=== PATIENT | female | born 1955 | race Caucasian/White ===

== ENCOUNTER → 2017-12-09 10:24 | Outpatient (CLI) | payer OTHER, SELFPAY ==
--- NOTE | 2017-12-09 10:24 | DT_ITS ---
This patient was seen during an EMR downtime December 05, 2017 - December 12, 2017. This patient may have a combination of paper and electronic documentation or all paper documentation. All documentation is viewable within the e-chart portion of [facility] for each patient visit.
[2017-12-09 13:38] LABS: Hematocrit 41.6 % (37-47); Hemoglobin 13.2 g/dl (12.0-15.0); Mean Corp Hgb Conc 31.7 g/gl (32-36); Mean Corpuscular Hgb 26.8 pg (27.0-32.0); Mean Corpuscular Volume 84.6 fL (81-99); Platelet Count 327 K/mm3 (150-450); RBC Distribution Width CV 13.8 % (11.6-14.6); RBC Distribution Width SD 42.1 fl (35.1-43.9); Red Blood Count 4.92 M/mm3 (4.2-5.4); White Blood Count 7.6 K/mm3 (4.4-11.0)
[2017-12-09 13:39] LABS: Absolute Lymphocyte Count 2.26 X10^3/ul (0.83-4.51); Absolute Neutrophil Count 4.5 X10^3/uL (2.0-7.7); Basophil# 0.04 X10^3/uL; Basophil% 0.5 % (0-1); Eosinophil# 0.19 X10^3/uL; Eosinophils% 2.5 % (0-5); Lymphocyte # 2.26 X10^3/ul (4.0); Lymphocyte % 29.9 % (19-41); Mean Platelet Vol. 10.2 fl (6.2-12.0); Monocyte% 7.9 % (0-10); Neutrophil # 4.46 X10^3/uL (2.7-7.7); Neutrophil % 58.9 % (47-70); POSITIVE COUNT NO; POSITIVE DIFFERENTIAL NO; POSITIVE MORPHOLOGY NO; Total Cells Counted 0.02 (MANUAL DIFF)
[2017-12-09 14:18] LABS: Vitamin B12 411 pg/mL (211-911)
[2017-12-09 16:38] LABS: Hemoglobin A1c 6.1 % (4.2-6.3)
[2017-12-10 06:06] LABS: ALB/GLOB Ratio 0.8 RATIO (0.9-2.4); AST(SGOT) 15 U/L (15-37); Alanine Aminotransfer ALT/SGPT 29 U/L (13-56); Albumin, Serum 3.5 g/dL (3.2-5.0); Alkaline Phosphatase 105 U/L (45-117); BUN 12 mg/dL (7-18); BUN/Creat Ratio 17.1 RATIO (10-20); Calcium,Total 9.2 mg/dL (8.5-10.1); EST Glomerular Filtration Rate 90 mL/min (>60); Est Glom Filt Rate - Afr Amer 109 mL/min (>60); Globulin 4.5 g/dL (2.2-4.2); Glucose 100 mg/dL (74-106); Microalbumin,Random Urine 15.1 mg/L (NO RANGE EST.)
[2017-12-10 06:07] LABS: Anion Gap 6 (5-15); Chloride 104 mmol/L (98-107); Cholesterol 146 mg/dL (200); High Density Lipoprotein 63 mg/dL; Magnesium 1.9 mg/dL (1.6-2.6); Sodium Level 142 mmol/L (136-145); Thyroid Stim Hormone (TSH) 2.15 uIU/mL (0.358-3.74); Triglycerides 57 mg/dL; Very Low Density Lipoprotein 11 mg/dL (5-40)
[2017-12-19 11:12] LABS: Vitamin B1, Thiamine 117.4 nmol/L (66.5-200.0)
== END ==
PROVIDERS: Family Provider Family Medicine; PCP Family Medicine; Visit Provider Family Medicine
DX: I48.91 Unspecified atrial fibrillation (principal); R63.5 Abnormal weight gain; E11.40 Type 2 diabetes mellitus with diabetic neuropathy, unspecified
CPT/HCPCS: 36415; 80053; 80061; 82043; 82570; 82607; 83036; 83735; 84425; 84443; 85025; 87070; 87075; 87077; 87186; 87205

== ENCOUNTER → 2017-12-09 15:00 | Outpatient (CLI) | payer OTHER, SELFPAY ==
--- NOTE | 2017-12-09 15:00 | DT_ITS ---
This patient was seen during an EMR downtime December 05, 2017 - December 12, 2017. This patient may have a combination of paper and electronic documentation or all paper documentation. All documentation is viewable within the e-chart portion of [facility] for each patient visit.
== END ==
PROVIDERS: Visit Provider Family Medicine
DX: L72.0 Epidermal cyst (principal)
CPT/HCPCS: 87070; 87075; 87205

== ENCOUNTER → 2018-01-09 11:47 | Outpatient (CLI) | payer OTHER, SELFPAY ==
--- NOTE | 2018-01-09 11:49 | RAD_ITS ---
STUDY: X-RAY - LEFT WRIST REASON FOR EXAM: Female, 62 years old. Pain following a fall. TECHNIQUE: 3 view(s) of the wrist were obtained. COMPARISON: None. FINDINGS: The nondisplaced fracture involving the lateral aspect of the distal radial metaphysis with extension to the articular surface. Normal radiocarpal articulation. Normal distal radioulnar articulation. Normal carpal bones. Normal carpal articulations. Normal carpometacarpal articulation of the thumb. Normal second through fifth carpometacarpal articulations. Normal visualized metacarpal bones. Soft tissue swelling. RAD/Wrist min 3 Views IMPRESSION: Nondisplaced fracture involving the lateral aspect of the distal radial metaphysis with extension to the articular surface. Soft tissue swelling. Electronically Signed: Damon Merrill MD at 12:13 EDT Tel [phone], Service support ,
--- NOTE | 2018-01-09 11:49 | RAD_ITS ---
STUDY: X-RAY - LEFT HAND REASON FOR EXAM: Female, 62 years old. Pain following a fall. TECHNIQUE: 3 view(s) of the hand. COMPARISON: None. FINDINGS: Normal radiocarpal articulation. Normal distal radioulnar joint. Normal visualized carpal bones. Normal carpal articulations Normal carpometacarpal articulation of the thumb. Normal second through fifth carpometacarpal joints. Normal metacarpi. Normal metacarpophalangeal joint of the thumb. Normal interphalangeal joint of the thumb. Normal proximal and distal phalanges of the thumb. Normal metacarpophalangeal joints of the second through fifth fingers. Normal proximal and distal interphalangeal joints of the second through fifth fingers. Normal phalanges of the second through fifth fingers. The soft tissue structures are unremarkable. RAD/Hand Min 3 Views IMPRESSION: Normal x-ray examination of the hand. Electronically Signed: Damon Merrill MD at 12:12 EDT Tel [phone], Service support ,
== END ==
PROVIDERS: Family Provider Family Medicine; PCP Family Medicine; Visit Provider Family Medicine
DX: M79.642 Pain in left hand (principal); S52.502A Unspecified fracture of the lower end of left radius, initial encounter for closed fracture; X58.XXXA Exposure to other specified factors, initial encounter; Y93.9 Activity, unspecified; Y92.9 Unspecified place or not applicable; Y99.9 Unspecified external cause status
CPT/HCPCS: 73110; 73130

== ENCOUNTER → 2018-01-16 12:50 | Outpatient (CLI) | payer OTHER, SELFPAY ==
--- NOTE | 2018-01-17 17:54 | LEAS ---
Arterial Study - Arterial Study Arterial Study: This is a 62-year-old female with history of smoking. The patient presented with paresthesias and altered perception in her lower extremities. Suspecting the presence of atherosclerotic peripheral arterial occlusive disease, the patient was brought to the noninvasive vascular laboratory at this time for the purpose of bilateral noninvasive lower extremity arterial assessment. Doppler signal assessment was used to evaluate the pulses at ankle level bilaterally. The posterior tibial and dorsalis pedis pulses were triphasic bilaterally. Segmental limb pressures were obtained bilaterally. The right ankle pressure, as determined by posterior tibial pulse, was measured at 158 mmHg. The right ankle pressure, as determined by dorsalis pedis pulse, was measured at 160 mmHg. The right digital pressure was measured at 116 mmHg. The left ankle pressure, as determined by posterior tibial pulse, was measured at 162 mmHg. The left ankle pressure, as determined by dorsalis pedis pulse, was measured at 158 mmHg. The left digital pressure was measured at 129 mmHg. Pulse-volume recordings were obtained bilaterally and segmentally. Waveform amplitudes appeared to be satisfactory at all levels bilaterally, including low thigh, calf, ankle, and digital levels. Resting ankle-brachial indices were calculated bilaterally. The resting right ankle-brachial index was calculated to be 1.05. The resting left ankle-brachial index was calculated to be 1.06. Digital-brachial indices were calculated bilaterally. The right digital-brachial index was calculated to be 0.76. The left digital-brachial index was calculated to be 0.84. The patient was then exercised on a treadmill for 3 minutes at 2.0 mph and a 5% incline. Exercise was stopped after 3 minutes due to complaint of fatigue. Ankle pressures were obtained at intervals following cessation of exercise. The right ankle pressure, 1 minute following cessation of exercise, was measured at 225 mmHg. The left ankle pressure, 1 minute following cessation of exercise, was measured at 210 mmHg. 3 minutes following cessation of exercise, the right ankle pressure was measured at 181 mmHg, and the left ankle pressure was measured at 178 mmHg. Impression: Based upon findings of this resting noninvasive lower extremity arterial study, there is no evidence of significant atherosclerotic peripheral arterial occlusive disease in the lower extremities bilaterally. Triphasic waveforms were noted at ankle level bilaterally. Resting ankle-brachial indices were bilaterally normal. Digital-brachial indices were also normal bilaterally. Following a period of exercise, ankle pressures augmented bilaterally, which is a normal physiological response. In summary, this represents a normal resting and exercise noninvasive lower extremity arterial study bilaterally.
--- NOTE | 2018-01-17 18:03 | LEAS_ITS ---
Arterial Study - Arterial Study Arterial Study: This is a 62-year-old female with history of smoking. The patient presented with paresthesias and altered perception in her lower extremities. Suspecting the presence of atherosclerotic peripheral arterial occlusive disease, the patient was brought to the noninvasive vascular laboratory at this time for the purpose of bilateral noninvasive lower extremity arterial assessment. Doppler signal assessment was used to evaluate the pulses at ankle level bilaterally. The posterior tibial and dorsalis pedis pulses were triphasic bilaterally. Segmental limb pressures were obtained bilaterally. The right ankle pressure, as determined by posterior tibial pulse, was measured at 158 mmHg. The right ankle pressure, as determined by dorsalis pedis pulse, was measured at 160 mmHg. The right digital pressure was measured at 116 mmHg. The left ankle pressure, as determined by posterior tibial pulse, was measured at 162 mmHg. The left ankle pressure, as determined by dorsalis pedis pulse, was measured at 158 mmHg. The left digital pressure was measured at 129 mmHg. Pulse-volume recordings were obtained bilaterally and segmentally. Waveform amplitudes appeared to be satisfactory at all levels bilaterally, including low thigh, calf, ankle, and digital levels. Resting ankle-brachial indices were calculated bilaterally. The resting right ankle-brachial index was calculated to be 1.05. The resting left ankle- brachial index was calculated to be 1.06. Digital-brachial indices were calculated bilaterally. The right digital- brachial index was calculated to be 0.76. The left digital-brachial index was calculated to be 0.84. The patient was then exercised on a treadmill for 3 minutes at 2.0 mph and a 5% incline. Exercise was stopped after 3 minutes due to complaint of fatigue. Ankle pressures were obtained at intervals following cessation of exercise. The right ankle pressure, 1 minute following cessation of exercise, was measured at 225 mmHg. The left ankle pressure, 1 minute following cessation of exercise, was measured at 210 mmHg. 3 minutes following cessation of exercise, the right ankle pressure was measured at 181 mmHg, and the left ankle pressure was measured at 178 mmHg. Impression: Based upon findings of this resting noninvasive lower extremity arterial study, there is no evidence of significant atherosclerotic peripheral arterial occlusive disease in the lower extremities bilaterally. Triphasic waveforms were noted at ankle level bilaterally. Resting ankle-brachial indices were bilaterally normal. Digital-brachial indices were also normal bilaterally. Following a period of exercise, ankle pressures augmented bilaterally, which is a normal physiological response. In summary, this represents a normal resting and exercise noninvasive lower extremity arterial study bilaterally.
== END ==
PROVIDERS: Family Provider Family Medicine; PCP Family Medicine; Visit Provider Family Medicine
DX: R20.9 Unspecified disturbances of skin sensation (principal); R20.2 Paresthesia of skin
CPT/HCPCS: 93924

== ENCOUNTER → 2018-03-15 10:50 | Outpatient (CLI) | payer OTHER, SELFPAY ==
[2018-03-15 11:43] LABS: Absolute Lymphocyte Count 1.76 X10^3/ul (0.83-4.51); Absolute Neutrophil Count 4.1 X10^3/uL (2.0-7.7); Basophil# 0.06 X10^3/uL; Basophil% 0.9 % (0-1); Eosinophil# 0.16 X10^3/uL; Eosinophils% 2.4 % (0-5); Hematocrit 40.2 % (37-47); Hemoglobin 12.8 g/dl (12.0-15.0); Lymphocyte # 1.76 X10^3/ul (4.0); Lymphocyte % 26.3 % (19-41); Mean Corp Hgb Conc 31.8 g/gl (32-36); Mean Corpuscular Hgb 26.7 pg (27.0-32.0); Mean Corpuscular Volume 83.9 fL (81-99); Monocyte# 0.59 X10^3/uL; Monocyte% 8.8 % (0-10); Neutrophil # 4.12 X10^3/uL (2.7-7.7); Neutrophil % 61.5 % (47-70); POSITIVE COUNT NO; POSITIVE DIFFERENTIAL NO; POSITIVE MORPHOLOGY NO; Platelet Count 320 K/mm3 (150-450); RBC Distribution Width SD 42.4 fl (35.1-43.9); Red Blood Count 4.79 M/mm3 (4.2-5.4); White Blood Count 6.7 K/mm3 (4.4-11.0)
[2018-03-15 12:08] LABS: ALB/GLOB Ratio 0.8 RATIO (0.9-2.4); AST(SGOT) 12 U/L (15-37); Alanine Aminotransfer ALT/SGPT 23 U/L (13-56); Albumin, Serum 3.4 g/dL (3.2-5.0); Alkaline Phosphatase 100 U/L (45-117); Anion Gap 11 (5-15); BUN 14 mg/dL (7-18); BUN/Creat Ratio 20.7 RATIO (10-20); Calcium,Total 9.5 mg/dL (8.5-10.1); Chloride 105 mmol/L (98-107); Cholesterol 141 mg/dL (200); Creatinine, Serum 0.68 mg/dL (0.55-1.02); EST Glomerular Filtration Rate 94 mL/min (>60); Est Glom Filt Rate - Afr Amer 113 mL/min (>60); Globulin 4.4 g/dL (2.2-4.2); Glucose 93 mg/dL (74-106); High Density Lipoprotein 59 mg/dL; Magnesium 1.9 mg/dL (1.6-2.6); Potassium 4.1 mmol/L (3.5-5.1); Protein, Total 7.8 g/dL (6.4-8.2); Sodium Level 140 mmol/L (136-145); Triglycerides 87 mg/dL; Very Low Density Lipoprotein 17 mg/dL (5-40)
[2018-03-15 12:10] LABS: Hemoglobin A1c 5.8 % (4.2-6.3)
== END ==
PROVIDERS: Family Provider Family Medicine; PCP Family Medicine; Visit Provider Family Medicine
DX: I48.91 Unspecified atrial fibrillation (principal); E11.9 Type 2 diabetes mellitus without complications; E78.5 Hyperlipidemia, unspecified
CPT/HCPCS: 36415; 80053; 80061; 83036; 83735; 85025

== ENCOUNTER 2018-03-30 12:30 | Outpatient (RCR) | payer OTHER, SELFPAY ==
--- NOTE | 2018-02-15 12:47 | HP.PTEVAL ---
Patient's Visit Information PANKAJ NIXON is a 62 year old F referred to Physical Therapy by Gerardo Adkins MD with a diagnosis of L wrist Fx. Date of Evaluation: 02/15/18 Physical Therapist: Benjamín Castro PT, - Visit Plan Frequency: 2-3x /Week Duration: 4-6 Weeks Plan: L wrist P/AA/AROM and mobilizations, stretching, strengthening, UBE, and HEP - Subjective Subjective: DOI: 01/02/18. Pt reports she was in her basement when she tripped over a rug. Pt reports she fell with resulted in many injuries, but the worst was a fractured L wrist. Pt reports she has been in a wrist brace since January 10. Pt reports she is to continue wearing that brace for 2 more weeks with exception to PT. No PMHx. Pt is R hand dominent. Pt is currently retired. Pt reports she is not able to do a lot of ADL's, such as getting dressed, secondary to her L wrist pain. No sleep diff at this time. 1/10 pain at rest, 3/10 at worst (a sudden twinge that occurs in L wrist) - Pain L wrist Pain Intensity (Out of 10): 1 Pain Intensity Range: 3 - Objective Neuro: B UE sensation is WNL to light touch. Girth at wrist: L wrist: 18 cm, R wrist 17 cm. Observation: Obvious swelling still present in L wrist. ROM: R wrist flex= 60, ext= 65, sup= 90, pro= 90; L wrist flex= 25, ext= 55, sup= 45, pro= 90 degrees. MMT: R wrist 5/5 throughout. L wrist is 2-/5 throughout available range - Goals Goal 1:: Decrease L wrist pain x 50% to aid with ADL's Goal Time Frame: 4-6 Weeks Goal 2:: Increase L wrist flex and ext x 10-15 degrees to aid with IADL's Goal Time Frame: 4-6 Weeks Goal 3:: Increase L wrist strength x 1 grade to aid with IADL's Goal Time Frame: 4-6 Weeks Goal 4:: I with HEP Goal Time Frame: 4-6 Weeks - Rehabilitation Potential Physical Therapy Diagnosis: L wrist pain, weakness, and limited ROM secondary to a R wrist Fx Rehabilitation Potential: Good - Anticipated Interventions Patient/Client Instruction: Educate patient on: Condition, Plan of Care For the Purpose of:: To improve self management Therapeutic Exercise to Include: Strength training, Endurance training, Flexibilty training, Passive ROM, Active ROM For the Purpose of:: To decrease pain, To increase ROM, To improve muscle performance and motor function Cryotherapy (ice pack, ice massage): Yes For the Purpose of:: To decrease pain Thank you for the opportunity to evaluate your patient. For Medicare and Medicare HMO plans, please review the plan of care and approve it. It will need to be FAXED BACK to us at [phone] for Medicare purposes. Please let me know if there are questions or concerns regarding this plan of care. Physician Signature: Date:
--- NOTE | 2018-03-30 12:46 | HP.PTDCSUM ---
HP - PT D/C Summary It has been my pleasure to treat PANKAJ NIXON under orders from Gerardo Adkins MD, for the diagnosis of L wrist Fx for a total of 10 visit(s). Discharge Date: Please see the following information for a summary of their discharge status. - Subjective Subjective: No pain this date. Ready for discharge - Pain L wrist Pain Intensity (Out of 10): 0 - Objective Objective/Function: L wrist pain 0/10. L wrist ROM: flex= 55, ext= 65. L wrist MMT: 5/5 throughout. Pt is I with HEP. Rx goals achieved - Goals Goal 1:: Decrease L wrist pain x 50% to aid with ADL's Goal Progress: Goal Met Goal 2:: Increase L wrist flex and ext x 10-15 degrees to aid with IADL's Goal Progress: Goal Met Goal 3:: Increase L wrist strength x 1 grade to aid with IADL's Goal Progress: Goal Met Goal 4:: I with HEP Goal Progress: Goal Met - Plan Plan: Discharge - D/C Information If there are questions or concerns regarding this patient's physical therapy, please feel free to call me at [phone]. Thank you for the referral of this patient. Sincerely, Benjamín Castro, PT,
== END 2018-03-30 19:00 | disposition home or self-care (01) ==
LOC: PT 12:30
PROVIDERS: Family Provider Family Medicine; PCP Family Medicine; Visit Provider Specialist
DX: S52.572D Other intraarticular fracture of lower end of left radius, subsequent encounter for closed fracture with routine healing (principal)
CPT/HCPCS: 97110; 97161; 97530

== ENCOUNTER → 2018-06-12 10:13 | Outpatient (CLI) | payer OTHER, SELFPAY ==
[2018-06-12 12:19] LABS: Absolute Lymphocyte Count 1.93 X10^3/ul (0.83-4.51); Basophil# 0.04 X10^3/uL; Basophil% 0.6 % (0-1); Eosinophil# 0.16 X10^3/uL; Eosinophils% 2.4 % (0-5); Hematocrit 40.2 % (37-47); Hemoglobin 12.5 g/dl (12.0-15.0); Lymphocyte # 1.93 X10^3/ul (4.0); Lymphocyte % 29.1 % (19-41); Mean Corp Hgb Conc 31.1 g/gl (32-36); Mean Corpuscular Hgb 26.7 pg (27.0-32.0); Mean Corpuscular Volume 85.9 fL (81-99); Mean Platelet Vol. 10.5 fl (6.2-12.0); Monocyte# 0.49 X10^3/uL; Monocyte% 7.4 % (0-10); Neutrophil # 4.01 X10^3/uL (2.7-7.7); Neutrophil % 60.3 % (47-70); Platelet Count 309 K/mm3 (150-450); RBC Distribution Width CV 14.2 % (11.6-14.6); RBC Distribution Width SD 43.3 fl (35.1-43.9); Red Blood Count 4.68 M/mm3 (4.2-5.4); White Blood Count 6.6 K/mm3 (4.4-11.0)
[2018-06-12 12:39] LABS: Hemoglobin A1c 6.2 % (4.2-6.3)
[2018-06-12 12:42] LABS: POSITIVE COUNT NO; POSITIVE DIFFERENTIAL NO; POSITIVE MORPHOLOGY NO
[2018-06-12 12:47] LABS: ALB/GLOB Ratio 0.9 RATIO (0.9-2.4); AST(SGOT) 13 U/L (15-37); Alanine Aminotransfer ALT/SGPT 24 U/L (13-56); Albumin, Serum 3.6 g/dL (3.2-5.0); Alkaline Phosphatase 97 U/L (45-117); Anion Gap 5 (5-15); BUN 12 mg/dL (7-18); BUN/Creat Ratio 17.7 RATIO (10-20); Calcium,Total 9.1 mg/dL (8.5-10.1); Chloride 105 mmol/L (98-107); Creatinine, Serum 0.68 mg/dL (0.55-1.02); EST Glomerular Filtration Rate 93 mL/min (>60); Est Glom Filt Rate - Afr Amer 113 mL/min (>60); Globulin 4.1 g/dL (2.2-4.2); Glucose 127 mg/dL (74-106); Magnesium 1.8 mg/dL (1.6-2.6); Potassium 3.8 mmol/L (3.5-5.1); Protein, Total 7.7 g/dL (6.4-8.2); Sodium Level 140 mmol/L (136-145)
[2018-06-12 12:52] LABS: Microalbumin,Random Urine 13.7 mg/L (NO RANGE EST.); Microalbumin:Creatinine Ratio 8.2 mg/g CRE (<30 mg/g CRE)
== END ==
PROVIDERS: Family Provider Family Medicine; PCP Family Medicine; Referring Provider Family Medicine; Visit Provider Family Medicine
DX: E11.9 Type 2 diabetes mellitus without complications (principal); I48.91 Unspecified atrial fibrillation; E78.5 Hyperlipidemia, unspecified; G47.33 Obstructive sleep apnea (adult) (pediatric)
CPT/HCPCS: 36415; 80053; 82043; 82570; 83036; 83735; 85025

== ENCOUNTER → 2018-10-25 12:12 | Outpatient (CLI) | payer OTHER, SELFPAY ==
[2018-10-18 10:53] VITALS: BMI 46.7
[2018-10-25 14:17] LABS: Absolute Lymphocyte Count 1.89 X10^3/ul (0.83-4.51); Absolute Neutrophil Count 4.1 X10^3/uL (2.0-7.7); Basophil# 0.06 X10^3/uL; Basophil% 0.9 % (0-1); Eosinophil# 0.15 X10^3/uL; Eosinophils% 2.3 % (0-5); Hematocrit 39.1 % (37-47); Hemoglobin 12.3 g/dl (12.0-15.0); Lymphocyte # 1.89 X10^3/ul (4.0); Lymphocyte % 28.5 % (19-41); Mean Corp Hgb Conc 31.5 g/gl (32-36); Mean Corpuscular Hgb 26.4 pg (27.0-32.0); Mean Corpuscular Volume 83.9 fL (81-99); Mean Platelet Vol. 10.3 fl (6.2-12.0); Monocyte# 0.47 X10^3/uL; Monocyte% 7.1 % (0-10); Neutrophil # 4.05 X10^3/uL (2.7-7.7); Neutrophil % 61.2 % (47-70); Platelet Count 297 K/mm3 (150-450); RBC Distribution Width CV 14.4 % (11.6-14.6); RBC Distribution Width SD 44.3 fl (35.1-43.9); Red Blood Count 4.66 M/mm3 (4.2-5.4); White Blood Count 6.6 K/mm3 (4.4-11.0)
[2018-10-25 14:18] LABS: POSITIVE COUNT NO; POSITIVE DIFFERENTIAL NO; POSITIVE MORPHOLOGY NO
[2018-10-25 14:34] LABS: ALB/GLOB Ratio 0.9 RATIO (0.9-2.4); AST(SGOT) 17 U/L (15-37); Alanine Aminotransfer ALT/SGPT 23 U/L (13-56); Albumin, Serum 3.5 g/dL (3.2-5.0); Alkaline Phosphatase 107 U/L (45-117); Anion Gap 3 (5-15); BUN 14 mg/dL (7-18); BUN/Creat Ratio 21.7 RATIO (10-20); Calcium,Total 9.2 mg/dL (8.5-10.1); Chloride 106 mmol/L (98-107); Cholesterol 141 mg/dL (200); Creatinine, Serum 0.64 mg/dL (0.55-1.02); EST Glomerular Filtration Rate 99 mL/min (>60); Est Glom Filt Rate - Afr Amer 119 mL/min (>60); Globulin 3.7 g/dL (2.2-4.2); Glucose 81 mg/dL (74-106); High Density Lipoprotein 57 mg/dL; Magnesium 1.9 mg/dL (1.6-2.6); Potassium 4.4 mmol/L (3.5-5.1); Protein, Total 7.2 g/dL (6.4-8.2); Sodium Level 140 mmol/L (136-145); Triglycerides 112 mg/dL; Very Low Density Lipoprotein 22 mg/dL (5-40)
[2018-10-25 14:37] LABS: Hemoglobin A1c 6.1 % (4.2-6.3)
== END ==
PROVIDERS: Family Provider Family Medicine; PCP Family Medicine; Referring Provider Family Medicine; Visit Provider Family Medicine
DX: E11.9 Type 2 diabetes mellitus without complications (principal); I48.91 Unspecified atrial fibrillation; E78.5 Hyperlipidemia, unspecified
CPT/HCPCS: 36415; 80053; 80061; 83036; 83735; 85025

== ENCOUNTER → 2019-01-08 12:26 | Outpatient (CLI) | payer OTHER, SELFPAY ==
[2018-10-18 10:53] VITALS: BMI 46.7
--- NOTE | 2019-01-08 12:28 | BI_ITS ---
MAMMOGRAPHY - BILATERAL SCREENING REASON FOR EXAM: Female, 63 years old. Routine annual screening examination. PERTINENT HISTORY: Mother with breast cancer. Remote left excisional breast biopsy. TECHNIQUE: Digital bilateral breast addison (3D mammographic acquisition) in the CC and MLO projections. 2-D mediolateral oblique (MLO) and craniocaudad (CC) views of both breasts were obtained. CAD: Full Field Digital Mammography with Computer Added Detection was performed. COMPARISON: Comparison is made with prior examination dated May 11, 2016. FINDINGS: Breast Composition: There are scattered areas of fibroglandular density. There are no dominant masses or suspicious calcifications. There is a 5.7 mm x 5.4 mm well-defined nodule in the anterior upper lateral aspect of the right breast. This has increased in size as compared to prior study. Correlation with ultrasound is recommended. Stable 4.5 mm nodule in the upper outer aspect of the left breast most likely represents a small lymph node. Stable bilateral benign-appearing axillary lymph nodes. No other significant abnormalities are identified. BI/SCREEN MAMM (CAD) W/ADDISON BILAT IMPRESSION: Slight increase in size of a right breast nodule as described. Correlation with ultrasound is recommended. ASSESSMENT CATEGORY: BIRADS Category 0: Incomplete. Need additional imaging evaluation. A letter regarding these results will be sent to the patient by the facility within 30 days. Approximately 10% of breast cancers are not detected by mammography. A normal mammogram should not delay biopsy of a clinically suspicious abnormality. [id number] Electronically Signed: Damon Merrill, at 15:35 EDT , Service support ,
== END ==
PROVIDERS: Family Provider Family Medicine; PCP Family Medicine; Referring Provider Family Medicine; Visit Provider Family Medicine
DX: Z12.31 Encounter for screening mammogram for malignant neoplasm of breast (principal)
CPT/HCPCS: 77063; 77067

== ENCOUNTER → 2019-01-11 10:38 | Outpatient (CLI) | payer OTHER, SELFPAY ==
[2018-10-18 10:53] VITALS: BMI 46.7
--- NOTE | 2019-01-11 10:40 | US_ITS ---
STUDY: ULTRASOUND BREAST - RIGHT REASON FOR EXAM: Female, 63 years old. Abnormal screening mammogram. TECHNIQUE: Axial and longitudinal images of the RIGHT breast were performed with a high resolution ultrasound transducer. COMPARISON: Comparison is made with prior mammogram dated January 08, 2019. FINDINGS: RIGHT Breast: There is a 6 mm x 7 mm x 4 mm cyst at the 9:00 position of the breast is 6 cm from the nipple. This corresponds to the mammographic findings. US/Breast Limited Unilateral IMPRESSION: 6 mm x 7 mm x 4 mm cyst. This corresponds to the mammographic findings. Routine mammographic follow-up is recommended. ASSESSMENT CATEGORY: BIRADS Category 2: Benign. A letter regarding these results will be sent to the patient by the facility within 30 days. Electronically Signed: Damon Merrill, at 12:40 EDT , Service support ,
== END ==
PROVIDERS: Family Provider Family Medicine; PCP Family Medicine; Referring Provider Family Medicine; Visit Provider Family Medicine
DX: R92.8 Other abnormal and inconclusive findings on diagnostic imaging of breast (principal); N63.0 Unspecified lump in unspecified breast
CPT/HCPCS: 76642

== ENCOUNTER → 2019-03-13 09:05 | Outpatient (CLI) | payer OTHER, SELFPAY ==
[2018-10-18 10:53] VITALS: BMI 46.7
[2019-03-13 10:19] LABS: Absolute Neutrophil Count 3.4 X10^3/uL (2.0-7.7); Basophil# 0.05 X10^3/uL; Basophil% 0.8 % (0-1); Eosinophil# 0.25 X10^3/uL; Eosinophils% 4.2 % (0-5); Hematocrit 41.5 % (37-47); Hemoglobin 12.7 g/dL (12.0-15.0); Lymphocyte % 30.5 % (19-41); Mean Corp Hgb Conc 30.6 g/dL (32-36); Mean Corpuscular Hgb 26.2 pg (27.0-32.0); Mean Corpuscular Volume 85.7 fL (81-99); Mean Platelet Vol. 10.6 fl (6.2-12.0); Monocyte# 0.44 X10^3/uL; Monocyte% 7.4 % (0-10); NRBC Flagged by Analyzer 0 % (0-5); Neutrophil # 3.36 X10^3/uL (2.7-7.7); Neutrophil % 56.9 % (47-70); Platelet Count 300 K/mm3 (150-450); RBC Distribution Width CV 13.9 % (11.6-14.6); RBC Distribution Width SD 43.2 fl (35.1-43.9); Red Blood Count 4.84 M/mm3 (4.2-5.4); White Blood Count 5.9 K/mm3 (4.4-11.0)
[2019-03-13 10:48] LABS: Hemoglobin A1c 6.5 % (4.2-6.3)
[2019-03-13 11:00] LABS: ALB/GLOB Ratio 0.8 RATIO (0.9-2.4); AST(SGOT) 15 U/L (15-37); Alanine Aminotransfer ALT/SGPT 24 U/L (13-56); Albumin, Serum 3.2 g/dL (3.2-5.0); Alkaline Phosphatase 94 U/L (45-117); Anion Gap 5 (5-15); BUN 14 mg/dL (7-18); BUN/Creat Ratio 18.4 RATIO (10-20); Calcium,Total 9.1 mg/dL (8.5-10.1); Chloride 108 mmol/L (98-107); Cholesterol 136 mg/dL (200); Creatinine, Serum 0.76 mg/dL (0.55-1.02); EST Glomerular Filtration Rate 81 mL/min (>60); Est Glom Filt Rate - Afr Amer 99 mL/min (>60); Glucose 124 mg/dL (74-106); High Density Lipoprotein 56 mg/dL; Magnesium 1.9 mg/dL (1.6-2.6); Potassium 4.2 mmol/L (3.5-5.1); Protein, Total 7.2 g/dL (6.4-8.2); Sodium Level 144 mmol/L (136-145); Triglycerides 78 mg/dL; Very Low Density Lipoprotein 16 mg/dL (5-40)
== END ==
PROVIDERS: Family Provider Family Medicine; PCP Family Medicine; Referring Provider Family Medicine; Visit Provider Family Medicine
DX: I48.91 Unspecified atrial fibrillation (principal); E11.9 Type 2 diabetes mellitus without complications; E78.5 Hyperlipidemia, unspecified
CPT/HCPCS: 36415; 80053; 80061; 83036; 83735; 85025

== ENCOUNTER → 2019-05-01 12:48 | Outpatient (CLI) | payer OTHER, SELFPAY ==
[2019-05-01 12:45] VITALS: BMI 46.7
--- NOTE | 2019-05-01 12:49 | RAD_ITS ---
STUDY: X-RAY - RIGHT KNEE REASON FOR EXAM: Female, 63 years old. Knee pain. TECHNIQUE: 4 view(s) of the knee. COMPARISON: None. FINDINGS: Normal visualized distal femur. Normal visualized proximal tibia and fibula. Normal proximal tibiofibular articulation. Moderate medial compartmental arthrosis with osteophyte formation. Mild arthrosis of the lateral femorotibial compartment. Mild arthrosis of the patellofemoral compartment. The soft tissue structures are unremarkable. RAD/Knee 4 or More Views IMPRESSION: Tricompartmental arthrosis as described. Electronically Signed: Asher Mo MD at 18:00 EDT , Service support ,
--- NOTE | 2019-05-01 12:49 | RAD_ITS ---
STUDY: X-RAY - LEFT KNEE REASON FOR EXAM: Female, 63 years old. Knee pain. TECHNIQUE: 4 view(s) of the knee. COMPARISON: None. FINDINGS: Normal visualized distal femur. Normal visualized proximal tibia and fibula. Normal proximal tibiofibular articulation. Moderate medial compartmental arthrosis with osteophytes. Mild arthrosis of the lateral femorotibial compartment. Mild arthrosis of the patellofemoral compartment. The soft tissue structures are unremarkable. RAD/Knee 4 or More Views IMPRESSION: Tricompartmental arthrosis as described. Electronically Signed: Asher Mo MD at 17:59 EDT , Service support ,
== END ==
PROVIDERS: Family Provider Family Medicine; PCP Family Medicine; Referring Provider Orthopaedic Surgery; Visit Provider Orthopaedic Surgery
DX: M25.561 Pain in right knee (principal); M25.562 Pain in left knee
CPT/HCPCS: 73564

== ENCOUNTER 2019-06-25 12:00 | Outpatient (RCR) | payer OTHER, SELFPAY ==
[2019-05-04 16:34] VITALS: BMI 45.8
--- NOTE | 2019-05-14 15:50 | HP.PTEVAL_ITS ---
Patient's Visit Information PANKAJ NIXON is a 63 year old F referred to Physical Therapy by Soraida Asencio DO with a diagnosis of BILATERAL KNEE OA. Date of Evaluation: 05/14/19 Physical Therapist: Fredy Monet, PT, Cert MDT, OCS - Visit Plan Frequency: 2x /Week Duration: 4 Weeks Plan: PT INTERVENTIONS AQUATIC PT FOR ROM/STRENGTH QUADS/HAMS ,FLEXABLITY,FUNCTIONAL STRENTHENING - Subjective Findings: This 63 y/o female presents to physical therapy with bilateral knee pain. Patient has had bilateral knee pain for 2 years worse on left > right . Pain is located on global knee pedominetly anterior. Patient aggravating factors kneeling,squatting, stairs extended walking and standing.Alleviating factors resting. Patient seen DR recommended knee brace and did x-rays. Patient knee gives way occassionally . Denies parathesia/tingling. Patient sleeping good at night. Patient pain in knees affects ADL'S ,housework tasks. Patient bilateral knee OA affects QOL. SOCIAL: . VOCATION: retired - Pain Bilateral Knee Pain Intensity (Out of 10): 8 Pain Intensity Range: 10 Comment: worse stairs/walking - Objective POSTURE: mild foward posture,mild knee valgus. NEURO: intact. PALPATION: left knee medial knee pain. GAIT: ambulates with antalgic gait with mild decrease stance. MMT: quads/hams 4-/5,hip flexion 4-/5,abd 3+/5. AROM KNEE: R~0-118 SUPINE KNEE FLEXION,L~0-115 SUPINE KNEE FLEXION. FLEXABILITY: HAMS FLEXABILITY MIN TIGHT. STAIRS: ONE STEP AT TIME - Goals Goal 1:: Patient to be Independant with Aquatic PT. Goal Time Frame: 4-6 Weeks Goal 2:: Patient to decrease knee pain by 50% or > to improve function and ADL'S Goal Time Frame: 4-6 Weeks Goal 3:: Patient to increase AROM bilateral knees by 5 degrees or> to improve stairs. Goal Time Frame: 4-6 Weeks Goal 4:: Patient increase strength by quads/hams 4/5 to improve gait. Goal Time Frame: 4-6 Weeks Goal 5:: Patient improve LFES score by 5 points or > to improve QOL. Goal Time Frame: 4-6 Weeks - Rehabilitation Potential Physical Therapy Diagnosis: This patient has bilateral knee with decrease ROM ,pain ,strength impairs ability with stairs exented walking and housework tasks and ADL's thus benifit ftom skilled PT. Rehabilitation Potential: Good - Anticipated Interventions Patient/Client Instruction: Educate patient on: Condition, Plan of Care For the Purpose of:: To decrease pain, To increase ROM, To improve muscle performance and motor function, To improve ability to perform ADL's, To improve performance and independence with ADL's, To improve ability of physical actions for home/community/work/leisure, To improve gait and locomotor functions, To improve health of tissue, To decrease soft tissue restriction, To increase flexibility/ROM, To improve endurance, To improve ability to perform tasks related to life management Therapeutic Exercise to Include: Strength training, Endurance training, Flexibilty training, In an aquatic setting, Passive ROM, Active ROM Comment: QUADS/HAMS For the Purpose of:: To decrease pain, To increase ROM, To improve muscle performance and motor function, To improve ability to perform ADL's, To increase tolerance to activity/condition/position, To improve gait and locomotor fu nctions, To improve health of tissue, To decrease soft tissue restriction, To increase flexibility/ROM, To improve ability to perform tasks related to life management Thank you for the opportunity to evaluate your patient. For Medicare and Medicare HMO plans, please review the plan of care and approve it. It will need to be FAXED BACK to us at [phone] for Medicare purposes. For Medicare only, by signing this I certify the plan of care. Please let me know if there are questions or concerns regarding this plan of care. Physician Signature:_ Date:
--- NOTE | 2019-06-25 12:54 | HP.PTDCSUM ---
HP - PT D/C Summary It has been my pleasure to treat PANKAJ NIXON under orders from Soraida Asencio DO, for the diagnosis of BILATERAL KNEE OA for a total of 9 visit(s). Discharge Date: 06/25/19 Please see the following information for a summary of their discharge status. - Subjective Subjective: Patient reports 4 /10 , Pain is about same ,elevation from chair ,stairs same. Patient does report water ex's help whiole in pool. Patient states if PT didnt help maybe synvix injection - Pain Bilateral Knee Pain Intensity (Out of 10): 4 - Overall Improvement % Improvement: 40 - Objective Objective/Function: POSTURE: mild foward posture. GAIT: reciprocal pattern. AROM: supine knee flexion R ~0-120 degrees,L ~130 degrees. MMT: quads/hams 4/5 ,hip 4-/5. STAIRS : one step at tome - Goals Goal 1:: Patient to be Independant with Aquatic PT. Goal Progress: Goal Met Goal 2:: Patient to decrease knee pain by 50% or > to improve function and ADL'S Goal Progress: Progressing Goal 3:: Patient to increase AROM bilateral knees by 5 degrees or> to improve stairs. Goal Progress: Goal Met Goal 4:: Patient increase strength by quads/hams 4/5 to improve gait. Goal Progress: Goal Met Goal 5:: Patient improve LFES score by 5 points or > to improve QOL. Goal Progress: Goal Met - Plan Plan: D/C RTD - D/C Information Discharge Comments: RTD POSSIBLE GEL INJECTION If there are questions or concerns regarding this patient's physical therapy, please feel free to call me at [phone]. Thank you for the referral of this patient. Sincerely, Fredy Monet, PT, Cert MDT, OCS
== END 2019-06-25 19:00 | disposition home or self-care (01) ==
LOC: PT 12:00
PROVIDERS: Family Provider Family Medicine; PCP Family Medicine; Referring Provider Orthopaedic Surgery; Visit Provider Orthopaedic Surgery
DX: M17.0 Bilateral primary osteoarthritis of knee (principal)
CPT/HCPCS: 97113; 97162; 97530

== ENCOUNTER → 2019-07-19 13:32 | Outpatient (CLI) | payer OTHER, SELFPAY ==
[2019-07-17 13:54] VITALS: BMI 45.3
[2019-07-19 15:38] LABS: Absolute Lymphocyte Count 2.07 X10^3/uL (0.83-4.51); Absolute Neutrophil Count 4.2 X10^3/uL (2.0-7.7); Basophil# 0.08 X10^3/uL; Basophil% 1.1 % (0-1); Eosinophil# 0.15 X10^3/uL; Eosinophils% 2.1 % (0-5); Hematocrit 41.8 % (37-47); Hemoglobin 12.9 g/dL (12.0-15.0); Lymphocyte # 2.07 X10^3/ul (4.0); Lymphocyte % 29.5 % (19-41); Mean Corp Hgb Conc 30.9 g/dL (32-36); Mean Corpuscular Hgb 26.1 pg (27.0-32.0); Mean Corpuscular Volume 84.6 fL (81-99); Mean Platelet Vol. 10.5 fl (6.2-12.0); Monocyte# 0.54 X10^3/uL; Monocyte% 7.7 % (0-10); NRBC Flagged by Analyzer 0 % (0-5); Neutrophil # 4.16 X10^3/uL (2.7-7.7); Neutrophil % 59.3 % (47-70); Platelet Count 321 K/mm3 (150-450); RBC Distribution Width CV 13.6 % (11.6-14.6); RBC Distribution Width SD 41.5 fl (35.1-43.9); Red Blood Count 4.94 M/mm3 (4.2-5.4)
[2019-07-19 15:52] LABS: ALB/GLOB Ratio 0.8 RATIO (0.9-2.4); AST(SGOT) 14 U/L (15-37); Alanine Aminotransfer ALT/SGPT 30 U/L (13-56); Albumin, Serum 3.5 g/dL (3.2-5.0); Alkaline Phosphatase 94 U/L (45-117); Anion Gap 3 (5-15); BUN 11 mg/dL (7-18); BUN/Creat Ratio 15.3 RATIO (10-20); Calcium,Total 9.3 mg/dL (8.5-10.1); Chloride 107 mmol/L (98-107); Cholesterol 120 mg/dL (200); Creatinine, Serum 0.72 mg/dL (0.55-1.02); EST Glomerular Filtration Rate 87 mL/min (>60); Est Glom Filt Rate - Afr Amer 105 mL/min (>60); Globulin 4.2 g/dL (2.2-4.2); Glucose 97 mg/dL (74-106); High Density Lipoprotein 56 mg/dL; Magnesium 1.9 mg/dL (1.6-2.6); Potassium 4.2 mmol/L (3.5-5.1); Protein, Total 7.7 g/dL (6.4-8.2); Sodium Level 140 mmol/L (136-145); Triglycerides 80 mg/dL; Very Low Density Lipoprotein 16 mg/dL (5-40)
[2019-07-19 16:17] LABS: Microalbumin,Random Urine 13.2 mg/L (NO RANGE EST.); Microalbumin:Creatinine Ratio 6.9 mg/g CRE (<30 mg/g CRE)
[2019-07-19 17:25] LABS: Hemoglobin A1c 6.2 % (4.2-6.3)
== END ==
PROVIDERS: PCP Family Medicine; Visit Provider Family Medicine
DX: E11.9 Type 2 diabetes mellitus without complications (principal); E78.5 Hyperlipidemia, unspecified; I48.91 Unspecified atrial fibrillation
CPT/HCPCS: 36415; 80053; 80061; 82043; 82570; 83036; 83735; 85025

== ENCOUNTER → 2019-10-18 | Outpatient (CLI) | payer SELFPAY ==
[2019-07-17 13:54] VITALS: BMI 45.3
== END | disposition home or self-care (01) ==
LOC: LABSPEC 15:17
PROVIDERS: PCP Family Medicine; Referring Provider Family Medicine; Visit Provider Family Medicine
DX: N39.0 Urinary tract infection, site not specified (principal)
CPT/HCPCS: 87086; 87088; 87186

== ENCOUNTER → 2019-11-12 09:53 | Outpatient (CLI) | payer MEDICARE, SELFPAY ==
[2019-07-17 13:54] VITALS: BMI 45.3
[2019-11-12 12:33] LABS: ALB/GLOB Ratio 0.8 RATIO (0.9-2.4); AST(SGOT) 16 U/L (15-37); Alanine Aminotransfer ALT/SGPT 27 U/L (13-56); Albumin, Serum 3.5 g/dL (3.2-5.0); Alkaline Phosphatase 89 U/L (45-117); Anion Gap 5 (5-15); BUN 13 mg/dL (7-18); BUN/Creat Ratio 19.5 RATIO (10-20); Calcium,Total 9.2 mg/dL (8.5-10.1); Chloride 107 mmol/L (98-107); Creatinine, Serum 0.67 mg/dL (0.55-1.02); EST Glomerular Filtration Rate 94 mL/min (>60); Est Glom Filt Rate - Afr Amer 114 mL/min (>60); Globulin 4.2 g/dL (2.2-4.2); Glucose 116 mg/dL (74-106); Magnesium 1.8 mg/dL (1.6-2.6); Potassium 3.8 mmol/L (3.5-5.1); Protein, Total 7.7 g/dL (6.4-8.2); Sodium Level 141 mmol/L (136-145)
[2019-11-12 12:35] LABS: Hemoglobin A1c 6.3 % (4.2-6.3)
== END ==
PROVIDERS: PCP Family Medicine; Visit Provider Family Medicine
DX: E11.9 Type 2 diabetes mellitus without complications (principal); I48.91 Unspecified atrial fibrillation
CPT/HCPCS: 36415; 80053; 83036; 83735

== ENCOUNTER → 2020-02-14 12:45 | Outpatient (CLI) | payer MEDICARE, SELFPAY ==
[2019-12-11 11:09] VITALS: BMI 46.6
[2020-01-30 13:12] VITALS: BMI 46.6
--- NOTE | 2020-02-14 12:47 | BI_ITS ---
MAMMOGRAPHY - BILATERAL SCREENING REASON FOR EXAM: Female, 64 years old. Routine annual screening examination. PERTINENT HISTORY: Mother with breast cancer. Remote left excisional breast biopsy. TECHNIQUE: Digital bilateral breast addison (3D mammographic acquisition) in the CC and MLO projections. 2-D mediolateral oblique (MLO) and craniocaudad (CC) views of both breasts were obtained. CAD: Full Field Digital Mammography with Computer Added Detection was performed. COMPARISON: Comparison is made with prior examination dated 01/08/2019. FINDINGS: Breast Composition: There are scattered areas of fibroglandular density. There are no dominant masses or suspicious calcifications. Stable benign-appearing bilateral axillary lymph nodes. Stable 5.7 mm x 5.4 mm well-defined nodule in the anterior upper lateral aspect of the right breast. A similar appearing nodule is also seen in the upper lateral portion of the left breast. These most likely represent small lymph nodes. No other significant abnormalities are identified. There has been no significant change since the prior study. BI/SCREEN MAMM (CAD) W/ADDISON BILAT IMPRESSION: Stable bilateral screening mammogram. Yearly follow-up mammogram recommended. (A) ASSESSMENT CATEGORY: BIRADS Category 2: Benign. A letter regarding these results will be sent to the patient by the facility within 30 days. Approximately 10% of breast cancers are not detected by mammography. A normal mammogram should not delay biopsy of a clinically suspicious abnormality. [id number] Electronically Signed: Damon Merrill, at 15:03 EDT , Service support ,
--- NOTE | 2020-02-14 13:26 | BD_ITS ---
STUDY: DUAL ENERGY X-RAY ABSORPTIOMETRY / DXA REASON FOR EXAM: Female, 64 years old. 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 COMPARISON: None. FINDINGS: Lumbar Spine (L1-L4): g/cm2 (1.162) / T-score (-0.1) / Z-score (1.5) Findings are suggestive of normal bone density with a low fracture risk. Left Femur Total: g/cm2 (1.011) / T-score (0.0) / Z-score (1.2) Left Femoral Neck: g/cm2 (0.944) / T-score (-0.7) / Z-score (0.8) Right Femur Total: g/cm2 (0.875) / T-score (-1.1) / Z-score (0.2) Right Femoral Neck: g/cm2 (0.781) / T-score (-1.8) / Z-score (-0.4) BD/Dexa Bone Density Study IMPRESSION: The patient is considered osteopenic as outlined below according to World Isaac Organization (WHO) criteria with a moderate fracture risk. Reference Information: The T-score is the number of standard deviations above or below the standard which is normal for young adults at their peak bone mineral density. The World Health Organization (WHO) interprets the T-scores as follows: Above -1 Normal bone density Between -1 and -2.5 Osteopenia Equal to / or below -2.5 Osteoporosis As a practical clinical guideline, osteopenia may be graded as follows: Mild -1 through -1.5 Moderate -1.6 through -2.0 Severe -2.1 through -2.4 The Z-score is the number of standard deviations above or below age-matched controls. A Z-score of less than -1.5 would be considered abnormal. References: 1. NIH Osteoporosis and Related Bone Diseases http://www.osteo.org 2. International Society for Clinical Densitometry http://www.iscd.org 3. National Osteoporosis Foundation http://www.nof.org Electronically Signed: Damon Merrill, at 15:59 EDT , Service support ,
--- NOTE | 2020-02-14 14:15 | LES_PTH ---
PATIENT: PANKAJ NIXON LOC: [facility] U#:[id number] AGE/SX: 69/F ROOM: RE02/14/[address]: Dr. Lucio Romero MD : 1955 BED: DIS: SPEC #: [id number] RECD: 02/14/20 15:14 STATUS: ALYSSA CEM #: [id number] BHAVNA: 02/14/20 14:[address]: Zack Monte DEPT: SURGICAL PATHOLOGY RECD BY: Yevgeniy Heath ENTERED: 02/15/20 07:48 SP TYPE: Lesion OTHR DR: Dr. Lucio Romero MD Tissues: Skin of breast, NOS Procedures: Surgery Specimen Level IV HEADER OPERATION: Shave biopsy skin lesion under left breast PRE-OP DIAGNOSIS: Capillary hemangioma TISSUE SUBMITTED: Skin lesion under left breast MICROSCOPIC DIAGNOSIS Skin lesion under left breast, biopsy: Benign vascular proliferation, consistent with capillary hemangioma. SJ:chloé 02/18/20 MICROSCOPIC DESCRIPTION Slides are reviewed. GROSS DESCRIPTION Received in fixative is one container labeled with the patient's name and designated skin lesion under left breast. The specimen consists of a piece of collier-brown skin measuring 1 x 0.6 x 0.5 cm. The specimen is inked, bisected and submitted entirely in one cassette. / DOMINIC:chloé 02/15/20 TC:1 CPT: 33317
== END ==
PROVIDERS: PCP Family Medicine; Referring Provider Family Medicine; Visit Provider Family Medicine
DX: Z12.31 Encounter for screening mammogram for malignant neoplasm of breast (principal); Z13.820 Encounter for screening for osteoporosis; E11.9 Type 2 diabetes mellitus without complications; M85.80 Other specified disorders of bone density and structure, unspecified site; Z80.3 Family history of malignant neoplasm of breast
CPT/HCPCS: 77063; 77067; 77080; 88305

== ENCOUNTER → 2020-04-08 09:53 | Outpatient (CLI) | payer MEDICARE, SELFPAY ==
[2020-03-20 14:46] VITALS: BMI 46.6
[2020-04-08 12:29] LABS: Absolute Lymphocyte Count 1.81 X10^3/uL (0.83-4.51); Absolute Neutrophil Count 3.6 X10^3/uL (2.0-7.7); Basophil# 0.06 X10^3/uL; Eosinophils% 3.2 % (0-5); Hematocrit 40.6 % (37-47); Hemoglobin 12.3 g/dL (12.0-15.0); Lymphocyte # 1.81 X10^3/ul (4.0); Lymphocyte % 29.1 % (19-41); Mean Corp Hgb Conc 30.3 g/dL (32-36); Mean Corpuscular Hgb 26.6 pg (27.0-32.0); Mean Corpuscular Volume 87.7 fL (81-99); Mean Platelet Vol. 10.9 fl (6.2-12.0); Monocyte# 0.54 X10^3/uL; Monocyte% 8.7 % (0-10); NRBC Flagged by Analyzer 0 % (0-5); Neutrophil % 57.8 % (47-70); Platelet Count 303 K/mm3 (150-450); RBC Distribution Width CV 13.6 % (11.6-14.6); RBC Distribution Width SD 43.8 fl (35.1-43.9); Red Blood Count 4.63 M/mm3 (4.2-5.4); White Blood Count 6.2 K/mm3 (4.4-11.0)
[2020-04-08 12:47] LABS: ALB/GLOB Ratio 0.8 RATIO (0.9-2.4); AST(SGOT) 16 U/L (15-37); Alanine Aminotransfer ALT/SGPT 31 U/L (13-56); Albumin, Serum 3.3 g/dL (3.2-5.0); Alkaline Phosphatase 79 U/L (45-117); Anion Gap 3 (5-15); BUN 13 mg/dL (7-18); BUN/Creat Ratio 20.4 RATIO (10-20); Calcium,Total 9.5 mg/dL (8.5-10.1); Chloride 107 mmol/L (98-107); Cholesterol 127 mg/dL (200); Creatinine, Serum 0.64 mg/dL (0.55-1.02); EST Glomerular Filtration Rate 99 mL/min (>60); Est Glom Filt Rate - Afr Amer 120 mL/min (>60); Globulin 4.2 g/dL (2.2-4.2); Glucose 117 mg/dL (74-106); High Density Lipoprotein 60 mg/dL; Potassium 4.3 mmol/L (3.5-5.1); Protein, Total 7.5 g/dL (6.4-8.2); Sodium Level 140 mmol/L (136-145); Triglycerides 80 mg/dL; Very Low Density Lipoprotein 16 mg/dL (5-40)
[2020-04-08 12:54] LABS: Hemoglobin A1c 6.2 % (3.8-5.6)
[2020-04-08 12:55] LABS: Microalbumin,Random Urine 12.9 mg/L (NO RANGE EST.); Microalbumin:Creatinine Ratio 8.7 mg/g CRE (<30 mg/g CRE)
== END ==
PROVIDERS: PCP Family Medicine; Referring Provider Family Medicine; Visit Provider Family Medicine
DX: I48.91 Unspecified atrial fibrillation (principal); E78.5 Hyperlipidemia, unspecified; E11.9 Type 2 diabetes mellitus without complications
CPT/HCPCS: 36415; 80053; 80061; 82043; 82570; 83036; 83735; 85025

== ENCOUNTER → 2020-04-24 14:43 | Outpatient (CLI) | payer MEDICARE, SELFPAY ==
[2020-03-20 14:46] VITALS: BMI 46.6
--- NOTE | 2020-04-24 14:45 | RAD_ITS ---
STUDY: X-RAY CHEST REASON FOR EXAM: Female, 64 years old. COUGHING AND SOB FOR A FEW WEEKS NOW. TECHNIQUE: PA and lateral views of the chest. COMPARISON: None. FINDINGS: The lungs are clear and expanded. Scattered calcified granulomas. There is no demonstrated pleural abnormality. Normal size heart. Normal mediastinum and brenda. Normal visualized pulmonary arteries. Normal visualized aortic arch and descending thoracic aorta. There are diffuse degenerative changes of the visualized thoracic spine. Increased kyphosis. Normal visualized ribs, clavicles, and shoulders. There is no demonstrated abnormality of the visualized soft tissue structures of the upper abdomen. RAD/Chest PA and Lateral IMPRESSION: No acute abnormality is seen. Electronically Signed: Damon Merrill, at 15:20 EDT , Service support ,
== END ==
PROVIDERS: PCP Family Medicine; Referring Provider Family Medicine; Visit Provider Family Medicine
DX: J20.9 Acute bronchitis, unspecified (principal)
CPT/HCPCS: 71046

== ENCOUNTER → 2020-08-07 16:02 | Outpatient (CLI) | payer BC, SELFPAY ==
[2020-03-20 14:46] VITALS: BMI 46.6
[2020-08-07 17:44] LABS: Absolute Lymphocyte Count 2.62 X10^3/uL (0.83-4.51); Absolute Neutrophil Count 5.1 X10^3/uL (2.0-7.7); Basophil# 0.08 X10^3/uL; Basophil% 0.9 % (0-1); Eosinophil# 0.24 X10^3/uL; Eosinophils% 2.7 % (0-5); Hematocrit 42.3 % (37-47); Hemoglobin 12.9 g/dL (12.0-15.0); Lymphocyte # 2.62 X10^3/ul (4.0); Lymphocyte % 29.6 % (19-41); Mean Corp Hgb Conc 30.5 g/dL (32-36); Mean Corpuscular Hgb 26.2 pg (27.0-32.0); Mean Platelet Vol. 10.4 fl (6.2-12.0); Monocyte# 0.81 X10^3/uL; Monocyte% 9.1 % (0-10); NRBC Flagged by Analyzer 0 % (0-5); Neutrophil # 5.08 X10^3/uL (2.7-7.7); Neutrophil % 57.4 % (47-70); Platelet Count 320 K/mm3 (150-450); RBC Distribution Width CV 13.7 % (11.6-14.6); RBC Distribution Width SD 42.9 fl (35.1-43.9); Red Blood Count 4.92 M/mm3 (4.2-5.4); White Blood Count 8.9 K/mm3 (4.4-11.0)
[2020-08-07 18:09] LABS: Hemoglobin A1c 6.1 % (3.8-5.6)
[2020-08-07 18:30] LABS: ALB/GLOB Ratio 0.8 RATIO (0.9-2.4); AST(SGOT) 28 U/L (15-37); Alanine Aminotransfer ALT/SGPT 38 U/L (13-56); Albumin, Serum 3.6 g/dL (3.2-5.0); Alkaline Phosphatase 101 U/L (45-117); Anion Gap 6 (5-15); BUN 12 mg/dL (7-18); BUN/Creat Ratio 16.3 RATIO (10-20); Calcium,Total 9.4 mg/dL (8.5-10.1); Chloride 102 mmol/L (98-107); Cholesterol 142 mg/dL (200); Creatinine, Serum 0.74 mg/dL (0.55-1.02); EST Glomerular Filtration Rate 84 mL/min (>60); Est Glom Filt Rate - Afr Amer 101 mL/min (>60); Globulin 4.3 g/dL (2.2-4.2); Glucose 87 mg/dL (74-106); High Density Lipoprotein 64 mg/dL; Protein, Total 7.9 g/dL (6.4-8.2); Sodium Level 137 mmol/L (136-145); Triglycerides 108 mg/dL; Very Low Density Lipoprotein 22 mg/dL (5-40)
== END ==
PROVIDERS: PCP Family Medicine; Referring Provider Family Medicine; Visit Provider Family Medicine
DX: E11.9 Type 2 diabetes mellitus without complications (principal); I48.91 Unspecified atrial fibrillation; E78.5 Hyperlipidemia, unspecified
CPT/HCPCS: 36415; 80053; 80061; 83036; 83735; 85025

== ENCOUNTER → 2020-08-27 13:31 | Outpatient (CLI) | payer MEDICARE, SELFPAY ==
[2020-08-21 12:04] VITALS: BMI 47.2
== END ==
PROVIDERS: PCP Family Medicine; Referring Provider Internal Medicine Cardiovascular Disease; Visit Provider Internal Medicine Cardiovascular Disease
DX: I48.0 Paroxysmal atrial fibrillation (principal); I48.92 Unspecified atrial flutter
CPT/HCPCS: 93306; Q9957; A4216; C8929

== ENCOUNTER 2020-09-11 07:49 | Outpatient (RCR) | payer MEDICARE, SELFPAY ==
[2020-08-21 12:04] VITALS: BMI 47.2
[2020-09-11] MEDS: COVID-19 VACC, MRNA(PFIZER)/PF 30 MCG/0.3 ML SYRINGE IM (13:01)
[2020-10-02] MEDS: COVID-19 VACC, MRNA(PFIZER)/PF 30 MCG/0.3 ML SYRINGE IM (13:37)
== END 2020-12-09 23:59 ==
LOC: IMMUN 07:49
PROVIDERS: PCP Family Medicine; Visit Provider Family Medicine
DX: Z23 Encounter for immunization (principal)
CPT/HCPCS: 0001A; 0002A; 91300

== ENCOUNTER → 2021-05-13 13:37 | Outpatient (CLI) | payer MEDICARE, SELFPAY ==
[2021-05-13 15:14] LABS: Absolute Lymphocyte Count 2.05 X10^3/uL (0.83-4.51); Absolute Neutrophil Count 3.7 X10^3/uL (2.0-7.7); Basophil# 0.07 X10^3/uL; Basophil% 1.1 % (0-1); Eosinophil# 0.17 X10^3/uL; Eosinophils% 2.6 % (0-5); Hematocrit 41.2 % (37-47); Hemoglobin 12.6 g/dL (12.0-15.0); Lymphocyte # 2.05 X10^3/ul (0.83-4.51); Lymphocyte % 31.2 % (19-41); Mean Corp Hgb Conc 30.6 g/dL (32-36); Mean Corpuscular Hgb 26.3 pg (27.0-32.0); Mean Corpuscular Volume 85.8 fL (81-99); Mean Platelet Vol. 10.2 fl (6.2-12.0); Monocyte# 0.58 X10^3/uL; Monocyte% 8.8 % (0-10); NRBC Flagged by Analyzer 0 % (0-5); Neutrophil # 3.69 X10^3/uL (2.7-7.7); Platelet Count 330 K/mm3 (150-450); RBC Distribution Width CV 13.6 % (11.6-14.6); RBC Distribution Width SD 42.6 fl (35.1-43.9); White Blood Count 6.6 K/mm3 (4.4-11.0)
[2021-05-13 15:35] LABS: Hemoglobin A1c 5.8 % (3.8-5.6)
[2021-05-13 15:47] LABS: Vitamin D,25 Hydroxy 74.9 ng/mL
[2021-05-13 15:51] LABS: ALB/GLOB Ratio 0.8 RATIO (0.9-2.4); AST(SGOT) 21 U/L (15-37); Alanine Aminotransfer ALT/SGPT 31 U/L (13-56); Albumin, Serum 3.4 g/dL (3.2-5.0); Alkaline Phosphatase 71 U/L (45-117); Anion Gap 5 (5-15); BUN 12 mg/dL (7-18); BUN/Creat Ratio 19.2 RATIO (10-20); Calcium,Total 9.7 mg/dL (8.5-10.1); Chloride 103 mmol/L (98-107); Cholesterol 126 mg/dL (200); Creatinine, Serum 0.63 mg/dL (0.55-1.02); EST Glomerular Filtration Rate 101 mL/min (>60); Est Glom Filt Rate - Afr Amer 122 mL/min (>60); Globulin 4.3 g/dL (2.2-4.2); Glucose 94 mg/dL (74-106); High Density Lipoprotein 57 mg/dL; Magnesium 1.8 mg/dL (1.6-2.6); Potassium 4.4 mmol/L (3.5-5.1); Protein, Total 7.7 g/dL (6.4-8.2); Sodium Level 138 mmol/L (136-145); Triglycerides 91 mg/dL; Very Low Density Lipoprotein 18 mg/dL (5-40)
== END ==
PROVIDERS: PCP Family Medicine; Referring Provider Family Medicine; Visit Provider Family Medicine
DX: E11.9 Type 2 diabetes mellitus without complications (principal); I48.91 Unspecified atrial fibrillation; E78.5 Hyperlipidemia, unspecified; M85.80 Other specified disorders of bone density and structure, unspecified site
CPT/HCPCS: 36415; 80053; 80061; 82306; 83036; 83735; 85025

== ENCOUNTER 2021-09-04 06:07 | Outpatient (CLI) | payer MEDICARE, SELFPAY ==
--- NOTE | 2021-09-04 18:12 | STRESSREP ---
Stress Test Report Pharmacologic myocardial perfusion stress test. 65-year-old lady with a history of paroxysmal atrial fibrillation. Stress protocol: Resting KG demonstrates atrial fibrillation with a rate of 125 bpm resting blood pressure is 152/98 mmHg. 0.4 mg of regadenoson was infused per usual protocol followed by Intravenous saline flush injection continuous EKG monitoring was performed. The maximum heart rate attained was 137 bpm which was 88% of max impact at heart rate the maximum workload was 1 metabolic equivalent. There were no ST or T wave changes noted to suggest abnormal flow reserve. Myocardial perfusion protocol. 14.6 mCi of technetium 99 sestamibi was injected at rest. 0.4 mg of regadenoson was infused per usual protocol. At peak infusion 44.5 mCi of technetium 99m sestamibi was injected stress images were obtained stress and rest images were reconstructed and compared in the short axis vertical long and horizontal long axis. Perfusion SPECT analysis: Review of the images demonstrate normal perfusion noted in all areas of the myocardium. The resting images similarly demonstrate normal uptake of tracer noted in all areas of the myocardium. No areas of reversibility are noted suggest ischemia. Conclusion: Normal pharmacologic myocardial perfusion stress test.
== END 2021-09-04 23:59 | disposition home or self-care (01) ==
PROVIDERS: PCP Family Medicine; Referring Provider Nurse Practitioner Family; Visit Provider Nurse Practitioner Family
DX: I48.0 Paroxysmal atrial fibrillation (principal); R07.9 Chest pain, unspecified
CPT/HCPCS: 78452; 93017; A9500; A4216; J2785

== ENCOUNTER 2021-10-07 11:21 | Outpatient (CLI) | payer MEDICARE, SELFPAY ==
[2021-10-07 12:27] LABS: Absolute Lymphocyte Count 1.76 X10^3/uL (0.83-4.51); Absolute Neutrophil Count 3.7 X10^3/uL (2.0-7.7); Basophil# 0.06 X10^3/uL; Eosinophil# 0.15 X10^3/uL; Eosinophils% 2.5 % (0-5); Hematocrit 41.9 % (37-47); Hemoglobin 12.9 g/dL (12.0-15.0); Lymphocyte # 1.76 X10^3/ul (0.83-4.51); Lymphocyte % 28.8 % (19-41); Mean Corp Hgb Conc 30.8 g/dL (32-36); Mean Corpuscular Hgb 26.8 pg (27.0-32.0); Mean Corpuscular Volume 86.9 fL (81-99); Mean Platelet Vol. 10.4 fl (6.2-12.0); Monocyte# 0.47 X10^3/uL; Monocyte% 7.7 % (0-10); NRBC Flagged by Analyzer 0 % (0-5); Neutrophil # 3.66 X10^3/uL (2.7-7.7); Neutrophil % 59.7 % (47-70); Platelet Count 299 K/mm3 (150-450); RBC Distribution Width CV 13.4 % (11.6-14.6); RBC Distribution Width SD 43.1 fl (35.1-43.9); Red Blood Count 4.82 M/mm3 (4.2-5.4); White Blood Count 6.1 K/mm3 (4.4-11.0)
[2021-10-07 12:42] LABS: Hemoglobin A1c 5.9 % (3.8-5.6)
[2021-10-07 13:03] LABS: ALB/GLOB Ratio 0.8 RATIO (0.9-2.4); AST(SGOT) 13 U/L (15-37); Alanine Aminotransfer ALT/SGPT 24 U/L (13-56); Albumin, Serum 3.3 g/dL (3.2-5.0); Alkaline Phosphatase 77 U/L (45-117); Anion Gap 2 (5-15); BUN 13 mg/dL (7-18); BUN/Creat Ratio 16.1 RATIO (10-20); Calcium,Total 9.2 mg/dL (8.5-10.1); Chloride 105 mmol/L (98-107); Cholesterol 142 mg/dL (200); EST Glomerular Filtration Rate 76 mL/min (>60); Est Glom Filt Rate - Afr Amer 91 mL/min (>60); Globulin 4.1 g/dL (2.2-4.2); Glucose 123 mg/dL (74-106); High Density Lipoprotein 62 mg/dL; Magnesium 1.9 mg/dL (1.6-2.6); Potassium 4.2 mmol/L (3.5-5.1); Protein, Total 7.4 g/dL (6.4-8.2); Sodium Level 137 mmol/L (136-145); Thyroid Stim Hormone (TSH) 3.81 uIU/mL (0.358-3.74); Triglycerides 66 mg/dL; Very Low Density Lipoprotein 13 mg/dL (5-40)
[2021-10-07 15:25] LABS: Microalbumin,Random Urine 11.7 mg/L (NO RANGE EST.)
[2021-10-08 11:05] LABS: T4 Free Direct 0.87 ng/dL (0.76-1.46)
== END 2021-10-07 23:59 | disposition home or self-care (01) ==
LOC: MFPLAB 11:22
PROVIDERS: PCP Family Medicine; Referring Provider Family Medicine; Visit Provider Family Medicine
DX: I48.91 Unspecified atrial fibrillation (principal); E11.9 Type 2 diabetes mellitus without complications; E78.5 Hyperlipidemia, unspecified
CPT/HCPCS: 36415; 80053; 80061; 82043; 82570; 83036; 83735; 84432; 84439; 84443; 85025; 86376; 86800

== ENCOUNTER → 2022-03-01 | Outpatient (CLI) | payer MEDICARE, SELFPAY ==
[2022-03-01 12:41] LABS: Absolute Lymphocyte Count 1.75 X10^3/uL (0.83-4.51); Absolute Neutrophil Count 3.7 X10^3/uL (2.0-7.7); Basophil# 0.07 X10^3/uL; Basophil% 1.1 % (0-1); Eosinophil# 0.13 X10^3/uL; Eosinophils% 2.1 % (0-5); Hematocrit 40.2 % (37-47); Lymphocyte # 1.75 X10^3/ul (0.83-4.51); Lymphocyte % 28.6 % (19-41); Mean Corp Hgb Conc 32.3 g/dL (32-36); Mean Corpuscular Hgb 27.9 pg (27.0-32.0); Mean Corpuscular Volume 86.3 fL (81-99); Mean Platelet Vol. 10.5 fl (6.2-12.0); Monocyte# 0.45 X10^3/uL; Monocyte% 7.4 % (0-10); NRBC Flagged by Analyzer 0 % (0-5); Neutrophil # 3.69 X10^3/uL (2.7-7.7); Neutrophil % 60.5 % (47-70); Platelet Count 321 K/mm3 (150-450); RBC Distribution Width CV 13.9 % (11.6-14.6); RBC Distribution Width SD 43.7 fl (35.1-43.9); Red Blood Count 4.66 M/mm3 (4.2-5.4); White Blood Count 6.1 K/mm3 (4.4-11.0)
[2022-03-01 13:11] LABS: ALB/GLOB Ratio 0.8 RATIO (0.9-2.4); AST(SGOT) 13 U/L (15-37); Alanine Aminotransfer ALT/SGPT 21 U/L (13-56); Albumin, Serum 3.3 g/dL (3.2-5.0); Alkaline Phosphatase 83 U/L (45-117); Anion Gap 4 (5-15); BUN 13 mg/dL (7-18); BUN/Creat Ratio 18.2 RATIO (10-20); Calcium,Total 9.4 mg/dL (8.5-10.1); Chloride 104 mmol/L (98-107); Cholesterol 134 mg/dL (200); Creatinine, Serum 0.71 mg/dL (0.55-1.02); EST Glomerular Filtration Rate 87 mL/min (>60); Est Glom Filt Rate - Afr Amer 105 mL/min (>60); Glucose 108 mg/dL (74-106); High Density Lipoprotein 60 mg/dL; Magnesium 1.9 mg/dL (1.6-2.6); Potassium 4.3 mmol/L (3.5-5.1); Protein, Total 7.3 g/dL (6.4-8.2); Sodium Level 140 mmol/L (136-145); T4 Free Direct 0.87 ng/dL (0.76-1.46); Thyroid Stim Hormone (TSH) 2.99 uIU/mL (0.358-3.74); Triglycerides 81 mg/dL; Very Low Density Lipoprotein 16 mg/dL (5-40)
[2022-03-01 13:59] LABS: Hemoglobin A1c 6.2 % (3.8-5.6)
== END | disposition home or self-care (01) ==
LOC: MFPLAB 11:09
PROVIDERS: PCP Family Medicine; Visit Provider Family Medicine
DX: E11.9 Type 2 diabetes mellitus without complications (principal); I48.91 Unspecified atrial fibrillation; E03.8 Other specified hypothyroidism
CPT/HCPCS: 36415; 80053; 80061; 83036; 83735; 84439; 84443; 85025

== ENCOUNTER 2022-04-16 16:05 | Emergency (ER) | payer MEDICARE, SELFPAY ==
[2022-04-16] VITALS (7 sets, daily range): BP systolic 117–156; BP diastolic 77–110; PULSE 89–152; RESP 14–22; TEMP 36.8; O2SAT 92–98; BMI 45.7
--- NOTE | 2022-04-16 16:23 | EKG12_ITS ---
Test Reason : AFIB Blood Pressure : / mmHG Vent. Rate : 150 BPM Atrial Rate : 300 BPM P-R Int : 000 ms QRS Dur : 072 ms QT Int : 318 ms P-R-T Axes : 000 -08 180 degrees QTc Int : 502 ms Atrial flutter with 2:1 A-V conduction Nonspecific ST and T wave abnormality Abnormal ECG Confirmed by ELBERT FLETCHER, ZACHARY ([id number]), development editor IVETTE WHITT ([id number]) on 04/19/2022 9:55:33 A M Referred By: NORAH/BRENTON Confirmed By:YOUNG BOSWELL MD
--- NOTE | 2022-04-16 16:25 | EDS_ITS ---
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 They did an EKG and found that she is in A. fib. The patient has been anticoagulated on Xarelto for the past 3 years or so, she had a radiofrequency ablation in 2016 for this, she is on metoprolol 50 mg twice daily and flecainide daily, no medication changes recently, and she has had no tachycardia, dyspnea with exertion, chest discomfort, syncope or presyncope or any other illness recently. She states she usually maintains a sinus rhythm, and she is usually symptomatic whenever she goes into atrial fibrillation, and this is the first time she has been told she is in A. fib and had no symptoms. Last time she knowingly had her pulse checked and it was normal was in December, 3 months ago. [facility] Medical History Arthritis Cervical cancer Essential (primary) hypertension Hyperlipidemia Knee pain Obesity Obstructive sleep apnea Osteoporosis Paroxysmal atrial fibrillation Shoulder pain Type 2 diabetes mellitus Vaginal prolapse Home Medications metformin 1,000 mg tablet 1,000 mg PO BIDCM 11/02/16 [History Last Taken Unknown] atorvastatin 10 mg tablet (Lipitor) 10 mg PO QDAY #30 tabs 06/12/19 [Rx Last Taken Unknown] sertraline 50 mg tablet 50 mg PO DAILY 08/21/20 [History Last Taken Unknown] ascorbic acid (vitamin C) 500 mg tablet 500 mg PO DAILY 08/20/21 [History Last Taken Unknown] calcium carbonate 600 mg-vitamin D3 5 mcg (200 unit) capsule (Calcium 600 + D(3)) 1 cap PO DAILY 08/20/21 [History Last Taken Unknown] multivitamin 1 tab PO DAILY 08/20/21 [History Last Taken Unknown] flecainide 100 mg tablet See Rx Instructions .Route .COMPLEX #60 tabs 09/29/21 [Rx Last Taken Unknown] rivaroxaban 20 mg tablet (Xarelto) See Rx Instructions .Route .COMPLEX #90 tabs 11/02/21 [Rx Last Taken Unknown] cholecalciferol (vitamin D3) 25 mcg (1,000 unit) capsule 25 mcg PO DAILY 12/09/21 [History Last Taken Unknown] metoprolol tartrate 50 mg tablet 50 mg PO BID #180 tabs 12/09/21 [Rx Last Taken Unknown] Allergy/AdvReac Type Severity Reaction Status Date / Time bacitracin AdvReac Mild yeast Verified 04/16/22 16:06 [From Neosporin infection ([id number])] cephalexin AdvReac Mild yeast Verified 04/16/22 16:06 infection neomycin AdvReac Mild yeast Verified 04/16/22 16:06 infection polymyxin B AdvReac Mild yeast Verified 04/16/22 16:06 [From Neosporin infection ([id number])] Family History Father Diabetes Heart disease Mother Breast cancer CVA (cerebral vascular accident) Kidney disease Surgical History H/O bilateral salpingo-oophorectomy H/O meniscectomy of right knee History of appendectomy History of cardioversion History of cholecystectomy History of radiofrequency ablation procedure for cardiac arrhythmia (02/01/17) Hx of hysterectomy Social History Smoking Status: Former smoker how long ago did patient quit smokin + years ago alcohol intake: current alcohol intake frequency: a few times a month substance use type: does not use caffeine: Yes (Occasionally) ROS ROS ED Constitutional Constitutional ED: Denies chills or fever(s) Eyes Eyes: Denies change in vision or diplopia ENT ENT ED: Denies rhinorrhea or sore throat Cardiovascular Cardiovascular: Denies chest pain, leg edema, orthopnea, palpitations or syncope Respiratory/Chest Respiratory/Chest: Denies cough, dyspnea, dyspnea on exertion or orthopnea Gastrointestinal Gastrointestinal: Denies abdominal pain, diarrhea, nausea or vomiting Genitourinary Genitourinary ED: Denies dysuria or hematuria Musculoskeletal Musculoskeletal: Denies back pain or neck pain Integumentary Denies abscess or rash Neurologic Neurologic: Denies headache(s), paresthesias or weakness Psychiatric Psychiatric: Denies anxiety or suicidal thoughts EXAM Physical Exam Const Vital Signs: 04/16/22 16:06 04/16/22 16:50 04/16/22 17:47 Temperature 98.2 F Temperature Source Temporal Pulse Rate 152 H 151 H Pulse Rate [1 (Initial Baseline)] Respiratory Rate 14 20 H Respiratory Rate [1 (Initial Baseline)] Respiratory Effort Normal Blood Pressure 156/110 H 117/88 H Blood Pressure [1 (Initial Baseline)] Blood Pressure Mean 125 Pulse Ox 97 98 Oxygen Delivery Method Room Air Room Air Oxygen Delivery Method [1 (Initial Baseline)] 04/16/22 18:17 04/16/22 18:20 04/16/22 18:26 Temperature Temperature Source Pulse Rate Pulse Rate [1 (Initial Baseline)] 150 H Respiratory Rate Respiratory Rate [1 (Initial Baseline)] 20 H Respiratory Effort Blood Pressure Blood Pressure [1 (Initial Baseline)] 117/88 H Blood Pressure Mean Pulse Ox Oxygen Delivery Method Room Air Room Air Oxygen Delivery Method [1 (Initial Baseline)] Room Air 04/16/22 18:31 Temperature Temperature Source Pulse Rate Pulse Rate [1 (Initial Baseline)] Respiratory Rate Respiratory Rate [1 (Initial Baseline)] Respiratory Effort Blood Pressure Blood Pressure [1 (Initial Baseline)] Blood Pressure Mean Pulse Ox Oxygen Delivery Method Room Air Oxygen Delivery Method [1 (Initial Baseline)] Positive well nourished and well developed General Appearance ED: well developed and NAD HEENT Reports moist mucous membranes normocephalic and atraumatic Eyes PERRL and EOMs intact bilaterally Neck full ROM, supple and no JVD Resp normal respiratory effort and clear to auscultation bilaterally Cardio regular rate, regular rhythm and no murmurs Rate: tachycardic GI non-tender and non-distended Auscultation: normoactive bowel sounds Palpation: soft Back/Spine no CVA tenderness General Back: other FROM Extremity normal to inspection General Extremety ED: Negative for edema, pulses abnormal or tenderness General Extremity: Negative for edema or pulses abnormal Neuro oriented x3, CN's II-XII intact bilaterally and no sensory deficits noted Sensorium / Orientation: awake and alert Motor Exam: strength 5/5 throughout Skin no rashes or lesions noted and no wounds MDM MDM MDM Narrative Medical decision making narrative: Discussed with Dr. Martínez, he agreed with cardioverting the patient here and is successful discharging her home to continue her medications and follow-up. With informed consent, procedural sedation was performed and the patient was successfully cardioverted see the procedure note. She recovered uneventfully and was discharged home after being observed to ensure no recurrence. Lab Data Attestation: I reviewed the patient's lab results. Labs: Laboratory Results - last 24 hr 04/16/22 04/16/22 16:40 16:40 WBC 7.9 RBC 5.05 Hgb 13.6 Hct 43.2 MCV 85.5 MCH 26.9 L MCHC 31.5 L RDW Std Deviation 43.1 RDW Coeff of Chalo 14.0 Plt Count 303 MPV 10.5 Immature Gran % (Auto) 0.100 Neut % (Auto) 57.3 Lymph % (Auto) 30.7 Harris % (Auto) 9.5 Eos % (Auto) 1.5 Baso % (Auto) 0.9 Absolute Neuts (auto) 4.5 Absolute Lymphs (auto) 2.43 Nucleated RBC % 0 Sodium 141 Potassium 4.5 Chloride 107 Carbon Dioxide 28.0 Anion Gap 6 BUN 8 Creatinine 0.76 Estim Creat Clear Calc 51.11 Est GFR (MDRD) Af Amer 97 Est GFR (MDRD) Non-Af 80 BUN/Creatinine Ratio 10.5 Glucose 94 Calcium 9.5 Rhythm Strip Rhythm Strip: aflutter Rate: 150 Ectopy: None EKG Initial EKG: Attestation: I personally reviewed and interpreted this EKG as follows: Interpretation: No Acute Injury Pattern and Atrial Flutter Prior EKG tracings: available for review Prior: Changed Follow-up EKG: Attestation: I personally reviewed and interpreted this EKG as follows: Interpretation: Sinus Rhythm and No Acute Injury Pattern Comments: Post cardioversion. Normal. Procedures Procedural Sedation 1 (Initial Baseline): Consent Signed: Yes Any Problems With Anesthesia: No You/Your family experience fever (hyperthermia) w/anesthesia: No Sedation medication: Etomidate Dose: 10 Route: IV Total Moderate Sedation Units: 8 Mallampati Score: Class III ASA Classification: II Comment:: Patient on monitor with end-tidal CO2 monitoring, 2 L nasal cannula, and IV fluids going prior to the onset of the procedure. Recovered uneventfully, tolerated well no complications. Other Procedures Procedure(s): Synchronized electrocardioversion: Initially synchronized cardioversion with anterior/posterior pads on the patient after informed consent and under sedation also pretreated with fentanyl 50 mcg; 20 J biphasic unsuccessful appeared to put the patient in atrial fibrillation, followed by 50 J biphasic unsuccessful, followed by 200 J biphasic, successfully converted repeat EKG shows cardioversion to sinus rhythm with no acute injury pattern. Otherwise no complications and tolerated well. Critical Care Time Critical Care Time: Yes Critical care time (excluding procedures): 30-74 minutes (35 min, not including procedures), Including time spent:, Discussing w/Patient &/or Family/Rigger Chief, Discussing w/Consultants and Performing Direct Patient Care at Bedside Discharge Plan Triage Chief Complaint: Palpitations ED Provider: Minesh Cruz Dx/Rx/DC Orders Clinical Impression: Atrial flutter with rapid ventricular response, Anticoagulated Instructions: ED Atrial Flutter Prescriptions: No Action calcium carbonate-vitamin D3 600 mg calcium-200 unit capsule 600 mg-5 mcg (200 unit) capsule 1 cap PO DAILY atorvastatin [Lipitor] 10 mg tablet 10 mg PO QDAY Qty: 30 11RF sertraline 50 mg tablet 50 mg PO DAILY Label Comments: TAKE 1 TABLET BY MOUTH EVERY DAY ascorbic acid (vitamin C) 500 mg tablet 500 mg PO DAILY multivitamin Tablet 1 tab PO DAILY cholecalciferol (vitamin D3) 25 mcg (1,000 unit) capsule 25 mcg PO DAILY metoprolol tartrate 50 mg tablet 50 mg PO BID Qty: 180 3RF metformin 1,000 MG tablet 1,000 mg PO BIDCM flecainide 100 mg tablet See Rx Instructions .ROUTE .COMPLEX Qty: 60 11RF Dose Instruction: TAKE 1 TABLET BY MOUTH EVERY 12 HOURS Rx Instructions: TAKE 1 TABLET BY MOUTH EVERY 12 HOURS Xarelto 20 mg tablet See Rx Instructions .ROUTE .COMPLEX Qty: 90 3RF Dose Instruction: TAKE 1 TABLET BY MOUTH EVERY DAY Rx Instructions: TAKE 1 TABLET BY MOUTH EVERY DAY Primary Care Provider: Lucio Romero Referrals: Mukesh Garcia MD [Med Staff - Active Staff] - 3-5 Days (or colleague if he is out) Lucio Romero MD [Primary Care Provider] - Disposition Disposition: Home, Self Care
[2022-04-16 17:00] LABS: Absolute Lymphocyte Count 2.43 X10^3/uL (0.83-4.51); Absolute Neutrophil Count 4.5 X10^3/uL (2.0-7.7); Anion Gap 6 (5-15); BUN 8 mg/dL (7-18); BUN/Creat Ratio 10.5 RATIO (10-20); Basophil# 0.07 X10^3/uL; Basophil% 0.9 % (0-1); Calcium,Total 9.5 mg/dL (8.5-10.1); Chloride 107 mmol/L (98-107); Creatinine, Serum 0.76 mg/dL (0.55-1.02); EST Glomerular Filtration Rate 80 mL/min (>60); Eosinophil# 0.12 X10^3/uL; Eosinophils% 1.5 % (0-5); Est Glom Filt Rate - Afr Amer 97 mL/min (>60); Estimated Creatinine Clearance 51.11 ml/min; Glucose 94 mg/dL (74-106); Hematocrit 43.2 % (37-47); Hemoglobin 13.6 g/dL (12.0-15.0); Lymphocyte # 2.43 X10^3/ul (0.83-4.51); Lymphocyte % 30.7 % (19-41); Mean Corp Hgb Conc 31.5 g/dL (32-36); Mean Corpuscular Hgb 26.9 pg (27.0-32.0); Mean Corpuscular Volume 85.5 fL (81-99); Mean Platelet Vol. 10.5 fl (6.2-12.0); Monocyte# 0.75 X10^3/uL; Monocyte% 9.5 % (0-10); NRBC Flagged by Analyzer 0 % (0-5); Neutrophil # 4.54 X10^3/uL (2.7-7.7); Neutrophil % 57.3 % (47-70); Platelet Count 303 K/mm3 (150-450); Potassium 4.5 mmol/L (3.5-5.1); RBC Distribution Width SD 43.1 fl (35.1-43.9); Red Blood Count 5.05 M/mm3 (4.2-5.4); Sodium Level 141 mmol/L (136-145); White Blood Count 7.9 K/mm3 (4.4-11.0)
[2022-04-16] MEDS: Etomidate 20 MG/10 ML Vial 10 MG IV (18:16)
[2022-04-16] MEDS: fentaNYL 100 MCG/2 ML Ampul 50 MCG IV (18:16)
--- NOTE | 2022-04-16 18:20 | EKG12_ITS ---
Test Reason : CARDIOVERSION Blood Pressure : / mmHG Vent. Rate : 090 BPM Atrial Rate : 090 BPM P-R Int : 172 ms QRS Dur : 082 ms QT Int : 366 ms P-R-T Axes : 051 003 039 degrees QTc Int : 447 ms Normal sinus rhythm Normal ECG Confirmed by ELBERT FLETCHER, ZACHARY ([id number]), multimedia editor IVETTE WHITT ([id number]) on 04/19/2022 9:55:53 A M Referred By: BRENTON Confirmed By:YOUNG BOSWELL MD
--- NOTE | 2022-04-16 18:30 | ED.RN ---
pt does not know. cant find her list of meds
== END 2022-04-16 19:25 | disposition home or self-care (01) ==
PROVIDERS: Emergency Provider Emergency Medicine; PCP Family Medicine; Visit Provider Emergency Medicine
DX: I48.92 Unspecified atrial flutter (principal); I48.0 Paroxysmal atrial fibrillation; E11.9 Type 2 diabetes mellitus without complications; I10 Essential (primary) hypertension; E78.5 Hyperlipidemia, unspecified; M19.90 Unspecified osteoarthritis, unspecified site; M81.0 Age-related osteoporosis without current pathological fracture; G47.33 Obstructive sleep apnea (adult) (pediatric); E66.9 Obesity, unspecified; Z79.84 Long term (current) use of oral hypoglycemic drugs; Z79.01 Long term (current) use of 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; Z79.899 Other long term (current) drug therapy; Z87.891 Personal history of nicotine dependence
CPT/HCPCS: 80048; 85025; 92960; 93005; 96374; 96375; 99285; J7030; A4216

== ENCOUNTER → 2022-05-25 | Outpatient (CLI) | payer MEDICARE, SELFPAY ==
--- NOTE | 2022-05-25 13:07 | BI_ITS ---
MAMMOGRAPHY - BILATERAL SCREENING REASON FOR EXAM: Female, 66 years old. Routine annual screening examination. PERTINENT HISTORY: Mother with breast cancer. Left excisional breast biopsy in 2013. TECHNIQUE: Digital bilateral breast addison (3D mammographic acquisition) in the CC and MLO projections. 2-D mediolateral oblique (MLO) and craniocaudad (CC) views of both breasts were obtained. CAD: Full Field Digital Mammography with Computer Added Detection was performed. COMPARISON: Mammogram from 02/14/2020, 01/08/2019. Right breast diagnostic ultrasound from 01/11/2019. FINDINGS: Breast Composition: There are scattered areas of fibroglandular density. There are no dominant masses or suspicious calcifications. Stable benign-appearing well-circumscribed nodules in the bilateral upper outer breasts. Stable benign-appearing small bilateral axillary lymph nodes. No other significant abnormalities are identified. There has been no significant change since the prior study. BI/SCRN MAMM (CAD)W/ADDISON BILAT IMPRESSION: Stable bilateral screening mammogram. Yearly follow-up mammogram recommended. (A) ASSESSMENT CATEGORY: BIRADS Category 2: Benign. A letter regarding these results will be sent to the patient by the facility within 30 days. Approximately 10% of breast cancers are not detected by mammography. A normal mammogram should not delay biopsy of a clinically suspicious abnormality. Electronically Signed: Farhan Alvarado, at 9:08 EST ,
== END | disposition home or self-care (01) ==
LOC: OPBI 13:05
PROVIDERS: PCP Family Medicine; Referring Provider Family Medicine; Visit Provider Family Medicine
DX: Z12.31 Encounter for screening mammogram for malignant neoplasm of breast (principal); Z80.3 Family history of malignant neoplasm of breast
CPT/HCPCS: 77063; 77067

== ENCOUNTER → 2022-07-01 | Outpatient (CLI) | payer MEDICARE, SELFPAY ==
--- NOTE | 2022-07-01 12:53 | ECHOD_ITS ---
Reason For Study: Paroxsymal Atrial Fibrillation Procedure This was a 2D Doppler, Color Flow transthoracic echocardiogram. The study was technically difficult. Due to body habitus. Exam performed in department. Images are best in supine position. Left Ventricle Normal LV size. Left ventricular systolic function is normal. The estimated ejection fraction is 65 %. No regional wall motion abnormalities noted. Right Ventricle Normal RV size. Normal systolic function. Atria Normal left atrium. Normal right atrium. Mitral Valve Normal mitral valve. Tricuspid Valve Normal tricuspid valve. Mild tricuspid valve insufficiency. Aortic Valve Normal aortic valve. Trisinus/trileaflet aortic valve. Pulmonic Valve Normal pulmonic valve. Great Vessels Normal aortic root. The pulmonary artery is normal size. Normal inferior vena cava. Pericardium/Pleural No pericardial effusion. MMode/2D Measurements & Calculations LVIDd: 5.4 cm IVSd: 1.0 cm Ao root diam: 3.6 cm LVIDs: 3.3 cm LVPWd: 1.1 cm RVDd: 4.4 cm FS: 38.8 % LAV(MOD-bp): 94.4 ml LVAd ap4: 27.0 cm2 LVAd ap2: 23.1 cm2 LAV(MOD-bp) Indexed: 41.0 ml/m2 LVLd ap4: 7.5 cm LVLd ap2: 7.3 cm LAV(MOD-sp2): 91.7 ml EDV(MOD-sp4): 81.9 ml EDV(MOD-sp2): 63.6 ml LAV(MOD-sp4): 91.4 ml EDV(sp4-el): 82.4 ml EDV(sp2-el): 61.9 ml LVAs ap4: 14.9 cm2 LVAs ap2: 12.8 cm2 LVLs ap4: 6.5 cm LVLs ap2: 6.2 cm ESV(MOD-sp4): 32.3 ml ESV(MOD-sp2): 24.2 ml ESV(sp4-el): 29.1 ml ESV(sp2-el): 22.5 ml EF(MOD-sp4): 60.6 % EF(MOD-sp2): 62.0 % EF(sp4-el): 64.6 % SV(MOD-sp4): 49.6 ml SV(MOD-sp2): 39.4 ml SV(sp4-el): 53.2 ml LA dimension(2D): 5.4 cm LA A4 area: 25.6 cm2 RA A4 area: 23.5 cm2 Time Measurements MV dec time: 0.31 sec Doppler Measurements & Calculations MV E max raymundo: 72.8 cm/sec Lat Peak E' Raymundo: 11.5 cm/sec Med Peak E' Raymundo: 8.9 cm/sec MV A max raymundo: 41.3 cm/sec E/E' lat: 6.3 E/E' med: 8.2 MV E/A: 1.8 Ao V2 max: 121.8 cm/sec LV V1 max: 100.3 cm/sec PA V2 max: 89.4 cm/sec Ao max P.9 mmHg LV V1 max P.0 mmHg Ao V2 mean: 89.2 cm/sec LV V1 mean P.2 mmHg Ao mean P.5 mmHg LV V1 mean: 70.3 cm/sec Ao V2 VTI: 30.2 cm LV V1 VTI: 25.9 cm AV (velocity ratio): 0.86 TR max raymundo: 222.8 cm/sec TR max P.9 mmHg ECHO/Echo Complete Interpretation Summary Normal LV size. Left ventricular systolic function is normal. The estimated ejection fraction is 65 %. The study was technically limited. The study was technically difficult. Ordering Physician: Mukesh Garcia Referring Physician: Lucio Romero Performed By: Altagracia Portillo, ALEXYS, RVT
[2022-07-01 17:50] LABS: Absolute Lymphocyte Count 1.71 X10^3/uL (0.83-4.51); Absolute Neutrophil Count 4.8 X10^3/uL (2.0-7.7); Basophil# 0.06 X10^3/uL; Basophil% 0.8 % (0-1); Eosinophil# 0.19 X10^3/uL; Eosinophils% 2.6 % (0-5); Hematocrit 39.1 % (37-47); Hemoglobin 12.3 g/dL (12.0-15.0); Lymphocyte # 1.71 X10^3/ul (0.83-4.51); Lymphocyte % 23.2 % (19-41); Mean Corp Hgb Conc 31.5 g/dL (32-36); Mean Corpuscular Volume 85.7 fL (81-99); Mean Platelet Vol. 10.6 fl (6.2-12.0); Monocyte# 0.57 X10^3/uL; Monocyte% 7.7 % (0-10); NRBC Flagged by Analyzer 0 % (0-5); Neutrophil # 4.81 X10^3/uL (2.7-7.7); Neutrophil % 65.4 % (47-70); Platelet Count 304 K/mm3 (150-450); RBC Distribution Width CV 14.1 % (11.6-14.6); RBC Distribution Width SD 43.8 fl (35.1-43.9); Red Blood Count 4.56 M/mm3 (4.2-5.4); White Blood Count 7.4 K/mm3 (4.4-11.0)
[2022-07-01 18:27] LABS: ALB/GLOB Ratio 0.9 RATIO (0.9-2.4); AST(SGOT) 10 U/L (15-37); Alanine Aminotransfer ALT/SGPT 25 U/L (13-56); Albumin, Serum 3.4 g/dL (3.2-5.0); Alkaline Phosphatase 86 U/L (45-117); Anion Gap 8 (5-15); BUN 10 mg/dL (7-18); BUN/Creat Ratio 15.6 RATIO (10-20); Calcium,Total 9.1 mg/dL (8.5-10.1); Chloride 104 mmol/L (98-107); Cholesterol 146 mg/dL (200); Creatinine, Serum 0.64 mg/dL (0.55-1.02); EST Glomerular Filtration Rate 98 mL/min (>60); Est Glom Filt Rate - Afr Amer 119 mL/min (>60); Globulin 3.6 g/dL (2.2-4.2); Glucose 98 mg/dL (74-106); High Density Lipoprotein 66 mg/dL; Magnesium 1.6 mg/dL (1.6-2.6); Sodium Level 140 mmol/L (136-145); Thyroid Stim Hormone (TSH) 2.69 uIU/mL (0.358-3.74); Triglycerides 109 mg/dL; Very Low Density Lipoprotein 22 mg/dL (5-40)
[2022-07-01 18:51] LABS: Hemoglobin A1c 5.8 % (3.8-5.6)
== END | disposition home or self-care (01) ==
PROVIDERS: PCP Family Medicine; Referring Provider Internal Medicine Cardiovascular Disease; Visit Provider Internal Medicine Cardiovascular Disease
DX: E11.9 Type 2 diabetes mellitus without complications (principal); I48.0 Paroxysmal atrial fibrillation
CPT/HCPCS: 36415; 80053; 80061; 83036; 83735; 84443; 85025; 93306

== ENCOUNTER → 2022-08-12 | Outpatient (CLI) | payer MEDICARE, SELFPAY ==
[2022-08-12 16:47] LABS: Anion Gap 6 (5-15); BUN 15 mg/dL (7-18); BUN/Creat Ratio 19.4 RATIO (10-20); Calcium,Total 9.8 mg/dL (8.5-10.1); Chloride 104 mmol/L (98-107); Creatinine, Serum 0.78 mg/dL (0.55-1.02); EST Glomerular Filtration Rate 79 mL/min (>60); Est Glom Filt Rate - Afr Amer 95 mL/min (>60); Glucose 106 mg/dL (74-106); Potassium 4.5 mmol/L (3.5-5.1); Sodium Level 140 mmol/L (136-145)
== END | disposition home or self-care (01) ==
LOC: LAB 13:34
PROVIDERS: PCP Family Medicine; Visit Provider Internal Medicine Cardiovascular Disease
DX: I48.0 Paroxysmal atrial fibrillation (principal); E87.1 Hypo-osmolality and hyponatremia
CPT/HCPCS: 36415; 80048

== ENCOUNTER → 2022-11-22 | Outpatient (CLI) | payer MEDICARE, SELFPAY ==
[2022-11-22 12:21] LABS: Absolute Lymphocyte Count 2.07 X10^3/uL (0.83-4.51); Absolute Neutrophil Count 2.9 X10^3/uL (2.0-7.7); Basophil# 0.07 X10^3/uL; Basophil% 1.2 % (0-1); Eosinophil# 0.15 X10^3/uL; Eosinophils% 2.6 % (0-5); Hematocrit 39.6 % (37-47); Hemoglobin 12.5 g/dL (12.0-15.0); Lymphocyte # 2.07 X10^3/ul (0.83-4.51); Lymphocyte % 36.4 % (19-41); Mean Corp Hgb Conc 31.6 g/dL (32-36); Mean Corpuscular Hgb 27.1 pg (27.0-32.0); Mean Corpuscular Volume 85.9 fL (81-99); Mean Platelet Vol. 10.1 fl (6.2-12.0); Monocyte# 0.49 X10^3/uL; Monocyte% 8.6 % (0-10); NRBC Flagged by Analyzer 0 % (0-5); Neutrophil # 2.88 X10^3/uL (2.7-7.7); Neutrophil % 50.8 % (47-70); Platelet Count 294 K/mm3 (150-450); RBC Distribution Width CV 13.3 % (11.6-14.6); RBC Distribution Width SD 41.6 fl (35.1-43.9); Red Blood Count 4.61 M/mm3 (4.2-5.4); White Blood Count 5.7 K/mm3 (4.4-11.0)
[2022-11-22 13:00] LABS: Vitamin D,25 Hydroxy 61.3 ng/mL
[2022-11-22 13:07] LABS: ALB/GLOB Ratio 0.8 RATIO (0.9-2.4); AST(SGOT) 18 U/L (15-37); Alanine Aminotransfer ALT/SGPT 20 U/L (13-56); Albumin, Serum 3.3 g/dL (3.2-5.0); Alkaline Phosphatase 79 U/L (45-117); Anion Gap 5 (5-15); BUN 12 mg/dL (7-18); BUN/Creat Ratio 18.1 RATIO (10-20); Calcium,Total 9.4 mg/dL (8.5-10.1); Chloride 105 mmol/L (98-107); Cholesterol 132 mg/dL (200); Creatinine, Serum 0.66 mg/dL (0.55-1.02); EST Glomerular Filtration Rate 94 mL/min (>60); Est Glom Filt Rate - Afr Amer 114 mL/min (>60); Globulin 4.3 g/dL (2.2-4.2); Glucose 122 mg/dL (74-106); High Density Lipoprotein 63 mg/dL; Magnesium 1.9 mg/dL (1.6-2.6); Potassium 4.2 mmol/L (3.5-5.1); Protein, Total 7.6 g/dL (6.4-8.2); Sodium Level 140 mmol/L (136-145); Thyroid Stim Hormone (TSH) 2.48 uIU/mL (0.358-3.74); Triglycerides 104 mg/dL; Very Low Density Lipoprotein 21 mg/dL (5-40)
[2022-11-22 16:31] LABS: Microalbumin,Random Urine 9.4 mg/L (NO RANGE EST.); Microalbumin:Creatinine Ratio 7.5 mg/g CRE (<30 mg/g CRE)
== END | disposition home or self-care (01) ==
LOC: MFPLAB 11:15
PROVIDERS: PCP Family Medicine; Visit Provider Family Medicine
DX: I48.91 Unspecified atrial fibrillation (principal); E11.9 Type 2 diabetes mellitus without complications; E55.9 Vitamin D deficiency, unspecified
CPT/HCPCS: 36415; 80053; 80061; 82043; 82306; 82570; 83036; 83735; 84443; 85025

== ENCOUNTER → 2022-12-09 | Outpatient (CLI) | payer MEDICARE, SELFPAY ==
--- NOTE | 2022-12-09 15:07 | BD_ITS ---
STUDY: DUAL ENERGY X-RAY ABSORPTIOMETRY / DXA REASON FOR EXAM: Female, 67 years old. 733.90OsteopeniaBONE DENSITY REASON FOR EXAM TECHNIQUE: Bone Mineral Density (BMD) measurements of lumbar spine and bilateral hips were obtained. COMPARISON: Comparison is made with prior study February 14, 2020. FINDINGS: Lumbar Spine (L1-L4): g/cm2 (1.045) / T-score (0.2) / Z-score (2.2) Findings are suggestive of normal bone density with a low fracture risk. Left Femur Total: g/cm2 (0.954) / T-score (0.1) / Z-score (1.5) Left Femoral Neck: g/cm2 (0.691) / T-score (-1.4) / Z-score (0.3) Right Femur Total: g/cm2 (0.926) / T-score (-0.1) / Z-score (1.3) Right Femoral Neck: g/cm2 (0.713) / T-score (-1.2) / Z-score (0.5) The T-Scores on the most recent prior examination were: Lumbar Spine (L1-L4): There has been improvement of bone density since the previous examination. Left Femur Total: which represents an improvement of 1.1%. Right Femur Total: which represents an improvement of 13.9%. BD/Dexa Bone Density Study IMPRESSION: The patient is considered osteopenic as outlined below according to World Isaac Organization (WHO) criteria with a low fracture risk. There has been improvement of bone density since the previous examination. Reference Information: The T-score is the number of standard deviations above or below the standard which is normal for young adults at their peak bone mineral density. The World Health Organization (WHO) interprets the T-scores as follows: Above -1 Normal bone density Between -1 and -2.5 Osteopenia Equal to / or below -2.5 Osteoporosis As a practical clinical guideline, osteopenia may be graded as follows: Mild -1 through -1.5 Moderate -1.6 through -2.0 Severe -2.1 through -2.4 The Z-score is the number of standard deviations above or below age-matched controls. A Z-score of less than -1.5 would be considered abnormal. References: 1. NIH Osteoporosis and Related Bone Diseases www osteo.org 2. International Society for Clinical Densitometry www iscd.org 3. National Osteoporosis Foundation www nof.org Electronically Signed: Damon Merrill MD at 13:25 EDT ,
== END | disposition home or self-care (01) ==
LOC: OPBD 15:00
PROVIDERS: PCP Family Medicine; Referring Provider Family Medicine; Visit Provider Family Medicine
DX: M85.89 Other specified disorders of bone density and structure, multiple sites (principal)
CPT/HCPCS: 77080

== ENCOUNTER 2022-12-20 13:00 | Outpatient (RCR) | payer MEDICARE, SELFPAY ==
--- NOTE | 2022-11-15 14:30 | HP.PTEVAL_ITS ---
Patient's Visit Information PANKAJ NIXON is a 67 year old F referred to Physical Therapy by Dr. Gerardo Adkins MD with a diagnosis of OA of B knees. Date of Evaluation: 11/15/22 Physical Therapist: YVONNE Pierce - Visit Plan Frequency: 2x /Week Duration: 6 Weeks Plan: 2X/ week for 6 weeks for B hip and knee ROM and strengthening, core strength, gait training, stair negotiation, with HEP - Subjective Pt reports that both knees are bad but they are concentrating on the R knee. Both knees are bone on bone. They are thinking about a knee replacement. She has to lose 10# and also doing water therapy and then they will talk about getting that done. She has done water therapy before. She use the cane all the time when out in public but uses the cane when she is out. She has stairs from the kitchen to the garage and she has 4 steps and there is a handle and she pulls up on that. She has to go down the steps BW with the safety bar. She struggles to get up out of a chair. She has night pain. She is take 2 extra strength tylenol 3 X/ day and that seems to help some. - Pain R knee pain Pain Intensity (Out of 10): 6 L knee pain Pain Intensity (Out of 10): 5 - Objective Gait: Walks with a straight cane and decreased step length and decrease stance time on the R LE. LE MMT: R hip flex 8.4 and L hip flex 8.2. R knee ext 27.8 and L knee ext 25.8. R knee flex 11.6 and L 11.5. Supine in hooklying hip abd R 12.8 and L 15.9. Bridge able to get up about 1/2 normal ROM. R knee AROM: 110 and -5 degrees from full extension. L knee AROM 112 and -5 degrees from full extension - Balance/Special Test Scores Lower Extremity Functional Score: 23 - Goals Goal 1:: I HEP Goal Time Frame: 6-8 Weeks Goal 2:: Be able to walk with increase stride and less pain with her straight c ane Goal Time Frame: 6-8 Weeks Goal 3:: Increase LE strength (at the eval LE strength was LE MMT: R hip flex 8.4 and L hip flex 8.2. R knee ext 27.8 and L knee ext 25.8. R knee flex 11.6 and L 11.5. Supine in hooklying hip abd R 12.8 and L 15.9) Goal Time Frame: 6-8 Weeks - Rehabilitation Potential Rehabilitation Potential: Good - Anticipated Interventions Patient/Client Instruction: Educate patient on: Condition, Plan of Care For the Purpose of:: To decrease pain, To decrease swelling/inflammation, To increase ROM, To improve nutrient delivery to tissue, To improve muscle performance and motor function, To improve ability to perform ADL's, To increase tolerance to activity/condition/position, To improve performance and independence with ADL's, To decrease level of supervision to perform tasks, To improve ability of physical actions for home/community/work/leisure, To improve gait and locomotor functions, To improve health of tissue, To decrease soft tissue restriction, To increase flexibility/ROM, To improve endurance, To improve balance, To improve safety with gait Therapeutic Exercise to Include: Strength training, Balance training, Flexibilty training, Gait and locomotor training, Passive ROM, Active ROM, Dynamic Lumbar Stabilization For the Purpose of:: To decrease pain, To increase ROM, To improve nutrient delivery to tissue, To improve muscle performance and motor function, To improve ability to perform ADL's, To increase tolerance to activity/condition/position, To improve performance and independence with ADL's, To decrease level of supervision to perform tasks, To improve ability of physical actions for home/community/work/leisure, To improve gait and locomotor functions, To improve health of tissue, To decrease soft tissue restriction, To increase flexibility/ROM, To improve balance Functional Training to Include: Gait training For the Purpose of:: To improve gait and locomotor functions, To improve safety with gait Thank you for the opportunity to evaluate your patient. For Medicare and Medicare HMO plans, please review the plan of care and approve it. It will need to be FAXED BACK to us at [phone] for Medicare purposes. For Medicare only, by signing this I certify the plan of care. Please let me know if there are questions or concerns regarding this plan of care. Physician Signature: Date:
--- NOTE | 2022-12-20 15:12 | HP.PTDCSUM ---
It has been my pleasure to treat PANKAJ NIXON referred by Dr. Gerardo Adkins MD, with the diagnosis of OA of B knees for a total of 8 visit(s). Discharge Date: 12/20/22 Please see the following information for a summary of their discharge status. Subjective: Pt is loving the water but has not had time to call on her own. Her knees are not feeling any better. She thinks that the water is good for her for her legs and health not just her knees. R knee pain Pain Intensity (Out of 10): 5 L knee pain Pain Intensity (Out of 10): 3 Objective/Function: LE MMT: R hip flex 11.1 and L hip flex 11. R knee ext 27.8 and L knee ext 25.8. R knee flex 11.9 and L 11.5. Supine in hooklying hip abd R 17.2 and L 20.6 Goal 1:: I HEP Goal Progress: Goal Met Goal 2:: Be able to walk with increase stride and less pain with her straight cane Goal Progress: Not Progressing Goal 3:: Increase LE strength (at the eval LE strength was LE MMT: R hip flex 8.4 and L hip flex 8.2. R knee ext 27.8 and L knee ext 25.8. R knee flex 11.6 and L 11.5. Supine in hooklying hip abd R 12.8 and L 15.9) Goal Progress: Goal Met Plan: 2X/ week for 6 weeks for B hip and knee ROM and strengthening, core strength, gait training, stair negotiation, with HEP. Gait: Pt still walks with shorter stride with her straight cane Discharge Comments: DC PT to HEP If there are questions or concerns regarding this patient's physical therapy, please feel free to call me at [phone]. Thank you for the referral of this patient. Sincerely, Joi Hood, MPT Balance/Gait/Functional tests - Balance/Special Test Scores Lower Extremity Functional Score: 40
== END 2022-12-20 19:00 | disposition home or self-care (01) ==
LOC: PT 13:00
PROVIDERS: PCP Family Medicine; Referring Provider Specialist; Visit Provider Specialist
DX: M17.0 Bilateral primary osteoarthritis of knee (principal); Z71.3 Dietary counseling and surveillance
CPT/HCPCS: 97113; 97161; 97530

== ENCOUNTER → 2023-04-14 | Outpatient (CLI) | payer MEDICARE, SELFPAY ==
[2023-04-14 15:26] LABS: Absolute Lymphocyte Count 2.09 X10^3/uL (0.83-4.51); Basophil# 0.06 X10^3/uL; Eosinophil# 0.18 X10^3/uL; Eosinophils% 3.1 % (0-5); Hematocrit 41.1 % (37-47); Hemoglobin 12.7 g/dL (12.0-15.0); Lymphocyte # 2.09 X10^3/ul (0.83-4.51); Lymphocyte % 35.5 % (19-41); Mean Corp Hgb Conc 30.9 g/dL (32-36); Mean Corpuscular Hgb 27.1 pg (27.0-32.0); Mean Corpuscular Volume 87.8 fL (81-99); Mean Platelet Vol. 10.2 fl (6.2-12.0); Monocyte# 0.51 X10^3/uL; Monocyte% 8.7 % (0-10); NRBC Flagged by Analyzer 0 % (0-5); Neutrophil # 2.97 X10^3/uL (2.7-7.7); Neutrophil % 50.5 % (47-70); Platelet Count 334 K/mm3 (150-450); RBC Distribution Width CV 13.1 % (11.6-14.6); RBC Distribution Width SD 41.9 fl (35.1-43.9); Red Blood Count 4.68 M/mm3 (4.2-5.4); White Blood Count 5.9 K/mm3 (4.4-11.0)
[2023-04-14 16:01] LABS: Vitamin D,25 Hydroxy 38.5 ng/mL
[2023-04-14 16:05] LABS: ALB/GLOB Ratio 0.8 RATIO (0.9-2.4); AST(SGOT) 11 U/L (15-37); Alanine Aminotransfer ALT/SGPT 24 U/L (13-56); Albumin, Serum 3.5 g/dL (3.2-5.0); Alkaline Phosphatase 104 U/L (45-117); Anion Gap 4 (5-15); BUN 13 mg/dL (7-18); BUN/Creat Ratio 21.3 RATIO (10-20); Calcium,Total 9.3 mg/dL (8.5-10.1); Chloride 105 mmol/L (98-107); Cholesterol 127 mg/dL (200); Creatinine, Serum 0.61 mg/dL (0.55-1.02); EST Glomerular Filtration Rate 104 mL/min (>60); Est Glom Filt Rate - Afr Amer 125 mL/min (>60); Globulin 4.4 g/dL (2.2-4.2); Glucose 87 mg/dL (74-106); High Density Lipoprotein 58 mg/dL; Magnesium 2.1 mg/dL (1.6-2.6); Potassium 4.2 mmol/L (3.5-5.1); Protein, Total 7.9 g/dL (6.4-8.2); Sodium Level 139 mmol/L (136-145); Thyroid Stim Hormone (TSH) 2.98 uIU/mL (0.358-3.74); Triglycerides 106 mg/dL; Very Low Density Lipoprotein 21 mg/dL (5-40)
[2023-04-14 16:10] LABS: Microalbumin,Random Urine < 5.0 mg/L (NO RANGE EST.)
[2023-04-14 16:30] LABS: Hemoglobin A1c 5.8 % (3.8-5.6)
== END | disposition home or self-care (01) ==
LOC: MFPLAB 14:03
PROVIDERS: PCP Family Medicine; Visit Provider Family Medicine
DX: E11.8 Type 2 diabetes mellitus with unspecified complications (principal); I48.91 Unspecified atrial fibrillation; E55.9 Vitamin D deficiency, unspecified
CPT/HCPCS: 36415; 80053; 80061; 82043; 82306; 82570; 83036; 83735; 84443; 85025

== ENCOUNTER → 2023-07-08 | Outpatient (CLI) | payer MEDICARE, SELFPAY ==
[2023-07-08 15:48] LABS: Vitamin B12 501 pg/mL (211-911)
[2023-07-13 20:08] LABS: VITAMIN B6 7.9 ug/L (3.4-65.2)
== END | disposition home or self-care (01) ==
LOC: MFPLAB 11:19
PROVIDERS: PCP Family Medicine; Visit Provider Family Medicine
DX: K14.0 Glossitis (principal)
CPT/HCPCS: 36415; 82607; 82746; 84207

== ENCOUNTER → 2023-10-26 | Outpatient (CLI) | payer MEDICARE, SELFPAY ==
[2023-10-26 14:34] LABS: Mucous, Urine 0 SEEN /hpf (<or=2+); Red Blood Cells-Urine 0 SEEN /hpf (0-5)
[2023-10-26 17:36] LABS: Color, Urine Yellow (Yellow); Glucose, Dipstick Normal (Normal); Ketone-Dipstick Negative (Negative); Leukocyte Esterase-Dipstick 25 /ul (Negative); Nitrite-Dipstick Negative (Negative); Occult Blood-Urine Negative /ul (Negative); Protein-Dipstick Negative (Negative); Specific Gravity, Urine 1.015 (1.002-1.030); Urine Bilirubin Dipstick Negative (Negative); Urine Clarity Clear (Clear); Urine Urobilinogen 1 mg/dl (Normal)
[2023-10-26 17:42] LABS: Absolute Lymphocyte Count 2.18 X10^3/uL (0.83-4.51); Absolute Neutrophil Count 3.2 X10^3/uL (2.0-7.7); Basophil# 0.06 X10^3/uL; Eosinophil# 0.12 X10^3/uL; Eosinophils% 1.9 % (0-5); Hematocrit 40.4 % (37-47); Hemoglobin 12.5 g/dL (12.0-15.0); Lymphocyte # 2.18 X10^3/ul (0.83-4.51); Lymphocyte % 35.3 % (19-41); Mean Corp Hgb Conc 30.9 g/dL (32-36); Mean Corpuscular Hgb 26.3 pg (27.0-32.0); Mean Corpuscular Volume 84.9 fL (81-99); Mean Platelet Vol. 10.4 fl (6.2-12.0); Monocyte# 0.61 X10^3/uL; Monocyte% 9.9 % (0-10); NRBC Flagged by Analyzer 0 % (0-5); Neutrophil % 51.7 % (47-70); Platelet Count 300 K/mm3 (150-450); RBC Distribution Width CV 13.8 % (11.6-14.6); RBC Distribution Width SD 42.6 fl (35.1-43.9); Red Blood Count 4.76 M/mm3 (4.2-5.4); White Blood Count 6.2 K/mm3 (4.4-11.0)
[2023-10-26 17:44] LABS: Bacteria 2+ /hpf (None Seen); Squamous Epithelial Cells - UA 0-5 SEEN /hpf (5-10); White Blood Cells 0-5 SEEN /hpf (0-5)
[2023-10-26 18:01] LABS: Microalbumin,Random Urine 12.6 mg/L (NO RANGE EST.); Microalbumin:Creatinine Ratio 9.9 mg/g CRE (<30 mg/g CRE)
[2023-10-26 18:06] LABS: Vitamin D,25 Hydroxy 42.7 ng/mL
[2023-10-26 18:14] LABS: Hemoglobin A1c 6.2 % (3.8-5.6)
[2023-10-26 18:16] LABS: ALB/GLOB Ratio 0.8 RATIO (0.9-2.4); AST(SGOT) 18 U/L (15-37); Alanine Aminotransfer ALT/SGPT 19 U/L (13-56); Albumin, Serum 3.4 g/dL (3.2-5.0); Alkaline Phosphatase 99 U/L (45-117); Anion Gap 4 (5-15); BUN 13 mg/dL (7-18); BUN/Creat Ratio 19.9 RATIO (10-20); Calcium,Total 9.5 mg/dL (8.5-10.1); Chloride 106 mmol/L (98-107); Cholesterol 143 mg/dL (200); Creatinine, Serum 0.65 mg/dL (0.55-1.02); EST Glomerular Filtration Rate 95 mL/min (>60); Est Glom Filt Rate - Afr Amer 115 mL/min (>60); Globulin 4.5 g/dL (2.2-4.2); Glucose 100 mg/dL (74-106); High Density Lipoprotein 63 mg/dL; Potassium 4.2 mmol/L (3.5-5.1); Protein, Total 7.9 g/dL (6.4-8.2); Sodium Level 139 mmol/L (136-145); Triglycerides 110 mg/dL; Very Low Density Lipoprotein 22 mg/dL (5-40)
== END | disposition home or self-care (01) ==
LOC: MFPLAB 14:32
PROVIDERS: PCP Family Medicine; Visit Provider Family Medicine
DX: E11.8 Type 2 diabetes mellitus with unspecified complications (principal); I48.91 Unspecified atrial fibrillation; E55.9 Vitamin D deficiency, unspecified
CPT/HCPCS: 36415; 80053; 80061; 81001; 82043; 82306; 82570; 83036; 83735; 85025

== ENCOUNTER → 2024-01-17 | Outpatient (CLI) | payer MEDICARE, SELFPAY ==
--- NOTE | 2024-01-17 13:38 | ART_ITS ---
Reason For Study: cool lower exremities Procedure A bilateral lower extremity continuous wave Doppler with analog waveform analysis and ankle brachial indexes. Left Segmental Pressures Left brachial= 141mmHg. Left posterior tibial artery = 151mmHg. Left dorsalis pedis artery = 151mmHg. Left digit = 95 mmHg. The left dorsalis pedis waveforms are triphasic. The left posterior tibial artery waveforms are triphasic. Right Segmental Pressures Right brachial= 133mmHg. Right posterior tibial artery = 158mmHg. Right dorsalis pedis artery = 150mmHg. Right digit = 101 mmHg. The right dorsalis pedis waveforms are triphasic. The right posterior tibial artery waveforms are triphasic. Indices The right ankle brachial index by the dorsalis pedis is 1.06. The right ankle brachial index by the posterior tibial artery is 1.12. The right digital-brachial index is .72. The left ankle brachial index by the posterior tibial artery is 1.07. The left ankle brachial index by the dorsalis pedis is 1.07. The left digital-brachial index is .67. VL/Ankle Brachial Index Interpretation Summary Right RONI 1.12, normal. Doppler/PVR waveforms of the right ankle normal at rest . TBI diminished, pedal/digit disease vs spasm. Left RONI 1.07, normal. Doppler/PVR waveforms of the left ankle normal at rest. TBI diminished, pedal/digit disease vs spasm. Ordering Physician: Lucio Romero Performed By: Dennys Garner RVT
== END | disposition home or self-care (01) ==
PROVIDERS: PCP Family Medicine; Referring Provider Family Medicine; Visit Provider Family Medicine
DX: R09.89 Other specified symptoms and signs involving the circulatory and respiratory systems (principal)
CPT/HCPCS: 93922

== ENCOUNTER → 2024-04-05 | Outpatient (CLI) | payer MEDICARE, SELFPAY ==
[2024-04-05 17:07] LABS: Mucous, Urine 0 SEEN /hpf (<or=2+); Red Blood Cells-Urine 0 SEEN /hpf (0-5)
[2024-04-05 17:59] LABS: Absolute Lymphocyte Count 1.69 X10^3/uL (0.83-4.51); Absolute Neutrophil Count 3.6 X10^3/uL (2.0-7.7); Basophil# 0.06 X10^3/uL; Eosinophil# 0.19 X10^3/uL; Eosinophils% 3.1 % (0-5); Hematocrit 40.3 % (37-47); Hemoglobin 12.6 g/dL (12.0-15.0); Lymphocyte # 1.69 X10^3/ul (0.83-4.51); Lymphocyte % 27.6 % (19-41); Mean Corp Hgb Conc 31.3 g/dL (32-36); Mean Corpuscular Volume 83.1 fL (81-99); Mean Platelet Vol. 10.2 fl (6.2-12.0); Monocyte# 0.59 X10^3/uL; Monocyte% 9.6 % (0-10); NRBC Flagged by Analyzer 0 % (0-5); Neutrophil # 3.58 X10^3/uL (2.7-7.7); Neutrophil % 58.5 % (47-70); Platelet Count 270 K/mm3 (150-450); RBC Distribution Width CV 13.6 % (11.6-14.6); RBC Distribution Width SD 41.4 fl (35.1-43.9); Red Blood Count 4.85 M/mm3 (4.2-5.4); White Blood Count 6.1 K/mm3 (4.4-11.0)
[2024-04-05 18:04] LABS: Color, Urine Yellow (Yellow); Glucose, Dipstick Normal (Normal); Ketone-Dipstick Negative (Negative); Leukocyte Esterase-Dipstick 100 /ul (Negative); Nitrite-Dipstick Negative (Negative); Occult Blood-Urine 10 /ul (Negative); Protein-Dipstick 15 mg/dl (Negative); Urine Bilirubin Dipstick Negative (Negative); Urine Clarity Sl. Cloudy (Clear); Urine Urobilinogen 1 mg/dl (Normal)
[2024-04-05 18:27] LABS: Vitamin D,25 Hydroxy 54.5 ng/mL
[2024-04-05 18:30] LABS: ALB/GLOB Ratio 0.8 RATIO (0.9-2.4); AST(SGOT) 13 U/L (15-37); Alanine Aminotransfer ALT/SGPT 19 U/L (13-56); Albumin, Serum 3.4 g/dL (3.2-5.0); Alkaline Phosphatase 102 U/L (45-117); Anion Gap 4 (5-15); BUN 9 mg/dL (7-18); BUN/Creat Ratio 14.2 RATIO (10-20); Calcium,Total 9.4 mg/dL (8.5-10.1); Chloride 105 mmol/L (98-107); Cholesterol 131 mg/dL (200); Creatinine, Serum 0.63 mg/dL (0.55-1.02); EST Glomerular Filtration Rate 99 mL/min (>60); Est Glom Filt Rate - Afr Amer 119 mL/min (>60); Glucose 113 mg/dL (74-106); High Density Lipoprotein 63 mg/dL; Magnesium 1.9 mg/dL (1.6-2.6); Potassium 4.2 mmol/L (3.5-5.1); Protein, Total 7.4 g/dL (6.4-8.2); Sodium Level 139 mmol/L (136-145); Triglycerides 77 mg/dL; Very Low Density Lipoprotein 15 mg/dL (5-40)
[2024-04-05 18:32] LABS: Hemoglobin A1c 6.7 % (3.8-5.6)
[2024-04-05 18:42] LABS: Squamous Epithelial Cells - UA > 100 SEEN /hpf (5-10); Transitional Epithelial - Ur 0-5 SEEN /hpf (0-5); White Blood Cells 10-25 SEEN /hpf (0-5)
[2024-04-05 18:43] LABS: Bacteria 3+ /hpf (None Seen)
[2024-04-05 21:38] LABS: Microalbumin,Random Urine 18.1 mg/L (NO RANGE EST.); Microalbumin:Creatinine Ratio 12.5 mg/g CRE (<30 mg/g CRE)
== END | disposition home or self-care (01) ==
LOC: MFPLAB 16:59
PROVIDERS: PCP Family Medicine; Visit Provider Family Medicine
DX: E11.8 Type 2 diabetes mellitus with unspecified complications (principal); I48.91 Unspecified atrial fibrillation; E55.9 Vitamin D deficiency, unspecified
CPT/HCPCS: 36415; 80053; 80061; 81001; 82043; 82306; 82570; 83036; 83735; 84443; 85025

== ENCOUNTER → 2024-04-06 | Outpatient (CLI) | payer MEDICARE, SELFPAY | END | disposition home or self-care (01) | PROVIDERS: PCP Family Medicine; Visit Provider Family Medicine | DX: R82.81 Pyuria (principal) | CPT/HCPCS: 87077; 87086; 87088; 87186 ==

== ENCOUNTER → 2024-05-24 | Outpatient (CLI) | payer MEDICARE, SELFPAY ==
--- NOTE | 2024-05-24 12:53 | VDLE_ITS ---
Reason For Study: Bilateral leg swelling RIGHT LEFT CFV is compressible, spontaneous, phasic, CFV is compressible, spontaneous, phasic, competent and demonstrates normal competent, and demonstrates normal augmentation. augmentation. FV is compressible, spontaneous, phasic, FV is compressible, spontaneous, phasic, competent and demonstrates normal competent and demonstrates normal augmentation. augmentation. POP V is compressible, spontaneous, phasic, POP V is compressible, spontaneous, phasic, competent and demonstrates normal competent and demonstrates normal augmentation. augmentation. T/P Trunk is compressible. T/P Trunk is compressible. PTV is compressible. PTV is compressible. RT PerV is compressible. LT PerV is compressible. SFJ is INCOMPETENT and measures 0.68 cm. SFJ is INCOMPETENT and measures 0.87 cm. GSV proximal thigh measures 0.70 x 0.63 cm. GSV proximal thigh measures 0.76 x 0.77 cm. GSV above knee is INCOMPETENT for greater GSV above knee is competent. than 0.5 seconds. GSV at knee measures 0.39 x 0.43 cm. GSV at knee measures 0.54 x 0.58 cm. GSV below knee is INCOMPETENT for greater GSV below knee is competent. than 0.5 seconds. ASV 1 prox calf is INCOMPETENT for greater SSV mid calf is INCOMPETENT for greater than than 0.5 seconds and measures 0.39 x 0.41 cm. 0.5 seconds and measures 0.39 x 0.43 cm. Vessel is medial on leg. ASV 2 prox calf is INCOMPETENT for greater than 0.5 seconds and measures 0.27 x 0.26. Vessel is anterior on leg. Connects GSV prox calf to GSV mdistal calf. SSV mid calf is competent and measures 0.21 x 0.18 cm. Vascularized structure noted in the right groin that measures 1.84 x 2.39 cm. Procedure This is a venous duplex using B-mode, color flow and spectral Doppler. Exam performed in department. Patient was scanned in reverse Trendelenburg position during reflux assessment. VL/Venous Duplex US - Tj Extrem Interpretation Summary Deep veins of the bilateral lower extremities are patent and compressible segme ntally. There is no evidence of bilateral lower extremity deep vein thrombosis. The bilateral great saphenous veins appear patent and compressible segmentally. Positive for reflux in the right saphenofemoral junction, great saphenous vein above the knee, two accessory saphenous veins in the calf. Positive for reflux in the left saphenofemoral junction, great saphenous vein b elow the knee, and small saphenous vein. Vascularized structure noted in the right groin that measures 1.84 x 2.39 cm. Ordering Physician: Yarelis Lorenz Referring Physician: Lucio Romero Performed By: Sabiha Stiles RVT
== END | disposition home or self-care (01) ==
LOC: CVS 12:53
PROVIDERS: PCP Family Medicine; Referring Provider Physician Assistant; Visit Provider Physician Assistant
DX: R60.0 Localized edema (principal); I87.2 Venous insufficiency (chronic) (peripheral)
CPT/HCPCS: 93970

== ENCOUNTER → 2024-07-06 | Outpatient (CLI) | payer MEDICARE, SELFPAY ==
--- NOTE | 2024-07-06 15:27 | RAD_ITS ---
EXAM: XR LUMBOSACRAL SPINE, 2 OR 3 VIEWS CLINICAL INDICATION: pain TECHNIQUE: Frontal and lateral views of the lumbar spine and sacrum. COMPARISON: No relevant prior studies available. FINDINGS: VERTEBRAE: There is mild facet hypertrophy at L4-5 and L5-S1. Preserved vertebral body height. No fracture. No spondylolisthesis. Preservation of the normal lumbar lordosis. DISC SPACES: See above. GASTROINTESTINAL TRACT: Unremarkable as visualized. Included bowel gas pattern is non-obstructive. RAD/Lumbar Spine 2 or 3 Views IMPRESSION: No acute osseous abnormalities of the lumbar spine. There are degenerative changes with facet hypertrophy at L4-5 and L5-S1. Electronically Signed: Luis Downey MD at 23:59 EST ,
[2024-07-06 17:30] LABS: Absolute Lymphocyte Count 1.72 X10^3/uL (0.83-4.51); Absolute Neutrophil Count 4.5 X10^3/uL (2.0-7.7); Basophil# 0.05 X10^3/uL; Basophil% 0.7 % (0-1); Eosinophil# 0.17 X10^3/uL; Eosinophils% 2.4 % (0-5); Hematocrit 41.3 % (37-47); Hemoglobin 12.8 g/dL (12.0-15.0); Lymphocyte # 1.72 X10^3/ul (0.83-4.51); Lymphocyte % 24.4 % (19-41); Mean Corpuscular Hgb 26.2 pg (27.0-32.0); Mean Corpuscular Volume 84.5 fL (81-99); Mean Platelet Vol. 10.4 fl (6.2-12.0); Monocyte% 8.5 % (0-10); NRBC Flagged by Analyzer 0 % (0-5); Neutrophil # 4.48 X10^3/uL (2.7-7.7); Neutrophil % 63.7 % (47-70); Platelet Count 282 K/mm3 (150-450); RBC Distribution Width CV 13.6 % (11.6-14.6); RBC Distribution Width SD 42.2 fl (35.1-43.9); Red Blood Count 4.89 M/mm3 (4.2-5.4)
[2024-07-06 17:46] LABS: Color, Urine Yellow (Yellow); Glucose, Dipstick Normal (Normal); Ketone-Dipstick Negative (Negative); Leukocyte Esterase-Dipstick 25 /ul (Negative); Nitrite-Dipstick Negative (Negative); Occult Blood-Urine Negative /ul (Negative); Protein-Dipstick 15 mg/dl (Negative); Urine Bilirubin Dipstick Negative (Negative); Urine Clarity Sl. Cloudy (Clear); Urine Urobilinogen 1 mg/dl (Normal)
[2024-07-06 17:57] LABS: ALB/GLOB Ratio 0.8 RATIO (0.9-2.4); AST(SGOT) 19 U/L (15-37); Alanine Aminotransfer ALT/SGPT 27 U/L (13-56); Albumin, Serum 3.4 g/dL (3.2-5.0); Alkaline Phosphatase 97 U/L (45-117); Anion Gap 6 (5-15); BUN 13 mg/dL (7-18); BUN/Creat Ratio 17.6 RATIO (10-20); Calcium,Total 9.9 mg/dL (8.5-10.1); Chloride 106 mmol/L (98-107); Cholesterol 142 mg/dL (200); Creatinine, Serum 0.74 mg/dL (0.55-1.02); EST Glomerular Filtration Rate 83 mL/min (>60); Est Glom Filt Rate - Afr Amer 100 mL/min (>60); Globulin 4.3 g/dL (2.2-4.2); Glucose 191 mg/dL (74-106); High Density Lipoprotein 66 mg/dL; Magnesium 1.8 mg/dL (1.6-2.6); Potassium 3.8 mmol/L (3.5-5.1); Protein, Total 7.7 g/dL (6.4-8.2); Sodium Level 140 mmol/L (136-145); Triglycerides 113 mg/dL; Very Low Density Lipoprotein 23 mg/dL (5-40)
[2024-07-06 18:02] LABS: Vitamin D,25 Hydroxy 44.5 ng/mL
[2024-07-06 18:14] LABS: Bacteria 1+ /hpf (None Seen); Mucous, Urine 2+ /hpf (<or=2+); Red Blood Cells-Urine 0-5 SEEN /hpf (0-5); Squamous Epithelial Cells - UA 5-10 SEEN /hpf (5-10); White Blood Cells 5-10 SEEN /hpf (0-5)
[2024-07-06 18:14] LABS: Microalbumin,Random Urine 16.2 mg/L (NO RANGE EST.)
== END | disposition home or self-care (01) ==
PROVIDERS: PCP Family Medicine; Referring Provider Family Medicine; Visit Provider Family Medicine
DX: E11.8 Type 2 diabetes mellitus with unspecified complications (principal); I48.91 Unspecified atrial fibrillation; E55.9 Vitamin D deficiency, unspecified; M54.50 Low back pain, unspecified
CPT/HCPCS: 36415; 72100; 80053; 80061; 81001; 82043; 82306; 82570; 83036; 83735; 85025

== ENCOUNTER 2024-09-17 11:27 | Day surgery (SDC) | payer MEDICARE, SELFPAY ==
--- NOTE | 2024-09-14 14:29 | PAT.ANE_ITS ---
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 When Was Last Pacemaker Check QUESTION #4 FULL TEXT: You/Your Family Experience fever (hyperthermia) with Anesthesia Last Oral Intake Last Oral intake: Last Oral Intake NPO since Meds taken in AM with sips of water? 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 helper Female Yes 09/14/24 12:09 HX of Motion Sickness No 09/14/24 12:09 HX of N/V After Surgery No 09/14/24 12:09 Non-Smoker Yes 09/14/24 12:09 Duration of Surgery greater No 09/14/24 12:09 than 60 minutes Number of Risk Factors 2 09/14/24 12:09 PONV Score Moderate Risk 09/14/24 12:09 Height & Weight Height & Weight: Anesthesia: Height & Weight Height 5 ft 6 in 08/16/24 14:56 Respiratory Assessment Respiratory Assessment - sewer pipe layer helper: Respiratory Tract Infection Hx - sewer pipe layer helper Hx Respiratory Tract Infection No 09/14/24 12:09 STOP Sleep Apnea STOP Sleep Apnea - sewer pipe layer helper: STOP Sleep Apnea - sewer pipe layer helper Hx Hypertension Yes: CONTROLLED WITH MED 09/14/24 12:09 Hx Sleep Apnea Yes 09/14/24 12:09 CPAP Yes 09/14/24 12:09 BIPAP No 09/14/24 12:09 Do you snore loudly (louder than talking or can be heard Do you often feel tired/ fatigued/ sleepy during daytime? Has anyone observed you stop breathing during sleep? STOP Results Positive 09/14/24 12:09 QUESTION #5 FULL TEXT : Do you snore loudly (louder than talking or can be heard through closed doors)? 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 Tobacco Use Smoking Status Former smoker 09/14/24 12:09 Hx Tobacco Use No 09/14/24 12:09 Years Smoking Packs Smoked per Day Smoking Cessation Date was No - quit smoking greater 09/14/24 12:09 within the last 15 years than 15 years ago Hx Smoking Cessation Date 07/04/90 09/14/24 12:09 Hx Smoking Cessation Counseling Hematologic Medial History Hematologic Hx - sewer pipe layer helper: Hematologic Medical Hx - scaffolding helper Hx of Blood Transfusion No 09/14/24 12:09 Hx of Transfusion in last 3 No 09/14/24 12:09 Months Date of Last Transfusion (if within last 3 months) Ever experience any problems No 09/14/24 12:09 with transfusion(s)? Specify any problems Hx of Preganancy in last 3 N/A 09/14/24 12:09 Months Nurse Filling Out Transfusion NBUCHER 09/14/24 12:09 & Questions: Date: 09/14/24 09/14/24 12:09 Time: 12:11 09/14/24 12:09 Patient unable to answer at this time (ie. confused, unrespo /Reproduction History /Reproductive History - sewer pipe layer helper: /Reproductive Hx- sewer pipe layer helper Hx Now No 09/14/24 12:09 Gestational Age (in weeks): EDC: Hx Hx Para Hx Section SAB No 09/14/24 12:09 [facility] Medical History (Updated 09/14/24 @ 12:22 by Swathi Padilla) Wears glasses Wears dentures Diabetes Ambulates with cane High cholesterol Restless legs Syncope Difficulty swallowing Dietary restriction CPAP (continuous positive airway pressure) dependence Sleep apnea Former smoker History of edema History of stress test History of echocardiogram Cardiology follow-up encounter Sick sinus syndrome Atrial flutter (04/16/22) Right knee DJD Right knee pain Hyperlipidemia Osteoporosis Vaginal prolapse Arthritis Cervical cancer Type 2 diabetes mellitus Paroxysmal atrial fibrillation Essential (primary) hypertension Obesity Obstructive sleep apnea Knee pain Shoulder pain Home Medications ?Medication ?Instructions ?Recorded ?Last Taken ?Type atorvastatin 10 mg tablet (Lipitor) 10 mg PO QDAY #30 tabs 06/12/19 Unknown Rx sertraline 50 mg tablet 50 mg PO DAILY 08/21/20 Unkn own History calcium 600 mg (as 1 cap PO DAILY 08/20/21 Unkn own History carbonate)-vitamin D3 5 mcg (200 unit) capsule (Calcium 600 + D(3)) multivitamin 1 tab PO DAILY 08/20/21 Unkn own History rivaroxaban 20 mg tablet (Xarelto) 20 mg PO DAILY #90 TABLETS 12/01/23 Unknown Rx gabapentin 300 mg capsule 600 mg PO TID 05/01/24 Unkno wn History melatonin 5 mg capsule 5 mg PO QHS PRN sleep Unknown History metoprolol succinate 50 mg 50 mg PO DAILY #90 tabs Unknown Rx tablet,extended release 24 hr magnesium 200 mg tablet 200 mg PO DAILY 09/14/24 Unk nown History Allergy/AdvReac Type Severity Reaction Status Date / Time amoxicillin (From Augmentin) Allergy Unknown UNKNOWN Verified 09/14/24 12:06 clavulanic acid (From Allergy Unknown UNKNOWN Verified 09/14/24 12:06 Augmentin) Penicillins (PCN) Allergy Unknown UNKNOWN Verified 09/14/24 12:06 bacitracin (From Neosporin AdvReac Intermediate yeast Verified 09/14/24 12:06 ([id number])) infection neomycin AdvReac Intermediate yeast Verified 09/14/24 12:06 infection cephalexin AdvReac Mild yeast Verified 09/14/24 12:06 infection Family History (Reviewed 08/16/24 @ 15:30 by Lucio Dunham DIRECTOR OF COMPENSATION, DIRECTOR OF COMPENSATION-C) Father Diabetes Heart disease Mother Breast cancer CVA (cerebral vascular accident) Kidney disease Surgical History (Updated 09/14/24 @ 12:22 by Swathi Padilla) Hx of total knee replacement (~07/2023) S/P placement of cardiac pacemaker History of cardioversion (04/16/22) H/O bilateral salpingo-oophorectomy H/O meniscectomy of right knee History of radiofrequency ablation procedure for cardiac arrhythmia (02/01/17) History of cholecystectomy Hx of hysterectomy History of appendectomy Social History (Reviewed 08/16/24 @ 15:30 by Lucio Dunham DIRECTOR OF COMPENSATION, DIRECTOR OF COMPENSATION-C) Smoking Status: Former smoker how long ago did patient quit smokin + years ago alcohol intake: current alcohol intake frequency: a few times a month substance use type: does not use caffeine: Yes (Occasionally) Audit: Pertinent Findings Pertinent Findings EKG Perinent findings: 04/16/2022. Normal sinus rhythm. 90 bpm. Stress test pertinent findings: 09/04/2021. Normal myocardial perfusion stress test. Echo (EF%) pertinent findings: 07/01/2022. EF 65%. Normal function. Consult pertinent findings: Cardiology 08/16/2024. Paroxysmal atrial fibrillation. Chronic. EKG 04/16/2022 showed normal sinus rhythm. Essential hypertension. Chronic continue current medications. Pacemaker placement. Appears to be functioning appropriately. No change. Recommendation Anesthesia Recommendation Anesthesia recommendation: OPTIMIZED for anesthesia
[2024-09-17] VITALS (9 sets, daily range): BP systolic 100–160; BP diastolic 60–85; PULSE 84–99; RESP 14–18; TEMP 36.1–37.4; O2SAT 95–99; BMI 47.5
--- NOTE | 2024-09-17 12:25 | PCM.PRE.AN2 ---
ASA Classification* ASA Classification ASA Classification: 3 Assessment & Plan Anesthesia* Anesthesia Assessment Anesthesia Assessment: Discussed sedation and/or anesthesia options, risks, benefits, and alternatives with patient/parents/legal guardian/POA. Questions invited. The patient/parents/legal guardian/POA seems to understand and agrees to proceed with anesthesia plan. Reviewed the physical assessment, medical history, allergy history and patient home medications list prior to surgery/procedure/anesthetic and documented any changes. Performed airway and anesthesia risk assessments. Anesthesia Type Anesthesia Type: MAC History Source History Obtained from:: Patient and Chart Anesthesia Focused Assessment* Temperature: 96.9 F Pulse Rate: 96 Blood Pressure: 160/74 Respiratory Rate: 18 Pulse Ox: 95 Oxygen Delivery Method: Room Air Airway Assessment Mouth opens: 2 cm Mallampati Score: III Teeth Condition: Dentures (Patient has upper full dentures.) and Missing (Patient is edentulous on the bottom.) Neck Range of motion (ROM): Limited ROM (slight decrease in extension) Focused Labs Anesthesia Preop lab: CBC WBC 7.0 K/mm3 (4.4-11.0) 07/06/24 14:59 07/06/24 RBC 4.89 M/mm3 (4.2-5.4) 07/06/24 14:59 07/06/24 Hgb 12.8 g/dL (12.0-15.0) 07/06/24 14:59 07/06/24 Hct 41.3 % (37-47) 07/06/24 14:59 07/06/24 Plt Count 282 K/mm3 (150-450) 07/06/24 14:59 07/06/24 CHEMISTRY Potassium 3.8 mmol/L (3.5-5.1) 07/06/24 14:59 07/06/24 Sodium 140 mmol/L (136-145) 07/06/24 14:59 07/06/24 Magnesium 1.8 mg/dL (1.6-2.6) 07/06/24 14:59 07/06/24 BUN 13 mg/dL (7-18) 07/06/24 14:59 07/06/24 Creatinine 0.74 mg/dL (0.55-1.02) 07/06/24 14:59 07/06/24 Glucose 191 mg/dL (74-106) H 07/06/24 14:59 07/06/24 TSH 2.570 uIU/mL (0.358-3.740) 04/05/24 17:03 04/05/24 COAG Pre-Assessment Diagnosis/Proposed Procedure Planned Operative Procedure(s): CAUDAL BLOCK Anesthesia History 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 When Was Last Pacemaker Check QUESTION #4 FULL TEXT: You/Your Family Experience fever (hyperthermia) with Anesthesia Last Oral Intake Last Oral intake: Last Oral Intake NPO since 23:00 09/17/24 12:17 Meds taken in AM with sips of water? Meds patient instructed to take am of surgery PONV PONV - small battery plate assembler: PONV - small battery plate assembler Female Yes 09/14/24 12:09 HX of Motion Sickness No 09/14/24 12:09 HX of N/V After Surgery No 09/14/24 12:09 Non-Smoker Yes 09/14/24 12:09 Duration of Surgery greater No 09/14/24 12:09 than 60 minutes Number of Risk Factors 2 09/14/24 12:09 PONV Score Moderate Risk 09/14/24 12:09 Height & Weight Height & Weight: Anesthesia: Height & Weight Height 5 ft 6 in 09/17/24 12:17 Weight: 133.6 kg 09/17/24 12:17 Body Mass Index (BMI) 47.5 09/17/24 12:17 Respiratory Assessment Respiratory Assessment - small battery plate assembler: Respiratory Tract Infection Hx - small battery plate assembler Hx Respiratory Tract Infection No 09/14/24 12:09 STOP Sleep Apnea STOP Sleep Apnea - small battery plate assembler: STOP Sleep Apnea - small battery plate assembler Hx Hypertension Yes: CONTROLLED WITH MED 09/14/24 12:09 Hx Sleep Apnea Yes 09/14/24 12:09 CPAP Yes 09/14/24 12:09 BIPAP No 09/14/24 12:09 Do you snore loudly (louder than talking or can be heard Do you often feel tired/ fatigued/ sleepy during daytime? Has anyone observed you stop breathing during sleep? STOP Results Positive 09/14/24 12:09 QUESTION #5 FULL TEXT : Do you snore loudly (louder than talking or can be heard through closed doors)? Tobacco Use History Tobacco Use History - small battery plate assembler: Tobacco Use History - small battery plate assembler Tobacco Use Smoking Status Former smoker 09/14/24 12:09 Hx Tobacco Use No 09/14/24 12:09 Years Smoking Packs Smoked per Day Smoking Cessation Date was No - quit smoking greater 09/14/24 12:09 within the last 15 years than 15 years ago Hx Smoking Cessation Date 07/04/90 09/14/24 12:09 Hx Smoking Cessation Counseling Hematologic Medial History Hematologic Hx - small battery plate assembler: Hematologic Medical Hx - supervisor frame sample and pattern Hx of Blood Transfusion No 09/14/24 12:09 Hx of Transfusion in last 3 No 09/14/24 12:09 Months Date of Last Transfusion (if within last 3 months) Ever experience any problems No 09/14/24 12:09 with transfusion(s)? Specify any problems Hx of Preganancy in last 3 N/A 09/14/24 12:09 Months Nurse Filling Out Transfusion NBUCHER 09/14/24 12:09 & Questions: Date: 09/14/24 09/14/24 12:09 Time: 12:11 09/14/24 12:09 Patient unable to answer at this time (ie. confused, unrespo /Reproduction History /Reproductive History - small battery plate assembler: /Reproductive Hx- small battery plate assembler Hx Now No 09/14/24 12:09 Gestational Age (in weeks): EDC: Hx Hx Para Hx Section SAB No 09/14/24 12:09 PFSH Medical History Wears glasses Wears dentures Diabetes Ambulates with cane High cholesterol Restless legs Syncope Difficulty swallowing Dietary restriction CPAP (continuous positive airway pressure) dependence Sleep apnea Former smoker History of edema History of stress test History of echocardiogram Cardiology follow-up encounter Sick sinus syndrome Atrial flutter (04/16/22) Right knee DJD Right knee pain Hyperlipidemia Osteoporosis Vaginal prolapse Arthritis Cervical cancer Type 2 diabetes mellitus Paroxysmal atrial fibrillation Essential (primary) hypertension Obesity Obstructive sleep apnea Knee pain Shoulder pain Home Medications ?Medication ?Instructions ?Recorded ?Last Taken ?Type atorvastatin 10 mg tablet (Lipitor) 10 mg PO QDAY #30 tabs 06/12/19 09/14/24 Rx sertraline 50 mg tablet 50 mg PO DAILY 08/21/20 09/14/24 History calcium 600 mg (as 1 cap PO DAILY 08/20/21 09/14/24 History carbonate)-vitamin D3 5 mcg (200 unit) capsule (Calcium 600 + D(3)) multivitamin 1 tab PO DAILY 08/20/21 09/14/24 History rivaroxaban 20 mg tablet (Xarelto) 20 mg PO DAILY #90 TABLETS 12/01/23 09/14/24 Rx gabapentin 300 mg capsule 600 mg PO TID 05/01/24 09/17/24 History melatonin 5 mg capsule 5 mg PO QHS PRN sleep 07/25/24 09/16/24 History metoprolol succinate 50 mg 50 mg PO DAILY #90 tabs 08/16/24 09/14/24 Rx tablet,extended release 24 hr magnesium 200 mg tablet 200 mg PO DAILY 09/14/24 09/14/24 History Allergy/AdvReac Type Severity Reaction Status Date / Time amoxicillin (From Augmentin) Allergy Unknown UNKNOWN Verified 09/17/24 12:15 clavulanic acid (From Allergy Unknown UNKNOWN Verified 09/17/24 12:15 Augmentin) Penicillins (PCN) Allergy Unknown UNKNOWN Verified 09/17/24 12:15 bacitracin (From Neosporin AdvReac Intermediate yeast Verified 09/17/24 12:15 ([id number])) infection neomycin AdvReac Intermediate yeast Verified 09/17/24 12:15 infection cephalexin AdvReac Mild yeast Verified 09/17/24 12:15 infection Family History Father Diabetes Heart disease Mother Breast cancer CVA (cerebral vascular accident) Kidney disease Surgical History Hx of total knee replacement (~07/2023) S/P placement of cardiac pacemaker History of cardioversion (04/16/22) H/O bilateral salpingo-oophorectomy H/O meniscectomy of right knee History of radiofrequency ablation procedure for cardiac arrhythmia (02/01/17) History of cholecystectomy Hx of hysterectomy History of appendectomy Social History Smoking Status: Former smoker how long ago did patient quit smokin + years ago alcohol intake: current alcohol intake frequency: a few times a month substance use type: does not use caffeine: Yes (Occasionally) Review of Systems (Anesthesia) ROS Narrative System reviewed and no additional complaints, except as documented.
--- NOTE | 2024-09-17 12:35 | RAD_ITS ---
PROCEDURE: Fluoroscopy use. 09/17/2024 REASON FOR EXAM: BLOCK, CAUDAL TECHNIQUE: A single intraoperative spot image was obtained during caudal nerve block. 6.2 seconds of fluoroscopic time utilized. COMPARISON: None. FINDINGS: A single lateral spot view of the sacrum was obtained during caudal nerve block. A needle tip projects over the distal aspect of the sacrum. RAD/Fluor Guidance for Spine Inj IMPRESSION: Documentation of fluoroscopy use during caudal nerve block. Please see the pro cedure note for details. Reading Location: [facility]
[2024-09-17] MEDS: Lidocaine 1% (5 ml sdv) 5 ML Vial (12:42)
[2024-09-17] MEDS: Bupivacaine 0.25% 30 ML Vial (12:42)
[2024-09-17] MEDS: MethylPREDNISolone Acetate 80 MG/ML Vial (12:43)
[2024-09-17] MEDS: 0.9% Normal Saline (Pres. free 10 ML Vial (12:43)
[2024-09-17 12:46] LABS: Bedside Glucose 113 mg/dL (74-106)
--- NOTE | 2024-09-17 12:50 | OP.PCM_ITS ---
Operative Report (Standard) Operative Information Date of Procedure: 09/17/24 Pre-Operative Diagnosis: Lumbosacral radiculopathy, lumbosacral degenerative disc disease, lumbosacral spinal stenosis Post-Operative Diagnosis: Lumbosacral radiculopathy, lumbosacral degenerative disc disease, lumbosacral spinal stenosis Surgery/Procedure Performed: Diagnostic/therapeutic caudal pleural steroid injection under fluoroscopic guidance curtains and draperies salesperson: No Type of Anesthesia: Local MAC RN Documented Start/Stop Times: Operation Date: 09/17/24 13:20 Case Time Into Pre-Op 09/17/24 11:51 Anesthesia Start 09/17/24 12:37 Into Room 09/17/24 12:37 Anesthesia End 09/17/24 12:49 Out of Room 09/17/24 12:49 Procedure End 09/17/24 12:49 Procedure Start Time: 12:51 Procedure Stop Time: 12:51 Select all DRAINS/GRAFTS/IMPLANTS that apply: None Estimated Blood Loss: 1 Specimen collected: No Description of surgery: ANESTHESIA: MAC. BLOOD LOSS: Minimal. COMPLICATIONS: None. DESCRIPTION OF PROCEDURE: History and physical of today was reviewed. Risks and benefits of the procedure were explained. The patient understood and agreed to proceed. Informed consent was obtained. IV inserted per routine protocol. The patient was taken to the operating room and placed in the prone position with a pillow positioned underneath the abdomen. The lower back and tailbone area was prepped and draped in a sterile fashion using iodine x3. Under fluoroscopy guidance on a lateral view, the caudal space was identified. The skin and subcutaneous tissue was anesthetized with approximately 3 mL of 1% lidocaine using a 25-gauge regular needle. Under direct visualization with fluoroscopy, using a 22-gauge 3-1/2-inch spinal needle, the needle was advanced via the skin through the sacral hiatus. The tip of the needle was passed through the sacrococcygeal ligament and advanced to approximately S4 area. After negative aspiration of blood or CSF, a total of 3 mL of contrast was injected to confirm correct placement of the needle as well as cephalad spread. The spread was followed to approximately L5 area. After confirmation on AP as well as lateral view and repeated negative aspiration, a total of 15 mL of preservative-free 0.125% Marcaine with 80 mg of Depo-Medrol was injected easily. The needle was then removed intact. The patient experienced no sign or symptoms of intrathecal or intravascular injection. The patient experienced no paresthesia. The procedure was completed without any apparent difficulty or any complications. The patient appeared to tolerate it well. ASSESSMENT AND PLAN: This is a 69-year-old female with lumbosacral radiculopathy, lumbosacral degenerative disc disease, lumbosacral spinal stenosis status post diagnostic/therapeutic caudal epidural steroid injection under fluoroscopic guidance, patient will continue current medications, patient will follow up in approximately 2 weeks for reevaluation. Surgical Findings: 0 Complications Complications: No Admit VTE Documentation VTE Present on Admission: No VTE Mechan Device Prophylaxis: None VTE Pharm Prophylaxis ordered?: No
--- NOTE | 2024-09-17 12:56 | PCM.POST.ANE ---
Anesthesia: Postop Eval I Current Vital Signs Temperature: 97.4 F Pulse Rate: 99 Blood Pressure: 148/85 Respiratory Rate: 14 Pulse Ox: 98 Oxygen Delivery Method: Room Air Assessment Airway patent: Yes Spontaneous unlabored respirations: Yes Mental status: Awake nausea: No Vomiting: No Anesthesia Complication: No Fluid Hydration Crystalloid volume administer (ml): 10 Total IV fluid infused: 10 Progress Note Anesthesia document: Postop Eval 1 completed: Yes
--- NOTE | 2024-09-17 17:50 | POSTOPAN2_ITS ---
Anesthesia Postop Eval I Sum Postop Eval Completion status Anesthesia document: Postop Eval 1 completed: Yes Anesthesia Postop Eval I Summary Anesthesia Postop Eval I Summary: Anesthesia Postop Eval I: Assessment Summary Airway patent Yes 09/17/24 12:57 INFORMATION MANAGEMENT MANAGER.[email or web address] Spontaneous unlabored Yes 09/17/24 12:57 INFORMATION MANAGEMENT MANAGER.HBARR respirations Mental status Awake 09/17/24 12:57 INFORMATION MANAGEMENT MANAGER.HBARR nausea No 09/17/24 12:57 INFORMATION MANAGEMENT MANAGER.[email or web address] Vomiting No 09/17/24 12:57 INFORMATION MANAGEMENT MANAGER.HBARR Anesthesia Postop Eval I: Fluid Summary Crystalloid volume administer 10 09/17/24 12:57 INFORMATION MANAGEMENT MANAGER.HBARR (ml) Colloids volume administered ( ml) Blood Product volume administered (ml) Total IV fluid infused 10 09/17/24 12:57 INFORMATION MANAGEMENT MANAGER.HBARR Anesthesia Postop Eval I: Summary Notes Anesthesia Complication No 09/17/24 12:57 INFORMATION MANAGEMENT MANAGER.HBARR Anesthesia Complication Comment: Post-operative progress note Anesthesia: Postop Eval II Evaluation Mental status: Awake and Calm Pain Level: 2 nausea: No Vomiting: No Complications Anesthesia Complication: No
--- NOTE | 2024-09-17 17:50 | PCM.POSTANE2 ---
Anesthesia Postop Eval I Sum Postop Eval Completion status Anesthesia document: Postop Eval 1 completed: Yes Anesthesia Postop Eval I Summary Anesthesia Postop Eval I Summary: Anesthesia Postop Eval I: Assessment Summary Airway patent Yes 09/17/24 12:57 [email or web address] Spontaneous unlabored Yes 09/17/24 12:57 [email or web address] respirations Mental status Awake 09/17/24 12:57 [email or web address] nausea No 09/17/24 12:57 [email or web address].HBARR Vomiting No 09/17/24 12:57 [email or web address] Anesthesia Postop Eval I: Fluid Summary Crystalloid volume administer 10 09/17/24 12:57 [email or web address] (ml) Colloids volume administered ( ml) Blood Product volume administered (ml) Total IV fluid infused 10 09/17/24 12:57 [email or web address].HBARR Anesthesia Postop Eval I: Summary Notes Anesthesia Complication No 09/17/24 12:57 [email or web address] Anesthesia Complication Comment: Post-operative progress note Anesthesia: Postop Eval II Evaluation Mental status: Awake and Calm Pain Level: 2 nausea: No Vomiting: No Complications Anesthesia Complication: No
== END 2024-09-17 13:41 | disposition home or self-care (01) ==
LOC: SDC 11:28 → AC 11:30
PROVIDERS: PCP Family Medicine; Referring Provider Anesthesiology Pain Medicine; Visit Provider Anesthesiology Pain Medicine
PROC: 3E0S3BZ Introduction of Anesthetic Agent into Epidural Space, Percutaneous Approach (ICD-10-PCS; CPT 62282; principal; 2024-09-17 13:15)
DX: M51.17 Intervertebral disc disorders with radiculopathy, lumbosacral region (principal); I48.0 Paroxysmal atrial fibrillation; E11.9 Type 2 diabetes mellitus without complications; M48.07 Spinal stenosis, lumbosacral region; I10 Essential (primary) hypertension; E78.00 Pure hypercholesterolemia, unspecified; G47.33 Obstructive sleep apnea (adult) (pediatric); Z87.891 Personal history of nicotine dependence
CPT/HCPCS: 62323; 01992; 64483; 77003; 82962; A4216

== ENCOUNTER 2024-09-21 17:56 | Outpatient (CLI) | payer MEDICARE, SELFPAY | END 2024-09-21 23:59 | disposition home or self-care (01) | PROVIDERS: PCP Family Medicine | DX: R39.9 Unspecified symptoms and signs involving the genitourinary system (principal) | CPT/HCPCS: 87077; 87086; 87088; 87186 ==

== ENCOUNTER → 2024-10-23 | Outpatient (CLI) | payer MEDICARE, SELFPAY ==
--- NOTE | 2024-10-23 16:12 | RAD_ITS ---
PROCEDURE: L/S SPINE W BEND MIN 6 VW 10/23/2024 REASON FOR EXAM: FELL TECHNIQUE: Standing AP view(s) of the thoracic and lumbar spine. 6 views total were obtained. COMPARISON: None FINDINGS: Curvature: Normal lordotic lumbar curvature. Bones: There are 5 lumbar-type vertebral bodies below the last set of paired ribs. Vertebral body heights are within normal limits. There is approximately 5 mm of anterolisthesis of L 4 in relationship to L5. This appears stable on both flexion and extension views. Other: There does appear to be some disc space narrowing involving the posterior aspect of the L1-L2, L2-L3 and L3-L4 disc spaces are there is slight disc space narrowing involving the L4-L5 and L5-S1 disc. There does appear to be some bony encroachment of the neural foramina at levels. Radiopaque clips are projected over the right mid abdominal region. RAD/L/S Spine w Bend Min 6 Vw IMPRESSION: Approximately 5 mm of anterior listhesis of L4 in relationship to L5. Degenerative disc disease involving all levels as described above. There is so me bony encroachment on the neural foramina. Reading Location: [facility]
--- NOTE | 2024-10-23 16:20 | RAD_ITS ---
PROCEDURE: THORACIC SPINE 3 VIEWS 10/23/2024 REASON FOR EXAM: UPPER BACK PAIN, RECENT FALL TECHNIQUE: 3 views of the thoracic spine. FINDINGS: Normal thoracic vertebral body heights. Disc space heights are preserved. Normal alignment. Paraspinal soft tissues are unremarkable. Other: RAD/Thoracic Spine 3 Views IMPRESSION: NEGATIVE THORACIC SPINE X-RAYS. Reading Location: [id number]
== END | disposition home or self-care (01) ==
LOC: MTRAD 16:12
PROVIDERS: PCP Family Medicine
DX: M54.9 Dorsalgia, unspecified (principal)
CPT/HCPCS: 72072; 72114

== ENCOUNTER → 2024-11-16 | Outpatient (CLI) | payer MEDICARE, SELFPAY ==
[2024-11-16 12:02] LABS: Mucous, Urine 0 SEEN /hpf (<or=2+); Red Blood Cells-Urine 0 SEEN /hpf (0-5)
[2024-11-16 15:37] LABS: Absolute Lymphocyte Count 1.47 X10^3/uL (0.83-4.51); Absolute Neutrophil Count 3.3 X10^3/uL (2.0-7.7); Basophil# 0.06 X10^3/uL; Basophil% 1.1 % (0-1); Eosinophil# 0.12 X10^3/uL; Eosinophils% 2.2 % (0-5); Hematocrit 38.7 % (37-47); Hemoglobin 12.4 g/dL (12.0-15.0); Lymphocyte # 1.47 X10^3/ul (0.83-4.51); Lymphocyte % 26.9 % (19-41); Mean Corpuscular Hgb 27.8 pg (27.0-32.0); Mean Corpuscular Volume 86.8 fL (81-99); Mean Platelet Vol. 10.5 fl (6.2-12.0); Monocyte# 0.55 X10^3/uL; Monocyte% 10.1 % (0-10); NRBC Flagged by Analyzer 0 % (0-5); Neutrophil # 3.25 X10^3/uL (2.7-7.7); Neutrophil % 59.3 % (47-70); Platelet Count 282 K/mm3 (150-450); RBC Distribution Width SD 44.4 fl (35.1-43.9); Red Blood Count 4.46 M/mm3 (4.2-5.4); White Blood Count 5.5 K/mm3 (4.4-11.0)
[2024-11-16 15:57] LABS: Hemoglobin A1c 6.7 % (<=5.6)
[2024-11-16 16:11] LABS: ALB/GLOB Ratio 1.2 RATIO (0.9-2.4); AST(SGOT) 21 U/L (<=31); Alanine Aminotransfer ALT/SGPT 16 U/L (<=34); Alkaline Phosphatase 91 U/L (35-104); Anion Gap 10 (5-15); BUN 13 mg/dL (4-19); BUN/Creat Ratio 19.7 RATIO (10-20); Calcium,Total 9.6 mg/dL (7.6-11.0); Carbon Dioxide 26.8 mmol/L (21.0-32.0); Chloride 102 mmol/L (98-108); Cholesterol 141 mg/dL (<=200); Creatinine, Serum 0.66 mg/dL (0.70-1.20); EST Glomerular Filtration Rate 94 (>60); Globulin 3.4 g/dL (2.2-4.2); Glucose 128 mg/dL (70-99); High Density Lipoprotein 56 mg/dL; Low Density Lipoprotein Calc. 69 mg/dL; Magnesium 1.9 mg/dL (1.5-2.2); Potassium 4.2 mmol/L (3.3-5.1); Protein, Total 7.4 g/dL (5.9-8.4); Sodium Level 138 mmol/L (133-145); Total Bilirubin 0.53 mg/dL (0.00-1.30); Triglycerides 81 mg/dL; Very Low Density Lipoprotein 16 mg/dL (5-40); cholesterol:hdl ratio screen 2.52
[2024-11-16 16:31] LABS: Color, Urine Yellow (Yellow); Glucose, Dipstick Normal (Normal); Ketone-Dipstick Negative (Negative); Leukocyte Esterase-Dipstick Negative /ul (Negative); Nitrite-Dipstick Negative (Negative); Occult Blood-Urine Negative /ul (Negative); Protein-Dipstick Negative (Negative); Specific Gravity, Urine 1.015 (1.002-1.030); Urine Bilirubin Dipstick Negative (Negative); Urine Clarity Sl. Cloudy (Clear); Urine Urobilinogen Normal (Normal)
[2024-11-16 16:39] LABS: Bacteria 1+ /hpf (None Seen); Squamous Epithelial Cells - UA 0-5 SEEN /hpf (5-10)
[2024-11-16 16:40] LABS: White Blood Cells 0-5 SEEN /hpf (0-5)
== END | disposition home or self-care (01) ==
LOC: MFPLAB 11:55
PROVIDERS: PCP Family Medicine; Referring Provider Family Medicine; Visit Provider Family Medicine
DX: E11.8 Type 2 diabetes mellitus with unspecified complications (principal); I48.91 Unspecified atrial fibrillation; E55.9 Vitamin D deficiency, unspecified
CPT/HCPCS: 36415; 80053; 80061; 81001; 82306; 83036; 83735; 85025

== ENCOUNTER 2024-12-14 15:30 | Outpatient (RCR) | payer MEDICARE, SELFPAY ==
--- NOTE | 2024-11-05 16:09 | HP.PTEVAL_ITS ---
Patient's Visit Information Visit Information Visit Information: PANKAJ NIXON is a 69 year old F referred to Physical Therapy by MIKAEL Champagne with a diagnosis of LEG WEAKNESS. Date of Evaluation: 11/05/24 Physical Therapist: Fredy Monet, PT, Cert MDT, OCS Visit Plan Frequency: 2x /Week Duration: 6 Weeks Plan: PT INTERVENTIONS BLE STRENGTHENING ,FUNCTIONAL STRENGTHENING ,BALANCE DELLA CHAD AND ENDURANCE PROGRAM Subjective Subjective: This 69 y/o female presents to physical therapy leg weakness . Patient seen DR and recommended PT with weakness in legs. Patient used cane today but uses rollator at home. Patient seen DR for routine visit blood work A1C .Patient has h/o fall 3 weeks mechanical fall . Patient has pacemaker ,TKA . Patient denies paresthesia in feet due to neuropathy .Patient has edema in legs.Patient has some lumbar pain . Patient did injection epidural injection September 17. Patient lives 1 story home with 4 steps with rails. Patient walk in shower. Patient is able dress except with compression socks and pulling up pants. Patient sleeping good. Patient assist with cooking and daughters does cleaning. Patient denies SOB. Patient feels unsteady with gait . Patient condition affects QOL and function. SOCIAL VOCATION: RETIRED Pain Bilateral Back: Pain Intensity (Out of 10): 3 Pain Intensity Range: 10 Objective Objective: POSTURE: mild forward posture ,hips/knees flexed GAIT: ambulates with 2 point gait slow chichi shuffles unsteady with cane ( uses rollator at home) BALANCE: fair with cane AROM: supine knee flexion 5-105 degrees supine flexion FLEXABILITY: hamstrings mod tight MMT: ( peak force) quads right 15.1 ,left 14.2 , hamstrings right 13.5 ,left 14.2 ,hip flexion right 16.9 ,left 15.1 Balance/Special Test Scores CATSIB Score (Max score 120 seconds): 57 Lower Extremity Functional Score: 16 Goals Goal 1:: Patient to be I with HEP for strengthening Goal Time Frame: 4-6 Weeks Goal 2:: Patient to improve CATSIBE score by 5 points to decrease risk of falls Goal Time Frame: 4-6 Weeks Goal 3:: Patient to improve peak force quads/hams/hip by 5-10# to improve gait Goal Time Frame: 4-6 Weeks Goal 4:: Patient to improve LFES score by 5 points to improve QOL and gait Goal Time Frame: 4-6 Weeks Goal 5:: Patient to demonstrate 50% improvement with less pain and improved function with gait Goal Time Frame: 4-6 Weeks Rehabilitation Potential Physical Therapy Diagnosis: This patient has BLE weakness with decrease balance and gait impairments risk for falls thus benefit PT Rehabilitation Potential: Fair Anticipated Interventions Patient/Client Instruction: Educate patient on: Condition and Plan of Care For the Purpose of:: To decrease pain, To improve muscle performance and motor function, To improve ability to perform ADL's, To increase tolerance to activity/condition/position, To improve ability of physical actions for jonathan e/community/work/leisure, To increase flexibility/ROM, To improve endurance, To improve balance and To improve tolerance to ADL's Therapeutic Exercise to Include: Strength training, Endurance training, Balance training and Gait and locomotor training Comment: BLE For the Purpose of:: To improve muscle performance and motor function, To improve ability to perform ADL's, To increase tolerance to activity/condition/position, To improve ability of physical actions for home/community/work/leisure, To improve gait and locomotor functions, To increase flexibility/ROM, To improve endurance, To reduce risk of recurrence, To improve health and function and To improve tolerance to ADL's Text: Thank you for the opportunity to evaluate your patient. For Medicare and Medicare HMO plans, please review the plan of care and approve it. It will need to be FAXED BACK to us at [phone] for Medicare purposes. For Medicare only, by signing this I certify the plan of care. Please let me know if there are questions or concerns regarding this plan of care. Physician Signature: Date:
--- NOTE | 2024-12-20 16:55 | HP.PTDCSUM ---
Discharge Summary D/C summary: It has been my pleasure to treat PANKAJ NIXON referred by GINA ChampagneC, with the diagnosis of LEG WEAKNESS for a total of 9 visit(s). Discharge Date: 12/20/24 Please see the following information for a summary of their discharge status. Subjective Subjective: PT is helping some Plan to use silver sneaker Pain Bilateral Back: Pain Intensity (Out of 10): 3 Overall Improvement % Improvement: 30 Objective Objective/Function: POSTURE: mild forward posture ,hips/knees flexed GAIT: ambulates with 2 point gait slow chichi shuffles unsteady with cane ( uses rollator at home) BALANCE: fair with cane AROM: supine knee flexion 5-105 degrees supine flexion FLEXABILITY: hamstrings mod tight MMT: ( peak force) quads right 28.1 ,left 27.2 , hamstrings right 36.7 ,left 34..2 ,hip flexion right 27.9 ,left 26.1 Goals Goal 1:: Patient to be I with HEP for strengthening Goal Progress: Progressing Goal 2:: Patient to improve CATSIBE score by 5 points to decrease risk of falls Goal Progress: Progressing Goal 3:: Patient to improve peak force quads/hams/hip by 5-10# to improve gait Goal Progress: Goal Met Goal 4:: Patient to improve LFES score by 5 points to improve QOL and gait Goal Progress: Progressing Goal 5:: Patient to demonstrate 50% improvement with less pain and improved function with gait Plan Plan: D/C TO HEP D/C Information Discharge Comments: -Silver sneakers - water ex's d/c sentence: If there are questions or concerns regarding this patient's physical therapy, please feel free to call me at [phone]. Thank you for the referral of this patient. Sincerely, Fredy Monet, PT, Cert MDT, OCS Balance/Gait/Functional tests Balance/Special Test Scores CATSIB Score (Max score 120 seconds): 55 Lower Extremity Functional Score: 12 Improvement % Improvement: 30
== END 2024-12-14 19:00 | disposition home or self-care (01) ==
LOC: PT 15:30
PROVIDERS: PCP Family Medicine
DX: R29.898 Other symptoms and signs involving the musculoskeletal system (principal)
CPT/HCPCS: 97110; 97162

== ENCOUNTER → 2025-02-19 | Outpatient (CLI) | payer MEDICARE, SELFPAY ==
[2025-02-19 18:19] LABS: Hematocrit 43.0 % (37-47); Hemoglobin 13.7 g/dL (12.0-15.0); Immature Granulocytes Count 0.020 X10^3/uL (0.0-0.0); Mean Corp Hgb Conc 31.9 g/dL (32-36); Mean Corpuscular Volume 86.3 fL (81-99); Mean Platelet Vol. 10.9 fl (6.2-12.0); NRBC Flagged by Analyzer 0 % (0-5); Platelet Count 295 K/mm3 (150-450); RBC Distribution Width CV 13.2 % (11.6-14.6); RBC Distribution Width SD 41.1 fl (35.1-43.9); Red Blood Count 4.98 M/mm3 (4.2-5.4); White Blood Count 7.7 K/mm3 (4.4-11.0)
[2025-02-19 19:14] LABS: AST(SGOT) 24 U/L (<=31); Alanine Aminotransfer ALT/SGPT 22 U/L (<=34); Albumin, Serum 3.9 g/dL (3.4-4.8); Alkaline Phosphatase 112 U/L (35-104); Anion Gap 11 (5-15); BUN 8 mg/dL (4-19); BUN/Creat Ratio 12.1 RATIO (10-20); Calcium,Total 9.9 mg/dL (7.6-11.0); Carbon Dioxide 27.0 mmol/L (21.0-32.0); Chloride 101 mmol/L (98-108); Cholesterol 140 mg/dL (<=200); Globulin 3.5 g/dL (2.2-4.2); Glucose 125 mg/dL (70-99); Low Density Lipoprotein Calc. 63 mg/dL; Magnesium 1.9 mg/dL (1.5-2.2); Potassium 4.1 mmol/L (3.3-5.1); Triglycerides 112 mg/dL; Very Low Density Lipoprotein 22 mg/dL (5-40); Vitamin D,25 Hydroxy 35.5 ng/mL (30-100); cholesterol:hdl ratio screen 2.57
[2025-02-19 19:32] LABS: Creatinine, Urine (random) 226.00 mg/dL (28.00-217.00); Microalbumin,Random Urine 32.1 mg/L (<20 mg/L)
== END | disposition home or self-care (01) ==
LOC: MFPLAB 14:26
PROVIDERS: PCP Family Medicine; Referring Provider Family Medicine; Visit Provider Family Medicine
DX: N39.0 Urinary tract infection, site not specified (principal); I48.91 Unspecified atrial fibrillation; E11.8 Type 2 diabetes mellitus with unspecified complications; E55.9 Vitamin D deficiency, unspecified
CPT/HCPCS: 36415; 80053; 80061; 82043; 82306; 82570; 83036; 83735; 85025; 87086; 87088

== ENCOUNTER → 2025-03-12 | Outpatient (CLI) | payer MEDICARE, SELFPAY ==
--- NOTE | 2025-03-12 16:17 | RAD_ITS ---
PROCEDURE: CHEST PA AND LATERAL 03/12/2025 REASON FOR EXAM: COUGH TECHNIQUE: Procedure Code: RADCXR Modality: DX Procedure: CHEST PA AND LATERAL COMPARISON: 04/24/2020 FINDINGS: Left chest pacer. Mild pulmonary vascular congestion. No focal consolidation. No pleural effusion or pneumothorax. Cardiac silhouette is stable No acute fractures. RAD/Chest PA and Lateral IMPRESSION: Mild pulmonary vascular congestion. No focal consolidation. [id number]
== END | disposition home or self-care (01) ==
PROVIDERS: PCP Family Medicine; Referring Provider Family Medicine; Visit Provider Family Medicine
DX: R05.9 Cough, unspecified (principal)
CPT/HCPCS: 71046

== ENCOUNTER → 2025-03-14 | Outpatient (CLI) | payer MEDICARE, SELFPAY ==
--- NOTE | 2025-03-14 15:45 | BI_ITS ---
EXAM: SCRN MAMM (CAD)W/ADDISON BILAT DATE: 03/14/2025 CLINICAL HISTORY: F, Age 69 y/o , SCREENING Mother with breast cancer. History of prior left excisional breast biopsy. TECHNIQUE: Procedure Code: [id number] Modality: MG Procedure: SCRN MAMM (CAD)W/ADDISON BILAT COMPARISON: Prior exam(s) dated May 26, 2022.. FINDINGS: TISSUE DENSITY: There are scattered areas of fibroglandular density. Bilateral Breast Mammographic Findings: No significant masses, calcifications or other abnormalities are identified. Stable benign-appearing well-circumscribed nodules in the upper-outer aspects of both breasts. Stable benign-appearing small axillary lymph nodes. A battery pack of a pacemaker device is seen in the left axilla. No suspicious masses, areas of developing architectural distortion, or suspicious calcifications. There has been no significant interval change. BI/SCRN MAMM (CAD)W/ADDISON BILAT IMPRESSION: Stable bilateral screening mammogram. OVERALL FINAL ASSESSMENT BI-RADS 2: BENIGN RECOMMENDATION: Routine annual follow-up in 1 Year A letter with findings and recommendations will be mailed to the patient. Reading Location: [facility]
== END | disposition home or self-care (01) ==
LOC: OPBI 15:33
PROVIDERS: PCP Family Medicine; Referring Provider Family Medicine; Visit Provider Family Medicine
DX: Z12.31 Encounter for screening mammogram for malignant neoplasm of breast (principal); Z80.3 Family history of malignant neoplasm of breast
CPT/HCPCS: 77063; 77067

== ENCOUNTER → 2025-04-25 | Outpatient (CLI) | payer MEDICARE, SELFPAY ==
--- NOTE | 2025-04-25 10:31 | ST.MBS ---
Modified Barium Swallow Patient Information Study Date: 04/25/25 Study Time: 13:00 Direct Billable Minutes: 68 Total Minutes procedure & reportin Diagnosis: Dysphagia R13.10 Referring Physician: Lucio Romero Reason for Referral: Pt's PCP referred her for MBSS due to difficulty swallowing solids characterized by sensation of any type of food texture becoming caught in her throat w/ extensive coughing episodes. Liquid washes do not appear to help clear the foods and often make the issue worse. This issue began w/ sudden onset a few months ago and occurs 2-3X daily. Pt reports hx of choking on a chip ~6-7 years ago. Pills occ feel stuck in her throat, but will clear w/ liquid washes. Medical History: PMH per EMR review: DM Type 2, A fib, HTN, HLD, Vitamin D deficiency, Former smoker, Sick sinus syndrome, Obesity, Placement of cardiac pacemaker, Hyponatremia. Current Diet Ordered: Regular textures / Thin liquids Dentition: Upper Dentures and Lower Dentures Mental Status: WNL Respiratory Status: Oxygenating on Room Air Penetration-Aspiration Scale Penetration-Aspiration Scale: OBJECTIVE ASSESSMENT OF SWALLOW FUNCTION (QUANTITATIVE ? PER TRIAL): PENETRATION / ASPIRATION SCALE (VALDES): 1 = does not enter airway 2 = enters airway/above vocal folds/ejected 3 = enters airway/above vocal folds/not ejected 4 = enters airway/contacts vocal folds/ejected 5 = enters airway/contacts vocal folds/not ejected 6 = enters airway/below vocal folds/ejected 7 = enters airway/below vocal folds/not ejected despite effort 8 = enters airway/below vocal folds/no effort VIDEOFLOROSCOPIC SCALE SCORE (VALDES): Grade I = aspiration of material that has penetrated into the laryngeal vestibule, intact cough reflex Grade II = aspiration < 10 % of the bolus, intact cough reflex Grade III = aspiration of < 10 % of the bolus, reduced cough reflex or aspiration of > 10 % of the bolus, intact cough reflex Grade IV = aspiration of > 10 % of the bolus, reduced cough reflex Penetration-Aspiration Scale Score Thin Liquid via teaspoon: Result: 2= enter airway/above vocal folds/ejected Thin Liquid via teaspoon Trial 2: Result: 2= enter airway/above vocal folds/ejected Thin Liquid via sequential sips: cup: Result: 2= enter airway/above vocal folds/ejected Thin Liquid via sequential sips:straw: Result: 2= enter airway/above vocal folds/ejected Comment: Esophageal screen - Retention in the middle and lower esophagus w/ retrograde flow to the upper esophagus. Effort Thick Liquid via large single sip: cup: Result: 2= enter airway/above vocal folds/ejected Pudding via teaspoon: Result: 1= does not enter airway Comment: Esophageal screen - Complete clearance. 1/2 Cookie: Result: 1= does not enter airway Comment: Esophageal screen - Minimal residue in the middle esophagus. Barium Tablet w/ Water: Result: 1= does not enter airway Comment: Esophageal screen - Complete clearance. Oral Phase Labial Seal: No Labial Escape Tongue Control During Bolus Hold: Posterior escape of greater than half of bolus Bolus Preparation/Mastication: Timely and efficient chewing and mashing Bolus Transport/Lingual Motion: Brisk tongue motion Oral Residue: Trace residue lining oral structures Pharyngeal Phase Initiation of Pharyngeal Swallow: Bolus head in pyriforms Soft Palate Elevation: Trace column of contrast/air between soft palate and pharyngeal wall Laryngeal Elevation: Comp. Superior move thyroid cart w/comp. apprx arytenoid cart-epig pet Anterior Hyoid Excursion: Partial anterior movement Epiglottic Movement: Complete inversion Laryngeal Vestibule Closure at Height of Swallow: Incomplete; narrow column of air/contrast in laryngeal vestibule Pharyngeal Stripping Wave: Present - complete Pharyngoesophageal Segment Opening: Complete distension and complete duration; no obstruction of flow Tongue Base Retraction: Narrow column of contrast between tongue base & post. pharyngeal wall Pharyngeal Residue: Trace residue within or on pharyngeal structures Esophageal Phase Esophageal Clearance: Esophageal retention w/ retrograde flow below pharyngoesophageal seg. Diagnosis/Impression Diagnosis: Mild pharyngoesophageal dysphagia R13.14 MBS Impressions: The oral phase is grossly WNL; however, larger boluses did have premature posterior loss to the pharynx. The pharyngeal phase is marked by... -Delayed swallow onset w/ bolus in the pyriform sinuses and even in the laryngeal vestibule as the swallow onset, increasing risk for aspiration during the swallow. Fortunately, the patient has good laryngeal elevation and consistent laryngeal penetration of liquids fully ejected from the laryngeal vestibule. No aspiration observed. -Mildly decreased anterior hyoid excursion. -Mildly decreased TB retraction; however, overall good pharyngeal motility. The esophageal phase is marked by... -Retention of liquids in the middle and lower esophagus w/ retrograde flow to the upper esophagus. Recommendations Diet: Regular Textures and Thin Liquids Comment: STOP meal if increased s/s of reflux, sensation of retention, or regurgitation despite use of strategies listed below and resume meal at a later time. Compensatory Strategies: Small Bites, Small Sips, Slow Rate, Alternate bites/solids and sips/liquids and Sitting upright (During and 60min after po intake) Recommend Repeat Modified Barium Swallow: No Need for Skilled Speech Therapy Services: Yes Comment: -Train the patient in use of strategies to decrease risk for aspiration and reflux aspiration. -GERD education. -Train the patient in oropharyngeal exercise program to improve delayed swallow onset and TB retraction (Ashley Mcgraw). Recommended Referrals: GI Consult Education Completed: 1. Described result of evaluation. Status Active ST Patient: Active Contact Information [facility] Speech Therapy:: Diandra Carrion M.A. [facility] Speech-Language Pathologist [facility] [address] [place] [address] [email or web address] [phone]
--- NOTE | 2025-04-25 12:53 | RAD_ITS ---
EXAM: XR Thoracic Spine, 2 Views CLINICAL INDICATION: THORACIC SPINE PAIN TECHNIQUE: Frontal and lateral views of the thoracic spine. COMPARISON: No relevant prior studies available. FINDINGS: VERTEBRAE: Degenerative disc disease and facet arthropathy throughout the thoracic spine. No acute fracture. Normal alignment. DISC SPACES: See above. SOFT TISSUES: Unremarkable.
== END | disposition home or self-care (01) ==
LOC: RAD 12:45
PROVIDERS: PCP Family Medicine; Referring Provider Family Medicine; Visit Provider Family Medicine
DX: R05.9 Cough, unspecified (principal); R13.10 Dysphagia, unspecified; M54.6 Pain in thoracic spine
CPT/HCPCS: 72070; 74230; 92611

== ENCOUNTER → 2025-04-26 | Outpatient (CLI) | payer MEDICARE, SELFPAY ==
[2025-04-26 13:36] LABS: Hematocrit 40.8 % (37-47); Hemoglobin 13.0 g/dL (12.0-15.0); Immature Granulocytes Count 0.020 X10^3/uL (0.0-0.0); Mean Corp Hgb Conc 31.9 g/dL (32-36); Mean Corpuscular Volume 86.1 fL (81-99); Mean Platelet Vol. 9.9 fl (6.2-12.0); NRBC Flagged by Analyzer 0 % (0-5); Platelet Count 262 K/mm3 (150-450); RBC Distribution Width CV 13.4 % (11.6-14.6); RBC Distribution Width SD 42.1 fl (35.1-43.9); Red Blood Count 4.74 M/mm3 (4.2-5.4); White Blood Count 6.6 K/mm3 (4.4-11.0)
[2025-04-26 14:19] LABS: AST(SGOT) 15 U/L (<=31); Alanine Aminotransfer ALT/SGPT 12 U/L (<=34); Albumin, Serum 3.9 g/dL (3.4-4.8); Alkaline Phosphatase 98 U/L (35-104); Anion Gap 7 (5-15); BUN 14 mg/dL (4-19); BUN/Creat Ratio 22.0 RATIO (10-20); Calcium,Total 9.5 mg/dL (7.6-11.0); Carbon Dioxide 29.4 mmol/L (21.0-32.0); Chloride 104 mmol/L (98-108); Globulin 3.3 g/dL (2.2-4.2); Glucose 160 mg/dL (70-99); Magnesium 1.9 mg/dL (1.5-2.2); Potassium 4.9 mmol/L (3.3-5.1)
== END | disposition home or self-care (01) ==
PROVIDERS: Nurse Practitioner Family; PCP Family Medicine; Referring Provider Family Medicine; Visit Provider Family Medicine
DX: R05.9 Cough, unspecified (principal); I49.5 Sick sinus syndrome; I48.0 Paroxysmal atrial fibrillation; E87.1 Hypo-osmolality and hyponatremia; I10 Essential (primary) hypertension; E78.2 Mixed hyperlipidemia; Z95.0 Presence of cardiac pacemaker
CPT/HCPCS: 36415; 80053; 83735; 84443; 85025; 94060; 94726; 94729

== ENCOUNTER → 2025-05-28 | Outpatient (CLI) | payer MEDICARE, SELFPAY ==
--- OUTSIDE RECORDS SUMMARY | 2025-05-28 19:08 | XMS RPT_ITS | CCD ---
Author Organization [facility] Care Team Providers Care Cougar Hunter Name Role Phone GAETANO PALAFOX Unavailable Unavailable VIVIENNE GAETANO Unavailable Unavailable JAMARI, ART F Unavailable Unavailable MAKEDA PALAFOXNETH Unavailable Unavailable VIVIENNE, GAETANO Unavailable Unavailable JAMARI, ART F Unavailable Unavailable KIMO CORREA, TEAGAN J Unavailable Leonor vailable KIMO CORREA, TEAGAN J Unavailable Leonor vailable KIMO CORREA, TEAGAN J Unavailable Leonor vailable KIMO CORREA, TEAGAN J Unavailable Leonor vailable VIVIENNE GAETANO E Unavailable Unavailable VIVIENNE, GAETANO E Unavailable Unavailable LUST, KELLIE Attending Unavailable LUST, KELLIE Primary Care Unavailable LUST, KELLIE Admitting Unavailable Dr. Rian Romero Primary Care Provider Dr. Rian Romero Referring Provider Roof FUEL EFFICIENT AUTOMOBILE DESIGNER, FUEL EFFICIENT AUTOMOBILE DESIGNER-C Rian Crowell Attending Provider Roof FUEL EFFICIENT AUTOMOBILE DESIGNER, FUEL EFFICIENT AUTOMOBILE DESIGNER-C Rian Crowell Referring Provider 1([facility])[phone] Roof FUEL EFFICIENT AUTOMOBILE DESIGNER, FUEL EFFICIENT AUTOMOBILE DESIGNER-C Rian Crowell Other Provider 1([facility])[phone] Mukesh Garcia Attending Provider 1([facility])[phone] Rian Romero Primary Care Provider Dr. Rian Romero Referring Provider 1([facility])[phone] Roof F[employer] E[employer]IENT AUTOMOBILE DESIGNER, FUEL EFFICIENT AUTOMOBILE DESIGNER-Jenny Crowell Attending Provider Dr. Rian Romero Primary Care Provider 1([facility] )[phone] Dr. Rian Romero Referring Provider 1([facility])[phone] Dr. Mukesh Garcia Attending Provider 1([facility])[phone] RIAN ROMERO MD Primary Care Physician Dr. Rian Romero Primary Care Provider [phone] Dr. Rian Romero Referring Provider [phone] RAVEN Mata Attending Provider Radha, Dr. Mayorga Attending Provider [phone] NICK FLETCHER, RIAN Primary Care Unavailable ELOISA FLETCHER, DR ABHI Esposito Attending Amy Gan MD, DR ABHI Esposito Attending Amy Nance MD, RIAN Primary Care Unavailable ELOISA FLETCHER, DR ABHI Esposito Attending Amy Nance MD, RIAN Primary Care Unavailable ELOISA FLETCHER, DR ABHI Esposito Attending Amy Nance MD, RIAN Primary Care Unavailable ELOISA FLETCHER, DR ABHI Esposito Attending Amy Nance MD, RIAN Primary Care Unavailable NICK FLETCHER, RIAN Primary Care Unavailable ELOISA FLETCHER, DR ABHI Esposito Attending Amy Nance MD, RIAN Primary Care Unavailable ELOISA FLETCHER, DR ABHI Esposito Attending Amy Nance MD, RIAN Primary Care Sheryl AMIN MD, DR ABHI Esposito Referring Amy Gan MD, DR ABHI Esposito Admitting Amy Donovan, LYDIA Gibson Consulting Man LEONE, LYDIA Gibson Attending Man AMIN MD, DR ABHI Esposito Referring Amy Gan MD, DR ABHI Esposito Admitting Unavailab Julien, CRISTA Slaughter Consulting Margarita LEONE, CRISTA Slaughter Attending Margarita ROMERO MD, RIAN Primary Care JAMES Delgado MD Attending Sheryl ROMERO MD, RIAN Primary Care Sheryl AMIN MD, DR ABHI Esposito Attending Amy Nance MD, RIAN Primary Care Unavailable ELOISA FLETCHER, DR ABHI Esposito Attending Amy Nance MD, RIAN Primary Care Unavailable Dr. Rian Romero Primary Care Provider Dr. Mukesh Garcia Attending Provider [phone] Rian Romero MD Primary Care Provider Yarelis Sharma Attending Provider [phone] Yarelis Sharma Referring Provider Sahil FLETCHER, Dr. Rajput Attending Provider Nick FLETCHER, Dr. Rian Schultz Attending Provider Nick FLETCHER, Dr. Rian Schultz Referring Provider Radha FLETCHER, Dr. Mayorga Attending Provider [facility] FUEL EFFICIENT AUTOMOBILE DESIGNER-C, [facility] Attending Provider Kiel FLETCHER, Dr. Singh Attending Provider Kiel FLETCHER, Dr. Singh Referring Provider Nick FLETCHER, Dr. Rian Schultz Primary Care Provider [phone] Yarelis Sharma Attending Provider McMorrow FUEL EFFICIENT AUTOMOBILE DESIGNER-C, Jamir Attending Provider McMorrow FUEL EFFICIENT AUTOMOBILE DESIGNER-C, Jamir Referring Provider MD MIGUEL DYSON Attending Unavailable NICK FLETCHER, RIAN [facility] Nick FLETCHER, Dr. Rian Schultz Referring Provider Nick FLETCHER, Dr. Rian Schultz Primary Care Provider Nick FLETCHER, Dr. Rian Schultz Attending Provider Nick FLETCHER, Dr. Rian Schultz Primary Care Provider [phone] Radha FLETCHER, Dr. Mayorga Attending Provider [phone] Nick FLETCHER, Dr. Rian Schultz Referring Provider Dr. Rian Romero MD Primary Care Provider McMorrow FUEL EFFICIENT AUTOMOBILE DESIGNER-C, Jamir Attending Provider McMorrow FUEL EFFICIENT AUTOMOBILE DESIGNER-C, Jamir Referring Provider Nick FLETCHER, Dr. Rian Schultz Primary Care Provider McMorrow FUEL EFFICIENT AUTOMOBILE DESIGNER-C, Jamir Attending Provider McMorrow FUEL EFFICIENT AUTOMOBILE DESIGNER-C, Jamir Referring Provider Nick FLETCHER, Dr. Rian Schultz Primary Care Provider [phone] Radha FLETCHER, Dr. Mayorga Attending Provider Nick FLETCHER, Dr. Rian Schultz Primary Care Physician Elizabeth FUEL EFFICIENT AUTOMOBILE DESIGNER-C, Jamir Attending Physician Radha FLETCHER, Dr. Mayorga Attending Physician Nick FLETCHER, Dr. Rian Schultz Attending Physician Nick FLETCHER, Dr. Rian Schultz Referring Provider Charla FUEL EFFICIENT AUTOMOBILE DESIGNER-CRian Attending Physician [phone] Rian Romero Primary Care Unavailable Mukesh Garcia Attending Unavailable Regulo Baxter Attending Unavailable Schadalberto, Rian E Primary Care Unavailable Yarelis Lorenz Referring Unavailable Schinner, Rian E Primary Care Unavailable Mukesh Garcia Attending Unavailable Schinner, Rian E Primary Care Unavailable Mukesh Garcia Attending Unavailable McMorrow FUEL EFFICIENT AUTOMOBILE DESIGNER, Jamir Attending Unavailable Rian Romero E Primary Care Unavailable McMorrow FUEL EFFICIENT AUTOMOBILE DESIGNER, Jamir Referring Unavailable Schinner, Rian E Referring Unavailable Schinner, Rian E Primary Care Unavailable SchRian glover E Attending Unavailable Schinner, Rian E Referring Unavailable Rian Dunham Attending Unavailable SchinRian garcia Primary Care Unavailable SchRian glover Referring Unavailable Schadalberto, Rian E Primary Care Unavailable Mukesh Garcia Attending Unavailable Schinjose, Rian E Primary Care Unavailable RadhaMukesh lopez Attending Unavailable SchRian glover E Referring Unavailable Yarelis Lorenz Attending Unavailable SchiniRan garcia E Primary Care Unavailable Rian Dunham Attending Unavailable Schinner, Rian E Referring Unavailable Schinner, Rian E Attending Unavailable Schinner, Rian E Primary Care Unavailable Schinner, Rian E Referring Unavailable Schinner, Rian E Primary Care Unavailable Schinjose, Rian E Referring Unavailable SchRian glover Attending Unavailable Rian Romero E Primary Care Unavailable [place]orrow FUEL EFFICIENT AUTOMOBILE DESIGNERJamir Referring Unavailable McMorrow FUEL EFFICIENT AUTOMOBILE DESIGNERJamir Attending Unavailable Rian Romero E Primary Care Unavailable [place]orrow FUEL EFFICIENT AUTOMOBILE DESIGNERJamir Referring Unavailable McMorrow FUEL EFFICIENT AUTOMOBILE DESIGNERJamir Attending Unavailable Rian Romero E Primary Care Unavailable Francisco Dyson Referring Unavailable Francisco Dyson Attending Unavailable Schinjose, Rian E Primary Care Unavailable RadhaMukesh lopez Attending Unavailable Schinner, Rian E Primary Care Unavailable Mukesh Garcia Attending Unavailable Schinner, Rian E Primary Care Unavailable Lorenz, Yarelis Referring Unavailable Lorenz, Yarelis Attending Unavailable Schinner, Rian E Referring Unavailable Schinner, Rian E Primary Care Unavailable Schinner, Rian E Attending Unavailable Schinner, Rian E Primary Care Unavailable Schinner, Rian E Referring Unavailable Schinner, Rian E Attending Unavailable Schinner, Rian E Referring Unavailable Rian Dunham Attending Unavailable Schinner, Rian E Primary Care Unavailable Mukesh Garcia Attending Unavailable Schinner, Rian E Primary Care Unavailable Mellissa Storey Consulting Unavailable Schinner, Rian E Referring Unavailable Schinner, Rian E Attending Unavailable Schinner, Rian E Primary Care Unavailable Schinner, Rian E Attending Unavailable Schinner, Rian E Referring Unavailable Rian Dunham Consulting Unavailable Schadalberto, Rian E Primary Care Unavailable Rian Romero Attending Unavailable Nick FLETCHER, Dr. Rian Schultz Primary Care Physician Radha FLETCHER, Dr. Mayorga Attending Physician Dr. Rian Romero MD Attending Physician Dr. Rian Romero MD Referring Provider Charla FUEL EFFICIENT AUTOMOBILE DESIGNERRian Barreto Attending Physician NP. Mellissa Storey Nurse Practitioner Roof FUEL EFFICIENT AUTOMOBILE DESIGNER-Rian Alvarado Nurse Practitioner Allergies Allergy Classification Reported Allergen(s) Allergy Type Date of Onset Reaction(s) Facility (20 sources) cephalexin; Translations: [CEPHALEXIN] Drug Allergy 6 yeast infection [facility] Repository (3 sources) NEOMYCIN-BACITR ACIN-POLYMYXIN; Translations: [NEOMYCIN-BACIT RACIN-POLYMYXIN ] Propensity to adverse reactions (disorder) 1 AOF [facility] Repository (20 sources) Bacitracin; Translations: [bacitracin] Drug Allergy 2 Cephalexin (substance), Polymyxins (product) [facility] Comment on above: makes wounds worse (20 sources) Neomycin; Translations: [neomycin] Drug Allergy [address] [facility] Comment on above: makes wound worse (11 sources) Polymyxin B Drug Allergy 2 yeast infection [facility] [place] (11 sources) bacitracin / neomycin / polymyxin b; Translations: [bacitracin/oneil mycin/polymyxin B topical] Drug Allergy [facility] (14 sources) Amoxicillin Drug Allergy 5 UNKNOWN [facility] (14 sources) Clavulanate Drug Allergy 5 UNKNOWN [facility] (14 sources) Penicillins Allergy to substance 5 UNKNOWN [facility] (1 source) Amoxicillin Drug Allergy 5 [facility] Repository (1 source) Bacitracin Drug Allergy 5 [facility] Repository (1 source) Clavulanate Drug Allergy 5 [facility] Repository (1 source) Neomycin Drug Allergy 5 [facility] Repository (1 source) Penicillins Drug allergy (disorder) 5 [facility] Repository Medications Current Medications Medication Drug Class(es) Dates Sig (Normalized) Sig (Original) acetaminophen 1000 mg oral tablet (2 sources) Start: 07-27-2023 take 1 tablet by mouth once daily Tylenol Dose : 1,000 mg = 2 tab(s), Oral, TID, not to exceed 3000 mg/day, 0 Refill(s) Start Date: 07/27/23 Status: Ordered Start: 02-16-2023 End: 03-02-2023 take 1 tablet by mouth once daily acetaminophen 500 mg oral tablet Dose : 1,000 mg = 2 tab(s), Oral, TID, PRN as needed for pain, not to exceed 3000 mg/day, X 14 day(s), # 100 tab(s), 0 Refill(s), 03/02/23 7:18:00 AM EDT, Pharmacy: [facility]/pharmacy #[id number], 168, cm, 02/15/23 11:12:00 EDT, Height, kg, 02/15/23 11:12:00 EDT, Dosing Weight Start Date: 02/16/23 Stop Date: 03/02/23 Status: Ordered apixaban 5 mg oral tablet (18 sources) Factor Xa Inhibitor Start: 03-13-2025 take 1 tablet by mouth twice daily Start: 08-16-2024 End: 08-16-2024 take 1 tablet by mouth twice daily Apixaban (Eliquis) 5 mg tablet Discontinued 5 mg PO TWICE A DAY 60 11 August 16, 2024 12:00am August 16, 2024 3:42pm [facility] Check atorvastatin 10 mg oral tablet (20 sources) HMG-CoA Reductase Inhibitor Start: 11-27-2017 End: 06-12-2019 take 1 tablet by mouth once daily Calcium (5 sources) Phosphate Binder, Calcium Start: 08-05-2022 take 1 tablet by mouth once daily Calcium 600+D oral tablet Dose = 1 tab(s), Oral, qDay, 0 Refill(s) Start Date: 08/05/22 Status: Ordered Start: 08-05-2022 take 1 tablet by jose th twice daily Calcium 600+D oral tablet Dose = 1 tab(s), Oral, BID, 0 Refill(s) Start Date: 08/05/22 Status: Ordered calcium carbonate 1500 mg / cholecalciferol 200 unt oral capsule (20 sources) Vitamin D Start: 08-20-2021 Start: 10-18-2018 End: 08-20-2021 Calcium Carbonate-Vitamin D3 (Calcium 600 + D(3)) 600 mg calcium- 200 unit capsule Discontinued NMA PO 0 October 17, 2018 11:00pm August 20, 2021 2:01pm Start: 10-18-2018 End: 08-20-2021 calcium carbonate-vitamin D3 600 mg calcium-200 unit capsule Discontinued CAP PO October 18, 2018 12:00am August 20, 2021 3:01pm 24 hr dilTIAZem hydrochloride 120 mg extended release oral capsule (2 sources) Calcium Channel Vaishali Start: 04-10-2025 take 1 capsule by mouth once daily in the morning, then take 1 capsule by mouth every twenty-four hours docusate sodium 50 mg / sennosides, senior care 8.6 mg oral tablet (1 source) Start: 02-16-2023 End: 02-19-2023 take 1 tablet by mouth twice daily Senokot S 50 mg-8.6 mg oral tablet Dose = 2 tab(s), Oral, BID, Take until first bowel movement, then as needed, X 3 day(s), # 12 tab(s), 0 Refill(s), Pharmacy: [facility]/pharmacy #[id number], 168, cm, 02/15/23 11:12:00 EDT, Height, kg, 02/15/23 11:12:00 EDT, Dosing Weight Start Date: 02/16/23 Stop Date: 02/19/23 Status: Ordered doxycycline hyclate 100 mg oral capsule (20 sources) Tetracycline-c lass Drug Start: 02-16-2023 End: 03-02-2023 doxycycline hyclate 100 mg oral capsule Dose : 100 mg = 1 cap(s), Oral, q12h, X 14 day(s), # 28 cap(s), 0 Refill(s), 03/02/23 7:18:00 AM EDT, Pharmacy: [facility]/pharmacy #[id number], 168, cm, 02/15/23 11:12:00 EDT, Height, 121.8, kg, 02/15/23 11:12:00 EDT, Dosing Weight Start Date: 02/16/23 Stop Date: 03/02/23 Status: Ordered Start: 12-02-2017 End: 12-12-2017 take 1 capsule by mouth twice daily Doxycycline Hyclate 100 mg capsule Discontinued 100 mg PO TWICE A DAY 20 10 December 01, 2017 11:00pm December 10, 2017 11:00pm December 11, 2017 11:05pm Acute sinusitis, unspecified famotidine 20 mg oral tablet (1 source) Histamine-2 Receptor Antagonist Start: 06-22-2023 End: 06-27-2023 famotidine 20 mg oral tablet Dose : 20 mg = 1 tab(s), Oral, BID, # 10 tab(s), 0 Refill(s) Start Date: 06/22/23 Stop Date: 06/27/23 Status: Ordered furosemide 40 mg oral tablet (2 sources) Loop Diuretic Start: 04-10-2025 take 1 tablet by mouth once daily gabapentin 300 mg oral capsule (20 sources) Anti-epileptic Agent Start: 05-01-2024 take 2 capsules by mouth three times daily Start: 06-17-2023 End: 05-01-2024 take 1 capsule by mouth three times daily Gabapentin 300 mg capsule Discontinued 300 mg PO THREE TIMES A DAY June 17, 2023 12:00am May 01, 2024 1:19pm Magnesium (14 sources) Start: 09-14-2024 take 1 tablet by mouth once [facility] Start: 09-14-2024 take 1 tablet by jose th once daily Magnesium 200 mg tablet Active 200 mg PO DAILY September 14, 2024 12:00am Complies with drug therapy Start: 09-14-2024 take 1 tablet by jose th once daily Start: 09-14-2024 take 1 tablet by jose th once daily Magnesium 200 mg tablet Active 200 mg PO DAILY September 14, 2024 12:00am magnesium oxide 250 mg oral tablet (20 sources) Start: 01-17-2023 Magnesium 250 mg tablet Dose : 500 mg = 2 tab(s), Oral, qDay, 0 Refill(s) Start Date: 01/17/23 Status: Ordered Start: 10-18-2018 End: 12-09-2021 take 1 capsule by mouth once daily Magnesium Oxide 400 mg capsule Discontinued 400 mg PO DAILY October 17, 2018 11:00pm December 09, 2021 1:03pm melatonin 5 mg oral capsule (20 sources) Start: 07-25-2024 take 1 capsule by mo [facility] at bedtime as needed for sleep Start: 01-17-2023 melatonin 5 mg oral tablet Dose : 5 mg = 1 tab(s), Oral, qHS, PRN as needed for insomnia, # 60 tab(s), 0 Refill(s) Start Date: 01/17/23 Status: Ordered Start: 08-20-2021 End: 12-09-2021 take 1 tablet by mouth at bedtime Melatonin 5 mg tablet Discontinued 5 mg PO BEDTIME August 20, 2021 12:00am December 09, 2021 1:03pm Start: 10-18-2018 End: 08-20-2021 take 1 tablet by mouth at bedtime as needed Melatonin 3 mg tablet Discontinued 3 mg PO BEDTIME as needed October 17, 2018 11:00pm August 20, 2021 2:00pm Multivitamin preparation (20 sources) Start: 08-20-2021 take 1 tablet by mouth once daily Multivitamin Active 1 TABLET PO DAILY August 20, 2021 3:01pm Start: 08-20-2021 take 1 tablet by jose once daily Multivitamin Active 1 TABLET PO DAILY August 20, 2021 12:00am Start: 08-20-2021 take 1 tablet by jose th once daily Multivitamin Active 1 TABLET PO DAILY August 20, 2021 1:00am Start: 11-06-2015 take 1 tablet by jose th once daily Multivitamin Dose = 1 tab(s), Oral, Daily Start Date: 11/06/15 Status: Ordered Multivitamin tablet (14 sources) Start: 08-20-2021 Start: 08-20-2021 Multivitamin t ablet Active 1 {tbl} PO DAILY August 20, 2021 1:00am Complies with drug therapy Start: 08-20-2021 Start: 08-20-2021 Multivitamin t ablet Active 1 {tbl} PO DAILY August 20, 2021 1:00am omeprazole 40 mg delayed release oral capsule (1 source) Proton Pump Inhibitor Start: 07-26-2023 omeprazole 40 mg oral delayed release capsule Dose : 40 mg = 1 cap(s), Oral, qDay, # 90 cap(s), 0 Refill(s) Start Date: 07/26/23 Status: Ordered oxyCODONE hydrochloride 5 mg oral tablet (1 source) Opioid Agonist Start: 02-16-2023 End: 02-23-2023 take 1-2 tablets by mouth every four hours as needed for pain oxyCODONE 5 mg oral tablet ( IMMEDIATE release ) See Instructions, PRN as needed for pain, 1-2 tab(s) Oral q4h, # 42 tab(s), 0 Refill(s), 02/23/23 7:19:00 AM EDT, Pharmacy: [facility]/pharmacy #[id number], Status post total right knee replacement, 168, cm, 02/15/23 11:12:00 EDT, Height, 121.8, kg, 02/15/23 11:12:00 EDT, Dosing Weight Start Date: 02/16/23 Stop Date: 02/23/23 Status: Ordered predniSONE 20 mg oral tablet (1 source) Start: 06-22-2023 End: 06-27-2023 predniSONE 20 mg oral tablet Dose : 40 mg = 2 tab(s), Oral, qDay, X 5 day(s), # 10 tab(s), 0 Refill(s), 06/27/23 11:05:00 PM EST Start Date: 06/22/23 Stop Date: 06/27/23 Status: Ordered sertraline 50 mg oral tablet (20 sources) Serotonin Reuptake Inhibitor Start: 08-21-2020 take 1 tablet by mouth once daily Start: 11-20-2019 End: 01-22-2020 Sertraline 50 mg tablet Disc ontinued 25 mg PO DAILY November 20, 2019 11:50am January 22, 2020 11:58am Start: 11-20-2019 End: 01-22-2020 take 25 mg by mouth once daily Sertraline Discontinued 25 MG PO DAILY November 20, 2019 12:50pm January 22, 2020 12:58pm Start: 10-18-2018 End: 11-20-2019 take 1 tablet by mouth once daily Sertraline 50 mg tablet Discontinued 50 mg PO DAILY October 17, 2018 11:00pm November 20, 2019 11:50am Vitamin C 25 mg oral tablet, chewable (5 sources) Start: 08-05-2022 Vitamin C 25 m g oral tablet, chewable Dose : 25 mg = 1 tab(s), Chewed, qDay, # 30 tab(s), 0 Refill(s) Start Date: 08/05/22 Status: Ordered Vitamin D3 (12 sources) Start: 08-05-2022 Vitamin D3 Dos e : 25 mcg = 1 tab(s), Oral, qDay, 0 Refill(s) Start Date: 08/05/22 Status: Ordered Start: 08-05-2022 Vitamin D3 Dos e : 25 mcg = 1 tab(s), Oral, q12h, 0 Refill(s) Start Date: 08/05/22 Status: Ordered vitamin E 400 intl units oral capsule (3 sources) Start: 02-15-2023 vitamin E 400 intl units oral capsule Dose : 400 International_Unit = 1 cap(s), Oral, Daily, 0 Refill(s) Start Date: 02/15/23 Status: Ordered Completed/Discontinued Medications Medication Drug Class(es) Dates Sig (Normalized) Sig (Original) amoxicillin 875 mg / clavulanate 125 mg oral tablet (20 sources) Penicillin-class Antibacterial Start: 11-27-2017 End: 10-18-2018 Amoxicillin-Pot Clavulanate (Augmentin) 875-125 mg tablet Discontinued 1 {tbl} PO TWICE A DAY 20 November 26, 2017 11:00pm October 18, 2018 10:17am ascorbic acid 500 mg oral tablet (20 sources) Vitamin C Start: 08-20-2021 End: 06-17-2023 take 1 tablet by mouth once daily Ascorbic Acid (Vitamin C) 500 mg tablet Discontinued 500 mg PO DAILY August 20, 2021 12:00am June 17, 2023 2:29pm celecoxib 200 mg oral capsule (20 sources) Nonsteroidal Anti-inflammatory Drug Start: 11-02-2016 End: 11-27-2017 take 1 capsule by mouth once daily Celecoxib 200 MG capsule Discontinued 200 mg PO DAILY November 01, 2016 11:00pm November 27, 2017 10:48am cholecalciferol 0.025 mg oral capsule (20 sources) Vitamin D Start: 12-09-2021 End: 09-14-2024 take 1 capsule by mouth once daily Cholecalciferol (Vitamin D3) 25 mcg (1,000 unit) capsule Discontinued 25 ug PO DAILY December 08, 2021 11:00pm September 14, 2024 11:06am diazePAM 2 mg oral tablet (20 sources) Benzodiazepine Start: 10-21-2020 End: 11-26-2020 take 1 tablet by mouth once for anxiety Diazepam (Valium) 2 mg tablet Discontinued 2 mg PO ONCE as needed for anxiety 3 0 October 20, 2020 11:00pm November 26, 2020 12:15pm take one tab by mouth 1 hour before imaging and one tab by mouth 30 minutes before imaging study, stop all other benzodiazepans Start: 10-07-2020 End: 08-20-2021 take 1 tablet by mouth twice daily for anxiety Diazepam (Valium) 2 mg tablet Discontinued 2 mg PO TWICE A DAY as needed for anxiety 3 0 October 06, 2020 11:00pm August 20, 2021 2:00pm Claustrophobia Take 1 tablet 1 hour before MRI. Take another tablet 30 minutes before MRI. diclofenac sodium 0.01 mg/mg topical gel (20 sources) Nonsteroidal Anti-inflammatory Drug Start: 03-31-2020 End: 08-21-2020 apply 4 g topically four times daily Diclofenac Sodium (Voltaren) 1 % gel Discontinued 4 g TOPICAL .COMPLEX 350 1 March 30, 2020 11:00pm August 21, 2020 2:29pm 4 grams topical QID; apply to affected knee escitalopram 20 mg oral tablet (20 sources) Serotonin Reuptake Inhibitor Start: 11-02-2016 End: 11-27-2017 take 1 tablet by mouth once daily Escitalopram Oxalate 20 MG tablet Discontinued 20 mg PO DAILY November 01, 2016 11:00pm November 27, 2017 10:48am flecainide acetate 100 mg oral tablet (20 sources) Antiarrhythmic Start: 09-07-2021 End: 09-20-2022 take 1 tablet by mouth every twelve hours Flecainide 100 mg tablet Discontinued 0 .ROUTE .COMPLEX 60 11 September 29, 2021 10:48am September 20, 2022 2:16pm TAKE 1 TABLET BY MOUTH EVERY 12 HOURS Start: 10-18-2018 End: 10-18-2018 take 1 tablet by mouth every twelve hours Flecainide 50 mg tablet Discontinued 50 mg PO Q12H 60 11 October 18, 2018 10:19am October 18, 2018 10:34am Start: 10-18-2018 End: 10-18-2018 Flecainide 100 mg tablet Discontinued 50 mg PO Q12H October 18, 2018 10:14am October 18, 2018 10:20am Start: 10-18-2018 End: 10-18-2018 take 50 mg by mouth every twelve hours Flecainide Discontinued 50 MG PO Q12H October 18, 2018 11:14am October 18, 2018 11:20am Start: 04-19-2018 End: 10-18-2018 take 1 tablet by mouth every twelve hours Flecainide 100 mg tablet Discontinued 100 mg PO Q12H April 18, 2018 11:00pm October 18, 2018 10:18am Start: 11-02-2016 End: 11-27-2017 take 1 tablet by mouth twice daily Flecainide 100 MG tablet Discontinued 100 mg PO TWICE A DAY November 01, 2016 11:00pm November 27, 2017 10:48am fluconazole 150 mg oral tablet (20 sources) Azole Antifungal Start: 12-02-2017 End: 10-18-2018 take 1 tablet by mouth once Fluconazole (Diflucan) 150 mg tablet Discontinued 150 mg PO ONCE 1 0 December 01, 2017 11:00pm October 18, 2018 10:17am as a single dose 2 ml sodium hyaluronate 10 mg/ml prefilled syringe (3 sources) Start: 12-06-2019 End: 12-06-2019 Supartz FX (sodium hyaluronate (viscosup)) 10 mg/mL intra-articular syringe Discontinued 50 MG INTRAARTIC ONCE December 06, 2019 10:35am December 06, 2019 11:05am Start: 11-20-2019 End: 11-20-2019 Supartz FX (sodium hyalurona te (viscosup)) 10 mg/mL intra-articular syringe Discontinued 25 MG INTRAARTIC ONCE November 20, 2019 12:41pm November 20, 2019 12:53pm Start: 11-20-2019 End: 11-20-2019 ORTHOVISC (sodium hyaluronat e (viscosup)) 30 mg/2 mL intra-articular syringe Discontinued 30 MG INTRAARTIC ONCE November 20, 2019 12:41pm November 20, 2019 12:52pm metFORMIN hydrochloride 1000 mg oral tablet (20 sources) Biguanide Start: 11-02-2016 End: 06-17-2023 take 1 tablet by mouth twice daily at mealtime Metformin 1,000 MG tablet Discontinued 1000 mg PO TWICE DAILY WITH MEALS November 01, 2016 11:00pm June 17, 2023 2:29pm 24 hr metoprolol succinate 100 mg extended release oral tablet (20 sources) beta-Adrenergic Vaishali Start: 04-10-2025 End: 04-10-2025 take 2 tablets by mouth once daily Metoprolol Succinate 100 mg tablet extended release 24 hr Discontinued 50 mg PO DAILY April 10, 2025 2:09pm April 10, 2025 2:47pm Start: 04-10-2025 take 1 tablet by jose th every twenty-four hours Start: 03-13-2025 End: 04-10-2025 take 1 tablet by mouth once daily Metoprolol Succinate 100 mg tablet extended release 24 hr Discontinued 100 mg PO DAILY March 13, 2025 12:07pm April 10, 2025 2:10pm Start: 08-16-2024 End: 03-13-2025 take 1 tablet by mouth once daily Metoprolol Succinate 50 mg tablet extended release 24 hr Discontinued 50 mg PO DAILY August 16, 2024 12:00am March 13, 2025 12:07pm Start: 02-16-2023 End: 02-16-2023 take 1 tablet by mouth in the morning Toprol-XL Start: 02/16/23 8:00:00 AM EDT, Dose = 50 mg, = 1 tab(s), Oral, Hold if SBP (mmHg) Start Date: 02/16/23 Stop Date: 02/16/23 Status: Completed Start: 02-15-2023 End: 02-15-2023 take 1 tablet by mouth in the evening Toprol-XL Start: 02/15/23 1:52:00 PM EDT, Dose = 50 mg, = 1 tab(s), Oral, Hold if SBP (mmHg) Start Date: 02/15/23 Stop Date: 02/15/23 Status: Completed Start: 09-20-2022 End: 08-16-2024 take 1 tablet by mouth once daily Metoprolol Tartrate 50 mg tablet Discontinued 50 mg PO DAILY September 20, 2022 2:16pm August 16, 2024 3:58pm Start: 09-09-2022 End: 11-08-2022 Toprol-XL 50 mg oral tablet, extended release Dose : 50 mg = 1 tab(s), Oral, qDayM, # 30 tab(s), 1 Refill(s), Pharmacy: [facility]/pharmacy #[id number], 167.6, cm, 09/05/22 23:39:00 EST, Height Start Date: 09/09/22 Stop Date: 11/08/22 Status: Ordered Start: 09-08-2022 End: 09-08-2022 Toprol-XL Start: 09/08/22 8: 00:00 EST, Dose = 50 mg, = 1 tab(s), Oral, Hold if SBP (mmHg) Start Date: 09/08/22 Stop Date: 09/08/22 Status: Completed Start: 08-05-2022 metoprolol tar trate 50 mg oral tablet Dose : 50 mg = 1 tab(s), Oral, BID, # 60 tab(s), 0 Refill(s) Start Date: 08/05/22 Status: Ordered Start: 08-20-2021 End: 09-20-2022 take 1 tablet by mouth twice daily Metoprolol Tartrate 50 mg tablet Discontinued 50 mg PO TWICE A DAY 180 September 15, 2021 12:37pm December 09, 2021 1:03pm Start: 10-18-2018 End: 08-20-2021 take 1 tablet by mouth twice daily Metoprolol Tartrate 25 mg tablet Discontinued 25 mg PO TWICE A DAY 60 11 June 12, 2019 11:34am August 20, 2021 3:05pm Start: 11-02-2016 End: 10-18-2018 take 2 tablets by mouth twice daily Metoprolol Tartrate 25 MG tablet Discontinued 50 mg PO TWICE A DAY November 01, 2016 11:00pm October 18, 2018 10:18am Start: 11-02-2016 End: 10-18-2018 take 50 mg by mouth twice daily Metoprolol Tartrate Di scontinued 50 MG PO TWICE A DAY November 02, 2016 12:00am October 18, 2018 11:18am Multivitamin With Folic Acid (11 sources) Start: 11-02-2016 End: 11-27-2017 take 1 tablet by mouth once daily Multivitamin With Folic Acid Discontinued 1 TABLET PO DAILY November 02, 2016 10:29am November 27, 2017 11:48am Start: 11-02-2016 End: 11-27-2017 take 1 tablet by mouth once daily Multivitamin With Folic Acid Discontinued 1 TABLET PO DAILY November 01, 2016 11:00pm November 27, 2017 10:48am Start: 11-02-2016 End: 11-27-2017 take 1 tablet by mouth once daily Multivitamin With Folic Acid Discontinued 1 TABLET PO DAILY November 02, 2016 12:00am November 27, 2017 11:48am Multivitamin With Folic Acid 1 TABLET tablet (14 sources) Start: 11-02-2016 End: 11-27-2017 take 1 tablet by mouth once daily Multivitamin With Folic Acid 1 TABLET tablet Discontinued 1 {tbl} PO DAILY November 01, 2016 11:00pm November 27, 2017 10:48am Start: 11-02-2016 End: 11-27-2017 take 1 tablet by mouth once daily Multivitamin With Folic Acid 1 TABLET tablet Discontinued 1 {tbl} PO DAILY November 02, 2016 12:00am November 27, 2017 11:48am Psyllium Seed (Sugar) (11 sources) Start: 11-02-2016 End: 11-27-2017 take 1254 g by mouth once daily Psyllium Seed (Sugar) Discontinued 1254 GM PO DAILY November 02, 2016 10:29am November 27, 2017 11:48am Start: 11-02-2016 End: 11-27-2017 take 1254 g by mouth once daily Psyllium Seed (Sugar) Discontinued 1254 GM PO DAILY November 01, 2016 11:00pm November 27, 2017 10:48am Start: 11-02-2016 End: 11-27-2017 take 1254 g by mouth once daily Psyllium Seed (Sugar) Discontinued 1254 GM PO DAILY November 02, 2016 12:00am November 27, 2017 11:48am Psyllium Seed (Sugar) 575 GM powder (14 sources) Start: 11-02-2016 End: 11-27-2017 Psyllium Seed (Sugar) 575 GM powder Discontinued 1254 g PO DAILY November 01, 2016 11:00pm November 27, 2017 10:48am Start: 11-02-2016 End: 11-27-2017 Psyllium Seed (Sugar) 575 GM powder Discontinued 1254 g PO DAILY November 02, 2016 12:00am November 27, 2017 11:48am rivaroxaban 20 mg oral tablet (20 sources) Factor Xa Inhibitor Start: 11-06-2015 End: 03-13-2025 take 1 tablet by mouth once daily Rivaroxaban (Xarelto) 20 mg tablet Discontinued 20 mg PO DAILY 90 December 01, 2023 10:54am March 13, 2025 12:05pm traMADol hydrochloride 50 mg oral tablet (20 sources) Opioid Agonist Start: 10-18-2018 End: 06-12-2019 take 1 tablet by mouth once daily Tramadol 50 mg tablet Discontinued 50 mg PO DAILY October 17, 2018 11:00pm June 12, 2019 11:33am Problems Active Problems Problem Classification Problem Date Documented Date Episodic/Chronic Cardiac dysrhythmias (20 sources) Paroxysmal atrial fibrillation; Translations: [Paroxysmal atrial fibrillation] Onset: 02-01-2017 Chronic Comment on above: DCCV in ER RFA w/ PVI 02/01/17 Cardiac dysrhythmias (2 sources) Sinus bradycardia; Translations: [Bradycardia, unspecified] Onset: 08-06-2022 Episodic Chronic obstructive pulmonary disease and bronchiectasis (1 source) Chronic obstructive pulmonary disease, unspecified; Translations: [Chronic obstructive pulmonary disease, unspecified] Onset: 05-08-2025 Chronic Coagulation and hemorrhagic disorders (1 source) Blood coagulation disorder; Translations: [Coagulation defect, unspecified] Chronic Conduction disorders (20 sources) H/O: cardiac pacemaker in situ; Translations: [Presence of cardiac pacemaker] Onset: 04-24-2025 3 Chronic Diabetes mellitus with complications (1 source) Type 2 diabetes mellitus with unspecified complications; Translations: [Type 2 diabetes mellitus with unspecified complications] Onset: 11-21-2024 Chronic Diabetes mellitus without complication (3 sources) Type 2 diabetes mellitus without complication; Translations: [Type 2 diabetes mellitus without complications] Onset: 02-15-2023 Chronic Disorders of lipid metabolism (20 sources) Hyperlipidemia; Translations: [Hyperlipidemia, unspecified] Onset: 04-24-2025 Chronic Essential hypertension (20 sources) Essential hypertension; Translations: [Essential (primary) hypertension] Onset: 04-24-2025 Chronic Fluid and electrolyte disorders (20 sources) Hypo-osmolality and or hyponatremia; Translations: [Hypo-osmolality and hyponatremia] Onset: 08-06-2022 Episodic Joint disorders and dislocations; trauma-related (1 source) Unspecified internal derangement of right knee; Translations: [Unspecified internal derangement of right knee] Onset: 10-27-2020 Chronic Joint disorders and dislocations; trauma-related (2 sources) Complex tear of medial meniscus, current injury, right knee, initial encounter; Translations: [Other tear of medial meniscus, current injury, right knee, initial encounter] Onset: 10-27-2020 Episodic Mood disorders (1 source) Depressive disorder; Translations: [Depression, unspecified] Chronic Mycoses (20 sources) Mycosis; Translations: [Candidiasis, unspecified] 04-17-2018 Episodic Nonspecific chest pain (20 sources) Chest pain; Translations: [Chest pain, unspecified] Onset: 08-06-2022 Episodic Osteoarthritis (20 sources) Bilateral primary osteoarthritis of knee; Translations: [Osteoarthritis of right knee joint] Onset: 10-27-2020 Chronic Other aftercare (2 sources) Follow-up orthopedic assessment; Translations: [Aftercare following joint replacement surgery] Chronic Other aftercare (20 sources) Drug therapy finding; Translations: [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 of 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] 04-24-2022 Episodic Other aftercare (1 source) Long-term current use of anticoagulant; Translations: [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 of 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] Episodic Other circulatory disease (1 source) Low blood pressure; Translations: [Hypotension, unspecified] Episodic Other connective tissue disease (3 sources) Artificial knee joint present; Translations: [Presence of right artificial knee joint] Onset: 02-16-2023 Chronic Other connective tissue disease (1 source) Other symptoms and signs involving the musculoskeletal system; Translations: [Other symptoms and signs involving the musculoskeletal system] Episodic Other diseases of veins and lymphatics (18 sources) Vascular insufficiency; Translations: [Venous insufficiency (chronic) (peripheral)] 05-01-2024 Episodic Other nervous system disorders (1 source) Walking disability; Translations: [Difficulty in walking, not elsewhere classified] Chronic Other nervous system disorders (1 source) Other chronic pain; Translations: [Other chronic pain] Onset: 08-22-2024 Chronic Other non-traumatic joint disorders (1 source) Effusion, right knee; Translations: [Effusion, right knee] Onset: 10-27-2020 Episodic Other non-traumatic joint disorders (1 source) Other instability, right knee; Translations: [Other instability, right knee] Onset: 10-27-2020 Episodic Other non-traumatic joint disorders (20 sources) Pain in right knee; Translations: [Right knee pain] 05-25-2022 Episodic Other non-traumatic joint disorders (1 source) Pain in left knee; Translations: [Pain of left knee joint] Episodic Other nutritional; endocrine; and metabolic disorders (20 sources) Obesity; Translations: [Obesity, unspecified] 11-26-2020 Chronic Other nutritional; endocrine; and metabolic disorders (1 source) Body mass index 40+ - severely obese; Translations: [Body mass index (BMI) 40.0-44.9, adult] Chronic Other nutritional; endocrine; and metabolic disorders (1 source) Hypomagnesemia; Translations: [Hypomagnesemia] Chronic Other nutritional; endocrine; and metabolic disorders (1 source) Morbid obesity; Translations: [Morbid (severe) obesity due to excess calories] Chronic Other screening for suspected conditions (not mental disorders or infectious disease) (1 source) Encounter for screening mammogram for malignant neoplasm of breast; Translations: [Encounter for screening mammogram for malignant neoplasm of breast] Onset: 03-21-2025 Episodic Residual codes; unclassified (2 sources) Obstructive sleep apnea syndrome; Translations: [Obstructive sleep apnea (adult) (pediatric)] Chronic Residual codes; unclassified (1 source) Dependence on enabling machine or device; Translations: [Dependence on other enabling machines and devices] Chronic Residual codes; unclassified (1 source) Sleep apnea; Translations: [Sleep apnea, unspecified] Onset: 02-15-2023 Chronic Respiratory failure; insufficiency; arrest (adult) (1 source) Chronic hypercapnic respiratory failure; Translations: [Chronic respiratory failure with hypercapnia] Chronic Skin and subcutaneous tissue infections (20 sources) Abscess; Translations: [Cutaneous abscess, unspecified] 04-17-2018 Episodic Syncope (2 sources) Syncope and collapse; Translations: [Syncope and collapse] Onset: 02-01-2017 Episodic Unclassified (2 sources) Unknown / UNK(Unknown) Onset: 05-23-2017 Unclassified (1 source) Other specified postprocedural states; Translations: [Other specified postprocedural states] Onset: 02-01-2017 Unclassified (1 source) Cough, unspecified; Translations: [Cough, unspecified] Onset: 05-06-2025 Urinary tract infections (1 source) Urinary tract infection, site not specified; Translations: [Urinary tract infection, site not specified] Onset: 02-25-2025 Episodic Past or Other Problems Problem Classification Problem Date Documented Date Episodic/Chronic Genitourinary symptoms and ill-defined conditions (1 source) Unspecified symptoms and signs involving the genitourinary system; Translations: [Unspecified symptoms and signs involving the genitourinary system] Onset: 10-01-2024 Episodic Malaise and fatigue (3 sources) Asthenia; Translations: [Weakness] Onset: 08-22-2024 Episodic Other circulatory disease (1 source) Personal history of other diseases of the circulatory system; Translations: [Personal history of other diseases of the circulatory system] Onset: 02-01-2017 Episodic Residual codes; unclassified (1 source) Localized edema; Translations: [Localized edema] Onset: 06-22-2024 Episodic Spondylosis; intervertebral disc disorders; other back problems (3 sources) Intervertebral disc disorders with radiculopathy, lumbosacral region; Translations: [Dorsalgia, unspecified] Onset: 08-22-2024 Episodic Results Test Name Value Interpretation Reference Range Facility Absolute lymphocyte countOrd ered By: Rian Dunham on 04-26-2025 Lymphocytes Auto (Unsp spec) [#/Vol] 1.85 10*3/uL 0.83-4.51 [facility] [place] Absolute neutrophil countOrd ered By: Rian Dunham on 04-26-2025 Neutrophils (Bld) [#/Vol] 3.9 10*3/uL 2.0-7.7 [facility] Anion gap in Serum or Plasma Ordered By: Rian Dunham on 04-26-2025 Anion gap [Moles/Vol] 7 mmol/L - [facility] Automated lymphocyte count a s percentage of total leukocytesOrdered By: Rian Dunham on 04-26-2025 Lymphocytes/100 WBC Auto (Unsp spec) 28.1 % [facility] BUN/creatinine ratioOrdered By: Rian Dunham on 04-26-2025 Urea nitrogen/Creatinine [Mass ratio] 22.0 mg/mg High - [facility] Basophil percentageOrdered B y: Rian Dunham on 04-26-2025 Basophils/100 WBC (Bld) 0.8 % 0-1 [facility] Bilirubin, totalOrdered By: Rian Dunham on 04-26-2025 Bilirubin [Mass/Vol] 0.61 mg/dL 0.00-1.[address] [facility] CBC W/Diff, Automatedon 04-04 Absolute Lymph 1.85 X10 3/uL Normal 0.83-4.51 [facility] Comment on above: Performed By: #### L [id number], L100.0100, [id number], [id number] ####[facility] [address] [place], [address] Absolute Neut 3.9 X10 3/uL Normal 2.0-7.7 [facility] Comment on above: Performed By: #### L 500.4050, L100.0100, [id number], [id number] ####[facility] [address] [place], [address] Basophils/100 WBC (Bld) 0.8 % Normal 0-1 [facility] Comment on above: Performed By: #### L 500.4050, L100.0100, [id number], [id number] ####[facility] [address] [place], [address] Eosinophils/100 WBC (Bld) 2.6 % Normal 0-5 [facility] Comment on above: Performed By: #### L 500.4050, L100.0100, [id number], [id number] ####[facility] [address] [place], [address] Erythrocyte distribution width (RBC) [Ratio] 13.4 % Normal 11.6-14.6 [facility] Comment on above: Performed By: #### L 500.4050, L100.0100, [id number], [id number] ####[facility] [address] [place], [address] Hematocrit (Bld) [Volume fraction] 40.8 % Normal 37-47 [facility] Comment on above: Performed By: #### L 500.4050, L100.0100, [id number], [id number] ####[facility] [address] [place], [address] Hemoglobin (Bld) [Mass/Vol] 13.0 g/dL Normal 12.0-15.0 [facility] Comment on above: Performed By: #### L 500.4050, L100.0100, [id number], [id number] ####[facility] [address] [place], [address] IG% 0.300 Normal 0.0-0.9 [facility] Comment on above: Result Comment: IG% - Immature Granulocytes (promyelocytes, myelocytes and metamyelocytes) > 1% indicates that a LEFT SHIFT is Present. Performed By: #### L 500.4050, L100.0100, [id number], [id number] ####[facility] [address] [place], [address] Lymphocytes/100 WBC (Bld) 28.1 % Normal 19-41 [facility] Comment on above: Performed By: #### L 500.4050, L100.0100, [id number], [id number] ####[facility] [address] [place], [address] MCH (RBC) [Entitic mass] 27.4 pg Normal 27.0-32.0 [facility] Comment on above: Performed By: #### L 500.4050, L100.0100, [id number], [id number] ####[facility] [address] [place], [address] MCHC (RBC) [Mass/Vol] 31.9 g/dL Low 32-36 [facility] Comment on above: Performed By: #### L 500.4050, L100.0100, [id number], [id number] ####[facility] [address] [place], [address] MCV (RBC) [Entitic vol] 86.1 fL Normal 81-99 [facility] Comment on above: Performed By: #### L 500.4050, L100.0100, [id number], [id number] ####[facility] [address] [place], [address] Monocytes/100 WBC (Bld) 9.3 % Normal 0-10 [facility] Comment on above: Performed By: #### L 500.4050, L100.0100, [id number], [id number] ####[facility] [address] [place], [address] Neutrophils/100 WBC (Bld) 58.9 % Normal 47-70 [facility] Comment on above: Performed By: #### L 500.4050, L100.0100, [id number], [id number] ####[facility] [address] [place], [address] Nucleated RBC (Bld) [#/Vol] 0 10*3/uL Normal 0-5 [facility] Comment on above: Performed By: #### L 500.4050, L100.0100, L501.5200, [id number] ####[facility] [address] [place], [address] Platelet mean volume (Bld) [Entitic vol] 9.9 fL Normal 6.2-12.0 [facility] Comment on above: Performed By: #### L 500.4050, L100.0100, L501.5200, [id number] ####[facility] [address] [place], [address] Platelets (Bld) [#/Vol] 262 10*3/uL Normal 150-450 [facility] Comment on above: Performed By: #### L 500.4050, L100.0100, [id number], [id number] ####[facility] [address] [place], [address] RBC (Bld) [#/Vol] 4.74 10*6/uL Normal 4.2-5.4 [facility] Comment on above: Performed By: #### L 500.4050, L100.0100, [id number], [id number] ####[facility] [address] [place], [address] RDW SD 42.1 fl Normal 35.1-43.9 [facility] Comment on above: Performed By: #### L 500.4050, L100.0100, [id number], [id number] ####[facility] [address] [place], [address] WBC (Bld) [#/Vol] 6.6 10*3/uL Normal 4.4-11.0 [facility] Comment on above: Performed By: #### L 500.4050, L100.0100, [id number], [id number] ####[facility] [address] [place], [address] Carbon dioxide, total [Moles /volume] in Central venous bloodOrdered By: Rian Dunham on 04-26-2025 CO2 [Moles/Vol] 29.4 mmol/L 21.0-32.0 [facility] Chloride assayOrdered By: Susi Dunham on 04-26-2025 Chloride [Moles/Vol] 104 mmol/L 98-[address] [facility] Comprehensive Metabolic Prof ilon 04-26-2025 Albumin [Mass/Vol] 3.9 g/dL Normal 3.4-4.8 [facility] Comment on above: Performed By: #### L 500.4050, L100.0100, L501.5200, [id number] ####[facility] [address] [place], [address] Albumin/Globulin [Mass ratio] 1.2 {ratio} Normal 0.9-2.4 [facility] Comment on above: Performed By: #### L 500.4050, L100.0100, L501.5200, [id number] ####[facility] [address] [place], [address] ALK PHOS 98 U/L Normal 35-104 [facility] Comment on above: Performed By: #### L 500.4050, L100.0100, [id number], [id number] ####[facility] [address] [place], [address] ALT [Catalytic activity/Vol] 12 U/L Normal <=34 [facility] Comment on above: Performed By: #### L 500.4050, L100.0100, L501.5200, [id number] ####[facility] [address] [place], [address] AST [Catalytic activity/Vol] 15 U/L Normal <=31 [facility] Comment on above: Performed By: #### L 500.4050, L100.0100, L501.5200, [id number] ####[facility] [address] [place] [address] Bilirubin [Mass/Vol] 0.61 mg/dL Normal 0.00-1.[address] [facility] Comment on above: Performed By: #### L 500.4050, L100.0100, [id number], [id number] ####[facility] [address] [place], [address] BUN/CRE 22.0 RATIO High 10-20 [facility] Comment on above: Performed By: #### L 500.4050, L100.0100, [id number], [id number] ####[facility] [address] [place], [address] Calcium [Mass/Vol] 9.5 mg/dL Normal 7.6-11.0 [facility] Comment on above: Performed By: #### L 500.4050, L100.0100, L501.5200, [id number] ####[facility] [address] [place], [address] Chloride [Moles/Vol] 104 mmol/L Normal 98-[address] [facility] Comment on above: Performed By: #### L 500.4050, L100.0100, L501.5200, [id number] ####[facility] [address] [place], [address] CO2 [Moles/Vol] 29.4 mmol/L Normal 21.0-32.0 [facility] Comment on above: Performed By: #### L 500.4050, L100.0100, L501.5200, [id number] ####[facility] [address] [place], [address] Creatinine [Mass/Vol] 0.63 mg/dL Low 0.70-1.20 [facility] Comment on above: Performed By: #### L 500.4050, L100.0100, L501.5200, [id number] ####[facility] [address] [place], [address] GAP 7 Normal 5-15 [facility] Comment on above: Performed By: #### L 500.4050, L100.0100, L501.5200, [id number] ####[facility] [address] [place], [address] GFR/1.73 sq M.predicted among non-blacks MDRD (S/P/Bld) [Vol rate/Area] 95 mL/min/{1.73_m2} Normal >60 [facility] Comment on above: Result Comment: mL/m in/1.73m2 CKD-EPI Creatinine Equation (2020) Performed By: #### L 500.4050, L100.0100, L501.5200, L501.9520 ####[facility] [address] [place], [address] Globulin (S) [Mass/Vol] 3.3 g/dL Normal 2.2-4.2 [facility] Comment on above: Performed By: #### L 500.4050, L100.0100, L501.5200, L501.9520 ####[facility] [address] [place], [address] Glucose [Mass/Vol] 160 mg/dL High 70-99 [facility] Comment on above: Performed By: #### L 500.4050, L100.0100, L501.5200, L501.9520 ####[facility] [address] [place] [place], [address] Potassium [Moles/Vol] 4.9 mmol/L Normal 3.3-5.1 [facility] Comment on above: Performed By: #### L 500.4050, L100.0100, L501.5200, L501.9520 ####[facility] [address] [place], [address] Sodium [Moles/Vol] 140 mmol/L Normal 133-145 [facility] Comment on above: Performed By: #### L 500.4050, L100.0100, L501.5200, L501.9520 ####[facility] [address] [place], [address] T PROT 7.2 g/dL Normal 5.9-8.4 [facility] Comment on above: Performed By: #### L 500.4050, L100.0100, L501.5200, L501.9520 ####[facility] [address] [place], [address] Urea nitrogen [Mass/Vol] 14 mg/dL Normal 4-19 [facility] Comment on above: Performed By: #### L 500.4050, L100.0100, L501.5200, L501.9520 ####[facility] [address] [place], [address] Eosinophil percentageOrdered By: Rian Dunham on 04-26-2025 Eosinophils/100 WBC (Bld) 2.6 % 0-5 [facility] Erythrocyte distribution wid th ratioOrdered By: Rian Dunham on 04-26-2025 Erythrocyte distribution width (RBC) [Ratio] 13.4 % 11.6-14.6 [facility] Erythrocyte distribution wid th standard deviationOrdered By: Rian Dunham on 04-26-2025 Erythrocyte distribution width (RBC) [Ratio] 42.1 fl 35.1-43.9 [facility] Glomerular filtration rate ( GFR) estimation/1.73 sq m using serum, plasma, or whole bOrdered By: Rian Dunham on 04-26-2025 GFR/1.73 sq M.predicted among non-blacks MDRD (S/P/Bld) [Vol rate/Area] 95 mL/min/{1.73_m2} >60 [facility] Comment on above: mL/min/1.73m2 CKD-EP I Creatinine Equation (2020) Hematocrit Auto (Bld) [Volum e fraction]Ordered By: Rian Dunham on 04-26-2025 Hematocrit (Bld) [Volume fraction] 40.8 % 37-47 [facility] Hemoglobin measurementOrdere d By: Rina Dunham on 04-26-2025 Hemoglobin (Bld) [Mass/Vol] 13.0 g/dL 12.0-15.0 [facility] Immature granulocytes/100 WB C Auto (Bld)Ordered By: Rian Dunham on 04-26-2025 Immature granulocytes/100 WBC (Bld) 0.300 % 0.0-0.9 [facility] Comment on above: IG% - Immature Granu locytes (promyelocytes, myelocytes and metamyelocytes) > 1% indicates that a LEFT SHIFT is Present. Laboratory - Chemistry and C hemistry - challengeOrdered By: Rian Dunham on 04-26-2025 AST [Catalytic activity/Vol] 15 U/L <32 [facility] MCV (mean corpuscular volume ) determinationOrdered By: Rian Dunham on 04-26-2025 MCV (RBC) [Entitic vol] 86.1 fL 81-99 [facility] Magnesiumon 04-26-2025 Magnesium [Mass/Vol] 1.9 mg/dL Normal 1.5-2.[address] [facility] Comment on above: Performed By: #### L 500.4050, L100.0100, L501.5200, L501.9520 ####[facility] [address] [place], [address] Magnesium measurement (mass/ volume)Ordered By: Rian Dunham on 04-26-2025 Magnesium (Unsp spec) [Mass/Vol] 1.9 mg/dL 1.5-2.2 [facility] Mean corpuscular hemoglobin (MCH) determinationOrdered By: Rian Dunham on 04-26-2025 MCH (RBC) [Entitic mass] 27.4 pg 27.0-32.0 [facility] Mean corpuscular hemoglobin concentration (MCHC) determinationOrdered By: Rian Dunham on 04-26-2025 MCHC (RBC) [Mass/Vol] 31.9 g/dL Low 32-36 [facility] Mean platelet volume determi nationOrdered By: Rian Dunham on 04-26-2025 Platelet mean volume (Bld) [Entitic vol] 9.9 fL 6.2-12.0 [facility] Monocyte percentageOrdered B y: Rian Dunham on 04-26-2025 Monocytes/100 WBC (Bld) 9.3 % 0-10 [facility] Neutrophil percentageOrdered By: Rian Dunham on 04-26-2025 Neutrophils/100 WBC (Bld) 58.9 % 47-70 [facility] Nucleated red blood cell per centageOrdered By: Rian Dunham on 04-26-2025 Nucleated RBC/100 WBC (Bld) [Ratio] 0 % 0-5 [facility] Platelet countOrdered By: Susi Dunham on 04-26-2025 Platelets (Bld) [#/Vol] 262 10*3/uL 150-450 [facility] Potassium measurement (mass/ volume)Ordered By: Rian Dunham on 04-26-2025 Potassium (Unsp spec) [Mass/Vol] 4.9 mmol/L 3.3-5.1 [facility] RBC Auto (Bld) [#/Vol]Ordere d By: Rian Dunham on 04-26-2025 RBC (Bld) [#/Vol] 4.74 10*6/uL 4.2-5.4 [facility] Serum creatinine measurement (mass/volume)Ordered By: Rian Dunham on 04-26-2025 Creatinine [Mass/Vol] 0.63 mg/dL Low 0.70-1.20 [facility] Serum globulin measurementOr dered By: Rian Dunham on 04-26-2025 Globulin (S) [Mass/Vol] 3.3 g/dL 2.2-4.2 [facility] Serum glucose measurement (m ass/volume)Ordered By: Rian Dunham on 04-26-2025 Glucose [Mass/Vol] 160 mg/dL High 70-99 [facility] Serum or plasma alanine holloway otransferase (ALT) measurementOrdered By: Rian Dunham on 04-26-2025 ALT [Catalytic activity/Vol] 12 U/L <35 [facility] Serum or plasma albumin jennifer urement (mass/volume)Ordered By: Rian Dunham on 04-26-2025 Albumin [Mass/Vol] 3.9 g/dL 3.4-4.8 [facility] Serum or plasma albumin/glob ulin mass ratioOrdered By: Rian Dunham on 04-26-2025 Albumin/Globulin [Mass ratio] 1.2 {ratio} 0.9-2.4 [facility] Serum or plasma alkaline georgina sphatase measurementOrdered By: Rian Dunham on 04-26-2025 ALP [Catalytic activity/Vol] 98 U/L 35-104 [facility] Serum or plasma calcium jennifer urement (mass/volume)Ordered By: Rian Dunham on 04-26-2025 Calcium [Mass/Vol] 9.5 mg/dL 7.6-11.0 [facility] Serum or plasma urea nitroge n measurement (mass/volume)Ordered By: Rian Dunham on 04-26-2025 Urea nitrogen [Mass/Vol] 14 mg/dL 4-19 [facility] Sodium levelOrdered By: Rian Dunham on 04-26-2025 Sodium [Moles/Vol] 140 mmol/L 133-145 [facility] TSH DL <= 0.005 mIU/L QnOrde red By: Rian Dunham on 04-26-2025 TSH Qn 3.030 uIU/mL 0.300-4.20 0 [facility] Thyroid Stim Hormone (TSH)on 04-26-2025 TSH 3.030 uIU/mL Normal 0.300-4.20 0 [facility] Comment on above: Performed By: #### L 500.4050, L100.0100, L501.5200, L501.9520 ####[facility] [address] [place], [address] Total proteinOrdered By: Baldomero Dunham on 04-26-2025 Protein [Mass/Vol] 7.2 g/dL 5.9-8.4 [facility] White blood cell (WBC) count Ordered By: Rian Dunham on 04-26-2025 WBC (Bld) [#/Vol] 6.6 10*3/uL 4.4-11.0 [facility] Modified Barium Swallow Stud wendi 04-25-2025 Modified Barium Swallow Study [facility] Speech Pathology [address] [place] [address] Modified Barium Swallow Study MR#: [id number] Acct: [id number] Name: GUADALUPE DAVIS Rep #: [id number] : 1955 69 From: Diandra Carrion M.A., [facility] Modified Barium Swallow Patient Information Study Date: 04/25/25 Study Time: 13:00 Direct Billable Minutes: 68 Total Minutes procedure reportin Diagnosis: Dysphagia R13.10 Referring Physician: Rian Romero Reason for Referral: Pt's PCP referred her for MBSS due to difficulty swallowing solids characterized by sensation of any type of food texture becoming caught in her throat w/ extensive coughing episodes. Liquid washes do not appear to help clear the foods and often make the issue worse. This issue began w/ sudden onset a few months ago and occurs 2-3X daily. Pt reports hx of choking on a chip 6-7 years ago. Pills occ feel stuck in her throat, but will clear w/ liquid washes. Medical History: PMH per EMR review: DM Type 2, A fib, HTN, HLD, Vitamin D deficiency, Former smoker, Sick sinus syndrome, Obesity, Placement of cardiac pacemaker, Hyponatremia. Current Diet Ordered: Regular textures / Thin liquids Dentition: Upper Dentures and Lower Dentures Mental Status: WNL Respiratory Status: Oxygenating on Room Air Penetration-Aspiration Scale Penetration-Aspiration Scale: OBJECTIVE ASSESSMENT OF SWALLOW FUNCTION (QUANTITATIVE ??? PER TRIAL): PENETRATION / ASPIRATION SCALE (PAK): 1 = does not enter airway 2 = enters airway/above vocal folds/ejected 3 = enters airway/above vocal folds/not ejected 4 = enters airway/contacts vocal folds/ejected 5 = enters airway/contacts vocal folds/not ejected 6 = enters airway/below vocal folds/ejected 7 = enters airway/below vocal folds/not ejected despite effort 8 = enters airway/below vocal folds/no effort VIDEOFLOROSCOPIC SCALE SCORE (PAK): Grade I = aspiration of material that has penetrated into the laryngeal vestibule, intact cough reflex Grade II = aspiration < 10 % of the bolus, intact cough reflex Grade III = aspiration of < 10 % of the bolus, reduced cough reflex or aspiration of > 10 % of the bolus, intact cough reflex Grade IV = aspiration of > 10 % of the bolus, reduced cough reflex Penetration-Aspiration Scale Score Thin Liquid via teaspoon: Result: 2= enter airway/above vocal folds/ejected Thin Liquid via teaspoon Trial 2: Result: 2= enter airway/above vocal folds/ejected Thin Liquid via sequential sips: cup: Result: 2= enter airway/above vocal folds/ejected Thin Liquid via sequential sips:straw: Result: 2= enter airway/above vocal folds/ejected Comment: Esophageal screen - Retention in the middle and lower esophagus w/ retrograde flow to the upper esophagus. [place] Thick Liquid via large single sip: cup: Result: 2= enter airway/above vocal folds/ejected Pudding via teaspoon: Result: 1= does not enter airway Comment: Esophageal screen - Complete clearance. 1/2 Cookie: Result: 1= does not enter airway Comment: Esophageal screen - Minimal residue in the middle esophagus. Barium Tablet w/ Water: Result: 1= does not enter airway Comment: Esophageal screen - Complete clearance. Oral Phase Labial Seal: No Labial Escape Tongue Control During Bolus Hold: Posterior escape of greater than half of bolus Bolus Preparation/Mastication: Timely and efficient chewing and mashing Bolus Transport/Lingual Motion: Brisk tongue motion Oral Residue: Trace residue lining oral structures Pharyngeal Phase Initiation of Pharyngeal Swallow: Bolus head in pyriforms Soft Palate Elevation: Trace column of contrast/air between soft palate and pharyngeal wall Laryngeal Elevation: Comp. Superior move thyroid cart w/comp. apprx arytenoid cart-epig pet Anterior Hyoid Excursion: Partial anterior movement Epiglottic Movement: Complete inversion Laryngeal Vestibule Closure at Height of Swallow: Incomplete; narrow column of air/contrast in laryngeal vestibule Pharyngeal Stripping Wave: Present - complete Pharyngoesophageal Segment Opening: Complete distension and complete duration; no obstruction of flow Tongue Base Retraction: Narrow column of contrast between tongue base post. pharyngeal wall Pharyngeal Residue: Trace residue within or on pharyngeal structures Esophageal Phase Esophageal Clearance: Esophageal retention w/ retrograde flow below pharyngoesophageal seg. Diagnosis/Impression Diagnosis: Mild pharyngoesophageal dysphagia R13.14 MBS Impressions: The oral phase is grossly WNL; however, larger boluses did have premature posterior loss to the pharynx. The pharyngeal phase is marked by... -Delayed swallow onset w/ bolus in the pyriform sinuses and even in the laryngeal vestibule as the swallow onset, increasing risk for aspiration during the swallow. Fortunately, the patient has good laryngeal elevation and consistent laryngeal penetr (more content not included)... Normal [facility] Thoracic Spine 2 Viewson Thoracic Spine 2 Views [facility] Imaging Services [address] [place] [address] Thoracic Spine 2 Views MR#: [id number] Acct: [id number] Name: GUADALUPE DAVIS Rep #: [id number] : 1955 F 69 From: Celso Urias MD PCP: Dr. Rian Romero MD Status: REG CLI Study: Thoracic Spine 2 Views Date of Exam: 04/25/25 Exam# [id number] Ordering Dr: Mellissa Storey EXAM: XR Thoracic Spine, 2 Views CLINICAL INDICATION: THORACIC SPINE PAIN TECHNIQUE: Frontal and lateral views of the thoracic spine. COMPARISON: No relevant prior studies available. FINDINGS: VERTEBRAE: Degenerative disc disease and facet arthropathy throughout the thoracic spine. No acute fracture. Normal alignment. DISC SPACES: See above. SOFT TISSUES: Unremarkable. RAD/Thoracic Spine 2 Views IMPRESSION: Degenerative changes thoracic spine as described. Reading Location: [facility] CC: Mellissa Storey; Dr. Rian Romero MD [place] Winder: Signed Normal [facility] Cardiology Visit Reporton Cardiology Visit Report [facility] [address] [place] [address] OFFICE VISIT Date of Service: 04/24/25 MR#: [id number] Acct: [id number] Name: GUADALUPE DAVIS Rep #: [id number] : 1955 Provider: MIKAEL clements Age/Sex: 69/F Location: [facility] Status: Signed with Addenda ADDENDUM by MIKAEL Dunham on 05/07/25 at 1623 Addendum Addendum Details:: Patient states that her weight is 294 rather than 224. 05/07/25 1623 Date Rian Dunham NP cc: * Signed HPI HPI History of Present Illness Details: GUADALUPE DAVIS, is a 69 F who presents to the office today for a follow up visit. She is a lady with a history of paroxysmal atrial fibrillation who has undergone at least 3 cardioversions and 1 ablation procedure. Her ablation was in February 2017 which was successful. She also had an echocardiogram performed at that time in the form of a stress echo which demonstrated normal left ventricular size and function normal RV size and function mildly dilated left atrium and she exercised to 8.8 metabolic equivalents with no evidence of ischemia. She acknowledges history of YOHAN with CPAP therapy. She recently went to see her improvement director and was noted to be in a tachycardic rhythm was sent to the emergency room and was noted to be in atrial flutter with a 2-1 conduction. She underwent synchronized electrocardioversion with 200 J biphasic energy. She successfully converted back to sinus rhythm. She has been doing well on her current medications. Patient was admitted to [facility] on 09/06/2022 for near syncope. She was seen at [facility]. She was then transferred to [facility]. Presyncope lasted approximately 10 seconds. She was noted to have symptomatic bradycardia. EP was consulted. Her metoprolol and flecainide were held. She did have an echocardiogram done which demonstrated an ejection fraction of 55 to 60%, grade 1 diastolic dysfunction. Patient did undergo a pacemaker placement. She was recent seen with pulmonology team who contacted our office expressing concerns regarding elevated heart rate at 140 bpm. Twelve-lead ECG on 04/10/2025 shows atrial fibrillation with a ventricular rate of 108 bpm. She denies chest, arm, jaw, or neck discomfort. She denies palpitations. She acknowledges bilateral lower extremity edema. She denies claudication. She acknowledges shortness breath with activity such as getting out of her chair and walking about her house. This has been ongoing for a year and she feels to be worsening. She denies shortness of breath at rest, orthopnea, cough, or PND. She denies lightheadedness, dizziness, near-syncope, or syncope. She acknowledges fatigue. Intake Vital Signs 04/10/25 08:16 04/24/25 11:22 Height 5 ft 6 in 5 ft 6 in Weight: 224 lb BMI 36.1 BP 109/72 Blood Pressure Location Lt brachial Position Sitting Respiration 18 Pulse 80 Pulse Source Monitor Pulse Oximetry (%) 98 Intake Visit Reasons: 2 W FU Hoop Cutter Required: No Is patient in pain?: No Allergies amoxicillin (From Augmentin) Allergy (Unknown, Verified 04/24/25 15:24) UNKNOWN clavulanic acid (From Augmentin) Allergy (Unknown, Verified 04/24/25 15:24) UNKNOWN Penicillins (PCN) Allergy (Unknown, Verified 04/24/25 15:24) UNKNOWN bacitracin (From Neosporin ([id number])) Adverse Reaction (Intermediate, Verified 04/24/25 15:24) yeast infection neomycin Adverse Reaction (Intermediate, Verified 04/24/25 15:24) yeast infection cephalexin Adverse Reaction (Mild, Verified 04/24/25 15:24) yeast infection Medications ???Medication ???Instructions ???Recorded ???Confirmed ???Type atorvastatin 10 mg tablet (Lipitor) 10 mg PO QDAY #30 tabs 06/12/19 04/24/25 Rx sertraline 50 mg tablet 50 mg PO DAILY 08/21/20 04/24/25 H istory calcium 600 mg (as 1 cap PO DAILY 08/20/21 04/24/25 H istory carbonate)-vitamin D3 5 mcg (200 unit) capsule (Calcium 600 + D(3)) multivitamin 1 tab PO DAILY 08/20/21 04/24/25 H istory gabapentin 300 mg capsule 600 mg PO TID 05/01/24 04/24/25 Hi story melatonin 5 mg capsule 5 mg PO QHS PRN sleep 07/25/24 History magnesium 200 mg tablet 200 mg PO DAILY 09/14/24 04/24/25 History apixaban 5 mg tablet (Eliquis) 5 mg PO BID #60 tabs 03/13/2504/04 Rx diltiazem HCl 120 mg 120 mg PO QAM #90 caps 04/10/25 Rx capsule,extended release 24 hr (Cartia XT) furosemide 40 mg tablet (Lasix) 40 mg PO DAILY #30 tabs 04/10/25 1 Rx metoprolol succinate 100 mg 100 mg PO ONCE 04/10/25 04/24/25 H istory tablet,extended release 24 hr Ejection fraction %: 65 Have you fallen in the past year?: No [facility] Medical History ... Normal [facility] Cardiology Visit Reporton Cardiology Visit Report [facility] [address] [facility] [facility] [place] [address] OFFICE VISIT Date of Service: 04/10/25 MR#: [id number] Acct: [id number] Name: GUADALUPE DAVIS Rep #: [id number] : 1955 Provider: MIKAEL clements Age/Sex: 69/F Location: [facility] Status: Signed HPI HPI History of Present Illness Details: GUADALUPE DAVIS, is a 69 F who presents to the office today for a follow up visit. She is a lady with a history of paroxysmal atrial fibrillation who has undergone at least 3 cardioversions and 1 ablation procedure. Her ablation was in February 2017 which was successful. She also had an echocardiogram performed at that time in the form of a stress echo which demonstrated normal left ventricular size and function normal RV size and function mildly dilated left atrium and she exercised to 8.8 metabolic equivalents with no evidence of ischemia. She acknowledges history of YOHAN with CPAP therapy. She recently went to see her improvement director and was noted to be in a tachycardic rhythm was sent to the emergency room and was noted to be in atrial flutter with a 2-1 conduction. She underwent synchronized electrocardioversion with 200 J biphasic energy. She successfully converted back to sinus rhythm. She has been doing well on her current medications. Patient was admitted to [facility] on 09/06/2022 for near syncope. She was seen at [facility]. She was then transferred to [facility]. Presyncope lasted approximately 10 seconds. She was noted to have symptomatic bradycardia. EP was consulted. Her metoprolol and flecainide were held. She did have an echocardiogram done which demonstrated an ejection fraction of 55 to 60%, grade 1 diastolic dysfunction. Patient did undergo a pacemaker placement. She was recent seen with pulmonology team who contacted our office expressing concerns regarding elevated heart rate at 140 bpm. Twelve-lead ECG on 04/10/2025 shows atrial fibrillation with a ventricular rate of 108 bpm. She denies chest, arm, jaw, or neck discomfort. She denies palpitations. She acknowledges bilateral lower extremity edema. She denies claudication. She acknowledges shortness breath with activity such as getting out of her chair and walking about her house. This has been ongoing for a year and she feels to be worsening. She denies shortness of breath at rest, orthopnea, cough, or PND. She denies lightheadedness, dizziness, near-syncope, or syncope. She acknowledges fatigue. Hypertension (Cardio) Current neurological symptoms: Denies headache(s) or weakness Current cardiovascular symptom: reports fatigue; denies dizziness Current renal disease symptoms: reports fatigue; denies nausea, vomiting or hematuria Most Recent Cardiac Tests: Chest X-Ray 03/12/25 Echocardiogram 07/01/22 Stress Test 09/04/21 Intake Vital Signs 09/17/24 12:17 04/10/25 08:16 Height 5 ft 6 in 5 ft 6 in Weight: 224 lb BMI 36.1 BP 129/89 H Blood Pressure Location Rt brachial Position Sitting Respiration 20 H Pulse 92 Pulse Source Monitor Pulse Oximetry (%) 96 Intake Visit Reasons: Hypertension Hoop Cutter Required: No Is patient in pain?: No Allergies amoxicillin (From Augmentin) Allergy (Unknown, Verified 04/10/25 15:08) UNKNOWN clavulanic acid (From Augmentin) Allergy (Unknown, Verified 04/10/25 15:08) UNKNOWN Penicillins (PCN) Allergy (Unknown, Verified 04/10/25 15:08) UNKNOWN bacitracin (From Neosporin ([id number])) Adverse Reaction (Intermediate, Verified 04/10/25 15:08) yeast infection neomycin Adverse Reaction (Intermediate, Verified 04/10/25 15:08) yeast infection cephalexin Adverse Reaction (Mild, Verified 04/10/25 15:08) yeast infection Medications ???Medication ???Instructions ???Recorded ???Confirmed ???Type atorvastatin 10 mg tablet (Lipitor) 10 mg PO QDAY #30 tabs 06/12/19 04/10/25 Rx sertraline 50 mg tablet 50 mg PO DAILY 08/21/20 04/10/25 H istory calcium 600 mg (as 1 cap PO DAILY 08/20/21 04/10/25 H istory carbonate)-vitamin D3 5 mcg (200 unit) capsule (Calcium 600 + D(3)) multivitamin 1 tab PO DAILY 08/20/21 04/10/25 H istory gabapentin 300 mg capsule 600 mg PO TID 05/01/24 04/10/25 Hi story melatonin 5 mg capsule 5 mg PO QHS PRN sleep 07/25/2402/25 History magnesium 200 mg tablet 200 mg PO DAILY 09/14/24 04/10/25 History apixaban 5 mg tablet (Eliquis) 5 mg PO BID #60 tabs 03/13/2502/25 Rx diltiazem HCl 120 mg 120 mg PO QAM #90 caps 04/10/25 Rx capsule,extended release 24 hr (Cartia XT) furosemide 40 mg tablet (Lasix) 40 mg PO DAILY #30 tabs 04/10/25 1 Rx metoprolol succinate 100 mg 100 mg PO ONCE 04/10/25 04/10/25 H istory tablet,extended release 24 hr Ejection fraction %: 65 Have you fallen in the pa (more content not included)... Normal [facility] Breast imaging reportOrdered By: Damon Merrill on 03-15-2025 Study report [facility] Imaging Services [address] [place], [place] [id number] SCRN MAMM (CAD)W/ADDISON NUNEZ MR#: [id number] Acct: [id number] Name: GUADALUPE DAVIS Rep #: [id number] : 1955 F 69 From: Shivam Merrill MD PCP: Dr. Rian Romero MD Status: RE G CLI Study:SCRN MAMM (CAD)W/ADDISON CAMACHOAT Date of Exa m: 03/14/25 Exam# [id number] Ordering Dr: Rian Romero MD EXAM: SCRN MAMM (CAD)W/ADDISON BILAT DATE: 03/14/2025 CLINICAL HISTORY: F, Age 69 y/o , SCREENING Mother with breast cancer. History of prior left excisional breast biopsy. TECHNIQUE: Procedure Code: BISMWCADBTOM Modality: MG Procedure: SCRN MAMM (CAD)W/ADDISON BILAT COMPARISON: Prior exam(s) dated May 26, 2022.. FINDINGS: TISSUE DENSITY: There are scattered areas of fibroglandular density. Bilateral Breast Mammographic Findings: No significant masses, calcifications or other abnormalities are identified. Stable benign-appearing well-circumscribed nodules in the upper-outer aspects of both breasts. Stable benign-appearing small axillary lymph nodes. A battery pack of a pacemaker device is seen in the left axilla. No suspicious masses, areas of developing architectural distortion, or suspicious calcifications. There has been no significant interval change. BI/SCRN MAMM (CAD)W/ADDISON BILAT IMPRESSION: Stable bilateral screening mammogram. OVERALL FINAL ASSESSMENT BI-RADS 2: BENIGN RECOMMENDATION: Routine annual follow-up in 1 Year A letter with findings and recommendations will be mailed to the patient. Reading Location: [id number] CC: Dr. Rian Romero MD ~ [place]inder: Signed [facility] SCRN MAMM (CAD)W/ADDISON BILATo n 03-14-2025 SCRN MAMM (CAD)W/ADDISON BILAT [facility] Imaging Services [address] [place] [id number] SCRN MAMM (CAD)W/ADDISON BILAT MR#: [id number] Acct: [id number] Name: GUADALUPE DAVIS Rep #: [id number] : 1955 F 69 From: Damon emerson MD PCP: Dr. Rian Romero MD Status: REG CLI Study: SCRN MAMM (CAD)W/ADDISON BILAT Date of Exam: 03/04 07/28 Exam# [id number] Ordering Dr: Rian Romero MD EXAM: SCRN MAMM (CAD)W/ADDISON BILAT DATE: 03/14/2025 CLINICAL HISTORY: F, Age 69 y/o , SCREENING Mother with breast cancer. History of prior left excisional breast biopsy. TECHNIQUE: Procedure Code: BISMWCADBTOM Modality: MG Procedure: SCRN MAMM (CAD)W/ADDISON BILAT COMPARISON: Prior exam(s) dated May 26, 2022.. FINDINGS: TISSUE DENSITY: There are scattered areas of fibroglandular density. Bilateral Breast Mammographic Findings: No significant masses, calcifications or other abnormalities are identified. Stable benign- appearing well-circumscribed nodules in the upper-outer aspects of both breasts. Stable benign-appearing small axillary lymph nodes. A battery pack of a pacemaker device is seen in the left axilla. No suspicious masses, areas of developing architectural distortion, or suspicious calcifications. There has been no significant interval change. BI/SCRN MAMM (CAD)W/ADDISON BILAT IMPRESSION: Stable bilateral screening mammogram. OVERALL FINAL ASSESSMENT BI-RADS 2: BENIGN RECOMMENDATION: Routine annual follow-up in 1 Year A letter with findings and recommendations will be mailed to the patient. Reading Location: [id number] CC: Dr. Rian Romero MD [place]: Signed Normal [facility] Chest PA and Lateralon 03-12 Chest PA and Lateral [facility] Imaging Services [address] [place] [id number] Chest PA and Lateral MR#: [id number] Acct: [id number] Name: GUADALUPE DAVIS Rep #: [id number] : 1955 F 69 From: Yvan Polanco PCP: Dr. Rian Romero MD Status: [facility] Study: Chest PA and Lateral Date of Exam: 03/12/25 Exam# [id number] Ordering Dr: Rian Romero MD PROCEDURE: CHEST PA AND LATERAL 03/12/2025 REASON FOR EXAM: COUGH TECHNIQUE: Procedure Code: RADCXR Modality: DX Procedure: CHEST PA AND LATERAL COMPARISON: 04/24/2020 FINDINGS: Left chest pacer. Mild pulmonary vascular congestion. No focal consolidation. No pleural effusion or pneumothorax. Cardiac silhouette is stable No acute fractures. RAD/Chest PA and Lateral IMPRESSION: Mild pulmonary vascular congestion. No focal consolidation. Reading Location: [id number] CC: Dr. Rian Romero MD [place]: Signed Normal [facility] Urine Cultureon 02-20-2025 URC Mixed Gram Pos Gram Neg Org [place] Count 80,000-100,000 MIXC Mixed contaminants. Submit a new specimen if indicated. Normal [facility] Comment on above: Performed By: #### M 100.2200, L506.1001, L502.0250 #### [facility] Laboratory [address] [place], [address] Absolute lymphocyte countOrd ered By: Rian Romero on 02-19-2025 Lymphocytes Auto (Unsp spec) [#/Vol] 2.06 10*3/uL 0.83-4.51 [facility] Absolute neutrophil countOrd ered By: Rian Romero on 02-19-2025 Neutrophils (Bld) [#/Vol] 4.8 10*3/uL 2.0-7.7 [facility] Anion gap in Serum or Plasma Ordered By: Rian Romero on 02-19-2025 Anion gap [Moles/Vol] 11 mmol/L 5- [facility] Automated lymphocyte count a s percentage of total leukocytesOrdered By: Rian Romero on 02-19-2025 Lymphocytes/100 WBC Auto (Unsp spec) 26.6 % - [facility] BUN/creatinine ratioOrdered By: Rian Romero on 02-19-2025 Urea nitrogen/Creatinine [Mass ratio] 12.1 mg/mg - [facility] Basophil percentageOrdered B y: Rian Romero on 02-19-2025 Basophils/100 WBC (Bld) 0.8 % 0-1 [facility] Bilirubin, totalOrdered By: Rian Romero on 02-19-2025 Bilirubin [Mass/Vol] 0.64 mg/dL 0.00-1.[address] [facility] CBC W/Diff, Automatedon 02-01 Absolute Lymph 2.06 X10 3/uL Normal 0.83-4.51 [facility] Comment on above: Order Comment: Order Date: 11/20/24 Order Info: [id number]- - CBCD Performed By: #### L 500.4050, L500.4100, L501.5200, L501.9985, L100.0100 #### [facility] Laboratory [address] [place], [address] Absolute Neut 4.8 X10 3/uL Normal 2.0-7.7 [facility] Comment on above: Order Comment: Order Date: 11/20/24 Order Info: [id number]- - CBCD Performed By: #### L 500.4050, L500.4100, L501.5200, L501.9985, L100.0100 #### [facility] Laboratory [address] [place], [address] Basophils/100 WBC (Bld) 0.8 % Normal 0-1 [facility] Comment on above: Order Comment: Order Date: 11/20/24 Order Info: [id number]- - CBCD Performed By: #### L 500.4050, L500.4100, L501.5200, L501.9985, L100.0100 #### [facility] Laboratory [address] [place], [address] Eosinophils/100 WBC (Bld) 2.1 % Normal 0-5 [facility] Comment on above: Order Comment: Order Date: 11/20/24 Order Info: [id number] - CBCD Performed By: #### L 500.4050, L500.4100, L501.5200, L501.9985, L100.0100 #### [facility] Laboratory [address] [place], [address] Erythrocyte distribution width (RBC) [Ratio] 13.2 % Normal 11.6-14.6 [facility] Comment on above: Order Comment: Order Date: 11/20/24 Order Info: [id number] - CBCD Performed By: #### L 500.4050, L500.4100, L501.5200, L501.9985, L100.0100 #### [facility] Laboratory [address] [place], [address] Hematocrit (Bld) [Volume fraction] 43.0 % Normal 37-47 [facility] Comment on above: Order Comment: Order Date: 11/20/24 Order Info: [id number] - CBCD Performed By: #### L 500.4050, L500.4100, L501.5200, L501.9985, L100.0100 #### [facility] Laboratory [address] [place], [address] Hemoglobin (Bld) [Mass/Vol] 13.7 g/dL Normal 12.0-15.0 [facility] Comment on above: Order Comment: Order Date: 11/20/24 Order Info: [id number] - CBCD Performed By: #### L 500.4050, L500.4100, L501.5200, L501.9985, L100.0100 #### [facility] Laboratory [address] [place], [address] IG% 0.300 Normal 0.0-0.9 [facility] Comment on above: Order Comment: Order Date: 11/20/24 Order Info: [id number] - CBCD Result Comment: IG% - Immature Granulocytes (promyelocytes, myelocytes and metamyelocytes) > 1% indicates that a LEFT SHIFT is Present. Performed By: #### L 500.4050, L500.4100, L501.5200, L501.9985, L100.0100 #### [facility] Laboratory [address] [place], [address] Lymphocytes/100 WBC (Bld) 26.6 % Normal 19-41 [facility] Comment on above: Order Comment: Order Date: 11/20/24 Order Info: [id number] - CBCD Performed By: #### L 500.4050, L500.4100, L501.5200, L501.9985, L100.0100 #### [facility] Laboratory [address] [place], [address] MCH (RBC) [Entitic mass] 27.5 pg Normal 27.0-32.0 [facility] Comment on above: Order Comment: Order Date: 11/20/24 Order Info: [id number] - CBCD Performed By: #### L 500.4050, L500.4100, L501.5200, L501.9985, L100.0100 #### [facility] Laboratory [address] [place], [address] MCHC (RBC) [Mass/Vol] 31.9 g/dL Low 32-36 [facility] Comment on above: Order Comment: Order Date: 11/20/24 Order Info: [id number] - CBCD Performed By: #### L 500.4050, L500.4100, L501.5200, L501.9985, L100.0100 #### [facility] Laboratory [address] [place], [address] MCV (RBC) [Entitic vol] 86.3 fL Normal 81-99 [facility] Comment on above: Order Comment: Order Date: 11/20/24 Order Info: [id number] - CBCD Performed By: #### L 500.4050, L500.4100, L501.5200, L501.9985, L100.0100 #### [facility] Laboratory [address] [place], [address] Monocytes/100 WBC (Bld) 8.5 % Normal 0-10 [facility] Comment on above: Order Comment: Order Date: 11/20/24 Order Info: [id number] - CBCD Performed By: #### L 500.4050, L500.4100, L501.5200, L501.9985, L100.0100 #### [facility] Laboratory [address] [place], [address] Neutrophils/100 WBC (Bld) 61.7 % Normal 47-70 [facility] Comment on above: Order Comment: Order Date: 11/20/24 Order Info: [id number] - CBCD Performed By: #### L 500.4050, L500.4100, L501.5200, L501.9985, L100.0100 #### [facility] Laboratory [address] [place], [address] Nucleated RBC (Bld) [#/Vol] 0 10*3/uL Normal 0-5 [facility] Comment on above: Order Comment: Order Date: 11/20/24 Order Info: [id number] - CBCD Performed By: #### L 500.4050, L500.4100, L501.5200, L501.9985, L100.0100 #### [facility] Laboratory [address] [place], [address] Platelet mean volume (Bld) [Entitic vol] 10.9 fL Normal 6.2-12.0 [facility] Comment on above: Order Comment: Order Date: 11/20/24 Order Info: [id number] - CBCD Performed By: #### L 500.4050, L500.4100, L501.5200, L501.9985, L100.0100 #### [facility] Laboratory [address] [place], [address] Platelets (Bld) [#/Vol] 295 10*3/uL Normal 150-450 [facility] Comment on above: Order Comment: Order Date: 11/20/24 Order Info: [id number] - CBCD Performed By: #### L 500.4050, L500.4100, L501.5200, L501.9985, L100.0100 #### [facility] Laboratory [address] [place], [address] RBC (Bld) [#/Vol] 4.98 10*6/uL Normal 4.2-5.4 [facility] Comment on above: Order Comment: Order Date: 11/20/24 Order Info: [id number] - CBCD Performed By: #### L 500.4050, L500.4100, L501.5200, L501.9985, L100.0100 #### [facility] Laboratory [address] [place], [address] RDW SD 41.1 fl Normal 35.1-43.9 [facility] Comment on above: Order Comment: Order Date: 11/20/24 Order Info: [id number] - CBCD Performed By: #### L 500.4050, L500.4100, L501.5200, L501.9985, L100.0100 #### [facility] Laboratory [address] [place], [address] WBC (Bld) [#/Vol] 7.7 10*3/uL Normal 4.4-11.0 [facility] Comment on above: Order Comment: Order Date: 11/20/24 Order Info: [id number] - CBCD Performed By: #### L 500.4050, L500.4100, L501.5200, L501.9985, L100.0100 #### [facility] Laboratory [address] [place], [address] Calculated very low density lipoprotein (VLDL) cholesterol measurementOrdered By: Rian Romero on 02-19-2025 Calculated very low density lipoprotein (VLDL) cholesterol measurement 22 mg/dL 5-40 [facility] Carbon dioxide, total [Moles /volume] in Central venous bloodOrdered By: Rian Romero on 02-19-2025 CO2 [Moles/Vol] 27.0 mmol/L 21.0-32.0 [facility] Chloride assayOrdered By: Susi Romero on 02-19-2025 Chloride [Moles/Vol] 101 mmol/L 98-[address] [facility] Comprehensive Metabolic Prof ilon 02-19-2025 Albumin [Mass/Vol] 3.9 g/dL Normal 3.4-4.8 [facility] Comment on above: Order Comment: Order Date: 11/20/24 Order Info: [id number] - CMP Order Info: [id number] - LIPID Order Info: [id number] - MG Performed By: #### L 500.4050, L500.4100, L501.5200, L501.9985, L100.0100 #### [facility] Laboratory [address] [place], [address] Albumin/Globulin [Mass ratio] 1.1 {ratio} Normal 0.9-2.4 [facility] Comment on above: Order Comment: Order Date: 11/20/24 Order Info: [id number] - CMP Order Info: [id number] - LIPID Order Info: [id number] - MG Performed By: #### L 500.4050, L500.4100, L501.5200, L501.9985, L100.0100 #### [facility] Laboratory [address] [place], [address] ALK PHOS 112 U/L High 35-104 [facility] Comment on above: Order Comment: Order Date: 11/20/24 Order Info: [id number]- - CMP Order Info: [id number] - LIPID Order Info: [id number] - MG Performed By: #### L 500.4050, L500.4100, L501.5200, L501.9985, L100.0100 #### [facility] Laboratory [address] [place], [address] ALT [Catalytic activity/Vol] 22 U/L Normal <=34 [facility] Comment on above: Order Comment: Order Date: 11/20/24 Order Info: [id number] - CMP Order Info: [id number] - LIPID Order Info: [id number] - MG Performed By: #### L 500.4050, L500.4100, L501.5200, L501.9985, L100.0100 #### [facility] Laboratory [address] [place], [address] AST [Catalytic activity/Vol] 24 U/L Normal <=31 [facility] Comment on above: Order Comment: Order Date: 11/20/24 Order Info: [id number] - CMP Order Info: [id number] - LIPID Order Info: [id number] - MG Performed By: #### L 500.4050, L500.4100, L501.5200, L501.9985, L100.0100 #### [facility] Laboratory [address] [place], [address] Bilirubin [Mass/Vol] 0.64 mg/dL Normal 0.00-1.[address] [facility] Comment on above: Order Comment: Order Date: 11/20/24 Order Info: [id number] - CMP Order Info: [id number] - LIPID Order Info: [id number] - MG Performed By: #### L 500.4050, L500.4100, L501.5200, L501.9985, L100.0100 #### [facility] Laboratory [address] [place], [address] BUN/CRE 12.1 RATIO Normal 10-20 [facility] Comment on above: Order Comment: Order Date: 11/20/24 Order Info: [id number] - CMP Order Info: [id number] - LIPID Order Info: [id number] - MG Performed By: #### L 500.4050, L500.4100, L501.5200, L501.9985, L100.0100 #### [facility] Laboratory [address] [place], [address] Calcium [Mass/Vol] 9.9 mg/dL Normal 7.6-11.0 [facility] Comment on above: Order Comment: Order Date: 11/20/24 Order Info: [id number] - CMP Order Info: [id number] - LIPID Order Info: [id number] - MG Performed By: #### L 500.4050, L500.4100, L501.5200, L501.9985, L100.0100 #### [facility] Laboratory [address] [place], [address] Chloride [Moles/Vol] 101 mmol/L Normal 98-[address] [facility] Comment on above: Order Comment: Order Date: 11/20/24 Order Info: [id number] - CMP Order Info: [id number] - LIPID Order Info: [id number] - MG Performed By: #### L 500.4050, L500.4100, L501.5200, L501.9985, L100.0100 #### [facility] Laboratory [address] [place], [address] CO2 [Moles/Vol] 27.0 mmol/L Normal 21.0-32.0 [facility] Comment on above: Order Comment: Order Date: 11/20/24 Order Info: [id number] - CMP Order Info: [id number] - LIPID Order Info: [id number] - MG Performed By: #### L 500.4050, L500.4100, L501.5200, L501.9985, L100.0100 #### [facility] Laboratory [address] [place], [address] Creatinine [Mass/Vol] 0.68 mg/dL Low 0.70-1.20 [facility] Comment on above: Order Comment: Order Date: 11/20/24 Order Info: [id number] - CMP Order Info: [id number] - LIPID Order Info: [id number] - MG Performed By: #### L 500.4050, L500.4100, L501.5200, L501.9985, L100.0100 #### [facility] Laboratory [address] [place], [address] GAP 11 Normal 5-15 [facility] Comment on above: Order Comment: Order Date: 11/20/24 Order Info: [id number] - CMP Order Info: [id number] - LIPID Order Info: [id number] - MG Performed By: #### L 500.4050, L500.4100, L501.5200, L501.9985, L100.0100 #### [facility] Laboratory [address] [place], [address] GFR/1.73 sq M.predicted among non-blacks MDRD (S/P/Bld) [Vol rate/Area] 94 mL/min/{1.73_m2} Normal >60 [facility] Comment on above: Order Comment: Order Date: 11/20/24 Order Info: 07- - CMP Order Info: [id number] - LIPID Order Info: [id number] - MG Result Comment: mL/m in/1.73m2 CKD-EPI Creatinine Equation (2020) Performed By: #### L 500.4050, L500.4100, L501.5200, L501.9985, L100.0100 #### [facility] Laboratory [address] [place], [address] Globulin (S) [Mass/Vol] 3.5 g/dL Normal 2.2-4.2 [facility] Comment on above: Order Comment: Order Date: 11/20/24 Order Info: [id number] - CMP Order Info: [id number] - LIPID Order Info: [id number] - MG Performed By: #### L 500.4050, L500.4100, L501.5200, L501.9985, L100.0100 #### [facility] Laboratory [address] [place], [address] Glucose [Mass/Vol] 125 mg/dL High 70-99 [facility] Comment on above: Order Comment: Order Date: 11/20/24 Order Info: [id number]- - CMP Order Info: [id number] - LIPID Order Info: [id number] - MG Performed By: #### L 500.4050, L500.4100, L501.5200, L501.9985, L100.0100 #### [facility] Laboratory [address] [place], [address] Potassium [Moles/Vol] 4.1 mmol/L Normal 3.3-5.1 [facility] Comment on above: Order Comment: Order Date: 11/20/24 Order Info: [id number] - CMP Order Info: [id number] - LIPID Order Info: [id number] - MG Performed By: #### L 500.4050, L500.4100, L501.5200, L501.9985, L100.0100 #### [facility] Laboratory [address] [place], [address] Sodium [Moles/Vol] 140 mmol/L Normal 133-145 [facility] Comment on above: Order Comment: Order Date: 11/20/24 Order Info: 07-1 - CMP Order Info: [id number] - LIPID Order Info: [id number] - MG Performed By: #### L 500.4050, L500.4100, L501.5200, L501.9985, L100.0100 #### [facility] Laboratory [address] [place], [address] T PROT 7.4 g/dL Normal 5.9-8.4 [facility] Comment on above: Order Comment: Order Date: 11/20/24 Order Info: [id number] - CMP Order Info: [id number] - LIPID Order Info: [id number] - MG Performed By: #### L 500.4050, L500.4100, L501.5200, L501.9985, L100.0100 #### [facility] Laboratory [address] [place], [address] Urea nitrogen [Mass/Vol] 8 mg/dL Normal 4-19 [facility] Comment on above: Order Comment: Order Date: 11/20/24 Order Info: [id number] - CMP Order Info: [id number] - LIPID Order Info: [id number] - MG Performed By: #### L 500.4050, L500.4100, L501.5200, L501.9985, L100.0100 #### [facility] Laboratory [address] [place], [place], [address] Eosinophil percentageOrdered By: Rian Romero on 02-19-2025 Eosinophils/100 WBC (Bld) 2.1 % 0-5 [facility] Erythrocyte distribution wid th ratioOrdered By: Rian Romero on 02-19-2025 Erythrocyte distribution width (RBC) [Ratio] 13.2 % 11.6-14.6 [facility] Erythrocyte distribution wid th standard deviationOrdered By: Rian Romero on 02-19-2025 Erythrocyte distribution width (RBC) [Ratio] 41.1 fl 35.1-43.9 [facility] Glomerular filtration rate ( GFR) estimation/1.73 sq m using serum, plasma, or whole bOrdered By: Rian Romero on 02-19-2025 GFR/1.73 sq M.predicted among non-blacks MDRD (S/P/Bld) [Vol rate/Area] 94 mL/min/{1.73_m2} >60 [facility] Comment on above: mL/min/1.73m2 CKD-EP I Creatinine Equation (2020) Hematocrit Auto (Bld) [Volum e fraction]Ordered By: Rian Romero on 02-19-2025 Hematocrit (Bld) [Volume fraction] 43.0 % 37-47 [facility] Hemoglobin A1con 02-19-2025 HbA1c (Bld) [Mass fraction] 6.7 % High <=5.6 [facility] Comment on above: Order Comment: Order Date: 11/20/24Order Info: [id number] - A1C Result Comment: Norm al < 5.7 % Prediabetic 5.7 - 6.4 % Diabetic >or= 6.5 % Please note range changes. Performed By: #### L 500.4050, L500.4100, L501.5200, L501.9985, L100.0100 ####[facility] [address] [place], [address] Hemoglobin A1c percentageOrd ered By: Rian Romero on 02-19-2025 HbA1c (Bld) [Mass fraction] 6.7 % High <5.7 [facility] Comment on above: Normal < 5.7 % Predi abetic 5.7 - 6.4 % Diabetic >or= 6.5 % Please note range changes. Hemoglobin measurementOrdere d By: Rian Romero on 02-19-2025 Hemoglobin (Bld) [Mass/Vol] 13.7 g/dL 12.0-15.0 [facility] Immature granulocytes/100 WB C Auto (Bld)Ordered By: Rian Romero on 02-19-2025 Immature granulocytes/100 WBC (Bld) 0.300 % 0.0-0.9 [facility] Comment on above: IG% - Immature Granu locytes (promyelocytes, myelocytes and metamyelocytes) > 1% indicates that a LEFT SHIFT is Present. LDL calc ser/plasOrdered By: Rian Romero on 02-19-2025 Cholesterol in LDL [Mass/Vol] 63 mg/dL [facility] Comment on above: Lhvmbbyuvr=883-101 m g/dL & Higher Dkwi=682 mg/dL or greaterFriedwald Equation for LDL-C Laboratory - Chemistry and C hemistry - challengeOrdered By: Rian Romero on 02-19-2025 AST [Catalytic activity/Vol] 24 U/L <32 [facility] Lipid Profileon 02-19-2025 CHOL:HDL 2.57 Normal [facility] Comment on above: Order Comment: Order Date: 11/20/24 Order Info: [id number] - CMP Order Info: [id number] - LIPID Order Info: [id number] - MG Performed By: #### L 500.4050, L500.4100, L501.5200, L501.9985, L100.0100 #### [facility] Laboratory [address] [place], [place], [id number] Cholesterol [Mass/Vol] 140 mg/dL Normal <=200 [facility] Comment on above: Order Comment: Order Date: 11/20/24 Order Info: [id number] - CMP Order Info: [id number] - LIPID Order Info: [id number] - MG Result Comment: Chol esterol level, Desirable <200 mg/dL Borderline high cholesterol 200-239 mg/dL High cholesterol >=240 mg/dL Recommendations of the NCEP Adult Treatment Panel for the following risk-cutoff thresholds for the [place] population. Performed By: #### L 500.4050, L500.4100, L501.5200, L501.9985, L100.0100 #### [facility] Laboratory [address] [place], [address] Cholesterol in HDL [Mass/Vol] 54 mg/dL Normal [facility] Comment on above: Order Comment: Order Date: 11/20/24 Order Info: [id number] - CMP Order Info: [id number] - LIPID Order Info: [id number] - MG Result Comment: [place] [employer] Cholesterol Education Program (NCEP) guidelines: <40 mg/dL: Low HDL-cholesterol (major risk factor for CHD) >= 60 mg/dL: High HDL-cholesterol (negative risk factor for CHD) HDL-cholesterol is affected by a number of factors, e.g. smoking, exercise, hormones, sex and age. Performed By: #### L 500.4050, L500.4100, L501.5200, L501.9985, L100.0100 #### [facility] Laboratory [address] [place], [address] Cholesterol in LDL [Mass/Vol] 63 mg/dL Normal [facility] Comment on above: Order Comment: Order Date: 11/20/24 Order Info: [id number] - CMP Order Info: [id number] - LIPID Order Info: [id number] - MG Result Comment: Bord ugnnou=006-799 mg/dL Higher Izyy=984 mg/dL or greater Friedwald Equation for LDL-C Performed By: #### L 500.4050, L500.4100, L501.5200, L501.9985, L100.0100 #### [facility] Laboratory [address] [place], [address] Cholesterol in VLDL [Mass/Vol] 22 mg/dL Normal 5-40 [facility] Comment on above: Order Comment: Order Date: 11/20/24 Order Info: [id number] - CMP Order Info: [id number] - LIPID Order Info: [id number] - MG Performed By: #### L 500.4050, L500.4100, L501.5200, L501.9985, L100.0100 #### [facility] Laboratory [address] [place], [address] Triglyceride [Mass/Vol] 112 mg/dL Normal [facility] Comment on above: Order Comment: Order Date: 11/20/24 Order Info: [id number] - CMP Order Info: [id number] - LIPID Order Info: - MG Result Comment: The drugs N-Acetylcysteine and Metamizole may falsely depress this assay. Normal range: <150 mg/dL Borderline High: 150-199 mg/dL High: 200-499 mg/dL Very High: >500 mg/dL Performed By: #### L 500.4050, L500.4100, L501.5200, L501.9985, L100.0100 #### [facility] [place] Laboratory [address] [place], [address] MCV (mean corpuscular volume ) determinationOrdered By: Rian Romero on 02-19-2025 MCV (RBC) [Entitic vol] 86.3 fL 81-99 [facility] Magnesiumon 02-19-2025 Magnesium [Mass/Vol] 1.9 mg/dL Normal 1.5-2.[address] [facility] Comment on above: Order Comment: Order Date: 11/20/24Order Info: [id number] - CMPOrder Info: [id number] - LIPIDOrder Info: [id number] - MG Performed By: #### L 500.4050, L500.4100, L501.5200, L501.9985, L100.0100 ####[facility] [address] [place], [address] Magnesium measurement (mass/ volume)Ordered By: Rian Romero on 02-19-2025 Magnesium (Unsp spec) [Mass/Vol] 1.9 mg/dL 1.5-2.2 [facility] Mean corpuscular hemoglobin (MCH) determinationOrdered By: Rian Romero on 02-19-2025 MCH (RBC) [Entitic mass] 27.5 pg 27.0-32.0 [facility] Mean corpuscular hemoglobin concentration (MCHC) determinationOrdered By: Rian Romero on 02-19-2025 MCHC (RBC) [Mass/Vol] 31.9 g/dL Low 32-36 [facility] Mean platelet volume determi nationOrdered By: Rian Romero on 02-19-2025 Platelet mean volume (Bld) [Entitic vol] 10.9 fL 6.2-12.0 [facility] Microalb:Creat Ratio,Random URon 02-19-2025 Creatinine [Mass/Vol] 226.00 mg/dL High 28.00- 217. 00 [facility] [place] Comment on above: Order Comment: Order Date: 11/20/24 Order Info: [id number] - MIALB Performed By: #### M 100.2200, L506.1001, L502.0250 #### [facility] Laboratory [address] [place], [address] MALB:CREAT 14.2 mg/g CRE Normal <30 mg/g CRE [facility] Comment on above: Order Comment: Order Date: 11/20/24 Order Info: [id number] - MIALB Performed By: #### M 100.2200, L506.1001, L502.0250 #### [facility] Laboratory [address] [place], [address] MICROALBUMIN,UR 32.1 mg/L Normal <20 mg/L [facility] Comment on above: Order Comment: Order Date: 11/20/24 Order Info: [id number] - MIALB Performed By: #### M 100.2200, L506.1001, L502.0250 #### [facility] [place] Laboratory [address] [place], [address] Monocyte percentageOrdered B y: Rian Romero on 02-19-2025 Monocytes/100 WBC (Bld) 8.5 % 0-10 [facility] Neutrophil percentageOrdered By: Rian Romero on 02-19-2025 Neutrophils/100 WBC (Bld) 61.7 % 47-70 [facility] [place] Nucleated red blood cell per centageOrdered By: Rian Romero on 02-19-2025 Nucleated RBC/100 WBC (Bld) [Ratio] 0 % 0-5 [facility] Platelet countOrdered By: Susi Romero on 02-19-2025 Platelets (Bld) [#/Vol] 295 10*3/uL 150-450 [facility] Potassium measurement (mass/ volume)Ordered By: Rian Romero on 02-19-2025 Potassium (Unsp spec) [Mass/Vol] 4.1 mmol/L 3.3-5.1 [facility] RBC Auto (Bld) [#/Vol]Ordere d By: Rian Romero on 02-19-2025 RBC (Bld) [#/Vol] 4.98 10*6/uL 4.2-5.4 [facility] Random urine creatinine jennifer urement (mass/volume)Ordered By: Rian Romero on 02-19-2025 Creatinine Unsp time (U) [Mass/Vol] 226.00 mg/dL High 28.00-217. 00 [facility] Screening total cholesterol/ high density lipoprotein (HDL) cholesterol ratioOrdered By: Rian Romero on 02-19-2025 Cholesterol.total/Choles terol in HDL [Mass ratio] 2.57 {ratio} [facility] Serum creatinine measurement (mass/volume)Ordered By: Rian Romero on 02-19-2025 Creatinine [Mass/Vol] 0.68 mg/dL Low 0.70-1.20 [facility] Serum globulin measurementOr dered By: Rian Romero on 02-19-2025 Globulin (S) [Mass/Vol] 3.5 g/dL 2.2-4.2 [facility] Serum glucose measurement (m ass/volume)Ordered By: Rian Romero on 02-19-2025 Glucose [Mass/Vol] 125 mg/dL High 70-99 [facility] Serum or plasma alanine holloway otransferase (ALT) measurementOrdered By: Rian Romero on 02-19-2025 ALT [Catalytic activity/Vol] 22 U/L <35 [facility] Serum or plasma albumin jennifer urement (mass/volume)Ordered By: Rian Romero on 02-19-2025 Albumin [Mass/Vol] 3.9 g/dL 3.4-4.8 [facility] Serum or plasma albumin/glob ulin mass ratioOrdered By: iRan Romero on 02-19-2025 Albumin/Globulin [Mass ratio] 1.1 {ratio} 0.9-2.4 [facility] Serum or plasma alkaline georgina sphatase measurementOrdered By: Rian Romero on 02-19-2025 ALP [Catalytic activity/Vol] 112 U/L High 35-104 [facility] Serum or plasma calcium jennifer urement (mass/volume)Ordered By: Rian Romero on 02-19-2025 Calcium [Mass/Vol] 9.9 mg/dL 7.6-11.0 [facility] Serum or plasma cholesterol in HDL measurement (mass/volume)Ordered By: Rian Romero on 02-19-2025 Cholesterol in HDL [Mass/Vol] 54 mg/dL >40 [facility] Comment on above: National Cholesterol Education Program (NCEP) guidelines:<40 mg/dL: Low HDL-cholesterol (major risk factor for CHD)>= 60 mg/dL: High HDL-cholesterol (negative risk factor for CHD)HDL-cholesterol is affected by a number of factors, e.g. smoking, exercise, hormones, sex and age. Serum or plasma cholesterol measurement (mass/volume)Ordered By: Rian Romero on 02-19-2025 Cholesterol [Mass/Vol] 140 mg/dL <201 [facility] Comment on above: Cholesterol level, D esirable <200 mg/dLBorderline high cholesterol 200-239 mg/dLHigh cholesterol >=240 mg/dLRecommendations of the NCEP Adult Treatment Panel for the following risk-cutoff thresholds for the [place] population. Serum or plasma urea nitroge n measurement (mass/volume)Ordered By: Rain Romero on 02-19-2025 Urea nitrogen [Mass/Vol] 8 mg/dL 4-19 [facility] Sodium levelOrdered By: Rian Romero on 02-19-2025 Sodium [Moles/Vol] 140 mmol/L 133-145 [facility] Total proteinOrdered By: Baldomero Romero on 02-19-2025 Protein [Mass/Vol] 7.4 g/dL 5.9-8.4 [facility] Triglycerides measurementOrd ered By: Rian Romero on 02-19-2025 Triglyceride [Mass/Vol] 112 mg/dL <199 [facility] Comment on above: The drugs N-Acetylcy steine and Metamizole may falsely depress this assay. Normal range: <150 mg/dLBorderline High: 150-199 mg/dLHigh: 200-499 mg/dLVery High: >500 mg/dL Urine albumin measurement wi detection limit of 20 mg/L or less (mass/volume)Ordered By: Rian Romero on 02-19-2025 Albumin DL <= 20 mg/L (U) [Mass/Vol] 32.1 mg/L <20 mg/L [facility] Urine cultureOrdered By: Baldomero Romero on 02-19-2025 Bacteria identified Cx Nom (U) Mixed Gram Pos & Gram Neg Org Abnormal [facility] Bacteria identified Cx Nom (U) Mixed Gram Pos & Gram Neg Org Abnormal [facility] Vitamin D,25 Hydroxyon 02-19 Vitamin D 25-OH 35.5 ng/mL Normal 30-100 [facility] Comment on above: Order Comment: Order Date: 11/20/24 Order Info: [id number] - CMP Order Info: [id number] - LIPID Order Info: [id number] - MG Result Comment: Pamela min D Status Deficiency: <20 ng/mL (50nmol/L) Insufficiency: 20-30 ng/mL (50-75 nmol/L) Sufficiency: 30-100 ng/mL (75-250 nmol/L) Toxicity: >100 ng/mL (>250 nmol/L) Performed By: #### M 100.2200, L506.1001, L502.0250 #### [facility] Laboratory [facility] [address] [place], [place], [id number] White blood cell (WBC) count Ordered By: Rian Romero on 02-19-2025 WBC (Bld) [#/Vol] 7.7 10*3/uL 4.4-11.0 [facility] PT D/C Summary (1)on 025 PT D/C Summary (1) [facility] Physical Therapy [facility] [address] [place] [address] / REHABILITATION SERVICES DISCHARGE SUMMARY MR#: [id number] Acct: [id number] Name: GUADALUPE DAVIS Rep #: [id number] : 1955 69 From: Matthew Monet PT, Cert. MD Paeg, OCS Referring Dr.: Jamir Johnson Status: R EG RCR Insurance[facility] [employer] [facility] Discharge Summary D/C summary: It has been my pleasure to treat GUADALUPE DAVIS referred by MIKAEL Champagne, with the diagnosis of LEG WEAKNESS for a total of 9 visit(s). Discharge Date: 12/20/24 Please see the following information for a summary of their discharge status. Subjective Subjective: PT is helping some Plan to use silver sneaker Pain Bilateral Back: Pain Intensity (Out of 10): 3 Overall Improvement % Improvement: 30 Objective Objective/Function: POSTURE: mild forward posture ,hips/knees flexed GAIT: ambulates with 2 point gait slow chichi shuffles unsteady with cane ( uses rollator at home) BALANCE: fair with cane AROM: supine knee flexion 5-105 degrees supine flexion FLEXABILITY: hamstrings mod tight MMT: ( peak force) quads right 28.1 ,left 27.2 , hamstrings right 36.7 ,left 34..2 ,hip flexion right 27.9 ,left 26.1 Goals Goal 1:: Patient to be I with HEP for strengthening Goal Progress: Progressing Goal 2:: Patient to improve CATSIBE score by 5 points to decrease risk of falls Goal Progress: Progressing Goal 3:: Patient to improve peak force quads/hams/hip by 5-10# to improve gait Goal Progress: Goal Met Goal 4:: Patient to improve LFES score by 5 points to improve QOL and gait Goal Progress: Progressing Goal 5:: Patient to demonstrate 50% improvement with less pain and improved function with gait Plan Plan: D/C TO HEP D/C Information Discharge Comments: -Silver sneakers - water ex's d/c sentence: If there are questions or concerns regarding this patient's physical therapy, please feel free to call me at [phone]. Thank you for the referral of this patient. Sincerely, Matthew Monet, PT, Cert MDT, OCS Balance/Gait/Functional tests Balance/Special Test Scores CATSIB Score (Max score 120 seconds): 55 Lower Extremity Functional Score: 12 Improvement % Improvement: 30 12/20/24 1655 CC: Jamir MAC [employer]-C McMorrow; Dr. Rian Romero MD SUDHAKAR Signed Normal [facility] Absolute lymphocyte countOrd ered By: Rian Romero on 11-16-2024 Lymphocytes Auto (Unsp spec) [#/Vol] 1.47 10*3/uL 0.83-4.51 [facility] Absolute neutrophil countOrd ered By: Rian Romero on 11-16-2024 Neutrophils (Bld) [#/Vol] 3.3 10*3/uL 2.0-7.7 [facility] Anion gap in Serum or Plasma Ordered By: Rian Romero on 11-16-2024 Anion gap [Moles/Vol] 10 mmol/L 5-15 [facility] Automated lymphocyte count a s percentage of total leukocytesOrdered By: Rian Romero on 11-16-2024 Lymphocytes/100 WBC Auto (Unsp spec) 26.9 % 19-41 [facility] BUN/creatinine ratioOrdered By: Rian Romero on 11-16-2024 Urea nitrogen/Creatinine [Mass ratio] 19.7 mg/mg 10-20 [facility] Basophil percentageOrdered B y: Rian Romero on 11-16-2024 Basophils/100 WBC (Bld) 1.1 % High 0-1 [facility] Bilirubin Test strip Ql (U)O rdered By: Rian Romero on 11-16-2024 Bilirubin Ql (U) Negative Negative [facility] Bilirubin, totalOrdered By: Rian Romero on 11-16-2024 Bilirubin [Mass/Vol] 0.53 mg/dL 0.00-1.[address] [facility] CBC W/Diff, Automatedon 05-07 09-2024 Absolute Lymph 1.47 X10 3/uL Normal 0.83-4.51 [facility] Comment on above: Order Comment: Order Date: 07/07/24Order Info: [id number] - CBCD Performed By: #### L 500.4100, L100.0100, L501.5200, L500.4050, L501.9985 ####[facility] [address] [place], [address] Absolute Neut 3.3 X10 3/uL Normal 2.0-7.7 [facility] Comment on above: Order Comment: Order Date: 07/07/24Order Info: [id number]- - CBCD Performed By: #### L 500.4100, L100.0100, L501.5200, L500.4050, L501.9985 ####[facility] [address] [place], [address] Basophils/100 WBC (Bld) 1.1 % High 0-1 [facility] Comment on above: Order Comment: Order Date: 07/07/24Order Info: [id number]- - CBCD Performed By: #### L 500.4100, L100.0100, L501.5200, L500.4050, L501.9985 ####[facility] [address] [place], [address] Eosinophils/100 WBC (Bld) 2.2 % Normal 0-5 [facility] Comment on above: Order Comment: Order Date: 07/07/24Order Info: [id number] - CBCD Performed By: #### L 500.4100, L100.0100, L501.5200, L500.4050, L501.9985 ####[facility] [address] [place], [address] Erythrocyte distribution width (RBC) [Ratio] 14.0 % Normal 11.6-14.6 [facility] Comment on above: Order Comment: Order Date: 07/07/24Order Info: [id number] - CBCD Performed By: #### L 500.4100, L100.0100, L501.5200, L500.4050, L501.9985 ####[facility] [address] [place], [address] Hematocrit (Bld) [Volume fraction] 38.7 % Normal 37-47 [facility] Comment on above: Order Comment: Order Date: 07/07/24Order Info: [id number] - CBCD Performed By: #### L 500.4100, L100.0100, L501.5200, L500.4050, L501.9985 ####[facility] [address] [place], [address] Hemoglobin (Bld) [Mass/Vol] 12.4 g/dL Normal 12.0-15.0 [facility] Comment on above: Order Comment: Order Date: 07/07/24Order Info: [id number] - CBCD Performed By: #### L 500.4100, L100.0100, L501.5200, L500.4050, L501.9985 ####[facility] [address] [place], [address] IG% 0.400 Normal 0.0-0.9 [facility] Comment on above: Order Comment: Order Date: 07/07/24Order Info: [id number] - CBCD Result Comment: IG% - Immature Granulocytes (promyelocytes, myelocytes and metamyelocytes) > 1% indicates that a LEFT SHIFT is Present. Performed By: #### L 500.4100, L100.0100, L501.5200, L500.4050, L501.9985 ####[facility] [address] [place], [address] Lymphocytes/100 WBC (Bld) 26.9 % Normal 19-41 [facility] Comment on above: Order Comment: Order Date: 07/07/24Order Info: [id number] - CBCD Performed By: #### L 500.4100, L100.0100, L501.5200, L500.4050, L501.9985 ####[facility] [address] [place], [address] MCH (RBC) [Entitic mass] 27.8 pg Normal 27.0-32.0 [facility] Comment on above: Order Comment: Order Date: 07/07/24Order Info: [id number] - CBCD Performed By: #### L 500.4100, L100.0100, L501.5200, L500.4050, L501.9985 ####[facility] [address] [place], [address] MCHC (RBC) [Mass/Vol] 32.0 g/dL Normal 32-36 [facility] Comment on above: Order Comment: Order Date: 07/07/24Order Info: [id number] - CBCD Performed By: #### L 500.4100, L100.0100, L501.5200, L500.4050, L501.9985 ####[facility] [address] [place], [address] MCV (RBC) [Entitic vol] 86.8 fL Normal 81-99 [facility] Comment on above: Order Comment: Order Date: 07/07/24Order Info: [id number] - CBCD Performed By: #### L 500.4100, L100.0100, L501.5200, L500.4050, L501.9985 ####[facility] [address] [place], [address] Monocytes/100 WBC (Bld) 10.1 % High 0-10 [facility] Comment on above: Order Comment: Order Date: 07/07/24Order Info: [id number] - CBCD Performed By: #### L 500.4100, L100.0100, L501.5200, L500.4050, L501.9985 ####[facility] [address] [place], [address] Neutrophils/100 WBC (Bld) 59.3 % Normal 47-70 [facility] Comment on above: Order Comment: Order Date: 07/07/24Order Info: [id number] - CBCD Performed By: #### L 500.4100, L100.0100, L501.5200, L500.4050, L501.9985 ####[facility] [address] [place], [address] Nucleated RBC (Bld) [#/Vol] 0 10*3/uL Normal 0-5 [facility] Comment on above: Order Comment: Order Date: 07/07/24Order Info: [id number] - CBCD Performed By: #### L 500.4100, L100.0100, L501.5200, L500.4050, L501.9985 ####[facility] [address] [place], [address] Platelet mean volume (Bld) [Entitic vol] 10.5 fL Normal 6.2-12.0 [facility] Comment on above: Order Comment: Order Date: 07/07/24Order Info: [id number] - CBCD Performed By: #### L 500.4100, L100.0100, L501.5200, L500.4050, L501.9985 ####[facility] [address] [place], [address] Platelets (Bld) [#/Vol] 282 10*3/uL Normal 150-450 [facility] Comment on above: Order Comment: Order Date: 07/07/24Order Info: [id number] - CBCD Performed By: #### L 500.4100, L100.0100, L501.5200, L500.4050, L501.9985 ####[facility] [address] [place], [address] RBC (Bld) [#/Vol] 4.46 10*6/uL Normal 4.2-5.4 [facility] Comment on above: Order Comment: Order Date: 07/07/24Order Info: 0184-1 - CBCD Performed By: #### L 500.4100, L100.0100, L501.5200, L500.4050, L501.9985 ####[facility] [address] [place], [place], [phone]) RDW SD 44.4 fl High 35.1-43.9 [facility] Comment on above: Order Comment: Order Date: 07/07/24Order Info: 0184-1 - CBCD Performed By: #### L 500.4100, L100.0100, L501.5200, L500.4050, L501.9985 ####[facility] [address] [place], [place], [phone] WBC (Bld) [#/Vol] 5.5 10*3/uL Normal 4.4-11.0 [facility] Comment on above: Order Comment: Order Date: 07/07/24Order Info: 0184-1 - CBCD Performed By: #### L 500.4100, L100.0100, L501.5200, L500.4050, L501.9985 ####[facility] [address] [place], [place], [address] Calculated very low density lipoprotein (VLDL) cholesterol measurementOrdered By: Rian Romero on 11-16-2024 Calculated very low density lipoprotein (VLDL) cholesterol measurement 16 mg/dL 5-40 [facility] Carbon dioxide, total [Moles /volume] in Central venous bloodOrdered By: Rian Romero on 11-16-2024 CO2 [Moles/Vol] 26.8 mmol/L 21.0-32.0 [facility] Chloride assayOrdered By: Susi Romero on 11-16-2024 Chloride [Moles/Vol] 102 mmol/L 98-[address] [facility] Comprehensive Metabolic Prof ilon 11-16-2024 Albumin [Mass/Vol] 4.0 g/dL Normal 3.4-4.8 [facility] Comment on above: Order Comment: Order Date: 07/07/24Order Info: [id number] - CMPOrder Info: [id number] - LIPIDOrder Info: [id number] - MG Performed By: #### L 500.4100, L100.0100, L501.5200, L500.4050, L501.9985 ####[facility] [place] [address] [place], [address] Albumin/Globulin [Mass ratio] 1.2 {ratio} Normal 0.9-2.4 [facility] [place] Comment on above: Order Comment: Order Date: 07/07/24Order Info: [id number] - CMPOrder Info: [id number] - LIPIDOrder Info: [id number] - MG Performed By: #### L 500.4100, L100.0100, L501.5200, L500.4050, L501.9985 ####[facility] [place] [address] [place], [address] ALK PHOS 91 U/L Normal 35-104 [facility] [place] Comment on above: Order Comment: Order Date: 07/07/24Order Info: [id number] - CMPOrder Info: [id number] - LIPIDOrder Info: [id number] - MG Performed By: #### L 500.4100, L100.0100, L501.5200, L500.4050, L501.9985 ####[facility] [address] [place], [address] ALT [Catalytic activity/Vol] 16 U/L Normal <=34 [facility] [place] Comment on above: Order Comment: Order Date: 07/07/24Order Info: [id number] - CMPOrder Info: [id number] - LIPIDOrder Info: [id number] - MG Performed By: #### L 500.4100, L100.0100, L501.5200, L500.4050, L501.9985 ####[facility] [address] [place], [address] AST [Catalytic activity/Vol] 21 U/L Normal <=31 [facility] [place] Comment on above: Order Comment: Order Date: 07/07/24Order Info: [id number] - CMPOrder Info: [id number] - LIPIDOrder Info: [id number] - MG Performed By: #### L 500.4100, L100.0100, L501.5200, L500.4050, L501.9985 ####[facility] [address] [place], [address] Bilirubin [Mass/Vol] 0.53 mg/dL Normal 0.00-1.[address] [facility] Comment on above: Order Comment: Order Date: 07/07/24Order Info: [id number] - CMPOrder Info: [id number] - LIPIDOrder Info: [id number] - MG Performed By: #### L 500.4100, L100.0100, L501.5200, L500.4050, L501.9985 ####[facility] [place] [address] [place], [address] BUN/CRE 19.7 RATIO Normal 10-20 [facility] [place] Comment on above: Order Comment: Order Date: 07/07/24Order Info: [id number] - CMPOrder Info: [id number] - LIPIDOrder Info: [id number] - MG Performed By: #### L 500.4100, L100.0100, L501.5200, L500.4050, L501.9985 ####[facility] [place] [address] [place], [address] Calcium [Mass/Vol] 9.6 mg/dL Normal 7.6-11.0 [facility] Comment on above: Order Comment: Order Date: 07/07/24Order Info: [id number] - CMPOrder Info: [id number] - LIPIDOrder Info: [id number] - MG Performed By: #### L 500.4100, L100.0100, L501.5200, L500.4050, L501.9985 ####[facility] [address] [place], [address] Chloride [Moles/Vol] 102 mmol/L Normal 98-[address] [facility] Comment on above: Order Comment: Order Date: 07/07/24Order Info: [id number] - CMPOrder Info: [id number] - LIPIDOrder Info: [id number] - MG Performed By: #### L 500.4100, L100.0100, L501.5200, L500.4050, L501.9985 ####[facility] [place] [address] [place], [address] CO2 [Moles/Vol] 26.8 mmol/L Normal 21.0-32.0 [facility] [place] Comment on above: Order Comment: Order Date: 07/07/24Order Info: [id number] - CMPOrder Info: [id number] - LIPIDOrder Info: [id number] - MG Performed By: #### L 500.4100, L100.0100, L501.5200, L500.4050, L501.9985 ####[facility] [address] [place], [address] Creatinine [Mass/Vol] 0.66 mg/dL Low 0.70-1.20 [facility] Comment on above: Order Comment: Order Date: 07/07/24Order Info: [id number] - CMPOrder Info: [id number] - LIPIDOrder Info: [id number] - MG Performed By: #### L 500.4100, L100.0100, L501.5200, L500.4050, L501.9985 ####[facility] [address] [place], [address] GAP 10 Normal 5-15 [facility] [place] Comment on above: Order Comment: Order Date: 07/07/24Order Info: [id number] - CMPOrder Info: [id number] - LIPIDOrder Info: [id number] - MG Performed By: #### L 500.4100, L100.0100, L501.5200, L500.4050, L501.9985 ####[facility] [place] [address] [place], [address] GFR/1.73 sq M.predicted among non-blacks MDRD (S/P/Bld) [Vol rate/Area] 94 mL/min/{1.73_m2} Normal >60 [facility] [place] Comment on above: Order Comment: Order Date: 07/07/24Order Info: [id number] - CMPOrder Info: [id number] - LIPIDOrder Info: [id number] - MG Result Comment: mL/m in/1.73m2 CKD-EPI Creatinine Equation (2020) Performed By: #### L 500.4100, L100.0100, L501.5200, L500.4050, L501.9985 ####[facility] [place] [address] [place], [address] Globulin (S) [Mass/Vol] 3.4 g/dL Normal 2.2-4.2 [facility] Comment on above: Order Comment: Order Date: 07/07/24Order Info: [id number] - CMPOrder Info: [id number] - LIPIDOrder Info: [id number] - MG Performed By: #### L 500.4100, L100.0100, L501.5200, L500.4050, L501.9985 ####[facility] [place] [address] [place], [address] Glucose [Mass/Vol] 128 mg/dL High 70-99 [facility] Comment on above: Order Comment: Order Date: 07/07/24Order Info: [id number] - CMPOrder Info: [id number] - LIPIDOrder Info: [id number] - MG Performed By: #### L 500.4100, L100.0100, L501.5200, L500.4050, L501.9985 ####[facility] [address] [place], [address] Potassium [Moles/Vol] 4.2 mmol/L Normal 3.3-5.1 [facility] Comment on above: Order Comment: Order Date: 07/07/24Order Info: [id number] - CMPOrder Info: [id number] - LIPIDOrder Info: [id number] - MG Performed By: #### L 500.4100, L100.0100, L501.5200, L500.4050, L501.9985 ####[facility] [address] [place], [address] Sodium [Moles/Vol] 138 mmol/L Normal 133-145 [facility] Comment on above: Order Comment: Order Date: 07/07/24Order Info: [id number] - CMPOrder Info: [id number] - LIPIDOrder Info: [id number] - MG Performed By: #### L 500.4100, L100.0100, L501.5200, L500.4050, L501.9985 ####[facility] [place] [address] [place], [address] T PROT 7.4 g/dL Normal 5.9-8.4 [facility] [place] Comment on above: Order Comment: Order Date: 07/07/24Order Info: [id number] - CMPOrder Info: [id number] - LIPIDOrder Info: [id number] - MG Performed By: #### L 500.4100, L100.0100, L501.5200, L500.4050, L501.9985 ####[facility] [address] [place], [address] Urea nitrogen [Mass/Vol] 13 mg/dL Normal 4-19 [facility] [place] Comment on above: Order Comment: Order Date: 07/07/24Order Info: [id number] - CMPOrder Info: [id number] - LIPIDOrder Info: [id number] - MG Performed By: #### L 500.4100, L100.0100, L501.5200, L500.4050, L501.9985 ####[facility] [address] [place], [place], [id number] Eosinophil percentageOrdered By: Rian Romero on 11-16-2024 Eosinophils/100 WBC (Bld) 2.2 % 0-5 [facility] [place] Erythrocyte distribution wid th ratioOrdered By: Rian Romero on 11-16-2024 Erythrocyte distribution width (RBC) [Ratio] 14.0 % 11.6-14.6 [facility] [place] Erythrocyte distribution wid th standard deviationOrdered By: Rian Romero on 11-16-2024 Erythrocyte distribution width (RBC) [Ratio] 44.4 fl High 35.1-43.9 [facility] [place] Glomerular filtration rate ( GFR) estimation/1.73 sq m using serum, plasma, or whole bOrdered By: Rian Romero on 11-16-2024 GFR/1.73 sq M.predicted among non-blacks MDRD (S/P/Bld) [Vol rate/Area] 94 mL/min/{1.73_m2} >60 [facility] [place] Comment on above: mL/min/1.73m2 CKD-EP I Creatinine Equation (2020) Hematocrit Auto (Bld) [Volum e fraction]Ordered By: Rian Romero on 11-16-2024 Hematocrit (Bld) [Volume fraction] 38.7 % 37-47 [facility] [place] Hemoglobin A1con 11-16-2024 HbA1c (Bld) [Mass fraction] 6.7 % High <=5.6 [facility] [place] Comment on above: Order Comment: Order Date: 07/07/24Order Info: [id number] - A1C Result Comment: Norm al < 5.7 % Prediabetic 5.7 - 6.4 % Diabetic >or= 6.5 % Please note range changes. Performed By: #### L 500.4100, L100.0100, L501.5200, L500.4050, L501.9985 ####[facility] [address] [place], [place], [id number] Hemoglobin A1c percentageOrd ered By: Rian Romero on 11-16-2024 HbA1c (Bld) [Mass fraction] 6.7 % High <5.7 [facility] [place] Comment on above: Normal < 5.7 % Predi abetic 5.7 - 6.4 % Diabetic >or= 6.5 % Please note range changes. Hemoglobin measurementOrdere d By: Rian Romero on 11-16-2024 Hemoglobin (Bld) [Mass/Vol] 12.4 g/dL 12.0-15.0 [facility] [place] Immature granulocytes/100 WB C Auto (Bld)Ordered By: Rian Romero on 11-16-2024 Immature granulocytes/100 WBC (Bld) 0.400 % 0.0-0.9 [facility] [place] Comment on above: IG% - Immature Granu locytes (promyelocytes, myelocytes and metamyelocytes) > 1% indicates that a LEFT SHIFT is Present. Ketones Test strip Ql (U)Ord ered By: Rian Romero on 11-16-2024 Ketones Ql (U) Negative Negative [facility] [place] LDL calc ser/plasOrdered By: Rian Romero on 11-16-2024 Cholesterol in LDL [Mass/Vol] 69 mg/dL [facility] [place] Comment on above: Wnrcyljzxb=472-560 m g/dL & Higher Iqlx=111 mg/dL or greater Laboratory - Chemistry and C hemistry - challengeOrdered By: Rian Romero on 11-16-2024 AST [Catalytic activity/Vol] 21 U/L <32 [facility] [place] Lipid Profileon 11-16-2024 CHOL:HDL 2.52 Normal [facility] [place] Comment on above: Order Comment: Order Date: 07/07/24Order Info: [id number] - CMPOrder Info: [id number] - LIPIDOrder Info: [id number] - MG Performed By: #### L 500.4100, L100.0100, L501.5200, L500.4050, L501.9985 ####[facility] [address] [place], [place], [id number] Cholesterol [Mass/Vol] 141 mg/dL Normal <=200 [facility] Comment on above: Order Comment: Order Date: 07/07/24Order Info: [id number] - CMPOrder Info: [id number] - LIPIDOrder Info: [id number] - MG Result Comment: Chol esterol level, Desirable <200 mg/dL Borderline high cholesterol 200-239 mg/dL High cholesterol >=240 mg/dL Recommendations of the NCEP Adult Treatment Panel for the following risk-cutoff thresholds for the [place] population. Performed By: #### L 500.4100, L100.0100, L501.5200, L500.4050, L501.9985 ####[facility] [address] [place], [address] Cholesterol in HDL [Mass/Vol] 56 mg/dL Normal [facility] [place] Comment on above: Order Comment: Order Date: 07/07/24Order Info: [id number] - CMPOrder Info: [id number] - LIPIDOrder Info: [id number] - MG Result Comment: [place] [employer] Cholesterol Education Program (NCEP) guidelines: <40 mg/dL: Low HDL-cholesterol (major risk factor for CHD) >= 60 mg/dL: High HDL-cholesterol (negative risk factor for CHD) HDL-cholesterol is affected by a number of factors, e.g. smoking, exercise, hormones, sex and age. Performed By: #### L 500.4100, L100.0100, L501.5200, L500.4050, L501.9985 ####[facility] [place] [address] [place], [address] Cholesterol in LDL [Mass/Vol] 69 mg/dL Normal [facility] [place] Comment on above: Order Comment: Order Date: 07/07/24Order Info: [id number] - CMPOrder Info: [id number] - LIPIDOrder Info: [id number] - MG Result Comment: Bord oetqku=189-692 mg/dL Higher Gzdh=295 mg/dL or greater Performed By: #### L 500.4100, L100.0100, L501.5200, L500.4050, L501.9985 ####[facility] [address] [place], [address] Cholesterol in VLDL [Mass/Vol] 16 mg/dL Normal 5-40 [facility] [place] Comment on above: Order Comment: Order Date: 07/07/24Order Info: [id number] - CMPOrder Info: [id number] - LIPIDOrder Info: [id number] - MG Performed By: #### L 500.4100, L100.0100, L501.5200, L500.4050, L501.9985 ####[facility] [address] [place], [address] Triglyceride [Mass/Vol] 81 mg/dL Normal [facility] Comment on above: Order Comment: Order Date: 07/07/24Order Info: [id number] - CMPOrder Info: [id number] - LIPIDOrder Info: [id number] - MG Result Comment: The drugs N-Acetylcysteine and Metamizole may falsely depress this assay. Normal range: <150 mg/dL Borderline High: 150-199 mg/dL High: 200-499 mg/dL Very High: >500 mg/dL Performed By: #### L 500.4100, L100.0100, L501.5200, L500.4050, L501.9985 ####[facility] [address] [place], [address] MCV (mean corpuscular volume ) determinationOrdered By: Rian Romero on 11-16-2024 MCV (RBC) [Entitic vol] 86.8 fL 81-99 [facility] Magnesiumon 11-16-2024 Magnesium [Mass/Vol] 1.9 mg/dL Normal 1.5-2.[address] [facility] Comment on above: Order Comment: Order Date: 07/07/24Order Info: [id number] - CMPOrder Info: [id number] - LIPIDOrder Info: [id number] - MG Performed By: #### L 500.4100, L100.0100, L501.5200, L500.4050, L501.9985 ####[facility] [address] [place], [address] Magnesium measurement (mass/ volume)Ordered By: Rian Romero on 11-16-2024 Magnesium (Unsp spec) [Mass/Vol] 1.9 mg/dL 1.5-2.2 [facility] Mean corpuscular hemoglobin (MCH) determinationOrdered By: Rian Romero on 11-16-2024 MCH (RBC) [Entitic mass] 27.8 pg 27.0-32.0 [facility] [place] Mean corpuscular hemoglobin concentration (MCHC) determinationOrdered By: Rian Romero on 11-16-2024 MCHC (RBC) [Mass/Vol] 32.0 g/dL 32-36 [facility] Mean platelet volume determi nationOrdered By: Rian Romero on 11-16-2024 Platelet mean volume (Bld) [Entitic vol] 10.5 fL 6.2-12.0 [facility] Microscopic analysis of urin e for red blood cells (RBC)Ordered By: Rian Romero on 11-16-2024 Microscopic analysis of urine for red blood cells (RBC) 0 SEEN /hpf 0-5 [facility] [place] Monocyte percentageOrdered B y: Rian Romero on 11-16-2024 Monocytes/100 WBC (Bld) 10.1 % High 0-10 [facility] Mucus LM Ql (Urine sed)Order ed By: Rian Romero on 11-16-2024 Mucus Ql (Urine sed) 0 SEEN /hpf [facility] Neutrophil percentageOrdered By: Rian Romero on 11-16-2024 Neutrophils/100 WBC (Bld) 59.3 % 47-70 [facility] Nitrite Test strip Ql (U)Ord ered By: Rian Romero on 11-16-2024 Nitrite Ql (U) Negative Negative [facility] Nucleated red blood cell per centageOrdered By: Rian Romero on 11-16-2024 Nucleated RBC/100 WBC (Bld) [Ratio] 0 % 0-5 [facility] Platelet countOrdered By: Susi Romero on 11-16-2024 Platelets (Bld) [#/Vol] 282 10*3/uL 150-450 [facility] Potassium measurement (mass/ volume)Ordered By: Rian Romero on 11-16-2024 Potassium (Unsp spec) [Mass/Vol] 4.2 mmol/L 3.3-5.1 [facility] Protein Test strip Ql (U)Ord ered By: Rian Romero on 11-16-2024 Protein Ql (U) Negative Negative [facility] RBC Auto (Bld) [#/Vol]Ordere d By: Rian Romero on 11-16-2024 RBC (Bld) [#/Vol] 4.46 10*6/uL 4.2-5.4 [facility] Screening total cholesterol/ high density lipoprotein (HDL) cholesterol ratioOrdered By: Rian Romero on 11-16-2024 Cholesterol.total/Choles terol in HDL [Mass ratio] 2.52 {ratio} [facility] Serum creatinine measurement (mass/volume)Ordered By: Rian Romero on 11-16-2024 Creatinine [Mass/Vol] 0.66 mg/dL Low 0.70-1.20 [facility] Serum globulin measurementOr dered By: Rian Romero on 11-16-2024 Globulin (S) [Mass/Vol] 3.4 g/dL 2.2-4.2 [facility] Serum glucose measurement (m ass/volume)Ordered By: Rian Romero on 11-16-2024 Glucose [Mass/Vol] 128 mg/dL High 70-99 [facility] Serum or plasma alanine holloway otransferase (ALT) measurementOrdered By: Rian Romero on 11-16-2024 ALT [Catalytic activity/Vol] 16 U/L <35 [facility] [place] Serum or plasma albumin jennifer urement (mass/volume)Ordered By: Rian Romero on 11-16-2024 Albumin [Mass/Vol] 4.0 g/dL 3.4-4.8 [facility] Serum or plasma albumin/glob ulin mass ratioOrdered By: Rian Romero on 11-16-2024 Albumin/Globulin [Mass ratio] 1.2 {ratio} 0.9-2.4 [facility] [place] Serum or plasma alkaline georgina sphatase measurementOrdered By: Rian Romero on 11-16-2024 ALP [Catalytic activity/Vol] 91 U/L 35-104 [facility] Serum or plasma calcium jennifer urement (mass/volume)Ordered By: Rian Romero on 11-16-2024 Calcium [Mass/Vol] 9.6 mg/dL 7.6-11.0 [facility] Serum or plasma cholesterol in HDL measurement (mass/volume)Ordered By: Rian Romero on 11-16-2024 Cholesterol in HDL [Mass/Vol] 56 mg/dL >40 [facility] Comment on above: National Cholesterol Education Program (NCEP) guidelines:<40 mg/dL: Low HDL-cholesterol (major risk factor for CHD)>= 60 mg/dL: High HDL-cholesterol (negative risk factor for CHD)HDL-cholesterol is affected by a number of factors, e.g. smoking, exercise, hormones, sex and age. Serum or plasma cholesterol measurement (mass/volume)Ordered By: Rian Romero on 11-16-2024 Cholesterol [Mass/Vol] 141 mg/dL <201 [facility] Comment on above: Cholesterol level, D esirable <200 mg/dLBorderline high cholesterol 200-239 mg/dLHigh cholesterol >=240 mg/dLRecommendations of the NCEP Adult Treatment Panel for the following risk-cutoff thresholds for the [place] population. Serum or plasma urea nitroge n measurement (mass/volume)Ordered By: Rian Romero on 11-16-2024 Urea nitrogen [Mass/Vol] 13 mg/dL 4-19 [facility] Sodium levelOrdered By: Rian Romero on 11-16-2024 Sodium [Moles/Vol] 138 mmol/L 133-145 [facility] Squamous epithelial cells de tection in urine sediment by light microscopyOrdered By: Rian Romero on 11-16-2024 Epithelial cells.squamous LM Ql (Urine sed) 0-5 SEEN /hpf 5-10 [facility] Total proteinOrdered By: Baldomero Romero on 11-16-2024 Protein [Mass/Vol] 7.4 g/dL 5.9-8.4 [facility] Triglycerides measurementOrd ered By: Rian Romero on 11-16-2024 Triglyceride [Mass/Vol] 81 mg/dL <199 [facility] Comment on above: The drugs N-Acetylcy steine and Metamizole may falsely depress this assay. Normal range: <150 mg/dLBorderline High: 150-199 mg/dLHigh: 200-499 mg/dLVery High: >500 mg/dL Urinalysis, Completeon 11-16 WBC 0-5 SEEN Normal 0-5 [facility] Comment on above: Order Comment: CLEAN CATCH Performed By: #### L 506.1001, L400.0001 ####[facility] [address] [place], [address] BACTERIA 1+ /hpf Normal None Seen [facility] Comment on above: Order Comment: CLEAN CATCH Performed By: #### L 506.1001, L400.0001 ####[facility] [address] [place], [address] EPI,SQUAMOUS 0-5 SEEN Normal 5-10 [facility] Comment on above: Order Comment: CLEAN CATCH Performed By: #### L 506.1001, L400.0001 ####[facility] [address] [place], [address] Mucus Ql (Urine sed) 0 SEEN Normal [facility] Comment on above: Order Comment: CLEAN CATCH Performed By: #### L 506.1001, L400.0001 ####[facility] [address] [place], [address] RBC 0 SEEN Normal 0-5 [facility] Comment on above: Order Comment: CLEAN CATCH Performed By: #### L 506.1001, L400.0001 ####[facility] [address] [place], [address] Urine clarityOrdered By: Baldomero Romero on 11-16-2024 Clarity (U) Sl. Cloudy Clear [facility] Urine color determinationOrd ered By: Rian Romero on 11-16-2024 Color (U) Yellow Yellow [facility] Urine glucose detectionOrder ed By: Rian Romero on 11-16-2024 Glucose Ql (U) Normal mg/dl Normal [facility] Urine leukocyte esterase det ection by dipstickOrdered By: Rian Romero on 11-16-2024 Leukocyte esterase Test strip Ql (U) Negative Negative [facility] Urine pHOrdered By: Rian glover on 11-16-2024 pH (U) 6.0 [pH] 5.0 - 8.0 [facility] Urine sediment bacteria coun t by microscopy (number/high power field)Ordered By: Rian Romero on 11-16-2024 Bacteria LM.HPF (Urine sed) [#/Area] 1 /[HPF] None Seen [facility] Urine specific gravity measu rementOrdered By: Rian Romero on 11-16-2024 Specific gravity (U) [Rel density] 1.015 1.002-1.03 0 [facility] Urine urobilinogen measureme ntOrdered By: Rian Romero on 11-16-2024 Urobilinogen Ql (U) Normal mg/dl Normal [facility] Vitamin D,25 Hydroxyon 11-16 Vitamin D 25-OH 33.0 ng/mL Normal 30-100 [facility] Comment on above: Order Comment: Order Date: 07/07/24Order Info: [id number] - CMPOrder Info: [id number] - LIPIDOrder Info: [id number] - MG Result Comment: Pamela min D Status Deficiency: <20 ng/mL (50nmol/L) Insufficiency: 20-30 ng/mL (50-75 nmol/L) Sufficiency: 30-100 ng/mL (75-250 nmol/L) Toxicity: >100 ng/mL (>250 nmol/L) Performed By: #### L 506.1001, L400.0001 ####[facility] [id number] [place], [address] White blood cell (WBC) count Ordered By: Rian Romero on 11-16-2024 WBC (Bld) [#/Vol] 5.5 10*3/uL 4.4-11.0 [facility] White blood cell countOrdere d By: Rian Romero on 11-16-2024 White blood cell count 0-5 SEEN /hpf 0-5 [facility] Inital Evaluation (1) - PTon 11-05-2024 Inital Evaluation (1) - PT [facility] Physical Therapy [facility] [address] [place] [address]. [address] [place] [address] / REHABILITATION SERVICES INITIAL EVALUATION MR#: [id number] Acct: [id number] Name: GUADALUPE DAVIS Rep #: [id number] : 1955 69 From: Natalee Loyola PT. MD Page, OCS Referring Dr.: Jamir Johnson NP Status: R EG RCR Insurance: ANTH MEDICARE S[employer] SELF PAY INSURANCE Patient's Visit Information Visit Information Visit Information: GUADALUPE DAVIS is a 69 year old F referred to Physical Therapy by MIKAEL Champagne with a diagnosis of LEG WEAKNESS. Date of Evaluation: 11/05/24 Physical Therapist: Matthew Monet PT, Cert [place], OCS Visit Plan Frequency: 2x /Week Duration: 6 Weeks Plan: PT INTERVENTIONS BLE STRENGTHENING ,FUNCTIONAL STRENGTHENING ,BALANCE TRAINING AND ENDURANCE PROGRAM Subjective Subjective: This 69 y/o female presents to physical therapy leg weakness . Patient seen DR and recommended PT with weakness in legs. Patient used cane today but uses rollator at home. Patient seen DR for routine visit blood work A1C .Patient has h/o fall 3 weeks mechanical fall . Patient has pacemaker ,TKA . Patient denies paresthesia in feet due to neuropathy .Patient has edema in legs.Patient has some lumbar pain . Patient did injection epidural injection September 17. Patient lives 1 story home with 4 steps with rails. Patient walk in shower. Patient is able dress except with compression socks and pulling up pants. Patient sleeping good. Patient assist with cooking and daughters does cleaning. Patient denies SOB. Patient feels unsteady with gait . Patient condition affects QOL and function. SOCIAL VOCATION: RETIRED Pain Bilateral Back: Pain Intensity (Out of 10): 3 Pain Intensity Range: 10 Objective Objective: POSTURE: mild forward posture ,hips/knees flexed GAIT: ambulates with 2 point gait slow chichi shuffles unsteady with cane ( uses rollator at home) BALANCE: fair with cane AROM: supine knee flexion 5-105 degrees supine flexion FLEXABILITY: hamstrings mod tight MMT: ( peak force) quads right 15.1 ,left 14.2 , hamstrings right 13.5 ,left 14.2 ,hip flexion right 16.9 ,left 15.1 Balance/Special Test Scores CATSIB Score (Max score 120 seconds): 57 Lower Extremity Functional Score: 16 Goals Goal 1:: Patient to be I with HEP for strengthening Goal Time Frame: 4-6 Weeks Goal 2:: Patient to improve CATSIBE score by 5 points to decrease risk of falls Goal Time Frame: 4-6 Weeks Goal 3:: Patient to improve peak force quads/hams/hip by 5-10# to improve gait Goal Time Frame: 4-6 Weeks Goal 4:: Patient to improve LFES score by 5 points to improve QOL and gait Goal Time Frame: 4-6 Weeks Goal 5:: Patient to demonstrate 50% improvement with less pain and improved function with gait Goal Time Frame: 4-6 Weeks Rehabilitation Potential Physical Therapy Diagnosis: This patient has BLE weakness with decrease balance and gait impairments risk for falls thus benefit PT Rehabilitation Potential: Fair Anticipated Interventions Patient/Client Instruction: Educate patient on: Condition and Plan of Care For the Purpose of:: To decrease pain, To improve muscle performance and motor function, To improve ability to perform ADL's, To increase tolerance to activity/condition/positi on, To improve ability of physical actions for home/community/work/leisu re, To increase flexibility/ROM, To improve endurance, To improve balance and To improve tolerance to ADL's Therapeutic Exercise to Include: Strength training, Endurance training, Balance training and Gait and locomotor training Comment: BLE For the Purpose of:: To improve muscle performance and motor function, To improve ability to perform ADL's, To increase tolerance to activity/condition/positi on, To improve ability of physical actions for home/community/work/leisu re, To improve gait and locomotor functions, To increase flexibility/ROM, To improve endurance, To reduce risk of recurrence, To improve health and function and To improve tolerance to ADL's Text: Thank you for the opportunity to evaluate your patient. For Medicare and Medicare HMO plans, please review the plan of care and approve it. It will need to be FAXED BACK to us at [phone] for Medicare purposes. For Medicare only, by signing this I certify the plan of care. Please let me know if there are questions or concerns regarding this plan of care. Physician Signature: Date: _ 11/05/24 1612 CC: Jamir Johnson; Dr. Rian Romero MD JLVaibhav Signed Normal [facility] L/S Spine w Bend Min 6 Vwon 10-23-2024 L/S Spine w Bend Min 6 Vw [facility] Imaging Services [address] [place] [address] L/S Spine w Bend Min 6 Vw MR#: [id number] Acct: [id number] Name: GUADALUPE DAVIS Rep #: [id number] : 1955 F 69 From: Kirsten Brewer PCP: Dr. Rian Romero MD Status: REG CLI Study: L/S Spine w Bend Min 6 Vw Date of Exam: Exam# [id number] Ordering Dr: Jamir Johnson NP, NP PROCEDURE: L/S SPINE W BEND MIN 6 VW 10/23/2024 REASON FOR EXAM: FELL TECHNIQUE: Standing AP view(s) of the thoracic and lumbar spine. 6 views total were obtained. COMPARISON: None FINDINGS: Curvature: Normal lordotic lumbar curvature. Bones: There are 5 lumbar-type vertebral bodies below the last set of paired ribs. Vertebral body heights are within normal limits. There is approximately 5 mm of anterolisthesis of L 4 in relationship to L5. This appears stable on both flexion and extension views. Other: There does appear to be some disc space narrowing involving the posterior aspect of the L1- L2, L2-L3 and L3-L4 disc spaces are there is slight disc space narrowing involving the L4-L5 and L5-S1 disc. There does appear to be some bony encroachment of the neural foramina at levels. Radiopaque clips are projected over the right mid abdominal region. RAD/L/S Spine w Bend Min 6 Vw IMPRESSION: Approximately 5 mm of anterior listhesis of L4 in relationship to L5. Degenerative disc disease involving all levels as described above. There is some bony encroachment on the neural foramina. Reading Location: [facility] CC: Jamir Johnson; Dr. Rian Romero MD Hair Spring Winder: Signed Normal [facility] Thoracic Spine 3 Viewson Thoracic Spine 3 Views [facility] Imaging Services [address] [place], [place] [id number] Thoracic Spine 3 Views MR#: [id number] Acct: [id number] Name: GUADALUPE DAVIS Rep #: [id number] : 1955 F 69 From: Nash Mendoza MD PCP: Dr. Rian Romero MD Status: REG CLI Study: Thoracic Spine 3 Views Date of Exam: 10/23/24 Exam# [id number] Ordering Dr: Jamir Johnson NP, NP PROCEDURE: THORACIC SPINE 3 VIEWS 10/23/2024 REASON FOR EXAM: UPPER BACK PAIN, RECENT FALL TECHNIQUE: 3 views of the thoracic spine. FINDINGS: Normal thoracic vertebral body heights. Disc space heights are preserved. Normal alignment. Paraspinal soft tissues are unremarkable. Other: RAD/Thoracic Spine 3 Views IMPRESSION: NEGATIVE THORACIC SPINE X-RAYS. Reading Location: [id number] CC: Jamir Johnson; Dr. Rian Romero MD Hair [place] Winder: Signed Normal [facility] Urine Cultureon 09-23-2024 URC Escherichia coli [place] Count >100,000 Escherichia coli: REACTION Ampicillin Islt BHARATH >=32 Ampicillin+Sulbac Islt BHARATH 4 S Cefepime Islt BHARATH <=0.12 S cefTRIAXone Islt BHARATH <=0.25 S Ciprofloxacin Islt BHARATH 0.5 I B-Lactamase Extended Susc Islt NEG Gentamicin Islt BHARATH <=1 S levoFLOXacin Islt BHARATH 0.5 S Meropenem Islt BHARATH <=0.25 S Nitrofurantoin Islt BHARATH <=16 S Pip+Tazo Islt BHARATH <=4 S TMP SMX Islt BHARATH >=320 R Normal [facility] Comment on above: Performed By: #### M 100.8228 ####[facility] [id number], [place], [address] Urine cultureOrdered By: Ulises Johnson on 09-21-2024 Bacteria identified Cx Nom (U) Escherichia coli Abnormal [facility] Bedside Glucoseon 09-17-2024 FINGERSTICK GLU 113 mg/dL High 74-106 [facility] Comment on above: Result Comment: ILIANA GEMENT OF PATIENT CARE PER NURSING PROTOCOL Performed By: #### L 501.080 #### [facility] Laboratory [address] [place], [place], [address] Fluor Guidance for Spine Inj on 09-17-2024 Fluor Guidance for Spine Inj [facility] Imaging Services [address] [place], [place] [address] Fluor Guidance for Spine Inj MR#: [id number] Acct: [id number] Name: GUADALUPE DAVIS Rep #: [id number] : 1955 F 69 From: Robb Gordon i DO PCP: Dr. Rian Romero MD Status: [facility] Study: Fluor Guidance for Spine Inj Date of Exam: Exam# [id number] Ordering Dr: Francisco Dyson MD PROCEDURE: Fluoroscopy use. 09/17/2024 REASON FOR EXAM: BLOCK, CAUDAL TECHNIQUE: A single intraoperative spot image was obtained during caudal nerve block. 6.2 seconds of fluoroscopic time utilized. COMPARISON: None. FINDINGS: A single lateral spot view of the sacrum was obtained during caudal nerve block. A needle tip projects over the distal aspect of the sacrum. RAD/Fluor Guidance for Spine Inj IMPRESSION: Documentation of fluoroscopy use during caudal nerve block. Please see the procedure note for details. Reading Location: [facility] CC: Dr. Francisco Dyson MD; Dr. Rian Romero MD Hair [place] Winder: Signed Normal [facility] By: Francisco Dyson on 09-17-2024 Bedside Glucose (Misc Panel) 113 mg/dL High 74-106 [facility] Comment on above: MANAGEMENT OF PATIEN T CARE PER NURSING PROTOCOL Glucose [Mass/Vol] 113 mg/dL High 74-106 [facility] Comment on above: MANAGEMENT OF PATIEN T CARE PER NURSING PROTOCOL MR/POSTOP.ANEon 09-17-2024 MR/POSTOP.ANE [facility] Medical Records Department [address] [place] [address] Anesthesia Postop Eval I 09/17/24 1256 MR#: [id number] Acct: [id number] Name: GUADALUPE DAVIS Rep #: [id number] : 1955 69 From: Evelyn Reid CRNA PCP: Dr. Rian Romero MD Status:[facility] Y Race: C Location: [place] [address] Anesthesia: Postop Eval I Current Vital Signs Temperature: 97.4 F Pulse Rate: 99 Blood Pressure: 148/85 Respiratory Rate: 14 Pulse Ox: 98 Oxygen Delivery Method: Room Air Assessment Airway patent: Yes Spontaneous unlabored respirations: Yes Mental status: Awake nausea: No Vomiting: No Anesthesia Complication: No Fluid Hydration Crystalloid volume administer (ml): 10 Total IV fluid infused: 10 Progress Note Anesthesia document: Postop Eval 1 completed: Yes 09/17/24 1257 Date Evelyn Reid CRNA Cosigner Signature: Date CC: Signed Normal [facility] MR/[id number] 09-17-2024 MR/POSTOPAN2 [facility] Medical Records Department [address] [place] [address] Anesthesia Postop Eval II 09/17/24 1750 MR#: [id number] Acct: [id number] Name: GUADALUPE DAVIS Rep #: [id number] : 1955 69 From: Jarad Ye MD PCP: Dr. Rian Romero MD Status:[facility] Y Race: C Location: [facility] Anesthesia Postop Eval I Sum Postop Eval Completion status Anesthesia document: Postop Eval 1 completed: Yes Anesthesia Postop Eval I Summary Anesthesia Postop Eval I Summary: Anesthesia Postop Eval I: Assessment Summary Airway patent Yes 09/17/24 12:57 SCOURING PADS SUPERVISOR.HBARR Spontaneous unlabored Yes 09/17/24 12:57 SCOURING PADS SUPERVISOR.HBARR respirations Mental status Awake 09/17/24 12:57 SCOURING PADS SUPERVISOR.HBARR nausea No 09/17/24 12:57 SCOURING PADS SUPERVISOR.HBARR Vomiting No 09/17/24 12:57 SCOURING PADS SUPERVISOR.HBARR Anesthesia Postop Eval I: Fluid Summary Crystalloid volume administer 10 09/17/24 12:57 SCOURING PADS SUPERVISOR.HBARR (ml) Colloids volume administered ( ml) Blood Product volume administered (ml) Total IV fluid infused 10 09/17/24 12:57 SCOURING PADS SUPERVISOR.HBARR Anesthesia Postop Eval I: Summary Notes Anesthesia Complication No 09/17/24 12:57 SCOURING PADS SUPERVISOR.HBARR Anesthesia Complication Comment: Post-operative progress note Anesthesia: Postop Eval II Evaluation Mental status: Awake and Calm Pain Level: 2 nausea: No Vomiting: No Complications Anesthesia Complication: No 09/17/24 1750 Date Jarad Ye MD Cosigner Signature: Date CC: Signed Normal [facility] Operative Reporton 5 Operative Report [facility] Medical Records Department [address] [place] [address] Operative Report 09/17/24 1250 MR#: [id number] Acct: [id number] Name: GUADALUPE DAVIS Rep #: [id number] : 1955 69 From: Francisco Dyson MD PCP: Dr. Rian Romero MD Status:[facility] Location: [address] Operative Report (Standard) Operative Information Date of Procedure: 09/17/24 Pre-Operative Diagnosis: Lumbosacral radiculopathy, lumbosacral degenerative disc disease, lumbosacral spinal stenosis Post-Operative Diagnosis: Lumbosacral radiculopathy, lumbosacral degenerative disc disease, lumbosacral spinal stenosis Surgery/Procedure Performed: Diagnostic/therapeutic caudal pleural steroid injection under fluoroscopic guidance respiratory therapy director: No Type of Anesthesia: Local MAC RN Documented Start/Stop Times: Operation Date: 09/17/24 13:20 Case Time Into Pre-Op 09/17/24 11:51 Anesthesia Start 09/17/24 12:37 Into Room 09/17/24 12:37 Anesthesia End 09/17/24 12:49 Out of Room 09/17/24 12:49 Procedure End 09/17/24 12:49 Procedure Start Time: 12:51 Procedure Stop Time: 12:51 Select all DRAINS/GRAFTS/IMPLANTS that apply: None Estimated Blood Loss: 1 Specimen collected: No Description of surgery: ANESTHESIA: MAC. BLOOD LOSS: Minimal. COMPLICATIONS: None. DESCRIPTION OF PROCEDURE: History and physical of today was reviewed. Risks and benefits of the procedure were explained. The patient understood and agreed to proceed. Informed consent was obtained. IV inserted per routine protocol. The patient was taken to the operating room and placed in the prone position with a pillow positioned underneath the abdomen. The lower back and tailbone area was prepped and draped in a sterile fashion using iodine x3. Under fluoroscopy guidance on a lateral view, the caudal space was identified. The skin and subcutaneous tissue was anesthetized with approximately 3 mL of 1% lidocaine using a 25-gauge regular needle. Under direct visualization with fluoroscopy, using a 22-gauge 3-1/2-inch spinal needle, the needle was advanced via the skin through the sacral hiatus. The tip of the needle was passed through the sacrococcygeal ligament and advanced to approximately S4 area. After negative aspiration of blood or CSF, a total of 3 mL of contrast was injected to confirm correct placement of the needle as well as cephalad spread. The spread was followed to approximately L5 area. After confirmation on AP as well as lateral view and repeated negative aspiration, a total of 15 mL of preservative-free 0.125% Marcaine with 80 mg of Depo-Medrol was injected easily. The needle was then removed intact. The patient experienced no sign or symptoms of intrathecal or intravascular injection. The patient experienced no paresthesia. The procedure was completed without any apparent difficulty or any complications. The patient appeared to tolerate it well. ASSESSMENT AND PLAN: This is a 69-year-old female with lumbosacral radiculopathy, lumbosacral degenerative disc disease, lumbosacral spinal stenosis status post diagnostic/therapeutic caudal epidural steroid injection under fluoroscopic guidance, patient will continue current medications, patient will follow up in approximately 2 weeks for reevaluation. Surgical Findings: 0 Complications Complications: No Admit VTE Documentation VTE Present on Admission: No VTE Mechan Device Prophylaxis: None VTE Pharm Prophylaxis ordered?: No 09/17/24 1252 Cosigner Signature (if applicable): CC: Dr. Francisco Dyson MD; Dr. Rian Romero MD Signed [facility] MR/PAT.ANEon 09-14-2024 MR/PAT.[facility] Medical Records Department [address] [place] [address] PAT - Anesthesia 09/14/24 1429 MR#: [id number] Acct: [id number] Name: GUADALUPE DAVIS Rep #: [id number] : 1955 68 From: Kevin Moody MD PCP: Dr. Rian Romero MD Status:PRE [facility] Y Race: C Location: [facility] Pre-Assessment Diagnosis/Proposed Procedure Planned Operative Procedure(s): CAUDAL BLOCK Anesthesia History Anesthesia History - home support worker: Anesthesia History - home support worker Hx Hospitalization No 09/14/24 12:09 Any Problems With Anesthesia [ No 04/16/22 18:23 1 (Initial Baseline)] Any Problems With Anesthesia No 09/14/24 12:09 Cholinesterase deficiency No 09/14/24 12:09 You/Your Family Experience No 09/14/24 12:09 fever (hyperthermia) with Relationship Recent Exposure to Contagious Disease Does patient have nerve No 09/14/24 12:09 stimulator Patient instructed to have device shut off --Does patient have Pacemaker or ICD? When Was Last Pacemaker Check QUESTION #4 FULL TEXT: You/Your Family Experience fever (hyperthermia) with Anesthesia Last Oral Intake Last Oral intake: Last Oral Intake NPO since Meds taken in AM with sips of water? Meds patient instructed to take am of surgery PONV PONV - home support worker: PONV - home support worker Female Yes 09/14/24 12:09 HX of Motion Sickness No 09/14/24 12:09 HX of N/V After Surgery No 09/14/24 12:09 Non-Smoker Yes 09/14/24 12:09 Duration of Surgery greater No 09/14/24 12:09 than 60 minutes Number of Risk Factors 2 09/14/24 12:09 PONV Score Moderate Risk 09/14/24 12:09 Height Weight Height Weight: Anesthesia: Height Weight Height 5 ft 6 in 08/16/24 14:56 Respiratory Assessment Respiratory Assessment - home support worker: Respiratory Tract Infection Hx - home support worker Hx Respiratory Tract Infection No 09/14/24 12:09 STOP Sleep Apnea STOP Sleep Apnea - home support worker: STOP Sleep Apnea - home support worker Hx Hypertension Yes: CONTROLLED WITH MED 09/14/24 12:09 Hx Sleep Apnea Yes 09/14/24 12:09 CPAP Yes 09/14/24 12:09 BIPAP No 09/14/24 12:09 Do you snore loudly (louder than talking or can be heard Do you often feel tired/ fatigued/ sleepy during daytime? Has anyone observed you stop breathing during sleep? STOP Results Positive 09/14/24 12:09 QUESTION #5 FULL TEXT : Do you snore loudly (louder than talking or can be heard through closed doors)? Tobacco Use History Tobacco Use History - home support worker: Tobacco Use History - home support worker Tobacco Use Smoking Status Former smoker 09/14/24 12:09 Hx Tobacco Use No 09/14/24 12:09 Years Smoking Packs Smoked per Day Smoking Cessation Date was No - quit smoking greater 09/14/24 12:09 within the last 15 years than 15 years ago Hx Smoking Cessation Date 07/04/90 09/14/24 12:09 Hx Smoking Cessation Counseling Hematologic Medial History Hematologic Hx - home support worker: Hematologic Medical Hx - brand designer Hx of Blood Transfusion No 09/14/24 12:09 Hx of Transfusion in last 3 No 09/14/24 12:09 Months Date of Last Transfusion (if within last 3 months) Ever experience any problems No 09/14/24 12:09 with transfusion(s)? Specify any problems Hx of Preganancy in last 3 N/A 09/14/24 12:09 Months Nurse Filling Out Transfusion NBUCHER 09/14/24 12:09 Questions: Date: 09/14/24 09/14/24 12:09 Time: 12:11 09/14/24 12:09 Patient unable to answer at this time (ie. confused, unrespo /Reproduction History /Reproductive History - home support worker: /Reproductive Hx- home support worker Hx Now No 09/14/24 12:09 Gestational Age (in weeks): EDC: Hx Hx Para Hx Section SAB No 09/14/24 12:09 [facility] Medical History (Updated 09/14/24 @ 12:22 by Swathi Padilla) Wears glasses Wears dentures Diabetes Ambulates with cane High cholesterol Restless legs Syncope Difficulty swallowing Dietary restriction CPAP (continuous positive airway pressure) dependence Sleep apnea Former smoker History of edema History of stress test History of echocardiogram Cardiology follow-up encounter Sick sinus syndrome Atrial flutter (04/16/22) Right knee DJD Right knee pain Hyperlipidemia Osteoporosis Vaginal prolapse Arthritis Cervical cancer Type 2 diabetes mellitus Paroxysmal atrial fibrillation Essential (primary) hypertension Obesity Obstructive sleep apnea Knee pain Shoulder pain Home Medications ???Medication ???Instructions ???Recorded ???Last Taken ???Type atorvastatin 10 mg tablet (Li (more content not included)... Normal [facility] Cardiology Visit Reporton Cardiology Visit Report [facility] [address] [place] [address]. [address] [place] [address] OFFICE VISIT Date of Service: 08/16/24 MR#: [id number] Acct: [id number] Name: GUADALUPE DAVIS Rep #: [id number] : 1955 Provider: MIKAEL clements Age/Sex: 68/F Location: [facility] Status: Signed HPI HPI History of Present Illness Details: GUADALUPE DAVIS, is a 68 F who presents to the office today for a follow up visit. She is a lady with a history of paroxysmal atrial fibrillation who has undergone at least 3 cardioversions and 1 ablation procedure. Her ablation was in February 2017 which was successful. She also had an echocardiogram performed at that time in the form of a stress echo which demonstrated normal left ventricular size and function normal RV size and function mildly dilated left atrium and she exercised to 8.8 metabolic equivalents with no evidence of ischemia. She acknowledges history of YOHAN with CPAP therapy. She recently went to see her improvement director and was noted to be in a tachycardic rhythm was sent to the emergency room and was noted to be in atrial flutter with a 2-1 conduction. She underwent synchronized electrocardioversion with 200 J biphasic energy. She successfully converted back to sinus rhythm. She has been doing well on her current medications. Patient was admitted to [facility] on 09/06/2022 for near syncope. She was seen at [facility]. She was then transferred to [facility]. Presyncope lasted approximately 10 seconds. She was noted to have symptomatic bradycardia. EP was consulted. Her metoprolol and flecainide were held. She did have an echocardiogram done which demonstrated an ejection fraction of 55 to 60%, grade 1 diastolic dysfunction. Patient did undergo a pacemaker placement. She denies chest, arm, jaw, or neck discomfort. She denies palpitations. She denies bilateral lower extremity edema. She denies claudication. She denies shortness of breath with activity, shortness of breath at rest, orthopnea, or PND. She denies chronic cough. She denies significant, sudden weight gain. She denies lightheadedness, dizziness, near-syncope, or syncope. She denies blood in urine, blood in stool, or epistaxis. He denies fever with chills. She denies myalgia. She denies fatigue. Her exercise level has remained stable, but limited due to back pain. Intake Vital Signs 06/17/23 14:22 08/16/24 14:56 Height 5 ft 6 in 5 ft 6 in Weight: 303 lb BMI 48.9 BP 116/78 Blood Pressure Location Lt brachial Position Sitting Respiration 18 Pulse 66 Pulse Source Monitor Pulse Oximetry (%) 96 Intake Visit Reasons: 14 M FU/RUTH @ 3 Hoop Cutter Required: No Is patient in pain?: No Allergies bacitracin (From Neosporin ([id number])) Adverse Reaction (Intermediate, Verified 07/25/24 14:11) yeast infection neomycin Adverse Reaction (Intermediate, Verified 07/25/24 14:11) yeast infection cephalexin Adverse Reaction (Mild, Verified 07/25/24 14:11) yeast infection Medications ???Medication ???Instructions ???Recorded ???Confirmed ???Type atorvastatin 10 mg tablet (Lipitor) 10 mg PO QDAY #30 tabs 06/12/19 08/16/24 Rx sertraline 50 mg tablet 50 mg PO DAILY 08/21/20 08/16/24 H istory calcium 600 mg (as 1 cap PO DAILY 08/20/21 08/16/24 H istory carbonate)-vitamin D3 5 mcg (200 unit) capsule (Calcium 600 + D(3)) multivitamin 1 tab PO DAILY 08/20/21 08/16/24 H istory cholecalciferol (vitamin D3) 25 25 mcg PO DAILY 12/09/21 08/16/24 History mcg (1,000 unit) capsule rivaroxaban 20 mg tablet (Xarelto) 20 mg PO DAILY #90 TABLETS 11/3008/16/24 Rx gabapentin 300 mg capsule 600 mg PO TID 05/01/24 08/16/24 Hi story melatonin 5 mg capsule mg PO QHS PRN 07/25/24 07/25/24 Hi story metoprolol succinate 50 mg 50 mg PO DAILY #90 tabs 08/16/24 0 08/16/24 Rx tablet,extended release 24 hr Have you fallen in the past year?: No PFSH Medical History (Reviewed 08/16/24 @ 15:30 by Rian Dunham [employer]IENT [employer] DESIGN[employer], [employer] EFFICIENT [employer] DES[employer]ER-C) Sick sinus syndrome Atrial flutter (04/16/22) Right knee DJD Right knee pain Hyperlipidemia Osteoporosis Vaginal prolapse Arthritis Cervical cancer Type 2 diabetes mellitus Paroxysmal atrial fibrillation Essential (primary) hypertension Obesity Obstructive sleep apnea Knee pain Shoulder pain Surgical History (Reviewed 08/16/24 @ 15:30 by Rian Dunham [employer] E[employer]ICIENT [employer]BI[employer] DESIGNER, F[employer] EFFICIENT [employer] DES[employer]ER-C) Hx of total knee replacement ( 07/2023) S/P placement of cardiac pacemaker History of cardioversion (04/16/22) H/O bilateral salpingo-oophorectomy H/O meniscectomy of right knee History of radiofrequency ablation procedure for cardiac arrhythmia (02/01/17) History of cholecystectomy Hx of hysterectomy History of appendectomy Family History (Reviewed 08/16/24 @ 15:30 by Rian Dunham F[employer] EFFICIENT [employer]OBI[employer] DESIGNER, F[employer] EFFICIENT [employer]BI[employer] DESIGNER-C) Father Diabetes (more content not included)... Normal [facility] Pacemaker Checkon 08-16-2024 Pacemaker Check [facility] [address] [place] [address] Pacemaker Check Date of Service: 08/16/241641 MR#: [id number] Acct: [id number] Name: GUADALUPE DAVIS Rep #: [id number] 9 : 1955 From: Nelia Mayfield Age/Sex: 68/F [place] [facility] [place]: Signed Billing Codes PM Device Codes: 96413 PM Dev Prog Eval, Dual Assessment and Plan Assessment and Plan (1) Sick sinus syndrome: Status: Acute (2) S/P placement of cardiac pacemaker: Status: Acute 08/16/241642 Date Neliadieter Mayfield Caroline Signature: Date (if applicable) CC: Normal [facility] MR/BMS.BVSon 07-25-2024 MR/BMS.BVS [facility] [address] [place] [address] OFFICE VISIT Date of Service: 07/25/24 MR#: [id number] Acct: [id number] Name: GUADALUPE DAVIS Rep #: [id number] 1 : 1955 Provider: RAVEN Lopez Age/Sex: 68/F Location: [facility] Status: Signed Intake Vital Signs 06/17/23 14:22 07/25/24 14:10 Height 5 ft 6 in BP 138/78 H Blood Pressure Location Lt radial Position Sitting Respiration 18 Pulse 66 Pulse Source Monitor Temp 97.8 F Temp Source Temporal Pulse Oximetry (%) 95 Oxygen Delivery Method room air Intake Visit Reasons: 3-4M FU Is patient in pain?: Yes Allergies bacitracin (From Neosporin (tyd-thw-lbssi)) Adverse Reaction (Intermediate, Verified 07/25/24 14:11) yeast infection neomycin Adverse Reaction (Intermediate, Verified 07/25/24 14:11) yeast infection cephalexin Adverse Reaction (Mild, Verified 07/25/24 14:11) yeast infection Medications ???Medication ???Instructions ???Recorded ???Confirmed ???Type atorvastatin 10 mg tablet (Lipitor) 10 mg PO QDAY #30 tabs 06/12/19 07/25/24 Rx sertraline 50 mg tablet 50 mg PO DAILY 08/21/20 07/25/24 History calcium 600 mg (as 1 cap PO DAILY 08/20/21 07/25/24 History carbonate)-vitamin D3 5 mcg (200 unit) capsule (Calcium 600 + D(3)) multivitamin 1 tab PO DAILY 08/20/21 07/25/24 History cholecalciferol (vitamin D3) 25 25 mcg PO DAILY 12/09/21 07/25/24 History mcg (1,000 unit) capsule metoprolol tartrate 50 mg tablet 50 mg PO DAILY 09/20/22 07/25/24 History rivaroxaban 20 mg tablet (Xarelto) 20 mg PO DAILY #90 TABLETS 12/01/23 07/25/24 Rx gabapentin 300 mg capsule 600 mg PO TID 05/01/24 07/25/24 History melatonin 5 mg capsule mg PO QHS PRN 07/25/24 07/25/24 History Is last menstrual period known: No Post menopausal: Yes Patient : No Have you fallen in the past year?: Yes PFSH Medical History Sick sinus syndrome Atrial flutter (04/16/22) Right knee DJD Right knee pain Hyperlipidemia Osteoporosis Vaginal prolapse Arthritis Cervical cancer Type 2 diabetes mellitus Paroxysmal atrial fibrillation Essential (primary) hypertension Obesity Obstructive sleep apnea Knee pain Shoulder pain Surgical History Hx of total knee replacement ( 07/2023) S/P placement of cardiac pacemaker History of cardioversion (04/16/22) H/O bilateral salpingo-oophorectomy H/O meniscectomy of right knee History of radiofrequency ablation procedure for cardiac arrhythmia (02/01/17) History of cholecystectomy Hx of hysterectomy History of appendectomy Family History Father Diabetes Heart disease Mother Breast cancer CVA (cerebral vascular accident) Kidney disease Social History Smoking Status: Former smoker how long ago did patient quit smokin + years ago alcohol intake: current alcohol intake frequency: a few times a month substance use type: does not use caffeine: Yes (Occasionally) HPI HPI HPI: GUADALUPE DAVIS, is a 68 F who presents to the office today for follow-up of her bilateral lower extremity edema and discoloration after efforts at conservative management and venous reflux study. She has been wearing compression stockings as prescribed. She has noticed an improvement in her edema. When she is not wearing the stockings, she still notices the discoloration mostly with prolonged sitting/standing in place, it improves some with elevation and seems to improve a lot with activity. Overall though discoloration is stable, not worsening. She does not have any new pain other than her chronic neuropathy and no wounds. She does not have any symptomatic varicosities. Recall she had prior normal arterial study. Venous reflux study revealed R SFJ, above knee GSV, and ASV reflux and L SFJ, below knee GSV, and SSV reflux. ROS General General: Yes weight change, fatigue and weakness; No appetite, colon cancer or breast cancer HEENT HEENT: Yes difficulty swallowing; No eye injury, eye surgery, swollen glands or hoarseness Endo Endocrine: Yes diabetes mellitus; No thyroid disease, thyroid cancer, Hair loss, heat intolerance or cold intolerance Skin Skin: No rash or changing moles Musc Musculoskeletal: Yes back problems and arthritis; No rheumatoid arthritis, gout or joint pain Cardio Cardiovascular: Yes pacemaker, heart disease and atrial fibrillation; No murmur, high blood pressure, heart attack, heart stent, palpitations, shortness of breat with exertion or chest pain Psych Psychiatric: Yes anxiety; No depression or hearing voices Resp Respiratory: No short (more content not included)... Normal [facility] 12-OL-Xnhfkye DOrdered By: Bhavana Romero on 07-06-2024 Vitamin D 25-Hydroxy 44.5 ng/mL [facility] Comment on above: Vitamin D 25(OH) Sta tus Range Deficiency <20 ng/mL (50nmol/L) Insufficiency 20 - 30 ng/mL (50 - 75 nmol/L) Sufficiency 30 - 100 ng/mL (75 - 250 nmol/L) Toxicity >100 ng/mL (>250 nmol/L) Absolute neutrophil countOrd ered By: Rian Romero on 07-06-2024 Neutrophils (Bld) [#/Vol] 4.5 10*3/uL 2.0-7.7 [facility] Albumin to globulin ratioOrd ered By: Rian Romero on 07-06-2024 Albumin/Globulin [Mass ratio] 0.8 {ratio} Low 0.9-2.4 [facility] Basophil percentageOrdered B y: Rian Romero on 07-06-2024 Basophils/100 WBC (Bld) 0.7 % 0-1 [facility] Bilirubin Test strip Ql (U)O rdered By: Rian Romero on 07-06-2024 Bilirubin Ql (U) Negative Negative [facility] Bilirubin, totalOrdered By: Rian Romero on 07-06-2024 Bilirubin [Mass/Vol] 0.60 mg/dL 0.20-1.[address] [facility] Comment on above: For patients on eltr ombopag therapy, use of Dimension [place] TBIL is not recommended. Blood urea nitrogen (BUN)/cr eatinine ratioOrdered By: Rian Romero on 07-06-2024 Urea nitrogen/Creatinine [Mass ratio] 17.6 mg/mg 10-20 [facility] CBC W/Diff, Automatedon Absolute Lymph 1.72 X10 3/uL Normal 0.83-4.51 [facility] Comment on above: Order Comment: Order Date: 07/06/24Order Info: [id number] - CBCD Performed By: #### L 502.0250, L100.0100, L500.4050, L506.1000, L500.4100, L501.5200, L501.9985 ####[facility] [address] [place], [place], [phone] Absolute Neut 4.5 X10 3/uL Normal 2.0-7.7 [facility] Comment on above: Order Comment: Order Date: 07/06/24Order Info: [id number] - CBCD Performed By: #### L 502.0250, L100.0100, L500.4050, L506.1000, L500.4100, L501.5200, L501.9985 ####[facility] [address] [place], [address] Basophils/100 WBC (Bld) 0.7 % Normal 0-1 [facility] Comment on above: Order Comment: Order Date: 07/06/24Order Info: [id number] - CBCD Performed By: #### L 502.0250, L100.0100, L500.4050, L506.1000, L500.4100, L501.5200, L501.9985 ####[facility] [address] [place], [address] Eosinophils/100 WBC (Bld) 2.4 % Normal 0-5 [facility] Comment on above: Order Comment: Order Date: 07/06/24Order Info: [id number] - CBCD Performed By: #### L 502.0250, L100.0100, L500.4050, L506.1000, L500.4100, L501.5200, L501.9985 ####[facility] [address] [place], [address] Erythrocyte distribution width (RBC) [Ratio] 13.6 % Normal 11.6-14.6 [facility] Comment on above: Order Comment: Order Date: 07/06/24Order Info: [id number] - CBCD Performed By: #### L 502.0250, L100.0100, L500.4050, L506.1000, L500.4100, L501.5200, L501.9985 ####[facility] [address] [place], [address] Hematocrit (Bld) [Volume fraction] 41.3 % Normal 37-47 [facility] Comment on above: Order Comment: Order Date: 07/06/24Order Info: [id number] - CBCD Performed By: #### L 502.0250, L100.0100, L500.4050, L506.1000, L500.4100, L501.5200, L501.9985 ####[facility] [address] [place], [address] Hemoglobin (Bld) [Mass/Vol] 12.8 g/dL Normal 12.0-15.0 [facility] Comment on above: Order Comment: Order Date: 07/06/24Order Info: [id number] - CBCD Performed By: #### L 502.0250, L100.0100, L500.4050, L506.1000, L500.4100, L501.5200, L501.9985 ####[facility] [address] [place], [address] IG% 0.300 Normal 0.0-0.9 [facility] Comment on above: Order Comment: Order Date: 07/06/24Order Info: [id number] - CBCD Result Comment: IG% - Immature Granulocytes (promyelocytes, myelocytes and metamyelocytes) > 1% indicates that a LEFT SHIFT is Present. Performed By: #### L 502.0250, L100.0100, L500.4050, L506.1000, L500.4100, L501.5200, L501.9985 ####[facility] [address] [place], [address] Lymphocytes/100 WBC (Bld) 24.4 % Normal 19-41 [facility] Comment on above: Order Comment: Order Date: 07/06/24Order Info: [id number] - CBCD Performed By: #### L 502.0250, L100.0100, L500.4050, L506.1000, L500.4100, L501.5200, L501.9985 ####[facility] [address] [place], [address] MCH (RBC) [Entitic mass] 26.2 pg Low 27.0-32.0 [facility] Comment on above: Order Comment: Order Date: 07/06/24Order Info: [id number] - CBCD Performed By: #### L 502.0250, L100.0100, L500.4050, L506.1000, L500.4100, L501.5200, L501.9985 ####[facility] [address] [place], [address] MCHC (RBC) [Mass/Vol] 31.0 g/dL Low 32-36 [facility] Comment on above: Order Comment: Order Date: 07/06/24Order Info: [id number] - CBCD Performed By: #### L 502.0250, L100.0100, L500.4050, L506.1000, L500.4100, L501.5200, L501.9985 ####[facility] [address] [place], [address] MCV (RBC) [Entitic vol] 84.5 fL Normal 81-99 [facility] Comment on above: Order Comment: Order Date: 07/06/24Order Info: [id number] - CBCD Performed By: #### L 502.0250, L100.0100, L500.4050, L506.1000, L500.4100, L501.5200, L501.9985 ####[facility] [address] [place], [address] Monocytes/100 WBC (Bld) 8.5 % Normal 0-10 [facility] Comment on above: Order Comment: Order Date: 07/06/24Order Info: [id number] - CBCD Performed By: #### L 502.0250, L100.0100, L500.4050, L506.1000, L500.4100, L501.5200, L501.9985 ####[facility] [address] [place], [address] Neutrophils/100 WBC (Bld) 63.7 % Normal 47-70 [facility] Comment on above: Order Comment: Order Date: 07/06/24Order Info: [id number] - CBCD Performed By: #### L 502.0250, L100.0100, L500.4050, L506.1000, L500.4100, L501.5200, L501.9985 ####[facility] [address] [place], [address] Nucleated RBC (Bld) [#/Vol] 0 10*3/uL Normal 0-5 [facility] Comment on above: Order Comment: Order Date: 07/06/24Order Info: [id number] - CBCD Performed By: #### L 502.0250, L100.0100, L500.4050, L506.1000, L500.4100, L501.5200, L501.9985 ####[facility] [address] [place], [address] Platelet mean volume (Bld) [Entitic vol] 10.4 fL Normal 6.2-12.0 [facility] Comment on above: Order Comment: Order Date: 07/06/24Order Info: [id number] - CBCD Performed By: #### L 502.0250, L100.0100, L500.4050, L506.1000, L500.4100, L501.5200, L501.9985 ####[facility] [address] [place], [address] Platelets (Bld) [#/Vol] 282 10*3/uL Normal 150-450 [facility] Comment on above: Order Comment: Order Date: 07/06/24Order Info: [id number] - CBCD Performed By: #### L 502.0250, L100.0100, L500.4050, L506.1000, L500.4100, L501.5200, L501.9985 ####[facility] [address] [place], [place], [address] RBC (Bld) [#/Vol] 4.89 10*6/uL Normal 4.2-5.4 [facility] Comment on above: Order Comment: Order Date: 07/06/24Order Info: [id number] - CBCD Performed By: #### L 502.0250, L100.0100, L500.4050, L506.1000, L500.4100, L501.5200, L501.9985 ####[facility] [address] [place], [place], [phone] RDW SD 42.2 fl Normal 35.1-43.9 [facility] Comment on above: Order Comment: Order Date: 07/06/24Order Info: [id number] - CBCD Performed By: #### L 502.0250, L100.0100, L500.4050, L506.1000, L500.4100, L501.5200, L501.9985 ####[facility] [address] [place], [place], [phone] WBC (Bld) [#/Vol] 7.0 10*3/uL Normal 4.4-11.0 [facility] Comment on above: Order Comment: Order Date: 07/06/24Order Info: [id number] - CBCD Performed By: #### L 502.0250, L100.0100, L500.4050, L506.1000, L500.4100, L501.5200, L501.9985 ####[facility] [address] [place], [place], [id number] Carbon dioxide measurementOr dered By: Rian Romero on 07-06-2024 CO2 [Moles/Vol] 28.0 mmol/L 21.0-32.0 [facility] Chloride measurementOrdered By: Rian Romero on 07-06-2024 Chloride [Moles/Vol] 106 mmol/L 98-[address] [facility] Comprehensive Metabolic Prof ilon 07-06-2024 Albumin [Mass/Vol] 3.4 g/dL Normal 3.2-5.0 [facility] Comment on above: Order Comment: Order Date: 07/06/24Order Info: [id number] - CMPOrder Info: [id number] - LIPIDOrder Info: [id number] - MG Performed By: #### L 502.0250, L100.0100, L500.4050, L506.1000, L500.4100, L501.5200, L501.9985 ####[facility] [address] [place], [address] Albumin/Globulin [Mass ratio] 0.8 {ratio} Low 0.9-2.4 [facility] Comment on above: Order Comment: Order Date: 07/06/24Order Info: [id number] - CMPOrder Info: [id number] - LIPIDOrder Info: [id number] - MG Performed By: #### L 502.0250, L100.0100, L500.4050, L506.1000, L500.4100, L501.5200, L501.9985 ####[facility] [address] [place], [address] ALK P 97 U/L Normal 45-117 [facility] Comment on above: Order Comment: Order Date: 07/06/24Order Info: [id number] - CMPOrder Info: [id number] - LIPIDOrder Info: [id number] - MG Performed By: #### L 502.0250, L100.0100, L500.4050, L506.1000, L500.4100, L501.5200, L501.9985 ####[facility] [address] [place], [address] ALT [Catalytic activity/Vol] 27 U/L Normal 13-56 [facility] Comment on above: Order Comment: Order Date: 07/06/24Order Info: [id number] - CMPOrder Info: [id number] - LIPIDOrder Info: [id number] - MG Performed By: #### L 502.0250, L100.0100, L500.4050, L506.1000, L500.4100, L501.5200, L501.9985 ####[facility] [address] [place], [place], [address] AST [Catalytic activity/Vol] 19 U/L Normal 15-37 [facility] Comment on above: Order Comment: Order Date: 07/06/24Order Info: [id number] - CMPOrder Info: [id number] - LIPIDOrder Info: [id number] - MG Performed By: #### L 502.0250, L100.0100, L500.4050, L506.1000, L500.4100, L501.5200, L501.9985 ####[facility] [address] [place], [place], [id number] Bilirubin [Mass/Vol] 0.60 mg/dL Normal 0.20-1.[address] [facility] Comment on above: Order Comment: Order Date: 07/06/24Order Info: [id number] - CMPOrder Info: [id number] - LIPIDOrder Info: [id number] - MG Result Comment: For patients on eltrombopag therapy, use of Dimension [place] TBIL is not recommended. Performed By: #### L 502.0250, L100.0100, L500.4050, L506.1000, L500.4100, L501.5200, L501.9985 ####[facility] [address] [place], [place], [address] BUN/CRE 17.6 RATIO Normal 10-20 [facility] Comment on above: Order Comment: Order Date: 07/06/24Order Info: [id number] - CMPOrder Info: [id number] - LIPIDOrder Info: [id number] - MG Performed By: #### L 502.0250, L100.0100, L500.4050, L506.1000, L500.4100, L501.5200, L501.9985 ####[facility] [address] [place], [address] CA,Total 9.9 mg/dL Normal 8.5-10.1 [facility] Comment on above: Order Comment: Order Date: 07/06/24Order Info: [id number] - CMPOrder Info: [id number] - LIPIDOrder Info: [id number] - MG Performed By: #### L 502.0250, L100.0100, L500.4050, L506.1000, L500.4100, L501.5200, L501.9985 ####[facility] [address] [place], [address] Chloride [Moles/Vol] 106 mmol/L Normal 98-[address] [facility] Comment on above: Order Comment: Order Date: 07/06/24Order Info: [id number] - CMPOrder Info: [id number] - LIPIDOrder Info: [id number] - MG Performed By: #### L 502.0250, L100.0100, L500.4050, L506.1000, L500.4100, L501.5200, L501.9985 ####[facility] [address] [place], [address] CO2 [Moles/Vol] 28.0 mmol/L Normal 21.0-32.0 [facility] Comment on above: Order Comment: Order Date: 07/06/24Order Info: [id number] - CMPOrder Info: [id number] - LIPIDOrder Info: [id number] - MG Performed By: #### L 502.0250, L100.0100, L500.4050, L506.1000, L500.4100, L501.5200, L501.9985 ####[facility] [address] [place], [address] Creatinine [Mass/Vol] 0.74 mg/dL Normal 0.55-1.02 [facility] Comment on above: Order Comment: Order Date: 07/06/24Order Info: [id number] - CMPOrder Info: [id number] - LIPIDOrder Info: [id number] - MG Result Comment: The validity of the calculated GFR GFRAA in patients over 70 years has not been determined. Clinical correlation is essential. Performed By: #### L 502.0250, L100.0100, L500.4050, L506.1000, L500.4100, L501.5200, L501.9985 ####[facility] [address] [place], [place], [phone] EST GFR - AA 100 mL/min Normal >60 [facility] Comment on above: Order Comment: Order Date: 07/06/24Order Info: [id number] - CMPOrder Info: [id number] - LIPIDOrder Info: [id number] - MG Result Comment: Afri can Cymro GFR Calc Performed By: #### L 502.0250, L100.0100, L500.4050, L506.1000, L500.4100, L501.5200, L501.9985 ####[facility] [address] [place], [place], [id number] GAP 6 Normal 5-15 [facility] Comment on above: Order Comment: Order Date: 07/06/24Order Info: [id number] - CMPOrder Info: [id number] - LIPIDOrder Info: [id number] - MG Performed By: #### L 502.0250, L100.0100, L500.4050, L506.1000, L500.4100, L501.5200, L501.9985 ####[facility] [address] [place], [place], [phone] GFR/1.73 sq M.predicted among non-blacks MDRD (S/P/Bld) [Vol rate/Area] 83 mL/min/{1.73_m2} Normal >60 [facility] Comment on above: Order Comment: Order Date: 07/06/24Order Info: [id number] - CMPOrder Info: [id number] - LIPIDOrder Info: [id number] - MG Result Comment: Non- GFR Calc Performed By: #### L 502.0250, L100.0100, L500.4050, L506.1000, L500.4100, L501.5200, L501.9985 ####[facility] [address] [address] [place], [place], [address] Globulin (S) [Mass/Vol] 4.3 g/dL High 2.2-4.2 [facility] Comment on above: Order Comment: Order Date: 07/06/24Order Info: [id number] - CMPOrder Info: [id number] - LIPIDOrder Info: [id number] - MG Performed By: #### L 502.0250, L100.0100, L500.4050, L506.1000, L500.4100, L501.5200, L501.9985 ####[facility] [address] [place], [place], [id number] Glucose [Mass/Vol] 191 mg/dL High 74-106 [facility] Comment on above: Order Comment: Order Date: 07/06/24Order Info: [id number] - CMPOrder Info: [id number] - LIPIDOrder Info: [id number] - MG Result Comment: Fast ing Glucose result greater than or equal to 126 mg/dL suggests DIABETES MELLITUS per A.D.A. criteria. Performed By: #### L 502.0250, L100.0100, L500.4050, L506.1000, L500.4100, L501.5200, L501.9985 ####[facility] [address] [place], [place], [phone] Potassium [Moles/Vol] 3.8 mmol/L Normal 3.5-5.1 [facility] Comment on above: Order Comment: Order Date: 07/06/24Order Info: [id number] - CMPOrder Info: [id number] - LIPIDOrder Info: [id number] - MG Performed By: #### L 502.0250, L100.0100, L500.4050, L506.1000, L500.4100, L501.5200, L501.9985 ####[facility] [address] [place], [address] Sodium [Moles/Vol] 140 mmol/L Normal 136-145 [facility] Comment on above: Order Comment: Order Date: 07/06/24Order Info: [id number] - CMPOrder Info: [id number] - LIPIDOrder Info: [id number] - MG Performed By: #### L 502.0250, L100.0100, L500.4050, L506.1000, L500.4100, L501.5200, L501.9985 ####[facility] [address] [place], [place], [phone] T PROT 7.7 g/dL Normal 6.4-8.2 [facility] Comment on above: Order Comment: Order Date: 07/06/24Order Info: [id number] - CMPOrder Info: [id number] - LIPIDOrder Info: [id number] - MG Performed By: #### L 502.0250, L100.0100, L500.4050, L506.1000, L500.4100, L501.5200, L501.9985 ####[facility] [address] [place], [place], [phone] Urea nitrogen [Mass/Vol] 13 mg/dL Normal 7-18 [facility] Comment on above: Order Comment: Order Date: 07/06/24Order Info: [id number] - CMPOrder Info: [id number] - LIPIDOrder Info: [id number] - MG Performed By: #### L 502.0250, L100.0100, L500.4050, L506.1000, L500.4100, L501.5200, L501.9985 ####[facility] [address] [place], [place], [phone] Eosinophil percentageOrdered By: Rian Romero on 07-06-2024 Eosinophils/100 WBC (Bld) 2.4 % 0-5 [facility] Epithelial cells.squamous LM Ql (Urine sed)Ordered By: Rian Romero on 07-06-2024 Epithelial cells.squamous LM.HPF (Urine sed) [#/Area] 5 /[HPF] 5-10 [facility] Erythrocyte distribution wid th ratioOrdered By: Rian Romero on 07-06-2024 Erythrocyte distribution width (RBC) [Ratio] 13.6 % 11.6-14.6 [facility] Erythrocyte distribution wid th standard deviationOrdered By: Rian Romero on 07-06-2024 Erythrocyte distribution width (RBC) [Entitic vol] 42.2 fL 35.1-43.9 [facility] Estimated glomerular filtrat ion rate (GFR) AmericanOrdered By: Rian Romero on 07-06-2024 Estimated GFR (MDRD) Amer 100 mL/min >60 [facility] Comment on above: GFR Calc Glomerular filtration rate ( GFR) estimationOrdered By: Rian Romero on 07-06-2024 Estimated GFR (MDRD) Non-Af Amer 83 mL/min >60 [facility] Comment on above: Non- GFR Calc Glucose Ql (U)Ordered By: Susi Romero on 07-06-2024 Urine Glucose (UA) Normal mg/dl Normal [facility] Glucose measurementOrdered B y: Rian Romero on 07-06-2024 Glucose [Mass/Vol] 191 mg/dL High 74-106 [facility] Comment on above: Fasting Glucose resu lt greater than or equal to 126 mg/dL suggests DIABETES MELLITUS per A.D.A. criteria. Hematocrit Auto (Bld) [Volum e fraction]Ordered By: Rian Romero on 07-06-2024 Hematocrit (Bld) [Volume fraction] 41.3 % 37-47 [facility] Hemoglobin A1c percentageOrd ered By: Rian Romero on 07-06-2024 HbA1c (Bld) [Mass fraction] 7.0 % High 3.8-5.6 [facility] Comment on above: Normal < 5.7 % Predi abetic 5.7 - 6.4 % Diabetic >or= 6.5 % Please note range changes. Order Comment: Order Date: 07/06/24Order Info: [id number] - A1C Result Comment: Norm al < 5.7 % Prediabetic 5.7 - 6.4 % Diabetic >or= 6.5 % Please note range changes. Performed By: #### L 501.080 #### [facility] Laboratory [address] [place], [address] Hemoglobin measurementOrdere d By: Rian Romero on 07-06-2024 Hemoglobin (Bld) [Mass/Vol] 12.8 g/dL 12.0-15.0 [facility] High density lipoprotein (HD L) measurementOrdered By: Rian Romero on 07-06-2024 Cholesterol in HDL [Mass/Vol] 66 mg/dL >40 [facility] Comment on above: The drugs N-Acetylcy steine and Metamizole may falsely depress this assay. Reference Range HDL <40 mg/dL Low HDL Cholesterol HDL >or= 60 mg/dL High HDL Cholesterol Immature granulocytes/100 WB C Auto (Bld)Ordered By: Rian Romero on 07-06-2024 Immature granulocytes/100 WBC (Bld) 0.300 % 0.0-0.9 [facility] Comment on above: IG% - Immature Granu locytes (promyelocytes, myelocytes and metamyelocytes) > 1% indicates that a LEFT SHIFT is Present. Ketones Test strip Ql (U)Ord ered By: Rian Romero on 07-06-2024 Ketones Ql (U) Negative Negative [facility] Laboratory - Chemistry and C hemistry - challengeOrdered By: Rian Romero on 07-06-2024 AST [Catalytic activity/Vol] 19 U/L 15-37 [facility] Lipid Profileon 07-06-2024 Cholesterol [Mass/Vol] 142 mg/dL Normal 200 [facility] Comment on above: Order Comment: Order Date: 07/06/24Order Info: [id number] - CMPOrder Info: [id number] - LIPIDOrder Info: [id number] - MG Result Comment: <200 mg/dL Desirable 200-240 mg/dL Borderline >240 mg/dL High Risk Performed By: #### L 502.0250, L100.0100, L500.4050, L506.1000, L500.4100, L501.5200, L501.9985 ####[facility] [address] [place], [address] Cholesterol in HDL [Mass/Vol] 66 mg/dL Normal [facility] Comment on above: Order Comment: Order Date: 07/06/24Order Info: [id number] - CMPOrder Info: [id number] - LIPIDOrder Info: [id number] - MG Result Comment: The drugs N-Acetylcysteine and Metamizole may falsely depress this assay. Reference Range HDL <40 mg/dL Low HDL Cholesterol HDL >or= 60 mg/dL High HDL Cholesterol Performed By: #### L 502.0250, L100.0100, L500.4050, L506.1000, L500.4100, L501.5200, L501.9985 ####[facility] [address] [place], [address] Cholesterol in LDL [Mass/Vol] 53 mg/dL Normal 0-130 [facility] Comment on above: Order Comment: Order Date: 07/06/24Order Info: [id number] - CMPOrder Info: [id number] - LIPIDOrder Info: [id number] - MG Performed By: #### L 502.0250, L100.0100, L500.4050, L506.1000, L500.4100, L501.5200, L501.9985 ####[facility] [address] [place], [address] Cholesterol in VLDL [Mass/Vol] 23 mg/dL Normal 5-40 [facility] Comment on above: Order Comment: Order Date: 07/06/24Order Info: [id number] - CMPOrder Info: [id number] - LIPIDOrder Info: [id number] - MG Performed By: #### L 502.0250, L100.0100, L500.4050, L506.1000, L500.4100, L501.5200, L501.9985 ####[facility] [address] [place], [address] Triglyceride [Mass/Vol] 113 mg/dL Normal [facility] Comment on above: Order Comment: Order Date: 07/06/24Order Info: [id number] - CMPOrder Info: [id number] - LIPIDOrder Info: [id number] - MG Result Comment: The drugs N-Acetylcysteine and Metamizole may falsely depress this assay. Serum Triglycerides Reference Interval Normal <150 mg/dL Borderline high 150 - 199 mg/dL High 200 - 499 mg/dL Very High > or = 500 mg/dL Performed By: #### L 502.0250, L100.0100, L500.4050, L506.1000, L500.4100, L501.5200, L501.9985 ####[facility] [address] [facility] [place], [place], [address] Low density lipoprotein (LDL ) cholesterol measurementOrdered By: Rian Romero on 07-06-2024 Cholesterol in LDL [Mass/Vol] 53 mg/dL 0-130 [facility] Lumbar Spine 2 or 3 Viewson 07-06-2024 Lumbar Spine 2 or 3 Views [facility] [address] [place], [place] [address] Lumbar Spine 2 or 3 Views MR#: [id number] Acct: [id number] Name: GUADALUPE DAVIS Rep #: [id number] : 1955 F 68 From: Luis Downey MD PCP: Dr. Rian Romero MD Status: [facility] Study: Lumbar Spine 2 or 3 Views Date of Exam: Exam# [id number] Ordering Dr: Rian Romero MD [id number] EXAM: XR LUMBOSACRAL SPINE, 2 OR 3 VIEWS CLINICAL INDICATION: pain TECHNIQUE: Frontal and lateral views of the lumbar spine and sacrum. COMPARISON: No relevant prior studies available. FINDINGS: VERTEBRAE: There is mild facet hypertrophy at L4-5 and L5-S1. Preserved vertebral body height. No fracture. No spondylolisthesis. Preservation of the normal lumbar lordosis. DISC SPACES: See above. GASTROINTESTINAL TRACT: Unremarkable as visualized. Included bowel gas pattern is non-obstructive. RAD/Lumbar Spine 2 or 3 Views IMPRESSION: No acute osseous abnormalities of the lumbar spine. There are degenerative changes with facet hypertrophy at L4-5 and L5-S1. Electronically Signed: Luis Downey MD at 23:59 EST , CC: Dr. Rian Romero MD [place]: Signed Normal [facility] Lymphocytes Auto (Unsp spec) [#/Vol]Ordered By: Rian Romero on 07-06-2024 Lymphocytes (Bld) [#/Vol] 1.72 10*3/uL 0.83-4.51 [facility] Lymphocytes/100 WBC Auto (Un sp spec)Ordered By: Rian Romero on 07-06-2024 Lymphocytes/100 WBC (Bld) 24.4 % 19-41 [facility] MCV (mean corpuscular volume ) determinationOrdered By: Rian Romero on 07-06-2024 MCV (RBC) [Entitic vol] 84.5 fL 81-99 [facility] Magnesiumon 07-06-2024 Magnesium [Mass/Vol] 1.8 mg/dL Normal 1.6-2.[address] [facility] Comment on above: Order Comment: Order Date: 07/06/24Order Info: [id number] - CMPOrder Info: [id number] - LIPIDOrder Info: [id number] - MG Performed By: #### L 501.080 #### [facility] Laboratory [address] [place] [address], [address] Magnesium measurementOrdered By: Rian Romero on 07-06-2024 Magnesium [Mass/Vol] 1.8 mg/dL 1.6-2.[address] [facility] Mean corpuscular hemoglobin (MCH) determinationOrdered By: Rian Romero on 07-06-2024 MCH (RBC) [Entitic mass] 26.2 pg Low 27.0-32.0 [facility] Mean corpuscular hemoglobin concentration (MCHC) determinationOrdered By: Rian Romero on 07-06-2024 MCHC (RBC) [Mass/Vol] 31.0 g/dL Low 32-36 [facility] Mean platelet volume determi nationOrdered By: Rian Romero on 07-06-2024 Platelet mean volume (Bld) [Entitic vol] 10.4 fL 6.2-12.0 [facility] Microalb:Creat Ratio,Random URon 07-06-2024 Creatinine [Mass/Vol] 181.00 mg/dL Normal NO RAN GE EST. [facility] Comment on above: Order Comment: Order Date: 07/06/24Order Info: [id number] - MIACRE Performed By: #### L 501.080 #### [facility] Laboratory [address] [place], [place], [id number] MALB:CRE 9.0 mg/g CRE Normal <30 mg/g CRE [facility] Comment on above: Order Comment: Order Date: 07/06/24Order Info: [id number] - MIACRE Performed By: #### L 501.080 #### [facility] Laboratory [address] [place], [place], [phone] MICROALBUMIN,UR 16.2 mg/L Normal NO RANGE EST. [facility] Comment on above: Order Comment: Order Date: 07/06/24Order Info: [id number] - MIACRE Performed By: #### L 501.080 #### [facility] Laboratory [address] [place], [place], [id number] Microscopic analysis of urin e for red blood cells (RBC)Ordered By: Rian Romero on 07-06-2024 Urine RBC 0-5 SEEN /hpf 0-5 [facility] Monocyte percentageOrdered B y: Rian Romero on 07-06-2024 Monocytes/100 WBC (Bld) 8.5 % 0-10 [facility] Mucus LM Ql (Urine sed)Order ed By: Rian Romero on 07-06-2024 Mucus Ql (Urine sed) 2+ /hpf [facility] Neutrophil percentageOrdered By: Rian Romero on 07-06-2024 Neutrophils/100 WBC (Bld) 63.7 % 47-70 [facility] Nitrite Test strip Ql (U)Ord ered By: Rian Romero on 07-06-2024 Nitrite Ql (U) Negative Negative [facility] Nucleated red blood cell per centageOrdered By: Rian Romero on 07-06-2024 Nucleated RBC/100 WBC (Bld) [Ratio] 0 % 0-5 [facility] Platelet countOrdered By: Susi Romero on 07-06-2024 Platelets (Bld) [#/Vol] 282 10*3/uL 150-450 [facility] Potassium measurementOrdered By: Rian Romero on 07-06-2024 Potassium [Moles/Vol] 3.8 mmol/L 3.5-5.1 [facility] Protein Test strip Ql (U)Ord ered By: Rian Romero on 07-06-2024 Protein Ql (U) 15 mg/dl High Negative [facility] RBC Auto (Bld) [#/Vol]Ordere d By: Rian Romero on 07-06-2024 RBC (Bld) [#/Vol] 4.89 10*6/uL 4.2-5.4 [facility] Random urine microalbumin me asurementOrdered By: Rian Romero on 07-06-2024 Urine Random Microalbumin 16.2 mg/L NO RANGE EST. [facility] Serum anion gap measurementO rdered By: Rian Romero on 07-06-2024 Anion gap [Moles/Vol] 6 mmol/L 5-15 [facility] Serum globulin measurementOr dered By: Rian Romero on 07-06-2024 Globulin (S) [Mass/Vol] 4.3 g/dL High 2.2-4.2 [facility] Serum or plasma alanine holloway otransferase (ALT) measurementOrdered By: Rian Romero on 07-06-2024 ALT [Catalytic activity/Vol] 27 U/L 13-56 [facility] Serum or plasma albumin jennifer urement (mass/volume)Ordered By: Rian Romero on 07-06-2024 Albumin [Mass/Vol] 3.4 g/dL 3.2-5.0 [facility] Serum or plasma alkaline georgina sphatase measurementOrdered By: Rian Romero on 07-06-2024 ALP [Catalytic activity/Vol] 97 U/L 45-117 [facility] Serum or plasma calcium jennifer urement (mass/volume)Ordered By: Rian Romero on 07-06-2024 Calcium [Mass/Vol] 9.9 mg/dL 8.5-10.1 [facility] Serum or plasma cholesterol measurement (mass/volume)Ordered By: Rian Romero on 07-06-2024 Cholesterol [Mass/Vol] 142 mg/dL <200 [facility] Comment on above: <200 mg/dL Desirable 200-240 mg/dL Borderline >240 mg/dL High Risk Serum or plasma creatinine m easurement (mass/volume)Ordered By: Rian Romero on 07-06-2024 Creatinine [Mass/Vol] 0.74 mg/dL 0.55-1.02 [facility] Comment on above: The validity of the calculated GFR & GFRAA in patients over 70 years has not been determined. Clinical correlation is essential. Serum or plasma urea nitroge n measurement (mass/volume)Ordered By: Rian Romero on 07-06-2024 Urea nitrogen [Mass/Vol] 13 mg/dL 7-18 [facility] Sodium levelOrdered By: Rian Romero on 07-06-2024 Sodium [Moles/Vol] 140 mmol/L 136-145 [facility] Total proteinOrdered By: Baldomero Romero on 07-06-2024 Protein [Mass/Vol] 7.7 g/dL 6.4-8.2 [facility] Triglycerides measurementOrd ered By: Rian Romero on 07-06-2024 Triglyceride [Mass/Vol] 113 mg/dL <199 [facility] Comment on above: The drugs N-Acetylcy steine and Metamizole may falsely depress this assay.Serum Triglycerides Reference Interval Normal <150 mg/dL Borderline high 150 - 199 mg/dL High 200 - 499 mg/dL Very High > or = 500 mg/dL Urinalysis, Completeon 07-06 BACTERIA 1+ /hpf Normal None Seen [facility] Comment on above: Order Comment: Urine , Random Performed By: #### L 400.0001 ####[facility] [address] [place], [address] EPI,SQUAMOUS 5-10 SEEN Normal 5-10 [facility] Comment on above: Order Comment: Urine , Random Performed By: #### L 400.0001 ####[facility] [address] [place], [address] Mucus Ql (Urine sed) 2+ /hpf Normal [facility] Comment on above: Order Comment: Urine , Random Performed By: #### L 400.0001 ####[facility] [address] [place], [address] RBC 0-5 SEEN Normal 0-5 [facility] Comment on above: Order Comment: Urine , Random Performed By: #### L 400.0001 ####[facility] [address] [place], [address] WBC 5-10 SEEN Normal 0-5 [facility] Comment on above: Order Comment: Urine , Random Performed By: #### L 400.0001 ####[facility] [address] [place], [address] Urine albumin/creatinine rat io for detection of microalbuminuriaOrdered By: Rian Romero on 07-06-2024 Urine Microalbumin/Creatinine Ratio 9.0 mg/g CRE <30 [facility] Urine blood detectionOrdered By: Rian Romero on 07-06-2024 Urine Occult Blood Negative Negative [facility] Urine clarityOrdered By: Baldomero Romero on 07-06-2024 Clarity (U) Sl. Cloudy Clear [facility] Urine color determinationOrd ered By: Rian Romero on 07-06-2024 Color (U) Yellow Yellow [facility] Urine creatinine measurement (mass/volume)Ordered By: Rian Romero on 07-06-2024 Creatinine (U) [Mass/Vol] 181.00 mg/dL NO RANGE EST. [facility] Urine leukocyte esterase det ection by dipstickOrdered By: Rian Romero on 07-06-2024 Leukocyte esterase Test strip Ql (U) 25 /ul High Negative [facility] Urine pHOrdered By: Rian glover on 07-06-2024 pH (U) 5.0 [pH] 5.0 - 8.0 [facility] Urine sediment bacteria coun t by microscopy (number/high power field)Ordered By: Rian Romero on 07-06-2024 Bacteria LM.HPF (Urine sed) [#/Area] 1 /[HPF] None Seen [facility] Urine specific gravity measu rementOrdered By: Rian Romero on 07-06-2024 Specific gravity (U) [Rel density] 1.020 1.002-1.03 0 [facility] Urobilinogen Ql (U)Ordered B y: Rian Romero on 07-06-2024 Urobilinogen (U) [Mass/Vol] 1 mg/dL High Normal [facility] Very low density lipoprotein (VLDL) cholesterol measurementOrdered By: Rian Romero on 07-06-2024 VLDL Cholesterol 23 mg/dL 5-40 [facility] Vitamin D,25 Hydroxyon 07-06 Vitamin D 25-OH 44.5 ng/mL Normal [facility] Comment on above: Order Comment: Order Date: 07/06/24Order Info: [id number] - [id number] Result Comment: Pamela min D 25(OH) Status Range Deficiency <20 ng/mL (50nmol/L) Insufficiency 20 - 30 ng/mL (50 - 75 nmol/L) Sufficiency 30 - 100 ng/mL (75 - 250 nmol/L) Toxicity >100 ng/mL (>250 nmol/L) Performed By: #### L 501.080 #### [facility] Laboratory [address] [facility] [place], [address] White blood cell (WBC) count Ordered By: Rian Romero on 07-06-2024 WBC (Bld) [#/Vol] 7.0 10*3/uL 4.4-11.0 [facility] White blood cell countOrdere d By: Rian Romero on 07-06-2024 Urine WBC 5-10 SEEN /hpf 0-5 [facility] Venous Duplex US - Tj Extre mon 05-24-2024 Venous Duplex US - Tj Extrem [facility] [address] [place] [address] Venous Duplex US - Tj Extrem 05/24/24 1311 MR#: [id number] Acct: [id number] Name: GUADALUPE DAVIS Rep #: [id number] : 1955 68 From: Regulo Baxter MD Attending Dr: RAVEN Lopez Status: REG CLI Ordering Dr: Yarelis Lorenz Date: 05/24/24 Location: [facility] Sex: F C Admitted: Reason For Study: Bilateral leg swelling RIGHT LEFT CFV is compressible, spontaneous, phasic, CFV is compressible, spontaneous, phasic, competent and demonstrates normal competent, and demonstrates normal augmentation. augmentation. FV is compressible, spontaneous, phasic, FV is compressible, spontaneous, phasic, competent and demonstrates normal competent and demonstrates normal augmentation. augmentation. POP V is compressible, spontaneous, phasic, POP V is compressible, spontaneous, phasic, competent and demonstrates normal competent and demonstrates normal augmentation. augmentation. T/P Trunk is compressible. T/P Trunk is compressible. PTV is compressible. PTV is compressible. RT PerV is compressible. LT PerV is compressible. SFJ is INCOMPETENT and measures 0.68 cm. SFJ is INCOMPETENT and measures 0.87 cm. GSV proximal thigh measures 0.70 x 0.63 cm. GSV proximal thigh measures 0.76 x 0.77 cm. GSV above knee is INCOMPETENT for greater GSV above knee is competent. than 0.5 seconds. GSV at knee measures 0.39 x 0.43 cm. GSV at knee measures 0.54 x 0.58 cm. GSV below knee is INCOMPETENT for greater GSV below knee is competent. than 0.5 seconds. ASV 1 prox calf is INCOMPETENT for greater SSV mid calf is INCOMPETENT for greater than than 0.5 seconds and measures 0.39 x 0.41 cm. 0.5 seconds and measures 0.39 x 0.43 cm. Vessel is medial on leg. ASV 2 prox calf is INCOMPETENT for greater than 0.5 seconds and measures 0.27 x 0.26. Vessel is anterior on leg. Connects GSV prox calf to GSV mdistal calf. SSV mid calf is competent and measures 0.21 x 0.18 cm. Vascularized structure noted in the right groin that measures 1.84 x 2.39 cm. Procedure This is a venous duplex using B-mode, color flow and spectral Doppler. Exam performed in department. Patient was scanned in reverse Trendelenburg position during reflux assessment. VL/Venous Duplex US - Tj Extrem Interpretation Summary Deep veins of the bilateral lower extremities are patent and compressible segmentally. There is no evidence of bilateral lower extremity deep vein thrombosis. The bilateral great saphenous veins appear patent and compressible segmentally. Positive for reflux in the right saphenofemoral junction, great saphenous vein above the knee, two accessory saphenous veins in the calf. Positive for reflux in the left saphenofemoral junction, great saphenous vein below the knee, and small saphenous vein. Vascularized structure noted in the right groin that measures 1.84 x 2.39 cm. ___ Ordering Physician: Yarelis Lorenz Referring Physician: Rian Romero Performed By: Sabiha Stiles RVT 05/28/24 0854 Date Regulo Baxter MD CC: RAVEN Lopez; Dr. Rian Romero MD Date Dictated: 05/24/24 1311 Date Transcribed: 05/28/24 0854 [place] Winder: Signed Normal [facility] Absolute lymphocyte countOrd ered By: Rian Romero on 10-26-2023 Lymphocytes Auto (Unsp spec) [#/Vol] 2.18 10*3/uL 0.83-4.51 [facility] [place] Automated lymphocyte count a s percentage of total leukocytesOrdered By: Rian Romero on 10-26-2023 Lymphocytes/100 WBC Auto (Unsp spec) 35.3 % 19-41 [facility] Basophil percentageOrdered B y: Rian Romero on 10-26-2023 Basophil percentage 0-5 SEEN /hpf 0-5 [facility] Basophils/100 WBC (Bld) 1.0 % 0-1 [facility] Bilirubin [Mass/Vol] 0.40 mg/dL 0.20-1.[address] [facility] Comment on above: For patients on eltr ombopag therapy, use of Dimension [place] TBIL is not recommended. Chloride [Moles/Vol] 106 mmol/L 98-[address] [facility] Cholesterol [Mass/Vol] 143 mg/dL <200 [facility] Comment on above: <200 mg/dL Desirable 200-240 mg/dL Borderline >240 mg/dL High Risk Eosinophils/100 WBC (Bld) 1.9 % 0-5 [facility] Glucose [Mass/Vol] 100 mg/dL 74-106 [facility] Comment on above: Fasting Glucose resu lt from 100 to 125 mg/dL suggests IMPAIRED HOMEOSTASIS per A.D.A. criteria. Hemoglobin (Bld) [Mass/Vol] 12.5 g/dL 12.0-15.0 [facility] Monocytes/100 WBC (Bld) 9.9 % 0-10 [facility] Neutrophils (Bld) [#/Vol] 3.2 10*3/uL 2.0-7.7 [facility] Neutrophils/100 WBC (Bld) 51.7 % 47-70 [facility] Potassium [Moles/Vol] 4.2 mmol/L 3.5-5.1 [facility] Protein [Mass/Vol] 7.9 g/dL 6.4-8.2 [facility] Sodium [Moles/Vol] 139 mmol/L 136-145 [facility] Triglyceride [Mass/Vol] 110 mg/dL <199 [facility] Comment on above: The drugs N-Acetylcy steine and Metamizole may falsely depress this assay.Serum Triglycerides Reference Interval Normal <150 mg/dL Borderline high 150 - 199 mg/dL High 200 - 499 mg/dL Very High > or = 500 mg/dL WBC (Bld) [#/Vol] 6.2 10*3/uL 4.4-11.0 [facility] Bilirubin Test strip Ql (U)O rdered By: Rian Romero on 10-26-2023 Bilirubin Ql (U) Negative Negative [facility] Determination of erythrocyte mean corpuscular volume (MCV)Ordered By: Rian Romero on 10-26-2023 MCV (RBC) [Entitic vol] 84.9 fL 81-99 [facility] Erythrocyte distribution wid th ratioOrdered By: Rian Romero on 10-26-2023 Erythrocyte distribution width (RBC) [Ratio] 13.8 % 11.6-14.6 [facility] [place] Erythrocyte distribution wid th standard deviationOrdered By: Rian Romero on 10-26-2023 Erythrocyte distribution width (RBC) [Entitic vol] 42.6 fL 35.1-43.9 [facility] Hematocrit Auto (Bld) [Volum e fraction]Ordered By: Rian Romero on 10-26-2023 Hematocrit (Bld) [Volume fraction] 40.4 % 37-47 [facility] [place] Immature granulocytes/100 WB C Auto (Bld)Ordered By: Rian Romero on 10-26-2023 Immature granulocytes/100 WBC (Bld) 0.200 % 0.0-0.9 [facility] Comment on above: IG% - Immature Granu locytes (promyelocytes, myelocytes and metamyelocytes) > 1% indicates that a LEFT SHIFT is Present. Ketones Test strip Ql (U)Ord ered By: Rian Romero on 10-26-2023 Ketones Ql (U) Negative Negative [facility] [place] Laboratory - Chemistry and C hemistry - challengeOrdered By: Rian Romero on 10-26-2023 Albumin/Globulin [Mass ratio] 0.8 {ratio} 0.9-2.4 [facility] ALP [Catalytic activity/Vol] 99 U/L 45-117 [facility] ALT [Catalytic activity/Vol] 19 U/L 13-56 [facility] Cholesterol in HDL [Mass/Vol] 63 mg/dL >40 [facility] Comment on above: The drugs N-Acetylcy steine and Metamizole may falsely depress this assay. Reference Range HDL <40 mg/dL Low HDL Cholesterol HDL >or= 60 mg/dL High HDL Cholesterol Cholesterol in LDL [Mass/Vol] 58 mg/dL 0-130 [facility] CO2 [Moles/Vol] 29.0 mmol/L 21.0-32.0 [facility] Globulin (S) [Mass/Vol] 4.5 g/dL 2.2-4.2 [facility] Magnesium [Mass/Vol] 2.0 mg/dL 1.6-2.[address] [facility] Urea nitrogen/Creatinine [Mass ratio] 19.9 mg/mg 10-20 [facility] [place] Laboratory - Hematology and Cell countsOrdered By: Rian Romero on 10-26-2023 MCH (RBC) [Entitic mass] 26.3 pg 27.0-32.0 [facility] MCHC (RBC) [Mass/Vol] 30.9 g/dL 32-36 [facility] Nucleated RBC/100 WBC (Bld) [Ratio] 0 % 0-5 [facility] Platelet mean volume (Bld) [Entitic vol] 10.4 fL 6.2-12.0 [facility] Platelets (Bld) [#/Vol] 300 10*3/uL 150-450 [facility] Mucus LM Ql (Urine sed)Order ed By: Rian Romero on 10-26-2023 Mucus Ql (Urine sed) 0 SEEN /hpf [facility] Nitrite Test strip Ql (U)Ord ered By: Rian Romero on 10-26-2023 Nitrite Ql (U) Negative Negative [facility] No Panel InformationOrdered By: Rian Romero on 10-26-2023 Estimated GFR (MDRD) Amer 115 mL/min >60 [facility] Comment on above: GFR Calc Estimated GFR (MDRD) Non-Af Amer 95 mL/min >60 [facility] [place] Comment on above: Non- GFR Calc Urine Microalbumin/Creatinine Ratio 9.9 mg/g CRE <30 [facility] [place] Urine RBC 0 SEEN /hpf 0-5 [facility] Vitamin D 25-Hydroxy 42.7 ng/mL [facility] Comment on above: Vitamin D 25(OH) Sta tus Range Deficiency <20 ng/mL (50nmol/L) Insufficiency 20 - 30 ng/mL (50 - 75 nmol/L) Sufficiency 30 - 100 ng/mL (75 - 250 nmol/L) Toxicity >100 ng/mL (>250 nmol/L) VLDL Cholesterol 22 mg/dL 5-40 [facility] Protein Test strip Ql (U)Ord ered By: Rian Romero on 10-26-2023 Protein Ql (U) Negative Negative [facility] RBC Auto (Bld) [#/Vol]Ordere d By: Rian Romero on 10-26-2023 RBC (Bld) [#/Vol] 4.76 10*6/uL 4.2-5.4 [facility] Serum or plasma calcium jennifer urement (mass/volume)Ordered By: Rian Romero on 10-26-2023 Calcium [Mass/Vol] 9.5 mg/dL 8.5-10.1 [facility] Serum or plasma creatinine m easurement (mass/volume)Ordered By: Rian Romero on 10-26-2023 Creatinine [Mass/Vol] 0.65 mg/dL 0.55-1.02 [facility] Comment on above: The validity of the calculated GFR & GFRAA in patients over 70 years has not been determined. Clinical correlation is essential. Serum or plasma urea nitroge n measurement (mass/volume)Ordered By: Rian Romero on 10-26-2023 Urea nitrogen [Mass/Vol] 13 mg/dL 7-18 [facility] [place] Squamous epithelial cells de tection in urine sediment by light microscopyOrdered By: Rian Romero on 10-26-2023 Epithelial cells.squamous LM Ql (Urine sed) 0-5 SEEN /hpf 5-10 [facility] Thin prep Papanicolaou smear with manual screeningOrdered By: Rian Romero on 10-26-2023 Thin prep Papanicolaou smear with manual screening 3.4 g/dL 3.2-5.0 [facility] Thin prep Papanicolaou smear with manual screening 18 U/L 15-37 [facility] [place] Thin prep Papanicolaou smear with manual screening 4 5-15 [facility] Thin prep Papanicolaou smear with manual screening 12.6 mg/L NO RANGE EST. [facility] Urine blood detectionOrdered By: Rian Romero on 10-26-2023 RBC Ql (U) Negative Negative [facility] Urine clarityOrdered By: Baldomero Romero on 10-26-2023 Clarity (U) Clear Clear [facility] Urine color determinationOrd ered By: Rian Romero on 10-26-2023 Color (U) Yellow Yellow [facility] Urine creatinine measurement (mass/volume)Ordered By: Rian Romero on 10-26-2023 Creatinine (U) [Mass/Vol] 127.00 mg/dL NO RANGE EST. [facility] [place] Urine glucose detectionOrder ed By: Rian Romero on 10-26-2023 Glucose Ql (U) Normal mg/dl Normal [facility] [place] Urine leukocyte esterase det ection by dipstickOrdered By: Rian Romero on 10-26-2023 Leukocyte esterase Test strip Ql (U) 25 /ul Negative [facility] [place] Urine pHOrdered By: Rian glover on 10-26-2023 pH (U) 6.0 [pH] 5.0 - 8.0 [facility] [place] Urine sediment bacteria coun t by microscopy (number/high power field)Ordered By: Rian Romero on 10-26-2023 Bacteria LM.HPF (Urine sed) [#/Area] 2 /[HPF] None Seen [facility] Urine specific gravity measu rementOrdered By: Rian Romero on 10-26-2023 Specific gravity (U) [Rel density] 1.015 1.002-1.03 0 [facility] [place] Urine urobilinogen measureme ntOrdered By: Rian Romero on 10-26-2023 Urobilinogen Ql (U) 1 mg/dl Normal [facility] Whole blood hemoglobin A1c/t otal hemoglobin ratio (mass fraction)Ordered By: Rian Romero on 10-26-2023 HbA1c (Bld) [Mass fraction] 6.2 % 3.8-5.6 [facility] Comment on above: Normal < 5.7 % Predi abetic 5.7 - 6.4 % Diabetic >or= 6.5 % Please note range changes. .Auto Diffon 07-27-2023 Basophil, Absolute 0.0 10 3/mcL Normal 0.0-0.2 [facility] ([place]) Comment on above: Performed By: #### A BOG, ALB, BMP, ADIFF, ANEU, ANSG, CBC, GFR, A1C #### [address] [address] Basophils/100 WBC (Bld) 0.3 % Normal 0.0-2.5 A [facility] ([place]) Comment on above: Performed By: #### A BOG, ALB, BMP, ADIFF, ANEU, ANSG, CBC, GFR, A1C #### [address] [address] Eosinophil, Absolute 0.0 10 3/mcL Normal 0.0-0.4 [facility] ([place]) Comment on above: Performed By: #### A BOG, ALB, BMP, ADIFF, ANEU, ANSG, CBC, GFR, A1C #### [address] [address] Eosinophils/100 WBC (Bld) 0.1 % Normal 0.0-7.0 [facility] ([place]) Comment on above: Performed By: #### A BOG, ALB, BMP, ADIFF, ANEU, ANSG, CBC, GFR, A1C #### [address] [address] Lymphocyte, Absolute 1.2 10 3/mcL Normal 0.8-3.9 [facility] ([place]) Comment on above: Performed By: #### A BOG, ALB, BMP, ADIFF, ANEU, ANSG, CBC, GFR, A1C #### [address] [address] Lymphocytes/100 WBC (Bld) 9.9 % Low 10.0-50.0 [facility] ([place]) Comment on above: Performed By: #### A BOG, ALB, BMP, ADIFF, ANEU, ANSG, CBC, GFR, A1C #### [address] [address] Monocyte, Absolute 1.1 10 3/mcL High 0.2-1.0 [facility] ([place]) Comment on above: Performed By: #### A BOG, ALB, BMP, ADIFF, ANEU, ANSG, CBC, GFR, A1C #### [address] [address] Monocytes/100 WBC (Bld) 9.5 % Normal 1.7-13.0 A [facility] ([place]) Comment on above: Performed By: #### A BOG, ALB, BMP, ADIFF, ANEU, ANSG, CBC, GFR, A1C #### [address] [address] Neutrophils/100 WBC (Bld) 80.2 % High 37.0-80.0 [facility] ([place]) Comment on above: Performed By: #### A BOG, ALB, BMP, ADIFF, ANEU, ANSG, CBC, GFR, A1C #### [address] [address] .GFRon 07-27-2023 GFR Non- 83 ml/min/1.73sqm Normal [facility] ([place]) Comment on above: Result Comment: GFR Population mean for , Non- Americans Ages 20-29 = 116 mL/min/1.73 sq.m. Ages 30-39 = 107 mL/min/1.73 sq.m. Ages 40-49 = 99 mL/min/1.73 sq.m. Ages 50-59 = 93 mL/min/1.73 sq.m. Ages 60-69 = 85 mL/min/1.73 sq.m. Ages 70+ = 75 mL/min/1.73 sq.m. Chronic Kidney Disease: Less than 60 mL/min/1.73 square meters End Stage Renal Disease: Less than 15 mL/min/1.73 square meters Performed By: #### A BOG, ALB, BMP, ADIFF, ANEU, ANSG, CBC, GFR, A1C #### [place] [id number] [place], [place] [address] GFR 101 ml/min/1.73sqm Normal [facility] ([place]) Comment on above: Result Comment: GFR Population mean for , Non- Americans Ages 20-29 = 116 mL/min/1.73 sq.m. Ages 30-39 = 107 mL/min/1.73 sq.m. Ages 40-49 = 99 mL/min/1.73 sq.m. Ages 50-59 = 93 mL/min/1.73 sq.m. Ages 60-69 = 85 mL/min/1.73 sq.m. Ages 70+ = 75 mL/min/1.73 sq.m. Chronic Kidney Disease: Less than 60 mL/min/1.73 square meters End Stage Renal Disease: Less than 15 mL/min/1.73 square meters Performed By: #### A BOG, ALB, BMP, ADIFF, ANEU, ANSG, CBC, GFR, A1C #### [address] [address] .NEUABSon 07-27-2023 Neutrophil, Absolute 9.4 10 3/mcL High 2.9-6.2 [facility] ([place]) Comment on above: Performed By: #### A BOG, ALB, BMP, ADIFF, ANEU, ANSG, CBC, GFR, A1C #### [address] [address] BMPon 07-27-2023 BUN/Creatinine Ratio 21 ratio Normal 7-27 [facility] ([place]) Comment on above: Performed By: #### A BOG, ALB, BMP, ADIFF, ANEU, ANSG, CBC, GFR, A1C #### [address] [address] Calcium [Mass/Vol] 9.4 mg/dL Normal 8.4-10.2 [facility] ([place]) Comment on above: Performed By: #### A BOG, ALB, BMP, ADIFF, ANEU, ANSG, CBC, GFR, A1C #### [address] [address] Chloride [Moles/Vol] 104 mmol/L Normal 98-107 [facility] ([place]) Comment on above: Performed By: #### A BOG, ALB, BMP, ADIFF, ANEU, ANSG, CBC, GFR, A1C #### [address] [address] CO2 [Moles/Vol] 30 mmol/L Normal 23-31 [facility] ([place]) Comment on above: Performed By: #### A BOG, ALB, BMP, ADIFF, ANEU, ANSG, CBC, GFR, A1C #### [address] [address] Creatinine [Mass/Vol] 0.70 mg/dL Normal 0.55-1.02 [facility] ([place]) Comment on above: Performed By: #### A BOG, ALB, BMP, ADIFF, ANEU, ANSG, CBC, GFR, A1C #### [address] [address] Electrolyte Balance 9.0 mEq/L Normal 4.0-15.0 [facility] ([place]) Comment on above: Performed By: #### A BOG, ALB, BMP, ADIFF, ANEU, ANSG, CBC, GFR, A1C #### [address] [address] Glucose [Mass/Vol] 151 mg/dL High 80-115 [facility] ([place]) Comment on above: Performed By: #### A BOG, ALB, BMP, ADIFF, ANEU, ANSG, CBC, GFR, A1C #### [address] [address] Potassium [Moles/Vol] 5.4 mmol/L High 3.5-5.1 [facility] ([place]) Comment on above: Performed By: #### A BOG, ALB, BMP, ADIFF, ANEU, ANSG, CBC, GFR, A1C #### [address] [address] Sodium [Moles/Vol] 143 mmol/L Normal 136-145 [facility] ([place]) Comment on above: Performed By: #### A BOG, ALB, BMP, ADIFF, ANEU, ANSG, CBC, GFR, A1C #### [address] [address] Urea nitrogen [Mass/Vol] 15 mg/dL Normal 7-18 [facility] ([place] Comment on above: Performed By: #### A BOG, ALB, BMP, ADIFF, ANEU, ANSG, CBC, GFR, A1C #### [address] [address] CBCon 07-27-2023 Erythrocyte distribution width (RBC) [Ratio] 14.9 % High 11.5-14.5 [facility] ([place]) Comment on above: Performed By: #### A BOG, ALB, BMP, ADIFF, ANEU, ANSG, CBC, GFR, A1C #### [address] [address] Hematocrit (Bld) [Volume fraction] 32.2 % Low 37.0-47.0 [facility] ([place] Comment on above: Performed By: #### A BOG, ALB, BMP, ADIFF, ANEU, ANSG, CBC, GFR, A1C #### [address] [address] Hgb 11.0 G/dL Low 12.0-16.0 [facility] ([place]) Comment on above: Performed By: #### A BOG, ALB, BMP, ADIFF, ANEU, ANSG, CBC, GFR, A1C #### [place] [address] MCH (RBC) [Entitic mass] 27.3 pg Normal 27.0-31.2 [facility] ([place] Comment on above: Performed By: #### A BOG, ALB, BMP, ADIFF, ANEU, ANSG, CBC, GFR, A1C #### [place] [address] MCHC 34.1 G/dL Normal 33.0-37.0 [facility] ([place] Comment on above: Performed By: #### A BOG, ALB, BMP, ADIFF, ANEU, ANSG, CBC, GFR, A1C #### [place] [address] MCV (RBC) [Entitic vol] 80.3 fL Normal 80.0-94.0 A [facility] ([place]) Comment on above: Performed By: #### A BOG, ALB, BMP, ADIFF, ANEU, ANSG, CBC, GFR, A1C #### [place] [address] Platelet 276 10 3/mcL Normal 130-400 [facility] ([place] Comment on above: Performed By: #### A BOG, ALB, BMP, ADIFF, ANEU, ANSG, CBC, GFR, A1C #### [address] [address] Platelet mean volume (Bld) [Entitic vol] 7.9 fL Normal 7.4-10.4 [facility] ([place] Comment on above: Performed By: #### A BOG, ALB, BMP, ADIFF, ANEU, ANSG, CBC, GFR, A1C #### [address] [address] RBC 4.01 10 6/mcL Low 4.20-5.40 [facility] ([place] Comment on above: Performed By: #### A BOG, ALB, BMP, ADIFF, ANEU, ANSG, CBC, GFR, A1C #### [address] [address] WBC 11.7 10 3/mcL High 4.6-10.8 [facility] ([place] Comment on above: Performed By: #### A BOG, ALB, BMP, ADIFF, ANEU, ANSG, CBC, GFR, A1C #### [address] [address] Adi 07-27-2023 Potassium [Moles/Vol] 4.4 mmol/L Normal 3.5-5.1 [facility] ([place]) Comment on above: Performed By: #### K #### [address] [address] Gel ABOon 07-26-2023 ABO/Rh Interp Negative Invalid Interpretation Code [facility] ([place]) Comment on above: Performed By: #### A BOG, ALB, BMP, ADIFF, ANEU, ANSG, CBC, GFR, A1C #### [address] [address] Gel ABSon 07-26-2023 Antibody Screen Gel Negative Normal [facility] ([place]) Comment on above: Performed By: #### A BOG, ALB, BMP, ADIFF, ANEU, ANSG, CBC, GFR, A1C #### [address] [address] XR KNEE 1 OR 2 VIEWS LEFTon 07-26-2023 XR KNEE 1 OR 2 VIEWS LEFT ORIGINAL HISTORY: Postop COMPARISON: No FINDINGS: There is an arthroplasty in near anatomic alignment. There is no radiographic evidence of loosening or failure of hardware. There is gas in the soft tissues and there is air-fluid level in the joint space. There is skin david. IMPRESSION: Arthroplasty with immediate postoperative changes. Interpreted by: Matthew Peña MD Preliminary Report By: Matthew Peña MD Electronically signed By Matthew Peña MD Dictated Date: 07/26/2023 11:26:55 AM Prelim Date: 07/26/2023 11:27:39 AM Sign Date: 07/26/2023 11:27:39 AM Ordering Provider: ABHI James [facility] ([place]) Laboratory - Chemistry and C hemistry - challengeOrdered By: Rian Romero on 07-08-2023 Cobalamin (Vitamin B12) [Mass/Vol] 501 pg/mL 211-911 [facility] No Panel InformationOrdered By: Rian Romero on 07-08-2023 Vitamin B6 Level 7.9 ug/L 3.4-65.2 [facility] Comment on above: Deficiency: <3.4 Mar ginal: 3.4 - 5.1 Adequate: >5.1Performed at: - [facility] [id number] Director: Linda Hayden MD, Phone: [phone] Serum or plasma folate measu rement (mass/volume)Ordered By: Rian Romero on 07-08-2023 Folate [Mass/Vol] 24.50 ng/mL 3.1-55.4 [facility] Comment on above: Slight Hemolysis, Re sult may be falsely increased. .Auto Diffon 07-06-2023 Basophil, Absolute 0.0 10 3/mcL Normal 0.0-0.2 [facility] ([place]) Comment on above: Performed By: #### A BOG, ALB, BMP, ADIFF, ANEU, ANSG, CBC, GFR, A1C #### [address] [place], [place] [address] Basophils/100 WBC (Bld) 0.5 % Normal 0.0-2.5 A [facility] ([place]) Comment on above: Performed By: #### A BOG, ALB, BMP, ADIFF, ANEU, ANSG, CBC, GFR, A1C #### [address] [address] Eosinophil, Absolute 0.2 10 3/mcL Normal 0.0-0.4 [facility] ([place]) Comment on above: Performed By: #### A BOG, ALB, BMP, ADIFF, ANEU, ANSG, CBC, GFR, A1C #### [address] [address] Eosinophils/100 WBC (Bld) 2.4 % Normal 0.0-7.0 [facility] ([place]) Comment on above: Performed By: #### A BOG, ALB, BMP, ADIFF, ANEU, ANSG, CBC, GFR, A1C #### [address] [address] Lymphocyte, Absolute 1.8 10 3/mcL Normal 0.8-3.9 [facility] ([place]) Comment on above: Performed By: #### A BOG, ALB, BMP, ADIFF, ANEU, ANSG, CBC, GFR, A1C #### [address] [address] Lymphocytes/100 WBC (Bld) 23.8 % Normal 10.0-50.0 [facility] ([place]) Comment on above: Performed By: #### A BOG, ALB, BMP, ADIFF, ANEU, ANSG, CBC, GFR, A1C #### [address] [address] Monocyte, Absolute 0.6 10 3/mcL Normal 0.2-1.0 [facility] ([place]) Comment on above: Performed By: #### A BOG, ALB, BMP, ADIFF, ANEU, ANSG, CBC, GFR, A1C #### [address] [address] Monocytes/100 WBC (Bld) 8.6 % Normal 1.7-13.0 [facility] ([place]) Comment on above: Performed By: #### A BOG, ALB, BMP, ADIFF, ANEU, ANSG, CBC, GFR, A1C #### [address] [address] Neutrophils/100 WBC (Bld) 64.7 % Normal 37.0-80.0 [facility] ([place]) Comment on above: Performed By: #### A BOG, ALB, BMP, ADIFF, ANEU, ANSG, CBC, GFR, A1C #### [address] [address] .GFRon 07-06-2023 GFR 103 ml/min/1.73sqm Normal [facility] ([place]) Comment on above: Result Comment: GFR Population mean for , Non- Americans Ages 20-29 = 116 mL/min/1.73 sq.m. Ages 30-39 = 107 mL/min/1.73 sq.m. Ages 40-49 = 99 mL/min/1.73 sq.m. Ages 50-59 = 93 mL/min/1.73 sq.m. Ages 60-69 = 85 mL/min/1.73 sq.m. Ages 70+ = 75 mL/min/1.73 sq.m. Chronic Kidney Disease: Less than 60 mL/min/1.73 square meters End Stage Renal Disease: Less than 15 mL/min/1.73 square meters Performed By: #### A BOG, ALB, BMP, ADIFF, ANEU, ANSG, CBC, GFR, A1C #### [address] [address] GFR Non- 85 ml/min/1.73sqm Normal [facility] ([place]) Comment on above: Result Comment: GFR Population mean for , Non- Americans Ages 20-29 = 116 mL/min/1.73 sq.m. Ages 30-39 = 107 mL/min/1.73 sq.m. Ages 40-49 = 99 mL/min/1.73 sq.m. Ages 50-59 = 93 mL/min/1.73 sq.m. Ages 60-69 = 85 mL/min/1.73 sq.m. Ages 70+ = 75 mL/min/1.73 sq.m. Chronic Kidney Disease: Less than 60 mL/min/1.73 square meters End Stage Renal Disease: Less than 15 mL/min/1.73 square meters Performed By: #### A BOG, ALB, BMP, ADIFF, ANEU, ANSG, CBC, GFR, A1C #### [address] [address] .NEUABSon 07-06-2023 Neutrophil, Absolute 4.8 10 3/mcL Normal 2.9-6.2 [facility] ([place]) Comment on above: Performed By: #### A BOG, ALB, BMP, ADIFF, ANEU, ANSG, CBC, GFR, A1C #### [address] [address] A1Con 07-06-2023 HbA1c (Bld) [Mass fraction] 6.6 % High 4.3-6.4 [facility] ([place] Comment on above: Performed By: #### A BOG, ALB, BMP, ADIFF, ANEU, ANSG, CBC, GFR, A1C #### [address] [address] ALBon 07-06-2023 Albumin Level 3.2 G/dL Low 3.4-4.8 [facility] ([place]) Comment on above: Performed By: #### A BOG, ALB, BMP, ADIFF, ANEU, ANSG, CBC, GFR, A1C #### [address] [address] BMPon 07-06-2023 BUN/Creatinine Ratio 16 ratio Normal 7-27 [facility] ([place]) Comment on above: Performed By: #### A BOG, ALB, BMP, ADIFF, ANEU, ANSG, CBC, GFR, A1C #### [address] [address] Calcium [Mass/Vol] 9.5 mg/dL Normal 8.4-10.2 [facility] ([place]) Comment on above: Performed By: #### A BOG, ALB, BMP, ADIFF, ANEU, ANSG, CBC, GFR, A1C #### [address] [address] Chloride [Moles/Vol] 104 mmol/L Normal 98-107 [facility] ([place]) Comment on above: Performed By: #### A BOG, ALB, BMP, ADIFF, ANEU, ANSG, CBC, GFR, A1C #### [address] [address] CO2 [Moles/Vol] 30 mmol/L Normal 23-31 [facility] ([place]) Comment on above: Performed By: #### A BOG, ALB, BMP, ADIFF, ANEU, ANSG, CBC, GFR, A1C #### [address] [address] Creatinine [Mass/Vol] 0.69 mg/dL Normal 0.55-1.02 [facility] ([place]) Comment on above: Performed By: #### A BOG, ALB, BMP, ADIFF, ANEU, ANSG, CBC, GFR, A1C #### [address] [address] Electrolyte Balance 9.0 mEq/L Normal 4.0-15.0 [facility] ([place]) Comment on above: Performed By: #### A BOG, ALB, BMP, ADIFF, ANEU, ANSG, CBC, GFR, A1C #### [address] [address] Glucose [Mass/Vol] 131 mg/dL High 80-115 [facility] ([place]) Comment on above: Performed By: #### A BOG, ALB, BMP, ADIFF, ANEU, ANSG, CBC, GFR, A1C #### [address] [address] Potassium [Moles/Vol] 4.4 mmol/L Normal 3.5-5.1 [facility] ([place]) Comment on above: Performed By: #### A BOG, ALB, BMP, ADIFF, ANEU, ANSG, CBC, GFR, A1C #### [address] [address] Sodium [Moles/Vol] 143 mmol/L Normal 136-145 [facility] ([place]) Comment on above: Performed By: #### A BOG, ALB, BMP, ADIFF, ANEU, ANSG, CBC, GFR, A1C #### [address] [address] Urea nitrogen [Mass/Vol] 11 mg/dL Normal 7-18 [facility] ([place]) Comment on above: Performed By: #### A BOG, ALB, BMP, ADIFF, ANEU, ANSG, CBC, GFR, A1C #### [address] [address] CBCon 07-06-2023 Erythrocyte distribution width (RBC) [Ratio] 14.9 % High 11.5-14.5 [facility] ([place]) Comment on above: Order Comment: Pre-A dmission Testing Performed By: #### A BOG, ALB, BMP, ADIFF, ANEU, ANSG, CBC, GFR, A1C #### [address] [address] Hematocrit (Bld) [Volume fraction] 37.2 % Normal 37.0-47.0 [facility] ([place]) Comment on above: Order Comment: Pre-A dmission Testing Performed By: #### A BOG, ALB, BMP, ADIFF, ANEU, ANSG, CBC, GFR, A1C #### [address] [address] Hgb 12.5 G/dL Normal 12.0-16.0 [facility] ([place]) Comment on above: Order Comment: Pre-A dmission Testing Performed By: #### A BOG, ALB, BMP, ADIFF, ANEU, ANSG, CBC, GFR, A1C #### [address] [address] MCH (RBC) [Entitic mass] 27.2 pg Normal 27.0-31.2 [facility] ([place]) Comment on above: Order Comment: Pre-A dmission Testing Performed By: #### A BOG, ALB, BMP, ADIFF, ANEU, ANSG, CBC, GFR, A1C #### [address] [address] MCHC 33.6 G/dL Normal 33.0-37.0 [facility] ([place]) Comment on above: Order Comment: Pre-A dmission Testing Performed By: #### A BOG, ALB, BMP, ADIFF, ANEU, ANSG, CBC, GFR, A1C #### [address] [address] MCV (RBC) [Entitic vol] 80.9 fL Normal 80.0-94.0 A [facility] ([place]) Comment on above: Order Comment: Pre-A dmission Testing Performed By: #### A BOG, ALB, BMP, ADIFF, ANEU, ANSG, CBC, GFR, A1C #### [address] [address] Platelet 280 10 3/mcL Normal 130-400 [facility] ([place]) Comment on above: Order Comment: Pre-A dmission Testing Performed By: #### A BOG, ALB, BMP, ADIFF, ANEU, ANSG, CBC, GFR, A1C #### [address] [address] Platelet mean volume (Bld) [Entitic vol] 8.0 fL Normal 7.4-10.4 [facility] ([place]) Comment on above: Order Comment: Pre-A dmission Testing Performed By: #### A BOG, ALB, BMP, ADIFF, ANEU, ANSG, CBC, GFR, A1C #### [address] [address] RBC 4.60 10 6/mcL Normal 4.20-5.40 [facility] ([place]) Comment on above: Order Comment: Pre-A dmission Testing Performed By: #### A BOG, ALB, BMP, ADIFF, ANEU, ANSG, CBC, GFR, A1C #### [address] [address] WBC 7.4 10 3/mcL Normal 4.6-10.8 [facility] ([place]) Comment on above: Order Comment: Pre-A dmission Testing Performed By: #### A BOG, ALB, BMP, ADIFF, ANEU, ANSG, CBC, GFR, A1C #### [address] [address] [address] KNEE W/O CONTRAST LEFTon 07-06-2023 CT KNEE W/O CONTRAST LEFT ORIGINAL EXAMINATION: CT OF THE LEFT KNEE WITHOUT CONTRAST 07/06/2023 3:06 pm TECHNIQUE: CT of the left knee was performed without the administration of intravenous contrast. Multiplanar reformatted images are provided for review. Automated exposure control, iterative reconstruction, and/or weight based adjustment of the mA/kV was utilized to reduce the radiation dose to as low as reasonably achievable. COMPARISON: None. HISTORY ORDERING SYSTEM PROVIDED HISTORY: Reason for Exam: varus deformity, not elsewhere classified, left knee FINDINGS: Survey images of the left hip: No aggressive bony lesions. Degenerative changes. Left knee: A joint effusion seen. Tricompartmental degenerative changes are most severe in the medial tibiofemoral compartment and patellofemoral compartment. Loose intra-articular bodies are most prevalent in the anterior joint recess measuring up to 9 mm. Subchondral cysts noted along the articular surfaces of the knee. No aggressive bony lesion. Varicose veins noted in the leg. Survey images left ankle: No aggressive bony lesion IMPRESSION: Tricompartmental degenerative changes with joint effusion and loose intra-articular bodies. Interpreted by: Mateo Garcia MD Preliminary Report By: Mateo Garcia MD Electronically signed By Mateo Garcia MD Dictated Date: 07/06/2023 4:36:56 PM Prelim Date: 07/06/2023 4:41:25 PM Sign Date: 07/06/2023 4:41:25 PM Ordering Provider: ABHI AMIN Normal [facility] ([place]) Gel ABOon 07-06-2023 ABO/Rh Interp Negative Invalid Interpretation Code [facility]) Comment on above: Performed By: #### A BOG, ALB, BMP, ADIFF, ANEU, ANSG, CBC, GFR, A1C #### [address] [address] Gel ABSon 07-06-2023 Antibody Screen Gel Negative Normal [facility] ([place]) Comment on above: Performed By: #### A BOG, ALB, BMP, ADIFF, ANEU, ANSG, CBC, GFR, A1C #### [address] [address] LABORATORYOrdered By: Sharon Miller on 07-06-2023 ABO/Rh Interp Negative Invalid Interpretation Code AO BB SS Antibody Screen Gel Negative ABSC (07/06/23 2:29 PM) Normal AO BB SS LABORATORYOrdered By: SYSTEM SYSTEM on 07-06-2023 Albumin BCP dye [Mass/Vol] 3.2 G/dL Low 3.4 - 4.8 G/dL AO ADM SS Basophil, Absolute 0.0 103/mcL Normal 0.0 - 0.2 10^3/mcL AO Workflow SS Basophils/100 WBC (Bld) 0.5 % Normal 0.0 - 2.5 % AO Workflow SS Calcium [Mass/Vol] 9.5 mg/dL Normal 8.4 - 10. 2 mg/dL AO ADM SS Chloride [Moles/Vol] 104 mmol/L Normal 98 - 10 7 mmol/L AO ADM SS CO2 [Moles/Vol] 30 mmol/L Normal 23 - 31 mmol/L AO ADM SS Creatinine [Mass/Vol] 0.69 mg/dL Normal 0.55 - 1.02 mg/dL AO ADM SS Electrolyte Balance 9.0 mEq/L Normal 4.0 - 15 .0 mEq/L AO ADM SS Eosinophil, Absolute 0.2 103/mcL Normal 0.0 - 0 .4 10^3/mcL AO Workflow SS Eosinophils/100 WBC (Bld) 2.4 % Normal 0.0 - 7.0 % AO Workflow SS Erythrocyte distribution width (RBC) [Ratio] 14.9 % High 11.5 - 14.5 % AO Workflow SS GFR/1.73 sq M.predicted among blacks MDRD (S/P/Bld) [Vol rate/Area] 103 ml/min/1.73sqm Invalid Interpretation Code AO Chemistry S Comment on above: Interpretive Data: GFR Population mean for , Non- Americans Ages 20-29 = 116 mL/min/1.73 sq.m. Ages 30-39 = 107 mL/min/1.73 sq.m. Ages 40-49 = 99 mL/min/1.73 sq.m. Ages 50-59 = 93 mL/min/1.73 sq.m. Ages 60-69 = 85 mL/min/1.73 sq.m. Ages 70+ = 75 mL/min/1.73 sq.m. Chronic Kidney Disease: Less than 60 mL/min/1.73 square meters End Stage Renal Disease: Less than 15 mL/min/1.73 square meters GFR/1.73 sq M.predicted among non-blacks MDRD (S/P/Bld) [Vol rate/Area] 85 ml/min/1.73sqm Invalid Interpretation Code AO Chemistry S Comment on above: Interpretive Data: GFR Population mean for , Non- Americans Ages 20-29 = 116 mL/min/1.73 sq.m. Ages 30-39 = 107 mL/min/1.73 sq.m. Ages 40-49 = 99 mL/min/1.73 sq.m. Ages 50-59 = 93 mL/min/1.73 sq.m. Ages 60-69 = 85 mL/min/1.73 sq.m. Ages 70+ = 75 mL/min/1.73 sq.m. Chronic Kidney Disease: Less than 60 mL/min/1.73 square meters End Stage Renal Disease: Less than 15 mL/min/1.73 square meters Glucose [Mass/Vol] 131 mg/dL High 80 - 115 mg/dL AO ADM SS HbA1c (Bld) [Mass fraction] 6.6 % High 4.3 - 6.4 % AO ADM SS Hematocrit (Bld) [Volume fraction] 37.2 % Normal 37.0 - 47.0 % AO Workflow SS Hemoglobin (Bld) [Mass/Vol] 12.5 G/dL Normal 12.0 - 16.0 G/dL AO Workflow SS Lymphocyte, Absolute 1.8 103/mcL Normal 0.8 - 3 .9 10^3/mcL AO Workflow SS Lymphocytes/100 WBC (Bld) 23.8 % Normal 10.0 - 50.0 % AO Workflow SS MCH (RBC) [Entitic mass] 27.2 pg Normal 27. 0 - 31.2 pg AO Workflow SS MCHC 33.6 G/dL Normal 33.0 - 37.0 G/dL AO Workflow SS MCV (RBC) [Entitic vol] 80.9 fL Normal 80.0 - 94.0 fL AO Workflow SS Monocyte, Absolute 0.6 103/mcL Normal 0.2 - 1.0 10^3/mcL AO Workflow SS Monocytes/100 WBC (Bld) 8.6 % Normal 1.7 - 13.0 % AO Workflow SS Neutrophil, Absolute 4.8 103/mcL Normal 2.9 - 6 .2 10^3/mcL AO Workflow SS Neutrophils/100 WBC (Bld) 64.7 % Normal 37.0 - 80.0 % AO Workflow SS Platelet mean volume (Bld) [Entitic vol] 8.0 fL Normal 7.4 - 10.4 fL AO Workflow SS Platelets (Bld) [#/Vol] 280 103/mcL Normal 130 - 400 10^3/mcL AO Workflow SS Potassium [Moles/Vol] 4.4 mmol/L Normal 3.5 - 5.1 mmol/L AO ADM SS RBC (Bld) [#/Vol] 4.60 106/mcL Normal 4.20 - 5.40 10^6/mcL AO Workflow SS Sodium [Moles/Vol] 143 mmol/L Normal 136 - 145 mmol/L AO ADM SS Urea nitrogen [Mass/Vol] 11 mg/dL Normal 7 - 18 mg/dL AO ADM SS Urea nitrogen/Creatinine [Mass ratio] 16 ratio Normal 7 - 27 ratio AO ADM SS WBC (Bld) [#/Vol] 7.4 103/mcL Normal 4.6 - 10.8 10^3/mcL AO Workflow SS LABORATORYOrdered By: Gildardo Peralta on 07-06-2023 MRSA (PCR) Not Detected 1 (07/06/23 2:29 PM) Normal Not Detected Auto Viro/Sero SS Comment on above: Result Comment: [place] [id number] MRSA PCR Int MRSA DNA not detecte d by Real-Time Polymerase Chain Reaction (PCR). A negative result may be due to intermittent colonization. Colonization may vary depending on patient treatment, patient status, or exposure to high-risk environments.As with all PCR based in vitro diagnostic tests, extremely low levels of target below the limit of detection of the assay may be detected, but results may not be reproducible. Invalid Interpretation Code Auto Viro/Sero SS MRSAPCRon 07-06-2023 MRSA (PCR) Not detected Normal Not Detected [facility] ([place]) Comment on above: Result Comment: [place] [id number] Performed By: #### A BOG, ALB, BMP, ADIFF, ANEU, ANSG, CBC, GFR, A1C #### [id number] [place], [place] [address] MRSA PCR Int Normal [facility] ([place]) Comment on above: Result Comment: MRSA DNA not detected by Real-Time Polymerase Chain Reaction (PCR). A negative result may be due to intermittent colonization. Colonization may vary depending on patient treatment, patient status, or exposure to high-risk environments. As with all PCR based in vitro diagnostic tests, extremely low levels of target below the limit of detection of the assay may be detected, but results may not be reproducible. See Below Performed By: #### A BOG, ALB, BMP, ADIFF, ANEU, ANSG, CBC, GFR, A1C #### [id number] [place], [place] [address] Absolute lymphocyte countOrd ered By: Rian Romero on 04-14-2023 Lymphocytes Auto (Unsp spec) [#/Vol] 2.09 10*3/uL 0.83-4.51 [facility] Basophil percentageOrdered B y: Rian Romero on 04-14-2023 Basophils/100 WBC (Bld) 1.0 % 0-1 [facility] Bilirubin [Mass/Vol] 0.50 mg/dL 0.20-1.[address] [facility] Comment on above: For patients on eltr ombopag therapy, use of Dimension [place] TBIL is not recommended. Chloride [Moles/Vol] 105 mmol/L 98-[address] [facility] Cholesterol [Mass/Vol] 127 mg/dL <200 [facility] Comment on above: <200 mg/dL Desirable 200-240 mg/dL Borderline >240 mg/dL High Risk Eosinophils/100 WBC (Bld) 3.1 % 0-5 [facility] Glucose [Mass/Vol] 87 mg/dL 74-106 [facility] Neutrophils (Bld) [#/Vol] 3.0 10*3/uL 2.0-7.7 [facility] Neutrophils/100 WBC (Bld) 50.5 % 47-70 [facility] Potassium [Moles/Vol] 4.2 mmol/L 3.5-5.1 [facility] Protein [Mass/Vol] 7.9 g/dL 6.4-8.2 [facility] Sodium [Moles/Vol] 139 mmol/L 136-145 [facility] Triglyceride [Mass/Vol] 106 mg/dL <199 [facility] Comment on above: The drugs N-Acetylcy steine and Metamizole may falsely depress this assay.Serum Triglycerides Reference Interval Normal <150 mg/dL Borderline high 150 - 199 mg/dL High 200 - 499 mg/dL Very High > or = 500 mg/dL WBC (Bld) [#/Vol] 5.9 10*3/uL 4.4-11.0 [facility] Blood erythrocytes count (nu mber/volume)Ordered By: Rian Romero on 04-14-2023 RBC (Bld) [#/Vol] 4.68 10*6/uL 4.2-5.4 [facility] Blood hemoglobin measurement (mass/volume)Ordered By: Rian Romero on 04-14-2023 Hemoglobin (Bld) [Mass/Vol] 12.7 g/dL 12.0-15.0 [facility] Blood lymphocytes/100 leukoc ytesOrdered By: Rian Romero on 04-14-2023 Lymphocytes/100 WBC (Bld) 35.5 % 19-41 [facility] Blood monocytes/100 leukocyt esOrdered By: Rian Romero on 04-14-2023 Monocytes/100 WBC (Bld) 8.7 % 0-10 [facility] Blood platelet mean volumeOr dered By: Rian Romero on 04-14-2023 Platelet mean volume (Bld) [Entitic vol] 10.2 fL 6.2-12.0 [facility] Determination of erythrocyte mean corpuscular volume (MCV)Ordered By: Rian Romero on 04-14-2023 MCV (RBC) [Entitic vol] 87.8 fL 81-99 [facility] Hematocrit Auto (Bld) [Volum e fraction]Ordered By: Rian Romero on 04-14-2023 Hematocrit (Bld) [Volume fraction] 41.1 % 37-47 [facility] Laboratory - Chemistry and C hemistry - challengeOrdered By: Rian Romero on 04-14-2023 ALP [Catalytic activity/Vol] 104 U/L 45-117 [facility] ALT [Catalytic activity/Vol] 24 U/L 13-56 [facility] CO2 [Moles/Vol] 30.0 mmol/L 21.0-32.0 [facility] Globulin (S) [Mass/Vol] 4.4 g/dL 2.2-4.2 [facility] Magnesium [Mass/Vol] 2.1 mg/dL 1.6-2.[address] [facility] Urea nitrogen/Creatinine [Mass ratio] 21.3 mg/mg 10-20 [facility] Laboratory - Hematology and Cell countsOrdered By: Rian Romero on 04-14-2023 Erythrocyte distribution width (RBC) [Entitic vol] 41.9 fL 35.1-43.9 [facility] Erythrocyte distribution width (RBC) [Ratio] 13.1 % 11.6-14.6 [facility] Immature granulocytes/100 WBC (Bld) 1.200 % 0.0-0.9 [facility] Comment on above: IG% - Immature Granu locytes (promyelocytes, myelocytes and metamyelocytes) > 1% indicates that a LEFT SHIFT is Present. MCH (RBC) [Entitic mass] 27.1 pg 27.0-32.0 [facility] Nucleated RBC/100 WBC (Bld) [Ratio] 0 % 0-5 [facility] MCHC Auto (RBC) [Mass/Vol]Or dered By: Rian Romero on 04-14-2023 MCHC (RBC) [Mass/Vol] 30.9 g/dL 32-36 [facility] No Panel InformationOrdered By: Rian Romero on 04-14-2023 Estimated GFR (MDRD) Amer 125 mL/min >60 [facility] Comment on above: GFR Calc Estimated GFR (MDRD) Non-Af Amer 104 mL/min >60 [facility] Comment on above: Non- GFR Calc Thyroid Stimulating Hormone (TSH) 2.98 uIU/mL 0.358-3.74 [facility] Urine Microalbumin/Creatinine Ratio TNP [facility] Comment on above: Test not performed Vitamin D 25-Hydroxy 38.5 ng/mL [facility] Comment on above: Vitamin D 25(OH) Sta tus Range Deficiency <20 ng/mL (50nmol/L) Insufficiency 20 - 30 ng/mL (50 - 75 nmol/L) Sufficiency 30 - 100 ng/mL (75 - 250 nmol/L) Toxicity >100 ng/mL (>250 nmol/L) Platelets bldOrdered By: Baldomero Romero on 04-14-2023 Platelets (Bld) [#/Vol] 334 10*3/uL 150-450 [facility] Serum or plasma albumin jennifer urement (mass/volume)Ordered By: Rian Romero on 04-14-2023 Albumin [Mass/Vol] 3.5 g/dL 3.2-5.0 [facility] Serum or plasma albumin/glob ulin mass ratioOrdered By: Rian Romero on 04-14-2023 Albumin/Globulin [Mass ratio] 0.8 {ratio} 0.9-2.4 [facility] Serum or plasma calcium jennifer urement (mass/volume)Ordered By: Rian Romero on 04-14-2023 Calcium [Mass/Vol] 9.3 mg/dL 8.5-10.1 [facility] Serum or plasma cholesterol in HDL measurement (mass/volume)Ordered By: Rian Romero on 04-14-2023 Cholesterol in HDL [Mass/Vol] 58 mg/dL >40 [facility] Comment on above: The drugs N-Acetylcy steine and Metamizole may falsely depress this assay. Reference Range HDL <40 mg/dL Low HDL Cholesterol HDL >or= 60 mg/dL High HDL Cholesterol Serum or plasma cholesterol in VLDL measurement (mass/volume)Ordered By: Rian Romero on 04-14-2023 Cholesterol in VLDL [Mass/Vol] 21 mg/dL 5-40 [facility] Serum or plasma creatinine m easurement (mass/volume)Ordered By: Rian Romero on 04-14-2023 Creatinine [Mass/Vol] 0.61 mg/dL 0.55-1.02 [facility] Comment on above: The validity of the calculated GFR & GFRAA in patients over 70 years has not been determined. Clinical correlation is essential. Serum or plasma low density lipoprotein (LDL) cholesterol measurement (mass/volume)Ordered By: Rian Romero on 04-14-2023 Cholesterol in LDL [Mass/Vol] 48 mg/dL 0-130 [facility] Serum or plasma urea nitroge n measurement (mass/volume)Ordered By: Rian Romero on 04-14-2023 Urea nitrogen [Mass/Vol] 13 mg/dL 7-18 [facility] Thin prep Papanicolaou smear with manual screeningOrdered By: Rian Romero on 04-14-2023 Thin prep Papanicolaou smear with manual screening 11 U/L 15-37 [facility] Thin prep Papanicolaou smear with manual screening 4 5-15 [facility] Thin prep Papanicolaou smear with manual screening < 5.0 mg/L NO RANGE EST. [facility] Urine creatinine measurement (mass/volume)Ordered By: Rian Romero on 04-14-2023 Creatinine (U) [Mass/Vol] 51.20 mg/dL NO RANGE EST. [facility] Whole blood hemoglobin A1c/t otal hemoglobin ratio (mass fraction)Ordered By: Rian Romero on 04-14-2023 HbA1c (Bld) [Mass fraction] 5.8 % 3.8-5.6 [facility] Comment on above: Normal < 5.7 % Predi abetic 5.7 - 6.4 % Diabetic >or= 6.5 % Please note range changes. .Auto Diffon 02-16-2023 Basophil, Absolute 0.0 10 3/mcL Normal 0.0-0.2 [facility] ([place]) Comment on above: Performed By: #### A BOG, ALB, BMP, ADIFF, ANEU, ANSG, CBC, GFR, A1C #### [address] [address] Basophils/100 WBC (Bld) 0.2 % Normal 0.0-2.5 A [facility] ([place]) Comment on above: Performed By: #### A BOG, ALB, BMP, ADIFF, ANEU, ANSG, CBC, GFR, A1C #### [address] [address] Eosinophil, Absolute 0.0 10 3/mcL Normal 0.0-0.4 [facility] ([place]) Comment on above: Performed By: #### A BOG, ALB, BMP, ADIFF, ANEU, ANSG, CBC, GFR, A1C #### [address] [address] Eosinophils/100 WBC (Bld) 0.2 % Normal 0.0-7.0 [facility] ([place]) Comment on above: Performed By: #### A BOG, ALB, BMP, ADIFF, ANEU, ANSG, CBC, GFR, A1C #### [address] [address] Lymphocyte, Absolute 1.3 10 3/mcL Normal 0.8-3.9 [facility] ([place]) Comment on above: Performed By: #### A BOG, ALB, BMP, ADIFF, ANEU, ANSG, CBC, GFR, A1C #### [address] [address] Lymphocytes/100 WBC (Bld) 12.9 % Normal 10.0-50.0 [facility] ([place]) Comment on above: Performed By: #### A BOG, ALB, BMP, ADIFF, ANEU, ANSG, CBC, GFR, A1C #### [address] [address] Monocyte, Absolute 0.9 10 3/mcL Normal 0.2-1.0 [facility] ([place]) Comment on above: Performed By: #### A BOG, ALB, BMP, ADIFF, ANEU, ANSG, CBC, GFR, A1C #### [address] [address] Monocytes/100 WBC (Bld) 9.1 % Normal 1.7-13.0 A [facility] ([place]) Comment on above: Performed By: #### A BOG, ALB, BMP, ADIFF, ANEU, ANSG, CBC, GFR, A1C #### [address] [address] Neutrophils/100 WBC (Bld) 77.6 % Normal 37.0-80.0 [facility] ([place]) Comment on above: Performed By: #### A BOG, ALB, BMP, ADIFF, ANEU, ANSG, CBC, GFR, A1C #### [address] [address] .GFRon 02-16-2023 GFR 82 ml/min/1.73sqm Normal [facility] ([place]) Comment on above: Result Comment: GFR Population mean for , Non- Americans Ages 20-29 = 116 mL/min/1.73 sq.m. Ages 30-39 = 107 mL/min/1.73 sq.m. Ages 40-49 = 99 mL/min/1.73 sq.m. Ages 50-59 = 93 mL/min/1.73 sq.m. Ages 60-69 = 85 mL/min/1.73 sq.m. Ages 70+ = 75 mL/min/1.73 sq.m. Chronic Kidney Disease: Less than 60 mL/min/1.73 square meters End Stage Renal Disease: Less than 15 mL/min/1.73 square meters Performed By: #### A BOG, ALB, BMP, ADIFF, ANEU, ANSG, CBC, GFR, A1C #### [address] [address] GFR Non- 67 ml/min/1.73sqm Normal [facility] ([place]) Comment on above: Result Comment: GFR Population mean for , Non- Americans Ages 20-29 = 116 mL/min/1.73 sq.m. Ages 30-39 = 107 mL/min/1.73 sq.m. Ages 40-49 = 99 mL/min/1.73 sq.m. Ages 50-59 = 93 mL/min/1.73 sq.m. Ages 60-69 = 85 mL/min/1.73 sq.m. Ages 70+ = 75 mL/min/1.73 sq.m. Chronic Kidney Disease: Less than 60 mL/min/1.73 square meters End Stage Renal Disease: Less than 15 mL/min/1.73 square meters Performed By: #### A BOG, ALB, BMP, ADIFF, ANEU, ANSG, CBC, GFR, A1C #### [address] [address] .NEUABSon 02-16-2023 Neutrophil, Absolute 8.1 10 3/mcL High 2.9-6.2 [facility] ([place]) Comment on above: Performed By: #### A BOG, ALB, BMP, ADIFF, ANEU, ANSG, CBC, GFR, A1C #### [address] [address] BMPon 02-16-2023 BUN/Creatinine Ratio 23 ratio Normal 7-27 [facility] ([place]) Comment on above: Performed By: #### A BOG, ALB, BMP, ADIFF, ANEU, ANSG, CBC, GFR, A1C #### [address] [address] Calcium [Mass/Vol] 8.7 mg/dL Normal 8.4-10.2 [facility] ([place]) Comment on above: Performed By: #### A BOG, ALB, BMP, ADIFF, ANEU, ANSG, CBC, GFR, A1C #### [address] [address] Chloride [Moles/Vol] 105 mmol/L Normal 98-107 [facility] ([place]) Comment on above: Performed By: #### A BOG, ALB, BMP, ADIFF, ANEU, ANSG, CBC, GFR, A1C #### [address] [address] CO2 [Moles/Vol] 30 mmol/L Normal 23-31 [facility] ([place]) Comment on above: Performed By: #### A BOG, ALB, BMP, ADIFF, ANEU, ANSG, CBC, GFR, A1C #### [address] [address] Creatinine [Mass/Vol] 0.84 mg/dL Normal 0.55-1.02 [facility] ([place]) Comment on above: Performed By: #### A BOG, ALB, BMP, ADIFF, ANEU, ANSG, CBC, GFR, A1C #### [address] [address] Electrolyte Balance 4.0 mEq/L Normal 4.0-15.0 [facility] ([place]) Comment on above: Performed By: #### A BOG, ALB, BMP, ADIFF, ANEU, ANSG, CBC, GFR, A1C #### [address] [address] Glucose [Mass/Vol] 139 mg/dL High 80-115 [facility] ([place]) Comment on above: Performed By: #### A BOG, ALB, BMP, ADIFF, ANEU, ANSG, CBC, GFR, A1C #### [address] [address] Potassium [Moles/Vol] 4.2 mmol/L Normal 3.5-5.1 [facility] ([place]) Comment on above: Performed By: #### A BOG, ALB, BMP, ADIFF, ANEU, ANSG, CBC, GFR, A1C #### [address] [address] Sodium [Moles/Vol] 139 mmol/L Normal 136-145 [facility] ([place]) Comment on above: Performed By: #### A BOG, ALB, BMP, ADIFF, ANEU, ANSG, CBC, GFR, A1C #### [address] [address] Urea nitrogen [Mass/Vol] 19 mg/dL High 7-18 [facility] ([place]) Comment on above: Performed By: #### A BOG, ALB, BMP, ADIFF, ANEU, ANSG, CBC, GFR, A1C #### [address] [address] CBCon 02-16-2023 Erythrocyte distribution width (RBC) [Ratio] 14.5 % Normal 11.5-14.5 [facility] ([place]) Comment on above: Performed By: #### A BOG, ALB, BMP, ADIFF, ANEU, ANSG, CBC, GFR, A1C #### [address] [address] Hematocrit (Bld) [Volume fraction] 31.1 % Low 37.0-47.0 [facility] ([place]) Comment on above: Performed By: #### A BOG, ALB, BMP, ADIFF, ANEU, ANSG, CBC, GFR, A1C #### [address] [address] Hgb 10.6 G/dL Low 12.0-16.0 [facility] ([place]) Comment on above: Performed By: #### A BOG, ALB, BMP, ADIFF, ANEU, ANSG, CBC, GFR, A1C #### [address] [address] MCH (RBC) [Entitic mass] 27.7 pg Normal 27.0-31.2 [facility] ([place]) Comment on above: Performed By: #### A BOG, ALB, BMP, ADIFF, ANEU, ANSG, CBC, GFR, A1C #### [address] [address] MCHC 33.9 G/dL Normal 33.0-37.0 [facility] ([place]) Comment on above: Performed By: #### A BOG, ALB, BMP, ADIFF, ANEU, ANSG, CBC, GFR, A1C #### [address] [address] MCV (RBC) [Entitic vol] 81.5 fL Normal 80.0-94.0 A [facility] ([place]) Comment on above: Performed By: #### A BOG, ALB, BMP, ADIFF, ANEU, ANSG, CBC, GFR, A1C #### [address] [address] Platelet 235 10 3/mcL Normal 130-400 [facility] ([place]) Comment on above: Performed By: #### A BOG, ALB, BMP, ADIFF, ANEU, ANSG, CBC, GFR, A1C #### [address] [address] Platelet mean volume (Bld) [Entitic vol] 8.1 fL Normal 7.4-10.4 [facility] ([place]) Comment on above: Performed By: #### A BOG, ALB, BMP, ADIFF, ANEU, ANSG, CBC, GFR, A1C #### [address] [address] RBC 3.82 10 6/mcL Low 4.20-5.40 [facility] ([place]) Comment on above: Performed By: #### A BOG, ALB, BMP, ADIFF, ANEU, ANSG, CBC, GFR, A1C #### [address] [address] WBC 10.4 10 3/mcL Normal 4.6-10.8 [facility] ([place]) Comment on above: Performed By: #### A BOG, ALB, BMP, ADIFF, ANEU, ANSG, CBC, GFR, A1C #### [facility] [address], [place] [address] LABORATORYOrdered By: Katarzyna gonzalez on 02-16-2023 Blood Glucose Testing Reason Routine (02/16/23 12:29 PM) [facility] Work Phone: Glucose [Mass/Vol] 106 mg/dL Invalid Interpretation Code 82 - 115 mg/dL [facility] Work Phone: Blood Glucose Testing Reason Routine (02/16/23 8:03 AM) [facility] Work Phone: Glucose [Mass/Vol] 115 mg/dL Invalid Interpretation Code 82 - 115 mg/dL [facility] Work Phone: LABORATORYOrdered By: SYSTEM SYSTEM on 02-16-2023 Basophil, Absolute 0.0 103/mcL Invalid Interpretation Code 0.0 - 0.2 10^3/mcL AO Workflow SS Basophils/100 WBC (Bld) 0.2 % Invalid Interpretation Code 0.0 - 2.5 % AO Workflow SS Calcium [Mass/Vol] 8.7 mg/dL Invalid Interpretation Code 8.4 - 10.2 mg/dL AO ADM SS Chloride [Moles/Vol] 105 mmol/L Invalid Interpretation Code 98 - 107 mmol/L AO ADM SS CO2 [Moles/Vol] 30 mmol/L Invalid Interpretation Code 23 - 31 mmol/L AO ADM SS Creatinine [Mass/Vol] 0.84 mg/dL Invalid Interpretation Code 0.55 - 1.02 mg/dL AO ADM SS Electrolyte Balance 4.0 mEq/L Invalid Interpretation Code 4.0 - 15.0 mEq/L AO ADM SS Eosinophil, Absolute 0.0 103/mcL Invalid Interpretation Code 0.0 - 0.4 10^3/mcL AO Workflow SS Eosinophils/100 WBC (Bld) 0.2 % Invalid Interpretation Code 0.0 - 7.0 % AO Workflow SS Erythrocyte distribution width (RBC) [Ratio] 14.5 % Invalid Interpretation Code 11.5 - 14.5 % AO Workflow SS GFR/1.73 sq M.predicted among blacks MDRD (S/P/Bld) [Vol rate/Area] 82 ml/min/1.73sqm Invalid Interpretation Code AO Chemistry S Comment on above: Interpretive Data: GFR Population mean for , Non- Americans Ages 20-29 = 116 mL/min/1.73 sq.m. Ages 30-39 = 107 mL/min/1.73 sq.m. Ages 40-49 = 99 mL/min/1.73 sq.m. Ages 50-59 = 93 mL/min/1.73 sq.m. Ages 60-69 = 85 mL/min/1.73 sq.m. Ages 70+ = 75 mL/min/1.73 sq.m. Chronic Kidney Disease: Less than 60 mL/min/1.73 square meters End Stage Renal Disease: Less than 15 mL/min/1.73 square meters GFR/1.73 sq M.predicted among non-blacks MDRD (S/P/Bld) [Vol rate/Area] 67 ml/min/1.73sqm Invalid Interpretation Code AO Chemistry S Comment on above: Interpretive Data: GFR Population mean for , Non- Americans Ages 20-29 = 116 mL/min/1.73 sq.m. Ages 30-39 = 107 mL/min/1.73 sq.m. Ages 40-49 = 99 mL/min/1.73 sq.m. Ages 50-59 = 93 mL/min/1.73 sq.m. Ages 60-69 = 85 mL/min/1.73 sq.m. Ages 70+ = 75 mL/min/1.73 sq.m. Chronic Kidney Disease: Less than 60 mL/min/1.73 square meters End Stage Renal Disease: Less than 15 mL/min/1.73 square meters Glucose [Mass/Vol] 139 mg/dL Invalid Interpretation Code 80 - 115 mg/dL AO ADM SS Hematocrit (Bld) [Volume fraction] 31.1 % Invalid Interpretation Code 37.0 - 47.0 % AO Workflow SS Hemoglobin (Bld) [Mass/Vol] 10.6 G/dL Invalid Interpretation Code 12.0 - 16.0 G/dL AO Workflow SS Lymphocyte, Absolute 1.3 103/mcL Invalid Interpretation Code 0.8 - 3.9 10^3/mcL AO Workflow SS Lymphocytes/100 WBC (Bld) 12.9 % Invalid Interpretation Code 10.0 - 50.0 % AO Workflow SS MCH (RBC) [Entitic mass] 27.7 pg Invalid Interpretation Code 27.0 - 31.2 pg AO Workflow SS MCHC 33.9 G/dL Invalid Interpretation Code 33.0 - 37.0 G/dL AO Workflow SS MCV (RBC) [Entitic vol] 81.5 fL Invalid Interpretation Code 80.0 - 94.0 fL AO Workflow SS Monocyte, Absolute 0.9 103/mcL Invalid Interpretation Code 0.2 - 1.0 10^3/mcL AO Workflow SS Monocytes/100 WBC (Bld) 9.1 % Invalid Interpretation Code 1.7 - 13.0 % AO Workflow SS Neutrophil, Absolute 8.1 103/mcL Invalid Interpretation Code 2.9 - 6.2 10^3/mcL AO Workflow SS Neutrophils/100 WBC (Bld) 77.6 % Invalid Interpretation Code 37.0 - 80.0 % AO Workflow SS Platelet mean volume (Bld) [Entitic vol] 8.1 fL Invalid Interpretation Code 7.4 - 10.4 fL AO Workflow SS Platelets (Bld) [#/Vol] 235 103/mcL Invalid Interpretation Code 130 - 400 10^3/mcL AO Workflow SS Potassium [Moles/Vol] 4.2 mmol/L Invalid Interpretation Code 3.5 - 5.1 mmol/L AO ADM SS RBC (Bld) [#/Vol] 3.82 106/mcL Invalid Interpretation Code 4.20 - 5.40 10^6/mcL AO Workflow SS Sodium [Moles/Vol] 139 mmol/L Invalid Interpretation Code 136 - 145 mmol/L AO ADM SS Urea nitrogen [Mass/Vol] 19 mg/dL Invalid Interpretation Code 7 - 18 mg/dL AO ADM SS Urea nitrogen/Creatinine [Mass ratio] 23 ratio Invalid Interpretation Code 7 - 27 ratio AO ADM SS WBC (Bld) [#/Vol] 10.4 103/mcL Invalid Interpretation Code 4.6 - 10.8 10^3/mcL AO Workflow SS Gel ABOon 02-15-2023 ABO/Rh Interp Negative Invalid Interpretation Code [facility] ([place]) Comment on above: Performed By: #### A BOG, ALB, BMP, ADIFF, ANEU, ANSG, CBC, GFR, A1C #### [id number], [place] [address] Gel ABSon 02-15-2023 Antibody Screen Gel Negative Normal [facility] ([place]) Comment on above: Performed By: #### A BOG, ALB, BMP, ADIFF, ANEU, ANSG, CBC, GFR, A1C #### [id number], [place] [address] LABORATORYOrdered By: Alyssa Elizalde on 02-15-2023 Blood Glucose Testing Reason Routine (02/15/23 9:27 PM) [facility] Work Phone: Glucose [Mass/Vol] 143 mg/dL Invalid Interpretation Code 82 - 115 mg/dL [facility] Work Phone: LABORATORYOrdered By: Josie Aldrich on 02-15-2023 ABO/Rh Interp Negative Invalid Interpretation Code AO BB SS Antibody Screen Gel Negative ABSC (02/15/23 7:17 AM) Invalid Interpretation Code AO BB SS XR KNEE 1 OR 2 VIEWS RIGHTon 02-15-2023 XR KNEE 1 OR 2 VIEWS RIGHT ORIGINAL HISTORY: Arthroplasty COMPARISON: No FINDINGS: There is an arthroplasty in near anatomic alignment. There is no radiographic evidence of loosening or failure of hardware. There is gas in the soft tissues and the joint space. There are skin david. IMPRESSION: Arthroplasty with immediate postoperative changes. Interpreted by: Matthew Peña MD Preliminary Report By: Matthew Peña MD Electronically signed By Matthew Peña MD Dictated Date: 02/15/2023 10:49:25 AM Prelim Date: 02/15/2023 10:50:02 AM Sign Date: 02/15/2023 10:50:02 AM Ordering Provider: ABHI James [facility] ([place]) .Auto Diffon 01-17-2023 Basophil, Absolute 0.1 10 3/mcL Normal 0.0-0.2 [facility] ([place]) Comment on above: Performed By: #### A BOG, ALB, BMP, ADIFF, ANEU, ANSG, CBC, GFR, A1C #### [id number], [place] [address] Basophils/100 WBC (Bld) 0.7 % Normal 0.0-2.5 A [facility] ([place]) Comment on above: Performed By: #### A BOG, ALB, BMP, ADIFF, ANEU, ANSG, CBC, GFR, A1C #### [address] [address] Eosinophil, Absolute 0.7 10 3/mcL High 0.0-0.4 [facility] ([place]) Comment on above: Performed By: #### A BOG, ALB, BMP, ADIFF, ANEU, ANSG, CBC, GFR, A1C #### [address] [address] Eosinophils/100 WBC (Bld) 9.6 % High 0.0-7.0 [facility] ([place]) Comment on above: Performed By: #### A BOG, ALB, BMP, ADIFF, ANEU, ANSG, CBC, GFR, A1C #### [address] [address] Lymphocyte, Absolute 2.1 10 3/mcL Normal 0.8-3.9 [facility] ([place]) Comment on above: Performed By: #### A BOG, ALB, BMP, ADIFF, ANEU, ANSG, CBC, GFR, A1C #### [address] [address] Lymphocytes/100 WBC (Bld) 29.9 % Normal 10.0-50.0 [facility] ([place]) Comment on above: Performed By: #### A BOG, ALB, BMP, ADIFF, ANEU, ANSG, CBC, GFR, A1C #### [address] [address] Monocyte, Absolute 0.5 10 3/mcL Normal 0.2-1.0 [facility] ([place]) Comment on above: Performed By: #### A BOG, ALB, BMP, ADIFF, ANEU, ANSG, CBC, GFR, A1C #### [address] [address] Monocytes/100 WBC (Bld) 7.8 % Normal 1.7-13.0 [facility] ([place]) Comment on above: Performed By: #### A BOG, ALB, BMP, ADIFF, ANEU, ANSG, CBC, GFR, A1C #### [address] [address] Neutrophils/100 WBC (Bld) 52.0 % Normal 37.0-80.0 [facility] ([place]) Comment on above: Performed By: #### A BOG, ALB, BMP, ADIFF, ANEU, ANSG, CBC, GFR, A1C #### [address] [address] .GFRon 01-17-2023 GFR 99 ml/min/1.73sqm Normal [facility] ([place]) Comment on above: Result Comment: GFR Population mean for , Non- Americans Ages 20-29 = 116 mL/min/1.73 sq.m. Ages 30-39 = 107 mL/min/1.73 sq.m. Ages 40-49 = 99 mL/min/1.73 sq.m. Ages 50-59 = 93 mL/min/1.73 sq.m. Ages 60-69 = 85 mL/min/1.73 sq.m. Ages 70+ = 75 mL/min/1.73 sq.m. Chronic Kidney Disease: Less than 60 mL/min/1.73 square meters End Stage Renal Disease: Less than 15 mL/min/1.73 square meters Performed By: #### A BOG, ALB, BMP, ADIFF, ANEU, ANSG, CBC, GFR, A1C #### [address] [address] GFR Non- 82 ml/min/1.73sqm Normal [facility] ([place]) Comment on above: Result Comment: GFR Population mean for , Non- Americans Ages 20-29 = 116 mL/min/1.73 sq.m. Ages 30-39 = 107 mL/min/1.73 sq.m. Ages 40-49 = 99 mL/min/1.73 sq.m. Ages 50-59 = 93 mL/min/1.73 sq.m. Ages 60-69 = 85 mL/min/1.73 sq.m. Ages 70+ = 75 mL/min/1.73 sq.m. Chronic Kidney Disease: Less than 60 mL/min/1.73 square meters End Stage Renal Disease: Less than 15 mL/min/1.73 square meters Performed By: #### A BOG, ALB, BMP, ADIFF, ANEU, ANSG, CBC, GFR, A1C #### [address] [address] .NEUABSon 01-17-2023 Neutrophil, Absolute 3.6 10 3/mcL Normal 2.9-6.2 [facility] ([place]) Comment on above: Performed By: #### A BOG, ALB, BMP, ADIFF, ANEU, ANSG, CBC, GFR, A1C #### [address] [address] A1Con 01-17-2023 HbA1c (Bld) [Mass fraction] 6.2 % Normal 4.3-6.4 [facility] ([place]) Comment on above: Performed By: #### A BOG, ALB, BMP, ADIFF, ANEU, ANSG, CBC, GFR, A1C #### [address] [address] ALBon 01-17-2023 Albumin Level 3.8 G/dL Normal 3.4-4.8 [facility] ([place]) Comment on above: Performed By: #### A BOG, ALB, BMP, ADIFF, ANEU, ANSG, CBC, GFR, A1C #### [address] [address] BMPon 01-17-2023 BUN/Creatinine Ratio 15 ratio Normal 7-27 [facility] ([place]) Comment on above: Performed By: #### A BOG, ALB, BMP, ADIFF, ANEU, ANSG, CBC, GFR, A1C #### [address] [address] Calcium [Mass/Vol] 9.7 mg/dL Normal 8.4-10.2 [facility] ([place]) Comment on above: Performed By: #### A BOG, ALB, BMP, ADIFF, ANEU, ANSG, CBC, GFR, A1C #### [address] [address] Chloride [Moles/Vol] 103 mmol/L Normal 98-107 [facility] ([place]) Comment on above: Performed By: #### A BOG, ALB, BMP, ADIFF, ANEU, ANSG, CBC, GFR, A1C #### [address] [address] CO2 [Moles/Vol] 33 mmol/L High 23-31 [facility] ([place]) Comment on above: Performed By: #### A BOG, ALB, BMP, ADIFF, ANEU, ANSG, CBC, GFR, A1C #### [address] [address] Creatinine [Mass/Vol] 0.71 mg/dL Normal 0.55-1.02 [facility] ([place]) Comment on above: Performed By: #### A BOG, ALB, BMP, ADIFF, ANEU, ANSG, CBC, GFR, A1C #### [address] [address] Electrolyte Balance 3.0 mEq/L Low 4.0-15.0 [facility] ([place]) Comment on above: Performed By: #### A BOG, ALB, BMP, ADIFF, ANEU, ANSG, CBC, GFR, A1C #### [address] [address] Glucose [Mass/Vol] 107 mg/dL Normal 80-115 [facility] ([place]) Comment on above: Performed By: #### A BOG, ALB, BMP, ADIFF, ANEU, ANSG, CBC, GFR, A1C #### [address] [address] Potassium [Moles/Vol] 4.6 mmol/L Normal 3.5-5.1 [facility] ([place]) Comment on above: Performed By: #### A BOG, ALB, BMP, ADIFF, ANEU, ANSG, CBC, GFR, A1C #### [address] [address] Sodium [Moles/Vol] 139 mmol/L Normal 136-145 [facility] ([place]) Comment on above: Performed By: #### A BOG, ALB, BMP, ADIFF, ANEU, ANSG, CBC, GFR, A1C #### [address] [address] Urea nitrogen [Mass/Vol] 11 mg/dL Normal 7-18 [facility] ([place]) Comment on above: Performed By: #### A BOG, ALB, BMP, ADIFF, ANEU, ANSG, CBC, GFR, A1C #### [address] [address] CBCon 01-17-2023 Erythrocyte distribution width (RBC) [Ratio] 14.6 % High 11.5-14.5 [facility] ([place]) Comment on above: Order Comment: Pre-A dmission Testing Performed By: #### A BOG, ALB, BMP, ADIFF, ANEU, ANSG, CBC, GFR, A1C #### [address] [address] Hematocrit (Bld) [Volume fraction] 38.9 % Normal 37.0-47.0 [facility] ([place]) Comment on above: Order Comment: Pre-A dmission Testing Performed By: #### A BOG, ALB, BMP, ADIFF, ANEU, ANSG, CBC, GFR, A1C #### [address] [address] Hgb 13.0 G/dL Normal 12.0-16.0 [facility] ([place]) Comment on above: Order Comment: Pre-A dmission Testing Performed By: #### A BOG, ALB, BMP, ADIFF, ANEU, ANSG, CBC, GFR, A1C #### [address] [address] MCH (RBC) [Entitic mass] 27.4 pg Normal 27.0-31.2 [facility] ([place]) Comment on above: Order Comment: Pre-A dmission Testing Performed By: #### A BOG, ALB, BMP, ADIFF, ANEU, ANSG, CBC, GFR, A1C #### [address] [address] MCHC 33.5 G/dL Normal 33.0-37.0 [facility] ([place]) Comment on above: Order Comment: Pre-A dmission Testing Performed By: #### A BOG, ALB, BMP, ADIFF, ANEU, ANSG, CBC, GFR, A1C #### [address] [address] MCV (RBC) [Entitic vol] 82.0 fL Normal 80.0-94.0 A [facility] ([place]) Comment on above: Order Comment: Pre-A dmission Testing Performed By: #### A BOG, ALB, BMP, ADIFF, ANEU, ANSG, CBC, GFR, A1C #### [address] [address] Platelet 265 10 3/mcL Normal 130-400 [facility] ([place]) Comment on above: Order Comment: Pre-A dmission Testing Performed By: #### A BOG, ALB, BMP, ADIFF, ANEU, ANSG, CBC, GFR, A1C #### [address] [address] Platelet mean volume (Bld) [Entitic vol] 8.5 fL Normal 7.4-10.4 [facility] ([place]) Comment on above: Order Comment: Pre-A dmission Testing Performed By: #### A BOG, ALB, BMP, ADIFF, ANEU, ANSG, CBC, GFR, A1C #### [address] [address] RBC 4.75 10 6/mcL Normal 4.20-5.40 [facility] ([place]) Comment on above: Order Comment: Pre-A dmission Testing Performed By: #### A BOG, ALB, BMP, ADIFF, ANEU, ANSG, CBC, GFR, A1C #### [address] [address] WBC 6.9 10 3/mcL Normal 4.6-10.8 [facility] ([place]) Comment on above: Order Comment: Pre-A dmission Testing Performed By: #### A BOG, ALB, BMP, ADIFF, ANEU, ANSG, CBC, GFR, A1C #### [address] [address] [address] KNEE W/O CONTRAST RIGHTon 01-17-2023 CT KNEE W/O CONTRAST RIGHT ORIGINAL EXAMINATION: CT OF THE RIGHT KNEE WITHOUT CONTRAST 01/17/2023 12:37 pm TECHNIQUE: CT of the right knee was performed without the administration of intravenous contrast. Multiplanar reformatted images are provided for review. Automated exposure control, iterative reconstruction, and/or weight based adjustment of the mA/kV was utilized to reduce the radiation dose to as low as reasonably achievable. COMPARISON: None. HISTORY ORDERING SYSTEM PROVIDED HISTORY: Reason for Exam: Unilateral primary osteoarthritis, right knee. FINDINGS: No acute fracture or dislocation. Normal osseous mineralization. No visible aggressive osseous lesions. There is severe medial femorotibial compartment joint space narrowing with subchondral sclerosis and marginal osteophytes. Medial meniscal body extrusion. There is [id number] lateral femorotibial compartment joint space narrowing with marginal osteophytes and minimal vacuum joint phenomena. There is mild to moderate patellofemoral compartment joint space narrowing with small marginal osteophytes and subchondral sclerosis of the lateral patellar facet.. A trace volume knee joint effusion is shown. Punctate intracapsular body of the suprapatellar recess. No significant volume of fluid is evident of a popliteal cyst. Nonspecific subcutaneous stranding of the prepatellar region is noted. Small soft tissue calcification in this region also. Tendons and ligaments are suboptimally evaluated on this examination. No severe muscle atrophy. Mild gluteus minimus atrophy. Provided images of the hip and hemipelvis exhibit no acute osseous abnormalities or aggressive osseous lesions. Mild arthrosis of the pubic symphysis. The included intrapelvic contents exhibit no acute abnormalities. An enlarged right inguinal lymph node measures up to 1.8 cm short axis. Provided images of the ankle exhibit no acute osseous abnormalities or aggressive osseous lesions. Incidental type 1 os naviculare. Calcaneal enthesopathy. Mild dorsal osteophytosis of the midfoot. IMPRESSION: 1. No acute osseous abnormalities or aggressive osseous lesions. 2. 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 Trace volume effusion. Punctate intracapsular body of the suprapatellar recess. Interpreted by: Mateo Palmer DO Preliminary Report By: Mateo Palmer DO Electronically signed By Mateo Palmer DO Dictated Date: 01/17/2023 12:57:42 PM Prelim Date: 01/17/2023 1:12:06 PM Sign Date: 01/17/2023 1:12:06 PM Ordering Provider: ABHI AMIN [facility] ([place]) Gel ABOon 01-17-2023 ABO/Rh Interp Negative Invalid Interpretation Code [facility] ([place]) Comment on above: Order Comment: SURG ELIAN 8/15 -AC Performed By: #### A BOG, ALB, BMP, ADIFF, ANEU, ANSG, CBC, GFR, A1C #### [facility] [address], [place] [address] Gel ABSon 01-17-2023 Antibody Screen Gel Negative Normal [facility] ([place]) Comment on above: Order Comment: SURG ELIAN 8/15 -AC Performed By: #### A BOG, ALB, BMP, ADIFF, ANEU, ANSG, CBC, GFR, A1C #### [id number] [place], [place] [address] LABORATORYOrdered By: Carie Mejía on 01-17-2023 ABO/Rh Interp Negative Invalid Interpretation Code AO BB SS Antibody Screen Gel Negative ABSC (01/17/23 11:18 AM) Invalid Interpretation Code AO BB SS LABORATORYOrdered By: SYSTEM SYSTEM on 01-17-2023 Albumin BCP dye [Mass/Vol] 3.8 G/dL Invalid Interpretation Code 3.4 - 4.8 G/dL AO ADM SS Basophil, Absolute 0.1 103/mcL Invalid Interpretation Code 0.0 - 0.2 10^3/mcL AO Workflow SS Basophils/100 WBC (Bld) 0.7 % Invalid Interpretation Code 0.0 - 2.5 % AO Workflow SS Calcium [Mass/Vol] 9.7 mg/dL Invalid Interpretation Code 8.4 - 10.2 mg/dL AO ADM SS Chloride [Moles/Vol] 103 mmol/L Invalid Interpretation Code 98 - 107 mmol/L AO ADM SS CO2 [Moles/Vol] 33 mmol/L Invalid Interpretation Code 23 - 31 mmol/L AO ADM SS Creatinine [Mass/Vol] 0.71 mg/dL Invalid Interpretation Code 0.55 - 1.02 mg/dL AO ADM SS Electrolyte Balance 3.0 mEq/L Invalid Interpretation Code 4.0 - 15.0 mEq/L AO ADM SS Eosinophil, Absolute 0.7 103/mcL Invalid Interpretation Code 0.0 - 0.4 10^3/mcL AO Workflow SS Eosinophils/100 WBC (Bld) 9.6 % Invalid Interpretation Code 0.0 - 7.0 % AO Workflow SS Erythrocyte distribution width (RBC) [Ratio] 14.6 % Invalid Interpretation Code 11.5 - 14.5 % AO Workflow SS GFR/1.73 sq M.predicted among blacks MDRD (S/P/Bld) [Vol rate/Area] 99 ml/min/1.73sqm Invalid Interpretation Code AO Chemistry S GFR/1.73 sq M.predicted among non-blacks MDRD (S/P/Bld) [Vol rate/Area] 82 ml/min/1.73sqm Invalid Interpretation Code AO Chemistry S Glucose [Mass/Vol] 107 mg/dL Invalid Interpretation Code 80 - 115 mg/dL AO ADM SS HbA1c (Bld) [Mass fraction] 6.2 % Invalid Interpretation Code 4.3 - 6.4 % AO ADM SS Hematocrit (Bld) [Volume fraction] 38.9 % Invalid Interpretation Code 37.0 - 47.0 % AO Workflow SS Hemoglobin (Bld) [Mass/Vol] 13.0 G/dL Invalid Interpretation Code 12.0 - 16.0 G/dL AO Workflow SS Lymphocyte, Absolute 2.1 103/mcL Invalid Interpretation Code 0.8 - 3.9 10^3/mcL AO Workflow SS Lymphocytes/100 WBC (Bld) 29.9 % Invalid Interpretation Code 10.0 - 50.0 % AO Workflow SS MCH (RBC) [Entitic mass] 27.4 pg Invalid Interpretation Code 27.0 - 31.2 pg AO Workflow SS MCHC 33.5 G/dL Invalid Interpretation Code 33.0 - 37.0 G/dL AO Workflow SS MCV (RBC) [Entitic vol] 82.0 fL Invalid Interpretation Code 80.0 - 94.0 fL AO Workflow SS Monocyte, Absolute 0.5 103/mcL Invalid Interpretation Code 0.2 - 1.0 10^3/mcL AO Workflow SS Monocytes/100 WBC (Bld) 7.8 % Invalid Interpretation Code 1.7 - 13.0 % AO Workflow SS Neutrophil, Absolute 3.6 103/mcL Invalid Interpretation Code 2.9 - 6.2 10^3/mcL AO Workflow SS Neutrophils/100 WBC (Bld) 52.0 % Invalid Interpretation Code 37.0 - 80.0 % AO Workflow SS Platelet mean volume (Bld) [Entitic vol] 8.5 fL Invalid Interpretation Code 7.4 - 10.4 fL AO Workflow SS Platelets (Bld) [#/Vol] 265 103/mcL Invalid Interpretation Code 130 - 400 10^3/mcL AO Workflow SS Potassium [Moles/Vol] 4.6 mmol/L Invalid Interpretation Code 3.5 - 5.1 mmol/L AO ADM SS RBC (Bld) [#/Vol] 4.75 106/mcL Invalid Interpretation Code 4.20 - 5.40 10^6/mcL AO Workflow SS Sodium [Moles/Vol] 139 mmol/L Invalid Interpretation Code 136 - 145 mmol/L AO ADM SS Urea nitrogen [Mass/Vol] 11 mg/dL Invalid Interpretation Code 7 - 18 mg/dL AO ADM SS Urea nitrogen/Creatinine [Mass ratio] 15 ratio Invalid Interpretation Code 7 - 27 ratio AO ADM SS WBC (Bld) [#/Vol] 6.9 103/mcL Invalid Interpretation Code 4.6 - 10.8 10^3/mcL AO Workflow SS LABORATORYOrdered By: Carie Chambers on 01-17-2023 MRSA DNA HANNA+probe Ql (Unsp spec) Not Detected 1 (01/17/23 11:18 AM) Invalid Interpretation Code Not Detected Auto Viro/Sero SS Comment on above: Result Comment: Note s [id number] MRSA PCR Int MRSA DNA not detecte d by Real-Time Polymerase Chain Reaction (PCR). A negative result may be due to intermittent colonization. Colonization may vary depending on patient treatment, patient status, or exposure to high-risk environments.As with all PCR based in vitro diagnostic tests, extremely low levels of target below the limit of detection of the assay may be detected, but results may not be reproducible. Invalid Interpretation Code Auto Viro/Sero SS MRSAPCRon 01-17-2023 MRSA (PCR) Not detected Normal Not Detected [facility] ([place]) Comment on above: Result Comment: Note s [id number] Performed By: #### A BOG, ALB, BMP, ADIFF, ANEU, ANSG, CBC, GFR, A1C #### [id number] [place], [place] [address] MRSA PCR Int Normal [facility] ([place]) Comment on above: Result Comment: MRSA DNA not detected by Real-Time Polymerase Chain Reaction (PCR). A negative result may be due to intermittent colonization. Colonization may vary depending on patient treatment, patient status, or exposure to high-risk environments. As with all PCR based in vitro diagnostic tests, extremely low levels of target below the limit of detection of the assay may be detected, but results may not be reproducible. See Below Performed By: #### A BOG, ALB, BMP, ADIFF, ANEU, ANSG, CBC, GFR, A1C #### [id number] [place], [place] [address] Absolute lymphocyte countOrd ered By: Dr. Romero on 11-22-2022 Lymphocytes Auto (Unsp spec) [#/Vol] 2.07 10*3/uL 0.83-4.51 [facility] Basophil percentageOrdered B y: Dr. Romero on 11-22-2022 Basophils/100 WBC (Bld) 1.2 % 0-1 [facility] Bilirubin [Mass/Vol] 0.50 mg/dL 0.20-1.[address] [facility] Comment on above: For patients on eltr ombopag therapy, use of Dimension [place] TBIL is not recommended. Chloride [Moles/Vol] 105 mmol/L 98-[address] [facility] Cholesterol [Mass/Vol] 132 mg/dL <200 [facility] Comment on above: <200 mg/dL Desirable 200-240 mg/dL Borderline >240 mg/dL High Risk Eosinophils/100 WBC (Bld) 2.6 % 0-5 [facility] Glucose [Mass/Vol] 122 mg/dL 74-106 [facility] Comment on above: Fasting Glucose resu lt from 100 to 125 mg/dL suggests IMPAIRED HOMEOSTASIS per A.D.A. criteria. Neutrophils (Bld) [#/Vol] 2.9 10*3/uL 2.0-7.7 [facility] Neutrophils/100 WBC (Bld) 50.8 % 47-70 [facility] Potassium [Moles/Vol] 4.2 mmol/L 3.5-5.1 [facility] Protein [Mass/Vol] 7.6 g/dL 6.4-8.2 [facility] Sodium [Moles/Vol] 140 mmol/L 136-145 [facility] Triglyceride [Mass/Vol] 104 mg/dL <199 [facility] Comment on above: The drugs N-Acetylcy steine and Metamizole may falsely depress this assay.Serum Triglycerides Reference Interval Normal <150 mg/dL Borderline high 150 - 199 mg/dL High 200 - 499 mg/dL Very High > or = 500 mg/dL WBC (Bld) [#/Vol] 5.7 10*3/uL 4.4-11.0 [facility] Blood erythrocytes count (nu mber/volume)Ordered By: Dr. Romero on 11-22-2022 RBC (Bld) [#/Vol] 4.61 10*6/uL 4.2-5.4 [facility] Blood hemoglobin measurement (mass/volume)Ordered By: Dr. Romero on 11-22-2022 Hemoglobin (Bld) [Mass/Vol] 12.5 g/dL 12.0-15.0 [facility] Blood lymphocytes/100 leukoc ytesOrdered By: Dr. Romero on 11-22-2022 Lymphocytes/100 WBC (Bld) 36.4 % 19-41 [facility] [place] Blood monocytes/100 leukocyt esOrdered By: Dr. Romero on 11-22-2022 Monocytes/100 WBC (Bld) 8.6 % 0-10 [facility] Blood platelet mean volumeOr dered By: Dr. Romero on 11-22-2022 Platelet mean volume (Bld) [Entitic vol] 10.1 fL 6.2-12.0 [facility] Determination of erythrocyte mean corpuscular volume (MCV)Ordered By: Dr. Romero on 11-22-2022 MCV (RBC) [Entitic vol] 85.9 fL 81-99 [facility] Hematocrit Auto (Bld) [Volum e fraction]Ordered By: Dr. Romero on 11-22-2022 Hematocrit (Bld) [Volume fraction] 39.6 % 37-47 [facility] Laboratory - Chemistry and C hemistry - challengeOrdered By: Dr. Romero on 11-22-2022 ALP [Catalytic activity/Vol] 79 U/L 45-117 [facility] ALT [Catalytic activity/Vol] 20 U/L 13-56 [facility] CO2 [Moles/Vol] 30.0 mmol/L 21.0-32.0 [facility] Globulin (S) [Mass/Vol] 4.3 g/dL 2.2-4.2 [facility] Magnesium [Mass/Vol] 1.9 mg/dL 1.6-2.[address] [facility] Urea nitrogen/Creatinine [Mass ratio] 18.1 mg/mg 10-20 [facility] Laboratory - Hematology and Cell countsOrdered By: Dr. Romero on 11-22-2022 Erythrocyte distribution width (RBC) [Entitic vol] 41.6 fL 35.1-43.9 [facility] Erythrocyte distribution width (RBC) [Ratio] 13.3 % 11.6-14.6 [facility] Immature granulocytes/100 WBC (Bld) 0.400 % 0.0-0.9 [facility] Comment on above: IG% - Immature Granu locytes (promyelocytes, myelocytes and metamyelocytes) > 1% indicates that a LEFT SHIFT is Present. MCH (RBC) [Entitic mass] 27.1 pg 27.0-32.0 [facility] Nucleated RBC/100 WBC (Bld) [Ratio] 0 % 0-5 [facility] MCHC Auto (RBC) [Mass/Vol]Or dered By: Dr. Romero on 11-22-2022 MCHC (RBC) [Mass/Vol] 31.6 g/dL 32-36 [facility] No Panel InformationOrdered By: Dr. Romero on 11-22-2022 Urine Microalbumin/Creatinine Ratio 7.5 mg/g CRE <30 [facility] Estimated GFR (MDRD) Amer 114 mL/min >60 [facility] Comment on above: GFR Calc Estimated GFR (MDRD) Non-Af Amer 94 mL/min >60 [facility] Comment on above: Non- GFR Calc Thyroid Stimulating Hormone (TSH) 2.48 uIU/mL 0.358-3.74 [facility] Vitamin D 25-Hydroxy 61.3 ng/mL [facility] Comment on above: Vitamin D 25(OH) Sta tus Range Deficiency <20 ng/mL (50nmol/L) Insufficiency 20 - 30 ng/mL (50 - 75 nmol/L) Sufficiency 30 - 100 ng/mL (75 - 250 nmol/L) Toxicity >100 ng/mL (>250 nmol/L) Platelets bldOrdered By: Dr. Romero on 11-22-2022 Platelets (Bld) [#/Vol] 294 10*3/uL 150-450 [facility] [place] Serum or plasma albumin jennifer urement (mass/volume)Ordered By: Dr. Romero on 11-22-2022 Albumin [Mass/Vol] 3.3 g/dL 3.2-5.0 [facility] Serum or plasma albumin/glob ulin mass ratioOrdered By: Dr. Romero on 11-22-2022 Albumin/Globulin [Mass ratio] 0.8 {ratio} 0.9-2.4 [facility] [place] Serum or plasma calcium jennifer urement (mass/volume)Ordered By: Dr. Romero on 11-22-2022 Calcium [Mass/Vol] 9.4 mg/dL 8.5-10.1 [facility] Serum or plasma cholesterol in HDL measurement (mass/volume)Ordered By: Dr. Romero on 11-22-2022 Cholesterol in HDL [Mass/Vol] 63 mg/dL >40 [facility] Comment on above: The drugs N-Acetylcy steine and Metamizole may falsely depress this assay. Reference Range HDL <40 mg/dL Low HDL Cholesterol HDL >or= 60 mg/dL High HDL Cholesterol Serum or plasma cholesterol in VLDL measurement (mass/volume)Ordered By: Dr. Romero on 11-22-2022 Cholesterol in VLDL [Mass/Vol] 21 mg/dL 5-40 [facility] [place] Serum or plasma creatinine m easurement (mass/volume)Ordered By: Dr. Romero on 11-22-2022 Creatinine [Mass/Vol] 0.66 mg/dL 0.55-1.02 [facility] Comment on above: The validity of the calculated GFR & GFRAA in patients over 70 years has not been determined. Clinical correlation is essential. Serum or plasma low density lipoprotein (LDL) cholesterol measurement (mass/volume)Ordered By: Dr. Romero on 11-22-2022 Cholesterol in LDL [Mass/Vol] 48 mg/dL 0-130 [facility] [place] Serum or plasma urea nitroge n measurement (mass/volume)Ordered By: Dr. Romero on 11-22-2022 Urea nitrogen [Mass/Vol] 12 mg/dL 7-18 [facility] Thin prep Papanicolaou smear with manual screeningOrdered By: Dr. Romero on 11-22-2022 Thin prep Papanicolaou smear with manual screening 9.4 mg/L NO RANGE EST. [facility] Thin prep Papanicolaou smear with manual screening 18 U/L 15-37 [facility] Thin prep Papanicolaou smear with manual screening 5 5-15 [facility] Urine creatinine measurement (mass/volume)Ordered By: Dr. Romero on 11-22-2022 Creatinine (U) [Mass/Vol] 125.00 mg/dL NO RANGE EST. [facility] Whole blood hemoglobin A1c/t otal hemoglobin ratio (mass fraction)Ordered By: Dr. Romero on 11-22-2022 HbA1c (Bld) [Mass fraction] 6.0 % 3.8-5.6 [facility] Comment on above: Normal < 5.7 % Predi abetic 5.7 - 6.4 % Diabetic >or= 6.5 % Please note range changes. LABORATORYOrdered By: Sonal Redd on 09-08-2022 Blood Glucose Testing Reason Routine (09/08/22 10:55 AM) [facility] Work Phone: Glucose [Mass/Vol] 111 mg/dL Invalid Interpretation Code 82 - 115 mg/dL [facility] Work Phone: Blood Glucose Testing Reason Routine (09/08/22 7:31 AM) [facility] Work Phone: Glucose [Mass/Vol] 124 mg/dL Invalid Interpretation Code 82 - 115 mg/dL [facility] Work Phone: LABORATORYOrdered By: SYSTEM SYSTEM on 09-08-2022 Basophils (Bld) [#/Vol] 0.0 103/mcL Invalid Interpretation Code 0.0 - 0.3 10^3/mcL AH Workflow SS Basophils/100 WBC (Bld) 0.5 % Invalid Interpretation Code 0.0 - 2.5 % Workflow SS Calcium [Mass/Vol] 9.3 mg/dL Invalid Interpretation Code 8.7 - 10.4 mg/dL ADM SS Chloride [Moles/Vol] 107 mmol/L Invalid Interpretation Code 98 - 110 mEq/L ADM SS CO2 [Moles/Vol] 30 mmol/L Invalid Interpretation Code 22 - 32 mEq/L ADM SS Creatinine [Mass/Vol] 0.69 mg/dL Invalid Interpretation Code 0.50 - 1.20 mg/dL ADM SS Electrolyte Balance 5.0 mEq/L Invalid Interpretation Code 4.0 - 15.0 mEq/L ADM SS Eosinophils (Bld) [#/Vol] 0.2 103/mcL Invalid Interpretation Code 0.0 - 0.7 10^3/mcL Workflow SS Eosinophils/100 WBC (Bld) 2.5 % Invalid Interpretation Code 0.0 - 6.0 % Workflow SS Erythrocyte distribution width (RBC) [Ratio] 15.0 % Invalid Interpretation Code 11.5 - 15.5 % Workflow SS GFR/1.73 sq M.predicted among blacks MDRD (S/P/Bld) [Vol rate/Area] ml/min/1.73sqm Invalid Interpretation Code ADM SS GFR/1.73 sq M.predicted among non-blacks MDRD (S/P/Bld) [Vol rate/Area] ml/min/1.73sqm Invalid Interpretation Code ADM SS Glucose [Mass/Vol] 110 mg/dL Invalid Interpretation Code 82 - 115 mg/dL ADM SS Hematocrit (Bld) [Volume fraction] 36.3 % Invalid Interpretation Code 34.0 - 46.0 % Workflow SS Hemoglobin (Bld) [Mass/Vol] 11.9 G/dL Invalid Interpretation Code 12.0 - 16.0 G/dL Workflow SS Lymphocytes (Bld) [#/Vol] 1.6 103/mcL Invalid Interpretation Code 0.9 - 4.3 10^3/mcL Workflow SS Lymphocytes/100 WBC (Bld) 24.8 % Invalid Interpretation Code 20.0 - 40.0 % Workflow SS Magnesium [Mass/Vol] 1.8 mg/dL Invalid Interpretation Code 1.6 - 2.4 mg/dL ADM SS MCH (RBC) [Entitic mass] 26.9 pg Invalid Interpretation Code 27.0 - 33.0 pg Workflow SS MCHC 32.8 G/dL Invalid Interpretation Code 32.0 - 36.0 G/dL Workflow SS MCV (RBC) [Entitic vol] 82.0 fL Invalid Interpretation Code 80.0 - 99.0 fL Workflow SS Monocytes (Bld) [#/Vol] 0.6 103/mcL Invalid Interpretation Code 0.1 - 1.4 10^3/mcL AH Workflow SS Monocytes/100 WBC (Bld) 9.4 % Invalid Interpretation Code 2.0 - 13.0 % AH Workflow SS Neutrophils (Bld) [#/Vol] 3.9 103/mcL Invalid Interpretation Code 2.3 - 8.1 10^3/mcL AH Workflow SS Neutrophils/100 WBC (Bld) 62.8 % Invalid Interpretation Code 50.0 - 75.0 % AH Workflow SS Platelet mean volume (Bld) [Entitic vol] 7.9 fL Invalid Interpretation Code 6.6 - 10.5 fL AH Workflow SS Platelets (Bld) [#/Vol] 253 103/mcL Invalid Interpretation Code 150 - 450 10^3/mcL AH Workflow SS Potassium [Moles/Vol] 4.6 mmol/L Invalid Interpretation Code 3.5 - 5.0 mEq/L ADM SS RBC (Bld) [#/Vol] 4.42 106/mcL Invalid Interpretation Code 4.10 - 5.30 10^6/mcL AH Workflow SS Sodium [Moles/Vol] 142 mmol/L Invalid Interpretation Code 136 - 145 mEq/L ADM SS Urea nitrogen [Mass/Vol] 12.0 mg/dL Invalid Interpretation Code 8.0 - 22.0 mg/dL AH ADM SS Urea nitrogen/Creatinine [Mass ratio] 17.4 ratio Invalid Interpretation Code 10.0 - 22.0 ratio AH ADM SS WBC (Bld) [#/Vol] 6.2 103/mcL Invalid Interpretation Code 4.5 - 10.8 10^3/mcL Workflow SS LABORATORYOrdered By: Missael Kumari on 09-07-2022 Blood Glucose Testing Reason Routine (09/07/22 9:11 PM) [facility] Work Phone: Glucose [Mass/Vol] 101 mg/dL Invalid Interpretation Code 82 - 115 mg/dL [facility] Work Phone: LABORATORYOrdered By: SYSTEM SYSTEM on 09-07-2022 Basophils (Bld) [#/Vol] 0.0 103/mcL Invalid Interpretation Code 0.0 - 0.3 10^3/mcL Workflow SS Basophils/100 WBC (Bld) 0.7 % Invalid Interpretation Code 0.0 - 2.5 % Workflow SS Calcium [Mass/Vol] 9.5 mg/dL Invalid Interpretation Code 8.7 - 10.4 mg/dL ADM SS Chloride [Moles/Vol] 107 mmol/L Invalid Interpretation Code 98 - 110 mEq/L ADM SS CO2 [Moles/Vol] 32 mmol/L Invalid Interpretation Code 22 - 32 mEq/L ADM SS Creatinine [Mass/Vol] 0.68 mg/dL Invalid Interpretation Code 0.50 - 1.20 mg/dL ADM SS Electrolyte Balance 3.0 mEq/L Invalid Interpretation Code 4.0 - 15.0 mEq/L ADM SS Eosinophils (Bld) [#/Vol] 0.2 103/mcL Invalid Interpretation Code 0.0 - 0.7 10^3/mcL Workflow SS Eosinophils/100 WBC (Bld) 3.2 % Invalid Interpretation Code 0.0 - 6.0 % Workflow SS Erythrocyte distribution width (RBC) [Ratio] 15.1 % Invalid Interpretation Code 11.5 - 15.5 % Workflow SS GFR/1.73 sq M.predicted among blacks MDRD (S/P/Bld) [Vol rate/Area] ml/min/1.73sqm Invalid Interpretation Code ADM SS GFR/1.73 sq M.predicted among non-blacks MDRD (S/P/Bld) [Vol rate/Area] ml/min/1.73sqm Invalid Interpretation Code ADM SS Glucose [Mass/Vol] 108 mg/dL Invalid Interpretation Code 82 - 115 mg/dL ADM SS Hematocrit (Bld) [Volume fraction] 34.7 % Invalid Interpretation Code 34.0 - 46.0 % Workflow SS Hemoglobin (Bld) [Mass/Vol] 11.4 G/dL Invalid Interpretation Code 12.0 - 16.0 G/dL Workflow SS Lymphocytes (Bld) [#/Vol] 2.4 103/mcL Invalid Interpretation Code 0.9 - 4.3 10^3/mcL Workflow SS Lymphocytes/100 WBC (Bld) 36.9 % Invalid Interpretation Code 20.0 - 40.0 % Workflow SS Magnesium [Mass/Vol] 1.8 mg/dL Invalid Interpretation Code 1.6 - 2.4 mg/dL ADM SS MCH (RBC) [Entitic mass] 26.9 pg Invalid Interpretation Code 27.0 - 33.0 pg Workflow SS MCHC 33.0 G/dL Invalid Interpretation Code 32.0 - 36.0 G/dL Workflow SS MCV (RBC) [Entitic vol] 81.5 fL Invalid Interpretation Code 80.0 - 99.0 fL AH Workflow SS Monocytes (Bld) [#/Vol] 0.6 103/mcL Invalid Interpretation Code 0.1 - 1.4 10^3/mcL AH Workflow SS Monocytes/100 WBC (Bld) 8.9 % Invalid Interpretation Code 2.0 - 13.0 % AH Workflow SS Neutrophils (Bld) [#/Vol] 3.2 103/mcL Invalid Interpretation Code 2.3 - 8.1 10^3/mcL AH Workflow SS Neutrophils/100 WBC (Bld) 50.3 % Invalid Interpretation Code 50.0 - 75.0 % AH Workflow SS Platelet mean volume (Bld) [Entitic vol] 8.0 fL Invalid Interpretation Code 6.6 - 10.5 fL Workflow SS Platelets (Bld) [#/Vol] 262 103/mcL Invalid Interpretation Code 150 - 450 10^3/mcL AH Workflow SS Potassium [Moles/Vol] 4.7 mmol/L Invalid Interpretation Code 3.5 - 5.0 mEq/L AH ADM SS RBC (Bld) [#/Vol] 4.25 106/mcL Invalid Interpretation Code 4.10 - 5.30 10^6/mcL AH Workflow SS Sodium [Moles/Vol] 142 mmol/L Invalid Interpretation Code 136 - 145 mEq/L AH ADM SS Urea nitrogen [Mass/Vol] 11.0 mg/dL Invalid Interpretation Code 8.0 - 22.0 mg/dL AH ADM SS Urea nitrogen/Creatinine [Mass ratio] 16.2 ratio Invalid Interpretation Code 10.0 - 22.0 ratio AH ADM SS WBC (Bld) [#/Vol] 6.4 103/mcL Invalid Interpretation Code 4.5 - 10.8 10^3/mcL Workflow SS LABORATORYOrdered By: Ruth Almaraz on 09-06-2022 aPTT Coag (PPP) [Time] 57.5 s Invalid Interpretation Code 25.0 - 35.0 seconds AH Auto Coag SS Heparin dose (APTT) Heparin IV (09/06/22 11:36 PM) Invalid Interpretation Code AH Auto Coag SS Barometric Pressure 711 mm[Hg] Invalid Interpretation Code AH Auto Chem SS Base excess Calc (Bld) [Moles/Vol] 3.3 mmol/L Invalid Interpretation Code Auto Chem SS CO2 (Bld) [Partial pressure] 47.2 mm[Hg] Invalid Interpretation Code 32.0 - 46.0 mm Hg AH Auto Chem SS CO2 [Moles/Vol] 30.2 mmol/L Invalid Interpretation Code 22.0 - 30.0 mmol/L AH Auto Chem SS HCO3 (Bld) [Moles/Vol] 28.8 mmol/L Invalid Interpretation Code 21.0 - 29.0 mmol/L AH Auto Chem SS Oxygen (Bld) [Partial pressure] 70.1 mm[Hg] Invalid Interpretation Code 74.0 - 108.0 mm Hg AH Auto Chem SS pH (Bld) 7.403 [pH] Invalid Interpretation Code 7.380 - 7.460 AH Auto Chem SS Bacteria LM.HPF (Urine sed) [#/Area] 2 /[HPF] Invalid Interpretation Code Negative/H PF Auto Urine SS UA Hyal Cast 0-2 /LPF Invalid Interpretation Code Auto Urine SS UA Mucous 1+ /HPF Invalid Interpretation Code Auto Urine SS UA RBC Negative Invalid Interpretation Code 0-2/HPF Auto Urine SS UA Squam Epithelial 0-2 /HPF Invalid Interpretation Code 0-20/HPF Auto Urine SS WBC LM.HPF (Urine sed) [#/Area] 10-20 /HPF Invalid Interpretation Code 0-5/HPF AH Auto Urine SS LABORATORYOrdered By: Heidy García on 09-06-2022 aPTT Coag (PPP) [Time] 34.3 s Invalid Interpretation Code 25.0 - 35.0 seconds Auto Coag SS Heparin dose (APTT) Heparin IV (09/06/22 4:08 PM) Invalid Interpretation Code AH Auto Coag SS LABORATORYOrdered By: Maco Allen on 09-06-2022 aPTT Coag (PPP) [Time] 30.9 s Invalid Interpretation Code 25.0 - 35.0 seconds AH Auto Coag SS Heparin dose (APTT) Unknown (09/06/22 10:18 AM) Invalid Interpretation Code AH Auto Coag SS INR Coag (PPP) [Relative time] 1.1 {INR} Invalid Interpretation Code Auto Coag SS PT Coag (PPP) [Time] 12.9 s Invalid Interpretation Code 9.0 - 14.9 seconds AH Auto Coag SS LABORATORYOrdered By: SYSTEM SYSTEM on 09-06-2022 Albumin BCP dye [Mass/Vol] 3.1 G/dL Invalid Interpretation Code 3.2 - 4.8 G/dL ADM SS Albumin/Globulin [Mass ratio] 1.0 {ratio} Invalid Interpretation Code 0.9 - 1.6 ratio AH ADM SS ALP [Catalytic activity/Vol] 79 U/L Invalid Interpretation Code 38 - 126 U/L ADM SS ALT No additional P-5'-P [Catalytic activity/Vol] 18 U/L Invalid Interpretation Code 10 - 49 U/L ADM SS AST [Catalytic activity/Vol] 15 U/L Invalid Interpretation Code 8 - 34 U/L ADM SS Basophils (Bld) [#/Vol] 0.0 103/mcL Invalid Interpretation Code 0.0 - 0.3 10^3/mcL AH Workflow SS Basophils/100 WBC (Bld) 0.3 % Invalid Interpretation Code 0.0 - 2.5 % Workflow SS Bilirubin [Mass/Vol] 0.30 mg/dL Invalid Interpretation Code 0.20 - 1.20 mg/dL ADM SS Calcium [Mass/Vol] 9.4 mg/dL Invalid Interpretation Code 8.7 - 10.4 mg/dL ADM SS Chloride [Moles/Vol] 107 mmol/L Invalid Interpretation Code 98 - 110 mEq/L ADM SS CO2 [Moles/Vol] 31 mmol/L Invalid Interpretation Code 22 - 32 mEq/L ADM SS Creatinine [Mass/Vol] 0.70 mg/dL Invalid Interpretation Code 0.50 - 1.20 mg/dL ADM SS Electrolyte Balance 6.0 mEq/L Invalid Interpretation Code 4.0 - 15.0 mEq/L ADM SS Eosinophils (Bld) [#/Vol] 0.2 103/mcL Invalid Interpretation Code 0.0 - 0.7 10^3/mcL AH Workflow SS Eosinophils/100 WBC (Bld) 1.9 % Invalid Interpretation Code 0.0 - 6.0 % AH Workflow SS Erythrocyte distribution width (RBC) [Ratio] 14.7 % Invalid Interpretation Code 11.5 - 15.5 % AH Workflow SS GFR/1.73 sq M.predicted among blacks MDRD (S/P/Bld) [Vol rate/Area] ml/min/1.73sqm Invalid Interpretation Code AH ADM SS GFR/1.73 sq M.predicted among non-blacks MDRD (S/P/Bld) [Vol rate/Area] ml/min/1.73sqm Invalid Interpretation Code ADM SS Globulin 3.2 G/dL Invalid Interpretation Code 1.5 - 3.8 G/dL ADM SS Glucose [Mass/Vol] 99 mg/dL Invalid Interpretation Code 82 - 115 mg/dL ADM SS Hematocrit (Bld) [Volume fraction] 35.7 % Invalid Interpretation Code 34.0 - 46.0 % AH Workflow SS Hemoglobin (Bld) [Mass/Vol] 11.7 G/dL Invalid Interpretation Code 12.0 - 16.0 G/dL AH Workflow SS Lymphocytes (Bld) [#/Vol] 2.7 103/mcL Invalid Interpretation Code 0.9 - 4.3 10^3/mcL Workflow SS Lymphocytes/100 WBC (Bld) 30.3 % Invalid Interpretation Code 20.0 - 40.0 % Workflow SS Magnesium [Mass/Vol] 2.2 mg/dL Invalid Interpretation Code 1.6 - 2.4 mg/dL ADM SS MCH (RBC) [Entitic mass] 26.8 pg Invalid Interpretation Code 27.0 - 33.0 pg AH Workflow SS MCHC 32.7 G/dL Invalid Interpretation Code 32.0 - 36.0 G/dL Workflow SS MCV (RBC) [Entitic vol] 81.9 fL Invalid Interpretation Code 80.0 - 99.0 fL Workflow SS Monocytes (Bld) [#/Vol] 0.8 103/mcL Invalid Interpretation Code 0.1 - 1.4 10^3/mcL Workflow SS Monocytes/100 WBC (Bld) 8.9 % Invalid Interpretation Code 2.0 - 13.0 % Workflow SS Neutrophils (Bld) [#/Vol] 5.2 103/mcL Invalid Interpretation Code 2.3 - 8.1 10^3/mcL Workflow SS Neutrophils/100 WBC (Bld) 58.6 % Invalid Interpretation Code 50.0 - 75.0 % Workflow SS Platelet mean volume (Bld) [Entitic vol] 8.2 fL Invalid Interpretation Code 6.6 - 10.5 fL Workflow SS Platelets (Bld) [#/Vol] 265 103/mcL Invalid Interpretation Code 150 - 450 10^3/mcL AH Workflow SS Potassium [Moles/Vol] 4.3 mmol/L Invalid Interpretation Code 3.5 - 5.0 mEq/L AH ADM SS Protein [Mass/Vol] 6.3 G/dL Invalid Interpretation Code 5.7 - 8.2 G/dL AH ADM SS RBC (Bld) [#/Vol] 4.36 106/mcL Invalid Interpretation Code 4.10 - 5.30 10^6/mcL AH Workflow SS Sodium [Moles/Vol] 144 mmol/L Invalid Interpretation Code 136 - 145 mEq/L AH ADM SS Urea nitrogen [Mass/Vol] 16.0 mg/dL Invalid Interpretation Code 8.0 - 22.0 mg/dL AH ADM SS Urea nitrogen/Creatinine [Mass ratio] 22.9 ratio Invalid Interpretation Code 10.0 - 22.0 ratio AH ADM SS WBC (Bld) [#/Vol] 8.8 103/mcL Invalid Interpretation Code 4.5 - 10.8 10^3/mcL Workflow SS HbA1c (Bld) [Mass fraction] 5.8 % Invalid Interpretation Code 4.0 - 6.0 % Auto Chem SS Phosphate [Mass/Vol] 3.4 mg/dL Invalid Interpretation Code 2.4 - 5.1 mg/dL AH ADM SS Troponin I.cardiac DL <= 0.01 ng/mL [Mass/Vol] 3.46 ng/L Invalid Interpretation Code 0.00 - 34.00 ng/L AH ADM SS TSH Qn 2.841 mIU/mL Invalid Interpretation Code 0.550 - 4.780 mIU/mL AH ADM SS LABORATORYOrdered By: Jose Carlos nevarez on 09-06-2022 Cholesterol [Mass/Vol] 130 mg/dL Invalid Interpretation Code 50 - 199 mg/dL ADM SS Cholesterol in HDL [Mass/Vol] 59 mg/dL Invalid Interpretation Code 40 - 59 mg/dL ADM SS Cholesterol in LDL [Mass/Vol] 53 mg/dL Invalid Interpretation Code 0 - 129 mg/dL AH ADM SS Triglyceride [Mass/Vol] 91 mg/dL Invalid Interpretation Code 3 - 149 mg/dL AH ADM SS LABORATORYOrdered By: Tonya Helms on 09-06-2022 Appearance (U) Clear (09/06/22 2:10 AM) Invalid Interpretation Code Clear AH Auto Urine SS Bilirubin Ql (U) Negative (09/06/22 2:10 AM) Invalid Interpretation Code Neg-Trace AH Auto Urine SS Color (U) Yellow (09/06/22 2:10 AM) Invalid Interpretation Code AH Auto Urine SS Glucose Test strip (U) [Mass/Vol] Negative Invalid Interpretation Code Negativemg /dL AH Auto Urine SS Hemoglobin Auto test strip (U) [Mass/Vol] Negative (09/06/22 2:10 AM) Invalid Interpretation Code Neg-Trace AH Auto Urine SS Ketones Ql (U) Negative Invalid Interpretation Code Neg-Tracem g/dL AH Auto Urine SS UA Leuk Est Small *ABN* (09/06/22 2:10 AM) Invalid Interpretation Code Negative AH Auto Urine SS UA Nitrite Negative (09/06/22 2:10 AM) Invalid Interpretation Code Negative AH Auto Urine SS UA pH 7.0 (09/06/22 2:10 AM) Invalid Interpretation Code 5.0 - 8.0 AH Auto Urine SS UA Protein Negative Invalid Interpretation Code Negativemg /dL Auto Urine SS UA Spec Grav 1.015 (09/06/22 2:10 AM) Invalid Interpretation Code 1.006-1.02 9 Auto Urine SS UA Specimen Type Clean Catch (09/06/22 2:10 AM) Invalid Interpretation Code Auto Urine SS UA Urobilinogen 1.0 E.U./dL Invalid Interpretation Code 0.2-1.0E.U ./dL Auto Urine SS LABORATORYOrdered By: Carie Segura on 09-05-2022 Basophil, Absolute 0.1 103/mcL Invalid Interpretation Code 0.0 - 0.2 10^3/mcL AO Workflow SS Basophils/100 WBC (Bld) 1.1 % Invalid Interpretation Code 0.0 - 2.5 % AO Workflow SS Eosinophil, Absolute 0.3 103/mcL Invalid Interpretation Code 0.0 - 0.4 10^3/mcL AO Workflow SS Eosinophils/100 WBC (Bld) 3.2 % Invalid Interpretation Code 0.0 - 7.0 % AO Workflow SS Erythrocyte distribution width (RBC) [Ratio] 15.1 % Invalid Interpretation Code 11.5 - 14.5 % AO Workflow SS Hematocrit (Bld) [Volume fraction] 40.6 % Invalid Interpretation Code 37.0 - 47.0 % AO Workflow SS Hemoglobin (Bld) [Mass/Vol] 13.6 G/dL Invalid Interpretation Code 12.0 - 16.0 G/dL AO Workflow SS Lymphocyte, Absolute 2.8 103/mcL Invalid Interpretation Code 0.8 - 3.9 10^3/mcL AO Workflow SS Lymphocytes/100 WBC (Bld) 27.9 % Invalid Interpretation Code 10.0 - 50.0 % AO Workflow SS MCH (RBC) [Entitic mass] 27.2 pg Invalid Interpretation Code 27.0 - 31.2 pg AO Workflow SS MCHC 33.5 G/dL Invalid Interpretation Code 33.0 - 37.0 G/dL AO Workflow SS MCV (RBC) [Entitic vol] 81.2 fL Invalid Interpretation Code 80.0 - 94.0 fL AO Workflow SS Monocyte distribution width Auto (Bld) [Entitic vol] 18.10 Invalid Interpretation Code 0.00 - 20.00 AO Workflow SS Comment on above: Result Comment: For ED adult patients suspected of sepsis, MDW<=20.0 does not rule out sepsis or risk of sepsis Monocyte, Absolute 0.9 103/mcL Invalid Interpretation Code 0.2 - 1.0 10^3/mcL AO Workflow SS Monocytes/100 WBC (Bld) 8.6 % Invalid Interpretation Code 1.7 - 13.0 % AO Workflow SS Neutrophil, Absolute 5.9 103/mcL Invalid Interpretation Code 2.9 - 6.2 10^3/mcL AO Workflow SS Neutrophils/100 WBC (Bld) 59.2 % Invalid Interpretation Code 37.0 - 80.0 % AO Workflow SS Platelet mean volume (Bld) [Entitic vol] 8.1 fL Invalid Interpretation Code 7.4 - 10.4 fL AO Workflow SS Platelets (Bld) [#/Vol] 331 103/mcL Invalid Interpretation Code 130 - 400 10^3/mcL AO Workflow SS RBC (Bld) [#/Vol] 5.00 106/mcL Invalid Interpretation Code 4.20 - 5.40 10^6/mcL AO Workflow SS WBC (Bld) [#/Vol] 9.9 103/mcL Invalid Interpretation Code 4.6 - 10.8 10^3/mcL AO Workflow SS LABORATORYOrdered By: SYSTEM SYSTEM on 09-05-2022 Calcium [Mass/Vol] 9.4 mg/dL Invalid Interpretation Code 8.4 - 10.2 mg/dL AO ADM SS Chloride [Moles/Vol] 102 mmol/L Invalid Interpretation Code 98 - 107 mmol/L AO ADM SS CO2 [Moles/Vol] 33 mmol/L Invalid Interpretation Code 23 - 31 mmol/L AO ADM SS Creatinine [Mass/Vol] 0.91 mg/dL Invalid Interpretation Code 0.55 - 1.02 mg/dL AO ADM SS Electrolyte Balance 7.0 mEq/L Invalid Interpretation Code 4.0 - 15.0 mEq/L AO ADM SS GFR 75 ml/min/1.73sqm Invalid Interpretation Code AO Chemistry S GFR Non- 62 ml/min/1.73sqm Inval id Interpretation Code AO Chemistry S Glucose [Mass/Vol] 144 mg/dL Invalid Interpretation Code 80 - 115 mg/dL AO ADM SS Magnesium [Mass/Vol] 1.6 mg/dL Invalid Interpretation Code 1.8 - 2.4 mg/dL AO ADM SS Natriuretic peptide.B prohormone N-Terminal [Mass/Vol] 153 pg/mL Invalid Interpretation Code 0 - 125 pg/mL AO ADM SS Potassium [Moles/Vol] 4.4 mmol/L Invalid Interpretation Code 3.5 - 5.1 mmol/L AO ADM SS Sodium [Moles/Vol] 142 mmol/L Invalid Interpretation Code 136 - 145 mmol/L AO ADM SS Troponin I.cardiac DL <= 0.01 ng/mL [Mass/Vol] 6.0 ng/L Invalid Interpretation Code 0.0 - 51.4 ng/L AO ADM SS Urea nitrogen [Mass/Vol] 15 mg/dL Invalid Interpretation Code 7 - 18 mg/dL AO ADM SS Urea nitrogen/Creatinine [Mass ratio] 16 ratio Invalid Interpretation Code 7 - 27 ratio AO ADM SS Basophil percentageOrdered B y: Dr. Garcia on 08-12-2022 Chloride [Moles/Vol] 104 mmol/L 98-[address] [facility] Glucose [Mass/Vol] 106 mg/dL 74-106 [facility] Comment on above: Fasting Glucose resu lt from 100 to 125 mg/dL suggests IMPAIRED HOMEOSTASIS per A.D.A. criteria. Potassium [Moles/Vol] 4.5 mmol/L 3.5-5.1 [facility] Sodium [Moles/Vol] 140 mmol/L 136-145 [facility] Laboratory - Chemistry and C hemistry - challengeOrdered By: Dr. Garcia on 08-12-2022 CO2 [Moles/Vol] 30.0 mmol/L 21.0-32.0 [facility] Urea nitrogen/Creatinine [Mass ratio] 19.4 mg/mg 10-20 [facility] No Panel InformationOrdered By: Dr. Garcia on 08-12-2022 Estimated GFR (MDRD) Amer 95 mL/min >60 [facility] [place] Comment on above: GFR Calc Estimated GFR (MDRD) Non-Af Amer 79 mL/min >60 [facility] [place] Comment on above: Non- GFR Calc Serum or plasma calcium jennifer urement (mass/volume)Ordered By: Dr. Garcia on 08-12-2022 Calcium [Mass/Vol] 9.8 mg/dL 8.5-10.1 [facility] Serum or plasma creatinine m easurement (mass/volume)Ordered By: Dr. Garcia on 08-12-2022 Creatinine [Mass/Vol] 0.78 mg/dL 0.55-1.02 [facility] Comment on above: The validity of the calculated GFR & GFRAA in patients over 70 years has not been determined. Clinical correlation is essential. Serum or plasma urea nitroge n measurement (mass/volume)Ordered By: Dr. Garcia on 08-12-2022 Urea nitrogen [Mass/Vol] 15 mg/dL 7-18 [facility] [place] Thin prep Papanicolaou smear with manual screeningOrdered By: Dr. Garcia on 08-12-2022 Thin prep Papanicolaou smear with manual screening 6 5-15 [facility] [place] LABORATORYOrdered By: SYSTEM SYSTEM on 08-05-2022 Troponin I.cardiac DL <= 0.01 ng/mL [Mass/Vol] 4.4 ng/L Invalid Interpretation Code 0.0 - 51.4 ng/L AO ADM SS Calcium [Mass/Vol] 9.1 mg/dL Invalid Interpretation Code 8.4 - 10.2 mg/dL AO ADM SS Chloride [Moles/Vol] 99 mmol/L Invalid Interpretation Code 98 - 107 mmol/L AO ADM SS CO2 [Moles/Vol] 31 mmol/L Invalid Interpretation Code 23 - 31 mmol/L AO ADM SS Creatinine [Mass/Vol] 0.77 mg/dL Invalid Interpretation Code 0.55 - 1.02 mg/dL AO ADM SS Electrolyte Balance -1.0 mEq/L Invalid Interpretation Code 4.0 - 15.0 mEq/L AO ADM SS GFR 91 ml/min/1.73sqm Invalid Interpretation Code AO Chemistry S GFR Non- 75 ml/min/1.73sqm Inval id Interpretation Code AO Chemistry S Glucose [Mass/Vol] 145 mg/dL Invalid Interpretation Code 80 - 115 mg/dL AO ADM SS Potassium [Moles/Vol] 4.7 mmol/L Invalid Interpretation Code 3.5 - 5.1 mmol/L AO ADM SS Sodium [Moles/Vol] 129 mmol/L Invalid Interpretation Code 136 - 145 mmol/L AO ADM SS Urea nitrogen [Mass/Vol] 12 mg/dL Invalid Interpretation Code 7 - 18 mg/dL AO ADM SS Urea nitrogen/Creatinine [Mass ratio] 16 ratio Invalid Interpretation Code 7 - 27 ratio AO ADM SS Troponin I.cardiac DL <= 0.01 ng/mL [Mass/Vol] 5.2 ng/L Invalid Interpretation Code 0.0 - 51.4 ng/L AO ADM SS LABORATORYOrdered By: Carie Segura on 08-05-2022 Basophil, Absolute 0.1 103/mcL Invalid Interpretation Code 0.0 - 0.2 10^3/mcL AO Workflow SS Basophils/100 WBC (Bld) 1.1 % Invalid Interpretation Code 0.0 - 2.5 % AO Workflow SS Eosinophil, Absolute 0.2 103/mcL Invalid Interpretation Code 0.0 - 0.4 10^3/mcL AO Workflow SS Eosinophils/100 WBC (Bld) 2.3 % Invalid Interpretation Code 0.0 - 7.0 % AO Workflow SS Erythrocyte distribution width (RBC) [Ratio] 15.0 % Invalid Interpretation Code 11.5 - 14.5 % AO Workflow SS Hematocrit (Bld) [Volume fraction] 39.8 % Invalid Interpretation Code 37.0 - 47.0 % AO Workflow SS Hemoglobin (Bld) [Mass/Vol] 13.3 G/dL Invalid Interpretation Code 12.0 - 16.0 G/dL AO Workflow SS Lymphocyte, Absolute 2.9 103/mcL Invalid Interpretation Code 0.8 - 3.9 10^3/mcL AO Workflow SS Lymphocytes/100 WBC (Bld) 29.3 % Invalid Interpretation Code 10.0 - 50.0 % AO Workflow SS MCH (RBC) [Entitic mass] 26.9 pg Invalid Interpretation Code 27.0 - 31.2 pg AO Workflow SS MCHC 33.6 G/dL Invalid Interpretation Code 33.0 - 37.0 G/dL AO Workflow SS MCV (RBC) [Entitic vol] 80.1 fL Invalid Interpretation Code 80.0 - 94.0 fL AO Workflow SS Monocyte distribution width Auto (Bld) [Entitic vol] 20.11 Invalid Interpretation Code 0.00 - 20.00 AO Workflow SS Comment on above: Result Comment: For adults in ED, MDW>20.0 may be associated with a higher risk of sepsis during the first 12hrs of hospital admission Monocyte, Absolute 0.8 103/mcL Invalid Interpretation Code 0.2 - 1.0 10^3/mcL AO Workflow SS Monocytes/100 WBC (Bld) 8.2 % Invalid Interpretation Code 1.7 - 13.0 % AO Workflow SS Neutrophil, Absolute 5.8 103/mcL Invalid Interpretation Code 2.9 - 6.2 10^3/mcL AO Workflow SS Neutrophils/100 WBC (Bld) 59.1 % Invalid Interpretation Code 37.0 - 80.0 % AO Workflow SS Platelet mean volume (Bld) [Entitic vol] 7.7 fL Invalid Interpretation Code 7.4 - 10.4 fL AO Workflow SS Platelets (Bld) [#/Vol] 335 103/mcL Invalid Interpretation Code 130 - 400 10^3/mcL AO Workflow SS RBC (Bld) [#/Vol] 4.96 106/mcL Invalid Interpretation Code 4.20 - 5.40 10^6/mcL AO Workflow SS WBC (Bld) [#/Vol] 9.7 103/mcL Invalid Interpretation Code 4.6 - 10.8 10^3/mcL AO Workflow SS Absolute lymphocyte countOrd ered By: Dr. Romero on 07-01-2022 Lymphocytes Auto (Unsp spec) [#/Vol] 1.71 10*3/uL 0.83-4.51 [facility] [place] Basophil percentageOrdered B y: Dr. Romero on 07-01-2022 Basophils/100 WBC (Bld) 0.8 % 0-1 [facility] Bilirubin [Mass/Vol] 0.50 mg/dL 0.20-1.[address] [facility] Comment on above: For patients on eltr ombopag therapy, use of Dimension [place] TBIL is not recommended. Chloride [Moles/Vol] 104 mmol/L 98-[address] [facility] Cholesterol [Mass/Vol] 146 mg/dL <200 [facility] Comment on above: <200 mg/dL Desirable 200-240 mg/dL Borderline >240 mg/dL High Risk Eosinophils/100 WBC (Bld) 2.6 % 0-5 [facility] [place] Glucose [Mass/Vol] 98 mg/dL 74-106 [facility] Neutrophils (Bld) [#/Vol] 4.8 10*3/uL 2.0-7.7 [facility] [place] Neutrophils/100 WBC (Bld) 65.4 % 47-70 [facility] [place] Potassium [Moles/Vol] 4.0 mmol/L 3.5-5.1 [facility] Protein [Mass/Vol] 7.0 g/dL 6.4-8.2 [facility] Sodium [Moles/Vol] 140 mmol/L 136-145 [facility] Triglyceride [Mass/Vol] 109 mg/dL <199 [facility] Comment on above: The drugs N-Acetylcy steine and Metamizole may falsely depress this assay.Serum Triglycerides Reference Interval Normal <150 mg/dL Borderline high 150 - 199 mg/dL High 200 - 499 mg/dL Very High > or = 500 mg/dL WBC (Bld) [#/Vol] 7.4 10*3/uL 4.4-11.0 [facility] Blood erythrocytes count (nu mber/volume)Ordered By: Dr. Romero on 07-01-2022 RBC (Bld) [#/Vol] 4.56 10*6/uL 4.2-5.4 [facility] Blood hemoglobin measurement (mass/volume)Ordered By: Dr. Romero on 07-01-2022 Hemoglobin (Bld) [Mass/Vol] 12.3 g/dL 12.0-15.0 [facility] [place] Blood lymphocytes/100 leukoc ytesOrdered By: Dr. Romero on 07-01-2022 Lymphocytes/100 WBC (Bld) 23.2 % 19-41 [facility] [place] Blood monocytes/100 leukocyt esOrdered By: Dr. Romero on 07-01-2022 Monocytes/100 WBC (Bld) 7.7 % 0-10 [facility] Blood platelet mean volumeOr dered By: Dr. Romero on 07-01-2022 Platelet mean volume (Bld) [Entitic vol] 10.6 fL 6.2-12.0 [facility] [place] Determination of erythrocyte mean corpuscular volume (MCV)Ordered By: Dr. Romero on 07-01-2022 MCV (RBC) [Entitic vol] 85.7 fL 81-99 [facility] Hematocrit Auto (Bld) [Volum e fraction]Ordered By: Dr. Romero on 07-01-2022 Hematocrit (Bld) [Volume fraction] 39.1 % 37-47 [facility] [place] Laboratory - Chemistry and C hemistry - challengeOrdered By: Dr. Romero on 07-01-2022 ALP [Catalytic activity/Vol] 86 U/L 45-117 [facility] ALT [Catalytic activity/Vol] 25 U/L 13-56 [facility] CO2 [Moles/Vol] 28.0 mmol/L 21.0-32.0 [facility] Globulin (S) [Mass/Vol] 3.6 g/dL 2.2-4.2 [facility] Magnesium [Mass/Vol] 1.6 mg/dL 1.6-2.[address] [facility] Urea nitrogen/Creatinine [Mass ratio] 15.6 mg/mg 10-20 [facility] [place] Laboratory - Hematology and Cell countsOrdered By: Dr. Romero on 07-01-2022 Erythrocyte distribution width (RBC) [Entitic vol] 43.8 fL 35.1-43.9 [facility] [place] Erythrocyte distribution width (RBC) [Ratio] 14.1 % 11.6-14.6 [facility] Immature granulocytes/100 WBC (Bld) 0.300 % 0.0-0.9 [facility] [place] Comment on above: IG% - Immature Granu locytes (promyelocytes, myelocytes and metamyelocytes) > 1% indicates that a LEFT SHIFT is Present. MCH (RBC) [Entitic mass] 27.0 pg 27.0-32.0 [facility] Nucleated RBC/100 WBC (Bld) [Ratio] 0 % 0-5 [facility] [place] MCHC Auto (RBC) [Mass/Vol]Or dered By: Dr. Romero on 07-01-2022 MCHC (RBC) [Mass/Vol] 31.5 g/dL 32-36 [facility] No Panel InformationOrdered By: Dr. Romero on 07-01-2022 Estimated GFR (MDRD) Amer 119 mL/min >60 [facility] [place] Comment on above: GFR Calc Estimated GFR (MDRD) Non-Af Amer 98 mL/min >60 [facility] [place] Comment on above: Non- GFR Calc Thyroid Stimulating Hormone (TSH) 2.69 uIU/mL 0.358-3.74 [facility] [place] Platelets bldOrdered By: Dr. Romero on 07-01-2022 Platelets (Bld) [#/Vol] 304 10*3/uL 150-450 [facility] [place] Serum or plasma albumin jennifer urement (mass/volume)Ordered By: Dr. Romero on 07-01-2022 Albumin [Mass/Vol] 3.4 g/dL 3.2-5.0 [facility] Serum or plasma albumin/glob ulin mass ratioOrdered By: Dr. Romero on 07-01-2022 Albumin/Globulin [Mass ratio] 0.9 {ratio} 0.9-2.4 [facility] [place] Serum or plasma calcium jennifer urement (mass/volume)Ordered By: Dr. Romero on 07-01-2022 Calcium [Mass/Vol] 9.1 mg/dL 8.5-10.1 [facility] Serum or plasma cholesterol in HDL measurement (mass/volume)Ordered By: Dr. Romero on 07-01-2022 Cholesterol in HDL [Mass/Vol] 66 mg/dL >40 [facility] [place] Comment on above: The drugs N-Acetylcy steine and Metamizole may falsely depress this assay. Reference Range HDL <40 mg/dL Low HDL Cholesterol HDL >or= 60 mg/dL High HDL Cholesterol Serum or plasma cholesterol in VLDL measurement (mass/volume)Ordered By: Dr. Romero on 07-01-2022 Cholesterol in VLDL [Mass/Vol] 22 mg/dL 5-40 [facility] [place] Serum or plasma creatinine m easurement (mass/volume)Ordered By: Dr. Romero on 07-01-2022 Creatinine [Mass/Vol] 0.64 mg/dL 0.55-1.02 [facility] Comment on above: The validity of the calculated GFR & GFRAA in patients over 70 years has not been determined. Clinical correlation is essential. Serum or plasma low density lipoprotein (LDL) cholesterol measurement (mass/volume)Ordered By: Dr. Romero on 07-01-2022 Cholesterol in LDL [Mass/Vol] 58 mg/dL 0-130 [facility] [place] Serum or plasma urea nitroge n measurement (mass/volume)Ordered By: Dr. Romero on 07-01-2022 Urea nitrogen [Mass/Vol] 10 mg/dL 7-18 [facility] [place] Thin prep Papanicolaou smear with manual screeningOrdered By: Dr. Romero on 07-01-2022 Thin prep Papanicolaou smear with manual screening 10 U/L 15-37 [facility] [place] Thin prep Papanicolaou smear with manual screening 8 5-15 [facility] Whole blood hemoglobin A1c/t otal hemoglobin ratio (mass fraction)Ordered By: Dr. Romero on 07-01-2022 HbA1c (Bld) [Mass fraction] 5.8 % 3.8-5.6 [facility] [place] Comment on above: Normal < 5.7 % Predi abetic 5.7 - 6.4 % Diabetic >or= 6.5 % Please note range changes. Absolute lymphocyte counton 04-16-2022 Lymphocytes Auto (Unsp spec) [#/Vol] 2.43 10*3/uL 0.83-4.51 [facility] [place] Work Phone: Basophil percentageon 2021 Basophils/100 WBC (Bld) 0.9 % 0-1 [facility] Work Phone: Chloride [Moles/Vol] 107 mmol/L 98-107 [facility]: Eosinophils/100 WBC (Bld) 1.5 % 0-5 [facility] [place] Work Phone: Glucose [Mass/Vol] 94 mg/dL 74-106 [facility] Work Phone: Neutrophils (Bld) [#/Vol] 4.5 10*3/uL 2.0-7.7 [facility] [place] Work Phone: Neutrophils/100 WBC (Bld) 57.3 % 47-70 [facility] [place] Work Phone: Potassium [Moles/Vol] 4.5 mmol/L 3.5-5.1 [facility] Work [facility]: Comment on above: Moderate Hemolysis, Result may be falsely increased. Sodium [Moles/Vol] 141 mmol/L 136-145 [facility] Work Phone: WBC (Bld) [#/Vol] 7.9 10*3/uL 4.4-11.0 [facility] Work Phone: Blood erythrocytes count (nu mber/volume)on 04-16-2022 RBC (Bld) [#/Vol] 5.05 10*6/uL 4.2-5.4 [facility] Work Phone: Blood hemoglobin measurement (mass/volume)on 04-16-2022 Hemoglobin (Bld) [Mass/Vol] 13.6 g/dL 12.0-15.0 [facility] [place] Work Phone: Blood lymphocytes/100 leukoc yteson 04-16-2022 Lymphocytes/100 WBC (Bld) 30.7 % 19-41 [facility] [place] Work Phone: Blood monocytes/100 leukocyt eson 04-16-2022 Monocytes/100 WBC (Bld) 9.5 % 0-10 [facility] Work Phone: Blood platelet mean volumeon 04-16-2022 Platelet mean volume (Bld) [Entitic vol] 10.5 fL 6.2-12.0 [facility] [place] Work Phone: Determination of erythrocyte mean corpuscular volume (MCV)on 04-16-2022 MCV (RBC) [Entitic vol] 85.5 fL 81-99 [facility] Work Phone: Hematocrit Auto (Bld) [Volum e fraction]on 04-16-2022 Hematocrit (Bld) [Volume fraction] 43.2 % 37-47 [facility] [place] Work Phone: Laboratory - Chemistry and C hemistry - challengeon 04-16-2022 CO2 [Moles/Vol] 28.0 mmol/L 21.0-32.0 [facility] [place] Work Phone: Urea nitrogen/Creatinine [Mass ratio] 10.5 mg/mg 10-20 [facility] [place] Work Phone: Laboratory - Hematology and Cell countson 04-16-2022 Erythrocyte distribution width (RBC) [Entitic vol] 43.1 fL 35.1-43.9 [facility] [place] Work Phone: Erythrocyte distribution width (RBC) [Ratio] 14.0 % 11.6-14.6 [facility] [place] Work Phone: Immature granulocytes/100 WBC (Bld) 0.100 % 0.0-0.9 [facility] [place] Work Phone: Comment on above: IG% - Immature Granu locytes (promyelocytes, myelocytes and metamyelocytes) > 1% indicates that a LEFT SHIFT is Present. MCH (RBC) [Entitic mass] 26.9 pg 27.0-32.0 [facility] [place] Work Phone: Nucleated RBC/100 WBC (Bld) [Ratio] 0 % 0-5 [facility] [place] Work Phone: MCHC Auto (RBC) [Mass/Vol]on 04-16-2022 MCHC (RBC) [Mass/Vol] 31.5 g/dL 32-36 [facility] Work Phone: No Panel Informationon 04-16 Estimated Creatinine Clearance Calc 51.11 ml/min [facility] Work Phone: Estimated GFR (MDRD) Amer 97 mL/min >60 [facility] [place] Work Phone: Comment on above: GFR Calc Estimated GFR (MDRD) Non-Af Amer 80 mL/min >60 [facility] [place] Work Phone: Comment on above: Non- GFR Calc Platelets bldon 04-16-2022 Platelets (Bld) [#/Vol] 303 10*3/uL 150-450 [facility] [place] Work Phone: Serum or plasma calcium jennifer urement (mass/volume)on 04-16-2022 Calcium [Mass/Vol] 9.5 mg/dL 8.5-10.1 [facility] Work Phone: Serum or plasma creatinine m easurement (mass/volume)on 04-16-2022 Creatinine [Mass/Vol] 0.76 mg/dL 0.55-1.02 [facility] Work Phone: Comment on above: The validity of the calculated GFR & GFRAA in patients over 70 years has not been determined. Clinical correlation is essential. Serum or plasma urea nitroge n measurement (mass/volume)on 04-16-2022 Urea nitrogen [Mass/Vol] 8 mg/dL 7-18 [facility] [place] Work Phone: Thin prep Papanicolaou smear with manual screeningon 04-16-2022 Thin prep Papanicolaou smear with manual screening 6 -15 [facility] [place] Work Phone: Absolute lymphocyte counton 03-01-2022 Lymphocytes Auto (Unsp spec) [#/Vol] 1.75 10*3/uL 0.83-4.51 [facility] [place] Work Phone: Basophil percentageon 2021 Basophils/100 WBC (Bld) 1.1 % 0-1 [facility] Work Phone: Bilirubin [Mass/Vol] 0.70 mg/dL 0.20-1.[address] [facility] Work Phone: Comment on above: For patients on eltr ombopag therapy, use of Dimension [place] TBIL is not recommended. Chloride [Moles/Vol] 104 mmol/L 98-[address] [facility] Work Phone: Cholesterol [Mass/Vol] 134 mg/dL <200 [facility] Work Phone: Comment on above: <200 mg/dL Desirable 200-240 mg/dL Borderline >240 mg/dL High Risk Eosinophils/100 WBC (Bld) 2.1 % 0-5 [facility] [place] Work Phone: Glucose [Mass/Vol] 108 mg/dL 74-106 [facility] Work Phone: Comment on above: Fasting Glucose resu lt from 100 to 125 mg/dL suggests IMPAIRED HOMEOSTASIS per A.D.A. criteria. Neutrophils (Bld) [#/Vol] 3.7 10*3/uL 2.0-7.7 [facility] [place] Work Phone: Neutrophils/100 WBC (Bld) 60.5 % 47-70 [facility] [place] Work Phone: Potassium [Moles/Vol] 4.3 mmol/L 3.5-5.1 [facility] Work Phone: Protein [Mass/Vol] 7.3 g/dL 6.4-8.2 [facility] Work Phone: Sodium [Moles/Vol] 140 mmol/L 136-145 [facility] [facility] Work Phone: Triglyceride [Mass/Vol] 81 mg/dL <199 [facility] Work Phone: Comment on above: The drugs N-Acetylcy steine and Metamizole may falsely depress this assay.Serum Triglycerides Reference Interval Normal <150 mg/dL Borderline high 150 - 199 mg/dL High 200 - 499 mg/dL Very High > or = 500 mg/dL WBC (Bld) [#/Vol] 6.1 10*3/uL 4.4-11.0 [facility] Work Phone: Blood erythrocytes count (nu mber/volume)on 03-01-2022 RBC (Bld) [#/Vol] 4.66 10*6/uL 4.2-5.4 [facility] Work Phone: Blood hemoglobin measurement (mass/volume)on 03-01-2022 Hemoglobin (Bld) [Mass/Vol] 13.0 g/dL 12.0-15.0 [facility] [place] Work Phone: Blood lymphocytes/100 leukoc yteson 03-01-2022 Lymphocytes/100 WBC (Bld) 28.6 % 19-41 [facility] Work Phone: Blood monocytes/100 leukocyt eson 03-01-2022 Monocytes/100 WBC (Bld) 7.4 % 0-10 [facility] Work Phone: Blood platelet mean volumeon 03-01-2022 Platelet mean volume (Bld) [Entitic vol] 10.5 fL 6.2-12.0 [facility] Work Phone: Determination of erythrocyte mean corpuscular volume (MCV)on 03-01-2022 MCV (RBC) [Entitic vol] 86.3 fL 81-99 [facility] Work Phone: Hematocrit Auto (Bld) [Volum e fraction]on 03-01-2022 Hematocrit (Bld) [Volume fraction] 40.2 % 37-47 [facility] Work Phone: Laboratory - Chemistry and C hemistry - challengeon 03-01-2022 ALP [Catalytic activity/Vol] 83 U/L 45-117 [facility] [place] Work Phone: ALT [Catalytic activity/Vol] 21 U/L 13-56 [facility] [place] Work Phone: CO2 [Moles/Vol] 32.0 mmol/L 21.0-32.0 [facility] Work Phone: Free T4 [Mass/Vol] 0.87 ng/dL 0.76-1.46 [facility] Work Phone: Globulin (S) [Mass/Vol] 4.0 g/dL 2.2-4.2 [facility] Work Phone: Magnesium [Mass/Vol] 1.9 mg/dL 1.6-2.6 [facility] Work [facility]: Urea nitrogen/Creatinine [Mass ratio] 18.2 mg/mg 10-20 [facility] Work Phone: Laboratory - Hematology and Cell countson 03-01-2022 Erythrocyte distribution width (RBC) [Entitic vol] 43.7 fL 35.1-43.9 [facility] Work Phone: Erythrocyte distribution width (RBC) [Ratio] 13.9 % 11.6-14.6 [facility] Work Phone: Immature granulocytes/100 WBC (Bld) 0.300 % 0.0-0.9 [facility] Work Phone: Comment on above: IG% - Immature Granu locytes (promyelocytes, myelocytes and metamyelocytes) > 1% indicates that a LEFT SHIFT is Present. MCH (RBC) [Entitic mass] 27.9 pg 27.0-32.0 [facility] [place] Work Phone: Nucleated RBC/100 WBC (Bld) [Ratio] 0 % 0-5 [facility] Work Phone: MCHC Auto (RBC) [Mass/Vol]on 03-01-2022 MCHC (RBC) [Mass/Vol] 32.3 g/dL 32-36 [facility] Work Phone: No Panel Informationon 03-01 Estimated GFR (MDRD) Amer 105 mL/min >60 [facility] [place] Work Phone: Comment on above: GFR Calc Estimated GFR (MDRD) Non-Af Amer 87 mL/min >60 [facility] [place] Work Phone: Comment on above: Non- GFR Calc Thyroid Stimulating Hormone (TSH) 2.99 uIU/mL 0.358-3.74 [facility] [place] Work Phone: Platelets bldon 03-01-2022 Platelets (Bld) [#/Vol] 321 10*3/uL 150-450 [facility] [place] Work Phone: Serum or plasma albumin jennifer urement (mass/volume)on 03-01-2022 Albumin [Mass/Vol] 3.3 g/dL 3.2-5.0 [facility] Work Phone: Serum or plasma albumin/glob ulin mass ratioon 03-01-2022 Albumin/Globulin [Mass ratio] 0.8 {ratio} 0.9-2.4 [facility] [place] Work Phone: Serum or plasma calcium jennifer urement (mass/volume)on 03-01-2022 Calcium [Mass/Vol] 9.4 mg/dL 8.5-10.1 [facility] Work Phone: Serum or plasma cholesterol in HDL measurement (mass/volume)on 03-01-2022 Cholesterol in HDL [Mass/Vol] 60 mg/dL >40 [facility] [place] Work Phone: Comment on above: The drugs N-Acetylcy steine and Metamizole may falsely depress this assay. Reference Range HDL <40 mg/dL Low HDL Cholesterol HDL >or= 60 mg/dL High HDL Cholesterol Serum or plasma cholesterol in VLDL measurement (mass/volume)on 03-01-2022 Cholesterol in VLDL [Mass/Vol] 16 mg/dL 5-40 [facility] [place] Work Phone: Serum or plasma creatinine m easurement (mass/volume)on 03-01-2022 Creatinine [Mass/Vol] 0.71 mg/dL 0.55-1.02 [facility] Work Phone: Comment on above: The validity of the calculated GFR & GFRAA in patients over 70 years has not been determined. Clinical correlation is essential. Serum or plasma low density lipoprotein (LDL) cholesterol measurement (mass/volume)on 03-01-2022 Cholesterol in LDL [Mass/Vol] 58 mg/dL 0-130 [facility] [place] Work Phone: Serum or plasma urea nitroge n measurement (mass/volume)on 03-01-2022 Urea nitrogen [Mass/Vol] 13 mg/dL 7-18 [facility] [place] Work Phone: Thin prep Papanicolaou smear with manual screeningon 03-01-2022 Thin prep Papanicolaou smear with manual screening 13 U/L 15-37 [facility] [place] Work Phone: Thin prep Papanicolaou smear with manual screening 4 5-15 [facility] Work Phone: Whole blood hemoglobin A1c/t otal hemoglobin ratio (mass fraction)on 03-01-2022 HbA1c (Bld) [Mass fraction] 6.2 % 3.8-5.6 [facility] [place] Work Phone: Comment on above: Normal < 5.7 % Predi abetic 5.7 - 6.4 % Diabetic >or= 6.5 % Please note range changes. Absolute lymphocyte counton 10-07-2021 Lymphocytes Auto (Unsp spec) [#/Vol] 1.76 10*3/uL 0.83-4.51 [facility] Work Phone: Basophil percentageon 2021 Basophils/100 WBC (Bld) 1.0 % 0-1 [facility] Work Phone: Bilirubin [Mass/Vol] 0.30 mg/dL 0.20-1.[address] [facility] Work Phone: Comment on above: For patients on eltr ombopag therapy, use of Dimension [place] TBIL is not recommended. Chloride [Moles/Vol] 105 mmol/L 98-[address] [facility] Work Phone: Cholesterol [Mass/Vol] 142 mg/dL <200 [facility] Work Phone: Comment on above: <200 mg/dL Desirable 200-240 mg/dL Borderline >240 mg/dL High Risk Eosinophils/100 WBC (Bld) 2.5 % 0-5 [facility] Work Phone: Glucose [Mass/Vol] 123 mg/dL 74-106 [facility] Work Phone: Comment on above: Fasting Glucose resu lt from 100 to 125 mg/dL suggests IMPAIRED HOMEOSTASIS per A.D.A. criteria. Neutrophils (Bld) [#/Vol] 3.7 10*3/uL 2.0-7.7 [facility] [place] Work Phone: Neutrophils/100 WBC (Bld) 59.7 % 47-70 [facility] [place] Work Phone: Potassium [Moles/Vol] 4.2 mmol/L 3.5-5.1 [facility] Work Phone: Protein [Mass/Vol] 7.4 g/dL 6.4-8.2 [facility] Work Phone: [phone] Sodium [Moles/Vol] 137 mmol/L 136-145 [facility] Work Phone: Triglyceride [Mass/Vol] 66 mg/dL [facility] Work Phone: Comment on above: The drugs N-Acetylcy steine and Metamizole may falsely depress this assay.Serum Triglycerides Reference Interval Normal <150 mg/dL Borderline high 150 - 199 mg/dL High 200 - 499 mg/dL Very High > or = 500 mg/dL WBC (Bld) [#/Vol] 6.1 10*3/uL 4.4-11.0 [facility] Work Phone: Blood erythrocytes count (nu mber/volume)on 10-07-2021 RBC (Bld) [#/Vol] 4.82 10*6/uL 4.2-5.4 [facility] Work Phone: Blood hemoglobin measurement (mass/volume)on 10-07-2021 Hemoglobin (Bld) [Mass/Vol] 12.9 g/dL 12.0-15.0 [facility] Work Phone: Blood lymphocytes/100 leukoc yteson 10-07-2021 Lymphocytes/100 WBC (Bld) 28.8 % 19-41 [facility] Work Phone: Blood monocytes/100 leukocyt eson 10-07-2021 Monocytes/100 WBC (Bld) 7.7 % 0-10 [facility] Work Phone: Blood platelet mean volumeon 10-07-2021 Platelet mean volume (Bld) [Entitic vol] 10.4 fL 6.2-12.0 [facility] Work Phone: Determination of erythrocyte mean corpuscular volume (MCV)on 10-07-2021 MCV (RBC) [Entitic vol] 86.9 fL 81-99 [facility] Work Phone: Hematocrit Auto (Bld) [Volum e fraction]on 10-07-2021 Hematocrit (Bld) [Volume fraction] 41.9 % 37-47 [facility] [place] Work Phone: Laboratory - Chemistry and C hemistry - challengeon 10-07-2021 ALP [Catalytic activity/Vol] 77 U/L 45-117 [facility] Work Phone: ALT [Catalytic activity/Vol] 24 U/L 13-56 [facility] Work Phone: CO2 [Moles/Vol] 30.0 mmol/L 21.0-32.0 [facility] Work Phone: Free T4 [Mass/Vol] 0.87 ng/dL 0.76-1.46 [facility] Work Phone: Globulin (S) [Mass/Vol] 4.1 g/dL 2.2-4.2 [facility] Work Phone: Magnesium [Mass/Vol] 1.9 mg/dL 1.6-2.[address] [facility] [address] [facility] Work Phone: Urea nitrogen/Creatinine [Mass ratio] 16.1 mg/mg 10-20 [facility] Work Phone: Laboratory - Hematology and Cell countson 10-07-2021 Erythrocyte distribution width (RBC) [Entitic vol] 43.1 fL 35.1-43.9 [facility] Work Phone: Erythrocyte distribution width (RBC) [Ratio] 13.4 % 11.6-14.6 [facility] Work Phone: Immature granulocytes/100 WBC (Bld) 0.300 % 0.0-0.9 [facility] Work Phone: Comment on above: IG% - Immature Granu locytes (promyelocytes, myelocytes and metamyelocytes) > 1% indicates that a LEFT SHIFT is Present. MCH (RBC) [Entitic mass] 26.8 pg 27.0-32.0 [facility] Work Phone: Nucleated RBC/100 WBC (Bld) [Ratio] 0 % 0-5 [facility] Work Phone: MCHC Auto (RBC) [Mass/Vol]on 10-07-2021 MCHC (RBC) [Mass/Vol] 30.8 g/dL 32-36 [facility] Work Phone: No Panel Informationon 10-07 Estimated GFR (MDRD) Amer 91 mL/min >60 [facility] Work Phone: Comment on above: GFR Calc Estimated GFR (MDRD) Non-Af Amer 76 mL/min >60 [facility] Work Phone: Comment on above: Non- GFR Calc Thyroid Stimulating Hormone (TSH) 3.81 uIU/mL 0.358-3.74 [facility] Work Phone: Urine Microalbumin/Creatinine Ratio 7.0 mg/g CRE <30 [facility] Work Phone: Platelets bldon 10-07-2021 Platelets (Bld) [#/Vol] 299 10*3/uL 150-450 [facility] Work Phone: Serum or plasma albumin jennifer urement (mass/volume)on 10-07-2021 Albumin [Mass/Vol] 3.3 g/dL 3.2-5.0 [facility] Work Phone: Serum or plasma albumin/glob ulin mass ratioon 10-07-2021 Albumin/Globulin [Mass ratio] 0.8 {ratio} 0.9-2.4 [facility] Work Phone: Serum or plasma calcium jennifer urement (mass/volume)on 10-07-2021 Calcium [Mass/Vol] 9.2 mg/dL 8.5-10.1 [facility] Work Phone: Serum or plasma cholesterol in HDL measurement (mass/volume)on 10-07-2021 Cholesterol in HDL [Mass/Vol] 62 mg/dL [facility] Work Phone: Comment on above: The drugs N-Acetylcy steine and Metamizole may falsely depress this assay. Reference Range HDL <40 mg/dL Low HDL Cholesterol HDL >or= 60 mg/dL High HDL Cholesterol Serum or plasma cholesterol in VLDL measurement (mass/volume)on 10-07-2021 Cholesterol in VLDL [Mass/Vol] 13 mg/dL 5-40 [facility] Work Phone: Serum or plasma creatinine m easurement (mass/volume)on 10-07-2021 Creatinine [Mass/Vol] 0.80 mg/dL 0.55-1.02 [facility] Work Phone: Comment on above: The validity of the calculated GFR & GFRAA in patients over 70 years has not been determined. Clinical correlation is essential. Serum or plasma low density lipoprotein (LDL) cholesterol measurement (mass/volume)on 10-07-2021 Cholesterol in LDL [Mass/Vol] 67 mg/dL 0-130 [facility] [place] Work Phone: Serum or plasma urea nitroge n measurement (mass/volume)on 10-07-2021 Urea nitrogen [Mass/Vol] 13 mg/dL 7-18 [facility] Work Phone: Thin prep Papanicolaou smear with manual screeningon 10-07-2021 Thin prep Papanicolaou smear with manual screening 13 U/L 15-37 [facility] Work Phone: Thin prep Papanicolaou smear with manual screening 2 5-15 [facility] Work Phone: Thin prep Papanicolaou smear with manual screening 11.7 mg/L NO RANGE EST. [facility] Work Phone: Urine creatinine measurement (mass/volume)on 10-07-2021 Creatinine (U) [Mass/Vol] 166.00 mg/dL NO RANGE EST. [facility] Work Phone: Whole blood hemoglobin A1c/t otal hemoglobin ratio (mass fraction)on 10-07-2021 HbA1c (Bld) [Mass fraction] 5.9 % 3.8-5.6 [facility] Work Phone: Comment on above: Normal < 5.7 % Predi abetic 5.7 - 6.4 % Diabetic >or= 6.5 % Please note range changes. KNEE WO RTon 10-27-2020 KNEE WO RT [place] [id number] Patient: GUADALUPE DAVIS Phone#: : 1955 Age: 65 Gender: F Pt. Type: Out Account: [id number] Location: Ordering: [employer] Exam Date: 10/27/202013:57 Family Phys: Charge Code: [id number] Physician: Maries Order #: [id number] DLP Dose#: PROCEDURE: MRI KNEE RT WITHOUT CONTRAST COMPARISON: None. INDICATIONS: Locking and instability right knee. TECHNIQUE: A complete multi-planar MRI was performed. FINDINGS: MEDIAL COMPARTMENT MEDIAL MENISCUS: There is complex tear of the posterior horn of the medial meniscus. There is complex tear at the anterior medial aspect of the medial meniscus. There is extrusion of the meniscus. There is tear at the posterior root. HYALINE CARTILAGE: There is thinning of the articular cartilage. BONES: Marrow edema is present at the anterior medial margin of the medial tibial plateau. MCL AND MEDIAL CAPSULE: Posterior capsules thickened and abnormal in signal consistent with tear. LATERAL COMPARTMENT LATERAL MENISCUS: There is complex tear at the mid apex of the lateral meniscus. HYALINE CARTILAGE: Abnormal signal is present in the tibial articular cartilage consistent with tear. BONES: Normal. No marrow pathology, fracture, or significant arthropathy. LCL/POSTEROLAT. COMPLEX: There is abnormal signal and thickening of the posterior capsule consistent with injury. ACL: Normal appearing ligament. PCL: Normal appearing ligament. MENISCOFEMORAL: Normal meniscofemoral ligaments. PATELLOFEMORAL: The lateral patellofemoral joint space is narrowed. There is minimal lateral subluxation of the patella. EFFUSION: A moderate joint effusion is present. OTHER: Negative. Continued Report - Page 2 of 2 Patient: GUADALUPE DAVIS Phone#: : 1955 Age: 65 Gender: F Pt. Type: Out Account: [id number] Location: Ordering: [employer] Exam Date: 10/27/2020/13:57 Family Phys: Charge Code: [id number] Physician: Maries Order #: [id number] DLP Dose#: CONCLUSION: There is complex tear of the medial aspect of the medial meniscus and posterior horn of the medial meniscus. Chondromalacia of the adjacent tibial plateau anterior medially is noted. Small suprapatellar joint effusion is present. There is complex tear at the apex of the lateral meniscus. Joint space narrowing is present at the patellofemoral joint. Dictated by: Mira Mike MD on 10/27/2020 at 17:23 Approved by: Mira Mike MD on 10/27/2020 at 17:42 [facility] OBSOLETEon 02-18-2018 OBSOLETE Refill (AGCARDWST) EDWIN DAVIS ([id number]) 1955 FDate Time Provider Department02/18/18 GAETANO PALAFOX AGCARDWST During your visit today, we recorded the following information about you:Allergies As of Date: 02/18/2018 Noted Allergy ReactionKEFLEX (CEPHALEXIN) 04/28/2006 Comments: yeast infectionNEOSPORIN ([id number]*0 12/02/2010 15 - Contraindication-Medical Amor* Comments: Pt applied neosporin to cut on leg and made the area very red and inflammedDate Reviewed: 07/05/2017Reviewed by: Estella (Clarita Alfonso - Fully AssessedReason for Visit: Refill Request [94]Order(s):XARELTO 20 mg tabletTAKE ONE TABLET BY MOUTH ONCE DAILYDisp: 30 tabletRfl: 11Prescriptions as of 02/18/2018 Sig: XARELTO 20 MG TABLET TAKE ONE TABLET BY MOUTH ONCE* ATORVASTATIN 10 MG TABLET Take 10 mg by mouth once joseluis* FLECAINIDE 100 MG TABLET Take 1 tablet by mouth twice * METOPROLOL TARTRATE 50 MG TAB* Take 0.5 tablets by mouth twi* METFORMIN 500 MG TABLET Take 1,000 mg by mouth twice * * DAILY MULTIVITAMIN TABLET Take one(1) tablet daily.Problem List As Of Date 02/18/2018 Noted Resolved 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] INVALID FOR* SYMPTOMATIC FEMALE CLIMACTERIC STATE [N95.1] INVALID FOR* ATROPHIC VAGINITIS [N95.2] INVALID FOR* CYSTOCELE, MIDLINE [N81.11] INVALID FOR* VAGINAL ENTEROCELE [N81.5] INVALID FOR* Rectocele, female [N81.6] INVALID FOR* Stool incontinence [R15.9] INVALID FOR* Fecal incontinence [R15.9] INVALID FOR* Irritable bowel syndrome with diarrhea [K58.0] INVALID FOR* Vaginal wall prolapse [N81.10] INVALID FOR* Chronic atrial fibrillation (HCC) [I48.2] INVALID FOR* Depression [F32.9] INVALID FOR* Transient insomnia [F51.02] INVALID FOR* A-fib (HCC) [I48.91] INVALID FOR* Obesity, Class III, BMI >= 40 (morbid obesity) *INVALID FOR*Prescriptions ordered this encounter Disp Refills Start End XARELTO 20 MG TABLET 30 t* 11 02/20/2018 Cmt: This prescription was filled on 02/18/2018. Any refills authorized will be placed on file. Sig: TAKE ONE TABLET BY MOUTH ONCE DAILYMedications Discontinued During This Encounter rivaroxaban (XARELTO) 20 mg tablet 30 t* 11 02/24/2017 02/20/2018 Class: Print RX Cmt: This prescription was filled today. Any refills authorized will be placed on file. Route: ORAL Sig: Take 1 tablet by mouth once daily. Disc: Reason for discontinue is not on file. Status:Closed by CLARISSE REILLY RN on 02/20/18 [facility] [place] 07-05-2017 CNOV Office Visit (AGCARDWST) EDWIN DAVIS ([id number]) 1955 [facility] [place] Time Provider Department07/05/17 1:30 PM VIVIENNE, GAETANO E AGCARDWST During your visit today, we recorded the following information about you: Pulse Blood pressure Weight 68/minute 133/81 120.6 kgGaetano Palafox MD 07/05/2017 2:49 PM SignedPERTINENT CARDIAC HISTORYAtrial fib - persistent, c/version failure, multiple drug failures, PVI 02/17OSA - CPAPDMADHERENCE TO GUIDELINESACE-I or ARB for HF with prior LVEFANDlt;40 (NQF 0081) - N/AASA or Plavix for ASHD (NQF 0067) - N/ABeta vaishali for ASHD with prior [place] or prior LVEFANDlt;40 (NQF 0070) - N/ABeta vaishali for HF with prior LVEFANDlt;40 (NQF 0083) - N/AACE-I or ARB for ASHD with DM or prior LVEFANDlt;40 (NQF 0066) - N/AStatin therapy for ASHD or FHL or DM - N/ABMI documented and plan if ANDgt;25 (NQF 0421) - lifestyle recommendation formTobacco use screening and referral (NQF 0028) - lifestyle recommendation formRecommendation for whole food, plant based diet - lifestyle recommendation formCLINICAL IMPRESSION/PLAN:Guadalupe Davis is doing well and is maintaining sinus rhythm. She's beenadvised to continue her current medication, including flecainide and Xarelto.Her metoprolol will be continued at the lower dose.She's been advised to follow-up with pulmonology. I will see her in 6 months atwhich time we will consider decreasing her flecainide dose. Dr. Baum wantedto keep her on antiarrhythmic therapy for at least one year after her ablation.She's been advised to call if she has recurrent atrial fibrillation. She hasalso been encouraged to increase her activity and get her weight under bettercontrol.Written and verbal health teaching given to patient, patient verbalizesunderstanding and agrees with treatment plan.This note was generated using [employer] voice recognition system, and there may besome incorrect words, spellings, and punctuation that were not noted inchecking the note before saving.DIAGNOSIS FOR VISIT:PAFHISTORY OF PRESENT ILLNESSGuadalupe Davis returns for follow-up of her atrial fibrillation. She hasmaintained sinus rhythm clinically. She denies chest discomfort. Her exercisetolerance continues to be good. She's had no orthopnea, edema, syncope, TIAs,amaurosis or claudication.She reports better exercise tolerance since the metoprolol was decreased.ALLERGIES:ALLER GIESAllergen Reactions- Keflex [Cephalexin] yeast infection- Neosporin [Neomycin* Contraindication-Medical Surgical Pt applied neosporin to cut on leg and made the area very red and inflammedCURRENT OUTPATIENT MEDICATIONS:atorvastatin (LIPITOR) 10 mg tablet Take 10 mg by mouth once daily.flecainide (TAMBOCOR) 100 mg tablet Take 1 tablet by mouth twice daily.metoprolol tartrate, short acting, (LOPRESSOR) 50 mg tablet Take 0.5 tablets bymouth twice daily.rivaroxaban (XARELTO) 20 mg tablet Take 1 tablet by mouth once daily.metFORMIN (GLUCOPHAGE) 500 mg tablet Take 1,000 mg by mouth twice daily withmeals.multivitamins(D AILY MULTIVITAMIN TAB) Take one(1) tablet daily.PHYSICAL EXAMINATION:VITAL SIGNS: BP 133/81 Pulse 68 Wt 265 lb 14.4 oz (120.6kg)Chest: Clear to percussion and auscultation. Trachea is midline. Air entry isequal. Cardiac: Regular rhythm. S1 and S2 are normal. PMI is nondisplaced.There is a soft systolic ejection murmur. Carotids are brisk without bruits.JVP is less than 10 cm. Abdomen: Soft and nontender. There are no pulsatilemasses or bruits. No liver enlargement. Bowel sounds are active.Extremities: Trace edema. Pulses are intact and symmetrical.CT showed normal pulmonary venous anatomy without stenosis.Recent EKG showed sinus rhythm with mild QRS widening. There is no significantchange. Rhythm is sinus today, by exam.Electronically Signed:Gaetano Palafox MDJuly 05, 2017 1:57 PMCC: Riaz Urbina MD 07/05/2017 1:57 PM SignedLIFESTYLE CHANGEA healthy lifestyle is the most important component of your overall treatmentplan. Please give serious thought to the following areas and commit to makinglong term changes.EAT A WHOLE FOOD, PLANT BASED DIETThe nutrition your body gets is more important than the medicine you take.What matters most is the overall way you eat. We encourage you to minimize theuse of animal products (which include dairy and all meats except fatty fish)and use whole, unprocessed plant foods to provide your protein, vitamins andother nutrients. We have a lot of information to share with you on this topic. We also hold Shared Medical Appointments, where you can come visit with in the company of other patients and spend over an hour talking aboutthe challenges of changing the way you eat. This is not a ANDquot;dietANDquot;.It is a way of life that you will keep with you.EXERCISE REGULARLYIt is not important to spend hours in the gym, lifting weights and perspiringheavily. A total of 2-3 hours per week of aerobic (causing you to bemoderately short of breath) exercise is sufficient to improve your health.Talk to us before you begin a new exercise program, if you have heart diseaseor experience shortness of breath or chest pain.REDUCE STRESSChronic emotional and physical stress leads to disease. Ways of reducingstress include meditation, visualization, prayer, yoga and other forms ofrelaxation therapy. Consistency is the pak. Find a technique that works foryou and do it every day.CULTIVATE RELATIONSHIPSLoneliness and isolation have a major negative impact on health. Seek outothers who can love, care for and nurture you. Avoid hurtful relationships.MAINTAIN IDEAL BODY WEIGHTThe best way to do this is to do all the things above. Our bodies naturallyfind the right weight if we keep moving and feed ourselves the right food. Ifyour BMI is greater than 25, we strongly recommend a referral to a weightmanagement program. Please speak to us or your family physician aboutavailable programs.AVOID NICOTINE IN ALL FORMSThis includes all tobacco products, whether chewed, smoked, vaped, or rubbed onthe skin. Smoking cessation programs, which can make use of tobaccosubstitutes, medications to suppress cravings and behavior management, areavailable. Please contact your family physician about programs in your area.Referring Provider: GAETANO PALAFOX [[id number]]Allergies As of Date: 07/05/2017 Noted Allergy ReactionKEFLEX (CEPHALEXIN) 04/28/2006 Comments: yeast infectionNEOSPORIN ([id number]-VJ*0 12/02/2010 15 - Contraindication-Medical Amor* Comments: Pt applied neosporin to cut on leg and made the area very red and inflammedDate Reviewed: 07/05/2017Reviewed by: Estella Alfonso - Fully AssessedReason for Visit: Recheck [92]Primary Visit Diagnosis:PAF (paroxysmal atrial fibrillation) (HCC) [I48.0]Prescriptions as of 07/05/2017 Sig: ATORVASTATIN 10 MG TABLET Take 10 mg by mouth once joseluis* FLECAINIDE 100 MG TABLET Take 1 tablet by mouth twice * METOPROLOL TARTRATE 50 MG TAB* Take 0.5 tablets by mouth twi* RIVAROXABAN 20 MG TABLET Take 1 tablet by mouth once d* METFORMIN 500 MG TABLET Take 1,000 mg by mouth twice * * DAILY MULTIVITAMIN TABLET Take one(1) tablet daily.Medication notes this encounter ATORVASTATIN 10 MG TABLET >> Estella Alfonso LPN 07/05/2017 1:37 PM >> ESTELLA ALFONSO LPN antoine Jul 05, 2017 1:37 PM Received from: External Pharmacy Received Sig: TAKE ONE TABLET BY MOUTH ONCEDAILYProblem List As Of Date 07/05/2017 Noted Resolved 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] INVALID FOR* SYMPTOMATIC FEMALE CLIMACTERIC STATE [N95.1] INVALID FOR* ATROPHIC VAGINITIS [N95.2] INVALID FOR* CYSTOCELE, MIDLINE [N81.11] INVALID FOR* VAGINAL ENTEROCELE [N81.5] INVALID FOR* Rectocele, female [N81.6] INVALID FOR* Stool incontinence [R15.9] INVALID FOR* Fecal incontinence [R15.9] INVALID FOR* Irritable bowel syndrome with diarrhea [K58.0] INVALID FOR* Vaginal wall prolapse [N81.10] INVALID FOR* Chronic atrial fibrillation (HCC) [I48.2] INVALID FOR* Depression [F32.9] INVALID FOR* Transient insomnia [F51.02] INVALID FOR* A-fib (HCC) [I48.91] INVALID FOR* Obesity, Class III, BMI >= 40 (morbid obesity) *INVALID FOR* Other instructions from your clinician: LIFESTYLE CHANGE A healthy lifestyle is the most important component of your overall treatment plan. Please give serious thought to the following areas and commit to making assisted changes. EAT A WHOLE FOOD, PLANT BASED DIET The nutrition your body gets is more important than the medicine you take. What matters most is the overall way you eat. We encourage you to minimize the use of animal products (which include dairy and all meats except fatty fish) and use whole, unprocessed plant foods to provide your protein, vitamins and other nutrients. We have a lot of information to share with you on this topic. We also hold Shared Medical Appointments, where you can come visit with Dr. Palafox in the company of other patients and spend over an hour talking about the challenges of changing the way you eat. This is not a "diet". It is a way of life that you will keep with you. EXERCISE REGULARLY It is not important to spend hours in the gym, lifting weights and perspiring heavily. A total of 2-3 hours per week of aerobic (causing you to be moderately short of breath) exercise is sufficient to improve your health. Talk to us before you begin a new exercise program, if you have heart disease or experience shortness of breath or chest pain. REDUCE STRESS Chronic emotional and physical stress leads to disease. Ways of reducing stress include meditation, visualization, prayer, yoga and other forms of relaxation therapy. Consistency is the pak. Find a technique that works for you and do it every day. CULTIVATE RELATIONSHIPS Loneliness and isolation have a major negative impact on health. Seek out others who can love, care for and nurture you. Avoid hurtful relationships. MAINTAIN IDEAL BODY WEIGHT The best way to do this is to do all the things above. Our bodies naturally find the right weight if we keep moving and feed ourselves the right food. If your BMI is greater than 25, we strongly recommend a referral to a weight management program. Please speak to us or your family physician about available programs. AVOID NICOTINE IN ALL FORMS This includes all tobacco products, whether chewed, smoked, vaped, or rubbed on the skin. Smoking cessation programs, which can make use of tobacco substitutes, medications to suppress cravings and behavior management, are available. Please contact your family physician about programs in your area. Status:Closed by GAETANO PALAFOX MD on 07/05/17 [facility] PROGRESSon 07-05-2017 Protein mass conc HNO ID: [id number] thor: Gaetano Mena: (none)Author Type: PhysicianType: Progress NotesFiled: 07/05/2017 2:49 PMNote Text:PERTINENT CARDIAC HISTORYAtrial fib - persistent, c/version failure, multiple drug failures, PVI8/17OSA - CPAPDMADHERENCE TO GUIDELINESACE-I or ARB for HF with prior LVEF<40 (NQF 0081) - N/AASA or Plavix for ASHD (NQF 0067) - N/ABeta vaishali for ASHD with prior WI or prior LVEF<40 (NQF 0070) - N/ABeta vaishali for HF with prior LVEF<40 (NQF 0083) - N/AACE-I or ARB for ASHD with DM or prior LVEF<40 (NQF 0066) - N/AStatin therapy for ASHD or FHL or DM - N/ABMI documented and plan if >25 (NQF 0421) - lifestyle recommendation formTobacco use screening and referral (NQF 0028) - lifestyle recommendationformRecomme ndation for whole food, plant based diet - lifestyle recommendationformCLINICA L IMPRESSION/PLAN:Guadalupe Davis is doing well and is maintaining sinus rhythm. She's beenadvised to continue her current medication, including flecainide andXarelto. Her metoprolol will be continued at the lower dose.She's been advised to follow-up with pulmonology. I will see her in 6months at which time we will consider decreasing her flecainide dose. wanted to keep her on antiarrhythmic therapy for at least one yearafter her ablation.She's been advised to call if she has recurrent atrial fibrillation. Shehas also been encouraged to increase her activity and get her weight underbetter control.Written and verbal health teaching given to patient, patient verbalizesunderstanding and agrees with treatment plan.This note was generated using [employer] voice recognition system, and theremay be some incorrect words, spellings, and punctuation that were notnoted in checking the note before saving.DIAGNOSIS FOR VISIT:PAFHISTORY OF PRESENT ILLNESSGuadalupe Davis returns for follow-up of her atrial fibrillation. She hasmaintained sinus rhythm clinically. She denies chest discomfort. Herexercise tolerance continues to be good. She's had no orthopnea, edema,syncope, TIAs, amaurosis or claudication.She reports better exercise tolerance since the metoprolol was decreased.ALLERGIES:ALLER GIESAllergen Reactions- Keflex [Cephalexin] yeast infection- Neosporin [Neomycin* Contraindication-Medical Surgical Pt applied neosporin to cut on leg and made the area very red andinflammedCURRENT OUTPATIENT MEDICATIONS:atorvastatin (LIPITOR) 10 mg tablet Take 10 mg by mouth once daily.flecainide (TAMBOCOR) 100 mg tablet Take 1 tablet by mouth twice daily.metoprolol tartrate, short acting, (LOPRESSOR) 50 mg tablet Take 0.5tablets by mouth twice daily.rivaroxaban (XARELTO) 20 mg tablet Take 1 tablet by mouth once daily.metFORMIN (GLUCOPHAGE) 500 mg tablet Take 1,000 mg by mouth twice dailywith meals.multivitamins(DAILY MULTIVITAMIN TAB) Take one(1) tablet daily.PHYSICAL EXAMINATION:VITAL SIGNS: BP 133/81 Pulse 68 Wt 265 lb 14.4 oz (120.6kg)Chest: Clear to percussion and auscultation. Trachea is midline. Airentry is equal. Cardiac: Regular rhythm. S1 and S2 are normal. PMI isnondisplaced. There is a soft systolic ejection murmur. Carotids arebrisk without bruits. JVP is less than 10 cm. Abdomen: Soft andnontender. There are no pulsatile masses or bruits. No liverenlargement. Bowel sounds are active. Extremities: Trace edema. Pulsesare intact and symmetrical.CT showed normal pulmonary venous anatomy without stenosis.Recent EKG showed sinus rhythm with mild QRS widening. There is nosignificant change. Rhythm is sinus today, by exam.Electronically Signed:Gaetano Palafox MDJanuary 2017 1:57 PMCC: Art Pierre DO Normal [facility] ALLIED HEALTHon 05-23-2017 ALLIED HEALTH HNO ID: [id number] thor: Sandra Childress RtService: (none)Author Type: (none)Type: Allied HealthFiled: 05/23/2017 1:08 PMNote Text: Radiology Service Progress NotePATIENT NAME: Guadalupe WolfeRN: [id number] OF SERVICE: May 23, 2017TIME: 1:07 PMPATIENT IDENTITY VERIFICATION COMPLETED USING TWO (2) METHODS: Patientconfirmed name verbally and ID band matches..PATIENT GENDER DATA: Female. status: : NoBreastfeeding status: NO.PATIENT RELEVANT IMPLANT DATA REVIEWED: YesRADIOLOGY DEPARTMENT: CT; Exam(s) Completed: PULMONARY VEINPERIPHERAL IV DATA: Site assessment: Clean,Dry and Intact, Sitedisposition DiscontinuedSIGNED BY: Sandra Childress RtNov2016 1:07 PM [facility] CT PULMONARY VEIN W IVCONon 05-23-2017 CT PULMONARY VEIN W IVCON * * *Final Report* * *DATE OF EXAM: May 23 2017 1:11PM [facility] 0464 - CT PULMONARY VEIN W IVCON / REASON: pulmonary vein stenosis * * * * Physician Interpretation * * * * CTA of the chest dated 05/23/2017 1:11 PMComparison: ...History: 61 year-old female with history of atrial fibrillation status post RFA/PVI of the pulmonary vein ostia in 02/02/2017. There is a concern for pulmonary venous patency.Technique: Multi-detector CT technology was employed (Siemens Definition Flash dual source scannerPhiaustin hospital and clinic Logi-Serve 64-slice [facility] Somatom Force dual source scanner). Spiral imaging with retrospective Axial, sequential imaging with prospective gating was performed of the chest following the IV administration of contrast material. A low-osmolar contrast agent was used (90 cc of Omnipaque 350).CT Dose-Length Product (DLP): 565 mGycmCT Dose Reduction Employed: YesFor optimization of anatomic evaluation, multiplanar reconstruction, maximum intensity projections, and advanced 3-D off-line postprocessing were performed on a dedicated stand-alone workstation under the direct supervision of the interpreting physician.RESULT:Potentia l study limitations: None.The chest wall, mediastinum, and pericardium, are unremarkable. The main pulmonary artery is dilated (3.4cm), which can be seen in pulmonary hypertension. No significant adenopathy is identified in the axilla, mediastinum, and brenda.Lung windows within normal limits. There is 4mm ground glass nodule in the left lower lobe (6:31). There is no pulmonary parenchymal mass, infiltrate, or pleural effusion.The cardiac chambers are remarkable for moderate biatrial enlargement.VASCULAR WITH ADVANCED 3-D OFF-LINE POSTPROCESSING:The left atrium and atrial appendage show no evidence of thrombus. The left atrium receives 4 widely patent pulmonary veins. The right middle vein is a branch of the right superior pulmonary vein. No pulmonary vein stenosis is noted. There is slight narrowing of the ostium of the left lower pulmonary vein as it crosses the descending thoracic aorta with no wall thickening and no significant stenosis. The coronary sinus drains into the right atrium normally and is widely patent.The aortic valve is trileaflet, and free from calcifications. The visualized portions of the ascending and descending thoracic aorta are of normal size. The aortic arch branching pattern is normal with likely direct origin of the left vertebral artery from the aortic arch. There is no acute aortic pathology, such as dissection, intramural hematoma, or contained rupture.The coronary arteries have normal origins and courses. There are mild scattered coronary calcifications identified, though this study was not optimized for coronary artery evaluation.The limited images of the upper abdomen are unremarkable.IMPRESSION:1 . Normal pulmonary venous anatomy with no pulmonary vein stenosis aside from slight narrowing of the ostium of the left lower pulmonary vein as it crosses the descending thoracic aorta with no wall thickening and no significant stenosis.2. No left atrial or left atrial appendage thrombus.3. The main pulmonary artery is dilated (3.4cm), which can be seen in pulmonary hypertension.4. Moderate bi-atrial enlargement.5. Small <6mm ground glass nodule in the left lower lobe (6:31). If risk factors for lung malignancy exist, consider follow up imaging in 12 months.[place] Winder: DEMIAN Transcribe Date/Time: May 23 2017 1:49PDictated by : DEMETRI CHUNG MDThis examination was interpreted and the report reviewed and electronically signed by: OSWALD CORMIER MD on May 23 2017 2:36PM [id number] Normal [facility] NURSING PROGon 05-23-2017 NURSING PROG HNO ID: [id number] thor: Meet (Lucy) GEENA Strausservice: RadiologyAuthor Type: Registered NurseType: Nursing Progress NoteFiled: 05/23/2017 12:36 PMNote Text: Radiology Service Progress NotePATIENT NAME: Guadalupe RandallN: [id number] OF SERVICE: May 23, 2017TIME: 12:33 PMPATIENT WEIGHT: 250 LBSPATIENT IDENTITY VERIFICATION COMPLETED USING TWO (2) METHODS: Patientconfirmed name verbally, ID Band and Date of .PATIENT GENDER DATA: Female. status: : NoBreastfeeding status: NO.CONTRAST INDUCED NEPHROPATHY RISK FACTORS: Patient age > 60 years andDiabetic: No and Yes. Current medication(s): Metformin. Patientcurrently has insulin pump?: No.CREATININE:CreatinineD ate Value Ref Range Ohqsjh5803/11/2017 0.67 (L) 0.70 - 1.40 mg/dL Final02/02/2017 0.62 (L) 0.70 - 1.40 mg/dL Final02/01/2017 0.65 (L) 0.70 - 1.40 mg/dL Final eGFR-All Other RacesDate Value Ref Range Sgrrse6103/11/2017 >60 >60 . Final eGFR-Afric an AmericanDate Value Ref Range Dsmsit0303/11/2017 >60 >60 Final P.O.C.T. RESULTS: See Lab Tab May 23, 2017TREATMENT: No Hydration needed.ALLERGIES: Reviewed and unchangedCONTRAST ALLERGY: NO.IV SITE: Ambulatory: A peripheral IV was started in the Rightantecubital site with a Angio cath: 20 gauge.IV SITE APPEARANCE: Clean,Dry and IntactSIGNED BY: Meet Strauss RNNovember 2016 12:33 PM Normal [facility] Basic Metabolic Panlon 03-11 Anion gap 10 mmol/L Normal 9-18 [facility] Comment on above: Performed By: #### C SHEYLA BMP ####[id number] [place], [place] [phone] Calcium 9.7 mg/dL Normal 8.5-10.5 [facility] Comment on above: Performed By: #### C SHEYLA, BMP ####[id number] [place], [place] [phone] Chloride 103 mmol/L Normal 98-110 [facility] Comment on above: Performed By: #### C SHEYLA, BMP ####[address] [phone] CO2 30 mmol/L Normal 23-32 [facility] Comment on above: Performed By: #### C BC, BMP ####[place] [phone] Creatinine 0.67 mg/dL Low 0.70-1.40 [facility] Comment on above: Performed By: #### C BC, BMP ####[place] [phone] eGFR (non-black) mL/min/{1.73_m2} Normal >60 [facility] Comment on above: Performed By: #### C BC, BMP ####[place] [phone] Glucose mass conc 101 mg/dL High 65-100 [facility] Comment on above: Performed By: #### C BC, BMP ####[place] [phone] Potassium molar conc 4.8 mmol/L Normal 3.5-5.0 [facility] Comment on above: Performed By: #### C BC, BMP ####[place] [phone] Sodium 143 mmol/L Normal 132-148 [facility] Comment on above: Performed By: #### C BC, BMP ####[place] [phone] Urea nitrogen 15 mg/dL Normal 8-25 [facility] Comment on above: Performed By: #### C BC, BMP ####[place] [phone] CBCon 03-11-2017 Erythrocyte distribution width Auto Ratio (RBC) 13.8 % Normal 11.5-15.0 [facility] Comment on above: Performed By: #### C BC, BMP ####[place] [phone] Erythrocytes (RBC) 4.91 10*6/uL Normal 3.90-5.20 [facility] Comment on above: Performed By: #### C BC, BMP ####[place] [phone] Hematocrit (HCT) 40.4 % Normal 36.0-46.0 [facility] Comment on above: Performed By: #### C SHEYLA, BMP ####[place] [phone] Hemoglobin mass conc (Bld) 13.2 g/dL Normal 11.5-15.5 [facility] Comment on above: Performed By: #### C SHEYLA, BMP ####[place] [phone] MCH 26.9 pG Normal 26.0-34.0 [facility] Comment on above: Performed By: #### C SHEYLA, BMP ####[place] [phone] MCHC mass conc (RBC) 32.7 g/dL Normal 30.5-36.0 [facility] Comment on above: Performed By: #### C SHEYLA, BMP ####[place] [phone] MCV 82.3 fL Normal 80.0-100.0 [facility] Comment on above: Performed By: #### C SHEYLA, BMP ####[place] [phone] Platelet mean volume (PMV) 10.0 fL Normal 9.0-12.7 [facility] Comment on above: Performed By: #### C SHEYLA, BMP ####[place] [phone] Platelets 245 10*3/uL Normal 150-400 [facility] Comment on above: Performed By: #### C SHEYLA, BMP ####[place] [phone] WBC (Leukocytes) 8.11 10*3/uL Normal 3.70-11.00 [facility] Comment on above: Performed By: #### C SHEYLA, BMP ####[place] [phone] HISTORY PHYSICALon 7 HISTORY PHYSICAL HNO ID: [id number] thor: Chasidy DrewService: Cardiovascular MedicineAuthor Type: Physician AssistantType: HANDPFiled: 03/11/2017 7:13 AMNote Text: UPDATED PROCEDURAL SEDATION HISTORY AND PHYSICAL EXAMINATIONSERVICE DATE: 03/11/2017SERVICE TIME: 7:10 AMPHYSICAL EXAM MUST BE COMPLETED ON ADMISSIONThe History and Physical (completed in the past 30 days) has been reviewedand the patient has been examined. The contents accurately reflect thepatient's condition with the following additions or revisions since theHANDP was completed.This HANDP can be found in the Electronic Medical Record.02/24/17Examinatio n indicates that This is post ablation recurrent A.Fib that ispersistent..Provisional Diagnosis/Treatment Plan: CardioversionASA Class: ASA Class:: Patient with mild systemic diseasePatient Vitals for the past 24 hrs: BP Temp Temp src Pulse Resp SpO2 Height Kfdrqu20/08/17 0623 114/68 37 ?C (98.6 ?F) Temporal Art 94 18 98 % 168.9 cm (5'6.5") -03/11/17 0619 - - - - - - - 114.7 kg (252 lb 12.8 oz)AIRWAY: Airway Visualization of Uvula: YesMouth opening greater than 2 fingerbreadths: YesNeck Full Range of Motion: YesLUNGS: Lungs clear to auscultation, Good diaphragmatic excursionCARDIAC: Rhythm: irregularly irregular and atrial fibrillationCAROTIDS: Without bruitsLE PULSES: palpable.History of TIA: NoHistory of WI: NoDiabetes: NoSEDATION GOAL: ModerateDATA: Diagnostic tests reviewed for today's visit:Most recent EKGMost recent labsPOC INR:CBC: No results for input(s): WBC, RBC, HB, HCT, PLT, MCV, MCH, MPV, RDWin the last 720 hours.Coags: No results for input(s): INR, APTT in the last 720 hours.Invalid input(s): PTBMP: No results for input(s): NA, K, CHLOR, CO2, BUN, CREAT, GLUC in thelast 720 hours.SIGNATURE: Chasidy Drew PA-C PATIENT NAME: Guadalupe AlexanderrDATE: March 11, 2017 : 7:10 AM PAGER: [phone] [facility] NURSING PROGon 03-11-2017 NURSING PROG HNO ID: [id number] thor: Tiara (Rn) GEENA Mataervice: NursingAuthor Type: Registered NurseType: Nursing Progress NoteFiled: 03/11/2017 7:55 AMNote Text:Successful cardioversion in SR. at bedside. VSS. Breakfast given.Pt fatemeh diet without difficulty. [facility] PROCEDUREon 03-11-2017 PROCEDURE HNO ID: [id number] thor: BEV Sortoervice: ElectrophysiologyAuthor Type: PhysicianType: ProceduresFiled: 03/11/2017 4:32 PMNote Text:PROCEDURE NOTE: CARDIOVERSIONThe risks, benefits, alternatives, and personnel discussed with patient orrepresentative who consents to the procedure.UNIVERSAL PROTOCOL / SAFETY CHECKLIST: Procedure to be performed: DCcardioversion. Sign in Communication: Completed. Time Out: Team Confirmsthe Correct Patient, Correct Procedure, Correct Site and Site Marking,Correct Position (if applicable). Time: 0800. Affirmation of Time Out:YES. Sign Out Discussion: Completed.Pre-operative diagnosis: post PVI recurrent persistent AFPost-operative diagnosis: sameProcedure type: DC cardioversionStaff: Teagan Corbin MDBrief History: 61 YO F w persistent AF - s/p PVI 02-01-17. Flecainidestarted with recurrent AF and here for DCC.The patient was placed on a monitor and supplemental oxygen. Adjunctairway equipment, suction and other necessary items were prepared. Thepatient was sedated with IV brevital. Following sedation patient wascardioverted at 200 with conversion to normal sinus rhythm. A postconversion EKG was completed. The patient tolerated the procedure well.Assessment: successful DCCPlan/Recommendations: continue current medsMedication changes: no changesAppointment: Pardeep Correa MDElectrophysiology staff pager [phone] 8, 2017 4:31 PM [facility] HOSPon 03-03-2017 HOSP Patient:David Davis da GMRN: Height:5' 6.5"(1.689 m)Weight:252 lb 12.8 oz (114.669 kg)Outpatient Medications as of 03/11/17:flecainide (TAMBOCOR) 100 mg tabletrivaroxaban (XARELTO) [address] (PROTONIX) 40 mg tabletmetoprolol tartrate, short acting, (LOPRESSOR) 25 mg tabletmetFORMIN (GLUCOPHAGE) 500 mg tabletmultivitamins(DAILY MULTIVITAMIN TAB)Admission/Clinic Administered Medications as of 03/11/17:Patient has no admission medications.Problem List:Carcinoma in situ of cervix uteri [D06.9]Symptomatic menopausal or female climacteric states [N95.1]Postmenopausal atrophic vaginitis [N95.2]Cystocele, midline [N81.11]Vaginal enterocele, congenital or acquired [N81.5]Rectocele, female [N81.6]Stool incontinence [R15.9]Fecal incontinence [R15.9]Irritable bowel syndrome with diarrhea [K58.0]Vaginal wall prolapse [N81.10]Chronic atrial fibrillation ([facility]) [I48.2]Depression [F32.9]Transient insomnia [F51.02]A-fib ([facility]) [I48.91]Obesity, Class III, BMI >= 40 (morbid obesity) ([facility]) E66.01 [E66.01]Allergies:Keflex [Cephalexin]Neosporin [Dnlsbiiu-Gblgzxcxdr-Uuue myxin]Date Verified: 03/11/17Lab ValuesLab Value Units Date High LowPOTA* 4.8 mmol/L 03/11/2017 5.0 3.5HEMA* 40.4 % 03/11/2017 46.0 36.0Progress Notes (CARD [facility] REJ):Anna Hamilton, RN, RN 02/28/2017 4:34 PM Signed----- Message from Teagan Correa MD sent at 02/28/2017 4:19 PM EDT-----Alli call and tell her I want flecainide restrted 100 bid.DCC with me in 1 week at .Thanks Gilson Hamilton, RN, RN 02/28/2017 4:43 PM SignedLeft message for Guadalupe with message from Dr Baum (see below) regardingstarting back on the Flecainide 100mg BID with arrangements for DCC at [facility] in 1week. Call back number given to confirm message was received.Karol Romosctotamrita Psr 03/01/2017 9:54 AM SignedPt states she would like to have her cardioversion done in [place]. Pt willcontact Dr Palafox's office (her photogrammetric compilation specialist) to arrange this.Kathia Slaughter Cheikh Psr 03/01/2017 10:00 AM SignedSpoke to patient who would like cardio[facility] please advise and call patient with further information.Anna Hamilton, RN, RN 03/01/2017 10:[address] Baum to advise [place], RN, RN 03/02/2017 3:[address] Palafox - unable to do DCC in [place].Please ask her to come to .Thanks C (Routing comment)?Anna Hamilton, RN, RN 03/03/2017 11:29 AM SignedSpoke to Guadalupe who is agreeable to have DCC at [facility].Jessa Esposito Juaquin Psr 03/03/2017 4:24 PM SignedPatient called, scheduled for a cardioversion at [facility] on 03/11/2017at 7:30 am. Agreeable to communication via [employer] where she was sent procedureinstructions which include an arrival time of 6 am.Follow up week EKG has been scheduled at [facility]. She will keep her Aprilappointment with Dr. Palafox in [place] which will equate as the 6-8 week followup protocol and has a May follow up with Dr. Baum.Progress Notes (CARD [facility] WSTR):Estella Kay BRICENO 02/28/2017 10:46 AM SignedPatient calling in asking if you have been able to talk to Dr Baum about hermedications. Also she has concerns that she is having a daily cough that isgetting tiring at this point. She states that there is some clear mucous and PCPfeels it is from the tube when she had ablation done. Notes that PCP is probablygoing to call something in, but she is concerned that the procedure was 4 weeksago and could it be from something else.Estella Palafox MD 02/28/2017 4:26 PM SignedPlease let the patient know that Dr. Baum will be calling her about going backon flecainide and having another cardioversion done. She would like her to be innormal rhythm. I also told Dr. Baum about her mucus production. I would pursuethis with the primary care doctor. It is unlikely to be related to herprocedure at this late date.Gaetano Palafox MD Normal [facility] CBCon 02-02-2017 Erythrocyte distribution width Auto Ratio (RBC) 14.3 % Normal 11.5-15.0 [facility] Comment on above: Performed By: #### C BC CMP, MG1 ####[place] [id number] Erythrocytes (RBC) 4.21 10*6/uL Normal 3.90-5.20 [facility] Comment on above: Performed By: #### C SHEYLA CMP, MG1 ####[place] [phone] Hematocrit (HCT) 35.3 % Low 36.0-46.0 [facility] Comment on above: Performed By: #### C BC CMP, MG1 ####[place] [phone] Hemoglobin mass conc (Bld) 11.4 g/dL Low 11.5-15.5 [facility] Comment on above: Performed By: #### C BC CMP, MG1 ####[place] [phone] MCH 27.1 pG Normal 26.0-34.0 [facility] Comment on above: Performed By: #### C BC CMP, MG1 ####[place] [phone] MCHC mass conc (RBC) 32.3 g/dL Normal 30.5-36.0 [facility] Comment on above: Performed By: #### C BC, CMP, MG1 ####[facility] [place], [place] [phone] MCV 83.8 fL Normal 80.0-100.0 [facility] Comment on above: Performed By: #### C SHEYLA, CMP, MG1 ####[facility] [place], [place] [phone] Platelet mean volume (PMV) 10.1 fL Normal 9.0-12.7 [facility] Comment on above: Performed By: #### Jenny CARRION, CMP, MG1 ####[place] [id number] [place] [phone] Platelets 242 10*3/uL Normal 150-400 [facility] Comment on above: Performed By: #### Jenny CARRION, CMP, MG1 ####[facility] [place], [place] [phone] WBC (Leukocytes) 8.61 10*3/uL Normal 3.70-11.00 [facility] Comment on above: Performed By: #### Jenny CARRION, RA, MG1 ####[facility] [place] [address] [phone] MIRANDADSon 02-02-2017 CNDS HNO ID: [id number] thor: Melissa [facility]) CrespoService: ElectrophysiologyAuthor Type: Nurse PractitionerType: Discharge SummariesFiled: 02/02/2017 8:07 AMNote Text: Attestation signed by Teagan Correa MD at 02/23/2017 9:46 Mohsen Correa MDElectrophysiology staff pager [phone] 2016 9:41 PM -------Department of Cardiovascular MedicineDischarge Summary (Template ID [id number]) ___Patient Name: Guadalupe Alvarado Date: 02/01/2017Discharge Date: 02/02/2017Attending Physician: Teagan Muniz*Primary Service:Admission Diagnosis: paroxysmal afibDischarge Diagnosis: s/p ablationSecondary Diagnoses:Patient Active Hospital Problem List: A-fib ([facility]) (02/01/2017)Reason for Hospitalization/Chief Complaint: s/p ablation for pafHospital Course:Guadalupe Davis is a 61 year old female admitted on 02/01/2017 s/p ablationfor afib performed by Dr. Baum without complications and discharged thefollowing day. She has remained in SR without arrhythmias. She has knownPMH for paroxysmal afib, hypertension, dm2, YOHAN (+CPAP), and overweight.Consults: NoneMajor Procedure or Operation: s/p ablation for paroxysmal afibOther Procedures, Testing AND Radiology: NonePatient Condition at Discharge: StableDisposition: HomeInformation Provided to the Patient:Patient given copy of After Visit Summary which included activityinstructions, diet instructions, wound care instructions, medicationinstructions and follow up appointmentDischarge Medications:Current Discharge Medication ListSTART taking these medicationspantoprazole DR (PROTONIX) 40 mgTake 40 mg by mouth DAILY (6 AM).Qty: 30 tablet Refills: 0CONTINUE these medications which have NOT CHANGEDmetoprolol tartrate (short acting) (LOPRESSOR) 50 mgTake 50 mg by mouth twice daily.Refills: 0XARELTO 20 mg tabletTAKE ONE TABLET BY MOUTH ONCE DAILY, WITH DINNERQty: 30 tablet Refills: 11Comments: This prescription was filled today. Any refills authorized willbe placed on file.metFORMIN (GLUCOPHAGE) 1,000 mgTake 1,000 mg by mouth twice daily with meals.multivitamins(DAILY MULTIVITAMIN TAB)Take one(1) tablet daily.Refills: 0Outpatient Management:* Are there important medication changes and/or outstanding issues thatneed to be addressed: None* What is the plan for follow up: prescheduledFuture AppointmentsDate Time Provider Department [place]02/11/2017 1:00 PM [id number] CARD [facility] REJ CARDAV REJ02/24/2017 1:45 PM [id number] PALACIOS [facility]02/24/2017 1:45 PM [id number] PALACIOS [facility]03/17/2017 10:20 AM [id number] TUCKER (GENEVA) CARDGODFREY REJ03/17/2017 10:20 AM [id number] TUCKER) ABELINO REJ05/12/2017 12:30 PM [id number] ROBISON REJElectronically SIGNED by Licensed Independent Practitioner: GENEVA Clemens [facility] CONSULT PROGon 02-02-2017 CONSULT PROG HNO ID: [id number] thor: Melissa NavarretepoService: ElectrophysiologyAuthor Type: Nurse PractitionerType: Consult Progress NoteFiled: 02/02/2017 7:58 AMNote Text:3Cardiovascular EP Medicine Progress NoteCardiovascular Service: Dr. Duran Norman [facility]ENTERPrselect specialty hospitalry Service: Dr. Teagan Correa, MDDate: February 02, 2017Time: 7:37 Tameka [id number]:Guadalupe Davis is a 61 year old female admitted on 02/01/2017 s/p ablationfor afib. She has known PMH for paroxysmal afib, hypertension, dm2, YOHAN(+CPAP), and overweight.Assessment and Plan:s/p Ablation for PAF (noted ~1996; 10/2016 stress echo: negative forischemia at 115% MPHR, ef~55%) Assessment: stable; IANDO -350cc since adm [3550cc urinary output], pulseox 97-100% on ra; ZEN2RN1-SYBs score 3 (female, htn, dm); currently onxarelto 20mg daily, lopressor 25mg q12hrs Plan: ambulate this morning; likely discharge afternoonWill discuss and review with Dr. Mata.Keflex [Cephalexin]; Neosporin [Ddiqzjur-Jpvdulyfyw-Dgbd myxin]Current Facility-Administered Medications:meperidine (PF) 12.5 mg injection (DEMEROL) 12.5 mg INTRAVENOUS (PACU) PRNCristian Iditoiuipratropium-albute rol 3 mL nebulizer solution (DUONEB) 3 mL INHALATION(PACU) PRN Tony IditoiufentaNYL 50 mcg injection (SUBLIMAZE) 50 mcg INTRAVENOUS (PACU) PRNCristian Iditoiuondansetron 4 mg tab(s) (ZOFRAN) 4 mg ORAL (PACU) PRN Tony IditoiuOrondansetron (PF) 4 mg injection (ZOFRAN) 4 mg INTRAVENOUS (PACU) PRNCristian Iditoiudextrose 40 % 15 g (INSTA-GLUCOSE) 15 g ORAL PRN Isidro (Res) YanOrglucagon 1 mg injection (GLUCAGEN) 1 mg INTRAMUSCULAR PRN Isidro (Res) YanOrdextrose 50% in water 25 mL syringe 12.5 g INTRAVENOUS PRN Isidro (Res) Yanondansetron 4 mg tab(s) (ZOFRAN) 4 mg ORAL q 6 H PRN Isidro (Res) YanOrondansetron (PF) 4 mg injection (ZOFRAN) 4 mg INTRAVENOUS q 6 H PRN Isidro(Res) Yaninsulin lispro injection (rapid acting) (HumaLOG) SUBCUTANEOUS w MEALSFei (Res) Yaninsulin lispro injection (rapid acting) (HumaLOG) SUBCUTANEOUS AT BEDTIMEFei (Res) Lorelei 1 Units at 02/01/17 2114metFORMIN 1,000 mg tab(s) (GLUCOPHAGE) 1,000 mg ORAL BID w MEALS Isidro (Res)Lorelei 1,000 mg at 02/01/17 1821metoprolol tartrate (short acting) 25 mg tab(s) (LOPRESSOR) 25 mg ORAL q12 H Isidro (Res) Lorelei 25 mg at 02/01/17 1821rivaroxaban 20 mg tab(s) (XARELTO) 20 mg ORAL DAILY wDINNER Isidro (Res) Yanmorphine 1 mg injection 1 mg INTRAVENOUS q 4 H PRN Isidro (Res) Lorelei 1 mg at02/01/17 2051PHYSICAL EXAMINATION:BP 120/69 Pulse 78 Temp (Src) 98.4 (Oral) Resp 15 Ht 5' 6.5"(1.69m) Wt 260 lb 9.3 oz (118.2kg) SpO2 100% BMI 41.43 kg/(m2).General appearance: alert, in no acute distressNeck: no adenopathy; thyroid symmetric, normal size, no bruitsLungs: clear to auscultation, no wheezing or rhonchiHeart: RRR without murmur, gallop, or rubs. M: SRAbdomen: Abdomen soft, non-tender. Bowel sounds presentExtremities: Good capillary refill.Peripheral pulses: bilat DPs 2+, no edema noted LEsbilat groins: nontender c/d/i without hematoma or bruitLabs:Component Latest Ref Rng AND Units 02/01/2017 02/02/2017Protein, Total 6.0 - 8.4 g/dL 6.7Albumin 3.5 - 5.0 g/dL 3.6Calcium 8.5 - 10.5 mg/dL 9.2 8.4 (L)Bilirubin, Total 0.0 - 1.5 mg/dL 0.8Alkaline Phosphatase 40 - 150 U/L 57AST 7 - 40 U/L 19Glucose 65 - 100 mg/dL 118 (H) 113 (H)BUN 8 - 25 mg/dL 15 11Creatinine 0.70 - 1.40 mg/dL 0.65 (L) 0.62 (L)Sodium 132 - 148 mmol/L 142 141Potassium 3.5 - 5.0 mmol/L 4.5 3.8Chloride 98 - 110 mmol/L 103 102CO2 23 - 32 mmol/L 27 25Anion Gap 9 - 18 mmol/L 12 14ALT 0 - 45 U/L 11eGFR- >60 >60 >60eGFR-All Other Races >60 . >60 >60WBC 3.70 - 11.00 k/uL 7.58 8.61RBC 3.90 - 5.20 m/uL 4.64 4.21Hemoglobin 11.5 - 15.5 g/dL 12.8 11.4 (L)Hematocrit 36.0 - 46.0 % 38.8 35.3 (L)MCV 80.0 - 100.0 fL 83.6 83.8MCH 26.0 - 34.0 pG 27.6 27.1MCHC 30.5 - 36.0 g/dL 33.0 32.3RDW-CV 11.5 - 15.0 % 13.8 14.3Platelet Count 150 - 400 k/uL 254 242MPV 9.0 - 12.7 fL 10.6 10.1Magnesium 1.7 - 2.6 mg/dL 1.8Edany Norman, MSN, CNPPager: [phone] or [phone] River Health Services[address] [facility].[place], [place] [phone] Normal [facility] Comp Metabolic Panelon 02-02 Alanine aminotransferase (ALT) 11 U/L Normal 0-45 [facility] Comment on above: Performed By: #### C BC, CMP, MG1 ####[place] [phone] Albumin 3.6 g/dL Normal 3.5-5.0 [facility] Comment on above: Performed By: #### C BC, CMP, MG1 ####[place] [phone] Alkaline phosphatase (ALP) 57 U/L Normal 40-150 [facility] Comment on above: Performed By: #### C BC, CMP, MG1 ####[place] [phone] Anion gap 14 mmol/L Normal 9-18 [facility] Comment on above: Performed By: #### C BC, CMP, MG1 ####[place] [phone] Aspartate aminotransferase (AST) 19 U/L Normal 7-40 [facility] Comment on above: Performed By: #### C BC, CMP, MG1 ####[place] [phone] Bilirubin (total) 0.8 mg/dL Normal 0.0-1.5 [facility] Comment on above: Performed By: #### C BC, CMP, MG1 ####[place] [phone] Calcium 8.4 mg/dL Low 8.5-10.5 [facility] Comment on above: Performed By: #### C BC, CMP, MG1 ####[place] [phone] Chloride 102 mmol/L Normal 98-110 [facility] Comment on above: Performed By: #### C BC, CMP, MG1 ####[place] [phone] CO2 25 mmol/L Normal 23-32 [facility] Comment on above: Performed By: #### C BC, CMP, MG1 ####[place] [phone] Creatinine 0.62 mg/dL Low 0.70-1.40 [facility] Comment on above: Performed By: #### C BC, CMP, MG1 ####[place] [phone] eGFR (non-black) mL/min/{1.73_m2} Normal >60 [facility] Comment on above: Performed By: #### C BC, CMP, MG1 ####[place] [phone] Glucose mass conc 113 mg/dL High 65-100 [facility] Comment on above: Performed By: #### C BC, CMP, MG1 ####[place] [phone] Potassium molar conc 3.8 mmol/L Normal 3.5-5.0 [facility] Comment on above: Performed By: #### C BC, CMP, MG1 ####[place] [id number] [place] [phone] Protein 6.7 g/dL Normal 6.0-8.4 [facility] Comment on above: Performed By: #### Jenny CARRION CMP, MG1 ####[place] [phone] Sodium 141 mmol/L Normal 132-148 [facility] Comment on above: Performed By: #### Jenny CARRION CMP, MG1 ####[place] [phone] Urea nitrogen 11 mg/dL Normal 8-25 [facility] Comment on above: Performed By: #### Jenny CARRION CMP, MG1 ####[place] [phone] Glucose POCT ([facility] [place], [place] A Use Only)on 02-02-2017 Glucose mass conc 93 mg/dL Normal 65-100 [facility] Comment on above: Performed By: #### G LUPOC ####[place] [phone] Glucose mass conc 113 mg/dL High 65-100 [facility] Comment on above: Performed By: #### G LUPOC ####[place] [phone] Magnesiumon 02-02-2017 Magnesium 1.8 mg/dL Normal 1.7-2.6 [facility] Comment on above: Performed By: #### Jenny CARRION CMP, MG1 ####[place] [phone] NURSING PROGon 02-02-2017 NURSING PROG HNO ID: [id number] thor: Tatyana (Rn) Ricky, GEENAervice: NursingAuthor Type: Registered NurseType: Nursing Progress NoteFiled: 02/02/2017 8:26 AMNote Text: Nursing Progress NotePatient Name: Guadalupe WolfeRN: [id number] Location: [place] [address] [address]* Daily Note:2000- Report received from offgoing RN, SBAR and ordersreviewed. Groin site assessed with offgoing nurse, no ecchymosis orhematoma noted. Site is soft and non-tender on palp. See flow sheet forassmnt details.2100- Pt positioned for comfort, aware will be able to completelyreposition at 2145. Spouse wishes to remain at BS, discussed protocol andunit routines etc. VSS and remains in sinus [id number]- Assmnt completed, remains unchanged from previous. Groin [id number]- Pt requesting pain medication, states starting to have discomfort inlow back and feeling generalized aches, given oral pain medication astransition for discharge home today.0600- Karen d/c'd in prep for d/c home today. AM labs obtainedand sent. Pt states has had some relief from pain medication. Remains insinus rhythm.This note was completed by: Tatyana García RN [facility] NURSING PROG HNO ID: [id number] thor: Nita (Rn) GEENA Ungerervice: NursingAuthor Type: Registered NurseType: Nursing Progress NoteFiled: 02/02/2017 1:39 PMNote Text: Nursing Progress NotePatient Name: Guadalupe WolfeRN: [id number] Location: [place] [address]/[place] [address]* Daily Note:0750 Report received from offgoing shift. Allergies, chart and resultsreviewed. Assume care of pt at this time.0800 Assessment performed. Pt AANDOx3, LONDONO, FC. Denies numbness or tingling.Denies chest pain or SOB. Groin check performed, No hematomas, noecchymosis, no complications noted. Pulses intact below sites, cap refill<3 seconds.0900 Pt assist up to bathroom, pt able to void 300 CC and then assist tothe chair with light assist x1, pt denies any dizziness or SOB.1000 Pt resting in chair, no needs at this [id number] Assessment performed. No changes noted. Groin check performed. Nohematoma, no ecchymosis. Sites WNL.1310 Discharge instructions given, belongings returned to pt. Vital signsobtained and stable. Pt transferred to restroom for void. This RN assistpt getting dressed.1333 Pt leave unit via wheelchair with volunteers and husbandThis note was completed by: Nita Unger RN [facility] PROGRESSon 02-02-2017 PROGRESS HNO ID: [id number] thor: Daxa Lynn: General Internal MedicineAuthor Type: ResidentType: Progress NotesFiled: 02/02/2017 9:53 AMNote Text: Attestation signed by Teagan Correa MD at 02/23/2017 9:46 Mohsen Correa MDElectrophysiology staff pager [phone] 2016 9:41 PM -------INTERNAL MEDICINE PROGRESS NOTESERVICE DATE: 02/02/2017Summary: Ms. Davis is a 61 year old female w/ hx of DM II on metformin,YOHAN on CPAP, persistent afib, who presents for elective PVI. Per 's note, pt has been diagnosed with PAF for approximately 19 years,and became persistent in 09/2015. Pt was treated with soltalol, amiodarone,and flecainide in the past and had undergone 2 DC cardioversions withearly recurrence of AF (within 48), due to persistent afib causingincreased fatigue, pt decided to go for PVI. Doing well s/p PVI. Planfor discharge today.SUBJECTIVEINTERVAL HISTORY OF PRESENT ILLNESS: Feeling well. Has no groin pain.Denies CP, palpitations or SOB. Feels ready to go home.Current Facility-Administered Medications:magnesium sulfate 1 g in D5W 100 mL 1 g INTRAVENOUS ONCEmeperidine (PF) 12.5 mg injection (DEMEROL) 12.5 mg INTRAVENOUS (PACU) PRNipratropium-albuterol 3 mL nebulizer solution (DUONEB) 3 mL INHALATION(PACU) PRNfentaNYL 50 mcg injection (SUBLIMAZE) 50 mcg INTRAVENOUS (PACU) PRNondansetron 4 mg tab(s) (ZOFRAN) 4 mg ORAL (PACU) PRNOrondansetron (PF) 4 mg injection (ZOFRAN) 4 mg INTRAVENOUS (PACU) PRNdextrose 40 % 15 g (INSTA-GLUCOSE) 15 g ORAL PRNOrglucagon 1 mg injection (GLUCAGEN) 1 mg INTRAMUSCULAR PRNOrdextrose 50% in water 25 mL syringe 12.5 g INTRAVENOUS PRNondansetron 4 mg tab(s) (ZOFRAN) 4 mg ORAL q 6 H PRNOrondansetron (PF) 4 mg injection (ZOFRAN) 4 mg INTRAVENOUS q 6 H PRNinsulin lispro injection (rapid acting) (HumaLOG) SUBCUTANEOUS w MEALSinsulin lispro injection (rapid acting) (HumaLOG) SUBCUTANEOUS AT BEDTIMEmetFORMIN 1,000 mg tab(s) (GLUCOPHAGE) 1,000 mg ORAL BID w MEALSmetoprolol tartrate (short acting) 25 mg tab(s) (LOPRESSOR) 25 mg ORAL q12 Hmorphine 1 mg injection 1 mg INTRAVENOUS q 4 H PRNOBJECTIVEPHYSICAL EXAM:Patient Vitals for the past 24 hrs: BP Temp Temp src Pulse Resp SpO2 Height Nuqkvw53/02/17 0900 - - - 82 25 91 % - -02/02/17 0800 119/69 - - 83 24 96 % - -02/02/17 0700 124/65 - - 82 24 98 % - -02/02/17 0600 127/74 - - 79 17 96 % - -02/02/17 0500 134/101 - - 80 20 98 % - -02/02/17 0400 - 36.9 ?C (98.4 ?F) Oral 77 18 97 % - -02/02/17 0300 - - - 78 17 98 % - -02/02/17 0200 - - - 82 21 98 % - -02/02/17 0100 - - - 81 18 98 % - -02/02/17 0000 - 37.2 ?C (99 ?F) Oral 78 20 98 % - -02/01/17 2300 120/69 - - 78 15 100 % - -02/01/17 2200 124/72 - - 82 16 99 % - -02/01/17 2100 109/64 - - 86 18 97 % - -02/01/17 2000 125/65 37 ?C (98.6 ?F) Oral 88 20 96 % - -02/01/17 1900 135/69 - - 82 12 99 % - -02/01/17 1800 131/69 - - 77 19 96 % - -02/01/17 1700 119/62 - - 69 13 100 % - -02/01/17 1600 112/57 36.5 ?C (97.7 ?F) Oral 72 15 100 % 168.9 cm (5' 6.5")118.2 kg (260 lb 9.3 oz)02/01/17 1500 114/65 - - 73 21 98 % - -02/01/17 1445 115/69 - - 79 17 100 % - -02/01/17 1430 118/66 36 ?C (96.8 ?F) Oral 74 20 100 % - -Body mass index is 41.43 kg/(m2).GENERAL: Alert, no distress, cooperativeLUNGS: Lungs clear to auscultation. Good diaphragmatic excursion.CARDIAC: normal S1 and S2; no rubs, murmurs, or gallopsABDOMEN: Abdomen soft, non-tender, BS normal, No masses or organomegalyEXTREMETIES: No groin hematoma or erythema, incision site with bandageclean and dryPULSES: 2+ radialDATA:Diagnostic tests reviewed for today's visit:Most recent labsIMPRESSION/RECOMMENDA TIONS A-fib (HCC) POA: Yes-hx of P-afib for 19 years-treated with sotalol, amio, flecainide in the past and 2 DCcardioversions with early recurrence-EKG on admission showed afib with controlled rate-on xarelto at home for AC-s/p PVI yesterday, HR in the 60s with sinus rhythm on tele.?Plan-Continue xarelto-monitor for hematoma at incision site.-pain control PRN? DM II-on metformin at home, continue with SSI?dvt prophylaxis - not needed, on xarelto Discharge home this afternoonSIGNATURE: Daxa Levine DO PATIENT NAME: Guadalupe PérezATE: February 02, 2017 : 9:50 AM PAGER/CONTACT #: [facility] ANES PREOPon 02-01-2017 ANES PREOP HNO ID: [id number] thor: Tony HaneyiuService: AnesthesiologyAuthor Type: AnesthesiologistType: Anesthesia PreOpFiled: 02/01/2017 7:08 AMNote Text: ANESTHESIOLOGY DAY OF SURGERY NOTESERVICE DATE: 02/01/2017SERVICE TIME: 7:07 AMDOB: 1955Procedure(s) (LRB):COMPLETE EPS W/PVI ABLATION (N/A)ADD'L PVI ABLATION (N/A)Surgeon(s):Teagan Correa MDEstimated body mass index is 40.91 kg/(m2) as calculated from thefollowing: Height as of this encounter: 168.9 cm (5' 6.5"). Weight as of this encounter: 116.7 kg (257 lb 4.8 oz).Most recent hematocrit and potassium results:Hematocrit 43.6 10/27/2016Potassium 4.4 10/27/2016ANES DOS/PREOP NOTE:Vitals: [id number]: 137/94Pulse: 92Resp: 18Temp: (!) 35.9 ?C (96.7 ?F)TempSrc: Temporal ArterySpO2: 96%Weight: 116.7 kg (257 lb 4.8 oz)Height: 168.9 cm (5' 6.5")ACTIVE PROBLEM LISTCarcinoma in Situ of Cervix UteriSymptomatic Menopausal Or Female Climacteric StatesPostmenopausal Atrophic VaginitisCystocele, MidlineVaginal Enterocele, Congenital Or AcquiredRectocele, FemaleStool IncontinenceFecal IncontinenceIrritable Bowel Syndrome With DiarrheaVaginal Wall ProlapseChronic Atrial Fibrillation (Hcc)DepressionTransient InsomniaPAST MEDICAL HISTORYDiagnosis Date- Atrial fibrillation (HCC)- Carcinoma in situ of cervix uteri 1976- Diabetes mellitus (HCC)- Fecal incontinence- PMH - PAST MEDICAL HISTORY OF ARTHRITIS BOTH KNEES- PMH - PAST MEDICAL HISTORY OF ATRIAL FIBRILATION- Sleep apnea- Vaginal prolapsePAST SURGICAL [id number]: APPENDECTOMY2-3 yrs ago: COLONOSCOP W/ OR W/O [facility] SPEC Comment: Colonoscopy10/09/07: KNEE SCOPE,DIAGNOSTIC Comment: Arthroscopy, knee right [id number]: LAPAROSCOPIC CHOLEYCYSTECTOMY Comment: Cholecystectomy, lap06/24/2008: PAST SURGICAL HISTORY OF Comment: sara boil on upper left back12/13/11: PAST SURGICAL HISTORY OF Comment: Excisional biopsy left [id number]: REMOVAL OF OVARY/TUBE(S) Comment: Salpingo-oophorectomy [id number]: TOTAL ABDOM HYSTERECTOMY Comment: Hysterectomy, TAHNo date: VAGINAL DELIVERY HX Comment: [id number] HISTORY Diabetes Father Breast Cancer Mother Diabetes Sister Stroke DaughterSocial History:Social HistorySubstance Use Topics- Smoking status: Former Smoker Packs/day: 0.50 Years: 26.00 Types: Cigarettes Quit date: 07/04/1989- Smokeless tobacco: Never Used- Alcohol use Yes Comment: Occasionally- couple times a monthNo current facility-administered medications on file prior to encounter.Current Outpatient Prescriptions on File Prior to Encounter:metoprolol tartrate, short acting, (LOPRESSOR) 25 mg tablet Take 2 tabletsby mouth twice daily.XARELTO 20 mg tablet TAKE ONE TABLET BY MOUTH ONCE DAILY, WITH DINNERmetFORMIN (GLUCOPHAGE) 500 mg tablet Take 1,000 mg by mouth twice dailywith meals.multivitamins(DAILY MULTIVITAMIN TAB) Take one(1) tablet daily.No current facility-administered medications for this encounter.Allergies:ALLER GIESAllergen Reactions- Keflex [Cephalexin] yeast infection- Neosporin [Neomycin* Contraindication-Medical Surgical Pt applied neosporin to cut on leg and made the area very red andinflammedDOS EXAM: Adequate NPO Status: YesAnesthetic Risks, Benefits, Alternatives, Personnel and Consent Discussed:YesPatient agrees to proceed: YesPrevious Anesthesia: No history of adverse eventAirway Assessment: MP 2; Neck ROM: Full ROM without neurologic symptoms;Airway Evaluation: Thick neck and OSASymptoms of Sleep Apnea: yes on CPAPDentition: Dentures: upperAdditional Physical Exam:Lungs: Lungs clear to auscultation. Good diaphragmatic excursion.Cardiac: irregular irregularAdditional Pertinent Findings: N/ABlood Products: Will accept Blood/Blood ProductsAnesthetic Plan: GeneralAnesthetic Monitoring: Standard ASA Monitors and Invasive HemodynamicMonitoring Arterial linePain Management Plan: Parenteral or OralASA Class: 3Other Medical Problems: HTN, AFIB, DM2, YOHAN on CPAP, obesityChronic Beta Vaishali medication administered within 24 hours: No: Did nottake morning dose, will give if OK with Dr Sosa have interviewed and examined the patient. I have reviewed the medicalrecord and/or the pre-anesthesia evaluation, pertinent labs, and testresults.Significant changes in the patient's condition since the History andPhysical, not otherwise documented in primary service progress notes: NoThis contains updated information obtained within 48 hours ofSurgery/Procedure.LATISHA VALADEZ: Tony Lepe MD PATIENT NAME: Guadalupe AlexanderrDATE: February 01, 2017 : 7:07 AM CSN: [id number] Normal [facility] Basic Metabolic Panlon 02-01 Anion gap 12 mmol/L Normal 9-18 [facility] Comment on above: Performed By: #### C BC, BMP ####[facility] [place], [place] [phone] Calcium 9.2 mg/dL Normal 8.5-10.5 [facility] Comment on above: Performed By: #### C BC, BMP ####[address] [phone] Chloride 103 mmol/L Normal 98-110 [facility] Comment on above: Performed By: #### C BC, BMP ####[place] [phone] CO2 27 mmol/L Normal 23-32 [facility] Comment on above: Performed By: #### C BC, BMP ####[place] [phone] Creatinine 0.65 mg/dL Low 0.70-1.40 [facility] Comment on above: Performed By: #### C BC, BMP ####[place] [phone] eGFR (non-black) mL/min/{1.73_m2} Normal >60 [facility] Comment on above: Performed By: #### C BC, BMP ####[place] [phone] Glucose mass conc 118 mg/dL High 65-100 [facility] Comment on above: Performed By: #### C BC, BMP ####[place] [phone] Potassium molar conc 4.5 mmol/L Normal 3.5-5.0 [facility] Comment on above: Performed By: #### C BC, BMP ####[place] [phone] Sodium 142 mmol/L Normal 132-148 [facility] Comment on above: Performed By: #### C BC, BMP ####[place] [phone] Urea nitrogen 15 mg/dL Normal 8-25 [facility] Comment on above: Performed By: #### C BC, BMP ####[place] [phone] CBCon 02-01-2017 Erythrocyte distribution width Auto Ratio (RBC) 13.8 % Normal 11.5-15.0 [facility] Comment on above: Performed By: #### C BC, BMP ####[place] [phone] Erythrocytes (RBC) 4.64 10*6/uL Normal 3.90-5.20 [facility] Comment on above: Performed By: #### C BC, BMP ####[place] [phone] Hematocrit (HCT) 38.8 % Normal 36.0-46.0 [facility] Comment on above: Performed By: #### C BC, BMP ####[place] [phone] Hemoglobin mass conc (Bld) 12.8 g/dL Normal 11.5-15.5 [facility] Comment on above: Performed By: #### C BC, BMP ####[place] [phone] MCH 27.6 pG Normal 26.0-34.0 [facility] Comment on above: Performed By: #### C BC, BMP ####[place] [phone] MCHC mass conc (RBC) 33.0 g/dL Normal 30.5-36.0 [facility] Comment on above: Performed By: #### C BC, BMP ####[place] [phone] MCV 83.6 fL Normal 80.0-100.0 [facility] Comment on above: Performed By: #### C BC, BMP ####[place] [phone] Platelet mean volume (PMV) 10.6 fL Normal 9.0-12.7 [facility] Comment on above: Performed By: #### C BC, BMP ####[place] [phone] Platelets 254 10*3/uL Normal 150-400 [facility] Comment on above: Performed By: #### C BC, BMP ####[place] [phone] WBC (Leukocytes) 7.58 10*3/uL Normal 3.70-11.00 [facility] Comment on above: Performed By: #### C BC, BMP ####[place] [address] [place], [place] [phone] Confirm Blood Typeon 017 ABO/RH(D) Negative Normal [facility] Comment on above: Performed By: #### C ONABO ####[facility] [place], [place] [phone] Glucose POCT (East, West, [place] A Use Only)on 02-01-2017 Glucose mass conc 155 mg/dL High 65-100 [facility] Comment on above: Performed By: #### G LUPOC ####[facility] [place], [place] [phone] Glucose mass conc 112 mg/dL High 65-100 [facility] Comment on above: Performed By: #### G LUPOC ####[facility] [place], [place] [phone] HISTORY PHYSICALon HISTORY PHYSICAL HNO ID: [id number] thor: Isidro (Res) LoreleiService: Cardiovascular MedicineAuthor Type: ResidentType: HANDPFiled: 02/01/2017 4:18 PMNote Text:INTERNAL MEDICINE HANDP EXAMINATIONSERVICE DATE: 02/01/2017SERVICE TIME: 4:12 PMPR[facility]IAN: ADALBERTO Urbina COMPLAINT: Persistent Afib for elective PVI.HISTORY OF PRESENT ILLNESS: Ms. Davis is a 61 year old female w/ hx ofDM II on metformin, YOHAN on CPAP, persistent afib, who presents forelective PVI. Per Dr. Baum's note, pt has been diagnosed with PAF forapproximately 19 years, and became persistent in 09/2015. Pt was treatedwith soltalol, amiodarone, and flecainide in the past and had undergone 2DC cardioversions with early recurrence of AF (within 48), due topersistent afib causing increased fatigue, pt has decided to go for PVI.Denies any chest pain, SOB, nausea, vomiting or diarrhea. Nolightheadedness or syncope episodes.PAST MEDICAL HISTORYDiagnosis Date- Atrial fibrillation (HCC)- Carcinoma in situ of cervix uteri 1976- Diabetes mellitus (HCC)- Fecal incontinence- PMH - PAST MEDICAL HISTORY OF ARTHRITIS BOTH KNEES- PMH - PAST MEDICAL HISTORY OF ATRIAL FIBRILATION- Sleep apnea- Vaginal prolapsePAST SURGICAL [id number]: APPENDECTOMY2-3 yrs ago: COLONOSCOP W/ OR W/O [facility] SPEC Comment: Colonoscopy10/09/07: KNEE SCOPE,DIAGNOSTIC Comment: Arthroscopy, knee right [id number]: LAPAROSCOPIC CHOLEYCYSTECTOMY Comment: Cholecystectomy, lap06/24/2008: PAST SURGICAL HISTORY OF Comment: sara boil on upper left back12/13/11: PAST SURGICAL HISTORY OF Comment: Excisional biopsy left [id number]: REMOVAL OF OVARY/TUBE(S) Comment: Salpingo-oophorectomy [id number]: TOTAL ABDOM HYSTERECTOMY Comment: Hysterectomy, TAHNo date: VAGINAL DELIVERY HX Comment: [id number] HISTORY Diabetes Father Breast Cancer Mother Diabetes Sister Stroke DaughterSocial HistorySubstance Use Topics- Smoking status: Former Smoker Packs/day: 0.50 Years: 26.00 Types: Cigarettes Quit date: 07/04/1989- Smokeless tobacco: Never Used- Alcohol use Yes Comment: Occasionally- couple times a monthMEDICATIONS:Prescrip tions Prior to Admission:metoprolol tartrate, short acting, (LOPRESSOR) 25 mg tablet Take 2 tabletsby mouth twice daily. Disp: Rfl: 0 01/31/2017 at Unknown timeXARELTO 20 mg tablet TAKE ONE TABLET BY MOUTH ONCE DAILY, WITH DINNERDisp: 30 tablet Rfl: 11 01/31/2017 at 0800metFORMIN (GLUCOPHAGE) 500 mg tablet Take 1,000 mg by mouth twice dailywith meals. Disp: Rfl: 01/31/2017 at Unknown timemultivitamins(DAILY MULTIVITAMIN TAB) Take one(1) tablet daily. Disp:Rfl: 0 01/31/2017 at Unknown timeALLERGIESAllergen Reactions- Keflex [Cephalexin] yeast infection- Neosporin [Neomycin* Contraindication-Medical Surgical Pt applied neosporin to cut on leg and made the area very red andinflammedCOMPLETE REVIEW OF SYSTEMS:PAIN ASSESSMENT: Negative for pain, history of chronic pain, or currenttreatment for a chronic pain condition.GENERAL: No weight loss, malaise or fevers. + fatigue.RESPIRATORY: Negative for cough, hemoptysis, wheezing, COPD, dyspnea orshortness of breathCARDIOVASCULAR: Negative for chest pain, leg swelling, hypertension, CHFor palpitationsGI: No nausea, vomiting, or diarrheaMUSCULOSKELETAL: Negative for joint pain or swelling, back pain or musclepainOBJECTIVEPHYSIC AL EXAM:Patient Vitals for the past 24 hrs: BP Temp Temp src Pulse Resp SpO2 Height Yxgpjm01/01/17 1500 114/65 - - 73 21 98 % - -02/01/17 1445 115/69 - - 79 17 100 % - -02/01/17 1430 118/66 36 ?C (96.8 ?F) Oral 74 20 100 % - -02/01/17 0636 137/94 (!) 35.9 ?C (96.7 ?F) Temporal Art 92 18 96 % 168.9cm (5' 6.5") 116.7 kg (257 lb 4.8 oz)Body mass index is 40.91 kg/(m2).GENERAL: Alert, no distress, cooperativeSKIN: Skin color, texture, turgor normal. No rashes or lesions.NECK: No jugulovenous distentionLUNGS: Lungs clear to auscultation. Good diaphragmatic excursion.CARDIAC: normal S1 and S2; no rubs, murmurs, or gallopsABDOMEN: Abdomen soft, non-tender, BS normal, No masses or organomegalyEXTREMETIES: Extremities normal, no deformities, edema, clubbing or skindiscoloration. Good capillary refill., No ulcersNEURO: Alert, oriented X 3PULSES: 2+ radial, 2+ carotidDATA:Diagnostic tests reviewed for today's visit:Most recent labs and imaging results.Most recent labsMost recent imagingMost recent EKGASSESSMENT/PLANActive Problems: A-fib (HCC) POA: Yes-hx of P-afib for 19 years-treated with sotalol, amio, flecainide in the past and 2 DCcardioversions with early recurrence-EKG on admission showed afib with controlled rate-on xarelto at home for AC-s/p PVI today, HR in the 60s with sinus rhythm on tele.Plan-resume xarelto-monitor for hematoma at incision site.-pain control PRN DM II-on metformin at home, continue with SSIdvt prophylaxis - not needed, on xareltoSIGNATURE: Isidro Teran MD PATIENT NAME: Guadalupe AlexanderrDATE: February 01, 2017 : 4:12 PM PAGER/CONTACT #: [phone] [facility] NURSING PROGon 02-01-2017 NURSING PROG HNO ID: [id number] thor: Maribeth (Rn) Pia Barraganice: NursingAuthor Type: Registered NurseType: Nursing Progress NoteFiled: 02/01/2017 2:50 PMNote Text: Nursing Progress NotePatient Name: Guadalupe WolfeRN: [id number] Location: [place] [address]/[place] [address]* Daily Note:1435: Pt denies pain; states she is tired and stiff. Per verbalfrom Lenora, per Dr Baum, ACT is 252 and ok to pull sheaths. Appears NSRon tele; changed from SFM to NC 2L - sat 100%. Awaiting orders to beverified/acknowledged by pharmacy.This note was completed by: Maribeth Barragan RN [facility] NURSING PROG HNO ID: [id number] thor: Maribeth (Rn) Pia Barraganice: NursingAuthor Type: Registered NurseType: Nursing Progress NoteFiled: 02/01/2017 2:47 PMNote Text: Nursing Progress NotePatient Name: Guadalupe RandallN: [id number] Location: [place] [address]/[facility]* Transfe r Note:Patient transferred into room/unit 244 in stable condition. Actionstaken: S/P PVI (Ablation); sheaths intact; patient on SFM; L Radial ART inplaceThis note was completed by: Maribeth Barragan RN Normal [facility] Type and Screenon 02-01-2017 ABO/RH(D) Negative [facility] Comment on above: Performed By: #### T SCR ####[place] [address] Antibody Screen Negative [facility] Comment on above: Performed By: #### T SCR ####[address] Urinalysison 02-01-2017 Bilirubin, Urine Negative Normal Negative [facility] Comment on above: Performed By: #### U A ####[place] [address] Comments SEE COMMENT [facility] Comment on above: Result Comment: Micr oscopic not warranted Performed By: #### U A ####[place] [address] Hemoglobin mass conc (Bld) Negative Normal [facility] Comment on above: Performed By: #### U A ####[place] [address] Leukest Negative Normal [facility] Comment on above: Performed By: #### U A ####[place] [id number] pH of blood 6.0 [pH] Normal 5.0-8.0 [facility] Comment on above: Performed By: #### U A ####[address] Protein, Urine Negative Normal Negative [facility] Comment on above: Performed By: #### U A ####[address] Specific Salome, Ur <1.005 Low 1.005-1 .03 0 [facility] Comment on above: Result Comment: Resu lt checked and verified Performed By: #### U A ####[place] [phone] Urine, clarity Clear Normal Clear [facility] Comment on above: Performed By: #### U A ####[place] [id number] Urine, color Straw Critically abnormal Yellow [facility] Comment on above: Performed By: #### U A ####[place] [address] Urine, glucose presence Negative Normal Negative [facility] Comment on above: Performed By: #### U A ####[place] [address] Urine, ketones presence Negative Normal Negative [facility] Comment on above: Performed By: #### U A ####[place] [address] Urine, nitrite presence Negative Normal Negative [facility] Comment on above: Performed By: #### U A ####[place] [address] Urine, urobilinogen <2.0 Normal <2.0 [facility] Comment on above: Performed By: #### U A ####[place] [address] HOSPon 01-11-2017 HOSP Patient:David Davis da GMRN: Height:5' 6.496"(1.689 m)Weight:257 lb 4.8 oz (116.711 kg)Outpatient Medications as of 02/01/17:metoprolol tartrate, short acting, (LOPRESSOR) 25 mg tabletXARELTO 20 mg tabletmetFORMIN (GLUCOPHAGE) 500 mg tabletmultivitamins(DAILY MULTIVITAMIN TAB)Admission/Clinic Administered Medications as of 02/01/17:Patient has no admission medications.Problem List:Carcinoma in situ of cervix uteri [D06.9]Symptomatic menopausal or female climacteric states [N95.1]Postmenopausal atrophic vaginitis [N95.2]Cystocele, midline [N81.11]Vaginal enterocele, congenital or acquired [N81.5]Rectocele, female [N81.6]Stool incontinence [R15.9]Fecal incontinence [R15.9]Irritable bowel syndrome with diarrhea [K58.0]Vaginal wall prolapse [N81.10]Chronic atrial fibrillation (HCC) [I48.2]Depression [F32.9]Transient insomnia [F51.02]Allergies:Keflex [Cephalexin]Neosporin [Ofbqfmgl-Dezjsbfvxp-Omex myxin]Date Verified: 02/01/17Lab ValuesLab Value Units Date High LowPOTA* 4.5 mmol/L 02/01/2017 5.0 3.5HEMA* 38.8 % 02/01/2017 46.0 36.0Progress Notes (CARD [facility] REJ):Jessa Reza Psr 01/29/2017 11:46 AM SignedPatient submits a Metavanat message, noting:"I have a question. I'm really starting to get anxious and nervous about this.I don't take any prescriptions for anxiety, but I just bought a homeopathicmedicine called [place], by Cecelia for Stress Relief. It's non-drowsy,non-habit forming, no drug interactions, works naturally with your body forfatique, irritability, NERVOUSNESS, hypersensitivity. Would it be okay to takethese (2) on my way to the hospital?Thank you and have a good evening.Guadalpue"Patient's ablation is 02/01/2017, please contact Dr. Baum/GENEVA forrecommendations.Willis Nascimento LPN 01/31/2017 9:41 AM SignedPlease Pool Mccarthy CNP 01/31/2017 11:08 AM SignedWould not take any other OTC's with Xarelto due to possible interaction.Would discuss with pcp regarding anxiety.FYI to Dr. Baum if she recommends taking this.Thanks.Chel Carpenter, RN, RN 01/31/2017 5:47 PM SignedUnable to reach patient.General message to call office to discuss below left on answering machine- didnot leave detailed message as answering machine did not have identifiable name.Patient's procedure is tomorrow.Please advise of below if patient returns call.Chel Carpenter, RN, RN 01/31/2017 5:53 PM AddendumLeft a more specific message for patient as noted procedure is tomorrow.Advised of GENEVA Mccarthy's message not to take any OTC with Xarelto due to possibleinteraction.Forwa rding to Dr. Baum to advise/send Dr. Baum text page.Previous Version Normal [facility] Vital Signs Date Time Vital Sign Value Performing Clinician Facility 04-24-2025 11:22-0400 Body height 167.[address] Rian Romero MD Work Phone: 8(524)965-857076 [place] [address] 04-24-2025 11:22-0400 Body mass index (BMI) [Ratio] 36.1 kg/m2 Dr. Rian Romero MD Work Phone: 1(580)280-024576 [place] [address] 04-24-2025 11:22-0400 Body weight 101.[address] Rian Romero MD Work Phone: 5(539)494-068676 [place] [address] 04-24-2025 11:22-0400 Diastolic blood pressure 72 mm[Hg] Dr. Rian Romero MD Work Phone: 0(973)659-670376 [place] [address] 04-24-2025 11:22-0400 Heart rate 80 /min Dr. Rian Romero MD Work Phone: 7(266)536-821676 [place] [address] 04-24-2025 11:22-0400 Respiratory rate 18 /min Dr. Rian Romero MD Work Phone: 6(304)024-257776 [place] [address] 04-24-2025 11:22-0400 SaO2% (BldA) [Mass fraction] 98 % Dr. Rian Romero MD Work Phone: 3(953)245-849876 [place] [address] 04-24-2025 11:22-0400 Systolic blood pressure 109 mm[Hg] Dr. Rian Romero MD Work Phone: 1(183)612-518276 [place] [address] 04-10-2025 08:16-0400 Body mass index (BMI) [Ratio] 36.1 kg/m2 Dr. Rian Romero MD Work Phone: 9(024)493-465676 [place] [address] 04-10-2025 08:16-0400 Body weight 101.[address] Rian Romero MD Work Phone: [facility] 04-10-2025 08:16-0400 Diastolic blood pressure 89 mm[Hg] Dr. Rian Romero MD Work Phone: 5(716)174-985253 [place] [address] 04-10-2025 08:16-0400 Heart rate 92 /min Dr. Rian Romero MD Work Phone: 6(967)989-930776 [place] [address] 04-10-2025 08:16-0400 Respiratory rate 20 /min Dr. Rian Romero MD Work Phone: 7(452)565-498376 [place] [address] 04-10-2025 08:16-0400 SaO2% (BldA) [Mass fraction] 96 % Dr. Rian Romero MD Work Phone: 1(773)062-623176 [place] [address] 04-10-2025 08:16-0400 Systolic blood pressure 129 mm[Hg] Dr. Rian Romero MD Work Phone: 1(263)292-706676 [place] [address] 09-17-2024 13:10-0400 Body temperature 99.3 [degF] Dr. Rian Romero MD Work Phone: 2(100)209-987576 [place] [address] 09-17-2024 13:10-0400 Diastolic blood pressure 75 mm[Hg] Dr. Rian Romero MD Work Phone: 3(017)147-180776 [place] [address] 09-17-2024 13:10-0400 Heart rate 87 /min Dr. Rian Romero MD Work Phone: 9(371)378-945676 [place] [address] 09-17-2024 13:10-0400 Respiratory rate 16 /min Dr. Rian Romero MD Work Phone: 7(814)035-139976 [place] [address] 09-17-2024 13:10-0400 SaO2% (BldA) [Mass fraction] 97 % Dr. Rian Romero MD Work Phone: 8(784)214-874476 [place] [address] 09-17-2024 13:10-0400 Systolic blood pressure 131 mm[Hg] Dr. Rian Romero MD Work Phone: 7(129)611-144276 [place] [address] 09-17-2024 12:17-0400 Body height 167.[address] Rian Romero MD Work Phone: [facility] 09-17-2024 12:17-0400 Body mass index (BMI) [Ratio] 47.5 kg/m2 Dr. Rian Romero MD Work Phone: 0(269)249-936453 [place] [address] 09-17-2024 12:17-0400 Body weight 133.[address] Rian Romero MD Work Phone: 9(281)641-125076 [place] [address] 08-16-2024 14:56-0500 Body mass index (BMI) [Ratio] 48.9 kg/m2 Dr. Rian Romero MD Work Phone: 6(981)323-693176 [place] [address] 08-16-2024 14:56-0500 Body weight 137.[address] Rian Romero MD Work Phone: 4(197)617-763576 [place] [address] 08-16-2024 14:56-0500 Diastolic blood pressure 78 mm[Hg] Dr. Rian Romero MD Work Phone: 3(465)426-318576 [place] [address] 08-16-2024 14:56-0500 Heart rate 66 /min Dr. Rian Romero MD Work Phone: 2(563)016-610276 [place] [address] 08-16-2024 14:56-0500 Respiratory rate 18 /min Dr. Rian Romero MD Work Phone: 3(177)615-138576 [place] [address] 08-16-2024 14:56-0500 SaO2% (BldA) [Mass fraction] 96 % Dr. Rian Romero MD Work Phone: 4(481)957-199753 [place] [address] 08-16-2024 14:56-0500 Systolic blood pressure 116 mm[Hg] Dr. Rian Romero MD Work Phone: 1(839)760-712153 [place] [address] 07-25-2024 14:10-0500 Body temperature 97.8 [degF] Dr. Rian Romero MD Work Phone: 8(656)365-053992 [address] 07-25-2024 14:10-0500 Diastolic blood pressure 78 mm[Hg] Dr. Rian Romero MD Work Phone: 3(963)902-802053 [place] [address] 07-25-2024 14:10-0500 Heart rate 66 /min Dr. Rian Romero MD Work Phone: [facility] 07-25-2024 14:10-0500 Respiratory rate 18 /min Dr. Rian Romero MD Work Phone: [facility] 07-25-2024 14:10-0500 SaO2% (BldA) [Mass fraction] 95 % Dr. Rian Romero MD Work Phone: [facility] 07-25-2024 14:10-0500 Systolic blood pressure 138 mm[Hg] Dr. Rian Romero MD Work Phone: [facility] 07-06-2023 14:03-0500 Blood Pressure Cuff Size DR ABHI AMIN MD [facility] 07-06-2023 14:03-[address] ABHI AMIN MD [facility] 07-06-2023 14:03-[address] ABHI Polanco [facility] 07-06-2023 14:03-0500 Body height 167.[address] ABHI AMIN MD [facility] 07-06-2023 14:03-0500 Body weight [address] ABHI AMIN MD [facility] 07-06-2023 14:03-0500 Body weight 44.5 kg/m2 DR ABHI AMIN MD [facility] 07-06-2023 14:03-0500 Diastolic Blood Pressure Non-Invasive 60 mm[Hg] DR ABHI AMIN MD [facility] 07-06-2023 14:03-0500 Heart rate 63 /min DR ABHI AMIN MD [facility] 07-06-2023 14:03-0500 Systolic Blood Pressure Non-Invasive 124 mm[Hg] DR ABHI AMIN MD [facility] 06-22-2023 21:52-0500 Blood Pressure Cuff Size JAMES ADAMES MD [facility] 06-22-2023 21:52-0500 Blood Pressure Location JAMES ADAMES MD [facility] 06-22-2023 21:52-0500 Blood Pressure Method JAMES ADAMES MD [facility] 06-22-2023 21:52-0500 Body height 167.6 cm JAMES ADAMES MD [facility] 06-22-2023 21:52-0500 Body temperature 97.88 [degF] JAMES ADAMES MD [facility] 06-22-2023 21:52-0500 Body weight 123 kg JAMES ADAMES MD [facility] 06-22-2023 21:52-0500 Diastolic Blood Pressure Non-Invasive 77 mm[Hg] JAMES ADAMES MD [facility] 06-22-2023 21:52-0500 Heart rate 69 /min AJMES ADAMES MD [facility] 06-22-2023 21:52-0500 Respiratory rate 18 /min JAMES ADAMES MD [facility] 06-22-2023 21:52-0500 Systolic Blood Pressure Non-Invasive 128 mm[Hg] JAMES ADAMES MD [facility] 02-16-2023 15:05-0400 Body temperature 98.06 [degF] DR ABHI AMIN MD [facility] 02-16-2023 15:05-0400 Diastolic Blood Pressure Non-Invasive [address] ABHI AMIN MD [facility] 02-16-2023 15:05-0400 Heart rate 60 /min DR ABHI AMIN MD [facility] 02-16-2023 15:05-0400 Reason For Taking VItal Signs DR ABHI AMIN MD [facility] 02-16-2023 15:05-0400 Respiratory rate 16 /min DR ABHI AMIN MD [facility] 02-16-2023 15:05-0400 Systolic Blood Pressure Non-Invasive [address] ABHI AMIN MD [facility] 02-16-2023 11:30-0400 Body temperature 98.06 [degF] DR ABHI AMIN MD [facility] 02-16-2023 11:30-0400 Diastolic Blood Pressure Non-Invasive [address] ABHI AMIN MD [facility] 02-16-2023 11:30-0400 Heart rate 60 /min DR ABHI AMIN MD [facility] 02-16-2023 11:30-0400 Respiratory rate 18 /min DR ABHI AMIN MD [facility] 02-16-2023 11:30-0400 Systolic Blood Pressure Non-Invasive [address] ABHI AMIN MD [facility] 02-16-2023 08:25-0400 Heart rate 67 /min DR ABHI AMIN MD [facility] 02-16-2023 07:57-0400 Body temperature 97.7 [degF] DR ABHI AMIN MD [facility] 02-16-2023 07:57-0400 Diastolic Blood Pressure Non-Invasive [address] ABHI AMIN MD [facility] 02-16-2023 07:57-0400 Heart rate 67 /min DR ABHI AMIN MD [facility] 02-16-2023 07:57-0400 Respiratory rate 18 /min DR ABHI AMIN MD [facility] 02-16-2023 07:57-0400 Systolic Blood Pressure Non-Invasive [address] ABHI AMIN MD [facility] 02-15-2023 23:12-0400 Heart rate 60 /min DR ABHI AMIN MD [facility] 02-15-2023 19:49-0400 Heart rate 67 /min DR ABHI AMIN MD [facility] 02-15-2023 15:18-0400 Heart rate 71 /min DR ABHI AMIN MD [facility] 02-15-2023 11:12-0400 Body height [address] ABHI AMIN MD [facility] 02-15-2023 11:12-0400 Body weight 121.[address] ABHI AMIN MD [facility] 02-15-2023 11:12-0400 Body weight 43.15 kg/m2 DR ABHI AMIN MD [facility] 02-15-2023 09:45-0400 Body temperature 96.8 [degF] DR ABHI AMIN MD [facility] 02-15-2023 09:40-0400 Respiratory Rate - Anes 0 br/min DR ABHI AMIN MD [facility] 02-15-2023 09:35-0400 Respiratory Rate - Anes 11 br/min DR ABHI AMIN MD [facility] 02-15-2023 09:30-0400 Body temperature 96.8 [degF] DR ABHI AMIN MD [facility] 02-15-2023 09:30-0400 Respiratory Rate - Anes 11 br/min DR ABHI AMIN MD [facility] 02-15-2023 09:15-0400 Body temperature 96.8 [degF] DR ABHI AMIN MD [facility] 02-15-2023 07:53-0400 Body weight 43.15 kg/m2 DR ABHI AMIN MD [facility] 02-15-2023 06:52-0400 Body height [address] ABHI AMIN MD [facility] 02-15-2023 06:52-0400 Body temperature 97.16 [degF] DR ABHI AMIN MD [facility] 02-15-2023 06:52-0400 Body weight 121.[address] ABHI AMIN MD [facility] 02-15-2023 06:52-0400 Heart rate 71 /min DR ABHI AMIN MD [facility] 01-17-2023 11:00-[address] ABHI AMIN MD [facility] 01-17-2023 11:00-[address] ABHI Polanco [facility] 01-17-2023 11:00-0400 Body height [address] ABHI AMIN MD [facility] 01-17-2023 11:00-0400 Body weight 122.[address] ABHI AMIN MD [facility] 01-17-2023 11:00-0400 Body weight 43.33 kg/m2 DR ABHI AMIN MD [facility] 01-17-2023 11:00-0400 Diastolic Blood Pressure Non-Invasive [address] ABHI AMIN MD [facility] 01-17-2023 11:00-0400 Heart rate 60 /min DR ABHI AMIN MD [facility] 01-17-2023 11:00-0400 Respiratory rate 18 /min DR ABHI AMIN MD [facility] 01-17-2023 11:00-0400 Systolic Blood Pressure Non-Invasive [address] ABHI AMIN MD [facility] 12-22-2022 13:41-0400 Body height 167.[address] ABHI AMIN MD [facility] 12-22-2022 13:41-0400 Body weight [address] ABHI AMIN MD [facility] 12-22-2022 13:41-0400 Body weight 44.14 kg/m2 DR ABHI AMIN MD [facility] 12-03-2022 11:27-0400 Body height 167.[address] ABHI AMIN MD [facility] 12-03-2022 11:27-0400 Body weight [address] ABHI AMIN MD [facility] 12-03-2022 11:27-0400 Body weight 44.5 kg/m2 DR ABHI AMIN MD [facility] 09-20-2022 15:15-0400 Body height 167.[address] Rian Romero Work Phone: [facility] 09-20-2022 15:15-0400 Body mass index (BMI) [Ratio] 44.5 kg/m2 Dr. Rian Romero Work Phone: [facility] 09-20-2022 15:15-0400 Body weight 125.[address] Rian Romero Work Phone: [facility] 09-20-2022 15:15-0400 Diastolic blood pressure 76 mm[Hg] Dr. Rian Romero Work Phone: [facility] 09-20-2022 15:15-0400 Heart rate 60 /min Dr. Rian Romero Work Phone: [facility] 09-20-2022 15:15-0400 Respiratory rate 18 /min Dr. Rian Romero Work Phone: [facility] 09-20-2022 15:15-0400 SaO2% (BldA) [Mass fraction] 96 % Dr. Rian Romero Work Phone: [facility] 09-20-2022 15:15-0400 Systolic blood pressure 126 mm[Hg] Dr. Rian Romero Work Phone: [facility] 09-08-2022 14:11-0500 Reason For Taking VItal Signs DR RIAN CHONG MD [address] [place] [address] 09-08-2022 11:59-0500 Heart rate 69 /min DR RIAN CHONG MD [address] [place] [address] 09-08-2022 11:59-0500 Reason For Taking VItal Signs DR RIAN CHONG MD [address] [place] [address] 09-08-2022 10:55-0500 Body temperature 97.88 [degF] DR RIAN CHONG MD [address] [place] [address] 09-08-2022 10:55-0500 Diastolic Blood Pressure Non-Invasive [address] RIAN CHONG MD [address] [place] [address] 09-08-2022 10:55-0500 Heart rate 69 /min DR RIAN CHONG MD [address] [place] [address] 09-08-2022 10:55-0500 Respiratory rate 18 /min DR RIAN CHONG MD [address] [place] [address] 09-08-2022 10:55-0500 Systolic Blood Pressure Non-Invasive [address] RIAN CHONG MD [address] [place] [address] 09-08-2022 08:53-0500 Heart rate 74 /min DR RIAN CHONG MD [address] [place] [address] 09-08-2022 06:42-0500 Body temperature 97.7 [degF] DR RIAN CHONG MD [address] [place] [address] 09-08-2022 06:42-0500 Diastolic Blood Pressure Non-Invasive [address] RIAN CHONG MD [address] [place] [address] 09-08-2022 06:42-0500 Heart rate 93 /min DR RIAN CHONG MD [address] [place] [address] 09-08-2022 06:42-0500 Mean blood pressure 64 mm[Hg] DR RIAN CHONG MD [address] [place] [address] 09-08-2022 06:42-0500 Respiratory rate 18 /min DR RIAN CHONG MD [address] [place] [address] 09-08-2022 06:42-0500 Systolic Blood Pressure Non-Invasive [address] RIAN CHONG MD [address] [place] [address] 09-08-2022 05:02-0500 Reason For Taking VItal Signs DR RIAN CHONG MD [address] [place] [address] 09-07-2022 23:00-0500 Body temperature 97.52 [degF] DR RIAN CHONG MD [address] [place] [address] 09-07-2022 23:00-0500 Diastolic Blood Pressure Non-Invasive [address] RIAN CHONG MD [address] [place] [address] 09-07-2022 23:00-0500 Respiratory rate 20 /min DR RIAN CHONG MD [address] [place] [address] 09-07-2022 23:00-0500 Systolic Blood Pressure Non-Invasive [address] RIAN CHONG MD [address] [place] [address] 09-07-2022 19:10-0500 Mean blood pressure 100 mm[Hg] DR RIAN CHONG MD [address] [place] [address] 09-07-2022 18:10-0500 Mean blood pressure 91 mm[Hg] DR RIAN CHONG MD [address] [place] [address] 09-07-2022 14:00-0500 Respiratory Rate - Anes 7 br/min DR RIAN CHONG MD [address] [place] [address] 09-07-2022 13:55-0500 Respiratory Rate - Anes 16 br/min DR RIAN CHONG MD [address] [place] [address] 09-07-2022 13:50-0500 Body temperature 96.33 [degF] DR RIAN CHONG MD [address] [place] [address] 09-07-2022 13:50-0500 Respiratory Rate - Anes 20 br/min DR RIAN CHONG MD [address] 09-07-2022 13:45-0500 Body temperature 96.37 [degF] DR RIAN CHONG MD [address] 09-07-2022 13:40-0500 Body temperature 96.37 [degF] DR RIAN CHONG MD [address] [place] [address] 09-06-2022 22:50-0500 Blood Pressure Cuff Size DR RIAN CHONG MD [address] [place] [address] 09-06-2022 22:50-[address] RIAN CHONG MD [address] [place] [address] 09-06-2022 22:50-[address] RIAN CHONG MD [address] [place] [address] 09-06-2022 18:47-0500 Blood Pressure Cuff Size DR RIAN CHONG MD [address] [place] [address] 09-06-2022 18:47-[address] RIAN CHONG MD [address] [place] [address] 09-06-2022 18:47-[address] RIAN CHONG MD [address] [place] [address] 09-06-2022 14:30-0500 Blood Pressure Cuff Size DR RIAN CHONG MD [address] [place] [address] 09-06-2022 14:30-[address] RIAN CHONG MD [address] 09-06-2022 14:30-[address] RIAN CHONG MD [address] [place] [address] 09-06-2022 03:17-0500 SaO2% (BldA) [Mass fraction] 93.8 % DR RIAN CHONG MD [facility] 03-05-2023 23:39-0500 Body height 167.[address] RIAN CHONG MD [facility] 09-05-2022 23:39-0500 Body weight [address] RIAN CHONG MD [facility] 09-05-2022 23:39-0500 Body weight 44.5 kg/m2 DR RIAN CHONG MD [facility] 09-05-2022 21:45-0500 Diastolic Blood Pressure Non-Invasive [address] CANDICE MCCOY MD [facility] 09-05-2022 21:45-0500 Heart rate 67 /min DR CANDICE MCCOY MD [facility] 09-05-2022 21:45-0500 Respiratory rate 20 /min DR CANDICE MCCOY MD [facility] 09-05-2022 21:45-0500 Systolic Blood Pressure Non-Invasive [address] CANDICE MCCOY MD [facility] 09-05-2022 21:30-0500 Diastolic Blood Pressure Non-Invasive [address] CANDICE MCCOY MD [facility] 09-05-2022 21:30-0500 Heart rate 66 /min DR CANDICE MCCOY MD [facility] 09-05-2022 21:30-0500 Respiratory rate 19 /min DR CANDICE MCCOY MD [facility] 09-05-2022 21:30-0500 Systolic Blood Pressure Non-Invasive [address] CANDICE MCCOY MD [facility] 09-05-2022 21:15-0500 Diastolic Blood Pressure Non-Invasive [address] CANDICE MCCOY MD [facility] 09-05-2022 21:15-0500 Heart rate 66 /min DR CANDICE MCCOY MD [facility] 09-05-2022 21:15-0500 Respiratory rate 20 /min DR CANDICE MCCOY MD [facility] 09-05-2022 21:15-0500 Systolic Blood Pressure Non-Invasive [address] CANDICE MCCOY MD [facility] 09-05-2022 20:16-0500 Body temperature 97.88 [degF] DR CANDICE MCCOY MD [facility] 08-06-2022 00:23-0500 Body temperature 98.24 [degF] MARLY DE LUNA MD [facility] 08-06-2022 00:23-0500 Diastolic Blood Pressure Non-Invasive 41 1 MARLY DE LUNA MD [facility] 08-06-2022 00:23-0500 Heart rate 58 /min MARLY DE LUNA MD [facility] 08-06-2022 00:23-0500 Respiratory rate 20 /min MARLY DE LUNA MD [facility] 08-06-2022 00:23-0500 Systolic Blood Pressure Non-Invasive 129 1 MARLY DE LUNA MD [facility] 08-05-2022 22:57-0500 Diastolic Blood Pressure Non-Invasive 65 1 MARLY DE LUNA MD [facility] 08-05-2022 22:57-0500 Heart rate 64 /min MARLY DE LUNA MD [facility] 08-05-2022 22:57-0500 Respiratory rate 20 /min MARLY DE LUNA MD [facility] 08-05-2022 22:57-0500 Systolic Blood Pressure Non-Invasive 138 1 MARLY DE LUNA MD [facility] 08-05-2022 22:27-0500 Diastolic Blood Pressure Non-Invasive 57 1 MARLY DE LUNA MD [facility] 08-05-2022 22:27-0500 Heart rate 70 /min MARLY DE LUNA MD [facility] 08-05-2022 22:27-0500 Respiratory rate 20 /min MARLY DE LUNA MD [facility] 08-05-2022 22:27-0500 Systolic Blood Pressure Non-Invasive 121 1 MARLY DE LUNA MD [facility] 08-05-2022 21:19-0500 Body temperature 98.06 [degF] MARLY DE LUNA MD [facility] 08-05-2022 21:19-0500 Body weight 127.4 kg MRALY DE LUNA MD [facility] 05-25-2022 14:22-0500 Body height 167.[address] Rian Romero Work Phone: [facility] 05-25-2022 14:22-0500 Body mass index (BMI) [Ratio] 45 kg/m2 Dr. Rian Romero Work Phone: [facility] 05-25-2022 14:22-0500 Body weight 126.[address] Rian Romero Work Phone: [facility] 05-25-2022 14:22-0500 Diastolic blood pressure 74 mm[Hg] Dr. Rian Romero Work Phone: [facility] 05-25-2022 14:22-0500 Heart rate 60 /min Dr. Rian Romero Work Phone: [facility] 05-25-2022 14:22-0500 Respiratory rate 16 /min Dr. Rian Romero Work Phone: [facility] 05-25-2022 14:22-0500 SaO2% (BldA) [Mass fraction] 96 % Dr. Rian Romero Work Phone: [facility] 05-25-2022 14:22-0500 Systolic blood pressure 129 mm[Hg] Dr. Rian Romero Work Phone: [facility] 04-16-2022 19:16-0400 Body temperature 98.2 [degF] [facility] Work Phone: 04-16-2022 19:16-0400 Diastolic blood pressure 77 mm[Hg] [facility] Work Phone: 04-16-2022 19:16-0400 Heart rate 89 /min [facility] Work Phone: 04-16-2022 19:16-0400 Respiratory rate 22 /min [facility] Work Phone: 04-16-2022 19:16-0400 SaO2% (BldA) [Mass fraction] 92 % [facility] Work Phone: 04-16-2022 19:16-0400 Systolic blood pressure 123 mm[Hg] [facility] Work Phone: 04-16-2022 16:06-0400 Body height 167.64 cm [facility] Work Phone: 04-16-2022 16:06-0400 Body mass index (BMI) [Ratio] 45.7 kg/m2 [facility] Work Phone: 04-16-2022 16:06-0400 Body weight 128.6 kg [facility] Work Phone: 12-09-2021 13:58-0400 Body height 167.[address] Rian Romero Work Phone: [facility] Work Phone: 12-09-2021 13:58-0400 Body mass index (BMI) [Ratio] 46.6 kg/m2 Dr. Rian Romero Work Phone: [facility] Work Phone: 12-09-2021 13:58-0400 Body weight 131.[address] Rian Romero Work Phone: [facility] Work Phone: 12-09-2021 13:58-0400 Diastolic blood pressure 77 mm[Hg] Dr. Rian Romero Work Phone: [facility] Work Phone: 12-09-2021 13:58-0400 Heart rate 101 /min Dr. Rian Romero Work Phone: [facility] Work Phone: 12-09-2021 13:58-0400 Respiratory rate 18 /min Dr. Rian Romero Work Phone: [facility] Work Phone: 12-09-2021 13:58-0400 SaO2% (BldA) [Mass fraction] 96 % Dr. Rian Romero Work Phone: [facility] Work Phone: 12-09-2021 13:58-0400 Systolic blood pressure 123 mm[Hg] Dr. Rian Romero Work Phone: [facility] Work Phone: 08-20-2021 12:58-0500 Body height 167.[address] Rian Romero Work Phone: [facility] Work Phone: 08-20-2021 12:58-0500 Body weight 128.[address] Rian Romero Work Phone: [facility] Work Phone: 08-20-2021 12:58-0500 Diastolic blood pressure 52 mm[Hg] Dr. Rian Romero Work Phone: [facility] Work Phone: 08-20-2021 12:58-0500 Heart rate 72 /min Dr. Rian Romero Work Phone: [facility] Work Phone: 08-20-2021 12:58-0500 Respiratory rate 16 /min Dr. Rian Romero Work Phone: [facility] Work Phone: 08-20-2021 12:58-0500 Systolic blood pressure 108 mm[Hg] Dr. Rian Romero Work Phone: [facility] Work Phone: 08-21-2020 11:04-0500 Body mass index (BMI) [Ratio] 47.2 kg/m2 Dr. Rian Romero Work Phone: [facility] Work Phone: Encounters Encounter Date Encounter Type Care Provider Facility Start: 05-08-2025 ambulatory [facility] Start: 04-26-2025 End: 04-26-[address] Rain Romero MD -Pulmonary Services/Neurology Work Phone: Start: 04-26-2025 End: 04-26-2025 ambulatory Rian Romero Facility:[facility] Start: 04-25-2025 End: 04-25-[address] Rian Romero MD -Radiology [facility] Work Phone: Start: 04-24-2025 End: 04-24-2025 Patient encounter procedure Rian YOUSSEF -[facility] Work Phone: Start: 04-24-2025 End: 04-25-2025 ambulatory Rian Romero Facility:[facility] Start: 04-10-2025 End: 04-10-2025 Patient encounter procedure Rian YOUSSEF -[facility] Work Phone: Start: 04-10-2025 End: 04-10-[address] Rian Romero MD Work Phone: -[facility] Start: 03-14-2025 End: 03-14-[address] Rian Romero MD Work Phone: -[facility] Start: 03-14-2025 End: 03-14-[address] Rian Romero MD -Outpatient Breast Imaging Work Phone: Start: 03-14-2025 End: 03-14-2025 ambulatory Rian Romero Facility:[facility] Start: 03-12-2025 End: 03-12-[address] Rian Romero MD Work Phone: -Radiology [place] Start: 03-12-2025 End: 03-12-[address] Rian Romero MD -Radiology [place] Work Phone: Start: 03-12-2025 End: 03-12-2025 ambulatory Rian Romero Facility:[facility] Start: 03-01-2025 End: 03-01-[address] Rian Romero MD Work Phone: -[facility] Start: 03-01-2025 End: 03-01-[address] Mukesh Garcia MD -[facility] Work Phone: Start: 02-27-2025 End: 02-27-[address] Rian Romero MD Work Phone: -[facility] Start: 02-27-2025 End: 02-27-[address] Mukesh Garcia MD -[facility] Work Phone: Start: 02-25-2025 End: 02-25-[address] Rian Romero MD Work Phone: -[facility] Start: 02-25-2025 End: 02-25-[address] Mukesh Garcia MD -[facility] Work Phone: Start: 02-19-2025 End: 02-19-[address] Rian Romero MD Work Phone: -[facility] Start: 02-19-2025 End: 02-19-[address] Rian Romero MD -[facility] Start: 02-19-2025 End: 02-19-2025 ambulatory Rian Romero Facility:[facility] Start: 02-09-2025 End: 02-09-[address] Rian Romero MD Work Phone: [facility] Start: 02-09-2025 End: 02-09-[address] Mukesh Garcia MD -[facility] Work Phone: Start: 12-14-2024 End: 12-14-[address] Rian Romero MD Work Phone: [facility] Work Phone: Start: 12-14-2024 End: 12-14-2024 Discharged Recurring Jamir Johnson [employer] -Physical Therapy Work Phone: Start: 11-16-2024 End: 11-16-[address] Rian Romero MD Work Phone: [facility] Work Phone: Start: 11-16-2024 End: 11-16-[address] Rian Romero MD -[facility] Start: 11-16-2024 End: 11-16-2024 ambulatory Rian Romero Facility:[facility] Start: 11-14-2024 Registered Recurring Jamir Elizabeth [employer] -Physical Therapy Work Phone: Start: 10-31-2024 End: 10-31-2024 ambulatory Rian Romero Facility:[facility] Start: 10-31-2024 End: 10-31-[address] Mukesh Garcia MD -[facility] Work Phone: Start: 10-23-2024 End: 10-23-[address] Rian Romero MD Work Phone: [facility] Work Phone: Start: 10-23-2024 End: 10-23-2024 Patient encounter procedure Jamir Johnson [employer] -Radiology, [place] Work Phone: Start: 10-23-2024 End: 10-23-2024 ambulatory Rian Romero Facility:[facility] Start: 09-21-2024 End: 09-21-2024 Patient encounter procedure Jamir Johnson [employer] -Laboratory, Specimen Work Phone: Start: 09-21-2024 End: 09-21-[address] Rian Romero MD Work Phone: [facility] Work Phone: Start: 09-17-2024 End: 09-17-2024 Admission to same day surgery center Dr. Francisco Dyson MD -Surgical Day Care Start: 09-17-2024 End: 09-17-[address] Rian Romero MD Work Phone: [facility] Work Phone: Start: 08-22-2024 End: 10-03-2024 ambulatory MD MIGUEL DYSON Facility:[facility] Start: 08-16-2024 End: 08-16-2024 ambulatory Rian Romero Facility:[facility] Start: 08-16-2024 End: 08-16-[address] Mukesh Garcia MD -[facility] Work Phone: Start: 08-01-2024 End: 08-01-2024 ambulatory Mukesh Garcia Facility:[facility] Start: 08-01-2024 End: 08-01-[address] Mukesh Garcia MD -[facility] Work Phone: Start: 07-25-2024 End: 07-25-2024 [facility] Start: 07-25-2024 End: 07-25-2024 ambulatory Rian Romero Facility:[facility] Start: 07-06-2024 End: 07-06-[address] [facility] Start: 07-06-2024 End: 07-06-2024 ambulatory Rian Romero Facility:[facility] Start: 05-24-2024 ambulatory Regulo Baxter Facility:[facility] Start: 05-24-2024 Non-patient / Non-visit Dr. Regulo booth MD -[facility] Start: 05-24-2024 End: 05-24-2024 Patient encounter procedure Yarelis CARBAJAL -Cardiovascular Services Work Phone: Start: 05-24-2024 End: 05-24-2024 ambulatory Rian Romero Facility:[facility] Start: 10-26-2023 End: 10-26-[address] Rian Romero Work Phone: [facility] Work Phone: Start: 10-26-2023 End: 10-26-[address] Rian Romero Work Phone: [facility] Start: 08-04-2023 End: 08-04-[address] Rian Romero Work Phone: [facility] Work Phone: Start: 07-29-2023 End: 09-27-2023 ambulatory RIAN ROMERO MD Facility:B Start: 07-29-2023 End: 09-27-2023 Admission to same day surgery center DR ABHI AMIN MD [facility] Start: 07-26-2023 End: 07-27-2023 ambulatory RIAN ROMERO MD Facility:B Start: 07-08-2023 End: 07-08-[address] Rian Romero Work Phone: [facility] Start: 07-06-2023 End: 07-07-[address] ABHI AMIN MD Facility:B Start: 07-06-2023 End: 07-07-[address] ABHI AMIN MD Facility:B Start: 07-06-2023 End: 07-06-[address] ABHI AMIN MD [facility] Start: 06-22-2023 End: 06-23-2023 Emergency department patient visit JAMES ADAMES MD Facility:B Start: 06-22-2023 End: 06-22-2023 Emergency department patient visit JAMES ADAMES MD [facility] Start: 04-14-2023 End: 04-14-2023 ambulatory [facility] Work Phone: Start: 04-14-2023 End: 04-14-2023 Patient encounter procedure [facility] Start: 02-18-2023 End: 04-14-[address] ABHI AMIN MD Facility:B Start: 02-18-2023 End: 04-14-2023 Admission to same day surgery center DR ABHI AMIN MD [facility] Start: 02-15-2023 End: 02-16-[address] ABHI AMIN MD Facility:B Start: 02-15-2023 End: 02-16-[address] ABHI AMIN MD [facility] Start: 01-21-2023 End: 01-22-[address] ABHI AMIN MD Facility:B Start: 01-17-2023 End: 01-18-[address] ABIH AMIN MD Facility:B Start: 01-17-2023 End: 01-18-[address] ABHI AMIN MD Facility:B Start: 01-17-2023 End: 01-17-[address] ABHI AMIN MD [facility] Start: 01-17-2023 End: 01-17-[address] ABHI AMIN MD [facility] Start: 12-22-2022 End: 12-23-2022 ambulatory RIAN ROMERO MD Facility:B Start: 12-22-2022 End: 12-22-[address] ABHI AMIN MD [facility] Start: 12-20-2022 End: 12-20-[address] Rian Romero Work Phone: [facility] Work Phone: Start: 12-20-2022 End: 12-20-[address] Rian Romero Work Phone: [facility]-Physical Therapy Start: 12-09-2022 End: 12-09-[address] Rian Romero Work Phone: [facility] Work Phone: Start: 12-09-2022 End: 12-09-[address] Rian Romero Work Phone: [facility]-Outpatient Bone Densitometry Start: 12-09-[address] Rian Romero Work Phone: [facility]-Physical Therapy Start: 12-03-2022 End: 12-04-2022 ambulatory RIAN ROMERO MD Facility:B Start: 12-03-2022 End: 12-03-[address] ABHI AMIN MD [facility] Start: 11-22-2022 End: 11-22-[address] Rian Romero Work Phone: [facility] Work Phone: Start: 11-22-2022 End: 11-22-[address] [facility] Start: 11-11-2022 End: 11-11-[address] Rian Romero Work Phone: [facility] Start: 10-18-2022 End: 10-18-[address] Rian Romero Work Phone: [facility] Start: 09-20-2022 End: 09-20-[address] Rian Romero Work Phone: [facility] Start: 09-05-2022 End: 09-08-2022 Evaluation and management of inpatient DR RIAN CHONG MD [facility] Start: 09-05-2022 End: 09-05-2022 Emergency department patient visit DR CANDICE MCCOY MD [facility] Start: 08-12-2022 End: 08-12-[address] Rian Romero Work Phone: [facility] Work Phone: Start: 08-12-2022 End: 08-12-[address] Rian Romero Work Phone: [facility] Start: 08-05-2022 End: 08-06-2022 Emergency department patient visit MARLY DE LUNA MD [facility] Start: 07-01-2022 Non-patient / Non-visit Dr. Susi Romero Work Phone: [facility] Start: 07-01-2022 End: 07-01-[address] Rian Romero Work Phone: [facility] Work Phone: Start: 07-01-2022 End: 07-01-[address] Rian Romero Work Phone: [facility]-Cardiovascula r Services Start: 05-25-2022 End: 05-25-[address] Rian Romero Work Phone: [facility] Start: 05-25-2022 End: 05-25-[address] Rian Romero Work Phone: [facility] Work Phone: Start: 05-25-2022 End: 05-25-[address] Rian Romero Work Phone: [facility]-Outpatient Breast Imaging Start: 04-16-2022 End: 04-16-2022 Emergency department patient visit [facility]-Emergency Department Start: 03-01-2022 End: 03-01-[address] Rian Romero Work Phone: [facility] Work Phone: Start: 03-01-2022 End: 03-01-[address] Rian Romero Work Phone: [facility] Start: 12-09-2021 End: 12-09-[address] Rian Romero Work Phone: [facility] Start: 10-07-2021 End: 10-07-[address] Rian Romero Work Phone: [facility] Start: 09-04-2021 Non-patient / Non-visit Dr. Susi Romero Work Phone: [facility] Start: 09-04-2021 End: 09-04-[address] Rian Romero Work Phone: [facility]-Cardiovascula r Services Start: 08-20-2021 End: 08-20-[address] Rian Romero Work Phone: [facility] Start: 10-27-2020 End: 10-27-2020 ambulatory KELLIE OLMSTEAD [facility] Start: 01-02-2018 Ambulatory [facility] Facility :[facility] Start: 07-05-2017 End: 07-05-2017 Ambulatory [facility] Facility:[facility] Start: 05-23-2017 Ambulatory [facility] Start: 03-11-2017 End: 03-11-2017 [facility] Start: 02-01-2017 End: 02-02-2017 [facility] Procedures Date Procedure Procedure Detail Performing Clinician Start: 04-25-[address] Rian carmen MD Work Phone: Start: 04-25-2025 Plain Radiography of Thoracic Spine Dr. Rian Romero MD Work Phone: Start: 03-14-2025 Screening mammography Collin Romero MD Work Phone: Start: 03-12-2025 Radiologic exam ches t [address] Rian Romero MD Work Phone: Start: 02-19-2025 Urine microalbumin/creatinine ratio measurement Dr. Rian Romero MD Work Phone: Start: 02-19-2025 Vitamin D, 25-hydrox y measurement Dr. Rian Romero MD Work Phone: Comment on above: Vitamin D StatusDefi ciency: <20 ng/mL (50nmol/L)Insufficiency: 20-30 ng/mL (50-75 nmol/L)Sufficiency: 30-100 ng/mL (75-250 nmol/L)Toxicity: >100 ng/mL (>250 nmol/L) Start: 02-19-[address] Rian Romero MD Work Phone: Start: 11-16-2024 Urnls dip stick/tabl et reagent auto microscopy Dr. Rian Romero MD Work Phone: Start: 11-16-2024 Vitamin D, 25-hydrox y measurement Dr. Rian Romero MD Work Phone: Comment on above: Vitamin D StatusDefi ciency: <20 ng/mL (50nmol/L)Insufficiency: 20-30 ng/mL (50-75 nmol/L)Sufficiency: 30-100 ng/mL (75-250 nmol/L)Toxicity: >100 ng/mL (>250 nmol/L) Start: 10-23-2024 X-ray of thoracic sp ine, three views Dr. Rian Romero MD Work Phone: Start: 10-23-2024 Complete x-ray serie s of lumbar spine with bending views Dr. Rian Romero MD Work Phone: Start: 09-21-[address] Rian Romero MD Work Phone: Start: 09-17-2024 Local anesthetic sac ral epidural block Dr. Rian Romero MD Work Phone: Start: 09-17-2024 Injection of spinal epidural space Dr. Rian Romero MD Work Phone: Start: 09-17-2024 Injection using fluo roscopic guidance Dr. Rian Romero MD Work Phone: Start: 07-06-2024 X-ray of lumbar spin e, two or three views Dr. Rian Romero MD Work Phone: Start: 07-26-2023 Total replacement of left knee joint DR ABHI AMIN MD Start: 12-09-2022 Dual energy X-ray absorptiometry Dr. Rian Romero Work Phone: Start: 09-07-2022 Implantation of card iac pacemaker DR RIAN CHONG MD Comment on above: Dual chamber pacemak er implanted by Dr. Hu on 09/07/2022 at [facility]. Pacemaker generator is a [employer] MRI model #HI6911, serial #[id number]. RA lead is a [employer] Tendril STS model #2088TC/52cm, serial #[id number]. RV lead is a [employer] Tendril STS model #2088TC/58cm, serial #[id number]. Start: 05-25-2022 Screening mammography Collin Romero Work Phone: Start: 09-04-2021 Cardiovascular stres s test using pharmacologic stress agent Dr. Rian Romero Work Phone: Appendectomy DR ABHI Jarquin MD Cardioversion DR CANDICE MCCOY MD Cholecystectomy DR ABHI HART MD Destructive procedure DR IFRAH MCCOY MD Hysterectomy DR ABHI Jarquin MD Total knee replacement DR BERONICA FLETCHER Comment on above: RIGHT Plan of Treatment Date Care Activity Detail Author Start: 04-24-2025 End: 04-24-2025 Evaluation of diagnostic study results [facility] Start: 04-10-2025 End: 04-10-2025 Evaluation of diagnostic study results [facility] Start: 09-17-2024 Anes dx/ther nerve block/injection prone pos ANESTH N BLOCK/INJ PRONE [facility] Start: 09-17-2024 Njx dx/ther sbst intrlmnr lmbr/sac w/img gdn NJX INTERLAMINAR LMBR/SAC [facility] Start: 09-17-2024 Injection of spinal epidural space [facility] Start: 09-17-2024 Injection using fluoroscopic guidance [facility] Start: 09-17-2024 Patient discharge [facility] Patient Education ED Atrial Flutter [facility] Work Phone: Patient referral [facility] Work Phone: [facility] Work Phone: Immunizations Immunization Date Immunization Notes Care Provider Fa carli 07-08-2023 influenza virus vacc ine, unspecified formulation DR ABHI AMIN MD [facility] 07-07-2022 influenza virus vacc ine, unspecified formulation DR ABHI AMIN MD [facility] 07-08-2021 SARS-CoV-2 mRNA (tozinameran) vaccine DR ABHI AMIN MD [facility] 10-02-2020 Covid (Pfizer) Dr. Rian Anderson nn Work Phone: [facility] 09-11-2020 Covid (Pfizer) Dr. Rian Anderson nner Work Phone: [facility] Comment on above: Result Comment: 2022: [id number] 03-13-[address] ABHI AMIN MD [facility] 01-11-2020 pneumococcal polysaccharide vaccine, [address] ABHI AMIN MD [facility] 12-29-[address] ABHI AMIN MD [facility] Payers Date Payer Category Payer Self-pay [id number] 2022 Medicare [id number] 2009 Unknown [id number] 1954 Unknown [id number] 2.16.84 0.1.300314.3.579.2.651 1954 Unknown [id number] 2.16.8 40.1.402871.3.579.2.627 1954 Unknown [id number] 2.16.8 40.1.905679.3.579.2.627 1954 Unknown [id number] 2.16.8 40.1.918382.3.579.2.627 1954 Unknown [id number] 2.16.8 40.1.166430.3.579.2. 1954 Unknown [id number] 2.16.8 40.1.071846.3.579.2.627 1954 Unknown [id number] 2.16.8 40.1.848262.3.579.2. 1954 Unknown [id number] 2.16.8 40.1.453411.3.579.2.627 1954 Unknown [id number] .16.8 40.1.032798.3.579.2.627 1954 Unknown [id number] 2.16.8 40.1.068587.3.579.2.627 1954 Unknown [id number] 2.16.8 40.1.450460.3.579.2.7 1954 Unknown [id number] 2.16.8 40.1.512281.3.579.2.7 1954 Unknown [id number] 2.16.8 40.1.439215.3.579.2. 1954 Unknown [id number] 2.16.8 40.1.486203.3.579.2.627 Medicare [id number] Medicare [id number] Unknown [id number] Unknown [id number] Unknown [id number] Unknown [id number] Unknown [id number] 2.16.8 40.1.331067.3.579.2.462 Unknown [id number] 2.16.8 40.1.800402.3.579.2.462 Unknown [id number] 2.16.8 40.1.450287.3.579.2.462 Unknown [id number] 2.16.8 40.1.388201.3.579.2.462 Unknown [id number] 2.16.8 40.1.220795.3.579.2.462 Unknown [id number] 2.16.8 40.1.471887.3.579.2.462 Unknown [id number] 2.16.8 40.1.943981.3.579.2.462 Unknown [id number] 2.16.8 40.1.800091.3.579.2.462 Unknown [id number] 2.16.8 40.1.348032.3.579.2.462 Unknown [id number] 2.16.8 40.1.183581.3.579.2.462 Unknown [id number] 2.16.8 40.1.224188.3.579.2.462 Unknown [id number] 2.16.8 40.1.435731.3.579.2.462 Unknown [id number] 2.16.8 40.1.478774.3.579.2.462 Unknown [id number] 2.16.8 40.1.666808.3.579.2.462 Unknown [id number] 2.16.8 40.1.907161.3.579.2.462 Unknown [id number] 2.16.8 40.1.813133.3.579.2.462 Unknown [id number] 2.16.8 40.1.091325.3.579.2.462 Unknown [id number] 2.16.8 40.1.315174.3.579.2.462 Unknown [id number] 2.16.8 40.1.933627.3.579.2.462 Unknown [id number] 2.16.8 40.1.129550.3.579.2.462 Unknown [id number] 2.16.8 40.1.518417.3.579.2.462 Unknown [id number] 2.16.8 40.1.592135.3.579.2.462 Unknown [id number] 2.16.8 40.1.095608.3.579.2.462 Unknown [id number] 2.16.8 40.1.212159.3.579.2.462 Unknown [id number] 2.16.8 40.1.818833.3.579.2.462 Unknown [id number] 2.16.8 40.1.380664.3.579.2.462 Social History Date Type Detail Facility Start: 08-20-2021 End: 06-17-2023 Tobacco smoking status NHIS Unknown if ever smoked [facility] Start: 1955 Sex Assigned At Female [facility] Start: 01-17-2023 End: 09-14-2024 Tobacco smoking status Ex-smoker (finding) [facility] Sex Assigned At Sex [facility] Start: 09-17-2024 End: 10-26-2024 Sex Female (finding) [facility] Sex Female [facility] NEGATED: Highlighted row Not [facility] Goals Date Patient Goal Desired Activity /State Functional Status Date Assessment Result Facility 07-29-2023 Functional Status Objective: Cardiovascular screen: BP: 120/70 HR: 78 BPM O2 sat: 98% Gait: Ambulates with FWW JOY able to perform step to/step through pattern Weight bearing status: WBAT fww Effusion: min to no effusion present Functional Strength: ASLR limited today 15 deg lag, Sit to stand: JOY but moves very slowly and has a significant sticking point at mid range and relies heavily on UE assist. Palpation: Denies tenderness to palpation R and L calf Special tests: Homans sign - [facility] 07-06-2023 Functional Status Sensory Deficits None A [facility] 06-22-2023 Functional Status Independent [facility] 02-18-2023 Functional Status Objective: Cardiovascular screen: BP: 120/70 HR: 71 BPM O2 sat: 96% Gait: Ambulates with decreased stride length and heavy reliance on FWW Functional: sit to stand: supervision has significant difficulty flexing knee on the R, Car transfers also significantly limited due to limited knee flexion on the R. Weight bearing status: WBAT Effusion: Min knee effusion Palpation: Denies tenderness to palpation to bilateral calf regions Observation: surgical dressings intact without excess drainage or obvious signs of infection. Special Tests: homans negative [facility] 02-16-2023 Functional Status Walker [facility] 02-16-2023 Functional Status Mod I 1 [facility] 02-16-2023 Functional Status bilateral knee high rem chance/off [facility] 02-16-2023 Functional Status 10 [facility] 02-16-2023 Functional Status Ambulation in Room [facility] 02-16-2023 Functional Status Door open, Room check performed [facility] 02-16-2023 Functional Status [facility] 02-15-2023 Functional Status Dinner Percent 90 [facility] 02-15-2023 Functional Status Mod A [facility] 02-15-2023 Functional Status Single level home [facility] 02-15-2023 Functional Status [facility] 02-15-2023 Functional Status Patient Identi fied Identification band, Verbal [facility] 02-15-2023 Functional Status Maintained [facility] 09-08-2022 Functional Status Ambulating in room, Bathroom privileges [facility] 09-08-2022 Functional Status Room check performed [facility] 09-08-2022 Functional Status [facility] 09-07-2022 Functional Status Patient Identi fied Identification band [facility] 09-07-2022 Functional Status Done [facility] 09-06-2022 Functional Status [facility] 09-06-2022 Functional Status 75 [facility] 09-06-2022 Functional Status bilateral knee high [facility] 09-06-2022 Functional Status Single level home [facility] 09-06-2022 Functional Status [facility] 09-05-2022 Functional Status Sensory Deficits None A [facility] 09-05-2022 Functional Status Visitor at bed side, Safety level maintained [facility] 09-05-2022 Functional Status [facility] 08-06-2022 Functional Status Assistive Device None A [facility] 08-05-2022 Functional Status Room check performed [facility] Mental Status Date Assessment Result Facility 09-17-2024 Cognitive function Voice/Name [facility] Work Phone: 06-22-2023 Mental Status Oriented x 4 [facility] 02-16-2023 Mental Status Oriented x 4 [facility] 02-15-2023 Mental Status [facility] 02-15-2023 Mental Status [facility] 09-08-2022 Mental Status Oriented x 4 [facility] 09-08-2022 Mental Status [facility] 09-07-2022 Mental Status [facility] 09-06-2022 Mental Status [facility] 09-05-2022 Mental Status Orientation Oriented x 4 [facility] 08-06-2022 Mental Status Orientation Oriented x 4 [facility] 08-05-2022 Mental Status [facility] 08-05-2022 Mental Status [facility] 04-16-2022 Cognitive function Awake;Alert;A ppropriate;Follo ws Commands [facility] Work Phone: 04-16-2022 Cognitive function Arousable To Voice/Nam e [facility] Work Phone: Clinical Notes 04-16-2022 to 04-24-2025 Note Date & Type Note Facility 04-24-2025 Progress note [facility] 04-24-2025 Progress note Note Date/Time April 24, 2025 5:26pm [facility] [address] [place], [place] [address]e. [address] [place] [address] OFFICE VISIT Date of Service: 04/24/25 MR#: [id number] Acct: [id number] Name: GUADALUPE DAVIS Rep #: [id number] : 1955 Provider: MIKAEL Dunham Age/Sex: 69/F Location: [facility] Status: Signed with Addenda ADDENDUM by MIKAEL Dunham on 05/07/25 at 1623 Addendum Addendum Details:: Patient states that her weight is 294 rather than 224. 05/07/25 1623 <Electronically signed by Rian YOUSSEF> Date _ Rian Dunham NP cc: ~* Signed HPI HPI History of Present Illness Details: GUADALUPE DAVIS, is a 69 F who presents to the office today for a follow up visit. She is a lady with a history of paroxysmal atrial fibrillation who has undergone at least 3 cardioversions and 1 ablation procedure. Her ablation was in February 2017 which was successful. She also had an echocardiogram performed at that time in the form of a stress echo which demonstrated normal left ventricular size and function normal RV size and function mildly dilated left atrium and she exercised to 8.8 metabolic equivalents with no evidence of ischemia. She acknowledges history of YOHAN with CPAP therapy. She recently went to see her improvement director and was noted to be in a tachycardic rhythm was sent [facility] emergency room and was noted to be in atrial flutter with a 2-1 conduction. She underwent synchronized electrocardioversion with 200 J biphasic energy. Shesuccessfully converted back to sinus rhythm. She has been doing well on her current medications. Patient was admitted to [facility] on 09/06/2022 for near syncope. She was seen at [facility]. She was then transferred to [facility]. Presyncope lasted approximately 10 seconds. She was noted to have symptomatic bradycardia. EP was consulted. Her metoprolol and flecainide were held. She did have an echocardiogram done which demonstrated an ejection fraction of 55 to 60%, grade 1 diastolic dysfunction. Patient did undergo a pacemaker placement. She was recent seen with pulmonology team who contacted our office expressing concerns regarding elevated heart rate at 140 bpm. Twelve-lead ECG on 04/10/2025shows atrial fibrillation with a ventricular rate of 108 bpm. She denies chest,arm, jaw, or neck discomfort. She denies palpitations. She acknowledges bilateral lower extremity edema. She denies claudication. She acknowledges shortness breath with activity such as getting out of her chair and walking about her house. This has been ongoing for a year and she feels to be worsening. She denies shortness of breath at rest, orthopnea, cough, or PND. She denies lightheadedness, dizziness, near-syncope, or syncope. She acknowledges fatigue. Intake Vital Signs 04/10/25 08:16 04/24/25 11:22 Height 5 ft 6 in 5 ft 6 in Weight: 224 lb BMI 36.1 BP 109/72 Blood Pressure Location Lt brachial Position Sitting Respiration 18 Pulse 80 Pulse Source Monitor Pulse Oximetry (%) 98 Intake Visit Reasons: 2 W FU Hoop Cutter Required: No Is patient in pain?: No Allergies amoxicillin (From Augmentin) Allergy (Unknown, Verified 04/24/25 15:24) UNKNOWN clavulanic acid (From Augmentin) Allergy (Unknown, Verified 04/24/25 15:24) UNKNOWN Penicillins (PCN) Allergy (Unknown, Verified 04/24/25 15:24) UNKNOWN bacitracin (From Neosporin ([id number])) Adverse Reaction (Intermediate, Verified 04/24/25 15:24) yeast infection neomycin Adverse Reaction (Intermediate, Verified 04/24/25 15:24) yeast infection cephalexin Adverse Reaction (Mild, Verified 04/24/25 15:24) yeast infection Medications ?Medication ?Instructions ?Recorded ?Confirmed ?Type atorvastatin 10 mg tablet (Lipitor) 10 mg PO QDAY #30 tabs 06/12/19 04/24/25 Rx sertraline 50 mg tablet 50 mg PO DAILY 08/21/2004/04 History calcium 600 mg (as 1 cap PO DAILY 08/20/2104/04 History carbonate)-vitamin D3 5 mcg (200 unit) capsule (Calcium 600 + D(3)) multivitamin 1 tab PO DAILY 08/20/2104/04 History gabapentin 300 mg capsule 600 mg PO TID 05/01/2404/24 History melatonin 5 mg capsule 5 mg PO QHS PRN sleep 04/24/25 History magnesium 200 mg tablet 200 mg PO DAILY 09/14/24 History apixaban 5 mg tablet (Eliquis) 5 mg PO BID #60 tabs 04/24/25 Rx diltiazem HCl 120 mg 120 mg PO QAM #90 caps 04/1004/24/25 Rx capsule,extended release 24 hr (Cartia XT) furosemide 40 mg tablet (Lasix) 40 mg PO DAILY #30 tab s 04/10/25 04/24/25 Rx metoprolol succinate 100 mg 100 mg PO ONCE 04/10/25 History tablet,extended release 24 hr Ejection fraction %: 65 Have you fallen in the past year?: No PFSH Medical History Wears glasses Wears dentures Diabetes Ambulates with cane High cholesterol Restless legs Syncope Difficulty swallowing Dietary restriction CPAP (continuous positive airway pressure) dependence Sleep apnea Former smoker History of edema History of stress test History of echocardiogram Cardiology follow-up encounter Sick sinus syndrome Atrial flutter (04/16/22) Right knee DJD Right knee pain Hyperlipidemia Osteoporosis Vaginal prolapse Arthritis Cervical cancer Type 2 diabetes mellitus Paroxysmal atrial fibrillation Essential (primary) hypertension Obesity Obstructive sleep apnea Knee pain Shoulder pain Surgical History Hx of total knee replacement (~07/2023) S/P placement of cardiac pacemaker History of cardioversion (04/16/22) H/O bilateral salpingo-oophorectomy H/O meniscectomy of right knee History of radiofrequency ablation procedure for cardiac arrhythmia (02/01/17) History of cholecystectomy Hx of hysterectomy History of appendectomy Family History Father Diabetes Heart disease Mother Breast cancer CVA (cerebral vascular accident) Kidney disease Social History Smoking Status: Former smoker how long ago did patient quit smokin + years ago alcohol intake: current alcohol intake frequency: a few times a month substance use type: does not use caffeine: Yes (Occasionally) ROS Const Const: Positive for fatigue; Negative for weakness, headache(s) or frequent falls Eyes Eyes: Negative for blurry vision ENT ENT: Negative for headache(s), dizziness or Nosebleed/epistaxis Cardio Chest Pain: No Palpitations: No Edema: None Muscle aches with walking: None Resp Respiratory: Positive for SOB with activity; Negative for SOB at rest or SOB orthopnea\\SOB lying down GI GI: Negative nausea, vomiting, heartburn, bright, red blood in stools or black,tarry stools : Negative for hematuria Neuro Neuro: Negative for dizziness, lightheadedness, near syncope, syncope, frequent falls, headache(s), weakness or blurry vision Endo Endo: Positive for fatigue Cardiology Exam Const Appearance: cooperative, healthy appearing, comfortable and no acute distress Nutritional Appearance: well nourished and obese Orientation: alert, awake and oriented x3 Head Head: normal to inspection Ears: hearing grossly normal bilaterally Nose: external nose normal Face and Sinus: face symmetric Mouth: moist mucous membranes Eyes General: appearance normal, both eyes and all related structures Eyelids: eyelids normal EOM: EOM intact bilaterally Neck Neck: normal visual inspection and no JVD Carotids: normal carotid upstroke Chest Chest inspection: normal inspection of the chest, symmetric chest movement and normal respiratory effort; Negative cough Auscultation: Bilateral: Clear to Auscultation Cardio Rate: tachycardic Rhythm: irregularly irregular Heart sounds: S1 normal and S2 normal; Negative rub, gallop or murmur GI GI: normal to inspection and obese Neuro General: patient alert, patient awake, patient oriented x3 and CN's II-XI intactbilaterally Skin Skin: no rashes or lesions noted Extremities Pulses: Normal: Right Posterior Tibial Pulse, Left Posterior Tibial Pulse, RightRadial Pulse and Left Radial Pulse Lower Extremity Edema: +1: Bilateral and Color Changes: Bilateral (Cool to touch, purple discoloration) Psych Psychological: normal affect Supplemental Info Supplemental Information Echocardiogram 06/2022 Normal LV size. Left ventricular systolic function is normal. The estimated ejection fraction is 65 %. The study was technically limited. The study was technically difficult. Echocardiogram from 08/27/2020: Interpretation Summary Normal LV size. Left ventricular systolic function is normal. The estimate ejection fraction is 55%. Mild concentric left ventricular perjury. Contrast injection was performed. Pharmacologic myocardial perfusion stress test from 09/04/2021: Conclusion: Normal pharmacologic myocardial perfusion stress test. Labs: HDL Cholesterol, (40-) 54 mg/dL Cholesterol, (<=200) 140 mg/dL Triglycerides, (-199) 112 mg/dL Diagnostics: Electrocardiogram Echocardiogram Stress Test Stress Test Nuclear Medicine Pacemaker Check Chest X-Ray Extremity Arterial Study Venous Doppler Study Past Visits: Cardiology Visit 04/24/25 Assessment and Plan Assessment and Plan (1) Paroxysmal atrial fibrillation: Status: Chronic Comment: RFA w/ PVI 02/01/17 Plan: Atrial fibrillation stage: 3A, Paroxysmal 12 Lead EC04/24/2025?ventricular paced rhythm with underlying atrial fibrillation at 80 bpm RFA with PVI: 07/11/2016 DCCV: 04/16/2022 in the ER Echocardiogram: 09/06/2022- EF 55-60%, dilated left atrium Heart Rate Control: Metoprolol, diltiazem Anticoagulation/CVA Protection: Eliquis 5mg PO BID She appears to have been in persistent atrial fibrillation for the last month. Her heart rate is better controlled today. However, she continues to express concerns regarding ongoing shortness of breath. It has been an ongoing issue, but she feels it to be worsening. We discussed undergoing repeat cardioversion to see if this would improve her symptoms. However, she may need to hold her Eliquis for upcoming pain management procedure. Thus, this would potentially delay cardioversion if we proceed with such. Laboratory testing showed stable hemoglobin, stable kidney function, and normal TSH. (2) Essential (primary) hypertension: Status: Chronic Plan: Patient's blood pressure is well-controlled. We will continue to monitor. We will not make any medication regimen changes. (3) S/P placement of cardiac pacemaker: Status: Acute Plan: Device report on 03/01/2025 shows RA pacing 37%, RV pacing 1%, battery life 8 years and 4 months. She is noted to be in persistent atrial fibrillation with ventricular rate of greater than 130 bpm. Based on such report her metoprolol was increased. Patient's device appears to be functioning appropriately. We will continue to monitor this with routine/scheduled follow-ups. (4) Sick sinus syndrome: Status: Acute Plan: She is status post permanent pacemaker for this. (5) Hyperlipidemia: Status: Chronic Qualifiers: Hyperlipidemia type: mixed hyperlipidemia Qualified Code(s): E78.2 - Mixed hyperlipidemia Plan: Lipid panel from 07/06/2024 showed total cholesterol: 142, HDL: 66, LDL: 83, and triglycerides: 130. She will continue risk factor and lifestyle modification. She will continue atorvastatin 10 mg daily Orders: Orders CBC W/Diff, Automated 04/26/25 E78.2 - Mixed hyperlipidemia, E87.1 - Hypo-osmolality and hyponatremia, I10 - Essential (primary) hypertension, I48.0 - Paroxysmal atrial fibrillation, I49.5 - Sick sinus syndrome, Z95.0 - Presence ofcardiac pacemaker Comprehensive Metabolic Profil 04/26/25 E78.2 - Mixed hyperlipidemia, I10 - Essential (primary) hypertension, I48.0 - Paroxysmal atrial fibrillation, I49.5 - Sick sinus syndrome, Z95.0 - Presence of cardiac pacemaker 12 Lead EKG performed by [facility] 04/24/25 E78.2 - Mixed hyperlipidemia, I10 - Essential (primary) hypertension, I48.0 - Paroxysmal atrial fibrillation, I49.5 - Sick sinus syndrome, Z95.0 - Presence of cardiac pacemaker Magnesium 04/26/25 E78.2 - Mixed hyperlipidemia, I10 - Essential (primary) hypertension, I48.0 - Paroxysmal atrial fibrillation, I49.5 - Sick sinus syndrome, Z95.0 - Presence of cardiac pacemaker Thyroid Stim Hormone (TSH) 04/26/25 I48.0 - Paroxysmal atrial fibrillation Plan Details Additional Comments: Thank you for allowing us to participate in the patients plan of care, if you have any questions please do not hesitate to call. Plan was reviewed with patient/family member along with red flag symptoms. Understanding was acknowledged. Questions were answered to apparent satisfaction. This note was generated using a voice recognition system and there may be incorrect words, spelling or punctuation that were not noted when reviewing the office note prior to saving. Portions of this documentation were copied and pasted from previous office visitnotes to provide a cohesive continuity of the history. The note has been reviewed, edited, and updated, as necessary. Follow Up: Keep as is (Ruth and HATCHERY SUPERVISOR) Coding Level of Care Code Off vis,est,level 4 Diagnoses Paroxysmal atrial fibrillation I48.0 Essential (primary) hypertension I10 S/P placement of cardiac pacemaker Z95.0 Sick sinus syndrome I49.5 Mixed hyperlipidemia E78.2 Hyperlipidemia type: mixed hyperlipidemia Coding Level of Care Code Off vis,est,level 4 Diagnoses Paroxysmal atrial fibrillation I48.0 Essential (primary) hypertension I10 S/P placement of cardiac pacemaker Z95.0 Sick sinus syndrome I49.5 Mixed hyperlipidemia E78.2 Hyperlipidemia type: mixed hyperlipidemia Clinical Quality Measures Falls Risk Screening/Assistive Devices Have you fallen in the past year?: No Cardiac Ejection fraction %: 65 04/30/25 1607 <Electronically signed by Rian YOUSSEF> Date _ Rian YOUSSEF Cosigner Signature: Date (if applicable) CC: ~ [place] [employer] Work Phone: 1(847) 169-810410-08-2025 Evaluation note* Diagnosis Onset Date Resolution Status Admit Date S/P placement of cardiac pacemaker acute April 10 2:58pm Sick sinus syndrome acute Octob 2024 2:58pm Essential (primary) hypertension chronic April 10 2:58pm Hyperlipidemia chronic April 2:58pm Paroxysmal atrial fibrillation chron ic April 10, 2025 2:58pm S/P placement of cardiac pacemaker acute April 24 3:19pm Sick sinus syndrome acute Octob er 2024 3:19pm Essential (primary) hypertension chronic April 24 3:19pm Hyperlipidemia chronic April 242024 3:19pm Paroxysmal atrial fibrillation chron ic April 24, 2025 3:19pm [facility] Work Phone: 1(759) 114-379709-09-2025 Radiology Diagnostic study note [facility] Imaging Services [address] [place] [address] Chest PA and Lateral MR#: [id number] Acct: [id number] Name: GUADALUPE DAVIS Rep #: [id number] : 1955 F 69 From: Jennifer Zavaleta MD PCP: Dr. Rian Romero MD Status: RE G CLI Study:Chest PA and Lateral Date of Exam: 03/12/25 Exam# [id number] Ordering Dr: Rian Romero MD PROCEDURE: CHEST PA AND LATERAL 03/12/2025 REASON FOR EXAM: COUGH TECHNIQUE: Procedure Code: RADCXR Modality: DX Procedure: CHEST PA AND LATERAL COMPARISON: 04/24/2020 FINDINGS: Left chest pacer. Mild pulmonary vascular congestion. No focal consolidation. No pleural effusion or pneumothorax. Cardiac silhouette is stable No acute fractures. RAD/Chest PA and Lateral IMPRESSION: Mild pulmonary vascular congestion. No focal consolidation. Reading [id number] CC: Dr. Rian Romero MD ~ Hair Spring Winder: Signed [facility]06-19-2025 Discharge summary Author Matthew Monet [facility] Note Date/Time December 20, 2024 4:55 pm [facility] Physical Therapy [facility] [address] [place] [address]. [address] [place] [address] / REHABILITATION SERVICES DISCHARGE SUMMARY MR#: [id number] Acct: [id number] Name: GUADALUPE DAVIS Rep #: [id number] : 1955 69 From: Natalee Perrin. T, OCS Referring Dr.: Jamir Johnson Status: REG RCR Insurance: [employer]URANCE Discharge Summary D/C summary: It has been my pleasure to treat GUADALUPE DAVIS referred by MIKAEL Champagne, with the diagnosis of LEG WEAKNESS for a total of 9 visit(s). Discharge Date: 12/20/24 Please see the following information for a summary of their discharge status. Subjective Subjective: PT is helping some Plan to use silver sneaker Pain Bilateral Back: Pain Intensity (Out of 10): 3 Overall Improvement % Improvement: 30 Objective Objective/Function: POSTURE: mild forward posture ,hips/knees flexed GAIT: ambulates with 2 point gait slow chichi shuffles unsteady with cane ( uses rollator at home) BALANCE: fair with cane AROM: supine knee flexion 5-105 degrees supine flexion FLEXABILITY: hamstrings mod tight MMT: ( peak force) quads right 28.1 ,left 27.2 , hamstrings right 36.7 ,left 34..2 ,hip flexion right 27.9 ,left 26.1 Goals Goal 1:: Patient to be I with HEP for strengthening Goal Progress: Progressing Goal 2:: Patient to improve CATSIBE score by 5 points to decrease risk of falls Goal Progress: Progressing Goal 3:: Patient to improve peak force quads/hams/hip by 5-10# to improve gait Goal Progress: Goal Met Goal 4:: Patient to improve LFES score by 5 points to improve QOL and gait Goal Progress: Progressing Goal 5:: Patient to demonstrate 50% improvement with less pain and improved function with gait Plan Plan: D/C TO HEP D/C Information Discharge Comments: -Silver sneakers - water ex's d/c sentence: If there are questions or concerns regarding this patient's physical therapy, please feel free to call me at [phone]. Thank you for the referral of thispatient. Sincerely, Matthew Monet, PT, Cert MDT, OCS Balance/Gait/Functional tests Balance/Special Test Scores CATSIB Score (Max score 120 seconds): 55 Lower Extremity Functional Score: 12 Improvement % Improvement: 30 <Electronically signed by Cert. LAWRENCE Loyola PT, OCS> 12/20/24 5118 CC: Jamir Johnson; Dr. Rian Romero MD ~ JLA Signed [facility] Work Phone: 1([phone]) 946-273506-19-2025 Discharge summary [facility] Physical Therapy [facility] [address] [place] [address] / REHABILITATION SERVICES DISCHARGE SUMMARY MR#: [id number] Acct: [id number] Name: GUADALUPE DAVIS Rep #: [id number] : 1955 69 From: Cert. LAWRENCE Perrin, OCS Referring Dr.: Jamir Johnson Status: REG RCR Insurance: [employer]F PA[employer] INSURANCE Discharge Summary D/C summary: It has been my pleasure to treat GUADALUPE DAVIS referred by MIKAEL Champagne, with the diagnosis of LEG WEAKNESS for a total of 9 visit(s). Discharge Date: 12/20/24 Please see the following information for a summary of their discharge status. Subjective Subjective: PT is helping some Plan to use silver sneaker Pain Bilateral Back: Pain Intensity (Out of 10): 3 Overall Improvement % Improvement: 30 Objective Objective/Function: POSTURE: mild forward posture ,hips/knees flexed GAIT: ambulates with 2 point gait slow chichi shuffles unsteady with cane ( uses rollator at home) BALANCE: fair with cane AROM: supine knee flexion 5-105 degrees supine flexion FLEXABILITY: hamstrings mod tight MMT: ( peak force) quads right 28.1 ,left 27.2 , hamstrings right 36.7 ,left 34..2 ,hip flexion right 27.9 ,left 26.1 Goals Goal 1:: Patient to be I with HEP for strengthening Goal Progress: Progressing Goal 2:: Patient to improve CATSIBE score by 5 points to decrease risk of falls Goal Progress: Progressing Goal 3:: Patient to improve peak force quads/hams/hip by 5-10# to improve gait Goal Progress: Goal Met Goal 4:: Patient to improve LFES score by 5 points to improve QOL and gait Goal Progress: Progressing Goal 5:: Patient to demonstrate 50% improvement with less pain and improved function with gait Plan Plan: D/C TO HEP D/C Information Discharge Comments: -Silver sneakers - water ex's d/c sentence: If there are questions or concerns regarding this patient's physical therapy, please feel free to call me at [phone]. Thank you for the referral of thispatient. Sincerely, Matthew Monet, PT, Cert MDT, OCS Balance/Gait/Functional tests Balance/Special Test Scores CATSIB Score (Max score 120 seconds): 55 Lower Extremity Functional Score: 12 Improvement % Improvement: 30 12/20/24 165 CC: Jamir MAC NP-C Elizabeth; Dr. Rian Romero MD ~ JLA Signed [facility]04-22-2025 Radiology Diagnostic study note [facility] Imaging Services [address] [place], [place] [address] L/S Spine w Bend Min 6 Vw MR#: [id number] Acct: [id number] Name: GUADALUPE DAVIS Rep #: [id number] : 1955 F 69 From: Se Ramachandran DO PCP: Dr. 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 6 views total were obtained. COMPARISON: None FINDINGS: Curvature: Normal lordotic lumbar curvature. Bones: There are 5 lumbar-type vertebral bodies below the last set of paired ribs. Vertebral body heights are within normal limits. There is approximately 5 mm of anterolisthesis of L 4 in relationship to L5. This appears stable on both flexion and extension views. Other: There does appear to be some disc space narrowing involving the posterioraspect of the L1-L2, L2-L3 and L3-L4 disc spaces are there is slight disc space narrowing involving the L4-L5 and L5-S1 disc. There does appear to be some bony encroachment of the neural foramina at levels. Radiopaque clips are projected over the right mid abdominal region. RAD/L/S Spine w Bend Min 6 Vw IMPRESSION: Approximately 5 mm of anterior listhesis of L4 in relationship to L5. Degenerative disc disease involving all levels as described above. There is some bony encroachment on the neural foramina. Reading Location: [id number] CC: Jamir Johnson; Dr. Rian Romero MD ~ Hair Spring Winder: Signed [facility]04-22-2025 Radiology Diagnostic study note [facility] Imaging Services [address] [place], [place] [id number] Thoracic Spine 3 Views MR#: [id number] Acct: [id number] Name: GUADALUPE DAVIS Rep #: [id number] : 1955 F 69 From: Stewart Mendoza MD PCP: Dr. Rian Romero MD Status: RE G CLI Study:Thoracic Spine 3 Views Date of Exam: 10/23/24 Exam# [id number] Ordering Dr: Jamir Johnson NP PROCEDURE: THORACIC SPINE 3 VIEWS 10/23/2024 REASON FOR EXAM: UPPER BACK PAIN, RECENT FALL TECHNIQUE: 3 views of the thoracic spine. FINDINGS: Normal thoracic vertebral body heights. Disc space heights are preserved. Normal alignment. Paraspinal soft tissues are unremarkable. Other: RAD/Thoracic Spine 3 Views IMPRESSION: NEGATIVE THORACIC SPINE X-RAYS. Reading Location: [facility] CC: Jamir Johnson; Dr. Rian Romero MD ~ Hair Spring Winder: Signed [facility]03-17-2025 Consult note [facility] Medical Records Department [address] [place] [address] Anesthesia Postop Eval I 09/17/24 1256 MR#: [id number] Acct: [id number] Name: GUADALUPE DAVIS Rep #:[id number] : 1955 69 From: Evelyn Reid CRNA PCP: Dr. Rian Romero MD Status:CHRISTINE Greenwood [facility] Y Race: C Location: [place] [address] Anesthesia: Postop Eval I Current Vital Signs Temperature: 97.4 F Pulse Rate: 99 Blood Pressure: 148/85 Respiratory Rate: 14 Pulse Ox: 98 Oxygen Delivery Method: Room Air Assessment Airway patent: Yes Spontaneous unlabored respirations: Yes Mental status: Awake nausea: No Vomiting: No Anesthesia Complication: No Fluid Hydration Crystalloid volume administer (ml): 10 Total IV fluid infused: 10 Progress Note Anesthesia document: Postop Eval 1 completed: Yes 09/17/24 1257 NA> Date _ Evelyn Reid SCOURING PADS SUPERVISOR Cosigner Signature: Date CC: ~ Signed [facility]03-17-2025 Procedure note [facility] Medical Records Department [address] [place] [address] Operative Report 09/17/24 1250 MR#: [id number] Acct: [id number] Name: GUADALUPE DAVIS Rep #:[id number] : 1955 69 From: Francisco Dyson MD PCP: Dr. Rian Romero MD Status:CHRISTINE Greenwood [facility] Location: [place] [address] Operative Report (Standard) Operative Information Date of Procedure: 09/17/24 Pre-Operative Diagnosis: Lumbosacral radiculopathy, lumbosacral degenerative disc disease, lumbosacral spinal stenosis Post-Operative Diagnosis: Lumbosacral radiculopathy, lumbosacral degenerative disc disease, lumbosacral spinal stenosis Surgery/Procedure Performed: Diagnostic/therapeutic caudal pleural steroid injection under fluoroscopic guidance respiratory therapy director: No Type of Anesthesia: Local MAC RN Documented Start/Stop Times: Operation Date: 09/17/24 13:20 Case Time Into Pre-Op 09/17/24 11:51 Anesthesia Start 09/17/24 12:37 Into Room 09/17/24 12:37 Anesthesia End 09/17/24 12:49 Out of Room 09/17/24 12:49 Procedure End 09/17/24 12:49 Procedure Start Time: 12:51 Procedure Stop Time: 12:51 Select all DRAINS/GRAFTS/IMPLANTS that apply: None Estimated Blood Loss: 1 Specimen collected: No Description of surgery: ANESTHESIA: MAC. BLOOD LOSS: Minimal. COMPLICATIONS: None. DESCRIPTION OF PROCEDURE: History and physical of today was reviewed. Risks and benefits of the procedure were explained. The patient understood and agreedto proceed. Informed consent was obtained. IV inserted per routine protocol. The patient was taken to the operating room and placed in the proneposition with a pillow positioned underneath the abdomen. The lower back and tailbone area was prepped and draped in a sterile fashion using iodine x3. Under fluoroscopy guidance on a lateral view, the caudal space was identified. The skin and subcutaneous tissue was anesthetized with approximately3 mL of 1% lidocaine using a 25-gauge regular needle. Under direct visualization with fluoroscopy, u sing a 22-gauge 3-1/2-inch spinal needle, the needle was advanced via the skin through the sacral hiatus. The tip of the needle was passed through the sacrococcygeal ligament and advanced to approximately S4 area. After negative aspiration of blood or CSF, a total of 3 mL of contrast was injected to confirm correct placement of the needle as well as cephalad spread. The spread was followed to approximately L5 area. After confirmation on AP as well as lateral view and repeated negative aspiration, a total of 15 mL of preservative-free 0.125% Marcaine with 80 mg of Depo-Medrol was injected easily. The needle was then removed intact. The patient experienced no sign or symptoms of intrathecal or intravascular injection. The patient experienced no paresthesia. The procedure was completed without any apparent difficulty or anycomplications. The patient appeared to tolerate it well. ASSESSMENT AND PLAN: This is a 69-year-old female with lumbosacral radiculopathy, lumbosacral degenerative disc disease,lumbosacral spinal stenosis status post diagnostic/therapeutic caudal epidural steroid injection under fluoroscopic guidance, patient will continue current medications, patient will follow up in approximately 2 weeks for reevaluation. Surgical Findings: 0 Complications Complications: No Admit VTE Documentation VTE Present on Admission: No VTE Mechan Device Prophylaxis: None VTE Pharm Prophylaxis ordered?: No 09/17/24 1252 Cosigner Signature (if applicable): CC: Dr. Francisco Dyson MD; Dr. Rian Romero MD~ Signed [facility] [place]03-17-2025 Consult note [facility] Medical Records Department [address] [place] [address] Pre-Anesthesia Evaluation 09/17/24 1225 MR#: [id number] Acct: [id number] Name: GUADALUPE DAVIS Rep #:[id number] 15 : 1955 69 From: Jarad Ye MD PCP: Dr. Rian Romero MD Status:[facility] Y Race: C Location: [place] [address] ASA Classification* ASA Classification ASA Classification: 3 Assessment & Plan Anesthesia* Anesthesia Assessment Anesthesia Assessment: Discussed sedation and/or anesthesia options, risks, benefits, and alternatives with patient/parents/legal guardian/POA. Questions invited. The patient/parents/legal guardian/POA seems to understand and agrees to proceedwith anesthesia plan. Reviewed the physical assessment, medical history, allergy history and patient home medications list prior to surgery/procedure/anesthetic and documented any changes. Performed airway and anesthesia risk assessments. Anesthesia Type Anesthesia Type: MAC History Source History Obtained from:: Patient and Chart Anesthesia Focused Assessment* Temperature: 96.9 F Pulse Rate: 96 Blood Pressure: 160/74 Respiratory Rate: 18 Pulse Ox: 95 Oxygen Delivery Method: Room Air Airway Assessment Mouth opens: 2 cm Mallampati Score: III Teeth Condition: Dentures (Patient has upper full dentures.) and Missing (Patient is edentulous on the bottom.) Neck Range of motion (ROM): Limited ROM (slight decrease in extension) Focused Labs Anesthesia Preop lab: CBC WBC 7.0 K/mm3 (4.4-11.0) 07/06/24 14:59 07/06/24 RBC 4.89 M/mm3 (4.2-5.4) 07/06/24 14:59 07/06/24 Hgb 12.8 g/dL (12.0-15.0) 07/06/24 14:59 07/06/24 Hct 41.3 % (37-47) 07/06/24 14:59 07/06/24 Plt Count 282 K/mm3 (150-450) 07/06/24 14:59 07/06/24 CHEMISTRY Potassium 3.8 mmol/L (3.5-5.1) 07/06/24 14:59 07/06/24 Sodium 140 mmol/L (136-145) 07/06/24 14:59 07/06/24 Magnesium 1.8 mg/dL (1.6-2.6) 07/06/24 14:59 07/06/24 BUN 13 mg/dL (7-18) 07/06/24 14:59 07/06/24 Creatinine 0.74 mg/dL (0.55-1.02) 07/06/24 14:59 07/06/24 Glucose 191 mg/dL (74-106) H 07/06/24 14:59 07/06/24 TSH 2.570 uIU/mL (0.358-3.740) 04/05/24 17:03 09/24 COAG Pre-Assessment Diagnosis/Proposed Procedure Planned Operative Procedure(s): CAUDAL BLOCK Anesthesia History Anesthesia History - home support worker: Anesthesia History - home support worker Hx Hospitalization No 09/14/24 12:09 Any Problems With Anesthesia [ No 04/16/22 18:23 1 (Initial Baseline)] Any Problems With Anesthesia No 09/14/24 12:09 Cholinesterase deficiency No 09/14/24 12:09 You/Your Family Experience No 09/14/24 12:09 fever (hyperthermia) with Relationship Recent Exposure to Contagious No 09/17/24 12:17 Disease Does patient have nerve No 09/14/24 12:09 stimulator Patient instructed to have device shut off --Does patient have Pacemaker No 09/17/24 12:17 or ICD? When Was Last Pacemaker Check QUESTION #4 FULL TEXT: You/Your Family Experience fever (hyperthermia) with Anesthesia Last Oral Intake Last Oral intake: Last Oral Intake NPO since 23:00 09/17/24 12:17 Meds taken in AM with sips of water? Meds patient instructed to take am of surgery PONV PONV - home support worker: PONV - home support worker Female Yes 09/14/24 12:09 HX of Motion Sickness No 09/14/24 12:09 HX of N/V After Surgery No 09/14/24 12:09 Non-Smoker Yes 09/14/24 12:09 Duration of Surgery greater No 09/14/24 12:09 than 60 minutes Number of Risk Factors 2 09/14/24 12:09 PONV Score Moderate Risk 09/14/24 12:09 Height & Weight Height & Weight: Anesthesia: Height & Weight Height 5 ft 6 in 09/17/24 12:17 Weight: 133.6 kg 09/17/24 12:17 Body Mass Index (BMI) 47.5 09/17/24 12:17 Respiratory Assessment Respiratory Assessment - home support worker: Respiratory Tract Infection Hx - home support worker Hx Respiratory Tract Infection No 09/14/24 12:09 STOP Sleep Apnea STOP Sleep Apnea - home support worker: STOP Sleep Apnea - home support worker Hx Hypertension Yes: CONTROLLED WITH MED 09/14/24 12:09 Hx Sleep Apnea Yes 09/14/24 12:09 CPAP Yes 09/14/24 12:09 BIPAP No 09/14/24 12:09 Do you snore loudly (louder than talking or can be heard Do you often feel tired/ fatigued/ sleepy during daytime? Has anyone observed you stop breathing during sleep? STOP Results Positive 09/14/24 12:09 QUESTION #5 FULL TEXT : Do you snore loudly (louder than talking or can be heard through closeddoors)? Tobacco Use History Tobacco Use History - home support worker: Tobacco Use History - home support worker Tobacco Use Smoking Status Former smoker 09/14/24 12:09 Hx Tobacco Use No 09/14/24 12:09 Years Smoking Packs Smoked per Day Smoking Cessation Date was No - quit smoking greater 09/14/24 12:09 within the last 15 years than 15 years ago Hx Smoking Cessation Date 07/04/90 09/14/24 12:09 Hx Smoking Cessation Counseling Hematologic Medial History Hematologic Hx - home support worker: Hematologic Medical Hx - brand designer Hx of Blood Transfusion No 09/14/24 12:09 Hx of Transfusion in last 3 No 09/14/24 12:09 Months Date of Last Transfusion (if within last 3 months) Ever experience any problems No 09/14/24 12:09 with transfusion(s)? Specify any problems Hx of Preganancy in last 3 N/A 09/14/24 12:09 Months Nurse Filling Out Transfusion NBUCHER 09/14/24 12:09 & Questions: Date: 09/14/24 09/14/24 12:09 Time: 12:11 09/14/24 12:09 Patient unable to answer at this time (ie. confused, unrespo /Reproduction History /Reproductive History - home support worker: /Reproductive Hx- home support worker Hx Now No 09/14/24 12:09 Gestational Age (in weeks): EDC: Hx Hx Para Hx Section SAB No 09/14/24 12:09 [facility] Medical History Wears glasses Wears dentures Diabetes Ambulates with cane High cholesterol Restless legs Syncope Difficulty swallowing Dietary restriction CPAP (continuous positive airway pressure) dependence Sleep apnea Former smoker History of edema History of stress test History of echocardiogram Cardiology follow-up encounter Sick sinus syndrome Atrial flutter (04/16/22) Right knee DJD Right knee pain Hyperlipidemia Osteoporosis Vaginal prolapse Arthritis Cervical cancer Type 2 diabetes mellitus Paroxysmal atrial fibrillation Essential (primary) hypertension Obesity Obstructive sleep apnea Knee pain Shoulder pain Home Medications ?Medication ?Instructions ?Recorded ?Last Taken ?Type atorvastatin 10 mg tablet (Lipitor) 10 mg PO QDAY #30 tabs 06/12/19 09/14/24 Rx sertraline 50 mg tablet 50 mg PO DAILY 08/21/2009/01 History calcium 600 mg (as 1 cap PO DAILY 08/20/2109/01 History carbonate)-vitamin D3 5 mcg (200 unit) capsule (Calcium 600 + D(3)) multivitamin 1 tab PO DAILY 08/20/2109/01 History rivaroxaban 20 mg tablet (Xarelto) 20 mg PO DAILY #90 TABLETS 12/01/23 09/14/24 Rx gabapentin 300 mg capsule 600 mg PO TID 05/01/2409/17 History melatonin 5 mg capsule 5 mg PO QHS PRN sleep 09/16/24 History metoprolol succinate 50 mg 50 mg PO DAILY #90 tabs 09/14/24 Rx tablet,extended release 24 hr magnesium 200 mg tablet 200 mg PO DAILY 09/14/24 History Allergy/AdvReac Type Severity Reaction Status Date / Time amoxicillin (From Augmentin) Allergy Unknown UNKNOWN Verified 09/17/24 12:15 clavulanic acid (From Allergy Unknown UNKNOWN Verified 09/17/24 12:15 Augmentin) Penicillins (PCN) Allergy Unknown UNKNOWN Verified 09/17/24 12:15 bacitracin (From Neosporin AdvReac Intermediate yeast Verified 09/17/24 12:15 ([id number])) infection neomycin AdvReac Intermediate yeast Verified 09/17/24 12:15 infection cephalexin AdvReac Mild yeast Verified 09/17/24 12:15 infection Family History Father Diabetes Heart disease Mother Breast cancer CVA (cerebral vascular accident) Kidney disease Surgical History Hx of total knee replacement (~07/2023) S/P placement of cardiac pacemaker History of cardioversion (04/16/22) H/O bilateral salpingo-oophorectomy H/O meniscectomy of right knee History of radiofrequency ablation procedure for cardiac arrhythmia (02/01/17) History of cholecystectomy Hx of hysterectomy History of appendectomy Social History Smoking Status: Former smoker how long ago did patient quit smokin + years ago alcohol intake: current alcohol intake frequency: a few times a month substance use type: does not use caffeine: Yes (Occasionally) Review of Systems (Anesthesia) ROS Narrative System reviewed and no additional complaints, except as documented. 09/17/24 1234 darrius FLETCHER> Date _ Jarad Ye MD Cosigner Signature: Date CC: ~ Signed [facility] [place]01-22-2025 Evaluation note* Diagnosis Onset Date Resolution Status Admit Date Venous insufficiency acute Sebastián 2024 1:53pm S/P placement of cardiac pacemaker acute August 16, 025 2:38pm Sick sinus syndrome acute Febru 2024 2:38pm S/P placement of cardiac pacemaker acute August 16, 025 2:39pm Essential (primary) hypertension chronic August 16, 025 2:39pm Hyperlipidemia chronic August 042024 2:39pm Paroxysmal atrial fibrillation chron ic August 16, 2024 2:39pm [facility] [place] Work Phone: 1(220) 431-234312-21-2023 Hospital Discharge instructions Patient Education 06/22/2023 23:04:10 Angioedema Angioedema Angioedema (QG-uuz-ow-eh-NAILA-muh) is a sudden appearance of swollen patches (edema) on the skin or mucous membranes. It most often involves the face, lips, mouth, tongue, back of throat, or vocal cords. It may also occur in other places, such as the arms or legs. A rash may also appear during the first 4 days of this illness. There are different types of angioedema. Your symptoms will depend on what type of angioedema you have. Swelling and redness may be the main symptoms. Like allergic reactions, angioedema may include: Rash, hives, redness, welts, blisters Itching, burning, stinging, pain Dry, flaky, cracking, or scaly skin Swelling of the face, lips, tongue, or other parts of the body More severe symptoms may include: Trouble swallowing, or feeling like your throat is closing Trouble breathing or wheezing Hoarse voice or trouble speaking Nausea, vomiting, diarrhea, or stomach cramps Feeling faint or lightheaded, rapid heart rate, or low blood pressure Angioedema can be triggered by exposure to certain substances. Medical conditions involving the immune systems and certain infections may cause it. In rare cases, angioedema can be hereditary. Sometimes the cause may be very clear. However, it is often hard to find a cause. The most common causes include: Foods, such as shrimp, shellfish, peanuts, milk products, gluten, and eggs; also colorings, flavorings, and additives Insect bites or stings, from bees, mosquitos, fleas, or ticks Medicines, such as DIVINA inhibitors, penicillin, sulfa medicines, amoxicillin, aspirin, and ibuprofen Latex, which may be in gloves, clothes, toys, balloons, and some kinds of tape. People who are allergic to latex may have problems with foods such as bananas, avocados, kiwi, papaya, or chestnuts. Stress Heat, cold, or sunlight The most common cause of angioedema is a reaction to a class of medicines called DIVINA inhibitors. These are used to treat high blood pressure. DIVINA inhibitors include captopril, enalapril, and lisinopril. Angiodema can happen even after you have been taking the medicine for some time. Tell your doctor if you have angioedema symptoms and are taking any of these medicines. Angioedema may recur. It isimportant to watch for the earliest signs of this condition (see the list below). Contact your healthcare provider right away if swelling involves the face, mouth, or throat. Home care Rest quietly today. Don't do vigorous physical activity. Medicines: The healthcare provider may prescribe medicines for itching, swelling, or pain. Follow the healthcare provider s instructions when taking these medicines. Oral diphenhydramine is an antihistamine available without a prescription. Unless a prescription antihistamine was given, diphenhydramine may be used to reduce widespread itching. It may make you sleepy, so be careful using it when going to school, working, or driving. (Note: Do not use diphenhydramine if you have glaucoma or if you are a man who has trouble urinating due to an enlarged prostate.) Loratadine is an antihistamine that may cause less drowsiness. Don't use diphenhydramine cream on your skin. Some people can have an allergic reaction to this. Calamine lotion or oatmeal baths sometimes help with itching. You may use acetaminophen or ibuprofen for pain, unless another pain medicine was prescribed. If you were told that your angioedema was caused by a medicine you are taking, you must stop takingit. Ask your healthcare provider for a different one. In the future, advise medical staff that you are allergic to this medicine. If medicine was prescribed, such as steroids or antihistamines, be sure you understand what the medicine is and how to take it. General care Make sure you do not scratch areas of the body that had a reaction. This will help prevent infection. Stay away from air pollution, tobacco, and wood smoke. Also stay away from cold temperatures. Thesethings can make allergy symptoms worse. Try to find out what cause your reaction. Make sure to remove the allergen. Future reactions may beworse. If you have a serious allergy, wear a medical alert bracelet that notes this allergy. If the healthcare provider prescribed an epinephrine auto injector kit, keep it with you at all times. Tell all care providers about your allergy. Ask them h ow to use any prescribed medicines. Keep a record of allergies and symptoms, and when they occurred. This will help your provider treatyou over time. Follow-up care Follow up with your healthcare provider, or as advised. You may need to see an legal intern. An legal intern can help find the cause of an allergic reaction and give recommendations on how to prevent future reactions. Call 911 Call 911 right away if any of these occur: Trouble breathing or swallowing, or wheezing Hoarse voice or trouble speaking, or drooling Chest pain or tightness Confusion, lightheadedness, or dizziness Extreme drowsiness or trouble awakening Fainting or loss of consciousness Rapid heart rate Vomiting blood, or large amounts of blood in stool Seizure Nausea, vomiting, diarrhea, abdominal pain, or stomach cramps When to seek medical attention Call your healthcare provider right away if any of the following occur: Symptoms don't go away Symptoms come back Symptoms get worse or new symptoms develop Hives feel uncomfortable Fever of 100.4 F (38 C), or as directed by your healthcare provider [phone] [employer]. [address] [place] [address], [place] [address]. All rights reserved. This information is not intended as a substitute for professional medical care. Always follow yourhealthcare professional's instructions. Follow Up Care 06/22/2023 21:43:25 With:RIAN ROMERO Address: [facility] [address] [phone] Business (1) When:2-4 days Comments:Follow-up as needed if symptoms persist.Use Benadryl 50 mg every 6 hours as needed until symptoms resolved.Use famotidine and prednisone as prescribed to suppress symptoms of an allergic reaction.Return to the ED if symptoms worsen. [facility] Josephinehiwot Min 12-20-2023 Note Discharge Instructions Thank you for allowing [facility] to assist you with your healthcare needs. The following is importantdischarge information regarding your hospital visit. Diagnosis from Today's Visit Tongue swelling - Minor What to Do Next Instructions from Your Care Team No qualifying data available. Post Acute Orders No qualifying data available. You Need to Schedule the Following Appointments Follow Up with RIAN ROMERO When Within 2-4 days Why: Follow-up as needed if symptoms persist. Use Benadryl 50 mg every 6 hours as needed until symptoms resolved. Use famotidine and prednisone as prescribed to suppress symptoms of an allergic reaction. Return to the ED if symptoms worsen. Where: [address] [address] [phone] Business (1) Allergies Neosporin bacitracin (Cephalexin, Polymyxins) cephalexin neomycin Medications Please ask your primary doctor or pharmacist before taking any other medication not listed, including over the counter drugs, herbal medications, vitamins and or supplements as they may interact withyour home medications. What How Much When Instructions Last Dose New famotidine (famotidine 20 mg oral tablet) 1 tab(s) by mouth Two (2) times a day Duration: 5 Days Printed Prescription New predniSONE (predniSONE 20 mg oral tablet) 2 tab(s) by mouth Once a day Duration: 5 Days Printed Prescription Unchanged atorvastatin (atorvastatin 10 mg oral tablet) 1 tab(s) by mouth Once a day Unchanged cholecalciferol (Vitamin D3) 25 Microgram by mouth Every 12 hours Unchanged magnesium oxide (Magnesium 250 mg tablet) 2 tab(s) by mouth Once a day Unchanged melatonin (melatonin 5 mg oral tablet) 1 tab(s) by mouth Daily at bedtime as needed for as needed for insomnia Unchanged metoprolol (Toprol-XL 50 mg oral tablet, extended release) 1 tab(s) by mouth Once a day with a meal Duration: 30 Days Unchanged multivitamin (Multivitamin) 1 tab(s) by mouth Every day Unchanged rivaroxaban (Xarelto) 20 Milligram by mouth Once a day (in the evening) Unchanged sertraline (sertraline 50 mg oral tablet) 1 tab(s) by mouth Once a day Unchanged vitamin E (vitamin E 400 intl units oral capsule) 1 cap by mouth Every day Please take this list to your next doctor s visit. Bring all medications you take, including over the counter medications, herbals and other supplements with you to your doctor s visit. Patients and families are reminded to discard old lists and to update any records with all medication providers or retail pharmacies. Medication Leaflets famotidine (oral/injection) (fam [place] ti veronica) Heartburn Relief, Pepcid, Pepcid AC, Pepcid AC Maximum Strength, Zantac 360 What is the most important information I should know about famotidine? Follow all directions on the label and package. Use exactly as directed. What is famotidine? Famotidine is used to treat and prevent ulcers in the stomach and intestines. It also treats conditions in which the stomach produces too much acid, such as Yuni-Virk syndrome. Famotidine also treats gastroesophageal reflux disease (GERD) and other conditions in which acid backs up from the stomach into the esophagus, causing heartburn. The Zantac 360 brand of this medicine does not contain ranitidine, a medicine that was withdrawn from market in the [place]. Famotidine may also be used for purposes not listed in this medication guide. What should I discuss with my healthcare provider before taking famotidine? Heartburn can feel like a heart attack. Get emergency medical help if you have chest pain that spreads to your jaw or shoulder. You should not use this medicine if you are allergic to famotidine or similar medicines such as ranitidine (Zantac), cimetidine (Tagamet), or nizatidine (Axid). Ask a doctor or pharmacist if this medicine is safe to use if you have: kidney disease; liver disease; cancer stomach; or long QT syndrome (in you or a family member). Ask a doctor before using this medicine if you are or . How should I take famotidine? Use exactly as directed on the label, or as prescribed by your doctor. Famotidine oral is taken by mouth. Famotidine injection is given in a vein if you are unable to take the medicine by mouth. You may take famotidine oral with or without food. Measure liquid medicine with the supplied syringe or a dose-measuring device (not a kitchen spoon). Most ulcers heal within 4 weeks of famotidine treatment, but it may take up to 8 weeks of using this medicine before your ulcer heals. Keep using the medication as directed. Call your doctor if the condition you are treating with famotidine does not improve, or if it gets worse while using famotidine. Your treatment may also include changes in diet or lifestyle habits. Follow all instructions of your doctor or dietitian. Store at room temperature away from moisture, heat, and light. Do not allow the liquid medicine to freeze. Throw away any unused famotidine liquid that is older than 30 days. What happens if I miss a dose? Take the medicine as soon as you can, but skip the missed dose if it is almost time for your next dose. Do not take two doses at one time. What happens if I overdose? Seek emergency medical attention or call the Poison Help line at . What should I avoid while taking famotidine? Drinking alcohol may increase the risk of damage to your stomach. Avoid taking other stomach acid reducers unless your doctor has told you to. However, you may take an antacid (such as Maalox, Mylanta, Gaviscon, Milk of Magnesia, Rolaids, or Tums) with famotidine. What are the possible side effects of famotidine? Get emergency medical help if you have signs of an allergic reaction: hives; difficult breathing; swelling of your face, lips, tongue, or throat. Stop using famotidine and call your doctor at once if you have: confusion, hallucinations, agitation, lack of energy; a seizure; fast or pounding heartbeats, sudden dizziness (like you might pass out); or unexplained muscle pain, tenderness, or weakness especially if you also have fever, unusual tiredness, and dark colored urine. Some side effects may be more likely in older adults and in people who have severe kidney disease. Common side effects may include: headache; dizziness; or constipation or diarrhea. This is not a complete list of side effects and others may occur. Call your doctor for medical advice about side effects. You may report side effects to FDA at 9-295-UQO-4915. What other drugs will affect famotidine? Famotidine oral can make it harder for your body to absorb other medicines you take by mouth. Tell your doctor if you are taking: cefditoren; dasatinib; delavirdine; fosamprenavir; or tizanidine (if you are taking famotidine liquid). This list is not complete. Other drugs may affect famotidine, including prescription and zstf-tmn-qkozumd medicines, vitamins, and herbal products. Not all possible drug interactions are listed here. Where can I get more information? Your doctor or pharmacist can provide more information about famotidine. Remember, keep this and all other medicines out of the reach of children, never share your medicines with others, and use this medication only for the indication prescribed. Every effort has been made to ensure that the information provided by [employer]') is accurate, up-to-date, and complete, but no guarantee is made to that effect. Drug information contained herein may be time sensitive. [employer] information has been compiled for use by healthcare practitioners and consumers in the [place] and therefore [employer] does not warrant that uses outside of the [place] are appropriate, unless specifically indicated otherwise. [employer] drug information does not endorse drugs, diagnose patients or recommend therapy. [employer] drug information isan informational resource designed to assist licensed healthcare practitioners in caring for their p atients and/or to serve consumers viewing this service as a supplement to, and not a substitute for, the expertise, skill, knowledge and judgment of healthcare practitioners. The absence of a warningfor a given drug or drug combination in no way should be construed to indicate that the drug or drug combination is safe, effective or appropriate for any given patient. [employer] does not assume any responsibility for any aspect of healthcare administered with the aid of information [employer] provides. The information contained herein is not intended to cover all possible uses, directions, precautions, warnings, drug interactions, allergic reactions, or adverse effects. If you have questions about the drugs you are taking, check with your doctor, nurse or pharmacist. Copyright 5602-5049 [employer]. Version: .. Revision Date: 01/24/2023. prednisone (PRED ni sone) Callie What is the most important information I should know about prednisone? You should not use prednisone if you have a fungal infection anywhere in your body. You should not stop using prednisone suddenly. Follow your doctor's instructions about tapering your dose. What is prednisone? Prednisone is a steroid that reduces inflammation in the body, and also suppresses your immune system. Prednisone is used to treat many different conditions such as hormonal disorders, skin diseases, arthritis, lupus, psoriasis, allergic conditions, ulcerative colitis, Crohn's disease, eye diseases, lung diseases, asthma, tuberculosis, blood cell disorders, kidney disorders, leukemia, lymphoma, multi ple sclerosis, organ transplant rejection, swelling from a brain tumor or injury. Prednisone may also be used for purposes not listed in this medication guide. What should I discuss with my healthcare provider before taking prednisone? You should not use prednisone if you are allergic to it, or if you have a fungal infection anywherein your body. Steroid medication can weaken your immune system, making it easier for you to get an infection or worsening an infection you already have. Tell your doctor about any illness or infection you've had within the past several weeks. Tell your doctor if you have ever had: heart problems, high blood pressure, or a heart attack; glaucoma or cataracts; herpes infection of the eyes; past or present tuberculosis; a parasite infection that causes diarrhea (such as threadworms); any illness that causes diarrhea; underactive thyroid; diabetes; a stomach ulcer, diverticulitis; a colostomy or ileostomy; osteoporosis or low bone mineral density (steroid medication can increase your risk of bone loss); low levels of calcium or potassium in your blood; cirrhosis or other liver disease; mental illness or psychosis; or a muscle disorder such as myasthenia gravis. Long-term use of steroids may lead to bone loss (osteoporosis), especially if you smoke or drink alcohol, if you do not exercise, or if you do not get enough vitamin D or calcium in your diet. It is not known whether this medicine will harm an unborn baby. Tell your doctor if you are or plan to become . You should not breastfeed while using prednisone. How should I take prednisone? Follow all directions on your prescription label and read all medication guides or instruction sheets. Your doctor may occasionally change your dose. Use the medicine exactly as directed. Prednisone is taken daily or every other day, depending on the condition being treated. You may need to take the medicine at a certain time of day. Follow your doctor's instructions about when and how often to take this medicine. Take with food if prednisone upsets your stomach. Measure liquid medicine carefully. Use the dosing syringe provided, or use a medicine dose-measuring device (not a kitchen spoon). Swallow the delayed-release tablet whole and do not crush, chew, or break it. Prednisone can weaken (suppress) your immune system, and you may get an infection more easily. Callyour doctor if you have signs of infection (fever, weakness, cold or flu symptoms, skin sores, diarrhea, frequent or recurring illness). If you have major surgery or a severe injury or infection, your prednisone dose needs may change. Make sure any doctor caring for you knows you are using this medicine. If you use this medicine long-term, you may need medical tests and vision exams. In case of emergency, wear or carry medical identification to let others know you use a steroid. You should not stop using prednisone suddenly. Follow your doctor's instructions about tapering your dose. Store at room temperature away from moisture, heat, and light. What happens if I miss a dose? Take the medicine as soon as you can, but skip the missed dose if it is almost time for your next dose. Do not take two doses at one time. What happens if I overdose? Seek emergency medical attention or call the Poison Help line at . High doses or long-term use of prednisone can lead to thinning skin, easy bruising, changes in bodyfat (especially in your face, neck, back, and waist), increased acne or facial hair, menstrual problems, impotence, or loss of interest in sex. What should I avoid while taking prednisone? Do not receive a 'live' vaccine while using prednisone. The vaccine may not work as well and may not fully protect you from disease. Live vaccines include measles, mumps, rubella (MMR), polio, rotavirus, typhoid, yellow fever, varicella (chickenpox), zoster (shingles), and nasal flu (influenza) vaccine. Avoid being near people who are sick or have infections. Call your doctor for preventive treatment if you are exposed to chickenpox or measles. These conditions can be serious or even fatal in peoplewho are using steroid medicine. Avoid drinking alcohol. What are the possible side effects of prednisone? Get emergency medical help if you have signs of an allergic reaction: hives; difficult breathing; swelling of your face, lips, tongue, or throat. Call your doctor at once if you have: muscle pain or weakness; blurred vision, tunnel vision, eye pain, or seeing halos around lights; severe depression, changes in personality, unusual thoughts or behavior; bloody or tarry stools, coughing up blood or vomit that looks like coffee grounds; swelling, rapid weight gain, feeling short of breath; irregular heartbeats; severe headache, pounding in your neck or ears; decreased adrenal gland hormones--muscle weakness, tiredness, diarrhea, nausea, menstrual changes, skin discoloration, craving salty foods, and feeling light- headed; or low potassium level--leg cramps, constipation, irregular heartbeats, fluttering in your chest, increased thirst or urination, numbness or tingling, muscle weakness or limp feeling. Prednisone can affect growth in children. Tell your doctor if your child is not growing at a normalrate while using this medicine. Common side effects may include: weight gain (especially in your face or your upper back and torso); increased appetite; mood changes, trouble sleeping; changes in your menstrual periods; problems with memory or thought; muscle or joint pain; weakness; headache, dizziness, spinning sensation; nausea, bloating, loss of appetite; slow wound healing; or acne, increased sweating, thinning skin, bruising, pinpoint spots under your skin. This is not a complete list of side effects and others may occur. Call your doctor for medical advice about side effects. You may report side effects to FDA at 2-353-RQV-8107. What other drugs will affect prednisone? Sometimes it is not safe to use certain medications at the same time. Some drugs can affect your blood levels of other drugs you take, which may increase side effects or make the medications less effective. Tell your doctor about all your current medicines. Many drugs can affect prednisone, especially: bupropion; cyclosporine; digoxin; ketoconazole; an antibiotic; control pills or hormone replacement therapy; a diuretic or 'water pill'; insulin or oral diabetes medicine; a blood thinner--warfarin, Coumadin, Jantoven; or NSAIDs (nonsteroidal anti-inflammatory drugs)--aspirin, ibuprofen (Advil, Motrin), naproxen (Aleve), celecoxib, diclofenac, indomethacin, meloxicam, and others. This list is not complete and many other drugs may affect prednisone. This includes prescription and nzek-xfg-jxollfd medicines, vitamins, and herbal products. Not all possible drug interactions are listed here. Where can I get more information? Your pharmacist can provide more information about prednisone. Remember, keep this and all other medicines out of the reach of children, never share your medicines with others, and use this medication only for the indication prescribed. Every effort has been made to ensure that the information provided by [employer]. ('[employer]') is accurate, up-to-date, and complete, but no guarantee is made to that effect. Drug information contained herein may be time sensitive. [employer] information has been compiled for use by healthcare practitioners and consumers in the [place] and therefore [employer] does not warrant that uses outside of the [place] are appropriate, unless specifically indicated otherwise. [employer] drug information does not endorse drugs, diagnose patients or recommend therapy. [employer] drug information isan informational resource designed to assist licensed healthcare practitioners in caring for their p atients and/or to serve consumers viewing this service as a supplement to, and not a substitute for, the expertise, skill, knowledge and judgment of healthcare practitioners. The absence of a warningfor a given drug or drug combination in no way should be construed to indicate that the drug or drug combination is safe, effective or appropriate for any given patient. [employer] does not assume any responsibility for any aspect of healthcare administered with the aid of information [employer] provides. The information contained herein is not intended to cover all possible uses, directions, precautions, warnings, drug interactions, allergic reactions, or adverse effects. If you have questions about the drugs you are taking, check with your doctor, nurse or pharmacist. Copyright 6539-0009 [employer]. Version: 10.. Revision Date: 09/28/2018. Education Materials Angioedema Angioedema (DS-fyc-na-eh-NAILA-muh) is a sudden appearance of swollen patches (edema) on the skin or mucous membranes. It most often involves the face, lips, mouth, tongue, back of throat, or vocal cords. It may also occur in other places, such as the arms or legs. A rash may also appear during the first 4 days of this illness. There are different types of angioedema. Your symptoms will depend on what type of angioedema you have. Swelling and redness may be the main symptoms. Like allergic reactions, angioedema may include: Rash, hives, redness, welts, blisters Itching, burning, stinging, pain Dry, flaky, cracking, or scaly skin Swelling of the face, lips, tongue, or other parts of the body More severe symptoms may include: Trouble swallowing, or feeling like your throat is closing Trouble breathing or wheezing Hoarse voice or trouble speaking Nausea, vomiting, diarrhea, or stomach cramps Feeling faint or lightheaded, rapid heart rate, or low blood pressure Angioedema can be triggered by exposure to certain substances. Medical conditions involving the immune systems and certain infections may cause it. In rare cases, angioedema can be hereditary. Sometimes the cause may be very clear. However, it is often hard to find a cause. The most common causes include: Foods, such as shrimp, shellfish, peanuts, milk products, gluten, and eggs; also colorings, flavorings, and additives Insect bites or stings, from bees, mosquitos, fleas, or ticks Medicines, such as DIVINA inhibitors, penicillin, sulfa medicines, amoxicillin, aspirin, and ibuprofen Latex, which may be in gloves, clothes, toys, balloons, and some kinds of tape. People who are allergic to latex may have problems with foods such as bananas, avocados, kiwi, papaya, or chestnuts. Stress Heat, cold, or sunlight The most common cause of angioedema is a reaction to a class of medicines called DIVINA inhibitors. These are used to treat high blood pressure. DIVINA inhibitors include captopril, enalapril, and lisinopril. Angiodema can happen even after you have been taking the medicine for some time. Tell your doctor if you have angioedema symptoms and are taking any of these medicines. Angioedema may recur. It isimportant to watch for the earliest signs of this condition (see the list below). Contact your healthcare provider right away if swelling involves the face, mouth, or throat. Home care Rest quietly today. Don't do vigorous physical activity. Medicines: The healthcare provider may prescribe medicines for itching, swelling, or pain. Follow the healthcare provider s instructions when taking these medicines. Oral diphenhydramine is an antihistamine available without a prescription. Unless a prescription antihistamine was given, diphenhydramine may be used to reduce widespread itching. It may make you sleepy, so be careful using it when going to school, working, or driving. (Note: Do not use diphenhydramine if you have glaucoma or if you are a man who has trouble urinating due to an enlarged prostate.) Loratadine is an antihistamine that may cause less drowsiness. Don't use diphenhydramine cream on your skin. Some people can have an allergic reaction to this. Calamine lotion or oatmeal baths sometimes help with itching. You may use acetaminophen or ibuprofen for pain, unless another pain medicine was prescribed. If you were told that your angioedema was caused by a medicine you are taking, you must stop takingit. Ask your healthcare provider for a different one. In the future, advise medical staff that you are allergic to this medicine. If medicine was prescribed, such as steroids or antihistamines, be sure you understand what the medicine is and how to take it. General care Make sure you do not scratch areas of the body that had a reaction. This will help prevent infection. Stay away from air pollution, tobacco, and wood smoke. Also stay away from cold temperatures. Thesethings can make allergy symptoms worse. Try to find out what cause your reaction. Make sure to remove the allergen. Future reactions may beworse. If you have a serious allergy, wear a medical alert bracelet that notes this allergy. If the healthcare provider prescribed an epinephrine auto injector kit, keep it with you at all times. Tell all care providers about your allergy. Ask them h ow to use any prescribed medicines. Keep a record of allergies and symptoms, and when they occurred. This will help your provider treatyou over time. Follow-up care Follow up with your healthcare provider, or as advised. You may need to see an legal intern. An legal intern can help find the cause of an allergic reaction and give recommendations on how to prevent future reactions. Call 911 Call 911 right away if any of these occur: Trouble breathing or swallowing, or wheezing Hoarse voice or trouble speaking, or drooling Chest pain or tightness Confusion, lightheadedness, or dizziness Extreme drowsiness or trouble awakening Fainting or loss of consciousness Rapid heart rate Vomiting blood, or large amounts of blood in stool Seizure Nausea, vomiting, diarrhea, abdominal pain, or stomach cramps When to seek medical attention Call your healthcare provider right away if any of the following occur: Symptoms don't go away Symptoms come back Symptoms get worse or new symptoms develop Hives feel uncomfortable Fever of 100.4 F (38 C), or as directed by your healthcare provider [id number] [employer]. [address] [place] [address], [place] [address]. All rights reserved. This information is not intended as a substitute for professional medical care. Always follow yourhealthcare professional's instructions. Additional Information VACCINATE! IT SAVES LIVES! Members of the community who have not yet received the COVID-19 vaccine and would like to receive it can visit one of [facility] vaccine clinics. There are many vaccine clinic locations within the [facility]. For locations and available times, please visit [email or web address].[email or web address]/. It is important to note that some COVID mobile vaccine clinics are held outdoors and may be canceled in rainy or stormy conditions. To learn more about pediatric vaccinations (ages 5-11), we invite you to visit the [facility] webpage. [email or web address]/[email or web address] stions.htmlTo learn more about the COVID-19 vaccine, we invite you to visit the CDC website for a list of frequently asked questions. https://www.cdc.gov/coronavirus/2019-ncov/vaccines/faq.html [facility] Patient Portal Access Instructions: Stay connected with your healthcare team and access your personal medical information anytime with the [facility] Patient Portal. If you would like a full copy of your medical records please contact the [facility] Medical Records Department Tuesday through Tuesday between 8a.m. and 4:30p.m. Please follow the directions below to access the portal: 1.Access the email account you provided upon registration to the hospital.2.Look for an invitation email from [facility].3.Open the email and access the invitation link: Accept Invitation to [facility].Fill in the required mccollum to create your account. Sign into [email or web address] with your username and password that you created in the above steps to stay up to date. You can then view a summary of results, a summary of your visits, and the ability to download your summaries to your computer or send the information securely to a physician. Remember that your healthcare information is confidential, so carefully consider who you will allow to register on the [facility] Patient Portal for access to your information. You can also access the [facility] Patient Portal on the [employer]. Simply click on "Health Records" under "[facility]" and then click on the [employer] logo. HOW TO SAFELY DISPOSE OF PRESCRIPTION MEDICATIONS Please use one of the following methods to safely dispose of your unused medications. 1.Use a drug disposal kit: the drug disposal pouch allows you to safely discard your old and unuseddrugs. Ask your nurse to give you one when you are discharged.2.Visit a local take-back location: Many local pharmacies and police departments have programs that collect old and unwanted prescriptiondrugs. Call your local pharmacy or go to http://[email or web address]/4A9Cl4v to find one close to you.3.Make use of household items: Use cat litter or old coffee grounds to dispose medications if other options arenot available. Mix your drugs with these household products, seal them in an airtight container andthrow it into the garbage. Call [facility]: [phone] to be sure your drugs can be disposed of in this way. Some medicines may require a different approach.4.Never flush your medications down the toilet. IF YOU HAVE BEEN PRESCRIBED AN OPIOIDS FOR PAIN If you have been prescribed an opioid (such as hydrocodone, oxycodone or morphine), it is critical to understand the possible side effects and risks of opioid pain medications. Even when taken as directed, opioids can have several side effects including: Tolerance, meaning you might need to take more of a medication for the same pain relief. Nausea, vomiting and/or constipation. Sleepiness, dizziness, dry mouth, confusion, depression or itching. Physical dependence, meaning you have withdrawal symptoms when a medication is stopped ? this can develop within a few days. KNOW YOUR RESPONSIBILITIES It is important to know exactly how much and how often to take the opioid pain medications you are prescribed. Never take opioids in higher amounts or more often than prescribed. Do not combine opioids with alcohol or other drugs that cause drowsiness, such as benzodiazepines, also known as benzos,including diazepam and alprazolam, muscle relaxants or sleep aids. Never sell or share prescriptionopioids. This is illegal. Store opioids in a secure place and out of reach of others (including children, family, friends and visitors). The last page(s) of this document has been signed and retained as a CHART COPY Signatures Patient Education Materials Angioedema Medication Leaflets famotidine (oral/injection), prednisone My discharge plan and instructions have been reviewed and explained to me and I,GUADALUPE DAVIS understand my current condition and have read and understand these discharge instructions. I have received a written copy of the plan/instructions. If I have questions, I am aware that I should contactmy doctor. 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08-16-2023 Note Date of Service 02/16/2023 Chief Complaint Right knee pain Subjective Patient seen and evaluated this morning while resting in recliner. She states that she is having more pain today but feels that it is controlled on her oral pain medication. She has worked with therapy and is planning to work with them again this afternoon before going home. She denies any issues overnight including fever, chills, cough, shortness of breath, chest pain, abdominal pain, nausea or dysuria. Labs and vital signs reviewed and were within normal limits. Physical exam unremarkable. From hospitalist perspective, patient is medically optimized for discharge home today. All questions answered. Objective Vitals and Measurements T: 36.7 C (Oral) TMIN: 36.5 C (Oral) TMAX: 36.9 C (Oral) HR: 60(Monitored) RR: 18 BP: 108/43 SpO2: 94% Intake and Output 7AM Yesterday to 7AM Today Intake and Output (Last 24 hours) Intake Oral Intake 660.00 Supplement Intake 480.00 Output Urine Count 4.00 Total Summary Total Intake 1140.00 Total Output 0.00 Fluid Balance 1140.00 Physical Exam General: No acute distress. Patient is alert and appropriate. Skin: No rash. Skin is warm, dry and intact. HEENT: Head is normocephalic, atraumatic. Pupils are equal, round and reactive. Neck: Supple. No lymphadenopathy, thyromegaly. Lungs: Bilaterally clear but diminished without crepitation or wheeze. Unlabored. Heart: Heart is regular rhythm, S1, S2. No murmurs, gallops or rubs. Abdomen: Abdomen is soft, nontender. Bowels sounds present in all quadrants. Extremities: No clubbing, cyanosis, or edema. Peripheral pulses palpable. No calf tenderness. Rightknee surgical dressing is dry and intact. Neurological: Patient is awake and alert to person, place and time. Following simple commands, moving all extremities. Weight Dosing Weight: 121.8 kg (02/15/23) Dosing Weight: 121.8 kg (02/15/23) Medications Medications (25) Active Scheduled: (14) acetaminophen 500 mg Tablet 1,000 mg 2 tab(s), Oral, q6hr atorvastatin 10 mg tablet 10 mg 1 tab(s), Oral, qDay dexamethasone 10 mg/mL (1mL) SDV 10 mg 1 mL, IV Push, AsDirected docusate sodium 100 mg Capsule 100 mg 1 cap(s), Oral, BID docusate-senna (Senokot S) 50 mg-8.6 mg Tablet 2 tab(s), Oral, BID doxycycline hyclate 100 mg Capsule 100 mg 1 cap(s), Oral, q12h famotidine 20 mg tablet 20 mg 1 tab(s), Oral, qDay insulin lispro 100 units/mL Soln (3 mL) Give 0-5 units/dose, Subcutaneous, TIDAC magnesium hydroxide 8% Suspension 30 mL UD 30 mL, Oral, Daily meloxicam 7.5 mg tablet 7.5 mg 1 tab(s), Oral, BIDM metoprolol succinate 50 mg ER tablet 50 mg 1 tab(s), Oral, qDayM multivitamin (Myadec) with minerals Therapeutic Multiple Vitamins with Minerals Tablet 1 tab(s), Oral, qDayM rivaroxaban 20 mg tablet 20 mg 1 tab(s), Oral, with supper sertraline 50 mg tablet 50 mg 1 tab(s), Oral, qDay Continuous: (0) PRN: (11) acetaminophen 325 mg Tablet 650 mg 2 tab(s), Oral, q4h diphenhydramine 25 mg tablet 25 mg 1 tab(s), Oral, q6h diphenhyDRAMINE 50 mg/mL (1 mL) INJ 25 mg 0.5 mL, IV Push, q6h ketorolac 30 mg/mL (1 mL) vial 15 mg 0.5 mL, IV Push, q6h melatonin 3 mg tablet 3 mg 1 tab(s), Oral, qHS morphine 2 mg/mL 1 mL syringe 2 mg 1 mL, IV Push, q1h ondansetron 2 mg/ 1 mL 2 mL INJ 4 mg 2 mL, IV Push, q8h oxycodone 5 mg tablet (immediate release) 5 mg 1 tab(s), Oral, q4h oxycodone 5 mg tablet (immediate release) 10 mg 2 tab(s), Oral, q4h prochlorperazine 10 mg/2 mL vial 5 mg 1 mL, IV Push, q6h sodium biphosphate-sodium phosphate 19 gm-7 gm Enema 133 mL, Rectal, qDay Lab Results 02/16 05:13 WBC: 10.4 Hgb: 10.6 L Hct: 31.1 L Platelet: 235 Neutrophil %: 77.6 Glucose Level: 139 H Sodium Level: 139 Potassium Level: 4.2 BUN: 19 H Creatinine Lvl (s): 0.84 Imaging Results and Diagnostics XR Knee 1 or 2 Views Right Result Date: February 15, 2023 Verified By: MATTHEW PEÑA MD CLINICAL STATEMENT: IMPRESSION: Arthroplasty with immediate postoperative changes. EKG No qualifying data available. Assessment/Plan 1. Osteoarthritis Chronic, s/p right knee arthroplasty *POD # 1. *Management per primary team. *Continue PO pain medication and antiemetics. 2. Atrial fibrillation and flutter Chronic, rate controlled *Continue metoprolol at current dose with parameters. *Resume Xarelto when cleared by primary team. 3. Diabetes mellitus Chronic *Blood sugar checks before meals and at bedtime. *Cover with sliding scale insulin. *Continue diabetic diet as tolerated. *Blood sugar goal 180 or less and avoid hypoglycemia. *Patient states she is not currently on medication at home for diabetes. 4. Sleep apnea Chronic *May use own home CPAP at bedtime. Patient seen and evaluated this morning while resting in bed. Physical exam was unremarkable. Lab results and vital signs trends reviewed and were stable. From hospitalist perspective, patient is medically optimized for discharge home today. Hospitalist service will sign-off at this time. Please feel free to re- consult service if there are any changes in condition. Thank you for including hospitalist service in the care of your patient! DVT prophylaxis with Xarelto. Code status: Full Code. Labs, diagnostic test and progress notes reviewed as noted in HPI. Plan of care discussed with patient. All questions answered. Patient verbalizes understanding and is agreeable with plan of care. This case was discussed with collaborating physician, Dr. Joshua Walker. Time Spent 35 minutes spent reviewing past diagnostic tests, reviewing lab results, vital sign trends, medicalhistory, reviewing medications, discussing plan of care with nursing, group social worker, and therapy,examining patient, collaborating with physician, and documenting in chart. Digitally Signed by CRISTA LEAHY on 02/16/2023 03:[address] [facility]08-16-2023 Note Discharge Instructions Thank you for allowing [facility] to assist you with your healthcare needs. The following is importantdischarge information regarding your hospital visit. Your Care Team Dr. Amin Your Diagnosis Atrial fibrillation and flutter Diabetes mellitus Osteoarthritis Sleep apnea Status post total right knee replacement What to do next Scheduled Follow-Up Appointments Appointment Type When Where Contact InformationPT Outpatient Evaluation 02/18/2023 02:30 PM EDT [facility] [phone] Follow Up Appointments Follow Up with SWATI DIAZ PA-C, Orthopedic When 02/28/2023 03:15 PM EDT Why: This is your post-op appointment. Follow-up as scheduled. Where: [facility] [address] [place] [id number] Follow Up with [facility] When 02/18/2023 02:30 PM EDT Why: This is your first physical therapy appointment. Follow-up as scheduled. Where: [address] [place] [phone] The Following Activity and Diet Have Been Ordered for You No changes were made to your diet. Activity: Weight bearing as tolerated. The Following Treatments Have Been Ordered for You Discharge Labs No qualifying data available. Discharge Radiology No qualifying data available. Other Therapies No qualifying data available. Post Acute Orders No qualifying data available. Allergies Neosporin bacitracin (Cephalexin, Polymyxins) cephalexin neomycin Medications Please ask your primary doctor or pharmacist before taking any other medication not listed, including over the counter drugs, herbal medications, vitamins and or supplements as they may interact withyour home medications. What How Much When Why Instructions Last Dose New acetaminophen (acetaminophen 500 mg oral tablet) 2 tab(s) by mouth Three (3) times a day as needed for as needed for pain Duration: 14 Days not to exceed 3000 mg/ day Pickup at [facility]/pharmacy #[id number] 02/15/23 at 2:30pm New docusate-senna (Senokot S 50 mg-8.6 mg oral tablet) 2 tab(s) by mouth Two (2) times a day Duration: 3 Days Take until first bowel movement, then as needed [id number] 02/[facility]/23 at 0825am New doxycycline (doxycycline hyclate 100 mg oral capsule) 1 cap by mouth Every 12 hours Duration: 14 Days [id number] 02/15/23 at 0825am New oxyCODONE (oxyCODONE 5 mg oral tablet ( IMMEDIATE release )) See instructions Status post total right knee replacement 1-2 tab(s) Oral q4h Pickup at [facility]/pharmacy #[id number] 02/15/23 at 12:37pm Unchanged atorvastatin (atorvastatin 10 mg oral tablet) 1 tab(s) by mouth Once a day none today Unchanged cholecalciferol (Vitamin D3) 25 Microgram by mouth Every 12 hours 02/15/23 at 0825am Unchanged magnesium oxide (Magnesium 250 mg tablet) 2 tab(s) by mouth Once a day none today Unchanged melatonin (melatonin 5 mg oral tablet) 1 tab(s) by mouth Daily at bedtime as needed for as needed for insomnia none today Unchanged metoprolol (Toprol-XL 50 mg oral tablet, extended release) 1 tab(s) by mouth Once a day with a meal Duration: 30 Days 02/15/23 at 0825am Unchanged multivitamin (Multivitamin) 1 tab(s) by mouth Every day 02/15/23 at 11:47am Unchanged rivaroxaban (Xarelto) 20 Milligram by mouth Once a day (in the evening) start tonight Unchanged sertraline (sertraline 50 mg oral tablet) 1 tab(s) by mouth Once a day 02/15/23 at 0825 Unchanged vitamin E (vitamin E 400 intl units oral capsule) 1 cap by mouth Every day none today Pharmacy Information [facility]/pharmacy #[id number]: [address], [place] [id number] [phone] Please take this list to your next doctor s visit. Bring all medications you take, including over the counter medications, herbals and other supplements with you to your doctor s visit. Patients and families are reminded to discard old lists and to update any records with all medication providers or retail pharmacies. Education Materials [facility] Post-operative Instructions PLEASE FOLLOW [facility] POST-OP INSTRUCTIONS GIVEN WATCH FOR SIGNS OF INFECTION: call the office ([phone]) if experencing any of the following: (Usually appears 36-48 hours after surgery) Increased temperature (101 degrees Fahrenheit or higher) Redness or swelling Increased uncontrolled pain Foul odor or drainage Calf discomfort Significant swelling Or if having any chest pain, shortness of breath, or difficulty breathing or swallowing call the office or go the nearest Emergency Room. If you have any questions, please call your doctor at the number listed on your follow up instructions. Form: 338A ([id number]) R: 11/07 Additional Information VACCINATE! IT SAVES LIVES! Members of the community who have not yet received the COVID-19 vaccine and would like to receive it can visit one of [facility] vaccine clinics. There are many vaccine clinic locations within the [facility]. For locations and available times, please visit [email or web address].[place].gov/. It is important to note that some COVID mobile vaccine clinics are held outdoors and may be canceled in rainy or stormy conditions. To learn more about pediatric vaccinations (ages 5-11), we invite you to visit the [facility] webpage. [email or web address].[email or web address]/[email or web address]-Jiuksgfhfll-Bteqtylbql-[email or web address]-[email or web address] stions.htmlTo learn more about the COVID-19 vaccine, we invite you to visit the CDC website for a list of frequently asked questions.https://www.cdc.gov/coronavirus/2019-ncov/vaccines/faq.html [facility] Patient Portal Access Instructions: Stay connected with your healthcare team and access your personal medical information anytime with the [facility] Patient Portal. Please follow the directions below to create your [facility] account: 1.Access the email account you provided upon registration to the hospital/physician office.2.Look for an invitation email from [facility].3.Open the email and access the invitation link: AcceptInvitation to [facility].4.Fill in the required mccollum to create your account. To access your account, visit [email or web address]. Click the blue button labeled "Access Patient Portal" and then log in with the username and password that you created in the steps above. You will be able to view your test results, lab results, a summary of your visits, upcoming appointments and more. There is also a convenient messaging option where you can send secure messages to your p rovider. In addition, you will have the ability to download any documents or summaries to your computer and/or send the information securely to a physician. Remember that your healthcare information is confidential, so carefully consider who you will allowto register on the [facility] Patient Portal for access to your information. You can also access the [facility] Patient Portal on the [facility] alex. Simply click on "Patient Portal" and then log into your account. If you would like to receive a full copy of your medical records, please contact the [facility] Medical Records Department by calling [phone], Tuesday through Tuesday between 8 a.m. and 4:30 p.m. HOW TO SAFELY DISPOSE OF PRESCRIPTION MEDICATIONS Please use one of the following methods to safely dispose of your unused medications. 1.Use a drug disposal kit: the drug disposal pouch allows you to safely discard your old and unuseddrugs. Ask your nurse to give you one when you are discharged.2.Visit a local take-back location: Many local pharmacies and police departments have programs that collect old and unwanted prescriptiondrugs. Call your local pharmacy or go to http://[employer]/3B1Sf1z to find one close to you.3.Make use of household items: Use cat litter or old coffee grounds to dispose medications if other options arenot available. Mix your drugs with these household products, seal them in an airtight container andthrow it into the garbage. Call [facility]: [phone] to be sure your drugs can be disposed of in this way. Some medicines may require a different approach.4.Never flush your medications down the toilet. IF YOU HAVE BEEN PRESCRIBED AN OPIOID FOR PAIN If you have been prescribed an opioid (such as hydrocodone, oxycodone or morphine), it is critical to understand the possible side effects and risks of opioid pain medications. Even when taken as directed, opioids can have several side effects including: Tolerance, meaning you might need to take more of a medication for the same pain relief. Nausea, vomiting and/or constipation. Sleepiness, dizziness, dry mouth, confusion, depression or itching. Physical dependence, meaning you have withdrawal symptoms when a medication is stopped, can develop within a few days. KNOW YOUR RESPONSIBILITIES It is important to know exactly how much and how often to take the opioid pain medications you are prescribed. Never take opioids in higher amounts or more often than prescribed. Do not combine opioids with alcohol or other drugs that cause drowsiness, such as benzodiazepines, also known as benzos, including diazepam and alprazolam, muscle relaxants or sleep aids. Never sell or share prescription opioids. This is illegal. Store opioids in a secure place and out of reach of others (including children, family, friends and visitors). The last page of this document has been signed and retained as a CHART COPY. Signatures Patient Education Materials Kenn Sandoval Post-op Instruction 02/2017 ([id number]) Medication Leaflets My discharge plan and instructions have been reviewed and explained to me and IHUSSAIN BELINDA G understand my current condition and have read and understand these discharge instructions. I have received a written copy of the plan/instructions. If I have questions, I am aware that I should contactmy doctor. 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08-16-2023 Hospital Discharge instructions Patient Education 02/16/2023 07:17:40 5 - [facility] Post-op Instruction 02/2017 ([id number]) [facility] Post-operative Instructions PLEASE FOLLOW [facility] POST-OP INSTRUCTIONS GIVEN WATCH FOR SIGNS OF INFECTION: call the office ([phone]) if experencing any of the following: (Usually appears 36-48 hours after surgery) Increased temperature (101 degrees Fahrenheit or higher) Redness or swelling Increased uncontrolled pain Foul odor or drainage Calf discomfort Significant swelling Or if having any chest pain, shortness of breath, or difficulty breathing or swallowing call the office or go the nearest Emergency Room. If you have any questions, please call your doctor at the number listed on your follow up instructions. Form: 338A ([id number]) R: 11/07 Follow Up Care 12/27/2022 14:44:47 With:[facility] Address: [address] [place] [phone] When:02/18/2023 14:30:00 Comments:This is your first physical therapy appointment. Follow-up as scheduled. With:SWATI DIAZ PA-C, Orthopedic Address: [facility] [address] [place] [phone]- When:02/28/2023 15:15:00 Comments:This is your post-op appointment. Follow-up as scheduled. [facility] 08-16-2023 Note Date of Service February 16, 2023 Subjective The patient was sitting in bed upon examination. Patient denies any chest pain, shortness of breath, dizziness, lightheadedness, nausea or vomiting, or calf pain. No adverse overnight events. Pain has been controlled on medications. Patient states yesterday her pain was worse but today she is doingbetter. She is currently using CPAP for sleep apnea. Patient also takes Xarelto for atrial fibrillation. Denies past history of DVT or pulmonary embolism. She appears to be in no distress this morning. Patient is planning on discharge home when ready and has outpatient physical therapy established. Objective Vitals and Measurements T: 36.6 C (Oral) TMIN: 36.0 C (Temporal Artery) TMAX: 36.9 C (Oral) HR: 61(Monitored) RR: 18 BP: 111/57 SpO2: 93% HT: 168 cm WT: 121.8 kg BMI: 43.15 Intake and Output 7AM Yesterday to 7AM Today Intake and Output (Last 24 hours) Intake Administration Information 1261.42 Oral Intake 660.00 Supplement Intake 240.00 Output Intra-Op EBL 50.00 Urine Count 2.00 Total Summary Total Intake 2161.42 Total Output 50.00 Fluid Balance 2111.42 Physical Exam Vital signs stable, afebrile. Currently using CPAP overnight SCDs and CAR hose are in place bilaterally Patient is able to plantarflex and dorsiflex actively Sensation is intact to saphenous, sural, superficial and deep peroneal, and tibial distribution Mepilex dressing has quarter size drainage over the distal one third with remaining dressing clean dry and intact Negative signs and symptoms of DVT, negative Homans bilaterally Weight Dosing Weight: 121.8 kg (02/15/23) Dosing Weight: 121.8 kg (02/15/23) Medications Medications (26) Active Scheduled: (15) acetaminophen 500 mg Tablet 1,000 mg 2 tab(s), Oral, q6hr atorvastatin 10 mg tablet 10 mg 1 tab(s), Oral, qDay bisacodyl 5 mg EC tablet 10 mg 2 tab(s), Oral, Once dexamethasone 10 mg/mL (1mL) SDV 10 mg 1 mL, IV Push, AsDirected docusate sodium 100 mg Capsule 100 mg 1 cap(s), Oral, BID docusate-senna (Senokot S) 50 mg-8.6 mg Tablet 2 tab(s), Oral, BID doxycycline hyclate 100 mg Capsule 100 mg 1 cap(s), Oral, q12h famotidine 20 mg tablet 20 mg 1 tab(s), Oral, qDay insulin lispro 100 units/mL Soln (3 mL) Give 0-5 units/dose, Subcutaneous, TIDAC magnesium hydroxide 8% Suspension 30 mL UD 30 mL, Oral, Daily meloxicam 7.5 mg tablet 7.5 mg 1 tab(s), Oral, BIDM metoprolol succinate 50 mg ER tablet 50 mg 1 tab(s), Oral, qDayM multivitamin (Myadec) with minerals Therapeutic Multiple Vitamins with Minerals Tablet 1 tab(s), Oral, qDayM ondansetron 2 mg/ 1 mL 2 mL INJ 4 mg 2 mL, IV Push, q8h sertraline 50 mg tablet 50 mg 1 tab(s), Oral, qDay Continuous: (0) PRN: (11) acetaminophen 325 mg Tablet 650 mg 2 tab(s), Oral, q4h diphenhydramine 25 mg tablet 25 mg 1 tab(s), Oral, q6h diphenhyDRAMINE 50 mg/mL (1 mL) INJ 25 mg 0.5 mL, IV Push, q6h ketorolac 30 mg/mL (1 mL) vial 15 mg 0.5 mL, IV Push, q6h melatonin 3 mg tablet 3 mg 1 tab(s), Oral, qHS morphine 2 mg/mL 1 mL syringe 2 mg 1 mL, IV Push, q1h ondansetron 2 mg/ 1 mL 2 mL INJ 4 mg 2 mL, IV Push, q8h oxycodone 5 mg tablet (immediate release) 5 mg 1 tab(s), Oral, q4h oxycodone 5 mg tablet (immediate release) 10 mg 2 tab(s), Oral, q4h prochlorperazine 10 mg/2 mL vial 5 mg 1 mL, IV Push, q6h sodium biphosphate-sodium phosphate 19 gm-7 gm Enema 133 mL, Rectal, qDay Lab Results 02/16 05:13 WBC: 10.4 Hgb: 10.6 L Hct: 31.1 L Platelet: 235 Neutrophil %: 77.6 Glucose Level: 139 H Sodium Level: 139 Potassium Level: 4.2 BUN: 19 H Creatinine Lvl (s): 0.84 EKG No qualifying data available. Assessment/Plan Atrial fibrillation and flutter Diabetes mellitus Osteoarthritis Sleep apnea 1. Status post right total knee arthroplasty postop day #1 2. Continue pain medications: Tylenol and oxycodone. I also discussed with the patient serotonin syndrome as she is taking sertraline at home. She was inquiring about stopping her antidepressant. I did recommend that she contact her primary care physician to discuss this. 3. DVT prophylaxis: Patient will resume her Xarelto 20 mg as prescribed for atrial fibrillation. This will cover her for DVT prophylaxis postoperatively. 4. Physical therapy: Weightbearing as tolerated with walker. Appreciate recommendations about discharge planning today 5. Lab work has been reviewed and patient is currently stable. Patient has had a drop in hemoglobinmost likely secondary to surgical blood loss versus dilution. She is currently asymptomatic. No current need for treatment. 6. Continue antibiotics while following cultures: Patient will continue with doxycycline for 2 weeks postoperatively due to elevated BMI greater than 40.0. I discussed with the patient potential sideeffects with the doxycycline including hypersensitivity to the sunlight and must take appropriate precautions. Also recommended probiotic while taking the antibiotic for 2 weeks postoperatively. Patient voiced understanding and agreement. 7. Encouraged incentive spirometry 8. Continue postoperative medical management per medicine 9. Disposition: Plan will be for probable discharge home today as long as patient is medically stable, tolerates therapy, and pain is controlled on medications. Postoperative course of treatment was discussed in detail with the patient today. She would like her prescriptions E scribed to [facility] in [facility]. She has outpatient physical therapy established to begin on February 18, 2023. She will follow-up per postoperative instructions. Upon discharge patient will contact her office if having anyconcerns or questions. I have reviewed the [place] Automated Rx Reporting System (OARRS) report for this patient for refill pattern and other prescriber involvement as part of the appropriate surveillance for the provision ofacute and chronic controlled medications. The report was requested and reviewed on the date of thisentry, and was considered in the prescribing process This dictation was created using voice recognition software. Phonetic and/or grammatical errors mayexist. Digitally Signed by SWATI DIAZ PA-C on 02/16/2023 07:[address] [facility]08-15-2023 Note ORIGINAL HISTORY: Arthroplasty COMPARISON: No FINDINGS: There is an arthroplasty in near anatomic alignment. There is no radiographic evidence of loosening or failure of hardware. There is gas in the soft tissues and the joint space. There are skin david. IMPRESSION: Arthroplasty with immediate postoperative changes. Interpreted by: Matthew Peña MD Preliminary Report By: Matthew Peña MD Electronically signed By Matthew Peña MD Dictated Date: 02/15/2023 10:49:25 AM Prelim Date: 02/15/2023 10:50:02 AM Sign Date: 02/15/2023 10:50:02 AM Ordering Provider: [facility]08-15-2023 Anesthesiology Consult note Patient: GUADALUPE DAVIS Age: 67 years Sex: Female : 1955 Associated Diagnoses: None Author: DARYN PLUMMER WILDLIFE BIOLOGY TECHNICIAN-SCOURING PADS SUPERVISOR Assessment Postanesthesia assessment Vitals: Vital signs from flowsheet : Vital Signs 02/15/2023 9:40 EDT Respiratory Rate - Anes 0 br/min br/min 02/15/2023 9:35 EDT Heart Rate Monitored 80 bpm bpm Respiratory Rate - Anes 11 br/min br/min Systolic Blood Pressure Non-Invasive 127 mmHg mmHg Diastolic Blood Pressure Non-Invasive 57 mmHg mmHg 02/15/2023 9:30 EDT Temperature (Route Not Specified) 36 DegC DegC Heart Rate Monitored 82 bpm bpm Respiratory Rate - Anes 11 br/min br/min 02/15/2023 9:25 EDT Heart Rate Monitored 80 bpm bpm Respiratory Rate - Anes 5 br/min br/min Systolic Blood Pressure Non-Invasive 107 mmHg mmHg Diastolic Blood Pressure Non-Invasive 69 mmHg mmHg 02/15/2023 9:21 EDT Systolic Blood Pressure Non-Invasive 96 mmHg mmHg Diastolic Blood Pressure Non-Invasive 48 mmHg mmHg 02/15/2023 9:20 EDT Heart Rate Monitored 77 bpm bpm Respiratory Rate - Anes 9 br/min br/min Systolic Blood Pressure Non-Invasive 87 mmHg mmHg Diastolic Blood Pressure Non-Invasive 45 mmHg mmHg 02/15/2023 9:15 EDT Temperature (Route Not Specified) 36 DegC DegC Heart Rate Monitored 75 bpm bpm Respiratory Rate - Anes 10 br/min br/min Systolic Blood Pressure Non-Invasive 93 mmHg mmHg Diastolic Blood Pressure Non-Invasive 37 mmHg mmHg 02/15/2023 9:10 EDT Heart Rate Monitored 73 bpm bpm Respiratory Rate - Anes 13 br/min br/min Systolic Blood Pressure Non-Invasive 100 mmHg mmHg Diastolic Blood Pressure Non-Invasive 37 mmHg mmHg 02/15/2023 9:05 EDT Heart Rate Monitored 74 bpm bpm Respiratory Rate - Anes 12 br/min br/min Systolic Blood Pressure Non-Invasive 104 mmHg mmHg Diastolic Blood Pressure Non-Invasive 49 mmHg mmHg 02/15/2023 9:01 EDT Systolic Blood Pressure Non-Invasive 102 mmHg mmHg Diastolic Blood Pressure Non-Invasive 53 mmHg mmHg 02/15/2023 9:00 EDT Temperature (Route Not Specified) 36 DegC DegC Heart Rate Monitored 77 bpm bpm Respiratory Rate - Anes 14 br/min br/min 02/15/2023 8:55 EDT Heart Rate Monitored 78 bpm bpm Respiratory Rate - Anes 12 br/min br/min Systolic Blood Pressure Non-Invasive 101 mmHg mmHg Diastolic Blood Pressure Non-Invasive 58 mmHg mmHg 02/15/2023 8:50 EDT Heart Rate Monitored 77 bpm bpm Respiratory Rate - Anes 8 br/min br/min Systolic Blood Pressure Non-Invasive 80 mmHg mmHg Diastolic Blood Pressure Non-Invasive 58 mmHg mmHg 02/15/2023 8:45 EDT Temperature (Route Not Specified) 36 DegC DegC Heart Rate Monitored 78 bpm bpm Respiratory Rate - Anes 13 br/min br/min Systolic Blood Pressure Non-Invasive 103 mmHg mmHg Diastolic Blood Pressure Non-Invasive 61 mmHg mmHg 02/15/2023 8:40 EDT Heart Rate Monitored 77 bpm bpm Respiratory Rate - Anes 6 br/min br/min Systolic Blood Pressure Non-Invasive 108 mmHg mmHg Diastolic Blood Pressure Non-Invasive 47 mmHg mmHg 02/15/2023 8:35 EDT Heart Rate Monitored 81 bpm bpm Respiratory Rate - Anes 19 br/min br/min Systolic Blood Pressure Non-Invasive 123 mmHg mmHg Diastolic Blood Pressure Non-Invasive 101 mmHg mmHg 02/15/2023 8:30 EDT Temperature (Route Not Specified) 36 DegC DegC Heart Rate Monitored 85 bpm bpm Respiratory Rate - Anes 16 br/min br/min Systolic Blood Pressure Non-Invasive 125 mmHg mmHg Diastolic Blood Pressure Non-Invasive 52 mmHg mmHg 02/15/2023 8:25 EDT Heart Rate Monitored 85 bpm bpm Respiratory Rate - Anes 17 br/min br/min Systolic Blood Pressure Non-Invasive 147 mmHg mmHg Diastolic Blood Pressure Non-Invasive 127 mmHg mmHg 02/15/2023 8:20 EDT Heart Rate Monitored 84 bpm bpm Respiratory Rate - Anes 16 br/min br/min Systolic Blood Pressure Non-Invasive 131 mmHg mmHg Diastolic Blood Pressure Non-Invasive 76 mmHg mmHg 02/15/2023 8:15 EDT Heart Rate Monitored 88 bpm bpm Respiratory Rate - Anes 0 br/min br/min Systolic Blood Pressure Non-Invasive 126 mmHg mmHg Diastolic Blood Pressure Non-Invasive 65 mmHg mmHg 02/15/2023 8:10 EDT Heart Rate Monitored 89 bpm bpm Respiratory Rate - Anes 0 br/min br/min Systolic Blood Pressure Non-Invasive 113 mmHg mmHg Diastolic Blood Pressure Non-Invasive 54 mmHg mmHg 02/15/2023 8:05 EDT Respiratory Rate - Anes 0 br/min br/min 02/15/2023 8:00 EDT Respiratory Rate - Anes 0 br/min br/min 02/15/2023 6:52 EDT Temperature Temporal Artery 36.2 DegC Apical Heart Rate 71 bpm Respiratory Rate 19 br/min Systolic Blood Pressure Non-Invasive 135 mmHg Diastolic Blood Pressure Non-Invasive 77 mmHg , Measurements from flowsheet . Mental status: at preoperative baseline. Respiratory function: respirations are non-labored. Respiratory support: none. CV function: Normal rate. Cardiovascular support: none. Pain. Nausea status: see nursing documentation of medications. Postoperative hydration status: within normal limits. Digitally Signed by DARYN PLUMMER on 02/15/2023 09:[address] [facility]08-15-2023 Anesthesiology Consult note Patient: GUADALUPE DAVIS Age: 67 years Sex: Female : 1955 Associated Diagnoses: None Author: DARYN PLUMMER Preoperative Information Time of last food or liquid consumption: 02/15/2023 00:00:00 Anesthesia history Patient's history: negative. Family's history: negative. Health Status Allergies: Allergic Reactions (Selected) Severity Not Documented Bacitracin- Polymyxins and cephalexin. Cephalexin- No reactions were documented. Neomycin- No reactions were documented. Neosporin- No reactions were documented., Allergies (4) ActiveReaction bacitracinCephalexin cephalexinNone Documented neomycinNone Documented NeosporinNone Documented Current medications: (Selected) Inpatient Medications Ordered Decadron: 10 mg, 1 mL, IV Push, AsDirected LR 1,000 mL: 20 mL/hr, Intravenous, Stop: 02/15/23 23:59:00 EDT Prescriptions Prescribed Toprol-XL 50 mg oral tablet, extended release: 50 mg, 1 tab(s), Oral, qDayM, for 30 day(s), 30 tab(s), 1 Refill(s) Documented Medications Documented Magnesium 250 mg tablet: 500 mg, 2 tab(s), Oral, qDay, 0 Refill(s) Multivitamin: 1 tab(s), Oral, Daily Vitamin D3: 25 mcg, 1 tab(s), Oral, q12h, 0 Refill(s) Xarelto: 20 mg, Oral, qPM atorvastatin 10 mg oral tablet: 10 mg, 1 tab(s), Oral, qDay, 30 tab(s), 0 Refill(s) melatonin 5 mg oral tablet: 5 mg, 1 tab(s), Oral, qHS, PRN: as needed for insomnia, 60 tab(s), 0 Refill(s) sertraline 50 mg oral tablet: 50 mg, 1 tab(s), Oral, qDay, 30 tab(s), 0 Refill(s), Medications (2) Active Scheduled: (1) dexamethasone 10 mg/mL (1mL) SDV 10 mg 1 mL, IV Push, AsDirected Continuous: (1) Lactated Ringers 1,000 mL 1,000 mL, Intravenous, 20 mL/hr PRN: (0) Problem list: Active Problems (7) Atrial fibrillation and flutter Bradycardia Diabetes mellitus Hyperlipidemia Neuropathy Osteoarthritis Sleep apnea Histories Past Medical History: No active or resolved past medical history items have been selected or recorded. Family History: Breast cancer Mother Stroke Daughter Diabetes Father Sister Procedure history: Implantation of cardiac pacemaker ([id number]) on 09/07/2022 at 66 Years. Comments: 09/07/2022 14:38 April Osuna RN Dual chamber pacemaker implanted by Dr. Hu on 09/07/2022 at [facility]. Pacemaker generator is a [employer] Assurity MRI model #TI3454, serial #[id number]. RA lead is a [employer] Tendril STS model #2088TC/52cm, serial #[id number]. RV lead is a [employer] Tendril STS model #2088TC/58cm, serial #[id number]. Ablation ([id number]). Cardioversion ([id number]). Hysterectomy ([id number]). Cholecystectomy (01007773). Appendectomy ([id number]). Social History Social & Psychosocial Habits Alcohol 02/15/2023 Use: Current Frequency: 1-2 times per year Substance Abuse 02/15/2023 Use: Never Tobacco 02/15/2023 Tobacco Use: Former smoker, quit more Home/Environment 02/15/2023 Domestic Concerns None Lives In Single level home Current Home Treatments Blood Glucose monitoring, CPAP Spouse Name JONI Marital Status of Patient if Patient Independent Adult: Nutrition/Health 02/15/2023 Type of diet: Regular Eating Difficulties Swallowing . Physical Examination Vital Signs 02/15/2023 8:35 EDT Heart Rate Monitored 81 bpm bpm Respiratory Rate - Anes 19 br/min br/min Systolic Blood Pressure Non-Invasive 123 mmHg mmHg Diastolic Blood Pressure Non-Invasive 101 mmHg mmHg 02/15/2023 8:30 EDT Temperature (Route Not Specified) 36 DegC DegC Heart Rate Monitored 85 bpm bpm Respiratory Rate - Anes 16 br/min br/min Systolic Blood Pressure Non-Invasive 125 mmHg mmHg Diastolic Blood Pressure Non-Invasive 52 mmHg mmHg 02/15/2023 8:25 EDT Heart Rate Monitored 85 bpm bpm Respiratory Rate - Anes 17 br/min br/min Systolic Blood Pressure Non-Invasive 147 mmHg mmHg Diastolic Blood Pressure Non-Invasive 127 mmHg mmHg 02/15/2023 8:20 EDT Heart Rate Monitored 84 bpm bpm Respiratory Rate - Anes 16 br/min br/min Systolic Blood Pressure Non-Invasive 131 mmHg mmHg Diastolic Blood Pressure Non-Invasive 76 mmHg mmHg 02/15/2023 8:15 EDT Heart Rate Monitored 88 bpm bpm Respiratory Rate - Anes 0 br/min br/min Systolic Blood Pressure Non-Invasive 126 mmHg mmHg Diastolic Blood Pressure Non-Invasive 65 mmHg mmHg 02/15/2023 8:10 EDT Heart Rate Monitored 89 bpm bpm Respiratory Rate - Anes 0 br/min br/min Systolic Blood Pressure Non-Invasive 113 mmHg mmHg Diastolic Blood Pressure Non-Invasive 54 mmHg mmHg 02/15/2023 8:05 EDT Respiratory Rate - Anes 0 br/min br/min 02/15/2023 8:00 EDT Respiratory Rate - Anes 0 br/min br/min 02/15/2023 6:52 EDT Temperature Temporal Artery 36.2 DegC Apical Heart Rate 71 bpm Respiratory Rate 19 br/min Systolic Blood Pressure Non-Invasive 135 mmHg Diastolic Blood Pressure Non-Invasive 77 mmHg Vital Signs(last 24 hrs) Last Charted Heart Rate [id number] bpm (FEB 15 08:35) Resp Rate 19 br/min (FEB 15 06:52) RHH249 mmHg (FEB 15 08:35) GTJ091 mmHg (FEB 15 08:35) BMI43.15 (FEB 15 07:53) Measurements from flowsheet : Measurements 02/15/2023 7:53 EDT Body Mass Index 43.15 kg/m2 02/15/2023 6:52 EDT Height 168 cm Admission Weight 121.8 kg [place] Body Weight 59.63 kg Admission Body Mass Index 43.15 m2 Pain assessment: Pain Assessment 02/15/2023 8:40 EDT Primary Pain Intensity Not Done: See OR Record (Not Done) Primary Pain Intensity Not Done: See OR Record (Not Done) 02/15/2023 7:37 EDT Primary Pain Intensity 0 02/15/2023 6:52 EDT Primary Pain Intensity 0 Pain Scale Type 0-10 Pain scale . General: Alert and oriented. Airway: Normal temporomandibular joint mobility, Normal mouth, Normal neck range of motion. Mallampati classification: III (soft palate, base of uvula visible). Dentition Evaluation: Dentures, lower, Dentures, upper. Respiratory: Respirations are non-labored. Cardiovascular: Normal rate. Neurologic: Alert, Oriented. Review / Management Results review: No qualifying data available , Lab results 02/15/2023 8:42 EDT SN - Implant - Implant/Explant Implant SN - Implant - Implant/Explant Implant SN - Implant - Implant/Explant Implant SN - Implant - Implant/Explant Implant 02/15/2023 8:40 EDT Primary Pain Intensity Not Done: See OR Record (Not Done) Primary Pain Intensity Not Done: See OR Record (Not Done) epinephrine Not Done: See OR Record (Not Done) epinephrine Not Done: See OR Record (Not Done) ketorolac Not Done: See OR Record (Not Done) ketorolac Not Done: See OR Record (Not Done) morphine Not Done: See OR Record (Not Done) morphine Not Done: See OR Record (Not Done) povidone iodine topical Not Done: See OR Record (Not Done) ROPivacaine Not Done: See OR Record (Not Done) ROPivacaine Not Done: See OR Record (Not Done) tranexamic acid Not Done: See OR Record (Not Done) 02/15/2023 8:39 EDT SN - WI - Route of Administration Local SN - WI - Route of Administration Local SN - WI - By (Single) SN - WI - By (Single) SN - WI - By (Single) SN - WI - By (Single) 02/15/2023 8:35 EDT Heart Rate Monitored 81 bpm bpm Respiratory Rate - Anes 19 br/min br/min Systolic Blood Pressure Non-Invasive 123 mmHg mmHg Diastolic Blood Pressure Non-Invasive 101 mmHg mmHg Oxygen Saturation 100 % % 02/15/2023 8:31 EDT SN - Irl - Irrigant Normal Saline SN - Irl - Irrigant Sterile Water SN - Irl - Irrigant Normal Saline SN - Irl - Irrigant Normal Saline SN - IrI - Volume In 450 mL SN - IrI - Volume In 500 mL SN - IrI - Volume In 70 mL SN - Irl - Additive IRRIGATION CHG 0.05% IRRISEPT 12/CA [id number] SN - Irl - Additive BETADINE SN - Irl - Additive 2000MG TXA SN - IrI - Volume Out 450 mL SN - IrI - Volume Out 500 mL SN - IrI - Volume Out 70 mL 02/15/2023 8:31 EDT SN - SP - Prep Agents Chloraprep SN - SP - HR - Method Clipped 02/15/2023 8:30 EDT SN - PP - Body Position Supine Standard Intra-op 02/15/2023 8:30 EDT Temperature (Route Not Specified) 36 DegC DegC Heart Rate Monitored 85 bpm bpm Respiratory Rate - Anes 16 br/min br/min Systolic Blood Pressure Non-Invasive 125 mmHg mmHg Diastolic Blood Pressure Non-Invasive 52 mmHg mmHg Oxygen Saturation 84 % % Lactated Ringers Injection 1,000 mL mL 02/15/2023 8:29 EDT SN - PTCare - Anti-thromboembolism Cassidy Sequential Compression Device (SCD) 02/15/2023 8:29 EDT SN - GCD - Post-operative Diagnosis UNILATERAL PRIMARY OSTEOARTHRITIS, RIGHT KNEE. VARUS DEFORMITY, RIGHT KNEE. SN - GCD - Case Level Level 5 02/15/2023 8:29 EDT SN - Cul - Culture Type No Specimen per Surgeon 02/15/2023 8:27 EDT SN - CTm - Surgery Start 02/15/2023 8:26 02/15/2023 8:26 EDT SN - CTm - Surgery Start Surgery Start 02/15/2023 8:25 EDT Heart Rate Monitored 85 bpm bpm Respiratory Rate - Anes 17 br/min br/min Systolic Blood Pressure Non-Invasive 147 mmHg mmHg Diastolic Blood Pressure Non-Invasive 127 mmHg mmHg Oxygen Saturation 90 % % 02/15/2023 8:20 EDT Heart Rate Monitored 84 bpm bpm Respiratory Rate - Anes 16 br/min br/min Systolic Blood Pressure Non-Invasive 131 mmHg mmHg Diastolic Blood Pressure Non-Invasive 76 mmHg mmHg Oxygen Saturation 91 % % 02/15/2023 8:15 EDT Heart Rate Monitored 88 bpm bpm Respiratory Rate - Anes 0 br/min br/min Systolic Blood Pressure Non-Invasive 126 mmHg mmHg Diastolic Blood Pressure Non-Invasive 65 mmHg mmHg Oxygen Saturation 100 % % cefazolin 2 gram(s) gram(s) Sodium Chloride 0.9% 100 mL mL 02/15/2023 8:10 EDT Heart Rate Monitored 89 bpm bpm Respiratory Rate - Anes 0 br/min br/min Systolic Blood Pressure Non-Invasive 113 mmHg mmHg Diastolic Blood Pressure Non-Invasive 54 mmHg mmHg Oxygen Saturation 96 % % 02/15/2023 8:07 EDT SN - Preop - CTm Pt Ready for OR/Proced 02/15/2023 7:45 02/15/2023 8:07 EDT SN - Preop - CTm Pt in SDS Room 02/15/2023 6:20 02/15/2023 8:05 EDT Respiratory Rate - Anes 0 br/min br/min 02/15/2023 8:00 EDT Respiratory Rate - Anes 0 br/min br/min 02/15/2023 7:57 EDT SN - CTm - Anesthesia Start Time Anesthesia Start 02/15/2023 7:54 EDT dexAMETHasone 5 mg mg ROPivacaine 140 mg mg 02/15/2023 7:53 EDT Designated Person #1 We May Share PHI Jing Renee [phone] Designated Person #1 Relationship Daughter Designated Person #2 We May Share PHI Joni Davis [phone] Designated Person #2 Relationship Spouse Privacy Restrictions Requested None Body Mass Index 43.15 kg/m2 Status No, per patient Sensory Deficits None Diagnosed With Sleep Apnea Yes Advanced Directives No - refuses information Infectious Disease Symptoms Patient states no symptoms Infectious Disease Recent Exposure No Alcohol and Drug Use No Employee of Institutional Living No Health Care Employee No History of Exposure to TB No History of Positive Chest X-Ray for TB No History of Positive TB Skin Test No Homeless No Known Immunosuppression No Recent Immigrant No Resident of Institutional Living No Bloody Sputum No Fatigue No Fever No Loss of Appetite No Night Sweats No Persistent Cough > 3 Weeks No Weight Loss No Pre-Op Patient Education NPO after midnight, No smoking after midnight, No makeup, No jewelry, Aware of surgery location, Pre-op education done, 1 bottle CHG wash with instructions given, No ordered medications SN - Preprocedure Comments Spoke with patient, Verbalizes/Nonverbally indicates understanding Anesthesia Evaluation Date/Time 01/17/2023 11:20 Anesthesia Evaluation Performed By JAMES LUONG WILDLIFE BIOLOGY TECHNICIAN-SCOURING PADS SUPERVISOR Anesthesia Evaluation Result Approved Barriers to Learning None evident Teaching Method Explanation, Printed materials Preferred Spoken Language Fijian Preferred Written Language Fijian Teaching Evaluation Needs further teaching Total Joint Book Given Yes Safety Brochure Information Reviewed Unable to complete Josephine Shoemaker Video Viewed No Information Given by Patient Patient's Current Physicians Patient's Current Physicians Discharge To, Anticipated Home with family care Prev Test Positive/Diagnosis w/COVID-19 No Current Quarantine/Isolated any Illness No Any Contact with Sick Animals/Birds No Traveled Anywhere in Last 30 Days No Lost Weight Unintentionally Recently No Eat Poorly Due to Decreased Appetite No Total MST Score 0 No Personal Devices, Patient Valuables Dentures, upper, Glasses Anesthesia/Transfusions Prior anesthesia Admission Note-Nursing Same Day Patient History 02/15/2023 7:52 EDT citric acid-sodium citrate Not Given: Other (Not Done) 02/15/2023 7:46 EDT Time Out Procedure Verified Time Out Procedure Site Verified Yes Time Out Procedure Site Marked Yes Time Out Correct Patient Position Yes Consent Form Signed Yes Bedside Procedure Nerve Block Provider #1 Bedside Time Out DARYN PLUMMER APRN-SCOURING PADS SUPERVISOR Provider #2 Bedside Time Out Davina Moulton RN Provider #3 Bedside Time Out Jennie Mccoy RN Allergy Band on and Verified Yes Patient ID Band on and Verified Yes Anesthesia Consent Signed Yes Blood Consent Signed Yes 02/15/2023 7:44 EDT fentaNYL 50 mcg mcg midazolam 1 mg mg 02/15/2023 7:43 EDT Lactated Ringers Injection Begin Bag 1,000 mL mL 02/15/2023 7:38 EDT SN - Assess - LOC Alert, Awake SN - Assess - Orientation Oriented X 3 SN - Assess - Post-op Skin Integrity Intact/Dry 02/15/2023 7:37 EDT Primary Pain Intensity 0 celecoxib 400 mg mg oxyCODONE 10 mg mg Lactated Ringers Injection 1,000 mL mL 02/15/2023 7:36 EDT SN - CAt - Case Attendee SN - CAt - Case Attendee SN - CAt - Case Attendee SN - CAt - Case Attendee SN - CAt - Case Attendee SN - CAt - Case Attendee SN - CAt - Case Attendee SN - CAt - Case Attendee SN - CAt - Case Attendee SN - CAt - Case Attendee SN - CAt - Case Attendee SN - CAt - Case Attendee SN - CAt - Role Performed SCOURING PADS SUPERVISOR SN - CAt - Role Performed Physical Education Professor 1 SN - CAt - Role Performed Scrub 1 SN - CAt - Role Performed Snack Foods Mixer Operator 1 SN - CAt - Role Performed Jowl Trimmer SN - CAt - Role Performed Physician Center Maker Hand 02/15/2023 7:34 EDT SN - CAt - Case Attendee SN - CAt - Case Attendee SN - CAt - Role Performed Primary Surgeon 02/15/2023 7:34 EDT SN - Proc - Actual Procedure ROBOTIC ASSISTED RIGHT TOTAL KNEE ARTHROPLASTY 02/15/2023 7:33 EDT famotidine 20 mg mg 02/15/2023 7:20 EDT Continuous IV Infusions LR Wrist Left 02/15/2023 20 gauge Peripheral IV Activity: Insert new site Peripheral IV Dressing Condition: Clean, Dry, Intact Peripheral IV Dressing Activity: Applied, Transparent dressing Peripheral IV Line Status/Patency: Continuous infusion Peripheral IV Line Care: Secured with tape Peripheral IV Site Condition: No complications Peripheral IV Equipment: Extension set, [place] Peripheral IV Number of Attempts: 1 02/15/2023 7:17 EDT ABO/Rh Interp A NEG Antibody Screen Gel Negative ABSC 02/15/2023 7:06 EDT Blood Glucose, Capillary 103 mg/dL IV Present Present Allergies Yes Anesthesia Extension Set Applied Yes Progressive Assembler And Fitter On Yes Consent Form Signed Yes Patient Dressed In Hospital gown Pre-op Preparation Dentures, upper removed, Glasses removed CHG Preoperative Wash/Wipe Night before procedure, Day of procedure Preop Nasal Swab Povidone-Iodine History & Physical Update On Chart Yes History & Physical On Chart Yes Obstructive Sleep Apnea Assess Completed Yes Belongings At Bedside CPAP, Dentures, upper, Glasses, Pants, Shirt, Shoes, Undergarments, Walker, Transferred with patient Personal Home Medications Received No home medications were brought in Belongings Sent Home None Belongings to Security/Secured in Dept None NPO Status Maintained Allergy Band on and Verified Yes Patient ID Band on and Verified Yes Implants Verified Yes Pacemaker/AICD Verified Yes Site Verified by Patient/Family Yes Anesthesia Consent Signed Yes Blood Consent Signed Yes Last Fluid Intake 02/14/2023 22:20 Last Food Intake 02/14/2023 22:15 Last Void 02/15/2023 7:24 Patient Cleared for Surgery By RIAN ROMERO MD Cardiac Clearance For Surgery By MUKESH GARCIA MD 02/15/2023 6:52 EDT Height 168 cm Admission Weight 121.8 kg [place] Body Weight 59.63 kg Admission Body Mass Index 43.15 m2 Temperature Temporal Artery 36.2 DegC Apical Heart Rate 71 bpm Respiratory Rate 19 br/min Systolic Blood Pressure Non-Invasive 135 mmHg Diastolic Blood Pressure Non-Invasive 77 mmHg Primary Pain Intensity 0 Pain Scale Type 0-10 Pain scale Heart Sounds ICU [id number] Heart Rhythm Irregular Dorsalis Pedis Pulse, Left 1+ Thready Dorsalis Pedis Pulse, Right 1+ Thready Respirations Unlabored All Lobes Breath Sounds Clear Oxygen Therapy Room air Oxygen Saturation 95 % Abdomen Description Non-distended Bowel Sounds All Quadrants Present Urinary Elimination Voiding, no difficulties Skin Temperature Warm Skin Description [place], Dry Skin Integrity Intact Mucous Membrane Color [place] Skin Moisture General Dry Extremity Movement Equal Characteristics of Speech Clear Level of Consciousness Alert Strength All Extremities Strong Tone All Extremities Normal Sensation All Extremities Intact Affect/Behavior Appropriate, Calm, Cooperative Orientation Oriented x 4 Patient Identified Identification band Arrival Mode Ambulatory Anh Motor (2) Moves 4 extremities voluntarily or on command Anh Respirations (2) Spontaneous respiration without support, RR > 10 Anh Blood Pressure (2) BP 20% above or below preanesthetic level Anh Pulse (2) Pulse 20% above or below preanesthetic level Anh Oxygen Saturation (2) 94% or more Anh Level of Consciousness (2) Fully awake Anh III Score 12 Assistive Device None Activity Status ADL Awake Sequential Compression Device left knee high applied/on Antiembolism Stocking On/Re-applied left thigh high Standard Safety ID band on, Allergy Band on, Call device within reach, Bed in low position, Wheels locked, Non-Slip footwear . Assessment and Plan [place] [employer] Anesthesiologists (ASA) physical status classification: Class III. Anesthetic Preoperative Plan Anesthetic technique: Spinal. Postoperative pain management: adductor. Risks discussed: cardiac at length. Informed consent: signed by patient. Digitally Signed by DARYN PLUMMER on 02/15/2023 08:[address] [facility]07-17-2023 Note ORIGINAL EXAMINATION: CT OF THE RIGHT KNEE WITHOUT CONTRAST 01/17/2023 12:37 pm TECHNIQUE: CT of the right knee was performed without the administration of intravenous contrast. Multiplanar reformatted images are provided for review. Automated exposure control, iterative reconstruction, and/or weight based adjustment of the mA/kV was utilized to reduce the radiation dose to as low as reasonably achievable. COMPARISON: None. HISTORY ORDERING SYSTEM PROVIDED HISTORY: Reason for Exam: Unilateral primary osteoarthritis, right knee. FINDINGS: No acute fracture or dislocation. Normal osseous mineralization. No visible aggressive osseous lesions. There is severe medial femorotibial compartment joint space narrowing with subchondral sclerosis and marginal osteophytes. Medial meniscal body extrusion. There is [id number] lateral femorotibial compartment joint space narrowing with marginal osteophytes and minimal vacuum joint phenomena. There is mild to moderate patellofemoral compartment joint space narrowing with small marginal osteophytes and subchondral sclerosis of the lateral patellar facet.. A trace volume knee joint effusion is shown. Punctate intracapsular body of the suprapatellar recess. No significant volume of fluid is evident of a popliteal cyst. Nonspecific subcutaneous stranding of the prepatellar region is noted. Small soft tissue calcification in this region also. Tendons and ligaments are suboptimally evaluated on this examination. No severe muscle atrophy. Mild gluteus minimus atrophy. Provided images of the hip and hemipelvis exhibit no acute osseous abnormalities or aggressive osseous lesions. Mild arthrosis of the pubic symphysis. The included intrapelvic contents exhibit no acute abnormalities. An enlarged right inguinal lymph node measures up to 1.8 cm short axis. Provided images of the ankle exhibit no acute osseous abnormalities or aggressive osseous lesions. Incidental type 1 os naviculare. Calcaneal enthesopathy. Mild dorsal osteophytosis of the midfoot. IMPRESSION: 1. No acute osseous abnormalities or aggressive osseous lesions. 2. 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 Trace volume effusion. Punctate intracapsular body of the suprapatellar recess. Interpreted by: Mateo Palmer DO Preliminary Report By: Mateo Palmer DO Electronically signed By Mateo Palmer DO Dictated Date: 01/17/2023 12:57:42 PM Prelim Date: 01/17/2023 1:12:06 PM Sign Date: 01/17/2023 1:12:06 PM Ordering Provider: [facility]07-17-2023 Note ORIGINAL EXAMINATION: CT OF THE RIGHT KNEE WITHOUT CONTRAST 01/17/2023 12:37 pm TECHNIQUE: CT of the right knee was performed without the administration of intravenous contrast. Multiplanar reformatted images are provided for review. Automated exposure control, iterative reconstruction, and/or weight based adjustment of the mA/kV was utilized to reduce the radiation dose to as low as reasonably achievable. COMPARISON: None. HISTORY ORDERING SYSTEM PROVIDED HISTORY: Reason for Exam: Unilateral primary osteoarthritis, right knee. FINDINGS: No acute fracture or dislocation. Normal osseous mineralization. No visible aggressive osseous lesions. There is severe medial femorotibial compartment joint space narrowing with subchondral sclerosis and marginal osteophytes. Medial meniscal body extrusion. There is yeor-id-etsnxosr lateral femorotibial compartment joint space narrowing with marginal osteophytes and minimal vacuum joint phenomena. There is mild to moderate patellofemoral compartment joint space narrowing with small marginal osteophytes and subchondral sclerosis of the lateral patellar facet.. A trace volume knee joint effusion is shown. Punctate intracapsular body of the suprapatellar recess. No significant volume of fluid is evident of a popliteal cyst. Nonspecific subcutaneous stranding of the prepatellar region is noted. Small soft tissue calcification in this region also. Tendons and ligaments are suboptimally evaluated on this examination. No severe muscle atrophy. Mild gluteus minimus atrophy. Provided images of the hip and hemipelvis exhibit no acute osseous abnormalities or aggressive osseous lesions. Mild arthrosis of the pubic symphysis. The included intrapelvic contents exhibit no acute abnormalities. An enlarged right inguinal lymph node measures up to 1.8 cm short axis. Provided images of the ankle exhibit no acute osseous abnormalities or aggressive osseous lesions. Incidental type 1 os naviculare. Calcaneal enthesopathy. Mild dorsal osteophytosis of the midfoot. IMPRESSION: 1. No acute osseous abnormalities or aggressive osseous lesions. 2. 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 Trace volume effusion. Punctate intracapsular body of the suprapatellar recess. Interpreted by: Mateo Palmer DO Preliminary Report By: Mateo Palmer DO Electronically signed By Mateo Palmer DO Dictated Date: 01/17/2023 12:57:42 PM Prelim Date: 01/17/2023 1:12:06 PM Sign Date: 01/17/2023 1:12:06 PM Ordering Provider: ABHI Bryson [facility]06-19-2023 Discharge summary Author Joi Hood [facility] December 20, 2022 3:21pm Note Date/Time December 20, 2022 3:12 pm [facility] Physical Therapy [facility] [address] [place] [address] [address] [place], [place] [id number] / REHABILITATION SERVICES DISCHARGE SUMMARY MR#: [id number] Acct: [id number] Name: GUADALUPE DAVIS Rep #: [id number] 18 : 1955 67 From: Joi Page Referring Dr.: Dr. Abhi Amin MD Status: REG RCR Insurance: [employer] PAY INSURANCE It has been my pleasure to treat GUADALUPE DAVIS referred by Dr. Abhi Amin MD, with the diagnosis of OA of B knees for a total of 8 visit(s). Discharge Date: 12/20/22 Please see the following information for a summary of their discharge status. Subjective: Pt is loving the water but has not had time to call on her own. Herknees are not feeling any better. She thinks that the water is good for her forher legs and health not just her knees. R knee pain Pain Intensity (Out of 10): 5 L knee pain Pain Intensity (Out of 10): 3 Objective/Function: LE MMT: R hip flex 11.1 and L hip flex 11. R knee ext 27.8and L knee ext 25.8. R knee flex 11.9 and L 11.5. Supine in hooklying hip abd R 17.2 and L 20.6 Goal 1:: I HEP Goal Progress: Goal Met Goal 2:: Be able to walk with increase stride and less pain with her straight cane Goal Progress: Not Progressing Goal 3:: Increase LE strength (at the al LE strength was LE MMT: R hip flex 8.4 and L hip flex 8.2. R knee ext 27.8 and L knee ext 25.8. R knee flex 11.6 and L 11.5. Supine in hooklying hip abd R 12.8 and L 15.9) Goal Progress: Goal Met Plan: 2X/ week for 6 weeks for B hip and knee ROM and strengthening, core strength, gait training, stair negotiation, with HEP. Gait: Pt still walks with shorter stride with her straight cane Discharge Comments: DC PT to [facility] If there are questions or concerns regarding this patient's physical therapy, please feel free to call me at [phone]. Thank you for the referral of thispatient. Sincerely, YVONNE Pierce Balance/Gait/Functional tests - Balance/Special Test Scores Lower Extremity Functional Score: 40 <Electronically signed by Joi Hood MPT> 12/20/22 1521 CC: Dr. Rian Romero MD; Dr. Abhi Amin MD ~ Signed [facility] [place] Work Phone: [phone] 568-425903-08-2023 Discharge summary Date of Service 09/08/2022 Discharge Diagnosis Symptomatic bradycardia Hypomagnesemia resolved Elevated HCO3 likely due to Chronic respiratory acidosis due to YOHAN History of paroxysmal atrial fibrillation (CHAD2 VASc2 score - 3, HAS BLED - 2) Morbid Obesity (BMI 45) YOHAN on CPAP Diabetes mellitus Depression Hospital Course This is a 66-year-old female with past medical history of paroxysmal A-fib (s/p ablation atrial fibrillation 3 to 5 years ago in [place], not [facility] or , 2-3 times of cardioversion, the last one around Apr 2022) on Xarelto, flecainide and metoprolol, diabetes mellitus, obesity, YOHAN on CPAP at night, and depression went to [facility] this evening with presyncope, dizziness and lightheadedness. Patient was using the restroom when she initially experienced dizziness and lightheadedness resulted in presyncope. Lasted about 10 seconds. Patient's never actually lost consciousness nor fell. After spontaneous recovery, there was repeat episode about 20 minutes later. Patient was in the bedroom at that time and that episode lasted about another 10 seconds. At that time, patient decided to go to [place] [facility]. Patient was given IV hydration at [place] and transferred to [facility] for further management.On arrival to [place], patient was asymptomatic. She denied chest pain, palpitation, dyspnea, orthopnea, lightheadedness. Patient also denied recent nausea, vomiting, diarrhea, fever, chills, respiratory and urinary symptoms. She takes her medication regularly. Her last cardioversion was in April 2022. Since then, patient remained asymptomatic and A-fib has been under control. However, she had similar episode about 1 month ago. At that time, patient was found to have hyponatremia. Patient got better with correction of electrolytes and planned to follow-up with photogrammetric compilation specialist. On arrival to [facility], patient was afebrile, heart rate 50 60 /min sinus rhythm, blood pressure 102/54, saturating 95% on room air. CBC and BMP was unremarkable except for elevated bicarb at33. Magnesium level was 1.6. EKG was in sinus rhythm, rate 60/min. Troponin was negative proBNP [id number]. On admission patient was started on IV fluid hydration. Repeat echocardiogram was ordered and EP was consulted. Metoprolol and flecainide were held. Lipid profile was within normal limits showing cholesterol 130, triglycerides 91, HDL 59, LDL 53, TSH 2.84, A1c 5.8. Echocardiogram done showed EF 55 to 60%, grade 1 diastolic dysfunction present. Patient underwent permanent pacemaker placement yesterday. Patient is currently in sinus rhythm with heart rate in the 80s. Patient was given 1 doseof metoprolol 50 mg this a.m. and was able to tolerate it. Repeat chest x-ray did not show any acute abnormalities. Patient will be discharged home on metoprolol 50 mg once daily. Flecainide has beendiscontinued. Patient is advised to follow-up with her trial examiner within the next 1-2 weeks and her photogrammetric compilation specialist within the next 1-2 weeks. Allergies Neosporin bacitracin (Cephalexin, Polymyxins) cephalexin neomycin Procedures Permanent pacemaker placement Consults Consult to Physician (Physician Consult) - Ordered -- 09/06/22 9:08:00 HECTOR DAUGHERTY GREGORY J MD, Routine, symptomatic bradycardia; hx of afib; on flecainide and tartate Imaging Results and Diagnostics XR Chest 1 View Result Date: September 08, 2022 Verified By: GURDEEP MCBRIDE MD CLINICAL STATEMENT: IMPRESSION: No evidence of an acute process. XR Chest 2 Views Result Date: September 07, 2022 Verified By: EPHRAIM JUNIOR MD CLINICAL STATEMENT: IMPRESSION: Interval placement of left-sided pacemaker. No pneumothorax. I have personally reviewedthe images of this examination and agree with theresident's findings and interpretation. Physical Exam Vitals and Measurements T: 36.6 C (Oral) TMIN: 33.72 C TMAX: 36.6 C (Oral) HR: 69(Monitored) RR: 18 BP: 147/68 SpO2: 94% Weight Dosing Weight: 125 kg (09/05/22) General Appearance: Patient comfortably lying on bed, in no acute distress Head: Normocephalic, atraumatic EENT: PERRLA, Neck: Supple, no JVD, Cardiac: s1s2,RRR, no murmurs or rubs or gallops Lungs: Clear to auscultation bilaterally, no wheeze or rhonchi or crackles Abdomen: Soft , Nontender, no organomegaly, bowel sounds heard Musculoskeletal: Full ROM , no gross deformities Extremities: No rash or ulcers or pedal edema present bilateral lower extremities Pending Labs and Studies None Code Status Code Status - Ordered -- 09/06/22 1:36:00 EST, Full Code, Constant Order Admission Date 09/06/2022 Discharge Date 09/08/2022 Patient Instructions Please continue taking all medications as prescribed. We have reduced your dose of metoprolol to 50 mg once daily. We have discontinued your flecainide. Please follow-up with your photogrammetric compilation specialist within next 1-2 weeks -Please follow-up with your trial examiner in 1 to 2 weeks -You are advised to avoid heavy lifting over 10 pounds with left arm for 1 month. You may shower. Please avoid bath tub or pool for 6 days. You are advised to remove dressing in 6 days. You may resume taking Xarelto this evening. Medications Changed metoprolol (Toprol-XL 50 mg oral tablet, extended release)1 tab(s) by mouth once a day with a meal for 30 Days. Refills: 1. Unchanged ascorbic acid (Vitamin C 25 mg oral tablet, chewable)1 tab(s) Chewed once a day. atorvastatin (atorvastatin 10 mg oral tablet)1 tab(s) by mouth once a day. calcium-vitamin D (Calcium 600+D oral tablet)1 tab(s) by mouth once a day. cholecalciferol (Vitamin D3)25 Microgram by mouth every 12 hours. metFORMIN (metFORMIN 1000 mg oral tablet (IR))1 tab(s) by mouth two (2) times a day. multivitamin (Multivitamin)1 tab(s) by mouth every day. rivaroxaban (Xarelto)20 Milligram by mouth once a day (in the evening). sertraline (sertraline 50 mg oral tablet)1 tab(s) by mouth once a day. Discontinued flecainide (flecainide 100 mg oral tablet)1 tab(s) by mouth every 12 hours. Follow Up Follow Up with MUKESH GARCIA MD When In 1 week Where: [address] [place] [address]- Follow Up with RHETT MORFIN MD When In 2 weeks Where: [address] [facility] [address] [facility] [place] [address]- [phone] Follow Up Appointments No qualifying data available. Follow Up Labs/Studies Discharge Labs No Follow-up Labs Discharge Studies No Follow-up Studies Discharge Diet No qualifying data available. Discharge Activity No qualifying data available. Condition on Discharge Fair Discharge Disposition Home Digitally Signed by ABHISHEK ANNE MD on 09/08/2022 12:20 PM Digitally Signed by ABHISHEK ANNE MD on 09/08/2022 12:23 PM [id number] Discharge instructions Patient Education 09/08/2022 12:56:24 3- Pacemaker/ICD New Device 08/2019(CUSTOM) PACEMAKER / ICD INSERTION Discharge Instructions WOUND CARE DO NOT place any ointments, creams, powders or lotions on the incision. Call your pacemaker/ICD doctor s office immediately if you have: oIncreased redness oDrainage from the incision oOpening of the incision oIncreased pain, warmth or swelling on or around the site oTemperature elevation above 100.5 Call if you experience dizziness or palpitations or a fast or slow heart rate If an Aquacel Ag surgical dressing has been applied: oYou may take a shower as long as the dressing is sealed well to your skin. oYou may remove the bandage in 7 days: To do this, press down on your skin with one hand and carefully lift an edge of the bandage with your other hand. Stretch the dressing to break the adhesive seal and gently pull it off. oIf the bandage becomes loose or falls off in less than 5 days, you will not be able to take any showers or baths. ?You must keep the incision dry for the first 5 days after your procedure. ?DO NOT clean the incision with any soap, water, peroxide or alcohol. ?Leave it dry and uncovered for 5 days, then you may shower using soap and water. oWear loose fitting clothes over the incisional site to avoid irritation until it is healed. If you do not have a dressing: oDO NOT shower or get the incision wet for 5 days. oDO NOT clean the incision with any soap, water, peroxide or alcohol. oLeave it dry and uncovered for 5 days, then you may shower using soap and water. oWear loose fitting clothes over the incisional site to avoid irritation until it is healed. MEDICATIONS Take antibiotics before dental work as prescribed by your physician (if prescribed) Take medications as directed until prescription is finished Avoid alcohol while taking medications You may take Tylenol (acetaminophen) for incisional pain or discomfort. ACTIVITY RESTRICTIONS DO NOT lift anything heavier than 5 lbs with the arm on the side of the Pacemaker/ICD for one month. DO NOT raise the arm on the side of the Pacemaker/ICD above shoulder level for one month. You may resume normal driving unless otherwise restricted. Driving may cause soreness at the incision site. FOLLOW UP Follow up with the Pacemaker/ICD center for routine evaluation of your device. Your appointment to have your device checked and to see the doctor in 12-14 weeks has been scheduled and is listed abovein the Follow Up section of these discharge instruction. Device Monitor Now that you have a permanent pacemaker, ICD, and/or loop recorder (all called a device ) it shouldbe checked regularly. This is done with a monitor that sends information from the device to your photogrammetric compilation specialist (heart doctor) office. How will I get my monitor? The monitor will be shipped to your home within 6 weeks after you are discharged. But, if you are given the monitor before discharge, please take it home. You may get other equipment (such as a bloodpressure cuff and weight scale) shipped as well. There is no charge for this equipment. How does the monitor work? The monitor needs to be set up close to where you sleep. The monitor will automatically cotton picker operator heart signals and send the information to your doctor. Or you may be asked to push a button to send theinformation. What are the next steps? You will have an appointment with the nurse at the Device Clinic in about 2 weeks and the nurse will check your device (you will not see your doctor). The nurses will talk to you about the monitor atthat time. When you get the monitor, there will be clear instructions with how to set it up. Please call the Device Clinic if you have questions. [facility]: [phone] Ask for the Device Clinic or pak-in extension [phone] when prompted. Device Clinic Location: [facility] (not the physician office building). Enter the [facility] and take the elevators to the 2nd floor. Take the lubin to the slight left labeled [facility] . If you are interested, you may find information about your device on the web, including videos thatwill help you understand and set up your monitor. The monitor you will get is based on the company that manufactured your device. Your device card will tell you the rehabilitation assistant. Using the search box: [employer]: Latdaniel Communicator quick start oPatient Help: [employer]: MyCareLink quick start oPatient Help: [employer] ([place]ice): [email or web address] quick start oPatient Help: Other important information about your device: Always carry your device card with you. Your device may set off a metal detector. Be sure you have your device card with you if you plan togo through any area, such as an airport that may have a metal detector. Before having any test or procedure, make sure you tell the healthcare professional that you have an implanted device. IMPLANTABLE CARDIOVERTER-DEFIBRILATOR (ICD) Instructions and Precautions ELECTRICAL CONCERNS Normal household appliances like TV, refrigerator, microwave oven/stove, and small electrically powered motor appliances WILL NOT interfere with your ICD. When talking on your cell phone, hold the phone with the arm that does not have your ICD. Do not carry your cell phone in your shirt pocket! ICD DISCHARGE If you receive one shock , sit down and wait a minute. Take some slow deep breaths. If you receive further immediate shocks, remain sitting or lying down. After receiving shocks, if you have a Home Monitoring system for your ICD, please do an automated transmission and call your ICD doctor to advise them of therapies. A family member, friend, etc., should call an ambulance if you become unresponsive at any time. You should call 911 if multiple shocks occur, or if you do not feel well after 1-2 minutes from your shock. MAGNETIC CONCERNS Avoid strong magnetic mccollum, i.e.: large speakers, TV towers, magnets in race car shops. Staying 6-12 feet away is okay. Do not touch the CB radio antenna or [facility] radio antenna that are in operation. Do not touch spark plugs or distributor wires of a running car or wire sawyer. Avoid the fenced enclosure areas of a radio or TV transmitting tower. Avoid machinery with magnets; industrial shops, arc welders, and race car repair areas. Avoid placing stereo speakers close to your device as they have magnets in them. MEDICAL IDENTIFICATION Carry your ICD card with you at all times. It is suggested that you provide a copy of your card to family members/significant others. PERSONAL CONTACT Should your ICD discharge while another person is touching you, that person may feel a slight muscular contraction that is not harmful. NOTIFICATION OF HEALTH PROFESSIONALS Notify your personal physician about your ICD. You must tell your surgeon or Regional Facilities Specialist before you undergo any procedure or surgery. This includes, but is not limited to: any surgery, colonoscopy and/or EGD s. Follow Up Care 09/05/2022 23:27:16 With:MUKESH GARCIA MD Address: [address] [place] [address]- When:Within 1 Week(s) With:RHETT MORFIN MD Address: [address] [facility] [address] [place] [address] [phone] When:Within 2 Week(s) [facility] 03-08-2023 Note Discharge Instructions Thank you for allowing [place] to assist you with your healthcare needs. The following is importantdischarge information regarding your hospital visit. Your Care Team RIAN ROMERO MD What to do next Instructions From Your Doctor Please continue taking all medications as prescribed. We have reduced your dose of metoprolol to 50 mg once daily. We have discontinued your flecainide. Please follow-up with your photogrammetric compilation specialist within next 1-2 weeks -Please follow-up with your trial examiner in 1 to 2 weeks -You are advised to avoid heavy lifting over 10 pounds with left arm for 1 month. You may shower. Please avoid bath tub or pool for 6 days. You are advised to remove dressing in 6 days. You may resume taking Xarelto this evening. Please do not take your metformin today. You can start taking it from tomorrow. Scheduled Follow-Up Appointments Appointment Type When Where Contact InformationCV OV Incision Check 09/21/2022 02:30 PM EDT [facility] CV Office Procedure ICD 12/14/2022 11:30 AM EDT [facility] CV Remote Procedure HM 03/17/2023 08:15 AM EDT [facility] [place] Follow Up Appointments Follow Up with MUKESH GARCIA MD When In 1 week Where: [address] [place] [address]- Follow Up with RHETT MORFIN MD When In 2 weeks Where: [address] [facility] [place] [address]- [phone] The Following Activity and Diet Have Been Ordered for You Discharge Activity - Ordered -- Activity As Tolerated, Avoid heavy lifting greater than 10 pounds for 1 month. You may take a shower. Avoid bathtubs and pools., 09/08/22 12:23:00 EST Discharge Diet - Ordered -- Type of Diet: Cardiac, No changes were made to your diet during your hospital stay. Please resume your pre hospitalization diet on discharge., 09/08/22 12:23:00 EST The Following Equipment Has Been Ordered for You No qualifying data available. The Following Treatments Have Been Ordered for You Discharge Labs No qualifying data available. Discharge Radiology No qualifying data available. Other Therapies No qualifying data available. Post Acute Orders No qualifying data available. Someone Will Contact You Regarding These Home Health Referrals No home referrals have been ordered for you. No one will call you. Allergies Neosporin bacitracin (Cephalexin, Polymyxins) cephalexin neomycin Medications Please ask your primary doctor or pharmacist before taking any other medication not listed, including over the counter drugs, herbal medications, vitamins and or supplements as they may interact withyour home medications. What How Much When Instructions Last Dose Changed metoprolol (Toprol-XL 50 mg oral tablet, extendedrelease) 1 tab(s) by mouth Once a day with a meal Duration: 30 Days Pickup at [facility]/pharmacy #[id number] Unchanged ascorbic acid (Vitamin C 25 mg oral tablet, chewable) 1 tab(s) Chewed Once a day Unchanged atorvastatin (atorvastatin 10 mg oral tablet) 1 tab(s) by mouth Once a day Unchanged calcium-vitamin D (Calcium 600+D oral tablet) 1 tab(s) by mouth Once a day Unchanged cholecalciferol (Vitamin D3) 25 Microgram by mouth Every 12 hours Unchanged metFORMIN (metFORMIN 1000 mg oral tablet (IR)) 1 tab(s) by mouth Two (2) times a day Unchanged multivitamin (Multivitamin) 1 tab(s) by mouth Every day Unchanged rivaroxaban (Xarelto) 20 Milligram by mouth Once a day (in the evening) Unchanged sertraline (sertraline 50 mg oral tablet) 1 tab(s) by mouth Once a day Pharmacy Information [facility]/pharmacy #[id number]: [address], [place] [phone] What How Much When Comments Stop Taking flecainide (flecainide 100 mg oral tablet) 1 tab(s) by mouth Every 12 hours Please take this list to your next doctor s visit. Bring all medications you take, including over the counter medications, herbals and other supplements with you to your doctor s visit. Patients and families are reminded to discard old lists and to update any records with all medication providers or retail pharmacies. Medication Leaflets metoprolol (oral/injection) (me TOE pro lol) Kapspargo Sprinkle, Lopressor, Metoprolol Succinate ER, Metoprolol Tartrate, Toprol-XL What is the most important information I should know about metoprolol? You should not use this medicine if you have a serious heart problem (heart block, sick sinus syndrome, slow heart rate), severe circulation problems, severe heart failure, or a history of slow heartbeats that caused fainting. What is metoprolol? Metoprolol is a beta-vaishali that affects the heart and circulation (blood flow through arteries and veins). Metoprolol is used to treat angina (chest pain) and hypertension (high blood pressure). It is also used to lower your risk of or needing to be hospitalized for heart failure. Metoprolol injection is used during the early phase of a heart attack to lower the risk of . Metoprolol may also be used for other purposes not listed in this medication guide. What should I discuss with my healthcare provider before taking metoprolol? You should not use this medicine if you are allergic to metoprolol, or other beta-blockers (atenolol, carvedilol, labetalol, nadolol, nebivolol, propranolol, sotalol, and others), or if you have: a serious heart problem such as heart block, sick sinus syndrome, or slow heart rate; severe circulation problems; severe heart failure (that required you to be in the hospital); or a history of slow heart beats that have caused you to faint. Tell your doctor if you have ever had: asthma, chronic obstructive pulmonary disease (COPD), sleep apnea, or other breathing disorder; diabetes (taking metoprolol may make it harder for you to tell when you have low blood sugar); liver disease; congestive heart failure; problems with circulation (such as Raynaud's syndrome); a thyroid disorder; or pheochromocytoma (tumor of the adrenal gland). Do not give this medicine to a child without medical advice. Tell your doctor if you are or plan to become . It is not known whether metoprololwill harm an unborn baby. However, having high blood pressure during may cause complications such as diabetes or eclampsia (dangerously high blood pressure that can lead to medical problemsin both mother and baby). The benefit of treating hypertension may outweigh any risks to the baby. Ask a doctor before using this medicine if you are breast-feeding. Metoprolol can pass into breast milk and may cause dry skin, dry mouth, diarrhea, constipation, or slow heartbeats in your baby. How should I take metoprolol? Follow all directions on your prescription label and read all medication guides or instruction sheets. Your doctor may occasionally change your dose. Use the medicine exactly as directed. Metoprolol should be taken with a meal or just after a meal. Take the medicine at the same time each day. Swallow the capsule whole and do not crush, chew, break, or open it. A Toprol XL tablet can be divided in half if your doctor has told you to do so. Swallow the half-tablet whole, without chewing or crushing. Measure liquid medicine carefully. Use the dosing syringe provided, or use a medicine dose-measuring device (not a kitchen spoon). You will need frequent medical tests, and your blood pressure will need to be checked often. If you need surgery, tell the surgeon ahead of time that you are using metoprolol. You should not stop using metoprolol suddenly. Stopping suddenly may make your condition worse. If you have high blood pressure, keep using this medicine even if you feel well. High blood pressure often has no symptoms. You may need to use metoprolol for the rest of your life. Store at room temperature away from moisture and heat. Metoprolol injection is given as an infusion into a vein. A healthcare provider will give you this injection in a medical setting where your heart and blood pressure can be monitored. Metoprolol injections are given for only a short time before switching you to the oral form of this medicine. What happens if I miss a dose? Skip the missed dose and use your next dose at the regular time. Do not use two doses at one time. What happens if I overdose? Seek emergency medical attention or call the Poison Help line at . What should I avoid while taking metoprolol? Avoid driving or hazardous activity until you know how this medicine will affect you. Your reactions could be impaired. Drinking alcohol can increase certain side effects of metoprolol. What are the possible side effects of metoprolol? Get emergency medical help if you have signs of an allergic reaction: hives; difficulty breathing; swelling of your face, lips, tongue, or throat. Call your doctor at once if you have: very slow heartbeats; a light-headed feeling, like you might pass out; shortness of breath (even with mild exertion), swelling, rapid weight gain; or cold feeling in your hands and feet. Common side effects may include: dizziness, tired feeling; depression, confusion, memory problems; nightmares, trouble sleeping; diarrhea; or mild itching or rash. This is not a complete list of side effects and others may occur. Call your doctor for medical advice about side effects. You may report side effects to FDA at 4-920-FWH-2017. What other drugs will affect metoprolol? Tell your doctor about all your current medicines. Many drugs can affect metoprolol, especially: any other heart or blood pressure medications; epinephrine (Epi-Pen); an antidepressant; an ergot medicine--dihydroergotamine, ergonovine, ergotamine, methylergonovine; or an MAO inhibitor--isocarboxazid, linezolid, phenelzine, rasagiline, selegiline, tranylcypromine. This list is not complete and many other drugs may affect metoprolol. This includes prescription and iuwf-gte-pxduwoy medicines, vitamins, and herbal products. Not all possible drug interactions are listed here. Where can I get more information? Your pharmacist can provide more information about metoprolol. Remember, keep this and all other medicines out of the reach of children, never share your medicines with others, and use this medication only for the indication prescribed. Every effort has been made to ensure that the information provided by [employer]. ('[employer]') is accurate, up-to-date, and complete, but no guarantee is made to that effect. Drug information contained herein may be time sensitive. [employer] information has been compiled for use by healthcare practitioners and consumers in the [place] and therefore [employer] does not warrant that uses outside of the [place] are appropriate, unless specifically indicated otherwise. [employer] drug information does not endorse drugs, diagnose patients or recommend therapy. [employer] drug information isan informational resource designed to assist licensed healthcare practitioners in caring for their p atients and/or to serve consumers viewing this service as a supplement to, and not a substitute for, the expertise, skill, knowledge and judgment of healthcare practitioners. The absence of a warningfor a given drug or drug combination in no way should be construed to indicate that the drug or drug combination is safe, effective or appropriate for any given patient. [employer] does not assume any responsibility for any aspect of healthcare administered with the aid of information [employer] provides. The information contained herein is not intended to cover all possible uses, directions, precautions, warnings, drug interactions, allergic reactions, or adverse effects. If you have questions about the drugs you are taking, check with your doctor, nurse or pharmacist. Copyright 2589-3199 [employer]. Version: 17.03. Revision Date: 11/29/2018. Education Materials PACEMAKER / ICD INSERTION Discharge Instructions WOUND CARE DO NOT place any ointments, creams, powders or lotions on the incision. Call your pacemaker/ICD doctor s office immediately if you have: o Increased redness o Drainage from the incision o Opening of the incision o Increased pain, warmth or swelling on or around the site o Temperature elevation above 100.5 Call if you experience dizziness or palpitations or a fast or slow heart rate If an Aquacel Ag surgical dressing has been applied: o You may take a shower as long as the dressing is sealed well to your skin. o You may remove the bandage in 7 days: To do this, press down on your skin with one hand and carefully lift an edge of the bandage with your other hand. Stretch the dressing to break the adhesive sealand gently pull it off. o If the bandage becomes loose or falls off in less than 5 days, you will not be able to take any showers or baths. ? You must keep the incision dry for the first 5 days after your procedure. ? DO NOT clean the incision with any soap, water, peroxide or alcohol. ? Leave it dry and uncovered for 5 days, then you may shower using soap and water. o Wear loose fitting clothes over the incisional site to avoid irritation until it is healed. If you do not have a dressing: o DO NOT shower or get the incision wet for 5 days. o DO NOT clean the incision with any soap, water, peroxide or alcohol. o Leave it dry and uncovered for 5 days, then you may shower using soap and water. o Wear loose fitting clothes over the incisional site to avoid irritation until it is healed. MEDICATIONS Take antibiotics before dental work as prescribed by your physician (if prescribed) Take medications as directed until prescription is finished Avoid alcohol while taking medications You may take Tylenol (acetaminophen) for incisional pain or discomfort. ACTIVITY RESTRICTIONS DO NOT lift anything heavier than 5 lbs with the arm on the side of the Pacemaker/ICD for one month. DO NOT raise the arm on the side of the Pacemaker/ICD above shoulder level for one month. You may resume normal driving unless otherwise restricted. Driving may cause soreness at the incision site. FOLLOW UP Follow up with the Pacemaker/ICD center for routine evaluation of your device. Your appointment to have your device checked and to see the doctor in 12-14 weeks has been scheduled and is listed abovein the Follow Up section of these discharge instruction. Device Monitor Now that you have a permanent pacemaker, ICD, and/or loop recorder (all called a device ) it shouldbe checked regularly. This is done with a monitor that sends information from the device to your photogrammetric compilation specialist (heart doctor) office. How will I get my monitor? The monitor will be shipped to your home within 6 weeks after you are discharged. But, if you are given the monitor before discharge, please take it home. You may get other equipment (such as a bloodpressure cuff and weight scale) shipped as well. There is no charge for this equipment. How does the monitor work? The monitor needs to be set up close to where you sleep. The monitor will automatically cotton picker operator heart signals and send the information to your doctor. Or you may be asked to push a button to send theinformation. What are the next steps? You will have an appointment with the nurse at the Device Clinic in about 2 weeks and the nurse will check your device (you will not see your doctor). The nurses will talk to you about the monitor atthat time. When you get the monitor, there will be clear instructions with how to set it up. Please call the Device Clinic if you have questions. [facility]: [phone] Ask for the Device Clinic or pak-in extension [phone] when prompted. Device Clinic Location: [facility] (not the physician office building). Enter the [place] lobby and take the elevators to the 2nd floor. Take the lubin to the slight left labeled [facility] . If you are interested, you may find information about your device on the web, including videos thatwill help you understand and set up your monitor. The monitor you will get is based on the company that manufactured your device. Your device card will tell you the rehabilitation assistant. Using the search box: [email or web address]: [employer] Communicator quick start o Patient Help: [employer]: MyCareLink quick start o Patient Help: [facility] [employer] ([place]): [email or web address] quick start o Patient Help: Other important information about your device: Always carry your device card with you. Your device may set off a metal detector. Be sure you have your device card with you if you plan togo through any area, such as an airport that may have a metal detector. Before having any test or procedure, make sure you tell the healthcare professional that you have an implanted device. IMPLANTABLE CARDIOVERTER-DEFIBRILATOR (ICD) Instructions and Precautions ELECTRICAL CONCERNS Normal household appliances like TV, refrigerator, microwave oven/stove, and small electrically powered motor appliances WILL NOT interfere with your ICD. When talking on your cell phone, hold the phone with the arm that does not have your ICD. Do not carry your cell phone in your shirt pocket! ICD DISCHARGE If you receive one shock , sit down and wait a minute. Take some slow deep breaths. If you receive further immediate shocks, remain sitting or lying down. After receiving shocks, if you have a Home Monitoring system for your ICD, please do an automated transmission and call your ICD doctor to advise them of therapies. A family member, friend, etc., should call an ambulance if you become unresponsive at any time. You should call 911 if multiple shocks occur, or if you do not feel well after 1-2 minutes from your shock. MAGNETIC CONCERNS Avoid strong magnetic mccollum, i.e.: large speakers, TV towers, magnets in race car shops. Staying 6-12 feet away is okay. Do not touch the CB radio antenna or [facility] radio antenna that are in operation. Do not touch spark plugs or distributor wires of a running car or wire sawyer. Avoid the fenced enclosure areas of a radio or TV transmitting tower. Avoid machinery with magnets; industrial shops, arc welders, and race car repair areas. Avoid placing stereo speakers close to your device as they have magnets in them. MEDICAL IDENTIFICATION Carry your ICD card with you at all times. It is suggested that you provide a copy of your card to family members/significant others. PERSONAL CONTACT Should your ICD discharge while another person is touching you, that person may feel a slight muscular contraction that is not harmful. NOTIFICATION OF HEALTH PROFESSIONALS Notify your personal physician about your ICD. You must tell your surgeon or Regional Facilities Specialist before you undergo any procedure or surgery. This includes, but is not limited to: any surgery, colonoscopy and/or EGD s. Additional Information VACCINATE! IT SAVES LIVES! Members of the community who have not yet received the COVID-19 vaccine and would like to receive it can visit one of [facility] vaccine clinics. There are many vaccine clinic locations within the [facility]. For locations and available times, please visit [email or web address].[place].gov/. It is important to note that some COVID mobile vaccine clinics are held outdoors and may be canceled in rainy or stormy conditions. To learn more about pediatric vaccinations (ages 5-11), we invite you to visit the [facility] webpage. https://www.[facility].org/pages/4853-Aswbx-Hcqotaessqi-Fnklccueow-Igsfo-Fbj stions.htmlTo learn more about the COVID-19 vaccine, we invite you to visit the CDC website for a list of frequently asked questions. https://www.cdc.gov/coronavirus/2019-ncov/vaccines/faq.html [facility] Patient Portal Access Instructions: Stay connected with your healthcare team and access your personal medical information anytime with the [facility] Patient Portal.If you would like a full copy of your medical records, please contact the [facility] Medical Records Department, Tuesday through Tuesday between 8a.m. and 4:30p.m. Please follow the directions below to access the portal: 1.Access the email account you provided upon registration to the [facility].2.Look for an invitation email from [facility].3.Open the email and access the invitation link: Accept Invitation to [facility]4.Fill in the required mccollum to create your account. Sign into [email or web address] with your username and password that you created in the above steps to stay up to date. You can then view a summary of results, a summary of your visits, and the ability to download your summaries to your computer or send the information securely to a physician. Remember that your healthcare information is confidential, so carefully consider who you will allow to register on the [facility] Patient Portal for access to your information. You can also access the [facility] Patient Portal on the [employer] alex. Simply click on "Health Records" under "HealthData" and then click on the [facility] logo. HOW TO SAFELY DISPOSE OF PRESCRIPTION MEDICATIONS Please use one of the following methods to safely dispose of your unused medications. 1.Use a drug disposal kit: the drug disposal pouch allows you to safely discard your old and unuseddrugs. Ask your nurse to give you one when you are discharged.2.Visit a local take-back location: Many local pharmacies and police departments have programs that collect old and unwanted prescriptiondrugs. Call your local pharmacy or go to http://Healthline Networks.Mixer Labs/7E1Ft7p to find one close to you.3.Make use of household items: Use cat litter or old coffee grounds to dispose medications if other options arenot available. Mix your drugs with these household products, seal them in an airtight container andthrow it into the garbage. Call [facility]: [phone] to be sure your drugs can be disposed of in this way. Some medicines may require a different approach.4.Never flush your medications down the toilet. IF YOU HAVE BEEN PRESCRIBED AN OPIOID FOR PAIN If you have been prescribed an opioid (such as hydrocodone, oxycodone or morphine), it is critical to understand the possible side effects and risks of opioid pain medications. Even when taken as directed, opioids can have several side effects including: Tolerance, meaning you might need to take more of a medication for the same pain relief. Nausea, vomiting and/or constipation. Sleepiness, dizziness, dry mouth, confusion, depression or itching. Physical dependence, meaning you have withdrawal symptoms when a medication is stopped, can develop within a few days. KNOW YOUR RESPONSIBILITIES It is important to know exactly how much and how often to take the opioid pain medications you are prescribed. Never take opioids in higher amounts or more often than prescribed. Do not combine opioids with alcohol or other drugs that cause drowsiness, such as benzodiazepines, also known as benzos, including diazepam and alprazolam, muscle relaxants or sleep aids. Never sell or share prescription opioids. This is illegal. Store opioids in a secure place and out of reach of others (including children, family, friends and visitors). The last page of this document has been signed and retained as a CHART COPY. Signatures Patient Education Materials 3- Pacemaker/ICD New Device 08/2019(CUSTOM) Medication Leaflets metoprolol (oral/injection) My discharge plan and instructions have been reviewed and explained to me and IHUSSAIN BELINDA G understand my current condition and have read and understand these discharge instructions. I have received a written copy of the plan/instructions. If I have questions, I am aware that I should contactmy doctor. Patient/Solar Pv Installer Signature: Date/Time: Relationship to Patient: Witness Name/Signature: Date/Time: [id number] Discharge summary Date of Service 09/08/2022 Discharge Diagnosis Symptomatic bradycardia Hypomagnesemia resolved Elevated HCO3 likely due to Chronic respiratory acidosis due to YOHAN History of paroxysmal atrial fibrillation (CHAD2 VASc2 score - 3, HAS BLED - 2) Morbid Obesity (BMI 45) YOHAN on CPAP Diabetes mellitus Depression Hospital Course This is a 66-year-old female with past medical history of paroxysmal A-fib (s/p ablation atrial fibrillation 3 to 5 years ago in [place], not [facility] or , 2-3 times of cardioversion, the last one around Apr 2022) on Xarelto, flecainide and metoprolol, diabetes mellitus, obesity, YOHAN on CPAP at night, and depression went to [facility] this evening with presyncope, dizziness and lightheadedness. Patient was using the restroom when she initially experienced dizziness and lightheadedness resulted in presyncope. Lasted about 10 seconds. Patient's never actually lost consciousness nor fell. After spontaneous recovery, there was repeat episode about 20 minutes later. Patient was in the bedroom at that time and that episode lasted about another 10 seconds. At that time, patient decided to go to [place] [facility]. Patient was given IV hydration at [place] and transferred to [facility] for further management.On arrival to [facility], patient was asymptomatic. She denied chest pain, palpitation, dyspnea, orthopnea, lightheadedness. Patient also denied recent nausea, vomiting, diarrhea, fever, chills, respiratory and urinary symptoms. She takes her medication regularly. Her last cardioversion was in April 2022. Since then, patient remained asymptomatic and A-fib has been under control. However, she had similar episode about 1 month ago. At that time, patient was found to have hyponatremia. Patient got better with correction of electrolytes and planned to follow-up with photogrammetric compilation specialist. On arrival to [facility], patient was afebrile, heart rate 50 60 /min sinus rhythm, blood pressure 102/54, saturating 95% on room air. CBC and BMP was unremarkable except for elevated bicarb at33. Magnesium level was 1.6. EKG was in sinus rhythm, rate 60/min. Troponin was negative proBNP [id number]. On admission patient was started on IV fluid hydration. Repeat echocardiogram was ordered and EP was consulted. Metoprolol and flecainide were held. Lipid profile was within normal limits showing cholesterol 130, triglycerides 91, HDL 59, LDL 53, TSH 2.84, A1c 5.8. Echocardiogram done showed EF 55 to 60%, grade 1 diastolic dysfunction present. Patient underwent permanent pacemaker placement yesterday. Patient is currently in sinus rhythm with heart rate in the 80s. Patient was given 1 doseof metoprolol 50 mg this a.m. and was able to tolerate it. Repeat chest x-ray did not show any acute abnormalities. Patient will be discharged home on metoprolol 50 mg once daily. Flecainide has beendiscontinued. Patient is advised to follow-up with her trial examiner within the next 1-2 weeks and her photogrammetric compilation specialist within the next 1-2 weeks. Allergies Neosporin bacitracin (Cephalexin, Polymyxins) cephalexin neomycin Procedures Permanent pacemaker placement Consults Consult to Physician (Physician Consult) - Ordered -- 09/06/22 9:08:00 HECTOR DAUGHERTY GREGORY J MD, Routine, symptomatic bradycardia; hx of afib; on flecainide and tartate Imaging Results and Diagnostics XR Chest 1 View Result Date: September 08, 2022 Verified By: GURDEEP MCBRIDE MD CLINICAL STATEMENT: IMPRESSION: No evidence of an acute process. XR Chest 2 Views Result Date: September 07, 2022 Verified By: EPHRAIM JUNIOR MD CLINICAL STATEMENT: IMPRESSION: Interval placement of left-sided pacemaker. No pneumothorax. I have personally reviewedthe images of this examination and agree with theresident's findings and interpretation. Physical Exam Vitals and Measurements T: 36.6 C (Oral) TMIN: 33.72 C TMAX: 36.6 C (Oral) HR: 69(Monitored) RR: 18 BP: 147/68 SpO2: 94% Weight Dosing Weight: 125 kg (09/05/22) General Appearance: Patient comfortably lying on bed, in no acute distress Head: Normocephalic, atraumatic EENT: PERRLA, Neck: Supple, no JVD, Cardiac: s1s2,RRR, no murmurs or rubs or gallops Lungs: Clear to auscultation bilaterally, no wheeze or rhonchi or crackles Abdomen: Soft , Nontender, no organomegaly, bowel sounds heard Musculoskeletal: Full ROM , no gross deformities Extremities: No rash or ulcers or pedal edema present bilateral lower extremities Pending Labs and Studies None Code Status Code Status - Ordered -- 09/06/22 1:36:00 EST, Full Code, Constant Order Admission Date 09/06/2022 Discharge Date 09/08/2022 Patient Instructions Please continue taking all medications as prescribed. We have reduced your dose of metoprolol to 50 mg once daily. We have discontinued your flecainide. Please follow-up with your photogrammetric compilation specialist within next 1-2 weeks -Please follow-up with your trial examiner in 1 to 2 weeks -You are advised to avoid heavy lifting over 10 pounds with left arm for 1 month. You may shower. Please avoid bath tub or pool for 6 days. You are advised to remove dressing in 6 days. You may resume taking Xarelto this evening. Medications Changed metoprolol (Toprol-XL 50 mg oral tablet, extended release)1 tab(s) by mouth once a day with a meal for 30 Days. Refills: 1. Unchanged ascorbic acid (Vitamin C 25 mg oral tablet, chewable)1 tab(s) Chewed once a day. atorvastatin (atorvastatin 10 mg oral tablet)1 tab(s) by mouth once a day. calcium-vitamin D (Calcium 600+D oral tablet)1 tab(s) by mouth once a day. cholecalciferol (Vitamin D3)25 Microgram by mouth every 12 hours. metFORMIN (metFORMIN 1000 mg oral tablet (IR))1 tab(s) by mouth two (2) times a day. multivitamin (Multivitamin)1 tab(s) by mouth every day. rivaroxaban (Xarelto)20 Milligram by mouth once a day (in the evening). sertraline (sertraline 50 mg oral tablet)1 tab(s) by mouth once a day. Discontinued flecainide (flecainide 100 mg oral tablet)1 tab(s) by mouth every 12 hours. Follow Up Follow Up with MUKESH GARCIA MD When In 1 week Where: [address] [place] [address]- Follow Up with RHETT MORFIN MD When In 2 weeks Where: [address] [facility] [address] [facility] [place] [address]- [phone] Follow Up Appointments No qualifying data available. Follow Up Labs/Studies Discharge Labs No Follow-up Labs Discharge Studies No Follow-up Studies Discharge Diet No qualifying data available. Discharge Activity No qualifying data available. Condition on Discharge Fair Discharge Disposition Home Digitally Signed by ABHISHEK ANNE MD on 09/08/2022 12:20 PM Digitally Signed by ABHISHEK ANNE MD on 09/08/2022 12:23 PM [facility] [id number] Note ORIGINAL EXAMINATION: ONE XRAY VIEW OF THE CHEST 09/08/2022 12:01 pm COMPARISON: Prior chest x-ray dated 09/07/2022. HISTORY: ORDERING SYSTEM PROVIDED HISTORY: Reason for Exam: SOB FINDINGS: The cardiomediastinal silhouette demonstrates a normal appearance status post left-sided pacemaker placement. No consolidative opacity is identified. There is no pleural effusion or pneumothorax. No free air seen beneath the level of the diaphragm. The bony thorax appears acutely intact. IMPRESSION: No evidence of an acute process. Interpreted by: Gurdeep Mcbride MD Preliminary Report By: Gurdeep Mcbride MD Electronically signed By Gurdeep Mcbride MD Dictated Date: 09/08/2022 12:09:41 PM Prelim Date: 09/08/2022 12:10:22 PM Sign Date: 09/08/2022 12:10:22 PM Ordering Provider: ABHISHEK ANNE [facility] [id number] Note ORIGINAL EXAMINATION: ONE XRAY VIEW OF THE CHEST 09/08/2022 12:01 pm COMPARISON: Prior chest x-ray dated 09/07/2022. HISTORY: ORDERING SYSTEM PROVIDED HISTORY: Reason for Exam: SOB FINDINGS: The cardiomediastinal silhouette demonstrates a normal appearance status post left-sided pacemaker placement. No consolidative opacity is identified. There is no pleural effusion or pneumothorax. No free air seen beneath the level of the diaphragm. The bony thorax appears acutely intact. IMPRESSION: No evidence of an acute process. Interpreted by: Gurdeep Mcbride MD Preliminary Report By: Gurdeep Mcbride MD Electronically signed By Gurdeep Mcbride MD Dictated Date: 09/08/2022 12:09:41 PM Prelim Date: 09/08/2022 12:10:22 PM Sign Date: 09/08/2022 12:10:22 PM Ordering Provider: [facility]03-08-2023 Note EP PROGRESS NOTESeen for DDDR, SSS, PAF. PCP: Rian Romero CV: Radha / Donal Patient: Guadalupe Davis medical record# [id number] TELEMETRY reviewed: Sinus 60-90 bpm, demand A-paced rhythm with capture 60 bpm, QT ok. ECG: ordered. CXR images reviewed: The device generator and leads are in good position, no pneumothorax, no consolidation, no infiltrates. SUBJECTIVE: The patient had taken some [place] for post-op pain. She denies any angina, dyspnea, lightheadedness, or palpitations. Eating and ambulating some. OBJECTIVE: 100/43 p93 r18 afebrile. LUNGS: clear. COR: S1 S2, no S3. Pacemaker site dressing dry in left pectoral region, no hematoma. IMPRESSION/Recommendations: 1. s/p Lt DDDR sj 09/07/22 Dr. Hu for Sick Sinus Syndrome on needed meds. Ambulate today. HOME ifstable with resumption of metoprolol. Try not to lift over 10 pounds with left arm for 1 month. [place]. No tub bath or pool for 6 days. Remove dressing in 6 days. 2. Paroxysmal Atrial Fibrillation, CHADSVASC= 3, hx AF ablation [[address] [place] [id number]] and DCC [04/2022].Resume beta vaishali using once-daily Toprol (metoprolol succinate) 50mg qAM. Will use holter feature of pacemaker to define AF [place] in future and whether more aggressive pharmacologic/ablative tx required. May resume Xarelto this evening. 3. Diastolic hypotension. 4. Syncope. Suspect due to combination of bradycardia and diastolic hypotension. 5. QT prolongation (490ms) on Flecainide/sertraline. Improved off flecainide. Is difficult to use stronger antiarrhythmic therapy in combination with psychiatric meds. 6. Obstructive sleep apnea on cpap. 7. Diabetes. 8. Depression in remission. 9. Morbid Obesity (bmi 44.5). EP will sign off. Please call if needed. Rhett Morfin MD, RS, FACC pager [phone] Digitally Signed by RHETT MORFIN MD on 09/08/2022 07:14 AM [id number] Note ORIGINAL EXAMINATION: TWO XRAY VIEWS OF THE CHEST09/07/2022 9:31 pm COMPARISON: 09/05/2022 HISTORY: ORDERING SYSTEM PROVIDED HISTORY: Reason for Exam: Evaluate for pneumothorax/lead position post pacer/ICD insertion FINDINGS: Left-sided pacemaker with leads terminating over the right atrium and right ventricle. The cardiomediastinal silhouette is stable given difference in technique. There is no pulmonary vascular congestion. There is no focal consolidative opacity. No pleural effusion. No pneumothorax. No acute osseous abnormality by radiograph. IMPRESSION: Interval placement of left-sided pacemaker. No pneumothorax. I have personally reviewed the images of this examination and agree with the resident's findings and interpretation. Interpreted by: Ephraim Junior Preliminary Report By: Joni Marinelli Electronically signed By Ephraim Junior Dictated Date: 09/07/2022 9:44:58 PM Prelim Date: 09/07/2022 9:48:21 PM Sign Date: 09/07/2022 9:51:34 PM Ordering Provider: MAXIM [facility] [id number] Note ORIGINAL EXAMINATION: TWO XRAY VIEWS OF THE CHEST09/07/2022 9:31 pm COMPARISON: 09/05/2022 HISTORY: ORDERING SYSTEM PROVIDED HISTORY: Reason for Exam: Evaluate for pneumothorax/lead position post pacer/ICD insertion FINDINGS: Left-sided pacemaker with leads terminating over the right atrium and right ventricle. The cardiomediastinal silhouette is stable given difference in technique. There is no pulmonary vascular congestion. There is no focal consolidative opacity. No pleural effusion. No pneumothorax. No acute osseous abnormality by radiograph. IMPRESSION: Interval placement of left-sided pacemaker. No pneumothorax. I have personally reviewed the images of this examination and agree with the resident's findings and interpretation. Interpreted by: Ephraim Junior Preliminary Report By: Joni Marinelli Electronically signed By Ephraim Junior Dictated Date: 09/07/2022 9:44:58 PM Prelim Date: 09/07/2022 9:48:21 PM Sign Date: 09/07/2022 9:51:34 PM [facility]ing [facility] 66-year-old with sinus node dysfunction, syncope (due to combination bradycardia and hypotension), YOHAN on CPAP, DM, morbid obesity, paroxysmal atrial fibrillation, QT prolongation (drug-induced), whopresents to the EP lab for pacemaker for symptomatic bradycardia. Operation: Dual chamber pacemaker implant (left sided; [place]) Recs - restrictions: no strenuous lifting/pushing/pulling with the left arm for 4 weeks - Patient should remove Aquacel dressing in 1 week; okay to shower with this on - we will arrange f/u in the device clinic -- 14 day incision check, 90 day device check Please call with any Q's. Thanks, Maxim Hu MD Cardiac Electrophysiology [phone] Digitally Signed by MAXIM HU MD on 09/07/2022 03:32 PM [facility] [id number] Cardiology Progress note Date of Service 09/07/2022 Subjective Patient was seen and examined at bedside this morning. Patient denied any lightheadedness or chest pain today. Patient's current heart rate was in the 50s 60s. Patient is scheduled for pacemaker implantation today . Objective Vitals and Measurements T: 36.7 C (Oral) TMIN: 36.4 C (Oral) TMAX: 36.9 C (Oral) HR: 56(Monitored) RR: 16 BP: 126/64 SpO2: 96% Intake and Output 7AM Yesterday to 7AM Today Intake and Output (Last 24 hours) Intake Administration Information 400.00 Oral Intake 475.00 Output Urine Voided 2024. Stool Count 0.00 Urine Count 1.00 Total Summary Total Intake 875.00 Total Output 2024. Fluid Balance -1150.00 Physical Exam General Appearance: Patient comfortably lying on bed, in no acute distress Head: Normocephalic, atraumatic EENT: PERRLA, Neck: Supple, no JVD, Cardiac: s1s2,RRR, no murmurs or rubs or gallops Lungs: Clear to auscultation bilaterally, no wheeze or rhonchi or crackles Abdomen: Soft , Nontender, no organomegaly, bowel sounds heard Musculoskeletal: Full ROM , no gross deformities Extremities: No rash or ulcers or pedal edema present bilateral lower extremities Weight Dosing Weight: 125 kg (09/05/22) Medications Medications (8) Active Scheduled: (4) atorvastatin 10 mg tablet 10 mg 1 tab(s), Oral, qDay cefuroxime 750 mg, IV Piggyback, Once insulin lispro 100 units/mL Soln (3 mL) Give 0-10 units/dose, Subcutaneous, TIDAC sertraline 50 mg tablet 50 mg 1 tab(s), Oral, qDay Continuous: (3) DOPamine 400 mg/250 mL (premixed bag) 400 mg [5 mcg/kg/min] + Dextrose 5% Premix Diluent 250 mL 250mL, Intravenous, 23.44 mL/hr NS (0.9% nacl) 1,000 mL 1,000 mL, Intravenous, 50 mL/hr NS (0.9% nacl) 1,000 mL 1,000 mL, Intravenous, 20 mL/hr PRN: (1) melatonin 3 mg tablet 3 mg 1 tab(s), Oral, qHS Lab Results 09/07 04:15 WBC: 6.4 Hgb: 11.4 L Hct: 34.7 Platelet: 262 Neutrophil %: 50.3 Glucose Level: 108 Sodium Level: 142 Potassium Level: 4.7 BUN: 11.0 Creatinine Lvl (s): 0.68 09/06 10:18 Protime: 12.9 PT International Ratio: 1.1 09/06 05:02 WBC: 8.8 Hgb: 11.7 L Hct: 35.7 Platelet: 265 Neutrophil %: 58.6 Glucose Level: 99 Sodium Level: 144 Potassium Level: 4.3 BUN: 16.0 Creatinine Lvl (s): 0.70 09/06 02:15 WBC: 9.3 Hgb: 12.6 Hct: 38.0 Platelet: 281 Neutrophil %: 66.8 Glucose Level: 143 H Sodium Level: 138 Potassium Level: 4.3 BUN: 13.0 Creatinine Lvl (s): 0.65 EKG EKG - Completed -- 09/06/22 0:48:00 EST Electrocardiogram (EKG) - InProcess -- 09/06/22 16:03:00 EST, CP 2 Electrocardiogram (EKG) - InProcess -- 09/07/22 0:50:00 EST Assessment/Plan Symptomatic bradycardia Hypomagnesemia resolved Elevated HCO3 likely due to Chronic respiratory acidosis due to YOHAN History of paroxysmal atrial fibrillation (CHAD2 VASc2 score - 3, HAS BLED - 2) Morbid Obesity (BMI 45) YOHAN on CPAP Diabetes mellitus Depression DVT prophylaxis Full CODE STATUS Etiology of symptomatic bradycardia could be multifactorial, medication side effect, possible underlying cardiomyopathy and electrolyte imbalance. At [place], patient was in junctional rhythm with arate around 45/min. Patient initially started on dopamine however and chest pressure and blood pressure elevation to 170s therefore it was discontinued. Patient is currently denying any lightheadedness or shortness of breath. Currently, patient is in sinus rhythm, rate 55-60/min. Hypomagnesemia is resolved Continue to hold metoprolol and flecainide. Troponin was 3.46, proBNP was 153. Lipid profile was within normal limits showing cholesterol 130, triglycerides 91, HDL 59, LDL 53,TSH 2.84, A1c 5.8 Echocardiogram done on 09/06/2022 showed EF 55 to 60%, grade 1 diastolic dysfunction present. Electrophysiology consulted yesterday, patient scheduled for permanent pacemaker placement today. We will continue to monitor telemetry. History of paroxysmal atrial fibrillation, continue Xarelto for anticoagulation. We will continue to hold of metoprolol and flecainide. Patient is currently on heparin by weight Continue home setting of CPAP. Resume home dose sertraline for depression. DVT prophylaxis -heparin by weight Patient is full CODE Digitally Signed by ABHISHEK ANNE MD on 09/07/2022 10:21 AM [facility] [id number] Anesthesiology Consult note Patient: GUADALUPE DAVIS Age: 66 years Sex: Female : 1955 Associated Diagnoses: None Author: TAMIKO SHAFFER MD Preoperative Information Time of last food or liquid consumption: 09/07/2022 00:00:00 Anesthesia history Patient's history: negative. Family's history: negative. History of Present Illness The patient presents for preanesthesia evaluation with Patient is a 66-year-old female who presentsfor elective pacemaker placement to address symptomatic bradycardia. States she is active with somelimitations, denies ischemic symptoms, cardiopulmonary limitations, prior history of CAD or cardiac interventions. She does have a history of bradycardia as mentioned, hypertension, hypercholesterolemia, diabetes, and obstructive sleep apnea. She denies prior anesthetic issues, has no symptoms of reflux on the day of surgery, her preoperative blood glucose 102 mg/dL. I reviewed her chart, studies, labs, consultations and she appears optimized proceed with deep sedation, possible general anesthesia for planned procedure.. Health Status Allergies: Allergic Reactions (Selected) Severity Not Documented Bacitracin- Polymyxins and cephalexin. Cephalexin- No reactions were documented. Neomycin- No reactions were documented. Neosporin- No reactions were documented., Allergies (4) ActiveReaction bacitracinCephalexin cephalexinNone Documented neomycinNone Documented NeosporinNone Documented Current medications: (Selected) Inpatient Medications Ordered DOPamine for IV 400 mg [5 mcg/kg/min] + Dextrose Premix titrate 250 mL: 23.44 mL/hr, Intravenous HumaLOG 100 units/mL subcutaneous solution: Give 0-10 units/dose, Subcutaneous, TIDAC NS 1,000 mL: 20 mL/hr, Intravenous NS 1,000 mL: 50 mL/hr, Intravenous atorvastatin: 10 mg, 1 tab(s), Oral, qDay melatonin: 3 mg, 1 tab(s), Oral, qHS, PRN: Sleep sertraline: 50 mg, 1 tab(s), Oral, qDay Documented Medications Documented Calcium 600+D oral tablet: 1 tab(s), Oral, qDay, 0 Refill(s) Multivitamin: 1 tab(s), Oral, Daily Vitamin C 25 mg oral tablet, chewable: 25 mg, 1 tab(s), Chewed, qDay, 30 tab(s), 0 Refill(s) Vitamin D3: 25 mcg, 1 tab(s), Oral, q12h, 0 Refill(s) Xarelto: 20 mg, Oral, qPM atorvastatin 10 mg oral tablet: 10 mg, 1 tab(s), Oral, qDay, 30 tab(s), 0 Refill(s) flecainide 100 mg oral tablet: 100 mg, 1 tab(s), Oral, q12h, 60 tab(s), 0 Refill(s) metFORMIN 1000 mg oral tablet (IR): 1,000 mg, 1 tab(s), Oral, BID, 60 tab(s), 0 Refill(s) metoprolol tartrate 50 mg oral tablet: 50 mg, 1 tab(s), Oral, BID, 60 tab(s), 0 Refill(s) sertraline 50 mg oral tablet: 50 mg, 1 tab(s), Oral, qDay, 30 tab(s), 0 Refill(s), Medications (7) Active Scheduled: (3) atorvastatin 10 mg tablet 10 mg 1 tab(s), Oral, qDay insulin lispro 100 units/mL Soln (3 mL) Give 0-10 units/dose, Subcutaneous, TIDAC sertraline 50 mg tablet 50 mg 1 tab(s), Oral, qDay Continuous: (3) DOPamine 400 mg/250 mL (premixed bag) 400 mg [5 mcg/kg/min] + Dextrose 5% Premix Diluent 250 mL 250mL, Intravenous, 23.44 mL/hr NS (0.9% nacl) 1,000 mL 1,000 mL, Intravenous, 50 mL/hr NS (0.9% nacl) 1,000 mL 1,000 mL, Intravenous, 20 mL/hr PRN: (1) melatonin 3 mg tablet 3 mg 1 tab(s), Oral, qHS Problem list: Active Problems (5) Atrial fibrillation and flutter Bradycardia Diabetes mellitus Neuropathy Sleep apnea Histories Past Medical History: No active or resolved past medical history items have been selected or recorded. Family History: No family history items have been selected or recorded. Procedure history: Ablation ([id number]). Cardioversion ([id number]). Social History Social & Psychosocial Habits Alcohol 09/05/2022 Use: Current Frequency: 1-2 times per year . Physical Examination Vital Signs 09/07/2022 12:55 EST Temperature (Route Not Specified) 35.3 DegC DegC Heart Rate Monitored 61 bpm bpm Respiratory Rate - Anes 19 br/min br/min 09/07/2022 12:52 EST Systolic Blood Pressure Non-Invasive 109 mmHg mmHg Diastolic Blood Pressure Non-Invasive 55 mmHg mmHg 09/07/2022 12:50 EST Temperature (Route Not Specified) 35.05 DegC DegC Heart Rate Monitored 64 bpm bpm Respiratory Rate - Anes 18 br/min br/min 09/07/2022 12:49 EST Systolic Blood Pressure Non-Invasive 113 mmHg mmHg Diastolic Blood Pressure Non-Invasive 54 mmHg mmHg 09/07/2022 12:46 EST Systolic Blood Pressure Non-Invasive 120 mmHg mmHg Diastolic Blood Pressure Non-Invasive 57 mmHg mmHg 09/07/2022 12:45 EST Temperature (Route Not Specified) 34.71 DegC DegC Heart Rate Monitored 64 bpm bpm Respiratory Rate - Anes 20 br/min br/min 09/07/2022 12:43 EST Systolic Blood Pressure Non-Invasive 126 mmHg mmHg Diastolic Blood Pressure Non-Invasive 62 mmHg mmHg 09/07/2022 12:40 EST Temperature (Route Not Specified) 34.36 DegC DegC Heart Rate Monitored 71 bpm bpm Respiratory Rate - Anes 18 br/min br/min Systolic Blood Pressure Non-Invasive 137 mmHg mmHg Diastolic Blood Pressure Non-Invasive 58 mmHg mmHg 09/07/2022 12:37 EST Systolic Blood Pressure Non-Invasive 145 mmHg mmHg Diastolic Blood Pressure Non-Invasive 59 mmHg mmHg 09/07/2022 12:35 EST Temperature (Route Not Specified) 33.72 DegC DegC Heart Rate Monitored 72 bpm bpm Respiratory Rate - Anes 19 br/min br/min 09/07/2022 12:34 EST Systolic Blood Pressure Non-Invasive 144 mmHg mmHg Diastolic Blood Pressure Non-Invasive 72 mmHg mmHg 09/07/2022 12:31 EST Systolic Blood Pressure Non-Invasive 133 mmHg mmHg Diastolic Blood Pressure Non-Invasive 63 mmHg mmHg 09/07/2022 12:30 EST Heart Rate Monitored 73 bpm bpm Respiratory Rate - Anes 15 br/min br/min 09/07/2022 12:28 EST Systolic Blood Pressure Non-Invasive 139 mmHg mmHg Diastolic Blood Pressure Non-Invasive 65 mmHg mmHg 09/07/2022 11:33 EST Temperature Oral 36.7 DegC Heart Rate Monitored 62 bpm Respiratory Rate 18 br/min Systolic Blood Pressure Non-Invasive 110 mmHg Diastolic Blood Pressure Non-Invasive 62 mmHg Reason For Taking VItal Signs Routine 09/07/2022 11:05 EST Heart Rate Monitored 56 bpm LOW 09/07/2022 7:30 EST Heart Rate Monitored 56 bpm LOW 09/07/2022 6:42 EST Temperature Oral 36.7 DegC Heart Rate Monitored 61 bpm Respiratory Rate 16 br/min Systolic Blood Pressure Non-Invasive 126 mmHg Diastolic Blood Pressure Non-Invasive 64 mmHg 09/07/2022 4:19 EST Temperature Oral 36.9 DegC Heart Rate Monitored 56 bpm LOW Respiratory Rate 16 br/min Systolic Blood Pressure Non-Invasive 110 mmHg Diastolic Blood Pressure Non-Invasive 60 mmHg Reason For Taking VItal Signs Routine 09/07/2022 0:53 EST Heart Rate Monitored 52 bpm LOW 09/06/2022 22:50 EST Temperature Oral 36.8 DegC Heart Rate Monitored 58 bpm LOW Respiratory Rate 18 br/min Systolic Blood Pressure Non-Invasive 118 mmHg Diastolic Blood Pressure Non-Invasive 52 mmHg LOW Blood Pressure Method Manual Blood Pressure Location Left arm Blood Pressure Cuff Size Medium Reason For Taking VItal Signs Routine 09/06/2022 19:24 EST Heart Rate Monitored 54 bpm LOW 09/06/2022 18:47 EST Temperature Oral 36.8 DegC Heart Rate Monitored 66 bpm Respiratory Rate 16 br/min Systolic Blood Pressure Non-Invasive 118 mmHg Diastolic Blood Pressure Non-Invasive 66 mmHg Blood Pressure Method Manual Blood Pressure Location Left arm Blood Pressure Cuff Size Medium Reason For Taking VItal Signs Routine 09/06/2022 17:32 EST Heart Rate Monitored 57 bpm LOW 09/06/2022 16:00 EST Heart Rate Monitored 53 bpm LOW Reason For Taking VItal Signs Routine 09/06/2022 15:59 EST Heart Rate Monitored 53 bpm LOW Reason For Taking VItal Signs Routine 09/06/2022 14:30 EST Temperature Oral 36.4 DegC Heart Rate Monitored 52 bpm LOW Respiratory Rate 18 br/min Systolic Blood Pressure Non-Invasive 108 mmHg Diastolic Blood Pressure Non-Invasive 62 mmHg Blood Pressure Method Manual Blood Pressure Location Left arm Blood Pressure Cuff Size Medium Reason For Taking VItal Signs Routine 09/06/2022 11:45 EST Temperature Oral 36.5 DegC Heart Rate Monitored 50 bpm LOW Respiratory Rate 18 br/min Systolic Blood Pressure Non-Invasive 110 mmHg Diastolic Blood Pressure Non-Invasive 60 mmHg 09/06/2022 11:14 EST Heart Rate Monitored 48 bpm LOW 09/06/2022 7:19 EST Temperature Oral 36.5 DegC Heart Rate Monitored 51 bpm LOW Respiratory Rate 18 br/min Systolic Blood Pressure Non-Invasive 134 mmHg Diastolic Blood Pressure Non-Invasive 55 mmHg LOW 09/06/2022 6:46 EST Heart Rate Monitored 54 bpm LOW 09/06/2022 4:06 EST Temperature Oral 36.5 DegC Heart Rate Monitored 53 bpm LOW Respiratory Rate 18 br/min Systolic Blood Pressure Non-Invasive 110 mmHg Diastolic Blood Pressure Non-Invasive 62 mmHg Blood Pressure Method Manual Blood Pressure Location Left arm Blood Pressure Cuff Size Medium Reason For Taking VItal Signs Routine Vital Signs(last 24 hrs) Last Charted Temp Oral36.7 DegC (SEP 07 11:33) Heart Rate Irpdlnwte93 bpm (SEP 07 12:55) Resp Rate 18 br/min (SEP 07 11:33) [id number] mmHg (SEP 07 12:52) DBP55 mmHg (SEP 07 12:52) Pain assessment: Pain Assessment 09/07/2022 11:05 EST Primary Pain Intensity 0 Primary Pain Nonverbal Response Nods No Pain Scale Type 0-10 Pain scale 09/07/2022 7:30 EST Primary Pain Intensity 0 Primary Pain Nonverbal Response Nods No Pain Scale Type 0-10 Pain scale 09/07/2022 4:19 EST Primary Pain Intensity 0 Primary Pain Nonverbal Response Nods No Pain Scale Type 0-10 Pain scale 09/06/2022 22:50 EST Primary Pain Intensity 0 Primary Pain Nonverbal Response Nods No Pain Scale Type 0-10 Pain scale 09/06/2022 19:24 EST Primary Pain Intensity 0 Primary Pain Nonverbal Response Nods No Pain Scale Type 0-10 Pain scale 09/06/2022 17:19 EST Primary Pain Intensity 0 Primary Pain Nonverbal Response Appears restful Pain Scale Type 0-10 Pain scale 09/06/2022 16:00 EST Primary Pain Location Chest Primary Pain Intensity 2 Primary Pain Nonverbal Response Nods Yes Pain Scale Type 0-10 Pain scale 09/06/2022 15:59 EST Primary Pain Location Chest Primary Pain Intensity 2 Primary Pain Nonverbal Response Nods Yes Pain Scale Type 0-10 Pain scale 09/06/2022 11:14 EST Primary Pain Intensity 0 Pain Scale Type 0-10 Pain scale 09/06/2022 6:46 EST Primary Pain Intensity 0 Pain Scale Type 0-10 Pain scale 09/06/2022 5:55 EST Primary Pain Location Chest Primary Pain Laterality Bilateral Primary Pain Intensity 3 Primary Pain Quality Aching, Pressure Pain Scale Type 0-10 Pain scale 09/06/2022 4:06 EST Primary Pain Intensity 0 Pain Scale Type 0-10 Pain scale . General: Alert and oriented, No acute distress. Airway: Normal mouth. Mallampati classification: II (soft palate, fauces, uvula visible). Head: Normocephalic, Atraumatic. Dentition Evaluation: Missing teeth, Dentures, upper. Neck: Supple, Non-tender. Respiratory: Lungs are clear to auscultation, Respirations are non-labored. Cardiovascular: Normal rate, Regular rhythm. Heart Sounds: Normal. Neurologic: Alert, Oriented. Review / Management Results review: Labs (Last four charted values) WBC 6.4(SEP 07)8.8(SEP 06)9.3(SEP 06) Hgb L 11.4(SEP 07)L 11.7(SEP 06)12.6(SEP 06) Hct 34.7(SEP 07)35.7(SEP 06)38.0(SEP 06) Plt 262(SEP 07)265(SEP 06)281(SEP 06) Na 142(SEP 07)144(SEP 06)138(SEP 06) K 4.7(SEP 07)4.3(SEP 06)4.3(SEP 06) CO2 32(SEP 07)31(SEP 06)29(SEP 06) Cl 107(SEP 07)107(SEP 06)105(SEP 06) Cr 0.68(SEP 07)0.70(SEP 06)0.65(SEP 06) BUN 11.0(SEP 07)16.0(SEP 06)13.0(SEP 06) Glucose 108(SEP 07)99(SEP 06)H 143(SEP 06) Mg 1.8(SEP 07)2.2(SEP 06)1.6(SEP 06) Phos 3.4(SEP 06) Ca 9.5(SEP 07)9.4(SEP 06)9.8(SEP 06) PT 12.9(SEP 06) INR 1.1(SEP 06) PTT H 57.5(SEP 06)34.3(SEP 06)30.9(SEP 06) , Lab results 09/07/2022 12:55 EST Temperature (Route Not Specified) 35.3 DegC DegC Heart Rate Monitored 61 bpm bpm Respiratory Rate - Anes 19 br/min br/min Oxygen Saturation 100 % % 09/07/2022 12:52 EST Systolic Blood Pressure Non-Invasive 109 mmHg mmHg Diastolic Blood Pressure Non-Invasive 55 mmHg mmHg 09/07/2022 12:50 EST Temperature (Route Not Specified) 35.05 DegC DegC Heart Rate Monitored 64 bpm bpm Respiratory Rate - Anes 18 br/min br/min Oxygen Saturation 100 % % 09/07/2022 12:49 EST Systolic Blood Pressure Non-Invasive 113 mmHg mmHg Diastolic Blood Pressure Non-Invasive 54 mmHg mmHg 09/07/2022 12:46 EST Systolic Blood Pressure Non-Invasive 120 mmHg mmHg Diastolic Blood Pressure Non-Invasive 57 mmHg mmHg 09/07/2022 12:45 EST Temperature (Route Not Specified) 34.71 DegC DegC Heart Rate Monitored 64 bpm bpm Respiratory Rate - Anes 20 br/min br/min Oxygen Saturation 100 % % 09/07/2022 12:43 EST Systolic Blood Pressure Non-Invasive 126 mmHg mmHg Diastolic Blood Pressure Non-Invasive 62 mmHg mmHg 09/07/2022 12:40 EST Temperature (Route Not Specified) 34.36 DegC DegC Heart Rate Monitored 71 bpm bpm Respiratory Rate - Anes 18 br/min br/min Systolic Blood Pressure Non-Invasive 137 mmHg mmHg Diastolic Blood Pressure Non-Invasive 58 mmHg mmHg Oxygen Saturation 99 % % 09/07/2022 12:37 EST Systolic Blood Pressure Non-Invasive 145 mmHg mmHg Diastolic Blood Pressure Non-Invasive 59 mmHg mmHg 09/07/2022 12:36 EST Permanent Pacemaker - CV In Process (In Progress) 09/07/2022 12:35 EST Temperature (Route Not Specified) 33.72 DegC DegC Heart Rate Monitored 72 bpm bpm Respiratory Rate - Anes 19 br/min br/min Oxygen Saturation 99 % % 09/07/2022 12:34 EST Systolic Blood Pressure Non-Invasive 144 mmHg mmHg Diastolic Blood Pressure Non-Invasive 72 mmHg mmHg 09/07/2022 12:32 EST ketamine 30 mg mg 09/07/2022 12:31 EST Systolic Blood Pressure Non-Invasive 133 mmHg mmHg Diastolic Blood Pressure Non-Invasive 63 mmHg mmHg 09/07/2022 12:30 EST Heart Rate Monitored 73 bpm bpm Respiratory Rate - Anes 15 br/min br/min Oxygen Saturation 99 % % 09/07/2022 12:29 EST Out of Room Remains in Current Location Heart Transportation Superintendent 09/07/2022 12:28 EST Systolic Blood Pressure Non-Invasive 139 mmHg mmHg Diastolic Blood Pressure Non-Invasive 65 mmHg mmHg 09/07/2022 12:22 EST SN - CTm - Anesthesia Start Time Anesthesia Start 09/07/2022 12:22 EST midazolam 2 mg mg 09/07/2022 12:15 EST cefuroxime 750 mg mg Dextrose 5% in Water 50 mL mL 09/07/2022 12:00 EST Accompanied By Staff Monitor, ANIMAL SCIENTIST/DESIGN ENGINEERING TECHNICIAN/PCT, Transporter Out of Room Went to Current Location Heart Transportation Superintendent Transport via Bed insulin lispro Not Done: Below Sliding Scale (Not Done) 09/07/2022 11:41 EST Discharge To, Anticipated Home independently Transition Planning Note Transition Planning Ongoing Assessment 09/07/2022 11:33 EST Blood Glucose, Capillary 102 mg/dL Blood Glucose Testing Reason Routine Temperature Oral 36.7 DegC Heart Rate Monitored 62 bpm Respiratory Rate 18 br/min Systolic Blood Pressure Non-Invasive 110 mmHg Diastolic Blood Pressure Non-Invasive 62 mmHg Reason For Taking VItal Signs Routine Oxygen Saturation 95 % Activity Status ADL Awake, Resting Standard Safety ID band on, Allergy Band on, Call device within reach, Bed in low position, Wheels locked, Upper/Half-Length side-rails up, Phone within reach, personal items within reach, Safety level maintained, Non-Slip footwear, Precautions maintained High Risk Safety Room check performed Demonstrates Correct Call Light Use Yes 09/07/2022 11:05 EST Heart Rate Monitored 56 bpm LOW Primary Pain Intensity 0 Primary Pain Nonverbal Response Nods No Pain Scale Type 0-10 Pain scale Monitor Alarms On and Limits Checked Cardiovascular Symptoms Edema Nail Bed Color [place] Capillary Refill < 2 seconds Heart Sounds ICU S1S2 Heart Rhythm Regular Dorsalis Pedis Pulse, Left 2+ Normal Dorsalis Pedis Pulse, Right 2+ Normal Posttibial Pulse, Left 1+ Thready Posttibial Pulse, Right 1+ Thready Leg edema Bilateral Edema Ratin+ trace/2mm Cardiac Rhythm Sinus bradycardia Monitoring Lead III, V1/MCL1 OK Interval 0.19 second(s) QRS Duration 0.09 second(s) QT Interval 0.43 second(s) QTc Interval 0.43 second(s) ST Segment Measurement 0.[address] Segment Measurement [address] Segment Measurement 0.[address] Segment Measurement 0.1 mm Alarms On and Functional Yes Heart Rate Alarm Set At - Low 50 Heart Rate Alarm Set At - High 120 Respirations Unlabored Respiratory Pattern Regular Breath Sounds Auscultated Anterior and posterior All Lobes Breath Sounds Clear, Diminished Cough None Tracheal Position Midline Facial Movement Symmetric resting/crying Skin Symptoms Bruising All Extremity Description Normal for ethnicity Skin Temperature Warm Temperature All Extremities Warm Skin Description [place], Normal for ethnicity, Dry Skin Integrity Intact Skin Turgor Elastic Mucous Membrane Color [place] Mucous Membrane Description Moist Antecubital Right 18 gauge Peripheral IV Activity: Assessed Peripheral IV Dressing Condition: Clean, Dry, Intact Peripheral IV Dressing Activity: Transparent dressing Peripheral IV Line Status/Patency: Continuous infusion Peripheral IV Site Condition: No complications Peripheral IV Equipment: IV Pump Neurological Language Able to speak clearly, Follows simple commands Neurological Symptoms Patient denies Gait Steady Extremity Movement Equal Swallowing Difficulty None Characteristics of Communication Appropriate Characteristics of Speech Clear Facial Symmetry Symmetric Level of Consciousness Alert Aspiration Risk None Strength All Extremities Moderate Left Upper Extremity Sensation Intact Right Upper Extremity Sensation Intact Left Lower Extremity Sensation Intact Right Lower Extremity Sensation Intact CN V Facial Sensation Corneal reflex present, Light touch equal bilaterally CN VII Facial Expression and Symmetry Facial movement symmetrical CN IX, X Swallowing, Gag Reflex Swallowing present Affect/Behavior Appropriate, Calm, Cooperative Orientation Oriented x 4 09/07/2022 10:17 EST Cardiology Progress Note Progress Note 09/07/2022 10:04 EST Activity Status ADL Resting Standard Safety ID band on, Allergy Band on, Call device within reach, Bed in low position, Wheels locked, Upper/Half-Length side-rails up, Phone within reach, personal items within reach, Safety level maintained, Non-Slip footwear High Risk Safety Room check performed Demonstrates Correct Call Light Use Yes 09/07/2022 9:10 EST Mechanical VTE Prophylaxis Education Not Done: Not Appropriate at this Time (Not Done) Sequential Compression Device Form Not Done (Not Done) 09/07/2022 9:09 EST CAM Mental Status Change & Fluctuation No CAM Inattention No CAM Disorganized Thinking No CAM Altered Level of Consciousness No Confusion Assessment Method Score Negative 09/07/2022 8:52 EST Post Rehab Outcome Continue same step Cardiac Rehab - Phase I Cardiac Rehab - Phase I 09/07/2022 8:44 EST magnesium sulfate 2 gram(s) gram(s) 09/07/2022 8:29 EST Bed Bath Independent Hair Care Independent Oral Care Independent Skin Care Done Skin Care Product Applied CHG bath Ania Care Independent Linen Change Done 09/07/2022 8:06 EST Activity Status ADL Awake Standard Safety ID band on, Allergy Band on, Call device within reach, Bed in low position, Wheels locked, Upper/Half-Length side-rails up, Phone within reach, personal items within reach, Safety level maintained, Non-Slip footwear High Risk Safety Room check performed Demonstrates Correct Call Light Use Yes 09/07/2022 8:00 EST insulin lispro Not Done: Below Sliding Scale (Not Done) 09/07/2022 7:32 EST sertraline 50 mg mg 09/07/2022 7:30 EST Heart Rate Monitored 56 bpm LOW Primary Pain Intensity 0 Primary Pain Nonverbal Response Nods No Pain Scale Type 0-10 Pain scale Monitor Alarms On and Limits Checked Cardiovascular Symptoms Edema Nail Bed Color [place] Capillary Refill < 2 seconds Heart Sounds ICU S1S2 Heart Rhythm Regular Dorsalis Pedis Pulse, Left 2+ Normal Dorsalis Pedis Pulse, Right 2+ Normal Posttibial Pulse, Left 1+ Thready Posttibial Pulse, Right 1+ Thready Radial Pulse, Left 2+ Normal Radial Pulse, Right 2+ Normal Leg edema Bilateral Edema Ratin+ trace/2mm Respiratory Symptoms Difficulty breathing with activity Respirations Unlabored Respiratory Pattern Regular Breath Sounds Auscultated Anterior and posterior All Lobes Breath Sounds Clear, Diminished Cough None Tracheal Position Midline Abdomen Description Non-distended Abdomen Palpation Non-Tender Bowel Sounds All Quadrants Present Urinary Elimination Voiding, no difficulties Facial Movement Symmetric resting/crying Skin Symptoms Bruising All Extremity Description Normal for ethnicity Skin Temperature Warm Temperature All Extremities Warm Skin Description [place], Normal for ethnicity, Dry Skin Integrity Intact Skin Turgor Elastic Mucous Membrane Color [place] Mucous Membrane Description Moist Antecubital Right 18 gauge Peripheral IV Activity: Assessed Peripheral IV Dressing Condition: Clean, Dry, Intact Peripheral IV Dressing Activity: Transparent dressing Peripheral IV Line Status/Patency: Continuous infusion Peripheral IV Site Condition: No complications Peripheral IV Equipment: IV Pump Neurological Language Able to speak clearly, Follows simple commands Neurological Symptoms Patient denies Gait Steady Extremity Movement Equal Swallowing Difficulty None Characteristics of Communication Appropriate Characteristics of Speech Clear Facial Symmetry Symmetric Level of Consciousness Alert Aspiration Risk None VIRI Yes Left Pupil Description Regular, Round Right Pupil Description Regular, Round Left Pupil Reaction Brisk Right Pupil Reaction Brisk Pupil Size, Left 3 mm Pupil Size, Right 3 mm Strength All Extremities Moderate Left Upper Extremity Sensation Intact Right Upper Extremity Sensation Intact Left Lower Extremity Sensation Intact Right Lower Extremity Sensation Intact CN V Facial Sensation Corneal reflex present, Light touch equal bilaterally CN VII Facial Expression and Symmetry Facial movement symmetrical CN IX, X Swallowing, Gag Reflex Swallowing present Violence Risk Confused No Violence Risk Irritable No Violence Risk Boisterous No Violence Risk Verbal Threats No Violence Risk Physical Threats No Violence Risk Attacking Objects No Violence Risk Predictor Score 0 Violence Risk Intervention None Violence Risk Current Interventions None Affect/Behavior Appropriate, Calm, Cooperative Orientation Oriented x 4 Appetite Good Eating Difficulties None 09/07/2022 7:13 EST Able To Drink Order Detail Yes Able To Sign Consents Order Detail Yes Code Status Order Detail Full code IV Order Detail Yes Dialysis Schedule Order Detail N/A Has Diabetes Order Detail Yes Isolation Precautions Order Detail None Nurse Collect Order Detail 0 Oxygen Order Detail No Order Detail No Prior Valve Replacement Order Detail No Transport Mode Order Detail Bed Nurse and Monitor Zoology Technical Officer Details Form Zoology Technical Officer Details Form 09/07/2022 7:00 EST Urine Voided 300 mL 09/07/2022 6:59 EST Sodium Chloride 0.9% 400 mL mL 09/07/2022 6:42 EST Blood Glucose, Capillary 108 mg/dL Blood Glucose Testing Reason Routine Temperature Oral 36.7 DegC Heart Rate Monitored 61 bpm Respiratory Rate 16 br/min Systolic Blood Pressure Non-Invasive 126 mmHg Diastolic Blood Pressure Non-Invasive 64 mmHg Oxygen Therapy Room air Oxygen Saturation 96 % Activity Status ADL Awake, Dangle, Lights dimmed, Repositions self Standard Safety ID band on, Allergy Band on, Call device within reach, Bed in low position, Wheels locked, Upper/Half-Length side-rails up, Phone within reach, personal items within reach, Safety level maintained, Hazards removed from floor, Non-Slip footwear High Risk Safety Non-Slip footwear, Room check performed Demonstrates Correct Call Light Use Yes 09/07/2022 6:41 EST Cardiac Rhythm Sinus rhythm Monitoring Lead III, V1/MCL1 OK Interval 0.19 second(s) QRS Duration 0.09 second(s) QT Interval 0.43 second(s) QTc Interval 0.44 second(s) ST Segment Measurement 0.[address] Segment Measurement -0.[address] Segment Measurement 0.[address] Segment Measurement 0.1 mm Alarms On and Functional Yes Heart Rate Alarm Set At - Low 50 Heart Rate Alarm Set At - High 120 09/07/2022 6:14 EST Activity Status ADL Resting Standard Safety ID band on, Allergy Band on, Call device within reach, Bed in low position, Wheels locked, Upper/Half-Length side-rails up, Phone within reach, personal items within reach, Safety level maintained, Non-Slip footwear High Risk Safety Room check performed Demonstrates Correct Call Light Use Yes 09/07/2022 5:29 EST Mechanical VTE Prophylaxis Education Not Done: Not Appropriate at this Time (Not Done) Sequential Compression Device Form Not Done (Not Done) 09/07/2022 4:24 EST Mechanical VTE Prophylaxis Education Not Done: Other (Not Done) Sequential Compression Device Form Not Done (Not Done) 09/07/2022 4:19 EST Temperature Oral 36.9 DegC Heart Rate Monitored 56 bpm LOW Respiratory Rate 16 br/min Systolic Blood Pressure Non-Invasive 110 mmHg Diastolic Blood Pressure Non-Invasive 60 mmHg Reason For Taking VItal Signs Routine Primary Pain Intensity 0 Primary Pain Nonverbal Response Nods No Pain Scale Type 0-10 Pain scale Monitor Alarms On and Limits Checked Cardiovascular Symptoms Edema Nail Bed Color [place] Capillary Refill < 2 seconds Heart Sounds ICU S1S2 Heart Rhythm Regular Dorsalis Pedis Pulse, Left 2+ Normal Dorsalis Pedis Pulse, Right 2+ Normal Posttibial Pulse, Left 1+ Thready Posttibial Pulse, Right 1+ Thready Respiratory Symptoms Difficulty breathing with activity Respirations Unlabored Respiratory Pattern Regular Breath Sounds Auscultated Anterior and posterior All Lobes Breath Sounds Clear, Diminished Cough None Oxygen Therapy Room air Oxygen Saturation 97 % Tracheal Position Midline Facial Movement Symmetric resting/crying Skin Symptoms Bruising All Extremity Description Normal for ethnicity Skin Temperature Warm Temperature All Extremities Warm Skin Description [place], Normal for ethnicity, Dry Skin Integrity Intact Skin Turgor Elastic Mucous Membrane Color [place] Mucous Membrane Description Moist Sensory Perception Bharath No impairment Moisture Bharath Rarely moist Activity Bharath Walks occasionally Mobility Bharath Slightly limited Nutrition Bharath Adequate Friction and Shear Bharath No apparent problem Bharath Score 20 Hospital Acquired Pressure Injury Risk None/minimal risk (score 19-23) Antecubital Right 18 gauge Peripheral IV Activity: Assessed Peripheral IV Dressing Condition: Clean, Dry, Intact Peripheral IV Dressing Activity: Transparent dressing Peripheral IV Line Status/Patency: Continuous infusion Peripheral IV Site Condition: No complications Peripheral IV Equipment: IV Pump Neurological Language Able to speak clearly, Follows simple commands Neurological Symptoms Patient denies Gait Steady Extremity Movement Equal Swallowing Difficulty None Characteristics of Communication Appropriate Characteristics of Speech Clear Facial Symmetry Symmetric Level of Consciousness Alert Aspiration Risk None Strength All Extremities Moderate Left Upper Extremity Sensation Intact Right Upper Extremity Sensation Intact Left Lower Extremity Sensation Intact Right Lower Extremity Sensation Intact CN V Facial Sensation Corneal reflex present, Light touch equal bilaterally CN VII Facial Expression and Symmetry Facial movement symmetrical CN IX, X Swallowing, Gag Reflex Swallowing present [place] Screen Daily History of Fall in Last 3 Months [place] No Presence of Secondary Diagnosis [place] Yes Use of Ambulatory Aid [place] None, bedrest, wheelchair, nurse IV/PRN Adapter Fall Risk [place] Yes Gait Weak or Impaired Fall Risk [place] Normal, bedrest, immobile Mental Status Fall Risk [place] Oriented to own ability [place] Fall Risk Score 35 Affect/Behavior Appropriate, Calm, Cooperative Orientation Oriented x 4 BMAT Existing Patient Condition/Safety No order for Strict Bedrest BMAT Level 1: Sit and Shake Sit, side bed/reach midline/shake hands BMAT Level 2: Stretch and Point Seated position, straighten 1 knee; Flex ankle & point toes BMAT Level 3: Stand Stand up w/o assist/Use of assist device BMAT Level 4: Walk March in place; step forward & back each foot BMAT Mobility Level 4 09/07/2022 4:15 EST WBC 6.4 10^3/mcL RBC 4.25 10^6/mcL Hgb 11.4 G/dL LOW Hct 34.7 % MCV 81.5 fL MCH 26.9 pg LOW MCHC 33.0 G/dL RDW 15.1 % Platelet 262 10^3/mcL MPV 8.0 fL Neutrophil % 50.3 % Lymphocyte % 36.9 % Monocyte % 8.9 % Eosinophil % 3.2 % Basophil % 0.7 % Neutrophil, Absolute 3.2 10^3/mcL Lymphocyte, Absolute 2.4 10^3/mcL Monocyte, Absolute 0.6 10^3/mcL Eosinophil, Absolute 0.2 10^3/mcL Basophil, Absolute 0.0 10^3/mcL Glucose Level 108 mg/dL Sodium Level 142 mEq/L Potassium Level 4.7 mEq/L Chloride 107 mEq/L CO2 32 mEq/L Electrolyte Balance 3.0 mEq/L LOW BUN 11.0 mg/dL Creatinine Lvl (s) 0.68 mg/dL BUN/Creatinine Ratio 16.2 ratio Calcium Lvl 9.5 mg/dL Magnesium Lvl 1.8 mg/dL GFR Non- >60 ml/min/1.73sqm NA GFR >60 ml/min/1.73sqm NA Creatinine Clearance Calc 75.10 mL/min 09/07/2022 4:03 EST Activity Status ADL Sleeping Standard Safety ID band on, Allergy Band on, Call device within reach, Bed in low position, Wheels locked, Upper/Half-Length side-rails up, Phone within reach, personal items within reach, Safety level maintained, Non-Slip footwear High Risk Safety Room check performed Demonstrates Correct Call Light Use Yes 09/07/2022 3:27 EST BiPAP/CPAP Mode CPAP 09/07/2022 3:00 EST Cardiac Rhythm Sinus rhythm Monitoring Lead II, V1/MCL1 OK Interval 0.19 second(s) QRS Duration 0.09 second(s) QT Interval 0.42 second(s) QTc Interval 0.46 second(s) ST Segment Measurement 0.[address] Segment Measurement -0.[address] Segment Measurement 0.[address] Segment Measurement 0 mm Alarms On and Functional Yes Heart Rate Alarm Set At - Low 40 Heart Rate Alarm Set At - High 120 Mechanical VTE Prophylaxis Education Not Done: Patient Refused (Not Done) Sequential Compression Device Form Not Done (Not Done) 09/07/2022 1:00 EST Electrocardiogram - EKG - CV Completed (In Progress) 09/07/2022 0:53 EST Heart Rate Monitored 52 bpm LOW Cardiac Rhythm Sinus bradycardia Monitoring Lead II, V1/MCL1 OK Interval 0.18 second(s) QRS Duration 0.10 second(s) QT Interval 0.44 second(s) QTc Interval 0.42 second(s) Alarms On and Functional Yes Heart Rate Alarm Set At - Low 40 Heart Rate Alarm Set At - High 120 09/07/2022 0:00 EST Able To Drink Order Detail Yes Able To Sign Consents Order Detail Yes Code Status Order Detail Full code IV Order Detail Yes Dialysis Schedule Order Detail N/A Has Diabetes Order Detail Yes Isolation Precautions Order Detail None Nurse Collect Order Detail 0 Oxygen Order Detail No Order Detail No Prior Valve Replacement Order Detail No Transport Mode Order Detail Bed Nurse and Monitor Zoology Technical Officer Details Form Zoology Technical Officer Details Form 09/06/2022 23:36 EST Heparin dose (APTT) Heparin IV APTT 57.5 seconds HI 09/06/2022 23:00 EST Oral Intake 50 mL Stool Count 0 EA Urine Voided 450 mL 09/06/2022 22:57 EST Sodium Chloride 0.9% Begin Bag 1,000 mL mL 09/06/2022 22:50 EST Temperature Oral 36.8 DegC Heart Rate Monitored 58 bpm LOW Respiratory Rate 18 br/min Systolic Blood Pressure Non-Invasive 118 mmHg Diastolic Blood Pressure Non-Invasive 52 mmHg LOW Blood Pressure Method Manual Blood Pressure Location Left arm Blood Pressure Cuff Size Medium Reason For Taking VItal Signs Routine Primary Pain Intensity 0 Primary Pain Nonverbal Response Nods No Pain Scale Type 0-10 Pain scale Cardiovascular Symptoms Edema Nail Bed Color [place] Capillary Refill < 2 seconds Heart Sounds ICU S1S2 Heart Rhythm Regular Murmur Auscultated No Dorsalis Pedis Pulse, Left 2+ Normal Dorsalis Pedis Pulse, Right 2+ Normal Posttibial Pulse, Left 1+ Thready Posttibial Pulse, Right 1+ Thready Radial Pulse, Left 2+ Normal Radial Pulse, Right 2+ Normal Respiratory Symptoms Difficulty breathing with activity Respirations Unlabored Respiratory Pattern Regular Breath Sounds Auscultated Anterior and posterior All Lobes Breath Sounds Clear, Diminished Cough and Deep Breathe Done Cough None Oxygen Therapy Room air Oxygen Saturation 95 % Tracheal Position Midline Abdomen Description Non-distended Abdomen Palpation Non-Tender Passing Flatus Yes Bowel Continence Continent Swallowing Disorder None Bowel Sounds All Quadrants Present Urinary Elimination Voiding, no difficulties Urine Color Yellow Urine Description Clear Facial Movement Symmetric resting/crying Skin Symptoms Bruising All Extremity Description [place] Skin Temperature Warm Temperature All Extremities Warm Skin Description [place], Normal for ethnicity, Dry Skin Integrity Intact Skin Turgor Elastic Mucous Membrane Color [place] Mucous Membrane Description Moist Continuous IV Infusions HBW Antecubital Right 18 gauge Peripheral IV Activity: Assessed Peripheral IV Dressing Condition: Clean, Dry, Intact Peripheral IV Dressing Activity: Transparent dressing Peripheral IV Line Status/Patency: Continuous infusion Peripheral IV Site Condition: No complications Peripheral IV Equipment: IV Pump Neurological Language Able to speak clearly Neurological Symptoms Patient denies Gait Steady Extremity Movement Equal Swallowing Difficulty None Characteristics of Communication Appropriate Characteristics of Speech Clear Facial Symmetry Symmetric Level of Consciousness Alert Aspiration Risk None Eye Opening Response [place] Spontaneously Best Motor Response [place] Obeys simple commands Best Verbal Response [place] Oriented Berta Coma Score 15 VIRI Yes Left Pupil Description Regular Right Pupil Description Regular Left Pupil Reaction Brisk Right Pupil Reaction Brisk Pupil Size, Left 3 mm Pupil Size, Right 3 mm Strength All Extremities Moderate Left Upper Extremity Sensation Intact Right Upper Extremity Sensation Intact Left Lower Extremity Sensation Intact Right Lower Extremity Sensation Intact CN V Facial Sensation Corneal reflex present CN VII Facial Expression and Symmetry Facial movement symmetrical CN VIII Hearing Spoken word equally audible left/right CN IX, X Swallowing, Gag Reflex Swallowing present Violence Risk Confused No Violence Risk Irritable No Violence Risk Boisterous No Violence Risk Verbal Threats No Violence Risk Physical Threats No Violence Risk Attacking Objects No Violence Risk Predictor Score 0 Violence Risk Intervention None Violence Risk Current Interventions None Affect/Behavior Appropriate, Calm, Cooperative Orientation Oriented x 4 Orientation Assessment Oriented x 4 Activity Status ADL Repositions self, Resting Beds/Devices Hospital bed Activity Assistance Independent Assistive Device None Standard Safety ID band on, Allergy Band on, Call device within reach, Bed in low position, Wheels locked, Upper/Half-Length side-rails up, Phone within reach, personal items within reach, Safety level maintained, Non-Slip footwear High Risk Safety Non-Slip footwear, Room check performed Demonstrates Correct Call Light Use Yes 09/06/2022 22:10 EST atorvastatin 10 mg mg 09/06/2022 22:00 EST CAM Mental Status Change & Fluctuation No CAM Inattention No CAM Disorganized Thinking No CAM Altered Level of Consciousness No Confusion Assessment Method Score Negative Individuals Taught Patient Learning Readiness Willing to learn Barriers to Learning None evident Teaching Method Explanation Teaching Evaluation Verbalizes/Nonverbally indicates understanding Identify Action of Anticoagulant Yes Identify Reason/Purpose of Anticoagulant Yes Reason/Purpose of Anticoagulant Rx or prevent blood clots Identify Side Effects of Anticoagulant Yes Identify Activities Causing Cuts/Bruises Yes Id. Problems Requiring Phy. Notification Yes Id. 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 09/06/2022 19:24 EST Heart Rate Monitored 54 bpm LOW Primary Pain Intensity 0 Primary Pain Nonverbal Response Nods No Pain Scale Type 0-10 Pain scale Cardiovascular Symptoms Edema Nail Bed Color [place] Capillary Refill < 2 seconds Heart Sounds ICU S1S2 Heart Rhythm Regular Murmur Auscultated No Dorsalis Pedis Pulse, Left 2+ Normal Dorsalis Pedis Pulse, Right 2+ Normal Posttibial Pulse, Left 1+ Thready Posttibial Pulse, Right 1+ Thready Radial Pulse, Left 2+ Normal Radial Pulse, Right 2+ Normal Cardiac Rhythm Sinus bradycardia, First degree heart block Monitoring Lead III, V1/MCL1 OK Interval 0.20 second(s) QRS Duration 0.11 second(s) QT Interval 0.46 second(s) QTc Interval 0.42 second(s) Alarms On and Functional Yes Heart Rate Alarm Set At - Low 40 Heart Rate Alarm Set At - High 120 Respiratory Symptoms Difficulty breathing with activity Respirations Unlabored Respiratory Pattern Regular Breath Sounds Auscultated Anterior and posterior All Lobes Breath Sounds Clear, Diminished Cough and Deep Breathe Done Cough None Tracheal Position Midline Abdomen Description Non-distended Abdomen Palpation Non-Tender Passing Flatus Yes Bowel Movement Last Date 09/06/2022 Bowel Continence Continent Swallowing Disorder None Bowel Sounds All Quadrants Present Urinary Elimination Voiding, no difficulties Urine Description Clear Facial Movement Symmetric resting/crying Skin Symptoms Bruising All Extremity Description [place] Skin Temperature Warm Temperature All Extremities Warm Skin Description [place], Normal for ethnicity, Dry Skin Integrity Intact Skin Turgor Elastic Mucous Membrane Color [place] Mucous Membrane Description Moist Antecubital Right 18 gauge Peripheral IV Activity: Assessed Peripheral IV Dressing Condition: Clean, Dry, Intact Peripheral IV Dressing Activity: Transparent dressing Peripheral IV Line Status/Patency: Continuous infusion Peripheral IV Site Condition: No complications Peripheral IV Equipment: IV Pump Neurological Language Able to speak clearly Neurological Symptoms Patient denies Gait Unable to assess Extremity Movement Equal Swallowing Difficulty None Characteristics of Communication Appropriate Characteristics of Speech Clear Facial Symmetry Symmetric Level of Consciousness Alert Aspiration Risk None VIRI Yes Left Pupil Description Regular Right Pupil Description Regular Left Pupil Reaction Brisk Right Pupil Reaction Brisk Pupil Size, Left 3 mm Pupil Size, Right 3 mm Strength All Extremities Moderate Left Upper Extremity Sensation Intact Right Upper Extremity Sensation Intact Left Lower Extremity Sensation Intact Right Lower Extremity Sensation Intact CN V Facial Sensation Corneal reflex present CN VII Facial Expression and Symmetry Facial movement symmetrical CN VIII Hearing Spoken word equally audible left/right CN IX, X Swallowing, Gag Reflex Swallowing present Violence Risk Confused No Violence Risk Irritable No Violence Risk Boisterous No Violence Risk Verbal Threats No Violence Risk Physical Threats No Violence Risk Attacking Objects No Violence Risk Predictor Score 0 Violence Risk Intervention None Violence Risk Current Interventions None Affect/Behavior Appropriate, Calm, Cooperative Orientation Oriented x 4 BMAT Existing Patient Condition/Safety No order for Strict Bedrest BMAT Level 1: Sit and Shake Sit, side bed/reach midline/shake hands BMAT Level 2: Stretch and Point Seated position, straighten 1 knee; Flex ankle & point toes BMAT Level 3: Stand Stand up w/o assist/Use of assist device BMAT Level 4: Walk March in place; step forward & back each foot BMAT Mobility Level 4 Orientation Assessment Oriented x 4 Activity Status ADL Awake, Repositions self Beds/Devices Hospital bed Activity Assistance Supervision Assistive Device None Standard Safety ID band on, Allergy Band on, Call device within reach, Bed in low position, Wheels locked, Phone within reach, personal items within reach, Safety level maintained, Non-Slip footwear High Risk Safety Non-Slip footwear, Room check performed Demonstrates Correct Call Light Use Yes Appetite Good Eating Difficulties None 09/06/2022 19:19 EST BiPAP/CPAP Mode CPAP BiPAP/CPAP Machine Model Patient's Home Unit Patient Tolerance BiPAP/CPAP Well 09/06/2022 18:47 EST Temperature Oral 36.8 DegC Heart Rate Monitored 66 bpm Respiratory Rate 16 br/min Systolic Blood Pressure Non-Invasive 118 mmHg Diastolic Blood Pressure Non-Invasive 66 mmHg Blood Pressure Method Manual Blood Pressure Location Left arm Blood Pressure Cuff Size Medium Reason For Taking VItal Signs Routine Oxygen Therapy Room air Oxygen Saturation 98 % Activity Status ADL Awake, Resting Beds/Devices Hospital bed Activity Assistance Supervision Assistive Device None Standard Safety ID band on, Allergy Band on, Call device within reach, Bed in low position, Wheels locked, Upper/Half-Length side-rails up, Phone within reach, personal items within reach, Bedside Cart Locked, Safety level maintained High Risk Safety Room check performed Demonstrates Correct Call Light Use Yes 09/06/2022 18:00 EST Urine Count 1 EA Urine Voided 100 mL 09/06/2022 17:35 EST Urine Color Yellow Urine Description Clear Gait Steady 09/06/2022 17:32 EST Heart Rate Monitored 57 bpm LOW Activity Status ADL Up to bathroom, Up to chair Standard Safety Safety level maintained 09/06/2022 17:31 EST Post Rehab Outcome Not Done: Task Duplication (Not Done) Mechanical VTE Prophylaxis Education Not Done: Task Duplication (Not Done) Able To Drink Order Detail Yes Able To Sign Consents Order Detail Yes Code Status Order Detail Full code IV Order Detail Yes Dialysis Schedule Order Detail N/A Has Diabetes Order Detail Yes Isolation Precautions Order Detail None Nurse Collect Order Detail 0 Oxygen Order Detail No Order Detail No Prior Valve Replacement Order Detail No Transport Mode Order Detail Bed Nurse and Monitor Cardiac Rehab - Phase I Not Done (Not Done) Zoology Technical Officer Details Form Zoology Technical Officer Details Form Sequential Compression Device Form Not Done (Not Done) 09/06/2022 17:21 EST Feeding Assistance Independent Dinner Per (more content not included)... [id number] Cardiology Progress note Date of Service 09/07/2022 Subjective Patient was seen and examined at bedside this morning. Patient denied any lightheadedness or chest pain today. Patient's current heart rate was in the 50s 60s. Patient is scheduled for pacemaker implantation today . Objective Vitals and Measurements T: 36.7 C (Oral) TMIN: 36.4 C (Oral) TMAX: 36.9 C (Oral) HR: 56(Monitored) RR: 16 BP: 126/64 SpO2:96% Intake and Output 7AM Yesterday to 7AM Today Intake and Output (Last 24 hours) Intake Administration Information 400.00 Oral Intake 475.00 Output Urine Voided 2024. Stool Count 0.00 Urine Count 1.00 Total Summary Total Intake 875.00 Total Output 2024. Fluid Balance -1150.00 Physical Exam General Appearance: Patient comfortably lying on bed, in no acute distress Head: Normocephalic, atraumatic EENT: PERRLA, Neck: Supple, no JVD, Cardiac: s1s2,RRR, no murmurs or rubs or gallops Lungs: Clear to auscultation bilaterally, no wheeze or rhonchi or crackles Abdomen: Soft , Nontender, no organomegaly, bowel sounds heard Musculoskeletal: Full ROM , no gross deformities Extremities: No rash or ulcers or pedal edema present bilateral lower extremities Weight Dosing Weight: 125 kg (09/05/22) Medications Medications (8) Active Scheduled: (4) atorvastatin 10 mg tablet 10 mg 1 tab(s), Oral, qDay cefuroxime 750 mg, IV Piggyback, Once insulin lispro 100 units/mL Soln (3 mL) Give 0-10 units/dose, Subcutaneous, TIDAC sertraline 50 mg tablet 50 mg 1 tab(s), Oral, qDay Continuous: (3) DOPamine 400 mg/250 mL (premixed bag) 400 mg [5 mcg/kg/min] + Dextrose 5% Premix Diluent 250 mL 250mL, Intravenous, 23.44 mL/hr NS (0.9% nacl) 1,000 mL 1,000 mL, Intravenous, 50 mL/hr NS (0.9% nacl) 1,000 mL 1,000 mL, Intravenous, 20 mL/hr PRN: (1) melatonin 3 mg tablet 3 mg 1 tab(s), Oral, qHS Lab Results 09/07 04:15 WBC: 6.4 Hgb: 11.4 L Hct: 34.7 Platelet: 262 Neutrophil %: 50.3 Glucose Level: 108 Sodium Level: 142 Potassium Level: 4.7 BUN: 11.0 Creatinine Lvl (s): 0.68 09/06 10:18 Protime: 12.9 PT International Ratio: 1.1 09/06 05:02 WBC: 8.8 Hgb: 11.7 L Hct: 35.7 Platelet: 265 Neutrophil %: 58.6 Glucose Level: 99 Sodium Level: 144 Potassium Level: 4.3 BUN: 16.0 Creatinine Lvl (s): 0.70 09/06 02:15 WBC: 9.3 Hgb: 12.6 Hct: 38.0 Platelet: 281 Neutrophil %: 66.8 Glucose Level: 143 H Sodium Level: 138 Potassium Level: 4.3 BUN: 13.0 Creatinine Lvl (s): 0.65 EKG EKG - Completed -- 09/06/22 0:48:00 EST Electrocardiogram (EKG) - InProcess -- 09/06/22 16:03:00 EST, CP 2 Electrocardiogram (EKG) - InProcess -- 09/07/22 0:50:00 EST Assessment/Plan Symptomatic bradycardia Hypomagnesemia resolved Elevated HCO3 likely due to Chronic respiratory acidosis due to YOHAN History of paroxysmal atrial fibrillation (CHAD2 VASc2 score - 3, HAS BLED - 2) Morbid Obesity (BMI 45) YOHAN on CPAP Diabetes mellitus Depression DVT prophylaxis Full CODE STATUS Etiology of symptomatic bradycardia could be multifactorial, medication side effect, possible underlying cardiomyopathy and electrolyte imbalance. At [place], patient was in junctional rhythm with arate around 45/min. Patient initially started on dopamine however and chest pressure and blood pressure elevation to 170s therefore it was discontinued. Patient is currently denying any lightheadedness or shortness of breath. Currently, patient is in sinus rhythm, rate 55-60/min. Hypomagnesemia is resolved Continue to hold metoprolol and flecainide. Troponin was 3.46, proBNP was 153. Lipid profile was within normal limits showing cholesterol 130, triglycerides 91, HDL 59, LDL 53,TSH 2.84, A1c 5.8 Echocardiogram done on 09/06/2022 showed EF 55 to 60%, grade 1 diastolic dysfunction present. Electrophysiology consulted yesterday, patient scheduled for permanent pacemaker placement today. We will continue to monitor telemetry. History of paroxysmal atrial fibrillation, continue Xarelto for anticoagulation. We will continue to hold of metoprolol and flecainide. Patient is currently on heparin by weight Continue home setting of CPAP. Resume home dose sertraline for depression. DVT prophylaxis -heparin by weight Patient is full CODE Digitally Signed by ABHISHEK ANNE MD on 09/07/2022 10:21 AM [facility] [id number] Cardiology Consult note Date of Service September 06, 2022 Shared/Split visit with Dr. Morfin Reason for Consultation Bradycardia Referring Physician General cardiology History of Present Illness This is a 66-year-old female with a history of paroxysmal atrial fibrillation with a [id number] of 3 status post ablation at [facility] in 2018. EP has been consulted for further evaluation of bradycardia. At this time we recommend discontinuation of flecainide and sertraline to continue to monitor overall heart rate for the next 24 to 48 hours. Continue to monitor QTc. Past medical history significant for 1. Sick sinus syndrome 2. Diastolic hypotension 3. Syncope (combination of bradycardia and diastolic hypotension) 4. QT prolongation (490 ms) while on flecainide and sertraline 5. Paroxysmal AF with a [id number] of 3 status post AF ablation 2017, direct- current cardioversion 2021 6. Obstructive sleep apnea on CPAP 7. Diabetes 8. Morbid obesity 9. Comorbidities also include depression and hypocoagulable state while on Xarelto. Echocardiogram completed but not read. EKG demonstrating sinus bradycardia at a heart rate of 50 bpm. EKG on arrival demonstrated junctional bradycardia at a heart rate of 38 bpm. Similar to an EKG completed at [facility] on August 05, 2022 demonstrating junctional bradycardiaat a heart rate of 40 bpm Today, the patient is sitting comfortably in bed no acute distress. She is currently eating her dinner. We did answer all questions regarding possible pacemaker to happen tomorrow. Patient is understanding agreeable to move forward with procedure. This will allow us to then adequately rate controlled the patient for A-fib. To avoid tachybradycardia syndrome. On interview the patient notes tiredness, fatigue but denies any chest pain, lightheadedness dizziness or syncopal episodes. Review of Systems Pertinent positives per HPI all other systems reviewed and negative. Physical Exam Vitals and Measurements T: 36.4 C (Oral) TMIN: 36.4 C (Oral) TMAX: 36.9 C (Oral) HR: 52(Monitored) RR: 18 BP: 108/62 SpO2: 94% HT: 167.6 cm WT: 125.0 kg BMI: 44.5 Weight Dosing Weight: 125 kg (09/05/22) General - 66 yr old female appearing stated age HEENT - head normocephalic, atraumatic. Pupils equal reactive to light. Nose patent bilaterally. Oropharynx without erythema or exudate. Neck -supple, full range of motion. No carotid bruits noted. Cardiovascular - Regular rate and rhythm. No significant murmurs appreciated. Lungs - clear to auscultation bilaterally. Abdomen - soft, nontender. Bowel sounds present in all 4 quadrants. Musculoskeletal -full weightbearing. Full range of motion in all extremities. Skin -intact, no lesions or rashes noted. Neurological - cranial nerves grossly intact. Mood and affect appropriate to situation. Peripheral vascular - No pitting edema Lab Results 09/06 10:18 Protime: 12.9 PT International Ratio: 1.1 09/06 05:02 WBC: 8.8 Hgb: 11.7 L Hct: 35.7 Platelet: 265 Neutrophil %: 58.6 Glucose Level: 99 Sodium Level: 144 Potassium Level: 4.3 BUN: 16.0 Creatinine Lvl (s): 0.70 09/06 02:15 WBC: 9.3 Hgb: 12.6 Hct: 38.0 Platelet: 281 Neutrophil %: 66.8 Glucose Level: 143 H Sodium Level: 138 Potassium Level: 4.3 BUN: 13.0 Creatinine Lvl (s): 0.65 Assessment/Plan 1. Sick sinus syndrome Patient still remains mildly bradycardic despite washing out current medical therapies. To avoid tachybradycardia syndrome move forward with permanent pacemaker 2. Diastolic hypotension Continue on IV gentle hydration 3. Syncope (combination of bradycardia and diastolic hypotension) Continue to monitor overall blood pressure 4. QT prolongation (490 ms) while on flecainide and sertraline Continue washout. Continue to monitor telemetry and EKGs. Do not recommend stronger antiarrhythmic at this time. 5. Paroxysmal AF with a [id number] of 3 status post AF ablation 2017, direct- current cardioversion 2021 Noted. Continue to monitor. Status post pacemaker we will move forward with antiarrhythmic support if necessary. Problem List/Past Medical History Ongoing No qualifying data Historical No qualifying data Procedure/Surgical History Ablation Cardioversion Medications Inpatient atorvastatin, 10 mg= 1 tab(s), Oral, qDay Cefuroxime Inj (Zinacef) DOPamine for IV 400 mg [5 mcg/kg/min] + Dextrose Premix titrate [place] [address] unit(s) [8 unit(s)/kg/hr] + Dextrose 5% Premix Diluent 250 mL Heparin HBW CARDIAC Bolus 5000 units/mL, 4000 unit(s)= 0.8 mL, 60 unit(s)/kg, IV Push, q6h, PRN HumaLOG 100 units/mL subcutaneous solution, Give 0-10 units/dose, Subcutaneous, TIDAC melatonin, 3 mg= 1 tab(s), Oral, qHS, PRN NS 1,000 mL, 1000 mL, Intravenous NS 1,000 mL, 1000 mL, Intravenous sertraline, 50 mg= 1 tab(s), Oral, qDay Home atorvastatin 10 mg oral tablet, 10 mg= 1 tab(s), Oral, qDay Calcium 600+D oral tablet, 1 tab(s), Oral, qDay flecainide 100 mg oral tablet, 100 mg= 1 tab(s), Oral, q12h metFORMIN 1000 mg oral tablet (IR), 1000 mg= 1 tab(s), Oral, BID metoprolol tartrate 50 mg oral tablet, 50 mg= 1 tab(s), Oral, BID Multivitamin, 1 tab(s), Oral, Daily sertraline 50 mg oral tablet, 50 mg= 1 tab(s), Oral, qDay Vitamin C 25 mg oral tablet, chewable, 25 mg= 1 tab(s), Chewed, qDay Vitamin D3, 25 mcg= 1 tab(s), Oral, q12h Xarelto, 20 mg, Oral, qPM Allergies Neosporin bacitracin (Cephalexin, Polymyxins) cephalexin neomycin Social History Alcohol Use: Current. Frequency: 1-2 times per year., 09/05/2022 Immunizations No qualifying data available. Digitally Signed by QUINCY SWEET on 09/06/2022 05:12 PM [facility] [id number] Note EP BRIEF NOTERe: bradycardia. PCP: Rian Romero CV: Radha / Donal Patient: Guadalupe Davis medical record# [id number] IMPRESSION: 1. Sick Sinus Syndrome, micha 38 bpm by ECG. Contributing factors. YOHAN, obesity lung syndrome with respiratory acidosis, metoprolol, flecainide. 2. Diastolic hypotension. 3. Syncope. Suspect due to combination of bradycardia and diastolic hypotension. 4. QT prolongation (490ms) on Flecainide/sertraline. 5. Paroxysmal Atrial Fibrillation, CHADSVASC= 3, hx AF ablation [2017 [place]] and [facility] [04/2022]. 6. Obstructive sleep apnea on cpap. 7. Diabetes. 8. Depression. 9. Morbid Obesity (bmi 44.5). 10. Hypocoagulable state (xarelto). RECOMMENDATIONS: 1. Agree with discontinuation of flecainide and metoprolol. Heart rate should improve over 24-48 hours. Will take several days for QT to shorten. 2. Do not know if alternative antiarrhythmic agent possible given her QT prolongation and apparent need for antidepressant medication. 3. Need to consider pacemaker to allow needed rate control meds. Thanks. Rhett Morfin MD, [facility], [facility] pager [phone] Digitally Signed by RHETT MORFIN MD on 09/06/2022 11:39 AM [facility] [id number] Anesthesiology Consult note* TAMIKO SHAFFER MD: PERFORM, SIGN, VERIFY Event Display: Anesthesiology Consultation Authored Date: Patient: GUADALUPE DAVIS Age: 66 years Sex: Female : 1955 Associated Diagnoses: None Author: TAMIKO SHAFFER MD Preoperative Information Time of last food or liquid consumption: 09/07/2022 00:00:00 Anesthesia history Patient's history: negative. Family's history: negative. History of Present Illness The patient presents for preanesthesia evaluation with Patient is a 66-year-old female who presentsfor elective pacemaker placement to address symptomatic bradycardia. States she is active with somelimitations, denies ischemic symptoms, cardiopulmonary limitations, prior history of CAD or cardiac interventions. She does have a history of bradycardia as mentioned, hypertension, hypercholesterolemia, diabetes, and obstructive sleep apnea. She denies prior anesthetic issues, has no symptoms of reflux on the day of surgery, her preoperative blood glucose 102 mg/dL. I reviewed her chart, studies, labs, consultations and she appears optimized proceed with deep sedation, possible general anesthesia for planned procedure.. Health Status Allergies: Allergic Reactions (Selected) Severity Not Documented Bacitracin- Polymyxins and cephalexin. Cephalexin- No reactions were documented. Neomycin- No reactions were documented. Neosporin- No reactions were documented., Allergies (4) ActiveReaction bacitracinCephalexin cephalexinNone Documented neomycinNone Documented NeosporinNone Documented Current medications: (Selected) Inpatient Medications Ordered DOPamine for IV 400 mg [5 mcg/kg/min] + Dextrose Premix titrate 250 mL: 23.44 mL/hr, Intravenous HumaLOG 100 units/mL subcutaneous solution: Give 0-10 units/dose, Subcutaneous, TIDAC NS 1,000 mL: 20 mL/hr, Intravenous NS 1,000 mL: 50 mL/hr, Intravenous atorvastatin: 10 mg, 1 tab(s), Oral, qDay melatonin: 3 mg, 1 tab(s), Oral, qHS, PRN: Sleep sertraline: 50 mg, 1 tab(s), Oral, qDay Documented Medications Documented Calcium 600+D oral tablet: 1 tab(s), Oral, qDay, 0 Refill(s) Multivitamin: 1 tab(s), Oral, Daily Vitamin C 25 mg oral tablet, chewable: 25 mg, 1 tab(s), Chewed, qDay, 30 tab(s), 0 Refill(s) Vitamin D3: 25 mcg, 1 tab(s), Oral, q12h, 0 Refill(s) Xarelto: 20 mg, Oral, qPM atorvastatin 10 mg oral tablet: 10 mg, 1 tab(s), Oral, qDay, 30 tab(s), 0 Refill(s) flecainide 100 mg oral tablet: 100 mg, 1 tab(s), Oral, q12h, 60 tab(s), 0 Refill(s) metFORMIN 1000 mg oral tablet (IR): 1,000 mg, 1 tab(s), Oral, BID, 60 tab(s), 0 Refill(s) metoprolol tartrate 50 mg oral tablet: 50 mg, 1 tab(s), Oral, BID, 60 tab(s), 0 Refill(s) sertraline 50 mg oral tablet: 50 mg, 1 tab(s), Oral, qDay, 30 tab(s), 0 Refill(s), Medications (7) Active Scheduled: (3) atorvastatin 10 mg tablet 10 mg 1 tab(s), Oral, qDay insulin lispro 100 units/mL Soln (3 mL) Give 0-10 units/dose, Subcutaneous, TIDAC sertraline 50 mg tablet 50 mg 1 tab(s), Oral, qDay Continuous: (3) DOPamine 400 mg/250 mL (premixed bag) 400 mg [5 mcg/kg/min] + Dextrose 5% Premix Diluent 250 mL 250mL, Intravenous, 23.44 mL/hr NS (0.9% nacl) 1,000 mL 1,000 mL, Intravenous, 50 mL/hr NS (0.9% nacl) 1,000 mL 1,000 mL, Intravenous, 20 mL/hr PRN: (1) melatonin 3 mg tablet 3 mg 1 tab(s), Oral, qHS Problem list: Active Problems (5) Atrial fibrillation and flutter Bradycardia Diabetes mellitus Neuropathy Sleep apnea Histories Past Medical History: No active or resolved past medical history items have been selected or recorded. Family History: No family history items have been selected or recorded. Procedure history: Ablation ([id number]). Cardioversion ([id number]). Social History Social & Psychosocial Habits Alcohol 09/05/2022 Use: Current Frequency: 1-2 times per year . Physical Examination Vital Signs 09/07/2022 12:55 EST Temperature (Route Not Specified) 35.3 DegC DegC Heart Rate Monitored 61 bpm bpm Respiratory Rate - Anes 19 br/min br/min 09/07/2022 12:52 EST Systolic Blood Pressure Non-Invasive 109 mmHg mmHg Diastolic Blood Pressure Non-Invasive 55 mmHg mmHg 09/07/2022 12:50 EST Temperature (Route Not Specified) 35.05 DegC DegC Heart Rate Monitored 64 bpm bpm Respiratory Rate - Anes 18 br/min br/min 09/07/2022 12:49 EST Systolic Blood Pressure Non-Invasive 113 mmHg mmHg Diastolic Blood Pressure Non-Invasive 54 mmHg mmHg 09/07/2022 12:46 EST Systolic Blood Pressure Non-Invasive 120 mmHg mmHg Diastolic Blood Pressure Non-Invasive 57 mmHg mmHg 09/07/2022 12:45 EST Temperature (Route Not Specified) 34.71 DegC DegC Heart Rate Monitored 64 bpm bpm Respiratory Rate - Anes 20 br/min br/min 09/07/2022 12:43 EST Systolic Blood Pressure Non-Invasive 126 mmHg mmHg Diastolic Blood Pressure Non-Invasive 62 mmHg mmHg 09/07/2022 12:40 EST Temperature (Route Not Specified) 34.36 DegC DegC Heart Rate Monitored 71 bpm bpm Respiratory Rate - Anes 18 br/min br/min Systolic Blood Pressure Non-Invasive 137 mmHg mmHg Diastolic Blood Pressure Non-Invasive 58 mmHg mmHg 09/07/2022 12:37 EST Systolic Blood Pressure Non-Invasive 145 mmHg mmHg Diastolic Blood Pressure Non-Invasive 59 mmHg mmHg 09/07/2022 12:35 EST Temperature (Route Not Specified) 33.72 DegC DegC Heart Rate Monitored 72 bpm bpm Respiratory Rate - Anes 19 br/min br/min 09/07/2022 12:34 EST Systolic Blood Pressure Non-Invasive 144 mmHg mmHg Diastolic Blood Pressure Non-Invasive 72 mmHg mmHg 09/07/2022 12:31 EST Systolic Blood Pressure Non-Invasive 133 mmHg mmHg Diastolic Blood Pressure Non-Invasive 63 mmHg mmHg 09/07/2022 12:30 EST Heart Rate Monitored 73 bpm bpm Respiratory Rate - Anes 15 br/min br/min 09/07/2022 12:28 EST Systolic Blood Pressure Non-Invasive 139 mmHg mmHg Diastolic Blood Pressure Non-Invasive 65 mmHg mmHg 09/07/2022 11:33 EST Temperature Oral 36.7 DegC Heart Rate Monitored 62 bpm Respiratory Rate 18 br/min Systolic Blood Pressure Non-Invasive 110 mmHg Diastolic Blood Pressure Non-Invasive 62 mmHg Reason For Taking VItal Signs Routine 09/07/2022 11:05 EST Heart Rate Monitored 56 bpm LOW 09/07/2022 7:30 EST Heart Rate Monitored 56 bpm LOW 09/07/2022 6:42 EST Temperature Oral 36.7 DegC Heart Rate Monitored 61 bpm Respiratory Rate 16 br/min Systolic Blood Pressure Non-Invasive 126 mmHg Diastolic Blood Pressure Non-Invasive 64 mmHg 09/07/2022 4:19 EST Temperature Oral 36.9 DegC Heart Rate Monitored 56 bpm LOW Respiratory Rate 16 br/min Systolic Blood Pressure Non-Invasive 110 mmHg Diastolic Blood Pressure Non-Invasive 60 mmHg Reason For Taking VItal Signs Routine 09/07/2022 0:53 EST Heart Rate Monitored 52 bpm LOW 09/06/2022 22:50 EST Temperature Oral 36.8 DegC Heart Rate Monitored 58 bpm LOW Respiratory Rate 18 br/min Systolic Blood Pressure Non-Invasive 118 mmHg Diastolic Blood Pressure Non-Invasive 52 mmHg LOW Blood Pressure Method Manual Blood Pressure Location Left arm Blood Pressure Cuff Size Medium Reason For Taking VItal Signs Routine 09/06/2022 19:24 EST Heart Rate Monitored 54 bpm LOW 09/06/2022 18:47 EST Temperature Oral 36.8 DegC Heart Rate Monitored 66 bpm Respiratory Rate 16 br/min Systolic Blood Pressure Non-Invasive 118 mmHg Diastolic Blood Pressure Non-Invasive 66 mmHg Blood Pressure Method Manual Blood Pressure Location Left arm Blood Pressure Cuff Size Medium Reason For Taking VItal Signs Routine 09/06/2022 17:32 EST Heart Rate Monitored 57 bpm LOW 09/06/2022 16:00 EST Heart Rate Monitored 53 bpm LOW Reason For Taking VItal Signs Routine 09/06/2022 15:59 EST Heart Rate Monitored 53 bpm LOW Reason For Taking VItal Signs Routine 09/06/2022 14:30 EST Temperature Oral 36.4 DegC Heart Rate Monitored 52 bpm LOW Respiratory Rate 18 br/min Systolic Blood Pressure Non-Invasive 108 mmHg Diastolic Blood Pressure Non-Invasive 62 mmHg Blood Pressure Method Manual Blood Pressure Location Left arm Blood Pressure Cuff Size Medium Reason For Taking VItal Signs Routine 09/06/2022 11:45 EST Temperature Oral 36.5 DegC Heart Rate Monitored 50 bpm LOW Respiratory Rate 18 br/min Systolic Blood Pressure Non-Invasive 110 mmHg Diastolic Blood Pressure Non-Invasive 60 mmHg 09/06/2022 11:14 EST Heart Rate Monitored 48 bpm LOW 09/06/2022 7:19 EST Temperature Oral 36.5 DegC Heart Rate Monitored 51 bpm LOW Respiratory Rate 18 br/min Systolic Blood Pressure Non-Invasive 134 mmHg Diastolic Blood Pressure Non-Invasive 55 mmHg LOW 09/06/2022 6:46 EST Heart Rate Monitored 54 bpm LOW 09/06/2022 4:06 EST Temperature Oral 36.5 DegC Heart Rate Monitored 53 bpm LOW Respiratory Rate 18 br/min Systolic Blood Pressure Non-Invasive 110 mmHg Diastolic Blood Pressure Non-Invasive 62 mmHg Blood Pressure Method Manual Blood Pressure Location Left arm Blood Pressure Cuff Size Medium Reason For Taking VItal Signs Routine Vital Signs(last 24 hrs) Last Charted Temp Oral36.7 DegC (SEP 07 11:33) Heart Rate [id number] bpm (SEP 07 12:55) Resp Rate 18 br/min (SEP 07 11:33) [id number] mmHg (SEP 07 12:52) DBP55 mmHg (SEP 07 12:52) Pain assessment: Pain Assessment 09/07/2022 11:05 EST Primary Pain Intensity 0 Primary Pain Nonverbal Response Nods No Pain Scale Type 0-10 Pain scale 09/07/2022 7:30 EST Primary Pain Intensity 0 Primary Pain Nonverbal Response Nods No Pain Scale Type 0-10 Pain scale 09/07/2022 4:19 EST Primary Pain Intensity 0 Primary Pain Nonverbal Response Nods No Pain Scale Type 0-10 Pain scale 09/06/2022 22:50 EST Primary Pain Intensity 0 Primary Pain Nonverbal Response Nods No Pain Scale Type 0-10 Pain scale 09/06/2022 19:24 EST Primary Pain Intensity 0 Primary Pain Nonverbal Response Nods No Pain Scale Type 0-10 Pain scale 09/06/2022 17:19 EST Primary Pain Intensity 0 Primary Pain Nonverbal Response Appears restful Pain Scale Type 0-10 Pain scale 09/06/2022 16:00 EST Primary Pain Location Chest Primary Pain Intensity 2 Primary Pain Nonverbal Response Nods Yes Pain Scale Type 0-10 Pain scale 09/06/2022 15:59 EST Primary Pain Location Chest Primary Pain Intensity 2 Primary Pain Nonverbal Response Nods Yes Pain Scale Type 0-10 Pain scale 09/06/2022 11:14 EST Primary Pain Intensity 0 Pain Scale Type 0-10 Pain scale 09/06/2022 6:46 EST Primary Pain Intensity 0 Pain Scale Type 0-10 Pain scale 09/06/2022 5:55 EST Primary Pain Location Chest Primary Pain Laterality Bilateral Primary Pain Intensity 3 Primary Pain Quality Aching, Pressure Pain Scale Type 0-10 Pain scale 09/06/2022 4:06 EST Primary Pain Intensity 0 Pain Scale Type 0-10 Pain scale . General: Alert and oriented, No acute distress. Airway: Normal mouth. Mallampati classification: II (soft palate, fauces, uvula visible). Head: Normocephalic, Atraumatic. Dentition Evaluation: Missing teeth, Dentures, upper. Neck: Supple, Non-tender. Respiratory: Lungs are clear to auscultation, Respirations are non-labored. Cardiovascular: Normal rate, Regular rhythm. Heart Sounds: Normal. Neurologic: Alert, Oriented. Review / Management Results review: Labs (Last four charted values) WBC 6.4(SEP 07)8.8(SEP 06)9.3(SEP 06) Hgb L 11.4(SEP 07)L 11.7(SEP 06)12.6(SEP 06) Hct 34.7(SEP 07)35.7(SEP 06)38.0(SEP 06) Plt 262(SEP 07)265(SEP 06)281(SEP 06) Na 142(SEP 07)144(SEP 06)138(SEP 06) K 4.7(SEP 07)4.3(SEP 06)4.3(SEP 06) CO2 32(SEP 07)31(SEP 06)29(SEP 06) Cl 107(SEP 07)107(SEP 06)105(SEP 06) Cr 0.68(SEP 07)0.70(SEP 06)0.65(SEP 06) BUN 11.0(SEP 07)16.0(SEP 06)13.0(SEP 06) Glucose 108(SEP 07)99(SEP 06)H 143(SEP 06) Mg 1.8(SEP 07)2.2(SEP 06)1.6(SEP 06) Phos 3.4(SEP 06) Ca 9.5(SEP 07)9.4(SEP 06)9.8(SEP 06) PT 12.9(SEP 06) INR 1.1(SEP 06) PTT H 57.5(SEP 06)34.3(SEP 06)30.9(SEP 06) , Lab results 09/07/2022 12:55 EST Temperature (Route Not Specified) 35.3 DegC DegC Heart Rate Monitored 61 bpm bpm Respiratory Rate - Anes 19 br/min br/min Oxygen Saturation 100 % % 09/07/2022 12:52 EST Systolic Blood Pressure Non-Invasive 109 mmHg mmHg Diastolic Blood Pressure Non-Invasive 55 mmHg mmHg 09/07/2022 12:50 EST Temperature (Route Not Specified) 35.05 DegC DegC Heart Rate Monitored 64 bpm bpm Respiratory Rate - Anes 18 br/min br/min Oxygen Saturation 100 % % 09/07/2022 12:49 EST Systolic Blood Pressure Non-Invasive 113 mmHg mmHg Diastolic Blood Pressure Non-Invasive 54 mmHg mmHg 09/07/2022 12:46 EST Systolic Blood Pressure Non-Invasive 120 mmHg mmHg Diastolic Blood Pressure Non-Invasive 57 mmHg mmHg 09/07/2022 12:45 EST Temperature (Route Not Specified) 34.71 DegC DegC Heart Rate Monitored 64 bpm bpm Respiratory Rate - Anes 20 br/min br/min Oxygen Saturation 100 % % 09/07/2022 12:43 EST Systolic Blood Pressure Non-Invasive 126 mmHg mmHg Diastolic Blood Pressure Non-Invasive 62 mmHg mmHg 09/07/2022 12:40 EST Temperature (Route Not Specified) 34.36 DegC DegC Heart Rate Monitored 71 bpm bpm Respiratory Rate - Anes 18 br/min br/min Systolic Blood Pressure Non-Invasive 137 mmHg mmHg Diastolic Blood Pressure Non-Invasive 58 mmHg mmHg Oxygen Saturation 99 % % 09/07/2022 12:37 EST Systolic Blood Pressure Non-Invasive 145 mmHg mmHg Diastolic Blood Pressure Non-Invasive 59 mmHg mmHg 09/07/2022 12:36 EST Permanent Pacemaker - CV In Process (In Progress) 09/07/2022 12:35 EST Temperature (Route Not Specified) 33.72 DegC DegC Heart Rate Monitored 72 bpm bpm Respiratory Rate - Anes 19 br/min br/min Oxygen Saturation 99 % % 09/07/2022 12:34 EST Systolic Blood Pressure Non-Invasive 144 mmHg mmHg Diastolic Blood Pressure Non-Invasive 72 mmHg mmHg 09/07/2022 12:32 EST ketamine 30 mg mg 09/07/2022 12:31 EST Systolic Blood Pressure Non-Invasive 133 mmHg mmHg Diastolic Blood Pressure Non-Invasive 63 mmHg mmHg 09/07/2022 12:30 EST Heart Rate Monitored 73 bpm bpm Respiratory Rate - Anes 15 br/min br/min Oxygen Saturation 99 % % 09/07/2022 12:29 EST Out of Room Remains in Current Location Heart Transportation Superintendent 09/07/2022 12:28 EST Systolic Blood Pressure Non-Invasive 139 mmHg mmHg Diastolic Blood Pressure Non-Invasive 65 mmHg mmHg 09/07/2022 12:22 EST SN - CTm - Anesthesia Start Time Anesthesia Start 09/07/2022 12:22 EST midazolam 2 mg mg 09/07/2022 12:15 EST cefuroxime 750 mg mg Dextrose 5% in Water 50 mL mL 09/07/2022 12:00 EST Accompanied By Staff Monitor, ANIMAL SCIENTIST/DESIGN ENGINEERING TECHNICIAN/PCT, Transporter Out of Room Went to Current Location Heart Transportation Superintendent Transport via Bed insulin lispro Not Done: Below Sliding Scale (Not Done) 09/07/2022 11:41 EST Discharge To, Anticipated Home independently Transition Planning Note Transition Planning Ongoing Assessment 09/07/2022 11:33 EST Blood Glucose, Capillary 102 mg/dL Blood Glucose Testing Reason Routine Temperature Oral 36.7 DegC Heart Rate Monitored 62 bpm Respiratory Rate 18 br/min Systolic Blood Pressure Non-Invasive 110 mmHg Diastolic Blood Pressure Non-Invasive 62 mmHg Reason For Taking VItal Signs Routine Oxygen Saturation 95 % Activity Status ADL Awake, Resting Standard Safety ID band on, Allergy Band on, Call device within reach, Bed in low position, Wheels locked, Upper/Half-Length side-rails up, Phone within reach, personal items within reach, Safety level maintained, Non-Slip footwear, Precautions maintained High Risk Safety Room check performed Demonstrates Correct Call Light Use Yes 09/07/2022 11:05 EST Heart Rate Monitored 56 bpm LOW Primary Pain Intensity 0 Primary Pain Nonverbal Response Nods No Pain Scale Type 0-10 Pain scale Monitor Alarms On and Limits Checked Cardiovascular Symptoms Edema Nail Bed Color [place] Capillary Refill < 2 seconds Heart Sounds ICU S1S2 Heart Rhythm Regular Dorsalis Pedis Pulse, Left 2+ Normal Dorsalis Pedis Pulse, Right 2+ Normal Posttibial Pulse, Left 1+ Thready Posttibial Pulse, Right 1+ Thready Leg edema Bilateral Edema Ratin+ trace/2mm Cardiac Rhythm Sinus bradycardia Monitoring Lead III, V1/MCL1 OK Interval 0.19 second(s) QRS Duration 0.09 second(s) QT Interval 0.43 second(s) QTc Interval 0.43 second(s) ST Segment Measurement 0.[address] Segment Measurement [address] Segment Measurement 0.[address] Segment Measurement 0.1 mm Alarms On and Functional Yes Heart Rate Alarm Set At - Low 50 Heart Rate Alarm Set At - High 120 Respirations Unlabored Respiratory Pattern Regular Breath Sounds Auscultated Anterior and posterior All Lobes Breath Sounds Clear, Diminished Cough None Tracheal Position Midline Facial Movement Symmetric resting/crying Skin Symptoms Bruising All Extremity Description Normal for ethnicity Skin Temperature Warm Temperature All Extremities Warm Skin Description [place], Normal for ethnicity, Dry Skin Integrity Intact Skin Turgor Elastic Mucous Membrane Color [place] Mucous Membrane Description Moist Antecubital Right 18 gauge Peripheral IV Activity: Assessed Peripheral IV Dressing Condition: Clean, Dry, Intact Peripheral IV Dressing Activity: Transparent dressing Peripheral IV Line Status/Patency: Continuous infusion Peripheral IV Site Condition: No complications Peripheral IV Equipment: IV Pump Neurological Language Able to speak clearly, Follows simple commands Neurological Symptoms Patient denies Gait Steady Extremity Movement Equal Swallowing Difficulty None Characteristics of Communication Appropriate Characteristics of Speech Clear Facial Symmetry Symmetric Level of Consciousness Alert Aspiration Risk None Strength All Extremities Moderate Left Upper Extremity Sensation Intact Right Upper Extremity Sensation Intact Left Lower Extremity Sensation Intact Right Lower Extremity Sensation Intact CN V Facial Sensation Corneal reflex present, Light touch equal bilaterally CN VII Facial Expression and Symmetry Facial movement symmetrical CN IX, X Swallowing, Gag Reflex Swallowing present Affect/Behavior Appropriate, Calm, Cooperative Orientation Oriented x 4 09/07/2022 10:17 EST Cardiology Progress Note Progress Note 09/07/2022 10:04 EST Activity Status ADL Resting Standard Safety ID band on, Allergy Band on, Call device within reach, Bed in low position, Wheels locked, Upper/Half-Length side-rails up, Phone within reach, personal items within reach, Safety level maintained, Non-Slip footwear High Risk Safety Room check performed Demonstrates Correct Call Light Use Yes 09/07/2022 9:10 EST Mechanical VTE Prophylaxis Education Not Done: Not Appropriate at this Time (Not Done) Sequential Compression Device Form Not Done (Not Done) 09/07/2022 9:09 EST CAM Mental Status Change & Fluctuation No CAM Inattention No CAM Disorganized Thinking No CAM Altered Level of Consciousness No Confusion Assessment Method Score Negative 09/07/2022 8:52 EST Post Rehab Outcome Continue same step Cardiac Rehab - Phase I Cardiac Rehab - Phase I 09/07/2022 8:44 EST magnesium sulfate 2 gram(s) gram(s) 09/07/2022 8:29 EST Bed Bath Independent Hair Care Independent Oral Care Independent Skin Care Done Skin Care Product Applied CHG bath Ania Care Independent Linen Change Done 09/07/2022 8:06 EST Activity Status ADL Awake Standard Safety ID band on, Allergy Band on, Call device within reach, Bed in low position, Wheels locked, Upper/Half-Length side-rails up, Phone within reach, personal items within reach, Safety level maintained, Non-Slip footwear High Risk Safety Room check performed Demonstrates Correct Call Light Use Yes 09/07/2022 8:00 EST insulin lispro Not Done: Below Sliding Scale (Not Done) 09/07/2022 7:32 EST sertraline 50 mg mg 09/07/2022 7:30 EST Heart Rate Monitored 56 bpm LOW Primary Pain Intensity 0 Primary Pain Nonverbal Response Nods No Pain Scale Type 0-10 Pain scale Monitor Alarms On and Limits Checked Cardiovascular Symptoms Edema Nail Bed Color [place] Capillary Refill < 2 seconds Heart Sounds ICU S1S2 Heart Rhythm Regular Dorsalis Pedis Pulse, Left 2+ Normal Dorsalis Pedis Pulse, Right 2+ Normal Posttibial Pulse, Left 1+ Thready Posttibial Pulse, Right 1+ [place] Radial Pulse, Left 2+ Normal Radial Pulse, Right 2+ Normal Leg edema Bilateral Edema Ratin+ trace/2mm Respiratory Symptoms Difficulty breathing with activity Respirations Unlabored Respiratory Pattern Regular Breath Sounds Auscultated Anterior and posterior All Lobes Breath Sounds Clear, Diminished Cough None Tracheal Position Midline Abdomen Description Non-distended Abdomen Palpation Non-Tender Bowel Sounds All Quadrants Present Urinary Elimination Voiding, no difficulties Facial Movement Symmetric resting/crying Skin Symptoms Bruising All Extremity Description Normal for ethnicity Skin Temperature Warm Temperature All Extremities Warm Skin Description [place], Normal for ethnicity, Dry Skin Integrity Intact Skin Turgor Elastic Mucous Membrane Color [place] Mucous Membrane Description Moist Antecubital Right 18 gauge Peripheral IV Activity: Assessed Peripheral IV Dressing Condition: Clean, Dry, Intact Peripheral IV Dressing Activity: Transparent dressing Peripheral IV Line Status/Patency: Continuous infusion Peripheral IV Site Condition: No complications Peripheral IV Equipment: IV Pump Neurological Language Able to speak clearly, Follows simple commands Neurological Symptoms Patient denies Gait Steady Extremity Movement Equal Swallowing Difficulty None Characteristics of Communication Appropriate Characteristics of Speech Clear Facial Symmetry Symmetric Level of Consciousness Alert Aspiration Risk None VIRI Yes Left Pupil Description Regular, Round Right Pupil Description Regular, Round Left Pupil Reaction Brisk Right Pupil Reaction Brisk Pupil Size, Left 3 mm Pupil Size, Right 3 mm Strength All Extremities Moderate Left Upper Extremity Sensation Intact Right Upper Extremity Sensation Intact Left Lower Extremity Sensation Intact Right Lower Extremity Sensation Intact CN V Facial Sensation Corneal reflex present, Light touch equal bilaterally CN VII Facial Expression and Symmetry Facial movement symmetrical CN IX, X Swallowing, Gag Reflex Swallowing present Violence Risk Confused No Violence Risk Irritable No Violence Risk Boisterous No Violence Risk Verbal Threats No Violence Risk Physical Threats No Violence Risk Attacking Objects No Violence Risk Predictor Score 0 Violence Risk Intervention None Violence Risk Current Interventions None Affect/Behavior Appropriate, Calm, Cooperative Orientation Oriented x 4 Appetite Good Eating Difficulties None 09/07/2022 7:13 EST Able To Drink Order Detail Yes Able To Sign Consents Order Detail Yes Code Status Order Detail Full code IV Order Detail Yes Dialysis Schedule Order Detail N/A Has Diabetes Order Detail Yes Isolation Precautions Order Detail None Nurse Collect Order Detail 0 Oxygen Order Detail No Order Detail No Prior Valve Replacement Order Detail No Transport Mode Order Detail Bed Nurse and Monitor Zoology Technical Officer Details Form Zoology Technical Officer Details Form 09/07/2022 7:00 EST Urine Voided 300 mL 09/07/2022 6:59 EST Sodium Chloride 0.9% 400 mL mL 09/07/2022 6:42 EST Blood Glucose, Capillary 108 mg/dL Blood Glucose Testing Reason Routine Temperature Oral 36.7 DegC Heart Rate Monitored 61 bpm Respiratory Rate 16 br/min Systolic Blood Pressure Non-Invasive 126 mmHg Diastolic Blood Pressure Non-Invasive 64 mmHg Oxygen Therapy Room air Oxygen Saturation 96 % Activity Status ADL Awake, Dangle, Lights dimmed, Repositions self Standard Safety ID band on, Allergy Band on, Call device within reach, Bed in low position, Wheels locked, Upper/Half-Length side-rails up, Phone within reach, personal items within reach, Safety level maintained, Hazards removed from floor, Non-Slip footwear High Risk Safety Non-Slip footwear, Room check performed Demonstrates Correct Call Light Use Yes 09/07/2022 6:41 EST Cardiac Rhythm Sinus rhythm Monitoring Lead III, V1/MCL1 OK Interval 0.19 second(s) QRS Duration 0.09 second(s) QT Interval 0.43 second(s) QTc Interval 0.44 second(s) ST Segment Measurement 0.[address] Segment Measurement -0.[address] Segment Measurement 0.[address] Segment Measurement 0.1 mm Alarms On and Functional Yes Heart Rate Alarm Set At - Low 50 Heart Rate Alarm Set At - High 120 09/07/2022 6:14 EST Activity Status ADL Resting Standard Safety ID band on, Allergy Band on, Call device within reach, Bed in low position, Wheels locked, Upper/Half-Length side-rails up, Phone within reach, personal items within reach, Safety level maintained, Non-Slip footwear High Risk Safety Room check performed Demonstrates Correct Call Light Use Yes 09/07/2022 5:29 EST Mechanical VTE Prophylaxis Education Not Done: Not Appropriate at this Time (Not Done) Sequential Compression Device Form Not Done (Not Done) 09/07/2022 4:24 EST Mechanical VTE Prophylaxis Education Not Done: Other (Not Done) Sequential Compression Device Form Not Done (Not Done) 09/07/2022 4:19 EST Temperature Oral 36.9 DegC Heart Rate Monitored 56 bpm LOW Respiratory Rate 16 br/min Systolic Blood Pressure Non-Invasive 110 mmHg Diastolic Blood Pressure Non-Invasive 60 mmHg Reason For Taking VItal Signs Routine Primary Pain Intensity 0 Primary Pain Nonverbal Response Nods No Pain Scale Type 0-10 Pain scale Monitor Alarms On and Limits Checked Cardiovascular Symptoms Edema Nail Bed Color [place] Capillary Refill < 2 seconds Heart Sounds ICU S1S2 Heart Rhythm Regular Dorsalis Pedis Pulse, Left 2+ Normal Dorsalis Pedis Pulse, Right 2+ Normal Posttibial Pulse, Left 1+ Thready Posttibial Pulse, Right 1+ Thready Respiratory Symptoms Difficulty breathing with activity Respirations Unlabored Respiratory Pattern Regular Breath Sounds Auscultated Anterior and posterior All Lobes Breath Sounds Clear, Diminished Cough None Oxygen Therapy Room air Oxygen Saturation 97 % Tracheal Position Midline Facial Movement Symmetric resting/crying Skin Symptoms Bruising All Extremity Description Normal for ethnicity Skin Temperature Warm Temperature All Extremities Warm Skin Description [place], Normal for ethnicity, Dry Skin Integrity Intact Skin Turgor Elastic Mucous Membrane Color [place] Mucous Membrane Description Moist Sensory Perception Bharath No impairment Moisture Bharath Rarely moist Activity Bharath Walks occasionally Mobility Bharath Slightly limited Nutrition Bharath Adequate Friction and Shear Bharath No apparent problem Bharath Score 20 Hospital Acquired Pressure Injury Risk None/minimal risk (score 19-23) Antecubital Right 18 gauge Peripheral IV Activity: Assessed Peripheral IV Dressing Condition: Clean, Dry, Intact Peripheral IV Dressing Activity: Transparent dressing Peripheral IV Line Status/Patency: Continuous infusion Peripheral IV Site Condition: No complications Peripheral IV Equipment: IV Pump Neurological Language Able to speak clearly, Follows simple commands Neurological Symptoms Patient denies Gait Steady Extremity Movement Equal Swallowing Difficulty None Characteristics of Communication Appropriate Characteristics of Speech Clear Facial Symmetry Symmetric Level of Consciousness Alert Aspiration Risk None Strength All Extremities Moderate Left Upper Extremity Sensation Intact Right Upper Extremity Sensation Intact Left Lower Extremity Sensation Intact Right Lower Extremity Sensation Intact CN V Facial Sensation Corneal reflex present, Light touch equal bilaterally CN VII Facial Expression and Symmetry Facial movement symmetrical CN IX, X Swallowing, Gag Reflex Swallowing present [place] Screen Daily History of Fall in Last 3 Months [place] No Presence of Secondary Diagnosis [place] Yes Use of Ambulatory Aid [place] None, bedrest, wheelchair, nurse IV/PRN Adapter Fall Risk [place] Yes Gait Weak or Impaired Fall Risk [place] Normal, bedrest, immobile Mental Status Fall Risk [place] Oriented to own ability [place] Fall Risk Score 35 Affect/Behavior Appropriate, Calm, Cooperative Orientation Oriented x 4 BMAT Existing Patient Condition/Safety No order for Strict Bedrest BMAT Level 1: Sit and Shake Sit, side bed/reach midline/shake hands BMAT Level 2: Stretch and Point Seated position, straighten 1 knee; Flex ankle & point toes BMAT Level 3: Stand Stand up w/o assist/Use of assist device BMAT Level 4: Walk March in place; step forward & back each foot BMAT Mobility Level 4 09/07/2022 4:15 EST WBC 6.4 10^3/mcL RBC 4.25 10^6/mcL Hgb 11.4 G/dL LOW Hct 34.7 % MCV 81.5 fL MCH 26.9 pg LOW MCHC 33.0 G/dL RDW 15.1 % Platelet 262 10^3/mcL MPV 8.0 fL Neutrophil % 50.3 % Lymphocyte % 36.9 % Monocyte % 8.9 % Eosinophil % 3.2 % Basophil % 0.7 % Neutrophil, Absolute 3.2 10^3/mcL Lymphocyte, Absolute 2.4 10^3/mcL Monocyte, Absolute 0.6 10^3/mcL Eosinophil, Absolute 0.2 10^3/mcL Basophil, Absolute 0.0 10^3/mcL Glucose Level 108 mg/dL Sodium Level 142 mEq/L Potassium Level 4.7 mEq/L Chloride 107 mEq/L CO2 32 mEq/L Electrolyte Balance 3.0 mEq/L LOW BUN 11.0 mg/dL Creatinine Lvl (s) 0.68 mg/dL BUN/Creatinine Ratio 16.2 ratio Calcium Lvl 9.5 mg/dL Magnesium Lvl 1.8 mg/dL GFR Non- >60 ml/min/1.73sqm NA GFR >60 ml/min/1.73sqm NA Creatinine Clearance Calc 75.10 mL/min 09/07/2022 4:03 EST Activity Status ADL Sleeping Standard Safety ID band on, Allergy Band on, Call device within reach, Bed in low position, Wheels locked, Upper/Half-Length side-rails up, Phone within reach, personal items within reach, Safety level maintained, Non-Slip footwear High Risk Safety Room check performed Demonstrates Correct Call Light Use Yes 09/07/2022 3:27 EST BiPAP/CPAP Mode CPAP 09/07/2022 3:00 EST Cardiac Rhythm Sinus rhythm Monitoring Lead II, V1/MCL1 OK Interval 0.19 second(s) QRS Duration 0.09 second(s) QT Interval 0.42 second(s) QTc Interval 0.46 second(s) ST Segment Measurement 0.[address] Segment Measurement -0.[address] Segment Measurement 0.[address] Segment Measurement 0 mm Alarms On and Functional Yes Heart Rate Alarm Set At - Low 40 Heart Rate Alarm Set At - High 120 Mechanical VTE Prophylaxis Education Not Done: Patient Refused (Not Done) Sequential Compression Device Form Not Done (Not Done) 09/07/2022 1:00 EST Electrocardiogram - EKG - CV Completed (In Progress) 09/07/2022 0:53 EST Heart Rate Monitored 52 bpm LOW Cardiac Rhythm Sinus bradycardia Monitoring Lead II, V1/MCL1 OK Interval 0.18 second(s) QRS Duration 0.10 second(s) QT Interval 0.44 second(s) QTc Interval 0.42 second(s) Alarms On and Functional Yes Heart Rate Alarm Set At - Low 40 Heart Rate Alarm Set At - High 120 09/07/2022 0:00 EST Able To Drink Order Detail Yes Able To Sign Consents Order Detail Yes Code Status Order Detail Full code IV Order Detail Yes Dialysis Schedule Order Detail N/A Has Diabetes Order Detail Yes Isolation Precautions Order Detail None Nurse Collect Order Detail 0 Oxygen Order Detail No Order Detail No Prior Valve Replacement Order Detail No Transport Mode Order Detail Bed Nurse and Monitor Zoology Technical Officer Details Form Zoology Technical Officer Details Form 09/06/2022 23:36 EST Heparin dose (APTT) Heparin IV APTT 57.5 seconds HI 09/06/2022 23:00 EST Oral Intake 50 mL Stool Count 0 EA Urine Voided 450 mL 09/06/2022 22:57 EST Sodium Chloride 0.9% Begin Bag 1,000 mL mL 09/06/2022 22:50 EST Temperature Oral 36.8 DegC Heart Rate Monitored 58 bpm LOW Respiratory Rate 18 br/min Systolic Blood Pressure Non-Invasive 118 mmHg Diastolic Blood Pressure Non-Invasive 52 mmHg LOW Blood Pressure Method Manual Blood Pressure Location Left arm Blood Pressure Cuff Size Medium Reason For Taking VItal Signs Routine Primary Pain Intensity 0 Primary Pain Nonverbal Response Nods No Pain Scale Type 0-10 Pain scale Cardiovascular Symptoms Edema Nail Bed Color [place] Capillary Refill < 2 seconds Heart Sounds ICU S1S2 Heart Rhythm Regular Murmur Auscultated No Dorsalis Pedis Pulse, Left 2+ Normal Dorsalis Pedis Pulse, Right 2+ Normal Posttibial Pulse, Left 1+ Thready Posttibial Pulse, Right 1+ [place] Radial Pulse, Left 2+ Normal Radial Pulse, Right 2+ Normal Respiratory Symptoms Difficulty breathing with activity Respirations Unlabored Respiratory Pattern Regular Breath Sounds Auscultated Anterior and posterior All Lobes Breath Sounds Clear, Diminished Cough and Deep Breathe Done Cough None Oxygen Therapy Room air Oxygen Saturation 95 % Tracheal Position Midline Abdomen Description Non-distended Abdomen Palpation Non-Tender Passing Flatus Yes Bowel Continence Continent Swallowing Disorder None Bowel Sounds All Quadrants Present Urinary Elimination Voiding, no difficulties Urine Color Yellow Urine Description Clear Facial Movement Symmetric resting/crying Skin Symptoms Bruising All Extremity Description [place] Skin Temperature Warm Temperature All Extremities Warm Skin Description [place], Normal for ethnicity, Dry Skin Integrity Intact Skin Turgor Elastic Mucous Membrane Color [place] Mucous Membrane Description Moist Continuous IV Infusions HBW Antecubital Right 18 gauge Peripheral IV Activity: Assessed Peripheral IV Dressing Condition: Clean, Dry, Intact Peripheral IV Dressing Activity: Transparent dressing Peripheral IV Line Status/Patency: Continuous infusion Peripheral IV Site Condition: No complications Peripheral IV Equipment: IV Pump Neurological Language Able to speak clearly Neurological Symptoms Patient denies Gait Steady Extremity Movement Equal Swallowing Difficulty None Characteristics of Communication Appropriate Characteristics of Speech Clear Facial Symmetry Symmetric Level of Consciousness Alert Aspiration Risk None Eye Opening Response Berta Spontaneously Best Motor Response [place] Obeys simple commands Best Verbal Response Berta Oriented Berta Coma Score 15 VIRI Yes Left Pupil Description Regular Right Pupil Description Regular Left Pupil Reaction Brisk Right Pupil Reaction Brisk Pupil Size, Left 3 mm Pupil Size, Right 3 mm Strength All Extremities Moderate Left Upper Extremity Sensation Intact Right Upper Extremity Sensation Intact Left Lower Extremity Sensation Intact Right Lower Extremity Sensation Intact CN V Facial Sensation Corneal reflex present CN VII Facial Expression and Symmetry Facial movement symmetrical CN VIII Hearing Spoken word equally audible left/right CN IX, X Swallowing, Gag Reflex Swallowing present Violence Risk Confused No Violence Risk Irritable No Violence Risk Boisterous No Violence Risk Verbal Threats No Violence Risk Physical Threats No Violence Risk Attacking Objects No Violence Risk Predictor Score 0 Violence Risk Intervention None Violence Risk Current Interventions None Affect/Behavior Appropriate, Calm, Cooperative Orientation Oriented x 4 Orientation Assessment Oriented x 4 Activity Status ADL Repositions self, Resting Beds/Devices Hospital bed Activity Assistance Independent Assistive Device None Standard Safety ID band on, Allergy Band on, Call device within reach, Bed in low position, Wheels locked, Upper/Half-Length side-rails up, Phone within reach, personal items within reach, Safety level maintained, Non-Slip footwear High Risk Safety Non-Slip footwear, Room check performed Demonstrates Correct Call Light Use Yes 09/06/2022 22:10 EST atorvastatin 10 mg mg 09/06/2022 22:00 EST CAM Mental Status Change & Fluctuation No CAM Inattention No CAM Disorganized Thinking No CAM Altered Level of Consciousness No Confusion Assessment Method Score Negative Individuals Taught Patient Learning Readiness Willing to learn Barriers to Learning None evident Teaching Method Explanation Teaching Evaluation Verbalizes/Nonverbally indicates understanding Identify Action of Anticoagulant Yes Identify Reason/Purpose of Anticoagulant Yes Reason/Purpose of Anticoagulant Rx or prevent blood clots Identify Side Effects of Anticoagulant Yes Identify Activities Causing Cuts/Bruises Yes Id. Problems Requiring Phy. Notification Yes Id. 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 09/06/2022 19:24 EST Heart Rate Monitored 54 bpm LOW Primary Pain Intensity 0 Primary Pain Nonverbal Response Nods No Pain Scale Type 0-10 Pain scale Cardiovascular Symptoms Edema Nail Bed Color [place] Capillary Refill < 2 seconds Heart Sounds ICU S1S2 Heart Rhythm Regular Murmur Auscultated No Dorsalis Pedis Pulse, Left 2+ Normal Dorsalis Pedis Pulse, Right 2+ Normal Posttibial Pulse, Left 1+ Thready Posttibial Pulse, Right 1+ Thready Radial Pulse, Left 2+ Normal Radial Pulse, Right 2+ Normal Cardiac Rhythm Sinus bradycardia, First degree heart block Monitoring Lead III, V1/MCL1 OK Interval 0.20 second(s) QRS Duration 0.11 second(s) QT Interval 0.46 second(s) QTc Interval 0.42 second(s) Alarms On and Functional Yes Heart Rate Alarm Set At - Low 40 Heart Rate Alarm Set At - High 120 Respiratory Symptoms Difficulty breathing with activity Respirations Unlabored Respiratory Pattern Regular Breath Sounds Auscultated Anterior and posterior All Lobes Breath Sounds Clear, Diminished Cough and Deep Breathe Done Cough None Tracheal Position Midline Abdomen Description Non-distended Abdomen Palpation Non-Tender Passing Flatus Yes Bowel Movement Last Date 09/06/2022 Bowel Continence Continent Swallowing Disorder None Bowel Sounds All Quadrants Present Urinary Elimination Voiding, no difficulties Urine Description Clear Facial Movement Symmetric resting/crying Skin Symptoms Bruising All Extremity Description [place] Skin Temperature Warm Temperature All Extremities Warm Skin Description [place], Normal for ethnicity, Dry Skin Integrity Intact Skin Turgor Elastic Mucous Membrane Color [place] Mucous Membrane Description Moist Antecubital Right 18 gauge Peripheral IV Activity: Assessed Peripheral IV Dressing Condition: Clean, Dry, Intact Peripheral IV Dressing Activity: Transparent dressing Peripheral IV Line Status/Patency: Continuous infusion Peripheral IV Site Condition: No complications Peripheral IV Equipment: IV Pump Neurological Language Able to speak clearly Neurological Symptoms Patient denies Gait Unable to assess Extremity Movement Equal Swallowing Difficulty None Characteristics of Communication Appropriate Characteristics of Speech Clear Facial Symmetry Symmetric Level of Consciousness Alert Aspiration Risk None VIRI Yes Left Pupil Description Regular Right Pupil Description Regular Left Pupil Reaction Brisk Right Pupil Reaction Brisk Pupil Size, Left 3 mm Pupil Size, Right 3 mm Strength All Extremities Moderate Left Upper Extremity Sensation Intact Right Upper Extremity Sensation Intact Left Lower Extremity Sensation Intact Right Lower Extremity Sensation Intact CN V Facial Sensation Corneal reflex present CN VII Facial Expression and Symmetry Facial movement symmetrical CN VIII Hearing Spoken word equally audible left/right CN IX, X Swallowing, Gag Reflex Swallowing present Violence Risk Confused No Violence Risk Irritable No Violence Risk Boisterous No Violence Risk Verbal Threats No Violence Risk Physical Threats No Violence Risk Attacking Objects No Violence Risk Predictor Score 0 Violence Risk Intervention None Violence Risk Current Interventions None Affect/Behavior Appropriate, Calm, Cooperative Orientation Oriented x 4 BMAT Existing Patient Condition/Safety No order for Strict Bedrest BMAT Level 1: Sit and Shake Sit, side bed/reach midline/shake hands BMAT Level 2: Stretch and Point Seated position, straighten 1 knee; Flex ankle & point toes BMAT Level 3: Stand Stand up w/o assist/Use of assist device BMAT Level 4: Walk March in place; step forward & back each foot BMAT Mobility Level 4 Orientation Assessment Oriented x 4 Activity Status ADL Awake, Repositions self Beds/Devices Hospital bed Activity Assistance Supervision Assistive Device None Standard Safety ID band on, Allergy Band on, Call device within reach, Bed in low position, Wheels locked, Phone within reach, personal items within reach, Safety level maintained, Non-Slip footwear High Risk Safety Non-Slip footwear, Room check performed Demonstrates Correct Call Light Use Yes Appetite Good Eating Difficulties None 09/06/2022 19:19 EST BiPAP/CPAP Mode CPAP BiPAP/CPAP Machine Model Patient's Home Unit Patient Tolerance BiPAP/CPAP Well 09/06/2022 18:47 EST Temperature Oral 36.8 DegC Heart Rate Monitored 66 bpm Respiratory Rate 16 br/min Systolic Blood Pressure Non-Invasive 118 mmHg Diastolic Blood Pressure Non-Invasive 66 mmHg Blood Pressure Method Manual Blood Pressure Location Left arm Blood Pressure Cuff Size Medium Reason For Taking VItal Signs Routine Oxygen Therapy Room air Oxygen Saturation 98 % Activity Status ADL Awake, Resting Beds/Devices Hospital bed Activity Assistance Supervision Assistive Device None Standard Safety ID band on, Allergy Band on, Call device within reach, Bed in low position, Wheels locked, Upper/Half-Length side-rails up, Phone within reach, personal items within reach, Bedside Cart Locked, Safety level maintained High Risk Safety Room check performed Demonstrates Correct Call Light Use Yes 09/06/2022 18:00 EST Urine Count 1 EA Urine Voided 100 mL 09/06/2022 17:35 EST Urine Color Yellow Urine Description Clear Gait Steady 09/06/2022 17:32 EST Heart Rate Monitored 57 bpm LOW Activity Status ADL Up to bathroom, Up to chair Standard Safety Safety level maintained 09/06/2022 17:31 EST Post Rehab Outcome Not Done: Task Duplication (Not Done) Mechanical VTE Prophylaxis Education Not Done: Task Duplication (Not Done) Able To Drink Order Detail Yes Able To Sign Consents Order Detail Yes Code Status Order Detail Full code IV Order Detail Yes Dialysis Schedule Order Detail N/A Has Diabetes Order Detail Yes Isolation Precautions Order Detail None Nurse Collect Order Detail 0 Oxygen Order Detail No Order Detail No Prior Valve Replacement Order Detail No Transport Mode Order Detail Bed Nurse and Monitor Cardiac Rehab - Phase I Not Done (Not Done) Zoology Technical Officer Details Form Zoology Technical Officer Details Form Sequential Compression Device Form Not Done (Not Done) 09/06/2022 17:21 EST Feeding Assistance Independent Dinner Percent 75 % Appetite Good Eating Difficulties None 09/06/2022 17:19 EST Primary Pain Intensity 0 Primary Pain Nonverbal Response Appears restful Pain Scale Type 0-10 Pain scale Activity Status ADL Repositions self, Up to chair Activity Assistance Supervision Assistive Device None Standard Safety ID band on, Call device within reach, Bed in low position, Wheels locked, Upper/Half-Length side-rails up, Safety level maintained High Risk Safety Room check performed Demonstrates Correct Call Light Use Yes heparin 10 unit(s)/kg/hr unit(s) Dextrose 5% Premix Diluent Dextrose 5% Premix Diluent mL 09/06/2022 17:16 EST heparin 4,000 unit(s) unit(s) 09/06/2022 17:00 EST insulin lispro Not Done: Below Sliding Scale (Not Done) 09/06/2022 16:20 EST Blood Glucose, Capillary 111 mg/dL Blood Glucose Testing Reason Routine 09/06/2022 16:13 EST Electrocardiogram - EKG - CV Completed (In Progress) 09/06/2022 16:08 EST Heparin dose (APTT) Heparin IV APTT 34.3 seconds 09/06/2022 16:00 EST Heart Rate Monitored 53 bpm LOW Reason For Taking VItal Signs Routine Primary Pain Location Chest Primary Pain Intensity 2 Primary Pain Nonverbal Response Nods Yes Pain Scale Type 0-10 Pain scale Monitor Alarms On and Limits Checked Cardiovascular Symptoms Edema Nail Bed Color [place] Capillary Refill < 2 seconds Heart Sounds ICU S1S2 Heart Rhythm Regular Murmur Auscultated No Dorsalis Pedis Pulse, Left 2+ Normal Dorsalis Pedis Pulse, Right 2+ Normal Radial Pulse, Left 2+ Normal Radial Pulse, Right 2+ Normal Cardiac Rhythm Sinus rhythm, First degree heart block Alarms On and Functional Yes Heart Rate Alarm Set At - Low 50 Heart Rate Alarm Set At - High 120 Respiratory Symptoms Difficulty breathing with activity Respirations Unlabored Respiratory Pattern Regular Breath Sounds Auscultated Anterior and posterior All Lobes Breath Sounds Clear, Diminished Cough and Deep Breathe Done Cough None Oxygen Therapy Room air Tracheal Position Midline Abdomen Description Non-distended, Symmetric, Soft Abdomen Palpation Non-Tender, Soft Passing Flatus Yes Bowel Sounds All Quadrants Present Urinary Elimination Voiding, no difficulties Facial Movement Makes facial grimaces, Symmetric resting/crying Skin Symptoms Bruising All Extremity Description [place] Skin Temperature Warm Temperature All Extremities Warm Skin Description [place], Normal for ethnicity, Dry Skin Integrity Intact Skin Turgor Elastic Mucous Membrane Color [place] Mucous Membrane Description Moist Continuous IV Infusions HBW Antecubital Right 18 gauge Peripheral IV Activity: Assessed Peripheral IV Dressing Condition: Clean, Dry, Intact Peripheral IV Dressing Activity: Transparent dressing Peripheral IV Line Status/Patency: Continuous infusion Peripheral IV Site Condition: No complications Peripheral IV Equipment: IV Pump Neurological Language Able to speak clearly Neurological Symptoms Patient denies Extremity Movement Equal Swallowing Difficulty None Characteristics of Communication Appropriate Characteristics of Speech Clear Facial Symmetry Symmetric Level of Consciousness Alert Aspiration Risk None Eye Opening Response Berta Spontaneously Best Motor Response [place] Obeys simple commands Best Verbal Response [place] Oriented [place] Coma Score 15 VIRI Yes Left Pupil Description Regular Right Pupil Description Regular Left Pupil Reaction Brisk Right Pupil Reaction Brisk Pupil Size, Left 3 mm Pupil Size, Right 3 mm Strength All Extremities Moderate Left Upper Extremity Sensation Intact Right Upper Extremity Sensation Intact Left Lower Extremity Sensation Intact Right Lower Extremity Sensation Intact CN V Facial Sensation Corneal reflex present CN VII Facial Expression and Symmetry Facial movement symmetrical, Wrinkles forehead CN VIII Hearing Spoken word equally audible left/right CN IX, X Swallowing, Gag Reflex Swallowing present, Gag reflex present Affect/Behavior Appropriate, Calm, Cooperative Orientation Oriented x 4 Orientation Assessment Oriented x 4 Activity Status ADL Repositions self, Resting Beds/Devices Hospital bed Activity Assistance Supervision Standard Safety ID band on, Allergy Band on, Call device within reach, Bed in low position, Wheels locked, Upper/Half-Length side-rails up, Phone within reach, personal items within reach, Assistive devices within reach, Safety level maintained, Hazards removed from floor, Non-Slip footwear High Risk Safety Room check performed Demonstrates Correct Call Light Use Yes heparin 8 unit(s)/kg/hr unit(s) Dextrose 5% Premix Diluent Dextrose 5% Premix Diluent mL 09/06/2022 15:59 EST Heart Rate Monitored 53 bpm LOW Reason For Taking VItal Signs Routine Primary Pain Location Chest Primary Pain Intensity 2 Primary Pain Nonverbal Response Nods Yes Pain Scale Type 0-10 Pain scale Monitor Alarms On and Limits Checked Cardiovascular Symptoms Edema Nail Bed Color [place] Capillary Refill < 2 seconds Heart Sounds ICU S1S2 Heart Rhythm Regular Murmur Auscultated No Dorsalis Pedis Pulse, Left 2+ Normal Dorsalis Pedis Pulse, Right 2+ Normal Posttibial Pulse, Left 1+ Thready Posttibial Pulse, Right 1+ Thready Radial Pulse, Left 2+ Normal Radial Pulse, Right 2+ Normal Leg edema Bilateral Edema Ratin+ trace/2mm Cardiac Rhythm Sinus rhythm Monitoring Lead II, V1/MCL1 OK Interval 0.22 second(s) QRS Duration 0.09 second(s) QT Interval 0.44 second(s) QTc Interval 0.41 second(s) Alarms On and Functional Yes Heart Rate Alarm Set At - Low 40 Heart Rate Alarm Set At - High 120 Respiratory Symptoms Difficulty breathing with activity Respirations Unlabored Respiratory Pattern Regular Breath Sounds Auscultated Anterior and posterior All Lobes Breath Sounds Clear, Diminished Cough and Deep Breathe Done Cough None Oxygen Therapy Room air Tracheal Position Midline Abdomen Description Non-distended Abdomen Palpation Non-Tender Passing Flatus Yes Bowel Movement Last Date 09/06/2022 Bowel Continence Continent Swallowing Disorder None Bowel Sounds All Quadrants Present Urinary Elimination Voiding, no difficulties Facial Movement Symmetric resting/crying Skin Symptoms Bruising All Extremity Description [place] Skin Temperature Warm Temperature All Extremities Warm Skin Description [place], Normal for ethnicity Skin Integrity Intact Skin Turgor Elastic (Modified) Mucous Membrane Color [place] Mucous Membrane Description Moist Sensory Perception Bharath No impairment Moisture Bharath Rarely moist Activity Bharath Walks occasionally Mobility Bharath Slightly limited Nutrition Bharath Adequate Friction and Shear Bharath Potential problem Bharath Score 19 Hospital Acquired Pressure Injury Risk None/minimal risk (score 19-23) Continuous IV Infusions hbw Antecubital Right 18 gauge Peripheral IV Activity: Assessed Peripheral IV Dressing Condition: Clean, Dry, Intact Peripheral IV Dressing Activity: Transparent dressing Peripheral IV Line Status/Patency: Continuous infusion Peripheral IV Site Condition: No complications Peripheral IV Equipment: IV Pump Neurological Language Able to speak clearly Neurological Symptoms Patient denies Gait Unable to assess (Modified) Extremity Movement Equal Swallowing Difficulty None Characteristics of Communication Appropriate Characteristics of Speech Clear Facial Symmetry Symmetric Level of Consciousness Alert Aspiration Risk None Eye Opening Response Berta Spontaneously Best Motor Response [place] Obeys simple commands Best Verbal Response [place] Oriented Berta Coma Score 15 VIRI Yes Left Pupil Description Regular, Round Right Pupil Description Regular, Round Left Pupil Reaction Brisk Right Pupil Reaction Brisk Pupil Size, Left 3 mm Pupil Size, Right 3 mm Strength All Extremities Moderate Left Upper Extremity Sensation Intact Right Upper Extremity Sensation Intact Left Lower Extremity Sensation Intact Right Lower Extremity Sensation Intact CN V Facial Sensation Light touch equal bilaterally CN VII Facial Expression and Symmetry Facial movement symmetrical CN VIII Hearing Spoken word equally audible left/right CN IX, X Swallowing, Gag Reflex Swallowing present [place] Screen Daily History of Fall in Last 3 Months [place] No Presence of Secondary Diagnosis [place] Yes Use of Ambulatory Aid [place] None, bedrest, wheelchair, nurse IV/PRN Adapter Fall Risk [place] Yes Gait Weak or Impaired Fall Risk [place] Normal, bedrest, immobile Mental Status Fall Risk [place] Oriented to own ability [place] Fall Risk Score 35 Violence Risk Confused No Violence Risk Irritable No Violence Risk Boisterous No Violence Risk Verbal Threats No Violence Risk Physical Threats No Violence Risk Attacking Objects No Violence Risk Predictor Score 0 Violence Risk Intervention None Violence Risk Current Interventions None Affect/Behavior Appropriate, Calm, Cooperative Orientation Oriented x 4 Orientation Assessment Oriented x 4 Activity Status ADL Awake, Repositions self Activity Assistance Supervision Assistive Device None Standard Safety ID band on, Call device within reach, Bed in low position, Wheels locked, Upper/Half-Length side-rails up, Safety level maintained High Risk Safety Room check performed Demonstrates Correct Call Light Use Yes 09/06/2022 15:49 EST Cardiology Consultation EP Consult Note (Modified) 09/06/2022 15:01 EST Echocardiogram, Adult - CV Signed 09/06/2022 15:00 EST Urine Voided 450 mL 09/06/2022 14:30 EST Temperature Oral 36.4 DegC Heart Rate Monitored 52 bpm LOW Respiratory Rate 18 br/min Systolic Blood Pressure Non-Invasive 108 mmHg Diastolic Blood Pressure Non-Invasive 62 mmHg Blood Pressure Method Manual Blood Pressure Location Left arm Blood Pressure Cuff Size Medium Reason For Taking VItal Signs Routine Oxygen Therapy Room air Oxygen Saturation 94 % Activity Status ADL Awake, Resting Activity Assistance Supervision Assistive Device None Standard Safety ID band on, Allergy Band on, Call device within reach, Bed in low position, Wheels locked, Upper/Half-Length side-rails up, Phone within reach, personal items within reach, Bedside Cart Locked, Safety level maintained High Risk Safety Room check performed Demonstrates Correct Call Light Use Yes 09/06/2022 13:24 EST Individuals Taught Patient Learning Readiness Willing to learn Barriers to Learning None evident Teaching Method Explanation Teaching Evaluation Verbalizes/Nonverbally indicates understanding Mechanical VTE Prophylaxis Education Education deferred- patient sleeping SCD Removed/Off bilateral knee high Reason SCD Removed/Off Patient refused Identify Action of Anticoagulant Yes Identify Reason/Purpose of Anticoagulant Yes Reason/Purpose of Anticoagulant Rx or prevent blood clots Identify Side Effects of Anticoagulant Yes Identify Activities Causing Cuts/Bruises Not done this session Id. Problems Requiring Phy. Notification Not done this session Id. Importance of Follow-Up Lab Work Not done this session Identify Generic and Trade Names of Med Yes Sequential Compression Device Form Sequential Compression Device Form 09/06/2022 12:05 EST Notify date/time 09/06/2022 12:05 Provider Notified ABHISHEK ANNE MD Details of Results Received mts stated patient has pacemaker orders for tomorrow, so she can eat now. 09/06/2022 12:00 EST insulin lispro Not Done: Below Sliding Scale (Not Done) 09/06/2022 11:59 EST Past 12 Mo. Worry Food Run Out, No Money Never true Past 12 Mo. Food Bought Ran Out,No Money Never true Lives In Single level home Living Situation Lives with spouse Patient's Responsibilities Personal ADL Transition Planning Note Transition Planning Initial Assessment 09/06/2022 11:58 EST What Is Your Living Situation Today I have a steady place to live Where You Live, Any Problems With None Past 12 Mo. Worry Food Run Out, No Money Never true Past 12 Mo. Food Bought Ran Out,No Money Never true Past 12 Mo. Lack Reliable Transportation No Past 12 Mo. Utilites Threatened Shut Off No How Often Anyone Physically Hurts You Never How Often Insulted or Talked Down To Never How Often Threatened With Harm Never How Often Screamed Or Cursed At You Never HRSN Screening Tool Safety Score 4 Health-Related Screening Tool Health-Related Screening Tool 09/06/2022 11:45 EST Blood Glucose, Capillary 110 mg/dL Blood Glucose Testing Reason Routine Temperature Oral 36.5 DegC Heart Rate Monitored 50 bpm LOW Respiratory Rate 18 br/min Systolic Blood Pressure Non-Invasive 110 mmHg Diastolic Blood Pressure Non-Invasive 60 mmHg Oxygen Therapy Room air Oxygen Saturation 94 % Activity Status ADL Lights dimmed, Resting, Warm blankets, Watching TV Activity Assistance Supervision Assistive Device None Standard Safety Visitor at bedside, Safety level maintained High Risk Safety Room check performed Demonstrates Correct Call Light Use Yes 09/06/2022 11:26 EST Cardiac EP Progress Note (Modified) 09/06/2022 11:24 EST Concomitant Disease Process Other condition complicating cure Concomitant Disease Process Score 1 Palliative restricted score 0 Palliative Total Score 1 LACE Length of Stay 2 days LACE Acute Admission Inpatient LACE ED Visits 2 LACE CoMorbidity Score 4 LACE Score 11 Readmission Risk Screening Note Readmission Risk Screening 09/06/2022 11:22 EST Cardiac Rhythm Sinus rhythm, First degree heart block Monitoring Lead III, V1/MCL1 OK Interval 0.22 second(s) QRS Duration 0.11 second(s) QT Interval 0.44 second(s) QTc Interval 0.44 second(s) Alarms On and Functional Yes Heart Rate Alarm Set At - Low 50 Heart Rate Alarm Set At - High 120 09/06/2022 11:14 EST Heart Rate Monitored 48 bpm LOW Primary Pain Intensity 0 Pain Scale Type 0-10 Pain scale Monitor Alarms On and Limits Checked Nail Bed Color [place] Capillary Refill < 2 seconds Heart Sounds ICU S1S2 Heart Rhythm Regular Dorsalis Pedis Pulse, Left 1+ Thready Dorsalis Pedis Pulse, Right 1+ Thready Posttibial Pulse, Left 1+ Thready Posttibial Pulse, Right 1+ Thready Radial Pulse, Left 2+ Normal Radial Pulse, Right 2+ Normal Respirations Unlabored Respiratory Pattern Regular Breath Sounds Auscultated Anterior and posterior All Lobes Breath Sounds Clear, Diminished Oxygen Therapy Room air Abdomen Description Non-distended, Symmetric, Soft Abdomen Palpation Non-Tender, Soft Bowel Sounds All Quadrants Present Urinary Elimination Voiding, no difficulties Skin Symptoms Bruising All Extremity Description [place] Skin Temperature Warm Temperature All Extremities Warm Skin Description [place] Skin Integrity Intact Skin Turgor Non-Elastic Mucous Membrane Color [place] Mucous Membrane Description Moist Antecubital Right 18 gauge Peripheral IV Activity: Assessed Peripheral IV Dressing Condition: Clean, Dry, Intact Peripheral IV Dressing Activity: Transparent dressing Peripheral IV Line Status/Patency: Continuous infusion Peripheral IV Site Condition: No complications Peripheral IV Equipment: IV Pump Neurological Language Able to speak clearly Neurological Symptoms Patient denies Swallowing Difficulty None Characteristics of Communication Appropriate Characteristics of Speech Clear Level of Consciousness Alert Aspiration Risk None VIRI Yes Strength All Extremities Moderate Left Upper Extremity Sensation Intact Right Upper Extremity Sensation Intact Left Lower Extremity Sensation Intact Right Lower Extremity Sensation Intact Affect/Behavior Appropriate Orientation Oriented x 4 Orientation Assessment Oriented x 4 Activity Status ADL Awake, Up to chair Activity Assistance Supervision Assistive Device None Standard Safety ID band on, Allergy Band on, Call device within reach, Bed in low position, Wheels locked, Upper/Half-Length side-rails up, Phone within reach, personal items within reach High Risk Safety Door open, Bathroom light on, Non-Slip footwear, Room check performed Demonstrates Correct Call Light Use Yes heparin 8 unit(s)/kg/hr unit(s) Dextrose 5% Premix Diluent Dextrose 5% Premix Diluent mL 09/06/2022 10:37 EST CAM Mental Status Change & Fluctuation No CAM Inattention No CAM Disorganized Thinking No CAM Altered Level of Consciousness No Confusion Assessment Method Score Negative Individuals Taught Patient Learning Readiness Willing to learn Barriers to Learning None evident Teaching Method Explanation Teaching Evaluation Verbalizes/Nonverbally indicates understanding Mechanical VTE Prophylaxis Education Purpose of Mechanical VTE Prophylaxis, Wear device at all times when in bed/chair, Explain the higher risk for falling, Call for assistance to re-apply device, Antiembolism stockings should be smooth & wrinkle-free SCD Removed/Off bilateral knee high Reason SCD Removed/Off Ambulating in room Sequential Compression Device Form Sequential Compression Device Form 09/06/2022 10:35 EST Cardiology Progress Note Progress Note (Modified) 09/06/2022 10:33 EST heparin Begin Bag 2.5 mL unit(s) Dextrose 5% Premix Diluent Begin Bag 250 mL mL 09/06/2022 10:18 EST Heparin dose (APTT) Unknown APTT 30.9 seconds Protime 12.9 seconds PT International Ratio 1.1 ratio NA 09/06/2022 9:54 EST Notify date/time 09/06/2022 9:54 Provider Notified RHETT MORFIN MD Notification Method Answering service Information Communicated Consult 09/06/2022 8:18 EST Cardiac Rehab Session Held Yes Cardiac Rehab Contraindicate to Steps2&3 HR<40 or >130 Post Rehab Outcome Continue same step [place] Screen Daily History of Fall in Last 3 Months [place] No Presence of Secondary Diagnosis [place] Yes Use of Ambulatory Aid [place] None, bedrest, wheelchair, nurse IV/PRN Adapter Fall Risk [place] Yes Gait Weak or Impaired Fall Risk [place] Normal, bedrest, immobile Mental Status Fall Risk [place] Oriented to own ability [place] Fall Risk Score 35 BMAT Existing Patient Condition/Safety No order for Strict Bedrest BMAT Level 1: Sit and Shake Sit, side bed/reach midline/shake hands BMAT Level 2: Stretch and Point Seated position, straighten 1 knee; Flex ankle & point toes BMAT Level 3: Stand Stand up w/o assist/Use of assist device BMAT Level 4: Walk March in place; step forward & back each foot BMAT Mobility Level 4 Individuals Taught Patient Learning Readiness Willing to learn Barriers to Learning None evident Teaching Method Explanation Teaching Evaluation Verbalizes/Nonverbally indicates understanding Education Topics Fall Prevention Bed height/stabilization, Conventional call light use, Door open, Fall prevention protocol Cardiac Rehab - Phase I Cardiac Rehab - Phase I 09/06/2022 8:02 EST sertraline 50 mg mg 09/06/2022 8:00 EST insulin lispro Not Done: Below Sliding Scale (Not Done) 09/06/2022 7:36 EST Violence Risk Confused No Violence Risk Irritable No Violence Risk Boisterous No Violence Risk Verbal Threats No Violence Risk Physical Threats No Violence Risk Attacking Objects No Violence Risk Predictor Score 0 Violence Risk Intervention None Violence Risk Current Interventions None 09/06/2022 7:35 EST Able To Drink Order Detail Yes Able To Sign Consents Order Detail Yes Code Status Order Detail Full code IV Order Detail Yes Dialysis Schedule Order Detail N/A Has Diabetes Order Detail Yes Isolation Precautions Order Detail None Nurse Collect Order Detail 0 Oxygen Order Detail No Order Detail No Prior Valve Replacement Order Detail No Transport Mode Order Detail Bed Nurse and Monitor Zoology Technical Officer Details Form Zoology Technical Officer Details Form 09/06/2022 7:19 EST Blood Glucose, Capillary 100 mg/dL Blood Glucose Testing Reason Routine Temperature Oral 36.5 DegC Heart Rate Monitored 51 bpm LOW Respiratory Rate 18 br/min Systolic Blood Pressure Non-Invasive 134 mmHg Diastolic Blood Pressure Non-Invasive 55 mmHg LOW Oxygen Therapy Room air Oxygen Saturation 96 % Activity Status ADL Awake, Dangle, Lights dimmed, Watching TV Activity Assistance Supervision Assistive Device None Standard Safety ID band on, Allergy Band on, Call device within reach, Bed in low position, Wheels locked, Upper/Half-Length side-rails up, Phone within reach, personal items within reach, Visitor atbedside, Safety level maintained, Hazards removed from floor, Non-Slip footwear, Precautions maintained High Risk Safety Room check performed Demonstrates Correct Call Light Use Yes 09/06/2022 7:05 EST Notify date/time 09/06/2022 7:05 Provider Notified LORELEI DURAN MD Notification Method Phone Information Communicated Nurse communication Details Communicated patient bp 170s on dopamine drip. patient also feeling sick from drip, what does he want to do? Notification Outcome Orders received Person Reporting Result(s) arianne paul rn Details of Results Received md stated he wants dopamine drip turned off. Results Read Back Yes DOPamine mcg/kg/min mg Dextrose 5% Premix Diluent Dextrose 5% Premix Diluent mL 09/06/2022 7:00 EST Oral Intake 425 mL Urine Voided 725 mL 09/06/2022 6:46 EST Heart Rate Monitored 54 bpm LOW Primary Pain Intensity 0 Pain Scale Type 0-10 Pain scale Monitor Alarms On and Limits Checked Nail Bed Color [place] Capillary Refill < 2 seconds Heart Sounds ICU S1S2 Heart Rhythm Regular Dorsalis Pedis Pulse, Left 1+ Thready Dorsalis Pedis Pulse, Right 1+ Thready Posttibial Pulse, Left 1+ Thready Posttibial Pulse, Right 1+ Thready Radial Pulse, Left 2+ Normal Radial Pulse, Right 2+ Normal Respirations Unlabored Respiratory Pattern Regular Breath Sounds Auscultated Anterior and posterior All Lobes Breath Sounds Clear, Diminished Cough and Deep Breathe Done Cough None Oxygen Therapy Room air Tracheal Position Midline Abdomen Description Non-distended, Symmetric, Soft Abdomen Palpation Non-Tender, Soft Passing Flatus Yes Swallowing Disorder None Bowel Sounds All Quadrants Present Urinary Elimination Voiding, no difficulties Facial Movement Symmetric resting/crying Skin Symptoms Bruising All Extremity Description [place] Skin Temperature Warm Temperature All Extremities Warm Skin Description [place] Skin Integrity Intact Skin Turgor Non-Elastic Mucous Membrane Color [place] Mucous Membrane Description Moist Antecubital Right 18 gauge Peripheral IV Activity: Assessed Peripheral IV Dressing Condition: Clean, Dry, Intact Peripheral IV Dressing Activity: Transparent dressing Peripheral IV Line Status/Patency: Continuous infusion Peripheral IV Site Condition: No complications Peripheral IV Equipment: IV Pump Neurological Language Able to speak clearly Neurological Symptoms Patient denies Gait Steady Extremity Movement Equal Swallowing Difficulty None Characteristics of Communication Appropriate Characteristics of Speech Clear Facial Symmetry Symmetric Level of Consciousness Alert Aspiration Risk None VIRI Yes Left Pupil Description Regular, Round Right Pupil Description Regular, Round Left Pupil Reaction Brisk Right Pupil Reaction Brisk Pupil Size, Left 3 mm Pupil Size, Right 3 mm Strength All Extremities Moderate Left Upper Extremity Sensation Intact Right Upper Extremity Sensation Intact Left Lower Extremity Sensation Intact Right Lower Extremity Sensation Intact CN V Facial Sensation Light touch equal bilaterally CN VII Facial Expression and Symmetry Facial movement symmetrical CN VIII Hearing Spoken word equally audible left/right CN IX, X Swallowing, Gag Reflex Swallowing present Affect/Behavior Appropriate Orientation Oriented x 4 Orientation Assessment Oriented x 4 Activity Status ADL Sleeping quietly with easy respirations Activity Assistance Supervision Assistive Device None Standard Safety ID band on, Allergy Band on, Call device within reach, Bed in low position, Wheels locked, Upper/Half-Length side-rails up, Phone within reach, personal items within reach, Visitor atbedside High Risk Safety Door open, Bathroom light on, Non-Slip footwear, Room check performed Demonstrates Correct Call Light Use Yes DOPamine 5 mcg/kg/min mg Dextrose 5% Premix Diluent Dextrose 5% Premix Diluent mL Appetite Good Eating Difficulties None 09/06/2022 6:42 EST DOPamine Begin Bag 10 mL mg Dextrose 5% Premix Diluent Begin Bag 250 mL mL 09/06/2022 6:00 EST Electrocardiogram - EKG - CV Completed (In Progress) 09/06/2022 5:59 EST Cardiac Rhythm Sinus rhythm, First degree heart block Monitoring Lead III, V1/MCL1 OK Interval 0.21 second(s) QRS Duration 0.11 second(s) QT Interval 0.47 second(s) QTc Interval 0.43 second(s) Alarms On and Functional Yes Heart Rate Alarm Set At - Low 50 Heart Rate Alarm Set At - High 120 09/06/2022 5:56 EST Notify date/time 09/06/2022 5:56 Notification Method Phone Information Communicated Nurse communication Details Communicated contacted mts because patient has been having HR in the 30s and she is having some chest pressure and aching. Notification Outcome Orders not received Person Reporting Result(s) arianne paul rn Details of Results Received mts stated he is going to contact the fellow because he thinks she needs a pacemaker but still complete the ekg. Results Read Back Yes 09/06/2022 5:55 EST Primary Pain Location Chest Primary Pain Laterality Bilateral Primary Pain Intensity 3 Primary Pain Quality Aching, Pressure Pain Scale Type 0-10 Pain scale 09/06/2022 5:02 EST WBC 8.8 10^3/mcL RBC 4.36 10^6/mcL Hgb 11.7 G/dL LOW Hct 35.7 % MCV 81.9 fL MCH 26.8 pg LOW MCHC 32.7 G/dL RDW 14.7 % Platelet 265 10^3/mcL MPV 8.2 fL Neutrophil % 58.6 % Lymphocyte % 30.3 % Monocyte % 8.9 % Eosinophil % 1.9 % Basophil % 0.3 % Neutrophil, Absolute 5.2 10^3/mcL Lymphocyte, Absolute 2.7 10^3/mcL Monocyte, Absolute 0.8 10^3/mcL Eosinophil, Absolute 0.2 10^3/mcL Basophil, Absolute 0.0 10^3/mcL Glucose Level 99 mg/dL Sodium Level 144 mEq/L Potassium Level 4.3 mEq/L Chloride 107 mEq/L CO2 31 mEq/L Electrolyte Balance 6.0 mEq/L BUN 16.0 mg/dL Creatinine Lvl (s) 0.70 mg/dL BUN/Creatinine Ratio 22.9 ratio HI Calcium Lvl 9.4 mg/dL Magnesium Lvl 2.2 mg/dL Total Protein 6.3 G/dL Albumin Level 3.1 G/dL LOW Globulin 3.2 G/dL A/G Ratio 1.0 ratio Bili Total 0.30 mg/dL Alk Phos 79 U/L AST/SGOT 15 U/L ALT/SGPT 18 U/L GFR Non- >60 ml/min/1.73sqm NA GFR >60 ml/min/1.73sqm NA Creatinine Clearance Calc 72.96 mL/min 09/06/2022 4:47 EST BiPAP/CPAP Machine Model Shana V60 09/06/2022 4:06 EST Temperature Oral 36.5 DegC Heart Rate Monitored 53 bpm LOW Respiratory Rate 18 br/min Systolic Blood Pressure Non-Invasive 110 mmHg Diastolic Blood Pressure Non-Invasive 62 mmHg Blood Pressure Method Manual Blood Pressure Location Left arm Blood Pressure Cuff Size Medium Reason For Taking VItal Signs Routine Primary Pain Intensity 0 Pain Scale Type 0-10 Pain scale Monitor Alarms On and Limits Checked Nail Bed Color [place] Capillary Refill < 2 seconds Heart Sounds ICU S1S2 Heart Rhythm Regular Dorsalis Pedis Pulse, Left 1+ Thready Dorsalis Pedis Pulse, Right 1+ Thready Posttibial Pulse, Left 1+ Thready Posttibial Pulse, Right 1+ Thready Radial Pulse, Left 2+ Normal Radial Pulse, Right 2+ Normal Respirations Unlabored Respiratory Pattern Regular Breath Sounds Auscultated Anterior and posterior All Lobes Breath Sounds Clear, Diminished Cough and Deep Breathe Done Cough None Oxygen Therapy Room air Oxygen Saturation 94 % Tracheal Position Midline Abdomen Description Non-distended, Symmetric, Soft Abdomen Palpation Non-Tender, Soft Passing Flatus Yes Swallowing Disorder None Bowel Sounds All Quadrants Present Urinary Elimination Voiding, no difficulties Facial Movement Symmetric resting/crying Skin Symptoms Bruising All Extremity Description [place] Skin Temperature Warm Temperature All Extremities Warm Skin Description [place] Skin Integrity Intact Skin Turgor Non-Elastic Mucous Membrane Color [place] Mucous Membrane Description Moist Antecubital Right 18 gauge Peripheral IV Activity: Assessed Peripheral IV Dressing Condition: Clean, Dry, Intact Peripheral IV Dressing Activity: Transparent dressing Peripheral IV Line Status/Patency: Continuous infusion Peripheral IV Site Condition: No complications Peripheral IV Equipment: IV Pump Neurological Language Able to speak clearly Neurological Symptoms Patient denies Gait Unable to assess Extremity Movement Equal Swallowing Difficulty None Characteristics of Communication Appropriate Characteristics of Speech Clear Facial Symmetry Symmetric Level of Consciousness Alert Aspiration Risk None VIRI Yes Left Pupil Description Regular, Round Right Pupil Description Regular, Round Left Pupil Reaction Brisk Right Pupil Reaction Brisk Pupil Size, Left 3 mm Pupil Size, Right 3 mm Strength All Extremities Moderate Left Upper Extremity Sensation Intact Right Upper Extremity Sensation Intact Left Lower Extremity Sensation Intact Right Lower Extremity Sensation Intact CN V Facial Sensation Light touch equal bilaterally CN VII Facial Expression and Symmetry Facial movement symmetrical CN VIII Hearing Spoken word equally audible left/right CN IX, X Swallowing, Gag Reflex Swallowing present Affect/Behavior Appropriate Orientation Oriented x 4 Orientation Assessment Oriented x 4 Activity Status ADL Sleeping quietly with easy respirations Activity Assistance Supervision Assistive Device None Standard Safety ID band on, Allergy Band on, Call device within reach, Bed in low position, Wheels locked, Upper/Half-Length side-rails up, Phone within reach, personal items within reach, Visitor atbedside High Risk Safety Bathroom light on, Non-Slip footwear, Room check performed Demonstrates Correct Call Light Use Yes Appetite Good Eating Difficulties None 09/06/2022 3:45 EST Respiratory Rate Total 19 br/min Noninvasive FiO2 25 % Noninvasive Tidal Volume, Exhaled 0.373 L Noninvasive Minute Volume 7 L/min Mask/ETT Selection 1 Non Invasive On and Functional Yes BiPAP/CPAP Mode CPAP BiPAP/CPAP Machine Model Shana V60 Estimated Leak 11 L/min Mask/Delivery Type Full face mask Mask Size Large Patient Tolerance BiPAP/CPAP Well Nares Condition on BIPAP/CPAP No breakdown noted Protective Dressing in Place No Expiratory Pressure 10 cmH20 09/06/2022 3:30 EST Cardiac Rhythm Sinus bradycardia, First degree heart block Monitoring Lead III, V1/MCL1 OK Interval 0.22 second(s) QRS Duration 0.09 second(s) QT Interval 0.46 second(s) QTc Interval 0.44 second(s) Alarms On and Functional Yes Heart Rate Alarm Set At - Low 50 Heart Rate Alarm Set At - High 120 09/06/2022 3:17 EST pH 7.403 pCO2 47.2 mm Hg HI pO2 70.1 mm Hg LOW HCO3 28.8 mmol/L CO2 Totl 30.2 mmol/L HI Base Excess 3.3 mmol/L NA O2 Sat 93.8 % Barometric Pressure 711 mm Hg NA 09/06/2022 3:10 EST Oxygen Therapy Room air Blood Gas Drawn From Right Radial Artery Site Held by RT Daniel Test Positive 09/06/2022 2:32 EST magnesium sulfate 4 gram(s) gram(s) Sodium Chloride 0.9% Begin Bag 1,000 mL mL 09/06/2022 2:15 EST WBC 9.3 10^3/mcL RBC 4.66 10^6/mcL Hgb 12.6 G/dL Hct 38.0 % MCV 81.6 fL MCH 27.0 pg MCHC 33.1 G/dL RDW 14.8 % Platelet 281 10^3/mcL MPV 8.0 fL Neutrophil % 66.8 % Lymphocyte % 25.7 % Monocyte % 5.9 % Eosinophil % 1.3 % Basophil % 0.3 % Neutrophil, Absolute 6.2 10^3/mcL Lymphocyte, Absolute 2.4 10^3/mcL Monocyte, Absolute 0.5 10^3/mcL Eosinophil, Absolute 0.1 10^3/mcL Basophil, Absolute 0.0 10^3/mcL Glucose Level 143 mg/dL HI Sodium Level 138 mEq/L Potassium Level 4.3 mEq/L Chloride 105 mEq/L CO2 29 mEq/L Electrolyte Balance 4.0 mEq/L BUN 13.0 mg/dL Creatinine Lvl (s) 0.65 mg/dL BUN/Creatinine Ratio 20.0 ratio Calcium Lvl 9.8 mg/dL Magnesium Lvl 1.6 mg/dL Phosphorus 3.4 mg/dL GFR Non- >60 ml/min/1.73sqm NA GFR >60 ml/min/1.73sqm NA Hgb A1c 5.8 % Cholesterol 130 mg/dL Triglycerides 91 mg/dL HDL Cholesterol 59 mg/dL LDL Cholesterol 53 mg/dL Troponin I High Sensitivity 3.46 ng/L TSH 2.841 mIU/mL Creatinine Clearance Calc 78.57 mL/min 09/06/2022 2:10 EST UA Specimen Type Clean Catch UA Color Yellow UA Appear Clear UA Spec Grav 1.015 UA Glucose Negative mg/dL UA Bili Negative UA Ketones Negative mg/dL UA Blood Negative UA pH 7.0 UA Protein Negative mg/dL UA Urobilinogen 1.0 E.U./dL UA Nitrite Negative UA Leuk Est Small UA RBC Negative /HPF UA WBC 10-20 /HPF UA Squam Epithelial 0-2 /HPF UA Mucous 1+ /HPF UA Bacteria 2+ /HPF UA Hyal Cast 0-2 /LPF 09/06/2022 1:54 EST atorvastatin Not Done: Patient took med at home (Not Done) rivaroxaban Not Done: Patient took med at home (Not Done) 09/06/2022 1:53 EST Notify date/time 09/06/2022 1:53 Provider Notified HTAY, LORELEI NAUNG MD Notification Method Face to face conversation Information Communicated Nurse communication Details Communicated A Reymundo RN Notification Outcome Orders received Person Reporting Result(s) heparin ordered but interacts with xiomara, needs a CPAP order Details of Results Received okay I am going to change my orders, hold all meds for now, keep NPO inmorning, may do gentle IV hydration, will order magnesium Results Read Back Yes 09/06/2022 1:38 EST Post Rehab Outcome Not Done: Not Appropriate at this Time (Not Done) Cardiac Rehab - Phase I Not Done (Not Done) 09/06/2022 1:36 EST heparin Not Done: Not Appropriate at this Time (Not Done) 09/06/2022 1:29 EST IPOC Impaired Gas Exchange Yes 09/06/2022 1:24 EST History and Physical History and Physical (Modified) 09/06/2022 1:19 EST Notify date/time 09/06/2022 1:19 Provider Notified BECCA SALINAS MD Notification Method Pager Information Communicated Nurse communication Details Communicated A Reymundo AVINA Person Reporting Result(s) Pt in 331, transfer from [facility] for bradycardia, admission is done, just need orders, HR in 50s asymptomatic 09/06/2022 1:09 EST Electrocardiogram - EKG - CV Signed 09/06/2022 0:49 EST BMAT Existing Patient Condition/Safety No order for Strict Bedrest BMAT Level 1: Sit and Shake Sit, side bed/reach midline/shake hands BMAT Level 2: Stretch and Point Seated position, straighten 1 knee; Flex ankle & point toes BMAT Level 3: Stand Stand up w/o assist/Use of assist device BMAT Level 4: Walk March in place; step forward & back each foot BMAT Mobility Level 4 09/06/2022 0:48 EST Word Recall Mini-Cog Test 2 words recalled Clock Drawing Mini-Cog Test able to draw clock Mini-Cog Score 4 Pt Condition Appropriate Mini-Cog Test Yes and Served in Active Combat No Confusion During Other Hospitalizations No 09/06/2022 0:37 EST CAM Mental Status Change & Fluctuation No CAM Inattention No CAM Disorganized Thinking No CAM Altered Level of Consciousness No Confusion Assessment Method Score Negative Influenza Vaccine Need Previously immunized this season (Apr-September) Able To Drink Order Detail Yes Able To Sign Consents Order Detail Yes Code Status Order Detail Full code IV Order Detail Yes Dialysis Schedule Order Detail N/A Has Diabetes Order Detail Yes Isolation Precautions Order Detail None Nurse Collect Order Detail 0 Oxygen Order Detail No Order Detail No Prior Valve Replacement Order Detail No Transport Mode Order Detail Bed Nurse and Monitor Influenza Vaccine Assessment Influenza Vaccine Assessment Zoology Technical Officer Details Form Zoology Technical Officer Details Form 09/06/2022 0:36 EST Skin Assessment Verification Admission . Assessment and Plan [place] [employer] (ASA) physical status classification: Class III. Anesthetic Preoperative Plan Premedication: intravenous. Anesthetic technique: MAC. Induction: intravenously. Maintenance airway: Mask. Postoperative pain management: Per surgeon. Risks discussed: nausea, vomiting, headache, sore throat, dental injury, hypotension, allergic reaction, serious complications. Informed consent: signed by patient. Notes: Patient identified, medical record reviewed, medical history reviewed with patient. Assessment performed. Plan prescribed discussed with patient including risks. Inquiries invited and addressed. Consent signed by patient, pt agrees to proceed with sedation for planned procedure, possible GA if not tolerated Of note this is a late entry documentation due to involvement with patient care and inability to document prior to the start of the anesthetic. I reviewed the patient's medical record, completed a preoperative evaluation, performed and assessment, prescribed a plan of anesthesia, and discussed thisplan with the patient prior to the induction of anesthesia. The of this care delivered resulted after the anesthesia start time.. Digitally Signed by TAMIKO SHAFFER MD on 09/07/2022 01:07 PM [facility] 03-06-2023 Cardiology Consult note Date of Service September 06, 2022 Shared/Split visit with Dr. Morfin Reason for Consultation Bradycardia Referring Physician General cardiology History of Present Illness This is a 66-year-old female with a history of paroxysmal atrial fibrillation with a [id number] of 3 status post ablation at [facility] in 2018. EP has been consulted for further evaluation of bradycardia. At this time we recommend discontinuation of flecainide and sertraline to continue to monitor overall heart rate for the next 24 to 48 hours. Continue to monitor QTc. Past medical history significant for 1. Sick sinus syndrome 2. Diastolic hypotension 3. Syncope (combination of bradycardia and diastolic hypotension) 4. QT prolongation (490 ms) while on flecainide and sertraline 5. Paroxysmal AF with a [id number] of 3 status post AF ablation 2017, direct- current cardioversion 2021 6. Obstructive sleep apnea on CPAP 7. Diabetes 8. Morbid obesity 9. Comorbidities also include depression and hypocoagulable state while on Xarelto. Echocardiogram completed but not read. EKG demonstrating sinus bradycardia at a heart rate of 50 bpm. EKG on arrival demonstrated junctional bradycardia at a heart rate of 38 bpm. Similar to an EKG completed at [facility] on August 05, 2022 demonstrating junctional bradycardiaat a heart rate of 40 bpm Today, the patient is sitting comfortably in bed no acute distress. She is currently eating her dinner. We did answer all questions regarding possible pacemaker to happen tomorrow. Patient is understanding agreeable to move forward with procedure. This will allow us to then adequately rate controlled the patient for A-fib. To avoid tachybradycardia syndrome. On interview the patient notes tiredness, fatigue but denies any chest pain, lightheadedness dizziness or syncopal episodes. Review of Systems Pertinent positives per HPI all other systems reviewed and negative. Physical Exam Vitals and Measurements T: 36.4 C (Oral) TMIN: 36.4 C (Oral) TMAX: 36.9 C (Oral) HR: 52(Monitored) RR: 18 BP: 108/62 SpO2: 94% HT: 167.6 cm WT: 125.0 kg BMI: 44.5 Weight Dosing Weight: 125 kg (09/05/22) General - 66 yr old female appearing stated age HEENT - head normocephalic, atraumatic. Pupils equal reactive to light. Nose patent bilaterally. Oropharynx without erythema or exudate. Neck -supple, full range of motion. No carotid bruits noted. Cardiovascular - Regular rate and rhythm. No significant murmurs appreciated. Lungs - clear to auscultation bilaterally. Abdomen - soft, nontender. Bowel sounds present in all 4 quadrants. Musculoskeletal -full weightbearing. Full range of motion in all extremities. Skin -intact, no lesions or rashes noted. Neurological - cranial nerves grossly intact. Mood and affect appropriate to situation. Peripheral vascular - No pitting edema Lab Results 09/06 10:18 Protime: 12.9 PT International Ratio: 1.1 09/06 05:02 WBC: 8.8 Hgb: 11.7 L Hct: 35.7 Platelet: 265 Neutrophil %: 58.6 Glucose Level: 99 Sodium Level: 144 Potassium Level: 4.3 BUN: 16.0 Creatinine Lvl (s): 0.70 03/06 02:15 WBC: 9.3 Hgb: 12.6 Hct: 38.0 Platelet: 281 Neutrophil %: 66.8 Glucose Level: 143 H Sodium Level: 138 Potassium Level: 4.3 BUN: 13.0 Creatinine Lvl (s): 0.65 Assessment/Plan 1. Sick sinus syndrome Patient still remains mildly bradycardic despite washing out current medical therapies. To avoid tachybradycardia syndrome move forward with permanent pacemaker 2. Diastolic hypotension Continue on IV gentle hydration 3. Syncope (combination of bradycardia and diastolic hypotension) Continue to monitor overall blood pressure 4. QT prolongation (490 ms) while on flecainide and sertraline Continue washout. Continue to monitor telemetry and EKGs. Do not recommend stronger antiarrhythmic at this time. 5. Paroxysmal AF with a [id number] of 3 status post AF ablation 2017, direct- current cardioversion 2021 Noted. Continue to monitor. Status post pacemaker we will move forward with antiarrhythmic support if necessary. Problem List/Past Medical History Ongoing No qualifying data Historical No qualifying data Procedure/Surgical History Ablation Cardioversion Medications Inpatient atorvastatin, 10 mg= 1 tab(s), Oral, qDay Cefuroxime Inj (Zinacef) DOPamine for IV 400 mg [5 mcg/kg/min] + Dextrose Premix titrate 250 [place] [address] unit(s) [8 unit(s)/kg/hr] + Dextrose 5% Premix Diluent 250 mL Heparin HBW CARDIAC Bolus 5000 units/mL, 4000 unit(s)= 0.8 mL, 60 unit(s)/kg, IV Push, q6h, PRN HumaLOG 100 units/mL subcutaneous solution, Give 0-10 units/dose, Subcutaneous, TIDAC melatonin, 3 mg= 1 tab(s), Oral, qHS, PRN NS 1,000 mL, 1000 mL, Intravenous NS 1,000 mL, 1000 mL, Intravenous sertraline, 50 mg= 1 tab(s), Oral, qDay Home atorvastatin 10 mg oral tablet, 10 mg= 1 tab(s), Oral, qDay Calcium 600+D oral tablet, 1 tab(s), Oral, qDay flecainide 100 mg oral tablet, 100 mg= 1 tab(s), Oral, q12h metFORMIN 1000 mg oral tablet (IR), 1000 mg= 1 tab(s), Oral, BID metoprolol tartrate 50 mg oral tablet, 50 mg= 1 tab(s), Oral, BID Multivitamin, 1 tab(s), Oral, Daily sertraline 50 mg oral tablet, 50 mg= 1 tab(s), Oral, qDay Vitamin C 25 mg oral tablet, chewable, 25 mg= 1 tab(s), Chewed, qDay Vitamin D3, 25 mcg= 1 tab(s), Oral, q12h Xarelto, 20 mg, Oral, qPM Allergies Neosporin bacitracin (Cephalexin, Polymyxins) cephalexin neomycin Social History Alcohol Use: Current. Frequency: 1-2 times per year., 09/05/2022 Immunizations No qualifying data available. 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 Garcia ( [place]) Patient is a 66-year-old female with past medical history of paroxysmal A Fib (s/p ablation atrial fibrillation 3 to 5 years ago in [place], not [facility] or , 2-3 times of cardioversion, thelast one around Apr 2022) on Xarelto, flecainide and metoprolol, diabetes mellitus, obesity, YOHAN on CPAP at night, and depression went to [facility] this evening with presyncope, dizziness andlightheadedness. Patient was using the restroom when she initially experienced dizziness and lightheadedness resulted in presyncope. Lasted about 10 seconds. Patient's never actually lost consciousness nor fell. After spontaneous recovery, there was repeat episode about 20 minutes later. Patient was in the bedroom at that time and that episode lasted about another 10 seconds. At that time, patient decided to go to [place] [facility]. Patient was given IV hydration at [place] and transferred to [facility] for further management. On arrival to [place], patient was asymptomatic. She denied chest pain, palpitation, dyspnea, orthopnea, lightheadedness. Patient also denied recent nausea, vomiting, diarrhea, fever, chills, respiratory and urinary symptoms. She takes her medication regularly. Her last cardioversion was in April2022. Since then, patient remained asymptomatic and A-fib has been under control. However, she had similar episode about 1 month ago. At that time, patient was found to have hyponatremia. Patient gotbetter with correction of electrolytes and planned to follow-up with photogrammetric compilation specialist. On arrival to [facility], patient was afebrile, heart rate 50 60 /min sinus rhythm, blood pressure 102/54, saturating 95% on room air. CBC and BMP was unremarkable except for elevated bicarb at33. Magnesium level was 1.6. EKG was in sinus rhythm, rate 60/min. Troponin was negative proBNP [id number]. No recent echocardiogram, cardiac catheterization or stress test result was found in the system. Review of Systems Constitutional: denies Fevers and chills , no loss of appetite, denies fatigue or weight change Eyes: Denies double vision/blurring of vision/flashes or floaters Ears, Nose, Mouth & Throat: Denies any tinnitus/hearing loss/sinus congestion/nasal discharge/sore throat Gastrointestinal: Denies any abdominal pain/nausea/vomiting/diarrhea/hematochezia/hematemesis/melena Genitourinary: Denies any dysuria/hematuria Musculoskeletal: denies joint pain or joint swelling or deformities Skin: No ulcers or rash Neurological: denies Weakness or numbness of extremities/facial droop/loss of balance Endocrine: Denies any heat or cold intolerance/polyuria/polydipsia/polyphagia Hematologic/Lymphatic: denies lymphadenopathy Allergic/Immunologic: Denies any seasonal allergy/sneezing/tearing from the eyes Physical Exam Vitals and Measurements T: 36.9 C (Oral) HR: 50(Monitored) RR: 16 BP: 102/54 SpO2: 95% HT: 167.6 cm WT: 125.0 kg BMI: 44.5 Weight Dosing Weight: 125 kg (09/05/22) General Appearance: Patient comfortably lying on bed, not in acute distress Head: Normocephalic, atraumatic EENT: PERRLA, Neck: Supple, no JVD, no mass Cardiac: s1s2,RRR, no murmurs or rubs or gallops Lungs: Clear to auscultation bilaterally, no wheeze or rhonchi or crackles Abdomen: Soft , Nontender, no organomegaly, bowel sounds heard Musculoskeletal: Full ROM , no gross deformities Extremities: No rash or ulcers or pedal edema Neurological: Alert, oriented x 3, grossly no focal neurological deficits Skin: No rash or ulcers Psychiatric: Normal mood and affect Lab Results No 36 Hour Lab Data Assessment/Plan Symptomatic bradycardia Hypomagnesemia Elevated HCO3 likely due to Chronic respiratory acidosis due to YOHAN History of paroxysmal atrial fibrillation (CHAD2 VASc2 score - 3, HAS BLED - 2) Morbid Obesity (BMI 45) YOHAN on CPAP Diabetes mellitus Depression DVT prophylaxis Full CODE STATUS Etiology of symptomatic bradycardia could be multifactorial, medication side effect, possible underlying cardiomyopathy and electrolyte imbalance. At [place], patient was in junctional rhythm with arate around 45/min. Currently, patient is in sinus rhythm, rate 55-60/min. We will correct electrolyte imbalance, target magnesium 2, potassium 4. We will hold off metoprolol and flecainide. Keep the patient n.p.o. and monitor the heart rhythm and symptoms. Gentle hydration with NS @ 75/hr. We will get echocardiogram in the morning. Troponin x 1. EP consult in the morning. TSH, hemoglobin A1c and lipid profile for risk stratification. Initial lab work revealed elevated bicarb at 33. Renal function was normal. Patient denied recent nausea or vomiting. Elevated bicarb could be secondary to chronic respiratory acidosis secondary to YOHAN. We will get an ABG to assess the acid-base status. History of paroxysmal atrial fibrillation, continue Xarelto for anticoagulation. We will hold off beta-vaishali and flecainide overnight and will review in the morning. Continue home setting of CPAP. Resume home dose sertraline for depression. DVT prophylaxis - currently on Xeralto. Patient is full CODE. Problem List/Past Medical History paroxysmal A Fib (s/p ablation atrial fibrillation 3 to 5 years ago in [place], not [facility] or , 2-3 times of cardioversion, the last one around Apr 2022) on Xarelto, flecainide and metoprolol, diabetes mellitus, obesity, YOHAN on CPAP at night, and depression Procedure/Surgical History Ablation Cardioversion Medications Home Medications (10) Active atorvastatin 10 mg oral tablet 10 mg = 1 tab(s), Oral, qDay Calcium 600+D oral tablet 1 tab(s), Oral, qDay flecainide 100 mg oral tablet 100 mg = 1 tab(s), Oral, q12h metFORMIN 1000 mg oral tablet (IR) 1,000 mg = 1 tab(s), Oral, BID metoprolol tartrate 50 mg oral tablet 50 mg = 1 tab(s), Oral, BID Multivitamin 1 tab(s), Oral, Daily sertraline 50 mg oral tablet 50 mg = 1 tab(s), Oral, qDay Vitamin C 25 mg oral tablet, chewable 25 mg = 1 tab(s), Chewed, qDay Vitamin D3 25 mcg = 1 tab(s), Oral, q12h Xarelto 20 mg, Oral, qPM Allergies Neosporin bacitracin (Cephalexin, Polymyxins) cephalexin neomycin Social History Alcohol Use: Current. Frequency: 1-2 times per year., 09/05/2022 Patient denies smoking and substance abuse. Social drinking very occasionally 1-2 times per year. 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 Currently lives with her . Immunizations No qualifying data available. Code Status No qualifying data available. Digitally Signed by LORELEI DURAN MD on 09/06/2022 02:20 AM Digitally Signed by LORELEI DURAN MD on 09/06/2022 02:30 AM [facility] [id number] Cardiology Progress note Date of Service 09/06/2022 Subjective Patient was seen and examined at bedside today. Patient stated that he started feeling dizzy yesterday while he was in the bathroom and passed out for few seconds before regaining consciousness. She noted her heart rate has gone down into the 30s while she was at home. Currently heart rate is in the 50s. EP consulted. Objective Vitals and Measurements T: 36.5 C (Oral) TMIN: 36.5 C (Oral) TMAX: 36.9 C (Oral) HR: 51(Monitored) RR: 18 BP: 134/55 SpO2: 96% HT: 167.6 cm WT: 125.0 kg BMI: 44.5 Intake and Output 7AM Yesterday to 7AM Today Intake and Output (Last 24 hours) Intake Oral Intake 500.00 Output Urine Voided 200.00 Total Summary Total Intake 500.00 Total Output 200.00 Fluid Balance 300.00 Physical Exam General Appearance: Patient comfortably lying on bed, not in acute distress Head: Normocephalic, atraumatic EENT: PERRLA, Neck: Supple, no JVD, Cardiac: s1s2,RRR, no murmurs or rubs or gallops Lungs: Clear to auscultation bilaterally, no wheeze or rhonchi or crackles Abdomen: Soft , Nontender, no organomegaly, bowel sounds heard Musculoskeletal: Full ROM , no gross deformities Extremities: No rash or ulcers or pedal edema Weight Dosing Weight: 125 kg (09/05/22) Medications Medications (8) Active Scheduled: (3) atorvastatin 10 mg tablet 10 mg 1 tab(s), Oral, qDay insulin lispro 100 units/mL Soln (3 mL) Give 0-10 units/dose, Subcutaneous, TIDAC sertraline 50 mg tablet 50 mg 1 tab(s), Oral, qDay Continuous: (3) DOPamine 400 mg/250 mL (premixed bag) 400 mg [5 mcg/kg/min] + Dextrose 5% Premix Diluent 250 mL 250mL, Intravenous, 23.44 mL/hr heparin 25,000 unit(s) [8 unit(s)/kg/hr] + Dextrose 5% Premix Diluent 250 mL 250 mL, Intravenous, 10 mL/hr NS (0.9% nacl) 1,000 mL 1,000 mL, Intravenous, 50 mL/hr PRN: (2) heparin 5,000 units/mL (1 mL) vial 4,000 unit(s) 0.8 mL, IV Push, q6h melatonin 3 mg tablet 3 mg 1 tab(s), Oral, qHS Lab Results 09/06 05:02 WBC: 8.8 Hgb: 11.7 L Hct: 35.7 Platelet: 265 Neutrophil %: 58.6 Glucose Level: 99 Sodium Level: 144 Potassium Level: 4.3 BUN: 16.0 Creatinine Lvl (s): 0.70 09/06 02:15 WBC: 9.3 Hgb: 12.6 Hct: 38.0 Platelet: 281 Neutrophil %: 66.8 Glucose Level: 143 H Sodium Level: 138 Potassium Level: 4.3 BUN: 13.0 Creatinine Lvl (s): 0.65 EKG Electrocardiogram (EKG) - InProcess -- 09/06/22 0:48:00 EST Electrocardiogram (EKG) - InProcess -- 09/06/22 5:53:00 EST Assessment/Plan Symptomatic bradycardia Hypomagnesemia Elevated HCO3 likely due to Chronic respiratory acidosis due to YOHAN History of paroxysmal atrial fibrillation (CHAD2 VASc2 score - 3, HAS BLED - 2) Morbid Obesity (BMI 45) YOHAN on CPAP Diabetes mellitus Depression DVT prophylaxis Full CODE STATUS Etiology of symptomatic bradycardia could be multifactorial, medication side effect, possible underlying cardiomyopathy and electrolyte imbalance. At [place], patient was in junctional rhythm with arate around 45/min. Patient initially started on dopamine however and chest pressure and blood pressure elevation to 170s therefore it was discontinued. Patient is currently denying any lightheadedness or shortness of breath. Currently, patient is in sinus rhythm, rate 55-60/min. Hypomagnesemia was corrected on admission We will hold off metoprolol and flecainide. Continue gentle hydration with normal saline at 50 cc/h. Speaker Mounter consulted pending recommendations Follow-up echocardiogram results Troponin was 3.46, proBNP was 153. Lipid profile was within normal limits showing cholesterol 130, triglycerides 91, HDL 59, LDL 53,TSH 2.84, A1c 5.8 Initial lab work revealed elevated bicarb at 33. Renal function was normal. Patient denied recent nausea or vomiting. Elevated bicarb could be secondary to chronic respiratory acidosis secondary to YOHAN. Repeat bicarb is 31, ABGs this morning showed pH 7.403, PCO2 47, PO2 70, bicarb 28.8 History of paroxysmal atrial fibrillation, continue Xarelto for anticoagulation. We will continue to hold of metoprolol and flecainide. Patient started on heparin by weight Continue home setting of CPAP. Resume home dose sertraline for depression. DVT prophylaxis -heparin by weight Patient is full CODE. Digitally Signed by ABHISHEK ANNE MD on 09/06/2022 10:42 AM [facility] [id number] Evaluation + Plan noteExtracted from: Title:History and Physical Author:LORELEI DURAN MD Date:09/06/22 Symptomatic bradycardia Hypomagnesemia Elevated HCO3 likely due to Chronic respiratory acidosis due to YOHAN History of paroxysmal atrial fibrillation (CHAD2 VASc2 score - 3, HAS BLED - 2) Morbid Obesity (BMI 45) YOHAN on CPAP Diabetes mellitus Depression DVT prophylaxis Full CODE STATUS Etiology of symptomatic bradycardia could be multifactorial, medication side effect, possible underlying cardiomyopathy and electrolyte imbalance. At [place], patient was in junctional rhythm with a rate around 45/min. Currently, patient is in sinus rhythm, rate 55-60/min. We will correct electrolyte imbalance, target magnesium 2, potassium 4. We will hold off metoprolol and flecainide. Keep the patient n.p.o. and monitor the heart rhythm and symptoms. Gentle hydration with NS @ 75/hr. We will get echocardiogram in the morning. Troponin x 1. EP consult in the morning. TSH, hemoglobin A1c and lipid profile for risk stratification. Initial lab work revealed elevated bicarb at 33. Renal function was normal. Patient denied recent nausea or vomiting. Elevated bicarb could be secondary to chronic respiratory acidosis secondary to YOHAN. We will get an ABG to assess the acid-base status. History of paroxysmal atrial fibrillation, continue Xarelto for anticoagulation. We will hold off beta-vaishali and flecainide overnight and will review in the morning. Continue home setting of CPAP. Resume home dose sertraline for depression. DVT prophylaxis - currently on Xeralto. Patient is full CODE. Addendum by ALEXANDRA CRUZ on September 06, 2022 15:40:46 EST I have personally seen, examined, and evaluated the patient on the encounter date. I have reviewed the resident's documentation and agree with the resident's findings and plan as documented, unless otherwise stated. Future Appointments Appointment Date:09/21/2022 02:30:00 PM Scheduled Provider: Location:[facility] Appointment Type:CV OV Incision Check Appointment Date:12/14/2022 11:30:00 AM Scheduled Provider: Location:[facility] Appointment Type:CV Office Procedure ICD Appointment Date:03/17/2023 08:15:00 AM Scheduled Provider: Location:[facility] Appointment Type:CV Remote Procedure [facility] 03-06-2023 Note EP BRIEF NOTERe: bradycardia. PCP: Rian Romero CV: Radha / Donal Patient: Guadalupe Davis medical record# [id number] IMPRESSION: 1. Sick Sinus Syndrome, micha 38 bpm by ECG. Contributing factors. YOHAN, obesity lung syndrome with respiratory acidosis, metoprolol, flecainide. 2. Diastolic hypotension. 3. Syncope. Suspect due to combination of bradycardia and diastolic hypotension. 4. QT prolongation (490ms) on Flecainide/sertraline. 5. Paroxysmal Atrial Fibrillation, CHADSVASC= 3, hx AF ablation [2017 [place]] and DCC [04/2022]. 6. Obstructive sleep apnea on cpap. 7. Diabetes. 8. Depression. 9. Morbid Obesity (bmi 44.5). 10. Hypocoagulable state (xarelto). RECOMMENDATIONS: 1. Agree with discontinuation of flecainide and metoprolol. Heart rate should improve over 24-48 hours. Will take several days for QT to shorten. 2. Do not know if alternative antiarrhythmic agent possible given her QT prolongation and apparent need for antidepressant medication. 3. Need to consider pacemaker to allow needed rate control meds. Thanks. Rhett Morfin MD, [facility], [facility] pager [phone] Digitally Signed by RHETT MORFIN MD on 09/06/2022 11:39 AM [facility] [id number] Cardiology Progress note Date of Service 09/06/2022 Subjective Patient was seen and examined at bedside today. Patient stated that he started feeling dizzy yesterday while he was in the bathroom and passed out for few seconds before regaining consciousness. She noted her heart rate has gone down into the 30s while she was at home. Currently heart rate is in the 50s. EP consulted. Objective Vitals and Measurements T: 36.5 C (Oral) TMIN: 36.5 C (Oral) TMAX: 36.9 C (Oral) HR: 51(Monitored) RR: 18 BP: 134/55 SpO2: 96% HT: 167.6 cm WT: 125.0 kg BMI: 44.5 Intake and Output 7AM Yesterday to 7AM Today Intake and Output (Last 24 hours) Intake Oral Intake 500.00 Output Urine Voided 200.00 Total Summary Total Intake 500.00 Total Output 200.00 Fluid Balance 300.00 Physical Exam General Appearance: Patient comfortably lying on bed, not in acute distress Head: Normocephalic, atraumatic EENT: PERRLA, Neck: Supple, no JVD, Cardiac: s1s2,RRR, no murmurs or rubs or gallops Lungs: Clear to auscultation bilaterally, no wheeze or rhonchi or crackles Abdomen: Soft , Nontender, no organomegaly, bowel sounds heard Musculoskeletal: Full ROM , no gross deformities Extremities: No rash or ulcers or pedal edema Weight Dosing Weight: 125 kg (09/05/22) Medications Medications (8) Active Scheduled: (3) atorvastatin 10 mg tablet 10 mg 1 tab(s), Oral, qDay insulin lispro 100 units/mL Soln (3 mL) Give 0-10 units/dose, Subcutaneous, TIDAC sertraline 50 mg tablet 50 mg 1 tab(s), Oral, qDay Continuous: (3) DOPamine 400 mg/250 mL (premixed bag) 400 mg [5 mcg/kg/min] + Dextrose 5% Premix Diluent 250 mL 250mL, Intravenous, 23.44 mL/hr heparin 25,000 unit(s) [8 unit(s)/kg/hr] + Dextrose 5% Premix Diluent 250 mL 250 mL, Intravenous, 10 mL/hr NS (0.9% nacl) 1,000 mL 1,000 mL, Intravenous, 50 mL/hr PRN: (2) heparin 5,000 units/mL (1 mL) vial 4,000 unit(s) 0.8 mL, IV Push, q6h melatonin 3 mg tablet 3 mg 1 tab(s), Oral, qHS Lab Results 09/06 05:02 WBC: 8.8 Hgb: 11.7 L Hct: 35.7 Platelet: 265 Neutrophil %: 58.6 Glucose Level: 99 Sodium Level: 144 Potassium Level: 4.3 BUN: 16.0 Creatinine Lvl (s): 0.70 09/06 02:15 WBC: 9.3 Hgb: 12.6 Hct: 38.0 Platelet: 281 Neutrophil %: 66.8 Glucose Level: 143 H Sodium Level: 138 Potassium Level: 4.3 BUN: 13.0 Creatinine Lvl (s): 0.65 EKG Electrocardiogram (EKG) - InProcess -- 09/06/22 0:48:00 EST Electrocardiogram (EKG) - InProcess -- 09/06/22 5:53:00 EST Assessment/Plan Symptomatic bradycardia Hypomagnesemia Elevated HCO3 likely due to Chronic respiratory acidosis due to YOHAN History of paroxysmal atrial fibrillation (CHAD2 VASc2 score - 3, HAS BLED - 2) Morbid Obesity (BMI 45) YOHAN on CPAP Diabetes mellitus Depression DVT prophylaxis Full CODE STATUS Etiology of symptomatic bradycardia could be multifactorial, medication side effect, possible underlying cardiomyopathy and electrolyte imbalance. At [place], patient was in junctional rhythm with arate around 45/min. Patient initially started on dopamine however and chest pressure and blood pressure elevation to 170s therefore it was discontinued. Patient is currently denying any lightheadedness or shortness of breath. Currently, patient is in sinus rhythm, rate 55-60/min. Hypomagnesemia was corrected on admission We will hold off metoprolol and flecainide. Continue gentle hydration with normal saline at 50 cc/h. Speaker Mounter consulted pending recommendations Follow-up echocardiogram results Troponin was 3.46, proBNP was 153. Lipid profile was within normal limits showing cholesterol 130, triglycerides 91, HDL 59, LDL 53,TSH 2.84, A1c 5.8 Initial lab work revealed elevated bicarb at 33. Renal function was normal. Patient denied recent nausea or vomiting. Elevated bicarb could be secondary to chronic respiratory acidosis secondary to YOHAN. Repeat bicarb is 31, ABGs this morning showed pH 7.403, PCO2 47, PO2 70, bicarb 28.8 History of paroxysmal atrial fibrillation, continue Xarelto for anticoagulation. We will continue to hold of metoprolol and flecainide. Patient started on heparin by weight Continue home setting of CPAP. Resume home dose sertraline for depression. DVT prophylaxis -heparin by weight Patient is full CODE. 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 Patient was using the restroom when she initially experienced dizziness and lightheadedness resulted in presyncope. Lasted about 10 seconds. Patient's never actually lost consciousness nor fell. After spontaneous recovery, there was repeat episode about 20 minutes later. Patient was in the bedroom at that time and that episode lasted about another 10 seconds. At that time, patient decided to go to [place] ER. Patient was given IV hydration at [place] and transferred to [facility] for further management. On arrival to [place], patient was asymptomatic. She denied chest pain, palpitation, dyspnea, orthopnea, lightheadedness. Patient also denied recent nausea, vomiting, diarrhea, fever, chills, respiratory and urinary symptoms. She takes her medication regularly. Her last cardioversion was in April2022. Since then, patient remained asymptomatic and A-fib has been under control. However, she had similar episode about 1 month ago. At that time, patient was found to have hyponatremia. Patient gotbetter with correction of electrolytes and planned to follow-up with photogrammetric compilation specialist. On arrival to [facility], patient was afebrile, heart rate 50 60 /min sinus rhythm, blood pressure 102/54, saturating 95% on room air. CBC and BMP was unremarkable except for elevated bicarb at33. Magnesium level was 1.6. EKG was in sinus rhythm, rate 60/min. Troponin was negative proBNP [id number]. No recent echocardiogram, cardiac catheterization or stress test result was found in the system. Review of Systems Constitutional: denies Fevers and chills , no loss of appetite, denies fatigue or weight change Eyes: Denies double vision/blurring of vision/flashes or floaters Ears, Nose, Mouth & Throat: Denies any tinnitus/hearing loss/sinus congestion/nasal discharge/sore throat Gastrointestinal: Denies any abdominal pain/nausea/vomiting/diarrhea/hematochezia/hematemesis/melena Genitourinary: Denies any dysuria/hematuria Musculoskeletal: denies joint pain or joint swelling or deformities Skin: No ulcers or rash Neurological: denies Weakness or numbness of extremities/facial droop/loss of balance Endocrine: Denies any heat or cold intolerance/polyuria/polydipsia/polyphagia Hematologic/Lymphatic: denies lymphadenopathy Allergic/Immunologic: Denies any seasonal allergy/sneezing/tearing from the eyes Physical Exam Vitals and Measurements T: 36.9 C (Oral) HR: 50(Monitored) RR: 16 BP: 102/54 SpO2: 95% HT: 167.6 cm WT: 125.0 kg BMI: 44.5 Weight Dosing Weight: 125 kg (09/05/22) General Appearance: Patient comfortably lying on bed, not in acute distress Head: Normocephalic, atraumatic EENT: PERRLA, Neck: Supple, no JVD, no mass Cardiac: s1s2,RRR, no murmurs or rubs or gallops Lungs: Clear to auscultation bilaterally, no wheeze or rhonchi or crackles Abdomen: Soft , Nontender, no organomegaly, bowel sounds heard Musculoskeletal: Full ROM , no gross deformities Extremities: No rash or ulcers or pedal edema Neurological: Alert, oriented x 3, grossly no focal neurological deficits Skin: No rash or ulcers Psychiatric: Normal mood and affect Lab Results No 36 Hour Lab Data Assessment/Plan Symptomatic bradycardia Hypomagnesemia Elevated HCO3 likely due to Chronic respiratory acidosis due to YOHAN History of paroxysmal atrial fibrillation (CHAD2 VASc2 score - 3, HAS BLED - 2) Morbid Obesity (BMI 45) YOHAN on CPAP Diabetes mellitus Depression DVT prophylaxis Full CODE STATUS Etiology of symptomatic bradycardia could be multifactorial, medication side effect, possible underlying cardiomyopathy and electrolyte imbalance. At [place], patient was in junctional rhythm with arate around 45/min. Currently, patient is in sinus rhythm, rate 55-60/min. We will correct electrolyte imbalance, target magnesium 2, potassium 4. We will hold off metoprolol and flecainide. Keep the patient n.p.o. and monitor the heart rhythm and symptoms. Gentle hydration with NS @ 75/hr. We will get echocardiogram in the morning. Troponin x 1. EP consult in the morning. TSH, hemoglobin A1c and lipid profile for risk stratification. Initial lab work revealed elevated bicarb at 33. Renal function was normal. Patient denied recent nausea or vomiting. Elevated bicarb could be secondary to chronic respiratory acidosis secondary to YOHAN. We will get an ABG to assess the acid-base status. History of paroxysmal atrial fibrillation, continue Xarelto for anticoagulation. We will hold off beta-vaishali and flecainide overnight and will review in the morning. Continue home setting of CPAP. Resume home dose sertraline for depression. DVT prophylaxis - currently on Xeralto. Patient is full CODE. Problem List/Past Medical History paroxysmal A Fib (s/p ablation atrial fibrillation 3 to 5 years ago in [place], not [facility] or , 2-3 times of cardioversion, the last one around Apr 2022) on Xarelto, flecainide and metoprolol, diabetes mellitus, obesity, YOHAN on CPAP at night, and depression Procedure/Surgical History Ablation Cardioversion Medications Home Medications (10) Active atorvastatin 10 mg oral tablet 10 mg = 1 tab(s), Oral, qDay Calcium 600+D oral tablet 1 tab(s), Oral, qDay flecainide 100 mg oral tablet 100 mg = 1 tab(s), Oral, q12h metFORMIN 1000 mg oral tablet (IR) 1,000 mg = 1 tab(s), Oral, BID metoprolol tartrate 50 mg oral tablet 50 mg = 1 tab(s), Oral, BID Multivitamin 1 tab(s), Oral, Daily sertraline 50 mg oral tablet 50 mg = 1 tab(s), Oral, qDay Vitamin C 25 mg oral tablet, chewable 25 mg = 1 tab(s), Chewed, qDay Vitamin D3 25 mcg = 1 tab(s), Oral, q12h Xarelto 20 mg, Oral, qPM Allergies Neosporin bacitracin (Cephalexin, Polymyxins) cephalexin neomycin Social History Alcohol Use: Current. Frequency: 1-2 times per year., 09/05/2022 Patient denies smoking and substance abuse. Social drinking very occasionally 1-2 times per year. 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 Currently lives with her . Immunizations No qualifying data available. Code Status No qualifying data available. Digitally Signed by LORELEI DURAN MD on 09/06/2022 02:20 AM Digitally Signed by LORELEI DURAN MD on 09/06/2022 02:30 AM [id number] Note ORIGINAL EXAMINATION: ONE XRAY VIEW OF THE CHEST 09/05/2022 8:37 pm COMPARISON: Chest x-ray 08/05/2022 HISTORY: ORDERING SYSTEM PROVIDED HISTORY: Reason for Exam: chest pain FINDINGS: Stable cardiomediastinal silhouette enlargement. No focal consolidation, vascular congestion, pleural effusion or pneumothorax. Osseous structures appear intact. IMPRESSION: Stable cardiomegaly. No acute radiographic abnormality. I have reviewed the resident's preliminary report and agree with findings and impression. Interpreted by: Kenny Gaston Preliminary Report By: Miguelina Ro Electronically signed By Kenny Gaston Dictated Date: 09/05/2022 8:42:32 PM Prelim Date: 09/05/2022 8:43:53 PM Sign Date: 09/05/2022 8:46:26 PM Ordering Provider: CANDICE [facility]03-05-2023 Note ORIGINAL EXAMINATION: ONE XRAY VIEW OF THE CHEST 09/05/2022 8:37 pm COMPARISON: Chest x-ray 08/05/2022 HISTORY: ORDERING SYSTEM PROVIDED HISTORY: Reason for Exam: chest pain FINDINGS: Stable cardiomediastinal silhouette enlargement. No focal consolidation, vascular congestion, pleural effusion or pneumothorax. Osseous structures appear intact. IMPRESSION: Stable cardiomegaly. No acute radiographic abnormality. I have reviewed the resident's preliminary report and agree with findings and impression. Interpreted by: Kenny Gaston Preliminary Report By: Miguelina Ro Electronically signed By Kenny Gaston Dictated Date: 09/05/2022 8:42:32 PM Prelim Date: 09/05/2022 8:43:53 PM Sign Date: 09/05/2022 8:46:26 PM [facility]ing [facility] Discharge instructions Patient Education 08/06/2022 00:06:31 Hyponatremia Hyponatremia Hyponatremia means low sodium levels in the blood. This condition most often occurs after prolongedvomiting or diarrhea, which causes your body to lose too much water and sodium. It can also result from drinking excess amounts of water or the use of diuretics (water pills). Rarely, it can be associated with disorders of your endocrine system, as side effects of illicit drug use (ecstasy), as a complication of some cancers especially small cell lung cancer, or as a complication of renal and liver disease or heart failure. Mild hyponatremia causes no symptoms. It is only discovered with a blood test. As sodium levels in the blood decreases, symptoms begin to appear. This includes weakness, confusion, muscle cramping and seizures. Home care Reduce your daily water intake until the problem is corrected. If you have been taking diuretics, you may be asked to stop taking them for a short time. If you are having symptoms of weakness or confusion, do not drive or operate dangerous machinery until symptoms resolve. If your sodium levels are too low to be managed at home with the above recommendations, you will beasked to go to the hospital to have your sodium replaced through your vein. Follow-up care Follow up with your healthcare provider for a repeat blood test within the next week, or as advised. When to seek medical advice Call your healthcare provider if any of the following occur: Increasing weakness Dizziness Irregular heartbeat, extra beats or very fast heart rate Increasing confusion Fainting or loss of consciousness Seizure [id number] [employer]. [address] [place] [address]. All rights reserved. This information is not intended as a substitute for professional medical care. Always follow yourhealthcare professional's instructions. 08/06/2022 00:06:28 Bradycardia Bradycardia When your heart rate is slow, less than 60 beats per minute, it is called bradycardia. Bradycardia can be normal, caused by medicines, or a sign of a disease. The slow heart rate may not be constant;it can come and go. It is a concern when it is very low, or you have symptoms. Signs and symptoms The following are signs and symptoms of bradycardia: Heart rate less than 60 per minute Dizziness or feeling lightheaded Weakness Trouble breathing Fainting Sleepiness More trouble exercising than usual because of fatigue Confusion or trouble concentrating Causes There are many causes of bradycardia. Some can be related to your heart, but some may be related toother factors. Uah-hmkdn-[id number] causes: Advanced age Side effect of certain medicines (such as beta-blockers, calcium channel blockers, digitalis, antiarrhythmic medicines like amiodarone, clonidine, lithium) Medical conditions such as hypoglycemia (low blood sugar), hypothyroidism (low thyroid), electrolyte disorder, hypothermia, sleep apnea Athletes, especially long-distance runners, may have a slow heart rate. This can be normal. Sleep apnea Brain injury such as stroke or bleeding inside the brain Heart-related causes: Coronary artery disease (angina or prior heart attack, also known as acute myocardial infarction, or AMI) Heart valve disease Heart muscle disease (cardiomyopathy) Congestive heart failure Sick sinus syndrome, which is when your heart's natural pacemaker is no longer working properly Diseases that infiltrate the heart such as sarcoid Heart infections Sometimes the cause for the arrhythmia cannot be found. Bradycardia that causes symptoms is sometimes reversible, and can be treated with medicines. When more severe bradycardia persists, a pacemaker is generally recommended. When the bradycardia does notcause symptoms, your doctor may decide to evaluate it in his or her office. Home care The following will help you care for yourself at home: Resume your usual activities when you are feeling back to normal. If you develop any of the symptoms below during exertion, then you should not exert yourself until evaluated further by your doctor. Work with your doctor on any needed lifestyle changes, such as changing your diet, stopping smokingif you are a smoker, and a planned exercise program. Follow-up care Follow up with your doctor, or as advised. Call 911 Call 911 if any of the following occur: Chest pain Trouble breathing Slow heart rate with dizziness or lightheadedness Fainting or loss of consciousness Chest, shoulder, arm, neck, or back pain Slow heart rate (under 50 beats per minute) if associated with symptoms When to seek medical advice Call your healthcare provider right away if any of the following occur: Occasional weakness, dizziness, or lightheadedness [phone] [employer]. [address] [place] [address]. All rights reserved. This information is not intended as a substitute for professional medical care. Always follow [facility] professional's instructions. 08/06/2022 00:06:27 Chest Pain, Uncertain Cause Uncertain Causes of Chest Pain Chest pain can happen for a number of reasons. Sometimes the cause can't be determined. If your condition does not seem serious, and your pain does not appear to be coming from your heart, your healthcare provider may recommend watching it closely. Sometimes the signs of a serious problem take moretime to appear. Many problems not related to your heart can cause chest pain. These include: Musculoskeletal. Costochondritis is an inflammation of the tissues around the ribs that can occur from trauma or overuse injuries, or a strain of the muscles of the chest wall Respiratory. Pneumonia, collapsed lung (pneumothorax), or inflammation of the lining of the chest and lungs (pleurisy) Gastrointestinal. Esophageal reflux, heartburn, ulcers, or gallbladder disease Anxiety and panic disorders Nerve compression and inflammation Rare miscellaneous problems such as aortic aneurysm (a swelling of the large artery coming out of the heart) or pulmonary embolism (a blood clot in the lungs) Home care After your visit, follow these recommendations: Rest today and avoid strenuous activity. Take any prescribed medicine as directed. Be aware of any recurrent chest pain and notice any changes Follow-up care Follow up with your healthcare provider if you do not start to feel better within 24 hours, or as advised. Call 911 Call 911 if any of these occur: A change in the type of pain: if it feels different, becomes more severe, lasts longer, or begins to spread into your shoulder, arm, neck, jaw or back Shortness of breath or increased pain with breathing Weakness, dizziness, or fainting Rapid heart beat Crushing sensation in your chest When to seek medical advice Call your healthcare provider right away if any of the following occur: Cough with dark colored sputum (phlegm) or blood Fever of 100.4 F (38 C) or higher, or as directed by your healthcare provider Swelling, pain or redness in one leg [id number] [employer]. [address] [place] [address]. All rights reserved. This information is not intended as a substitute for professional medical care. Always follow yourhealthcare professional's instructions. Follow Up Care 08/05/2022 21:18:18 With:MUKESH GARCIA MD Address: [address] [place] [address]- When:1-2 days Comments:Call in the morning for an appointment [facility] 02-03-2023 Note Discharge Instructions Thank you for allowing [facility] to assist you with your healthcare needs. The following is importantdischarge information regarding your hospital visit. Diagnosis from Today's Visit Chest pain Bradycardia Hyponatremia Chest pain What to Do Next Instructions from Your Care Team No qualifying data available. Post Acute Orders No qualifying data available. You Need to Schedule the Following Appointments Follow Up with MUKESH GARCIA MD When Within 1-2 days Why: Call in the morning for an appointment Where: [address] [place] [id number]- Allergies bacitracin (Cephalexin, Polymyxins) cephalexin neomycin Medications Please ask your primary doctor or pharmacist before taking any other medication not listed, including over the counter drugs, herbal medications, vitamins and or supplements as they may interact withyour home medications. What How Much When Instructions Last Dose Unchanged ascorbic acid (Vitamin C 25 mg oral tablet, chewable) 1 tab(s) Chewed Once a day Unchanged atorvastatin (atorvastatin 10 mg oral tablet) 1 tab(s) by mouth Once a day Unchanged calcium-vitamin D (Calcium 600+D oral tablet) 1 tab(s) by mouth Two (2) times a day Unchanged cholecalciferol (Vitamin D3) 25 Microgram by mouth Every 12 hours Unchanged flecainide (flecainide 100 mg oral tablet) 1 tab(s) by mouth Every 12 hours Unchanged metFORMIN (metFORMIN 1000 mg oral tablet (IR)) 1 tab(s) by mouth Two (2) times a day Unchanged metoprolol (metoprolol tartrate 50 mg oral tablet) 1 tab(s) by mouth Two (2) times a day Unchanged multivitamin (Multivitamin) 1 tab(s) by mouth Every day Unchanged rivaroxaban (Xarelto) 20 Milligram by mouth Once a day (in the evening) Unchanged sertraline (sertraline 50 mg oral tablet) 1 tab(s) by mouth Once a day What How Much When Comments Stop Taking aspirin 81 Milligram by mouth Once a day Stop Taking digoxin 250 Microgram by mouth Once a day Stop Taking sotalol (sotalol 80 mg oral tablet) 1 tab(s) by mouth Two (2) times a day Please take this list to your next doctor s visit. Bring all medications you take, including over the counter medications, herbals and other supplements with you to your doctor s visit. Patients and families are reminded to discard old lists and to update any records with all medication providers or retail pharmacies. Education Materials Hyponatremia Hyponatremia means low sodium levels in the blood. This condition most often occurs after prolongedvomiting or diarrhea, which causes your body to lose too much water and sodium. It can also result from drinking excess amounts of water or the use of diuretics (water pills). Rarely, it can be associated with disorders of your endocrine system, as side effects of illicit drug use (ecstasy), as a complication of some cancers especially small cell lung cancer, or as a complication of renal and liver disease or heart failure. Mild hyponatremia causes no symptoms. It is only discovered with a blood test. As sodium levels in the blood decreases, symptoms begin to appear. This includes weakness, confusion, muscle cramping and seizures. Home care Reduce your daily water intake until the problem is corrected. If you have been taking diuretics, you may be asked to stop taking them for a short time. If you are having symptoms of weakness or confusion, do not drive or operate dangerous machinery until symptoms resolve. If your sodium levels are too low to be managed at home with the above recommendations, you will beasked to go to the hospital to have your sodium replaced through your vein. Follow-up care Follow up with your healthcare provider for a repeat blood test within the next week, or as advised. When to seek medical advice Call your healthcare provider if any of the following occur: Increasing weakness Dizziness Irregular heartbeat, extra beats or very fast heart rate Increasing confusion Fainting or loss of consciousness Seizure [id number] [employer]. [address] [place] [address], [place] [address]. All rights reserved. This information is not intended as a substitute for professional medical care. Always follow yourhealthcare professional's instructions. Bradycardia When your heart rate is slow, less than 60 beats per minute, it is called bradycardia. Bradycardia can be normal, caused by medicines, or a sign of a disease. The slow heart rate may not be constant;it can come and go. It is a concern when it is very low, or you have symptoms. Signs and symptoms The following are signs and symptoms of bradycardia: Heart rate less than 60 per minute Dizziness or feeling lightheaded Weakness Trouble breathing Fainting Sleepiness More trouble exercising than usual because of fatigue Confusion or trouble concentrating Causes There are many causes of bradycardia. Some can be related to your heart, but some may be related toother factors. Hrh-[id number] causes: Advanced age Side effect of certain medicines (such as beta-blockers, calcium channel blockers, digitalis, antiarrhythmic medicines like amiodarone, clonidine, lithium) Medical conditions such as hypoglycemia (low blood sugar), hypothyroidism (low thyroid), electrolyte disorder, hypothermia, sleep apnea Athletes, especially long-distance runners, may have a slow heart rate. This can be normal. Sleep apnea Brain injury such as stroke or bleeding inside the brain Heart-related causes: Coronary artery disease (angina or prior heart attack, also known as acute myocardial infarction, or AMI) Heart valve disease Heart muscle disease (cardiomyopathy) Congestive heart failure Sick sinus syndrome, which is when your heart's natural pacemaker is no longer working properly Diseases that infiltrate the heart such as sarcoid Heart infections Sometimes the cause for the arrhythmia cannot be found. Bradycardia that causes symptoms is sometimes reversible, and can be treated with medicines. When more severe bradycardia persists, a pacemaker is generally recommended. When the bradycardia does notcause symptoms, your doctor may decide to evaluate it in his or her office. Home care The following will help you care for yourself at home: Resume your usual activities when you are feeling back to normal. If you develop any of the symptoms below during exertion, then you should not exert yourself until evaluated further by your doctor. Work with your doctor on any needed lifestyle changes, such as changing your diet, stopping smokingif you are a smoker, and a planned exercise program. Follow-up care Follow up with your doctor, or as advised. Call 911 Call 911 if any of the following occur: Chest pain Trouble breathing Slow heart rate with dizziness or lightheadedness Fainting or loss of consciousness Chest, shoulder, arm, neck, or back pain Slow heart rate (under 50 beats per minute) if associated with symptoms When to seek medical advice Call your healthcare provider right away if any of the following occur: Occasional weakness, dizziness, or lightheadedness [id number] [employer] [place] [address]. All rights reserved. This information is not intended as a substitute for professional medical care. Always follow yourhealthcare professional's instructions. Uncertain Causes of Chest Pain Chest pain can happen for a number of reasons. Sometimes the cause can't be determined. If your condition does not seem serious, and your pain does not appear to be coming from your heart, your healthcare provider may recommend watching it closely. Sometimes the signs of a serious problem take moretime to appear. Many problems not related to your heart can cause chest pain. These include: Musculoskeletal. Costochondritis is an inflammation of the tissues around the ribs that can occur from trauma or overuse injuries, or a strain of the muscles of the chest wall Respiratory. Pneumonia, collapsed lung (pneumothorax), or inflammation of the lining of the chest and lungs (pleurisy) Gastrointestinal. Esophageal reflux, heartburn, ulcers, or gallbladder disease Anxiety and panic disorders Nerve compression and inflammation Rare miscellaneous problems such as aortic aneurysm (a swelling of the large artery coming out of the heart) or pulmonary embolism (a blood clot in the lungs) Home care After your visit, follow these recommendations: Rest today and avoid strenuous activity. Take any prescribed medicine as directed. Be aware of any recurrent chest pain and notice any changes Follow-up care Follow up with your healthcare provider if you do not start to feel better within 24 hours, or as advised. Call 911 Call 911 if any of these occur: A change in the type of pain: if it feels different, becomes more severe, lasts longer, or begins to spread into your shoulder, arm, neck, jaw or back Shortness of breath or increased pain with breathing Weakness, dizziness, or fainting Rapid heart beat Crushing sensation in your chest When to seek medical advice Call your healthcare provider right away if any of the following occur: Cough with dark colored sputum (phlegm) or blood Fever of 100.4 F (38 C) or higher, or as directed by your healthcare provider Swelling, pain or redness in one leg [id number] [employer]. [address] [place] [address]. All rights reserved. This information is not intended as a substitute for professional medical care. Always follow yourhealthcare professional's instructions. Additional Information VACCINATE! IT SAVES LIVES! Members of the community who have not yet received the COVID-19 vaccine and would like to receive it can visit one of [facility] vaccine clinics. There are many vaccine clinic locations within the [facility]. For locations and available times, please visit [email or web address]. It is important to note that some COVID mobile vaccine clinics are held outdoors and may be canceled in rainy orstormy conditions. To learn more about pediatric vaccinations (ages 5-11), we invite you to visit the [facility] webpage. [email or web address] [email or web address] learn more about the COVID-19 vaccine, we invite you to visit the [employer] website for a list of frequently asked questions. [email or web address] _[email or web address]-Questions.pdf [facility] Patient Portal Access Instructions: Stay connected with your healthcare team and access your personal medical information anytime with the [facility] Patient Portal. If you would like a full copy of your medical records please contact the [facility] Medical Records Department Tuesday through Tuesday between 8a.m. and 4:30p.m. Please follow the directions below to access the portal: 1.Access the email account you provided upon registration to the hospital.2.Look for an invitation email from [facility].3.Open the email and access the invitation link: Accept Invitation to [facility]4.Fill in the required mccollum to create your account. Sign into [email or web address] with your username and password that you created in the above steps to stay up to date. You can then view a summary of results, a summary of your visits, and the ability to download your summaries to your computer or send the information securely to a physician. Remember that your healthcare information is confidential, so carefully consider who you will allow to register on the [facility] Patient Portal for access to your information. You can also access the [facility] Patient Portal on the [employer] alex. Simply click on "Health Records" under "HealthData" and then click on the [employer] logo. HOW TO SAFELY DISPOSE OF PRESCRIPTION MEDICATIONS Please use one of the following methods to safely dispose of your unused medications. 1.Use a drug disposal kit: the drug disposal pouch allows you to safely discard your old and unuseddrugs. Ask your nurse to give you one when you are discharged.2.Visit a local take-back location: Many local pharmacies and police departments have programs that collect old and unwanted prescriptiondrugs. Call your local pharmacy or go to http://bit.[employer]/0H2Ci0r to find one close to you.3.Make use of household items: Use cat litter or old coffee grounds to dispose medications if other options arenot available. Mix your drugs with these household products, seal them in an airtight container andthrow it into the garbage. Call [facility]: [phone] to be sure your drugs can be disposed of in this way. Some medicines may require a different approach.4.Never flush your medications down the toilet. IF YOU HAVE BEEN PRESCRIBED AN OPIOIDS FOR PAIN If you have been prescribed an opioid (such as hydrocodone, oxycodone or morphine), it is critical to understand the possible side effects and risks of opioid pain medications. Even when taken as directed, opioids can have several side effects including: Tolerance, meaning you might need to take more of a medication for the same pain relief. Nausea, vomiting and/or constipation. Sleepiness, dizziness, dry mouth, confusion, depression or itching. Physical dependence, meaning you have withdrawal symptoms when a medication is stopped ? this can develop within a few days. KNOW YOUR RESPONSIBILITIES It is important to know exactly how much and how often to take the opioid pain medications you are prescribed. Never take opioids in higher amounts or more often than prescribed. Do not combine opioids with alcohol or other drugs that cause drowsiness, such as benzodiazepines, also known as benzos,including diazepam and alprazolam, muscle relaxants or sleep aids. Never sell or share prescriptionopioids. This is illegal. Store opioids in a secure place and out of reach of others (including children, family, friends and visitors). The last page(s) of this document has been signed and retained as a CHART COPY Signatures Patient Education Materials Hyponatremia Bradycardia Chest Pain, Uncertain Cause Medication Leaflets My discharge plan and instructions have been reviewed and explained to me and IHUSSAIN BELINDA G understand my current condition and have read and understand these discharge instructions. I have received a written copy of the plan/instructions. If I have questions, I am aware that I should contactmy doctor. 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02-02-2023 Note ORIGINAL EXAMINATION: ONE XRAY VIEW OF THE CHEST 08/05/2022 9:57 pm COMPARISON: Chest x-ray 03/01/2017 HISTORY: ORDERING SYSTEM PROVIDED HISTORY: Reason for Exam: chest pain FINDINGS: Stable cardiomediastinal contours. No focal consolidation, vascular congestion, pleural effusion, or pneumothorax. No acute osseous abnormality. Moderate cardiomegaly which is stable. IMPRESSION: No acute radiographic findings. Stable moderate cardiomegaly. I have personally reviewed the images of this examination and agree with the resident's findings and interpretations. Interpreted by: Volodymyr Dyer MD Preliminary Report By: Lilli Henson Electronically signed By Volodymyr Dyer MD Dictated Date: 08/05/2022 9:59:40 PM Prelim Date: 08/05/2022 10:00:34 PM Sign Date: 08/05/2022 10:20:02 PM Ordering Provider: [facility]02-02-2023 Note ORIGINAL EXAMINATION: ONE XRAY VIEW OF THE CHEST 08/05/2022 9:57 pm COMPARISON: Chest x-ray 03/01/2017 HISTORY: ORDERING SYSTEM PROVIDED HISTORY: Reason for Exam: chest pain FINDINGS: Stable cardiomediastinal contours. No focal consolidation, vascular congestion, pleural effusion, or pneumothorax. No acute osseous abnormality. Moderate cardiomegaly which is stable. IMPRESSION: No acute radiographic findings. Stable moderate cardiomegaly. I have personally reviewed the images of this examination and agree with the resident's findings and interpretations. Interpreted by: Volodymyr Dyer MD Preliminary Report By: Lilli Henson Electronically signed By Volodymyr Dyer MD Dictated Date: 08/05/2022 9:59:40 PM Prelim Date: 08/05/2022 10:00:34 PM Sign Date: 08/05/2022 10:20:02 PM Ordering Provider: [facility]10-14-2022 Evaluation note* Diagnosis Onset Date Resolution Status Atrial flutter April 16, 2022 acute Essential (primary) hypertension chronic Hyperlipidemia chronic Paroxysmal atrial fibrillation [facility] Work Phone: [phone]) 232-935510-14-2022 Evaluation note* Diagnosis Onset Date Resolution Status Atrial flutter April 16, 2022 acute S/P placement of cardiac pacemaker acute Essential (primary) hypertension chronic Hyperlipidemia chronic Paroxysmal atrial fibrillation chronic Atrial flutter April 16, 2022 acute S/P placement of cardiac pacemaker acute Sick sinus syndrome acute Paroxysmal atrial fibrillation chronic Atrial flutter April 16, 2022 acute S/P placement of cardiac pacemaker acute Sick sinus syndrome acute Paroxysmal atrial fibrillation chronic [facility] Work Phone: Consult note Author Jarad Ye [facility] Note Date/Time September 17, 2024 12: 34pm [facility] Medical Records Department [address] [place] [address] Pre-Anesthesia Evaluation 09/17/24 1225 MR#: [id number] Acct: [id number] Name: GUADALUPE DAVIS Rep #:[id number] : 1955 69 From: Jarad Ye MD PCP: Dr. Rian Romero MD Status:RE G SDC Y Race: C Location: [place] [address] ASA Classification* ASA Classification ASA Classification: 3 Assessment & Plan Anesthesia* Anesthesia Assessment Anesthesia Assessment: Discussed sedation and/or anesthesia options, risks, benefits, and alternatives with patient/parents/legal guardian/POA. Questions invited. The patient/parents/legal guardian/POA seems to understand and agrees to proceedwith anesthesia plan. Reviewed the physical assessment, medical history, allergy history and patient home medications list prior to surgery/procedure/anesthetic and documented any changes. Performed airway and anesthesia risk assessments. Anesthesia Type Anesthesia Type: MAC History Source History Obtained from:: Patient and Chart Anesthesia Focused Assessment* Temperature: 96.9 F Pulse Rate: 96 Blood Pressure: 160/74 Respiratory Rate: 18 Pulse Ox: 95 Oxygen Delivery Method: Room Air Airway Assessment Mouth opens: 2 cm Mallampati Score: III Teeth Condition: Dentures (Patient has upper full dentures.) and Missing (Patient is edentulous on the bottom.) Neck Range of motion (ROM): Limited ROM (slight decrease in extension) Focused Labs Anesthesia Preop lab: CBC WBC 7.0 K/mm3 (4.4-11.0) 07/06/24 14:59 07/06/24 RBC 4.89 M/mm3 (4.2-5.4) 07/06/24 14:59 07/06/24 Hgb 12.8 g/dL (12.0-15.0) 07/06/24 14:59 07/06/24 Hct 41.3 % (37-47) 07/06/24 14:59 07/06/24 Plt Count 282 K/mm3 (150-450) 07/06/24 14:59 07/06/24 CHEMISTRY Potassium 3.8 mmol/L (3.5-5.1) 07/06/24 14:59 07/06/24 Sodium 140 mmol/L (136-145) 07/06/24 14:59 07/06/24 Magnesium 1.8 mg/dL (1.6-2.6) 07/06/24 14:59 07/06/24 BUN 13 mg/dL (7-18) 07/06/24 14:59 07/06/24 Creatinine 0.74 mg/dL (0.55-1.02) 07/06/24 14:59 07/06/24 Glucose 191 mg/dL (74-106) H 07/06/24 14:59 07/06/24 TSH 2.570 uIU/mL (0.358-3.740) 04/05/24 17:03 1009/24 COAG Pre-Assessment Diagnosis/Proposed Procedure Planned Operative Procedure(s): CAUDAL BLOCK Anesthesia History Anesthesia History - home support worker: Anesthesia History - home support worker Hx Hospitalization No 09/14/24 12:09 Any Problems With Anesthesia [ No 04/16/22 18:23 1 (Initial Baseline)] Any Problems With Anesthesia No 09/14/24 12:09 Cholinesterase deficiency No 09/14/24 12:09 You/Your Family Experience No 09/14/24 12:09 fever (hyperthermia) with Relationship Recent Exposure to Contagious No 09/17/24 12:17 Disease Does patient have nerve No 09/14/24 12:09 stimulator Patient instructed to have device shut off --Does patient have Pacemaker No 09/17/24 12:17 or ICD? When Was Last Pacemaker Check QUESTION #4 FULL TEXT: You/Your Family Experience fever (hyperthermia) with Anesthesia Last Oral Intake Last Oral intake: Last Oral Intake NPO since 23:00 09/17/24 12:17 Meds taken in AM with sips of water? Meds patient instructed to take am of surgery PONV PONV - home support worker: PONV - home support worker Female Yes 09/14/24 12:09 HX of Motion Sickness No 09/14/24 12:09 HX of N/V After Surgery No 09/14/24 12:09 Non-Smoker Yes 09/14/24 12:09 Duration of Surgery greater No 09/14/24 12:09 than 60 minutes Number of Risk Factors 2 09/14/24 12:09 PONV Score Moderate Risk 09/14/24 12:09 Height & Weight Height & Weight: Anesthesia: Height & Weight Height 5 ft 6 in 09/17/24 12:17 Weight: 133.6 kg 09/17/24 12:17 Body Mass Index (BMI) 47.5 09/17/24 12:17 Respiratory Assessment Respiratory Assessment - home support worker: Respiratory Tract Infection Hx - home support worker Hx Respiratory Tract Infection No 09/14/24 12:09 STOP Sleep Apnea STOP Sleep Apnea - home support worker: STOP Sleep Apnea - home support worker Hx Hypertension Yes: CONTROLLED WITH MED 09/14/24 12:09 Hx Sleep Apnea Yes 09/14/24 12:09 CPAP Yes 09/14/24 12:09 BIPAP No 09/14/24 12:09 Do you snore loudly (louder than talking or can be heard Do you often feel tired/ fatigued/ sleepy during daytime? Has anyone observed you stop breathing during sleep? STOP Results Positive 09/14/24 12:09 QUESTION #5 FULL TEXT : Do you snore loudly (louder than talking or can be heard through closed doors)? Tobacco Use History Tobacco Use History - home support worker: Tobacco Use History - home support worker Tobacco Use Smoking Status Former smoker 09/14/24 12:09 Hx Tobacco Use No 09/14/24 12:09 Years Smoking Packs Smoked per Day Smoking Cessation Date was No - quit smoking greater 09/14/24 12:09 within the last 15 years than 15 years ago Hx Smoking Cessation Date 07/04/90 09/14/24 12:09 Hx Smoking Cessation Counseling Hematologic Medial History Hematologic Hx - home support worker: Hematologic Medical Hx - brand designer Hx of Blood Transfusion No 09/14/24 12:09 Hx of Transfusion in last 3 No 09/14/24 12:09 Months Date of Last Transfusion (if within last 3 months) Ever experience any problems No 09/14/24 12:09 with transfusion(s)? Specify any problems Hx of Preganancy in last 3 N/A 09/14/24 12:09 Months Nurse Filling Out Transfusion NBUCHER 09/14/24 12:09 & Questions: Date: 09/14/24 09/14/24 12:09 Time: 12:11 09/14/24 12:09 Patient unable to answer at this time (ie. confused, unrespo /Reproduction History /Reproductive History - home support worker: /Reproductive Hx- home support worker Hx Now No 09/14/24 12:09 Gestational Age (in weeks): EDC: Hx Hx Para Hx Section SAB No 09/14/24 12:09 [facility] Medical History Wears glasses Wears dentures Diabetes Ambulates with cane High cholesterol Restless legs Syncope Difficulty swallowing Dietary restriction CPAP (continuous positive airway pressure) dependence Sleep apnea Former smoker History of edema History of stress test History of echocardiogram Cardiology follow-up encounter Sick sinus syndrome Atrial flutter (04/16/22) Right knee DJD Right knee pain Hyperlipidemia Osteoporosis Vaginal prolapse Arthritis Cervical cancer Type 2 diabetes mellitus Paroxysmal atrial fibrillation Essential (primary) hypertension Obesity Obstructive sleep apnea Knee pain Shoulder pain Home Medications ?Medication ?Instructions ?Recorded ?Last Taken ?Type atorvastatin 10 mg tablet (Lipitor) 10 mg PO QDAY #30 tabs 06/12/19 09/14/24 Rx sertraline 50 mg tablet 50 mg PO DAILY 08/21/2009/01 History calcium 600 mg (as 1 cap PO DAILY 08/20/2109/01 History carbonate)-vitamin D3 5 mcg (200 unit) capsule (Calcium 600 + D(3)) multivitamin 1 tab PO DAILY 08/20/2109/01 History rivaroxaban 20 mg tablet (Xarelto) 20 mg PO DAILY #90 TABLETS 12/01/23 09/14/24 Rx gabapentin 300 mg capsule 600 mg PO TID 05/01/2409/17 History melatonin 5 mg capsule 5 mg PO QHS PRN sleep 09/16/24 History metoprolol succinate 50 mg 50 mg PO DAILY #90 tabs 09/14/24 Rx tablet,extended release 24 hr magnesium 200 mg tablet 200 mg PO DAILY 09/14/24 History Allergy/AdvReac Type Severity Reaction Status Date / Time amoxicillin (From Augmentin) Allergy Unknown UNKNOWN Verified 09/17/24 12:15 clavulanic acid (From Allergy Unknown UNKNOWN Verified 09/17/24 12:15 Augmentin) Penicillins (PCN) Allergy Unknown UNKNOWN Verified 09/17/24 12:15 bacitracin (From Neosporin AdvReac Intermediate yeast Verified 09/17/24 12:15 ([id number])) infection neomycin AdvReac Intermediate yeast Verified 09/17/24 12:15 infection cephalexin AdvReac Mild yeast Verified 09/17/24 12:15 infection Family History Father Diabetes Heart disease Mother Breast cancer CVA (cerebral vascular accident) Kidney disease Surgical History Hx of total knee replacement (~07/2023) S/P placement of cardiac pacemaker History of cardioversion (04/16/22) H/O bilateral salpingo-oophorectomy H/O meniscectomy of right knee History of radiofrequency ablation procedure for cardiac arrhythmia (02/01/17) History of cholecystectomy Hx of hysterectomy History of appendectomy Social History Smoking Status: Former smoker how long ago did patient quit smokin + years ago alcohol intake: current alcohol intake frequency: a few times a month substance use type: does not use caffeine: Yes (Occasionally) Review of Systems (Anesthesia) ROS Narrative System reviewed and no additional complaints, except as documented. 09/17/24 1234 <Electronically signed by Jarad rizo MD> Date _ Jarad Ye MD Cosigner Signature: Date CC: ~ Signed [facility] Work Phone: Consult note Author Evelyn Reid [facility] Note Date/Time September 17, 2024 12: 57pm [facility] Medical Records Department [address] [place] [address] Anesthesia Postop Eval I 09/17/24 1256 MR#: [id number] Acct: [id number] Name: GUADALUPE DAVIS Rep #:[id number] : 1955 69 From: Evelyn Reid CRNA PCP: Dr. Rian Romero MD Status:RE G SD Y Race: C Location: [place] [address] Anesthesia: Postop Eval I Current Vital Signs Temperature: 97.4 F Pulse Rate: 99 Blood Pressure: 148/85 Respiratory Rate: 14 Pulse Ox: 98 Oxygen Delivery Method: Room Air Assessment Airway patent: Yes Spontaneous unlabored respirations: Yes Mental status: Awake nausea: No Vomiting: No Anesthesia Complication: No Fluid Hydration Crystalloid volume administer (ml): 10 Total IV fluid infused: 10 Progress Note Anesthesia document: Postop Eval 1 completed: Yes 09/17/24 1257 <Electronically signed by Evelyn DE LA TORRE NA> Date _ Evelyn Velazquez Signature: Date CC: ~ Signed [facility] Work Phone: Evaluation + Plan note No data available for this section [facility] Evaluation + Plan note Future Appointments Appointment Date:01/20/2023 01:30:00 PM Scheduled Provider: Location:[facility] Appointment Type:NUT Diet Visit Individual [facility] Evaluation + Plan note Future Appointments Appointment Date:02/18/2023 02:30:00 PM Scheduled Provider: Location:[facility] Appointment Type:PT Outpatient Evaluation [facility] Evaluation + Plan note Future Appointments Appointment Date:07/06/2023 03:30:00 PM Scheduled Provider: Location:[facility] Appointment Type:CT Knee w/o Contrast Left Future Scheduled Tests Radiology* CT Knee w/o Contrast Left 07/06/[address] [facility] Evaluation + Plan note Future Appointments [facility] evaluation note* Diagnosis Onset Date Resolution Status Chest pain acute Essential (primary) hypertension chronic Hyperlipidemia chronic Paroxysmal atrial fibrillation chronic [facility] Work Phone: Evaluriiyv note* Diagnosis Onset Date Resolution Status Essential (primary) hypertension chronic Hyperlipidemia chronic Paroxysmal atrial fibrillation chronic Chest pain resolved [facility] Work Phone: evaluation noteNo assessment information available [facility] Work Phone: evaluation note* Diagnosis Onset Date Resolution Status Admit Date S/P placement of cardiac pacemaker acute April 10 2:58pm Sick sinus syndrome acute Octob er 2024 2:58pm Essential (primary) hypertension chronic April 10 2:58pm Hyperlipidemia chronic April 2:58pm Paroxysmal atrial fibrillation chron ic April 10, 2025 2:58pm [facility] Work Phone: Hospital Discharge instructions No data available for this section [facility] Note* CANDICE MCCOY MD: SIGN, VERIFY Event Display: EKG [ED AO] - CV Authored Date: [facility] Progress note No data available for this section [facility] Reason for referral (narrative)No reason for referral [facility] Work Phone: Summary note* SHANIA Banks: PERFORM Event Display: Patient Summary Documents Authored Date: [facility] Summary Purpose Family History Relationship Condition Age at Onset Recorded Date/T mansi father Diabetes mellitus Unknown Cardiac disease Unknown mother Malignant neoplasm of breast Unknown Cerebrovascular accident (CVA) Unknown Kidney disorder Unknown Advance Directives Advance Directive Response Recorded Date/ Time Living Will No November 03, 2016 10 :51am Power of Cognos Bi Developer No November 03, 2016 10:51am Advance Directive Response Recorded Date/ Time Living Will No April 16 4:50pm Power of Cognos Bi Developer No April 16, 2022 4:50pm Advance Directive Response Recorded Date/ Time Living Will No April 16 3:50pm Power of Cognos Bi Developer No April 16, 2022 3:50pm Advance Directive Response Recorded Date/ Time Living Will No April 16 4:50pm Power of Cogn[employer] Developer No April 16, 2022 4:50pm Living Will No September 14, 2024 12:09pm Power of Cognos Bi Developer No September 14 12:09pm Advance Directive Response Recorded Date/ Time Living Will No April 16 4:50pm Do you have a Healthcare Power of Cognos Bi Developer? No April 16, 2022 4:50pm Living Will No September 14, 2024 12:09pm Do you have a Healthcare Power of Cognos Bi Developer? No September 14, 2024 12:09pm Advance Directive Response Recorded Date/ Time Living Will No September 14, 2024 12:09pm Do you have a Healthcare Power of Cognos Bi Developer? No September 14, 2024 12:09pm Chief Complaint and Reason for Visit Chief Complaint 1 Y FU EVAL FOR FLECAINIDE THERAPY EVAL FOR FLECAINIDE THERAPY Reason for Visit Chest pain Essential (primary) hypertension Hyperlipidemia Paroxysmal atrial fibrillation Chief Complaint 3 M FU Reason for Visit Essential (primary) hypertension Hyperlipidemia Paroxysmal atrial fibrillation Chest pain Chief Complaint AFIB Chief Complaint AFIB SCREENING 9 M FU Reason for Visit Atrial flutter Essential (primary) hypertension Hyperlipidemia Paroxysmal atrial fibrillation Chief Complaint AFIB SCREENING 9 M FU ARIAL FIB-FLUTTER Reason for Visit Atrial flutter Essential (primary) hypertension Hyperlipidemia Paroxysmal atrial fibrillation Chief Complaint SCREENING 9 M FU ARIAL FIB-FLUTTER E ORDER Reason for Visit Atrial flutter Essential (primary) hypertension Hyperlipidemia Paroxysmal atrial fibrillation Chief Complaint S/P PERLITA. PPM IMPLAN T (SCANNED) NEW PPM IMPLANT (SCANNED) Remote ALERT for VHR BILATERAL OA KNEE RX HERE DISORDERS OF BONE Reason for Visit Atrial flutter S/P placement of cardiac pacemaker Essential (primary) hypertension Hyperlipidemia Paroxysmal atrial fibrillation Atrial flutter S/P placement of cardiac pacemaker Sick sinus syndrome Paroxysmal atrial fibrillation Atrial flutter S/P placement of cardiac pacemaker Sick sinus syndrome Paroxysmal atrial fibrillation Chief Complaint S/P PERLITA. PPM IMPLAN T (SCANNED) NEW PPM IMPLANT (SCANNED) Remote ALERT for VHR DISORDERS OF BONE BILATERAL OA KNEE RX HERE Reason for Visit Atrial flutter S/P placement of cardiac pacemaker Essential (primary) hypertension Hyperlipidemia Paroxysmal atrial fibrillation Atrial flutter S/P placement of cardiac pacemaker Sick sinus syndrome Paroxysmal atrial fibrillation Atrial flutter S/P placement of cardiac pacemaker Sick sinus syndrome Paroxysmal atrial fibrillation Chief Complaint Pacer Check Remote Chief Complaint Admit Date BLE SWELLING May 24, 2024 12:49pm EORDER-LUMBAR SPINE July 06, 2024 2: 58pm 3-4M FU July 25, 2024 1 :53pm Pacer Check Remote August 01, 2024 4 :34am Pacer Check Remote August 16, 2024 9:00am ANNUAL IN CLINIC/[facility] @ 3:30 August 2:38pm 14 M FU/RUTH @ August 16, 2024 2:39pm Reason for Visit Admit Date Venous insufficiency July 25, 2024 1:53pm S/P placement of cardiac pacemaker u 2024 2:38pm Sick sinus syndrome August 16, 2024 2:38pm S/P placement of cardiac pacemaker u 2024 2:39pm Essential (primary) hypertension ua2024 2:39pm Hyperlipidemia August 16, 2024 2:39pm Paroxysmal atrial fibrillation August 16, 2024 2:39pm Chief Complaint Admit Date EORDER-LUMBAR SPINE July 06, 2024 2: 58pm 3-4M FU July 25, 2024 1 :53pm Pacer Check Remote August 01, 2024 4 :34am Pacer Check Remote August 16, 2024 9:00am ANNUAL IN CLINIC/[facility] @ 3:30 August 2:38pm 14 M FU/RUTH @ 3 August 16, 2024 2:39pm Chief Complaint Admit Date EORDER-LUMBAR SPINE July 06, 2024 2: 58pm 3-4M FU July 25, 2024 1 :53pm Pacer Check Remote August 01, 2024 4 :34am Pacer Check Remote August 16, 2024 9:00am ANNUAL IN CLINIC/[facility] @ 3:30 August 2:38pm 14 M FU/RUTH @ August 16, 2024 2:39pm fell October 23, 2024 4:1 2pm Chief Complaint Admit Date 3-4M FU July 25, 2024 1 :53pm Pacer Check Remote August 01, 2024 4 :34am Pacer Check Remote August 16, 2024 9:00am ANNUAL IN CLINIC/[facility] @ 3:August 2:38pm 14 M FU/RUTH @ August 16, 2024 2:39pm fell October 23, 2024 4:1 2pm Pacer Check Remote October 31, 2024 2:1 7am WEAKNESS RX HERE November 14, 2024 2:30p m Chief Complaint Admit Date fell October 23, 2024 4:1 2pm Pacer Check Remote October 31, 2024 2:1 7am WEAKNESS RX HERE December 14, 2024 3:30 pm Chief Complaint Admit Date fell October 23, 2024 4:1 2pm Pacer Check Remote October 31, 2024 2:1 7am WEAKNESS RX HERE December 14, 2024 3:30 pm Pacer Check Remote February 09, 2025 5:0 3am Chief Complaint Admit Date Pacer Check Remote October 31, 2024 2:1 7am WEAKNESS RX HERE December 14, 2024 3:30 pm Pacer Check Remote February 09, 2025 5:0 3am Chief Complaint Admit Date Pacer Check Remote October 31, 2024 2:1 7am WEAKNESS RX HERE December 14, 2024 3:30 pm Pacer Check Remote February 09, 2025 5:0 3am Pacer Check Remote February 25, 2025 3: 10am Pacer Check Remote February 27, 2025 2: 00am Chief Complaint Admit Date WEAKNESS RX HERE December 14, 2024 3:30 pm Pacer Check Remote February 09, 2025 5:0 3am Pacer Check Remote February 25, 2025 3: 10am Pacer Check Remote February 27, 2025 2: 00am Pacer Check Remote March 01, 2025 5: 12am Chief Complaint Admit Date WEAKNESS RX HERE December 14, 2024 3:30 pm Pacer Check Remote February 09, 2025 5:0 3am Pacer Check Remote February 25, 2025 3: 10am Pacer Check Remote February 27, 2025 2: 00am Pacer Check Remote March 01, 2025 5: 12am cough March 12, 2025 4:16pm SCREENING March 14, 2025 3:33pm Chief Complaint Admit Date WEAKNESS RX HERE December 14, 2024 3:30 pm Pacer Check Remote February 09, 2025 5:0 3am Pacer Check Remote February 25, 2025 3: 10am Pacer Check Remote February 27, 2025 2: 00am Pacer Check Remote March 01, 2025 5: 12am cough March 12, 2025 4:16pm SCREENING March 14, 2025 3:33pm Hypertension April 10, 2025 2: 58pm Reason for Visit Admit Date S/P placement of cardiac pacemaker Octob er 2024 2:58pm Sick sinus syndrome April 10, 2025 2: 58pm Essential (primary) hypertension April 10, 2025 2:58pm Hyperlipidemia April 10, 2025 2: 58pm Paroxysmal atrial fibrillation April 102024 2:58pm Chief Complaint Admit Date Pacer Check Remote February 09, 2025 5:0 3am Pacer Check Remote February 25, 2025 3: 10am Pacer Check Remote February 27, 2025 2: 00am Pacer Check Remote March 01, 2025 5: 12am cough March 12, 2025 4:16pm SCREENING March 14, 2025 3:33pm Hypertension April 10, 2025 2: 58pm 2 W FU April 24, 2025 3 :19pm DYSPHAGIA, THORACIC SPINE PAIN April 042024 12:38pm Cough *CLAUSTROPHOBIC* April 26 11:50am Reason for Visit Admit Date S/P placement of cardiac pacemaker Octob er 2024 2:58pm Sick sinus syndrome April 10, 2025 2: 58pm Essential (primary) hypertension April 10, 2025 2:58pm Hyperlipidemia April 10, 2025 2: 58pm Paroxysmal atrial fibrillation April 102024 2:58pm S/P placement of cardiac pacemaker Octob 2024 3:19pm Sick sinus syndrome April 24, 2025 3 :19pm Essential (primary) hypertension April 24, 2025 3:19pm Hyperlipidemia April 24, 2025 3 :19pm Paroxysmal atrial fibrillation April 042024 3:19pm Additional Source Comments INFORMATION SOURCE (unrecogn ized section and content) DATE CREATED AUTHOR 12/23/2017 [facility] DATE CREATED AUTHOR AUTHOR'S ORGANIZ ATION 12/27/2017 [facility] DATE CREATED AUTHOR AUTHOR'S ORGANIZ ATION 02/20/2018 [facility] DATE CREATED AUTHOR AUTHOR'S ORGANIZ ATION 12/13/2020 [facility] DATE CREATED AUTHOR AUTHOR'S ORGANIZ ATION 09/29/2023 [facility] ([place]) DATE CREATED AUTHOR AUTHOR'S ORGANIZ ATION 10/06/2024 [facility] DATE CREATED AUTHOR AUTHOR'S ORGANIZ ATION 05/09/2025 [facility] Goals (unrecognized section and content) Goals may be documented in a n alternate sectionGoals may be documented in an alternate sectionGoals may be documented in an alternate sectionGoals may be documented in an alternate sectionGoals may be documented in an alternate section No data available for this sectionGoals may be documented in an alternate section No data available for this section No data available for this section No data available for this sectionGoals may be documented in an alternate sectionGoals may be documented in an alternate section No data available for this sectionGoals may be documented in an alternate section No data available for this section No data available for this section No data available for this section No data available for this sectionGoals may be documented in an alternate section No data available for this section No data available for this section No data available for this sectionGoals may be documented in an alternate sectionGoals may be documented in an alternate sectionGoals may be documented in an alternate sectionGoals may be documented in an alternate sectionGoals may be documented in an alternate sectionGoals may be documented in an alternate sectionGoals may be documented in an alternate sectionGoals may be documented in an alternate sectionGoals may be documented in an alternate sectionGoals may be documented in an alternate section Care Team (unrecognized sect ion and content) Care Team Personnel Name: RIAN ROMERO MD Member Role: Primary Care Physician Address: Address: [address] [place] [address] [address] [id number]- Name: MARLY DE LUNA MD Position: ED Physician Member Role: ED Physician Address: Address: [facility] [address] [place] [id number]- Name: Teagan Segovia RN Position: RN Member Role: ED RN Care Team Related Persons Name: TIARA SADLER Address: [address] Name: JONI DAVIS Address: [address] Care Team Personnel Name: RIAN ROEMRO MD Member Role: Primary Care Physician Address: Address: [address] [place] [address] [address] [place] [address]- Name: CANDICE MCCOY MD Position: ED Physician Member Role: ED Physician Address: Address: [address] [place] [id number]- Care Team Related Persons Name: TIARA SADLER Address: [place] [id number] [place] [address] [place] Name: JONI DAVIS Address: [place] [id number] [place] [address] Care Team Personnel Name: RIAN ROMERO MD Member Role: Primary Care Physician Address: Address: [address] [place] [address] Care Team Related Persons Name: TIARA SADLER Address: Home [id number] [place] [address] [place] Name: JONI DAVIS Address: [place] [id number] [place] [address] Care Teams (unrecognized sec tion and content) Team Status: Active Member Role Status Dates Dr. Rian Romero MD Family Provider Active Dr. Rian Romero MD Primary Care Provider Active Team Status: Inactive Member Role Status Dates Dr. Rian Romero MD Primary Care Provider, Referr ing Provider Active Dr. Mukesh Garcia MD Attending Provider Active Team Status: Active Member Role Status Dates Dr. Rian Romero MD Primary Care Provider Active Dr. Mukesh Garcia MD Attending Provider Active Team Status: Inactive Member Role Status Dates Dr. Rian Romero MD Primary Care Provider, Attend ing Provider Active Rian Romero MD Referring Provider Active Team Status: Inactive Member Role Status Dates Dr. Rian Romero MD Primary Care Provider Active Dr. Mukesh Garcia MD Attending Provider, Referring Pro vider Active Team Status: Inactive Member Role Status Dates Dr. Rian Romero MD Primary Care Provider Active Dr. Mukesh Garcia MD Attending Provider Active Team Status: Inactive Member Role Status Dates Dr. Rian Romero MD Primary Care Provider, Referr ing Provider Active Tiara Allen PA, PA Attending Provider Active Team Status: Inactive Member Role Status Dates Dr. Rian Romero MD Primary Care Provider, Referr ing Provider Active Nelia Mayfield Active Dr. Mukesh Garcia MD Attending Provider Active Team Status: Active Member Role Status Dates Dr. Rian Romero MD Primary Care Provider Active Dr. Abhi Amin MD Attending Provider, Referring P rovider Active Team Status: Active Member Role Status Dates Dr. Rian Romero MD Primary Care Provider, Attend ing Provider Active Team Status: Inactive Member Role Status Dates Dr. Rian Romero MD Primary Care Pr ovider, Attending Provider, Referring Provider Active Team Status: Inactive Member Role Status Dates Dr. Rian Romero MD Primary Care Provider Active Dr. Abhi Amin MD Attending Provider, Referring P rovider Active Team Status: Inactive Member Role Status Dates Dr. Rian Romero MD Primary Care Provider, Attend ing Provider Active Team Status: Active Member Role Status Dates Dr. Rian Romero MD Primary Care Provider Active Team Status: Inactive Member Role Status Dates Dr. Rian Romero MD Primary Care Provider Active Start: May 24, 2024 End: May 24, 2024 RAVEN Lopez Attending Provider Active Star t: May 24, 2024 End: May 24, 2024 RAVEN Lopez Referring Provider Active Star t: May 24, 2024 End: May 24, 2024 Team Status: Active Member Role Status Dates Dr. Rian Romero MD Primary Care Provider Active Start: May 24, 2024 Dr. Regulo Baxter MD Attending Provider Active S tart: May 24, 2024 RAVEN Lopez Referring Provider Active Star t: May 24, 2024 Team Status: Inactive Member Role Status Dates Dr. Rian Romero MD Primary Care Provider Active Start: July 06, 2024 End: July 06, 2024 Dr. Rian Romero MD Attending Provider Active Start: July 06, 2024 End: July 06, 2024 Dr. Rian Romero MD Referring Provider Active Start: July 06, 2024 End: July 06, 2024 Team Status: Inactive Member Role Status Dates Dr. Rian Romero MD Referring Provider Active Start: July 25, 2024 End: July 25, 2024 RAVEN Lopez Attending Provider Active Star t: July 25, 2024 End: July 25, 2024 Team Status: Inactive Member Role Status Dates Dr. Mukesh Garcia MD Attending Provider Active S tart: August 01, 2024 End: August 01, 2024 Team Status: Inactive Member Role Status Dates Dr. Rian Romero MD Primary Care Provider Active Start: August 16, 2024 End: August 16, 2024 Dr. Mukesh Garcia MD Attending Provider Active S tart: August 16, 2024 End: August 16, 2024 Team Status: Inactive Member Role Status Dates Dr. Rian Romero MD Primary Care Provider Active Start: August 16, 2024 End: August 16, 2024 Dr. Rian oRmero MD Referring Provider Active Start: August 16, 2024 End: August 16, 2024 Dr. Mukesh Garcia MD Attending Provider Active S tart: August 16, 2024 End: August 16, 2024 Team Status: Inactive Member Role Status Dates Dr. Rian Romero MD Primary Care Provider Active Start: August 16, 2024 End: August 16, 2024 Dr. Rian Romero MD Referring Provider Active Start: August 16, 2024 End: August 16, 2024 Rian Dunham NP, [employer]IENT [employer]OM[employer] DESIGNER-C Attending Provider Active S tart: August 16, 2024 End: August 16, 2024 Team Status: Inactive Member Role Status Dates Dr. Rian Romero MD Primary Care Provider Active Start: September 17, 2024 End: September 17, 2024 Dr. Francisco Dyson MD Attending Provider Active Start: September 17, 2024 End: September 17, 2024 Dr. Francisco Dyson MD Referring Provider Active Start: September 17, 2024 End: September 17, 2024 Team Status: Inactive Member Role Status Dates Dr. Rian Romero MD Primary Care Provider Active Start: September 21, 2024 End: September 21, 2024 Jamir Elizabeth [employer]IENT [employer]OMOBILE DESIGNER, [employer]IENT [employer]OM[employer]BI[employer] DESIGNER-C Attending Provider Active Start: September 21, 2024 End: September 21, 2024 Jamir Daytonorrlory [employer] E[employer]IENT AUTOMOBILE DESIGNER, F[employer] E[employer]IENT AUTOMOBILE DESIGNER-C Referring Provider Active Start: September 21, 2024 End: September 21, 2024 Team Status: Inactive Member Role Status Dates Dr. Rian Romero MD Primary Care Provider Active Start: October 23, 2024 End: October 23, 2024 Jamir Elizabeth F[employer] E[employer]IENT AUTOMOBILE DESIGNER, F[employer] E[employer]IENT [employer]OMOBILE DESIGNER-C Attending Provider Active Start: October 23, 2024 End: October 23, 2024 Jamir McMorrow F[employer] E[employer]IENT AUTOMOBILE DESIGNER, F[employer] E[employer]IENT [employer]OMOBILE DESIGNER-C Referring Provider Active Start: October 23, 2024 End: October 23, 2024 Team Status: Inactive Member Role Status Dates Dr. Rian Romero MD Primary Care Provider Active Start: October 31, 2024 End: October 31, 2024 Dr. Mukesh Garcia MD Attending Provider Active S tart: October 31, 2024 End: October 31, 2024 Team Status: Active Member Role Status Dates Dr. Rian Romero MD Primary Care Provider Active Start: November 14, 2024 Jamir Elizabeth [employer] E[employer]IENT AUTOMOBILE DESIGNER, F[employer] E[employer]IENT [employer]OMOBILE DESIGNER-C Attending Provider Active Start: November 14, 2024 Jamir Elizabeth F[employer] E[employer]IENT AUTOMOBILE DESIGNER, F[employer] E[employer]IENT AUTOMOBILE DESIGNER-C Referring Provider Active Start: November 14, 2024 Team Status: Inactive Member Role Status Dates Dr. Rian Romero MD Primary Care Provider Active Start: November 16, 2024 End: November 16, 2024 Dr. Rian Romero MD Attending Provider Active Start: November 16, 2024 End: November 16, 2024 Dr. Rian Romero MD Referring Provider Active Start: November 16, 2024 End: November 16, 2024 Team Status: Inactive Member Role Status Dates Dr. Rian Romero MD Primary Care Provider Active Start: December 14, 2024 End: December 14, 2024 Jamir Johnson [employer] E[employer]IENT AUTOMOBILE DESIGNER, [employer] E[employer]IENT [employer]OMOBILE DESIGNER-C Attending Provider Active Start: December 14, 2024 End: December 14, 2024 Jamir Johnson F[employer] E[employer]IENT AUTOMOBILE DESIGNER, F[employer] E[employer]IENT [employer]OMOBILE DESIGNER-C Referring Provider Active Start: December 14, 2024 End: December 14, 2024 Team Status: Active Member Role/Relationship Status Dates Dr. Rian Romero MD Primary Care Provider Active Team Status: Inactive Member Role/Relationship Status Dates Dr. Rian Romero MD Primary Care Provider Active Start: October 23, 2024 End: October 23, 2024 Jamir Johnson F[employer] E[employer]IENT AUTOMOBILE DESIGNER, F[employer] E[employer]IENT [employer]OMOBILE DESIGNER-C Attending Provider Active Start: October 23, 2024 End: October 23, 2024 Jamir Johnson F[employer] E[employer]IENT AUTOMOBILE DESIGNER, F[employer] E[employer]IENT [employer]OMOBILE DESIGNER-C Referring Provider Active Start: October 23, 2024 End: October 23, 2024 Team Status: Inactive Member Role/Relationship Status Dates Dr. Rian Romero MD Primary Care Provider Active Start: October 31, 2024 End: October 31, 2024 Dr. Mukesh Garcia MD Attending Provider Active S tart: October 31, 2024 End: October 31, 2024 Team Status: Inactive Member Role/Relationship Status Dates Dr. Rian Romero MD Primary Care Provider Active Start: November 16, 2024 End: November 16, 2024 Dr. Rian Romero MD Attending Provider Active Start: November 16, 2024 End: November 16, 2024 Dr. Rian Romero MD Referring Provider Active Start: November 16, 2024 End: November 16, 2024 Team Status: Inactive Member Role/Relationship Status Dates Dr. Rian Romero MD Primary Care Provider Active Start: December 14, 2024 End: December 14, 2024 Jamir Johnson F[employer] E[employer]IENT AUTOMOBILE DESIGNER, F[employer] E[employer]IENT AUTOMOBILE DESIGNER-C Attending Provider Active Start: December 14, 2024 End: December 14, 2024 Jamir Johnson F[employer] E[employer]ICIENT AUTOMOBILE DESIGNER, F[employer] EFFICIENT AUTOMOBILE DESIGNER-C Referring Provider Active Start: December 14, 2024 End: December 14, 2024 Team Status: Inactive Member Role/Relationship Status Dates Dr. Rian Romero MD Primary Care Provider Active Start: February 09, 2025 End: February 09, 2025 Dr. Mukesh Garcia MD Attending Provider Active S tart: February 09, 2025 End: February 09, 2025 Team Status: Inactive Member Role/Relationship Status Dates Dr. Rian Romero MD Primary Care Provider Active Start: October 31, 2024 End: October 31, 2024 Dr. Mukesh Garcia MD Attending Provider Active S tart: October 31, 2024 End: October 31, 2024 Team Status: Inactive Member Role/Relationship Status Dates Dr. Rian Romero MD Primary Care Provider Active Start: November 16, 2024 End: November 16, 2024 Dr. Rian Romero MD Attending Provider Active Start: November 16, 2024 End: November 16, 2024 Dr. Rian Romero MD Referring Provider Active Start: November 16, 2024 End: November 16, 2024 Team Status: Inactive Member Role/Relationship Status Dates Dr. Rian Romero MD Primary Care Provider Active Start: December 14, 2024 End: December 14, 2024 Jamir Johnson F[employer] E[employer]IENT AUTOMOBILE DESIGNER, F[employer] EFFICIENT AUTOMOBILE DESIGNER-C Attending Provider Active Start: December 14, 2024 End: December 14, 2024 Jamir Johnson F[employer]EL EFFICIENT AUTOMOBILE DESIGNER, F[employer]EL EFF[employer]IENT AUTOMOBILE DESIGNER-C Referring Provider Active Start: December 14, 2024 End: December 14, 2024 Team Status: Inactive Member Role/Relationship Status Dates Dr. Rian Romero MD Primary Care Provider Active Start: February 09, 2025 End: February 09, 2025 Dr. Mukesh Garcia MD Attending Provider Active S tart: February 09, 2025 End: February 09, 2025 Team Status: Inactive Member Role/Relationship Status Dates Dr. Rian Romero MD Primary Care Provider Active Start: February 19, 2025 End: February 19, 2025 Dr. Rian Romero MD Attending Provider Active Start: February 19, 2025 End: February 19, 2025 Dr. Rian Romero MD Referring Provider Active Start: February 19, 2025 End: February 19, 2025 Team Status: Inactive Member Role/Relationship Status Dates Dr. Rian Romero MD Primary Care Provider Active Start: February 25, 2025 End: February 25, 2025 Dr. Mukesh Garcia MD Attending Provider Active S tart: February 25, 2025 End: February 25, 2025 Team Status: Inactive Member Role/Relationship Status Dates Dr. Rian Romero MD Primary Care Provider Active Start: February 27, 2025 End: February 27, 2025 Dr. Mukesh Garcia MD Attending Provider Active S tart: February 27, 2025 End: February 27, 2025 Team Status: Inactive Member Role/Relationship Status Dates Dr. Rian Romero MD Primary Care Provider Active Start: November 16, 2024 End: November 16, 2024 Dr. Rian Romero MD Attending Provider Active Start: November 16, 2024 End: November 16, 2024 Dr. Rian Romero MD Referring Provider Active Start: November 16, 2024 End: November 16, 2024 Team Status: Inactive Member Role/Relationship Status Dates Dr. Rian Romero MD Primary Care Provider Active Start: December 14, 2024 End: December 14, 2024 Jamir Johnson F[employer] EFFICIENT AUTOMOBILE DESIGNER, F[employer]EL EFFICIENT AUTOMOBILE DESIGNER-C Attending Provider Active Start: December 14, 2024 End: December 14, 2024 Jamir Johnson FUEL EFFICIENT AUTOMOBILE DESIGNER, FUEL EFFICIENT AUTOMOBILE DESIGNER-C Referring Provider Active Start: December 14, 2024 End: December 14, 2024 Team Status: Inactive Member Role/Relationship Status Dates Dr. Rian Romero MD Primary Care Provider Active Start: February 09, 2025 End: February 09, 2025 Dr. Mukesh Garcia MD Attending Provider Active S tart: February 09, 2025 End: February 09, 2025 Team Status: Inactive Member Role/Relationship Status Dates Dr. Rian Romero MD Primary Care Provider Active Start: February 19, 2025 End: February 19, 2025 Dr. Rian Romero MD Attending Provider Active Start: February 19, 2025 End: February 19, 2025 Dr. Rian Romero MD Referring Provider Active Start: February 19, 2025 End: February 19, 2025 Team Status: Inactive Member Role/Relationship Status Dates Dr. Rian Romero MD Primary Care Provider Active Start: February 25, 2025 End: February 25, 2025 Dr. Mukesh Garcia MD Attending Provider Active S tart: February 25, 2025 End: February 25, 2025 Team Status: Inactive Member Role/Relationship Status Dates Dr. Rian Romero MD Primary Care Provider Active Start: February 27, 2025 End: February 27, 2025 Dr. Mukesh Garcia MD Attending Provider Active S tart: February 27, 2025 End: February 27, 2025 Team Status: Inactive Member Role/Relationship Status Dates Dr. Rian Romero MD Primary Care Provider Active Start: March 01, 2025 End: March 01, 2025 Dr. Mukesh Garcia MD Attending Provider Active S tart: March 01, 2025 End: March 01, 2025 Team Status: Active Member Role/Relationship Status Dates Dr. Rian Romero MD Primary care physician Active Team Status: Inactive Member Role/Relationship Status Dates Dr. Rian Romero MD Primary care physician Active Start: December 14, 2024 End: December 14, 2024 Jamir Johnson F[employer] E[employer]ICIENT AUTOMOBILE DESIGNER, F[employer] E[employer]ICIENT AUTOMOBILE DESIGNER-C Attending physician Active Start: December 14, 2024 End: December 14, 2024 Jamir Johnson FUEL EFFICIENT AUTOMOBILE DESIGNER, F[employer] EFFICIENT AUTOMOBILE DESIGNER-C Referring Provider Active Start: December 14, 2024 End: December 14, 2024 Team Status: Inactive Member Role/Relationship Status Dates Dr. Rian Romero MD Primary care physician Active Start: February 09, 2025 End: February 09, 2025 Dr. Mukesh Garcia MD Attending physician Active Start: February 09, 2025 End: February 09, 2025 Team Status: Inactive Member Role/Relationship Status Dates Dr. Rian Romero MD Primary care physician Active Start: February 19, 2025 End: February 19, 2025 Dr. Rian Romero MD Attending physician Active Start: February 19, 2025 End: February 19, 2025 Dr. Rian Romero MD Referring Provider Active Start: February 19, 2025 End: February 19, 2025 Team Status: Inactive Member Role/Relationship Status Dates Dr. Rian Romero MD Primary care physician Active Start: February 25, 2025 End: February 25, 2025 Dr. Mukesh Garcia MD Attending physician Active Start: February 25, 2025 End: February 25, 2025 Team Status: Inactive Member Role/Relationship Status Dates Dr. Rian Romero MD Primary care physician Active Start: February 27, 2025 End: February 27, 2025 Dr. Mukesh Garcia MD Attending physician Active Start: February 27, 2025 End: February 27, 2025 Team Status: Inactive Member Role/Relationship Status Dates Dr. Rian Romero MD Primary care physician Active Start: March 01, 2025 End: March 01, 2025 Dr. Mukesh Garcia MD Attending physician Active Start: March 01, 2025 End: March 01, 2025 Team Status: Inactive Member Role/Relationship Status Dates Dr. Rian Romero MD Primary care physician Active Start: March 12, 2025 End: March 12, 2025 Dr. Rian Romero MD Attending physician Active Start: March 12, 2025 End: March 12, 2025 Dr. Rian Romero MD Referring Provider Active Start: March 12, 2025 End: March 12, 2025 Team Status: Active Member Role/Relationship Status Dates Dr. Rian Romero MD Primary care physician Active Start: March 14, 2025 Dr. Rian Romero MD Attending physician Active Start: March 14, 2025 Dr. Rian Romero MD Referring Provider Active Start: March 14, 2025 Team Status: Inactive Member Role/Relationship Status Dates Dr. Rian Romero MD Primary care physician Active Start: March 14, 2025 End: March 14, 2025 Dr. Rian Romero MD Attending physician Active Start: March 14, 2025 End: March 14, 2025 Dr. Rian Romero MD Referring Provider Active Start: March 14, 2025 End: March 14, 2025 Team Status: Inactive Member Role/Relationship Status Dates Dr. Rian Romero MD Primary care physician Active Start: April 10, 2025 End: April 10, 2025 Dr. Rian Romero MD Referring Provider Active Start: April 10, 2025 End: April 10, 2025 Rian Dunham NP, [employer] E[employer]IENT [employer]OMO[employer] DESIGNER-C Attending physician Active Start: April 10, 2025 End: April 10, 2025 Team Status: Inactive Member Role/Relationship Status Dates Dr. Rian Romero MD Primary care physician Active Start: February 09, 2025 End: February 09, 2025 Dr. Mukesh Garcia MD Attending physician Active Start: February 09, 2025 End: February 09, 2025 Team Status: Inactive Member Role/Relationship Status Dates Dr. Rian Romero MD Primary care physician Active Start: February 19, 2025 End: February 19, 2025 Dr. Rian Romero MD Attending physician Active Start: February 19, 2025 End: February 19, 2025 Dr. Rian Romero MD Referring Provider Active Start: February 19, 2025 End: February 19, 2025 Team Status: Inactive Member Role/Relationship Status Dates Dr. Rian Romero MD Primary care physician Active Start: February 25, 2025 End: February 25, 2025 Dr. Mukesh Garcia MD Attending physician Active Start: February 25, 2025 End: February 25, 2025 Team Status: Inactive Member Role/Relationship Status Dates Dr. Rian Romero MD Primary care physician Active Start: February 27, 2025 End: February 27, 2025 Dr. Mukesh Garcia MD Attending physician Active Start: February 27, 2025 End: February 27, 2025 Team Status: Inactive Member Role/Relationship Status Dates Dr. Rian Romero MD Primary care physician Active Start: March 01, 2025 End: March 01, 2025 Dr. Mukesh Garcia MD Attending physician Active Start: March 01, 2025 End: March 01, 2025 Team Status: Inactive Member Role/Relationship Status Dates Dr. Rian Romero MD Primary care physician Active Start: March 12, 2025 End: March 12, 2025 Dr. Rian Romero MD Attending physician Active Start: March 12, 2025 End: March 12, 2025 Dr. Rian Romero MD Referring Provider Active Start: March 12, 2025 End: March 12, 2025 Team Status: Inactive Member Role/Relationship Status Dates Dr. Rian Romero MD Primary care physician Active Start: March 14, 2025 End: March 14, 2025 Dr. Rian Romero MD Attending physician Active Start: March 14, 2025 End: March 14, 2025 Dr. Rian Romero MD Referring Provider Active Start: March 14, 2025 End: March 14, 2025 Team Status: Inactive Member Role/Relationship Status Dates Dr. Rian Romero MD Primary care physician Active Start: April 10, 2025 End: April 10, 2025 Dr. Rian Romero MD Referring Provider Active Start: April 10, 2025 End: April 10, 2025 Rian Dunham NP F[employer] E[employer]IENT [employer]OMOBI[employer] DESIGNER-C Attending physician Active Start: April 10, 2025 End: April 10, 2025 Team Status: Inactive Member Role/Relationship Status Dates Dr. Rian Romero MD Primary care physician Active Start: April 24, 2025 End: April 24, 2025 Dr. Rian Romero MD Referring Provider Active Start: April 24, 2025 End: April 24, 2025 Rian Dunham NP F[employer] E[employer]IENT [employer]OMO[employer] DESIGNER-C Attending physician Active Start: April 24, 2025 End: April 24, 2025 Team Status: Inactive Member Role/Relationship Status Dates Dr. Rian Romero MD Primary care physician Active Start: April 25, 2025 End: April 25, 2025 Dr. Rian Romero MD Attending physician Active Start: April 25, 2025 End: April 25, 2025 Dr. Rian Romero MD Referring Provider Active Start: April 25, 2025 End: April 25, 2025 NP. Mellissa Storey Nurse Practitioner Active Star t: April 25, 2025 End: April 25, 2025 Team Status: Inactive Member Role/Relationship Status Dates Dr. Rian Romero MD Primary care physician Active Start: April 26, 2025 End: April 26, 2025 Dr. Rian Romero MD Attending physician Active Start: April 26, 2025 End: April 26, 2025 Dr. Rian Romero MD Referring Provider Active Start: April 26, 2025 End: April 26, 2025 Rian Dunham NP [employer] DES[employer] Nurse Practitioner Active S tart: April 26, 2025 End: April 26, 2025 FOR RECORDS PERTAINING TO PATIENTS WHO ARE OR HAVE BEEN ENROLLED IN A CHEMICAL DEPENDENCY/SUBSTANCEABUSE PROGRAM, SOME INFORMATION MAY BE OMITTED. This clinical summary was aggregated from multiple sources. Caution should be exercised in using it in the provision of clinical care. This summary normalizes information from multiple sources, and as a consequence, information in this document may materially change the coding, format and clinical context of patient data. In addition, data may be omitted in some cases. CLINICAL DECISIONS SHOULD BE BASED ON THE PRIMARY CLINICAL RECORDS. [facility] [facility] provides no warranty or guarantee of the accuracy or completeness of information in this document.
[2025-05-30 09:08] LABS: Alpha Antitrypsin Serum 158 mg/dL (101-187)
== END | disposition home or self-care (01) ==
LOC: MFPLAB 15:42
PROVIDERS: PCP Family Medicine; Visit Provider Family Medicine
DX: J44.9 Chronic obstructive pulmonary disease, unspecified (principal); Z14.1 Cystic fibrosis carrier
CPT/HCPCS: 36415; 81220; 82103